=== PATIENT | female | born 1970 | race Two or more races ===

== ENCOUNTER 2020-03-08 12:35 | Emergency (ER) | payer OTHER, SELFPAY | END 2020-03-08 14:47 | disposition left against medical advice (07) | LOC: HO.ED 14:24 | PROVIDERS: Emergency Provider Internal Medicine; PCP Internal Medicine | DX: M54.5 Low back pain (principal); R10.9 Unspecified abdominal pain | CPT/HCPCS: 99281 ==

== ENCOUNTER 2020-03-14 12:24 | Emergency (ER) | payer OTHER, SELFPAY ==
[2020-03-14 13:22] VITALS: BP 138/80; PULSE 76; RESP 20; TEMP 37.6; O2SAT 94; BMI 48.6
--- NOTE | 2020-03-14 14:58 | PC.NURSE ---
PATIENT STATED TO THIS NURSE THAT SHE WAS GOING OUTSIDE FOR SOME AIR, PATIENT WAS THEN SEEN GETTING INTO A VEHICLE AND LEFT.
== END 2020-03-14 16:00 | disposition left against medical advice (07) ==
PROVIDERS: Emergency Provider Emergency Medicine; PCP Internal Medicine
DX: R10.9 Unspecified abdominal pain (principal)
CPT/HCPCS: 99281; 99282

== ENCOUNTER 2020-03-21 14:30 | Emergency (ER) | payer OTHER, SELFPAY ==
[2020-03-21 14:43] VITALS: BP 172/90; PULSE 101; RESP 18; TEMP 36.7; O2SAT 97; BMI 49.4
--- NOTE | 2020-03-21 15:05 | CT_ITS ---
EXAMINATION: CT ABDOMEN AND PELVIS WITHOUT CONTRAST CLINICAL INFORMATION: 49-year-old female with right-sided flank pain. Rule out kidney stone. COMPARISON: CT abdomen pelvis 11/04/2018 TECHNIQUE: Multidetector volumetric imaging was performed from the superior aspect of the liver through the pubic symphysis. Sagittal and coronal reformatted images were obtained on the technologist's workstation. Examination limited secondary to quantum mottle artifact from patient body habitus. This CT examination was performed using dose optimization techniques as appropriate, variously including the following: *Automated exposure control *Adjustment of mA and/or kV according to patient size (this includes techniques or standardized protocols for targeted exams where dose is matched to indication/reason for exam; i.e. extremities or head) *Use of iterative reconstruction technique DLP: 1626 mGy-cm FINDINGS: Visualized lung bases are well aerated. The liver is normal in size but demonstrates severely decreased attenuation. The gallbladder is decompressed but grossly unremarkable. The pancreas, spleen and adrenal glands are unremarkable. Symmetrically sized kidneys. No renal calculi or hydronephrosis bilaterally. Mild bilateral perinephric stranding is chronic. Normal caliber loops of small and large bowel. Normal appendix. Nonaneurysmal abdominal aorta. The bladder is normal in appearance. Unremarkable CT appearance of the uterus. No inguinal lymphadenopathy. No gross free pelvic fluid. Moderate diffuse degenerative changes of the spine. IMPRESSION: 1. No renal calculi or hydronephrosis of either kidney. 2. Diffusely decreased liver attenuation suggesting hepatic steatosis. Correlation with liver enzymes recommended.
[2020-03-21 15:25] LABS: Hematocrit 45.6 % (37-47); Hemoglobin 15.3 g/dl (12.0-16.0); Mean Corpuscular HGB Conc 33.6 g/dl (31.0-35.0); Mean Corpuscular Hemoglobin 28.6 pg (27.0-33.0); Mean Corpuscular Volume 85.2 fL (80-98); Mean Platelet Volume 10.4 fL (9.4-12.3); Platelet Count 225 X10*3/uL (160-400); Red Blood Count 5.35 X10*6/uL (4.20-5.50); Red Cell Distribution Width 12.9 % (11.0-16.0); White Blood Count 7.8 X10*3/uL (4.8-10.8)
[2020-03-21 15:26] LABS: Color Urine YELLOW; Glucose Urine UA >=1000 MG/DL (NEG); Leukocyte Esterase Urine NEG (NEG); Nitrite Urine NEG (NEG); PH 6.5 (5.0-8.0); Urine Blood TRACE (NEG); Urine Ketones NEG (NEG); Urine Protein NEG (NEG-TRACE)
[2020-03-21 15:27] LABS: Appearance Urine CLEAR
[2020-03-21 15:31] VITALS: BP 122/67; PULSE 81; RESP 20; TEMP 36.6; O2SAT 97
--- NOTE | 2020-03-21 15:39 | PC.NURSE ---
pt had iv established, labs obtained. pt then asking rn to remove iv because its too painful . iv removed, provider made aware. pt to be medicated w po meds. taken to ct scan via stretcher.
[2020-03-21 15:42] LABS: Bacteria Urine 1+ /LPF; RBC Urine 0-2 /HPF (0); Squamous Epithelial Cell Urine 2+ /LPF; WBC Urine 0 /HPF (0-4)
[2020-03-21 15:54] LABS: Alanine Aminotransferase 12 U/L (0-31); Albumin Level 3.5 g/dL (3.5-5.0); Alkaline Phosphatase 96 U/L (39-117); Anion Gap 11 (12-20); Aspartate Amino Transferase 16 U/L (5-31); Bilirubin Direct 0.2 mg/dL (0.0-0.5); Bilirubin Total 0.4 mg/dL (0.0-1.0); Blood Urea Nitrogen 9 mg/dL (9-16); Carbon Dioxide 32 mmol/L (22-29); Chloride 98 mmol/L (96-108); Creatinine Clr Calc Pharmacy 125.8; Estimated Glomerular Filt Rate > 60; Glucose Random 417 mg/dL (60-115); Lipase 29 U/L (8-78); Potassium 4.6 mmol/l (3.3-5.1); Sodium 136 mmol/L (135-145); Total Protein 6.9 g/dL (6.5-8.0)
[2020-03-21] MEDS: iohexoL 350 MG/ML 100 ML INFUS..BTL 85 ML IV (16:04)
[2020-03-21] MEDS: oxyCODONE HCl Immed Release 5 MG TABLET PO (16:24)
--- NOTE | 2020-03-21 16:29 | PC.NURSE ---
pt medicated per emar, tolerating po w/o issue.
--- NOTE | 2020-03-21 16:30 | ED_ITS ---
HPI - Abdominal Pain General Chief Complaint: Abdominal Pain Stated Complaint: FLANK PAIN Time Seen by Provider: 03/21/20 15:05 Source: patient Mode of arrival: ambulatory Limitations: no limitations History of Present Illness HPI narrative: patient presented with right flank pain for couple weeks, pain more with movement, also noticed blood in the urine on and off. Related Data Home Medications Medication Instructions Recorded Confirmed aripiprazole 2 mg tablet 2 mg PO DAILY 03/09/20 atorvastatin 40 mg tablet 40 mg PO DAILY 03/09/20 blood sugar diagnostic #10 ea 03/09/20 bupropion HCl 150 mg 24 hr tablet, 150 mg PO DAILY 03/09/20 extended release bupropion HCl 300 mg 24 hr tablet, 300 mg PO DAILY 03/09/20 extended release clindamycin HCl 300 mg capsule 300 mg PO TID 03/09/20 cyanocobalamin (vitamin B-12) 1,000 mcg PO DAILY 03/09/20 1,000 mcg tablet docusate sodium 100 mg capsule 100 mg PO BID 03/09/20 ergocalciferol (vitamin D2) 1,250 PO 03/09/20 mcg (50,000 unit) capsule escitalopram oxalate 10 mg tablet 10 mg PO DAILY 03/09/20 flash glucose sensor #1 ea 03/09/20 fluocinonide 0.05 % topical cream applic TOPICAL 03/09/20 hydroxyzine HCl 25 mg tablet 25 mg PO BID 03/09/20 insulin degludec 200 unit/mL (3 unit SUBCUT 03/09/20 mL) subcutaneous pen insulin glargine 100 unit/mL (3 50 unit SUBCUT BEDTIME 03/09/20 mL) subcutaneous pen insulin lispro 100 unit/mL unit SUBCUT 03/09/20 subcutaneous pen levothyroxine 200 mcg tablet 200 mcg PO DAILY 03/09/20 levothyroxine 50 mcg tablet 50 mcg PO DAILY 03/09/20 lorazepam 1 mg tablet 0.5 mg PO DAILY PRN 03/09/20 losartan 25 mg tablet 25 mg PO DAILY 03/09/20 omeprazole 20 mg capsule,delayed 20 mg PO DAILY 03/09/20 release sitagliptin 100 mg tablet 100 mg PO DAILY 03/09/20 venlafaxine 75 mg capsule,extended 75 mg PO DAILY 03/09/20 release 24 hr Previous Rx's Medication Instructions Recorded naproxen 500 mg tablet 500 mg PO BID PRN #30 tab 03/09/20 blood sugar diagnostic #100 ea 03/11/20 flash glucose sensor See Rx Instructions MISCELLANEOUS 03/11/20 Q2W #1 ea gabapentin 800 mg tablet 800 mg PO TID #84 tab 03/11/20 oxycodone-acetaminophen [Percocet] 1 tab PO Q8H PRN #10 tab 03/21/20 Allergies Allergy/AdvReac Type Severity Reaction Status Date / Time doxycycline [DOXYCYCLINE] Allergy Severe THROAT Verified 03/14/20 13:22 SWELLING clindamycin [CLINDAMYCIN] Allergy Intermediate CHEST PAIN Verified 03/14/20 13:22 Sulfa (Sulfonamide Allergy Unknown makes her Verified 03/14/20 13:22 Antibiotics) sick, vomit trimethoprim [From BACTRIM] Allergy Unknown NAUSEA & Verified 03/14/20 13:22 VOMITING sulfamethoxazole AdvReac Mild NAUSEA & Verified 03/14/20 13:22 [From BACTRIM] VOMITING lisinopril Allergy Unknown headaches Uncoded 03/14/20 13:22 Review of Systems Review of Systems Yes all other systems are reviewed and are negative Physical Exam Vital Signs: Vital Signs: Vital Signs Temp Pulse Resp BP Pulse Ox 03/21/20 15:31 98 F 81 20 122/67 97 03/21/20 14:43 98.0 F 101 H 18 172/90 H 97 Body Mass Index 49.4 Const: General: cooperative and healthy appearing Orientation/consciousness: oriented to person and oriented to place HENMT: Head: Yes normal to inspection Ears: hearing grossly normal bilaterally General nose exam: Normal external nose present Eyes: General: appearance normal, both eyes and all related structures Neck: Neck: Yes normal visual inspection and Yes full ROM Chest: Chest palpation & inspection: normal inspection of the chest Resp: Effort & Inspection: normal respiratory effort and able to speak in co mplete sentences Cardio: Jugular venous distension: no JVD Palpation: normal PMI GI: Inspection: Yes normal to inspection and Yes abdominal wall ecchymosis Palpation (GI): nontender : General: Yes CVA tenderness ( Right.) Back/Spine/Pelvis: Back: CVA tenderness ( Right.) Skin: General skin exam: no rashes or lesions noted Neuro: General: oriented to person and oriented to place Extrem: General: Yes normal to inspection Course Course Course Narrative: 49-year-old female presented with right flank pain, patient had a history of kidney stone and noticed some blood in the urine on and off, but also physical exam is more consistent with muscular pain. Will obtain UA, labs, CT of the abdomen pelvis, pain medication. MDM - Abdominal Pain MDM Narrative Medical decision making narrative: 49-year-old female with couple weeks of right flank pain, found to be hyperglycemic, no anion gap elevated bicarb. 1. CT /UA of the abdomen pelvis ruled out kidney stone. 2. Hyperglycemia with no DKA. Will give IV fluid and 10 units of insulin IV will recheck sugar. Medical Records Attestation: I reviewed the patient's medical records. Lab Data Attestation: I reviewed the patient's lab results. Result diagrams: 03/21/20 15:19 03/21/20 15:19 Labs: Lab Results 03/21/20 03/21/20 03/21/20 Range/Units 15:18 15:19 15:19 WBC 7.8 (4.8-10.8) X10*3/uL RBC 5.35 (4.20-5.50) X10*6/uL Hgb 15.3 (12.0-16.0) g/dl Hct 45.6 (37-47) % MCV 85.2 (80-98) fL MCH 28.6 (27.0-33.0) pg MCHC 33.6 (31.0-35.0) g/dl RDW 12.9 (11.0-16.0) % Plt Count 225 (160-400) X10*3/uL MPV 10.4 (9.4-12.3) fL Absolute Nucleated RBC 0.000 (0.0-0.012) X10*3/uL Nucleated RBC % (auto) 0.0 (0.0-0.2) /100WBC Sodium 136 (135-145) mmol/L Potassium 4.6 (3.3-5.1) mmol/l Chloride 98 (96-108) mmol/L Carbon Dioxide 32 H (22-29) mmol/L Anion Gap 11 L (12-20) BUN 9 (9-16) mg/dL Creatinine 0.77 (0.5-1.4) mg/dL Estim Creat Clear Calc 125.8 Estimated GFR > 60 Random Glucose 417 H* (60-115) mg/dL Calcium 9.0 (8.4-10.2) mg/dL Total Bilirubin 0.4 (0.0-1.0) mg/dL Direct Bilirubin 0.2 (0.0-0.5) mg/dL AST 16 (5-31) U/L ALT 12 (0-31) U/L Alkaline Phosphatase 96 (39-117) U/L Total Protein 6.9 (6.5-8.0) g/dL Albumin 3.5 (3.5-5.0) g/dL Lipase 29 (8-78) U/L Urine Color YELLOW Urine Appearance CLEAR Urine pH 6.5 (5.0-8.0) Ur Specific [place] 1.020 (1.005-1.025) Urine Protein NEG (NEG-TRACE) MG/DL Urine Glucose (UA) >=1000 H (NEG) MG/DL Urine Ketones NEG (NEG) MG/DL Urine Blood TRACE (NEG) Urine Nitrite NEG (NEG) Ur Leukocyte Esterase NEG (NEG) Urine RBC 0-2 (0) /HPF Urine WBC 0 (0-4) /HPF Ur Squamous Epith Cells 2+ /LPF Urine Bacteria 1+ /LPF Imaging Data CT scan - abdomen: Radiologist's impression: No acute pathology no Ureteral stones. Discharge Plan Discharge Clinical Impression: Flank pain, Acute hyperglycemia Patient Disposition: Home, Self-Care Instructions: Flank Pain (ED), Diabetic Hyperglycemia (ED) Prescriptions: New oxycodone-acetaminophen [Percocet] 5-325 mg tablet 1 tab PO Q8H PRN (Reason: pain) Qty: 10 RF: 0 No Action gabapentin 800 mg tablet 800 mg PO TID Qty: 84 RF: 6 flash glucose sensor [FreeStyle Abdon 14 Day Sensor] Kit See Rx Instructions miscellaneous Q2W Qty: 1 RF: 6 hydroxyzine HCl 25 mg tablet 25 mg PO BID RF: 0 naproxen 500 mg tablet 500 mg PO BID PRN (Reason: pain) Qty: 30 RF: 0 Referrals: Marissa Ward MD [Primary Care Provider] - 2 days PMF Past Medical History Medical History Anxiety Depression Diabetes Surgical History H/O thyroidectomy Hx of tubal ligation Social History Social History Alcohol intake: never Smoking Status: Current every day smoker Use of substances other than those prescribed or required for medical reasons: No Advance Directives: No Advance Directives Information Provided: No
[2020-03-21] MEDS: Insulin Regular, Human 100 UNIT/ML 3 ML VIAL 10 UNIT IVPUSH (17:23)
--- NOTE | 2020-03-21 17:26 | PC.NURSE ---
PT IV REESTABLISHED, PT CONTINUES TO COMPLAIN OF PAIN, APPEARS VERY RESTLESS, OFFERED DIFFERENT SEATING OPTION FOR COMFORT. MEDICATED PER EMAR. GOAL TO GET GLUCOSE <310. PT AWARE OF PLAN OF CARE.
[2020-03-21] MEDS: traMADoL HCL 50 MG TABLET PO (18:08)
[2020-03-21 18:59] LABS: Glucose, Whole Blood 175 mg/dL (60-115)
--- NOTE | 2020-03-21 20:37 | ED.ABDPAIN ---
HPI - Abdominal Pain General Chief Complaint: Abdominal Pain Stated Complaint: FLANK PAIN Time Seen by Provider: 03/21/20 15:05 Source: patient Mode of arrival: ambulatory Limitations: no limitations Related Data Home Medications Medication Instructions Recorded Confirmed aripiprazole 2 mg tablet 2 mg PO DAILY 03/09/20 atorvastatin 40 mg tablet 40 mg PO DAILY 03/09/20 blood sugar diagnostic #10 ea 03/09/20 bupropion HCl 150 mg 24 hr tablet, 150 mg PO DAILY 03/09/20 extended release bupropion HCl 300 mg 24 hr tablet, 300 mg PO DAILY 03/09/20 extended release clindamycin HCl 300 mg capsule 300 mg PO TID 03/09/20 cyanocobalamin (vitamin B-12) 1,000 mcg PO DAILY 03/09/20 1,000 mcg tablet docusate sodium 100 mg capsule 100 mg PO BID 03/09/20 ergocalciferol (vitamin D2) 1,250 PO 03/09/20 mcg (50,000 unit) capsule escitalopram oxalate 10 mg tablet 10 mg PO DAILY 03/09/20 flash glucose sensor #1 ea 03/09/20 fluocinonide 0.05 % topical cream applic TOPICAL 03/09/20 hydroxyzine HCl 25 mg tablet 25 mg PO BID 03/09/20 insulin degludec 200 unit/mL (3 unit SUBCUT 03/09/20 mL) subcutaneous pen insulin glargine 100 unit/mL (3 50 unit SUBCUT BEDTIME 03/09/20 mL) subcutaneous pen insulin lispro 100 unit/mL unit SUBCUT 03/09/20 subcutaneous pen levothyroxine 200 mcg tablet 200 mcg PO DAILY 03/09/20 levothyroxine 50 mcg tablet 50 mcg PO DAILY 03/09/20 lorazepam 1 mg tablet 0.5 mg PO DAILY PRN 03/09/20 losartan 25 mg tablet 25 mg PO DAILY 03/09/20 omeprazole 20 mg capsule,delayed 20 mg PO DAILY 03/09/20 release sitagliptin 100 mg tablet 100 mg PO DAILY 03/09/20 venlafaxine 75 mg capsule,extended 75 mg PO DAILY 03/09/20 release 24 hr Previous Rx's Medication Instructions Recorded naproxen 500 mg tablet 500 mg PO BID PRN #30 tab 03/09/20 blood sugar diagnostic #100 ea 03/11/20 flash glucose sensor See Rx Instructions MISCELLANEOUS 03/11/20 Q2W #1 ea gabapentin 800 mg tablet 800 mg PO TID #84 tab 03/11/20 oxycodone-acetaminophen [Endocet] 1 tab PO Q8H PRN #10 tab 03/21/20 oxycodone-acetaminophen [Percocet] 1 tab PO Q8H PRN #10 tab 03/21/20 Allergies Allergy/AdvReac Type Severity Reaction Status Date / Time doxycycline [DOXYCYCLINE] Allergy Severe THROAT Verified 03/14/20 13:22 SWELLING clindamycin [CLINDAMYCIN] Allergy Intermediate CHEST PAIN Verified 03/14/20 13:22 Sulfa (Sulfonamide Allergy Unknown makes her Verified 03/14/20 13:22 Antibiotics) sick, vomit trimethoprim [From BACTRIM] Allergy Unknown NAUSEA & Verified 03/14/20 13:22 VOMITING sulfamethoxazole AdvReac Mild NAUSEA & Verified 03/14/20 13:22 [From BACTRIM] VOMITING lisinopril Allergy Unknown headaches Uncoded 03/14/20 13:22 Physical Exam Vital Signs: Vital Signs: Vital Signs Temp Pulse Resp BP Pulse Ox 03/21/20 15:31 98 F 81 20 122/67 97 03/21/20 14:43 98.0 F 101 H 18 172/90 H 97 Body Mass Index 49.4 MDM - Abdominal Pain Lab Data Result diagrams: 03/21/20 15:19 03/21/20 15:19 Labs: Lab Results 03/21/20 03/21/20 03/21/20 Range/Units 15:18 15:19 15:19 WBC 7.8 (4.8-10.8) X10*3/uL RBC 5.35 (4.20-5.50) X10*6/uL Hgb 15.3 (12.0-16.0) g/dl Hct 45.6 (37-47) % MCV 85.2 (80-98) fL MCH 28.6 (27.0-33.0) pg MCHC 33.6 (31.0-35.0) g/dl RDW 12.9 (11.0-16.0) % Plt Count 225 (160-400) X10*3/uL MPV 10.4 (9.4-12.3) fL Absolute Nucleated RBC 0.000 (0.0-0.012) X10*3/uL Nucleated RBC % (auto) 0.0 (0.0-0.2) /100WBC Sodium 136 (135-145) mmol/L Potassium 4.6 (3.3-5.1) mmol/l Chloride 98 (96-108) mmol/L Carbon Dioxide 32 H (22-29) mmol/L Anion Gap 11 L (12-20) BUN 9 (9-16) mg/dL Creatinine 0.77 (0.5-1.4) mg/dL Estim Creat Clear Calc 125.8 Estimated GFR > 60 POC Glucose (60-115) mg/dL Random Glucose 417 H* (60-115) mg/dL Calcium 9.0 (8.4-10.2) mg/dL Total Bilirubin 0.4 (0.0-1.0) mg/dL Direct Bilirubin 0.2 (0.0-0.5) mg/dL AST 16 (5-31) U/L ALT 12 (0-31) U/L Alkaline Phosphatase 96 (39-117) U/L Total Protein 6.9 (6.5-8.0) g/dL Albumin 3.5 (3.5-5.0) g/dL Lipase 29 (8-78) U/L Urine Color YELLOW Urine Appearance CLEAR Urine pH 6.5 (5.0-8.0) Ur Specific [place] 1.020 (1.005-1.025) Urine Protein NEG (NEG-TRACE) MG/DL Urine Glucose (UA) >=1000 H (NEG) MG/DL Urine Ketones NEG (NEG) MG/DL Urine Blood TRACE (NEG) Urine Nitrite NEG (NEG) Ur Leukocyte Esterase NEG (NEG) Urine RBC 0-2 (0) /HPF Urine WBC 0 (0-4) /HPF Ur Squamous Epith Cells 2+ /LPF Urine Bacteria 1+ /LPF 03/21/ Range/Units 18:51 WBC (4.8-10.8) X10*3/uL RBC (4.20-5.50) X10*6/uL Hgb (12.0-16.0) g/dl Hct (37-47) % MCV (80-98) fL MCH (27.0-33.0) pg MCHC (31.0-35.0) g/dl RDW (11.0-16.0) % Plt Count (160-400) X10*3/uL MPV (9.4-12.3) fL Absolute Nucleated RBC (0.0-0.012) X10*3/uL Nucleated RBC % (auto) (0.0-0.2) /100WBC Sodium (135-145) mmol/L Potassium (3.3-5.1) mmol/l Chloride (96-108) mmol/L Carbon Dioxide (22-29) mmol/L Anion Gap (12-20) BUN (9-16) mg/dL Creatinine (0.5-1.4) mg/dL Estim Creat Clear Calc Estimated GFR POC Glucose 175 H (60-115) mg/dL Random Glucose (60-115) mg/dL Calcium (8.4-10.2) mg/dL Total Bilirubin (0.0-1.0) mg/dL Direct Bilirubin (0.0-0.5) mg/dL AST (5-31) U/L ALT (0-31) U/L Alkaline Phosphatase (39-117) U/L Total Protein (6.5-8.0) g/dL Albumin (3.5-5.0) g/dL Lipase (8-78) U/L Urine Color Urine Appearance Urine pH (5.0-8.0) Ur Specific [place] (1.005-1.025) Urine Protein (NEG-TRACE) MG/DL Urine Glucose (UA) (NEG) MG/DL Urine Ketones (NEG) MG/DL Urine Blood (NEG) Urine Nitrite (NEG) Ur Leukocyte Esterase (NEG) Urine RBC (0) /HPF Urine WBC (0-4) /HPF Ur Squamous Epith Cells /LPF Urine Bacteria /LPF Discharge Plan Discharge Clinical Impression: Flank pain, Acute hyperglycemia Patient Disposition: Home, Self-Care Instructions: Flank Pain (ED), Diabetic Hyperglycemia (ED) Prescriptions: New oxycodone-acetaminophen [Percocet] 5-325 mg tablet 1 tab PO Q8H PRN (Reason: pain) Qty: 10 RF: 0 oxycodone-acetaminophen [Endocet] 5-325 mg tablet 1 tab PO Q8H PRN (Reason: pain) Qty: 10 RF: 0 No Action gabapentin 800 mg tablet 800 mg PO TID Qty: 84 RF: 6 flash glucose sensor [FreeStyle Abdon 14 Day Sensor] Kit See Rx Instructions miscellaneous Q2W Qty: 1 RF: 6 hydroxyzine HCl 25 mg tablet 25 mg PO BID RF: 0 naproxen 500 mg tablet 500 mg PO BID PRN (Reason: pain) Qty: 30 RF: 0 Referrals: Marissa Ward MD [Primary Care Provider] - 2 days Interventions: ED Discharge Assessment Last Done: 03/21/20 19:41 Discharge Date/Time: 03/21/20 19:42 PMFSH Past Medical History Medical History Anxiety Depression Diabetes Surgical History H/O thyroidectomy Hx of tubal ligation Social History Social History Alcohol intake: never Smoking Status: Current every day smoker Use of substances other than those prescribed or required for medical reasons: No Advance Directives: No Advance Directives Information Provided: No
== END 2020-03-21 19:42 | disposition home or self-care (01) ==
PROVIDERS: Emergency Provider Emergency Medicine; PCP Internal Medicine
DX: R10.9 Unspecified abdominal pain (principal); E11.65 Type 2 diabetes mellitus with hyperglycemia; F17.200 Nicotine dependence, unspecified, uncomplicated
CPT/HCPCS: 36415; 74176; 80048; 80076; 81001; 82947; 83690; 85027; 96361; 96365; 96375; 99284

== ENCOUNTER 2020-07-01 13:29 | Emergency (ER) | payer OTHER, SELFPAY ==
[2020-07-01 13:48] VITALS: PULSE 92; RESP 16; TEMP 36.8; O2SAT 100; BMI 47.2
--- NOTE | 2020-07-01 14:18 | ED.EXTPRO ---
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 She states the pain is shooting from her back to her lower left leg. She has a history of sciatica. She also reports 1 month of left finger numbness with intermittent neck pain. She has known neuropathy and is on high dose gabapentin. She has not taken her glucose at home in a long time but reports compliance with insulin and meds. No LE weakness, incontinence, or LE tingling. No trauma. MD Complaint: extremity pain Onset (ago): day(s) (1) Pain Consistency: constant Location: left and lower extremity Severity scale (1-10): 8 Quality: burning, stabbing and aching Radiation: distal Relieving factors: immobilization and medication Exacerbating factors: range of motion, weight bearing, walking and palpation Associated symptoms: denies other symptoms Related Data Home Medications Medication Instructions Recorded Confirmed aripiprazole 2 mg tablet 2 mg PO DAILY 03/09/20 atorvastatin 40 mg tablet 40 mg PO DAILY 03/09/20 blood sugar diagnostic #10 ea 03/09/20 bupropion HCl 150 mg 24 hr tablet, 150 mg PO DAILY 03/09/20 extended release bupropion HCl 300 mg 24 hr tablet, 300 mg PO DAILY 03/09/20 extended release clindamycin HCl 300 mg capsule 300 mg PO TID 03/09/20 cyanocobalamin (vitamin B-12) 1,000 mcg PO DAILY 03/09/20 1,000 mcg tablet docusate sodium 100 mg capsule 100 mg PO BID 03/09/20 ergocalciferol (vitamin D2) 1,250 PO 03/09/20 mcg (50,000 unit) capsule escitalopram oxalate 10 mg tablet 10 mg PO DAILY 03/09/20 flash glucose sensor #1 ea 03/09/20 fluocinonide 0.05 % topical cream applic TOPICAL 03/09/20 hydroxyzine HCl 25 mg tablet 25 mg PO BID 03/09/20 insulin degludec 200 unit/mL (3 unit SUBCUT 03/09/20 mL) subcutaneous pen insulin glargine 100 unit/mL (3 50 unit SUBCUT BEDTIME 03/09/20 mL) subcutaneous pen insulin lispro 100 unit/mL unit SUBCUT 03/09/20 subcutaneous pen levothyroxine 200 mcg tablet 200 mcg PO DAILY 03/09/20 levothyroxine 50 mcg tablet 50 mcg PO DAILY 03/09/20 lorazepam 1 mg tablet 0.5 mg PO DAILY PRN 03/09/20 losartan 25 mg tablet 25 mg PO DAILY 03/09/20 omeprazole 20 mg capsule,delayed 20 mg PO DAILY 03/09/20 release sitagliptin 100 mg tablet 100 mg PO DAILY 03/09/20 venlafaxine 75 mg capsule,extended 75 mg PO DAILY 03/09/20 release 24 hr Previous Rx's Medication Instructions Recorded naproxen 500 mg tablet 500 mg PO BID PRN #30 tab 03/09/20 blood sugar diagnostic #100 ea 03/11/20 flash glucose sensor See Rx Instructions MISCELLANEOUS 03/11/20 Q2W #1 ea gabapentin 800 mg tablet 800 mg PO TID #84 tab 03/11/20 oxycodone-acetaminophen [Endocet] 1 tab PO Q8H PRN #10 tab 03/21/20 oxycodone-acetaminophen [Percocet] 1 tab PO Q8H PRN #10 tab 03/21/20 blood sugar diagnostic #100 ea 04/06/20 sitagliptin 100 mg tablet 100 mg PO DAILY 30 Days #30 tab 04/12/20 insulin lispro 100 unit/mL 20 unit SUBCUT TID #15 ml 05/18/20 subcutaneous pen fluticasone propionate 100 1 inh INHALATION BID #60 ea 06/14/20 mcg/actuation blister powder for inhalation cyclobenzaprine 10 mg PO TID PRN #15 tab 07/01/20 ibuprofen 600 mg PO Q8H PRN #15 tab 07/01/20 lidocaine [Lidoderm] 1 patch TOPICAL DAILY #15 ea 07/01/20 Allergies Allergy/AdvReac Type Severity Reaction Status Date / Time doxycycline [DOXYCYCLINE] Allergy Severe THROAT Verified 03/14/20 13:22 SWELLING clindamycin [CLINDAMYCIN] Allergy Intermediate CHEST PAIN Verified 03/14/20 13:22 Sulfa (Sulfonamide Allergy Unknown makes her Verified 03/14/20 13:22 Antibiotics) sick, vomit trimethoprim [From BACTRIM] Allergy Unknown NAUSEA & Verified 03/14/20 13:22 VOMITING sulfamethoxazole AdvReac Mild NAUSEA & Verified 03/14/20 13:22 [From BACTRIM] VOMITING lisinopril Allergy Unknown headaches Uncoded 03/14/20 13:22 Review of Systems Review of Systems: Constitutional: No Fever, No Chills ENT/Mouth: No sore throat, No Rhinorrhea, No Swallowing Difficulty Eyes: No Eye Pain, No Swelling, No Redness Cardiovascular: No Chest Pain, No SOB, No Orthopnea, No Edema Respiratory: No Cough, No Sputum, No Wheezing, No dyspnea Gastrointestinal: No Nausea, No Vomiting, No Diarrhea, No abdominal Pain, No Hematochezia, No Melena Genitourinary: No Dysuria, No Urinary Frequency, No Hematuria Musculoskeletal: + joint pain, + Myalgias Skin: No Skin Lesions, No rash Neuro: No Weakness, + Numbness, No Dizziness, No Headache Psych: + Anxiety/Panic, No Depression Heme/Lymph: No Bruising, No Lymphadenopathy Endocrine: No Polyuria, No Polydipsia [facility] Past Medical History Medical History (Updated 07/01/20 @ 15:49 by KERRY Kim) Anxiety B12 deficiency Depression Diabetes Hyperlipidemia Migraines Morbid obesity Sciatic leg pain Surgical History H/O thyroidectomy Hx of tubal ligation Family History Family History (Updated 03/22/20 @ 12:46 by Mallory Sexton, RMA, [facility]) Father HTN (hypertension) CVD (cardiovascular disease) Diabetes mellitus Mother Diabetes mellitus Uterine cancer COPD (chronic obstructive pulmonary disease) Maternal Grandmother Breast cancer Paternal Aunt Breast cancer Brother No problems noted. Sister No problems noted. Sister No problems noted. Sister No problems noted. Daughter No problems noted. Son No problems noted. Son No problems noted. Son No problems noted. Son No problems noted. Son No problems noted. Son No problems noted. Social History Social History Alcohol intake: never Smoking Status: Current every day smoker Advance Directives: No Advance Directives Information Provided: No Physical Exam Vital Signs: Vital Signs: Last Vital Signs Temp 98.3 F 07/01/20 13:48 Pulse 92 07/01/20 13:48 Resp 16 07/01/20 13:48 Pulse Ox 100 07/01/20 13:48 Body Mass Index 47.2 Appearance: Alert. Oriented X3. No acute distress. HEENT: normal inspection CVS: Normal heart rate and rhythm. Pulses normal. Respiratory: No respiratory distress. Skin: Skin warm and dry. Normal skin color. Normal skin turgor. No rashes. Extremities: LE thin, atraumatic, normal DTRs. Left sided SI joint tenderness. Neuro: Oriented X 3. No motor deficit. Ambulates with limp. Mild sensory deficit to tips of all 4 fingers on left hand. Course Course Course Narrative: 49 y/o female with obesity and DM presenting with left sided scaitic pain x1 day numbness in left fingers x1 month. Likely related to obesity and worsening neuropathy. Exam is non-focal. She has SI tenderness. She has not been checking her sugars. Will check POC now and give dose of Toradol and Flexeril and reassess. Reevaluation(s) Reevaluation #1: Pain improved to a 3 after medications. Will treat for sciatica and have her f/u with her PCP for further management. She has been counseled on glucose control and weight loss. Stable for discharge. MDM - Extremity (Nontraumatic) Lab Data Labs: Lab Results 07/01/20 07/01/20 Range/Units 14:40 16:07 POC Glucose 380 H* 362 H* (60-115) mg/dL Critical Care Time Critical Care Time Critical Care Time: No Discharge Plan Discharge Clinical Impression: Chronic hyperglycemia Sciatica Qualifiers: Laterality: left Qualified Code(s): M54.32 - Sciatica, left side Patient Disposition: Home, Self-Care Instructions: Sciatica (ED), Lower Back Exercises (ED), Diabetes and Exercise (ED) Additional Instructions: Your glucose was very elevated today. It is important to monitor your sugars daily and stick to a low carb and low sugar diet. Weight loss will help your leg and back pain. Take the prescribed medications as needed for pain. Follow up with your doctor early next week. Prescriptions: New cyclobenzaprine 10 mg tablet 10 mg PO TID PRN (Reason: muscle spasm) Qty: 15 RF: 0 ibuprofen 600 mg tablet 600 mg PO Q8H PRN (Reason: pain) Qty: 15 RF: 0 lidocaine [Lidoderm] 5 % adhesive patch,medicated 1 patch topical DAILY Qty: 15 RF: 0 No Action (DME) FreeStyle Test Strip See Rx Instructions .ROUTE .MEDSUPPLY Qty: 100 RF: 3 gabapentin 800 mg tablet 800 mg PO TID Qty: 84 RF: 6 flash glucose sensor [FreeStyle Abdon 14 Day Sensor] Kit See Rx Instructions miscellaneous Q2W Qty: 1 RF: 6 (DME) FreeStyle Lite Strips Strip See Rx Instructions .ROUTE .MEDSUPPLY Qty: 100 RF: 0 Januvia 100 mg tablet 100 mg PO DAILY 30 Days Qty: 30 RF: 11 insulin lispro [Admelog SoloStar U-100 Insulin] 100 unit/mL insulin pen 20 unit subcut TID Qty: 15 RF: 6 Flovent Diskus 100 mcg/actuation blister with device 1 inh inhalation BID Qty: 60 RF: 6 oxycodone-acetaminophen [Percocet] 5-325 mg tablet 1 tab PO Q8H PRN (Reason: pain) Qty: 10 RF: 0 oxycodone-acetaminophen [Endocet] 5-325 mg tablet 1 tab PO Q8H PRN (Reason: pain) Qty: 10 RF: 0 hydroxyzine HCl 25 mg tablet 25 mg PO BID RF: 0 naproxen 500 mg tablet 500 mg PO BID PRN (Reason: pain) Qty: 30 RF: 0
[2020-07-01] MEDS: Cyclobenzaprine HCl 10 MG TABLET PO (14:34)
[2020-07-01] MEDS: Ketorolac Tromethamine 60 MG/2 ML VIAL IM (14:34)
[2020-07-01 14:45] LABS: Glucose, Whole Blood 380 mg/dL (60-115)
[2020-07-01] MEDS: Insulin Lispro 100 UNIT/ML 3 ML VIAL 12 UNIT SUBCUT (14:54)
[2020-07-01 16:11] LABS: Glucose, Whole Blood 362 mg/dL (60-115)
== END 2020-07-01 16:43 | disposition home or self-care (01) ==
PROVIDERS: Emergency Provider Emergency Medicine; PCP Nurse Practitioner Family
DX: E11.65 Type 2 diabetes mellitus with hyperglycemia (principal); M54.42 Lumbago with sciatica, left side; F17.200 Nicotine dependence, unspecified, uncomplicated
CPT/HCPCS: 82947; 96372; 99283; 99284; J1885

== ENCOUNTER 2020-07-07 14:17 | Outpatient (REF) | payer OTHER, SELFPAY | END 2020-07-07 14:18 | disposition home or self-care (01) | LOC: HO.LAB 14:17 | PROVIDERS: Visit Provider Nurse Practitioner Family | DX: H10.32 Unspecified acute conjunctivitis, left eye (principal); Z20.822 Contact with and (suspected) exposure to COVID-19 | CPT/HCPCS: U0003; U0005 ==

== ENCOUNTER 2020-09-09 13:56 | Emergency (ER) | payer OTHER, SELFPAY ==
[2020-09-09 14:48] VITALS: BP 167/87; PULSE 90; RESP 16; TEMP 36.9; O2SAT 96; BMI 46.5
[2020-09-09 15:06] LABS: Glucose, Whole Blood 471 mg/dL (60-115)
[2020-09-09] MEDS: 0.9 % Sodium Chloride 1,000 ML 999 ML IVCONT (17:10)
[2020-09-09 17:18] LABS: MANUAL DIFF FLAG NO
[2020-09-09 17:20] LABS: Basophils Absolute Auto 0.1 X10*3/uL (0.0-0.2); Basophils Percent Auto 0.7 % (0-2); Eosinophils Absolute Auto 0.2 X10*3/uL (0.0-0.4); Hematocrit 49.1 % (37-47); Hemoglobin 16.6 g/dl (12.0-16.0); Imm Gran Abs Auto 0.02 X10*3/uL (0.00-0.03); Imm Gran Pct Auto 0.2 % (0.0-0.4); Lymphocytes Absolute Auto 3.2 X10*3/uL (1.2-4.9); Lymphocytes Percent Auto 37.6 % (20-40); Mean Corpuscular HGB Conc 33.8 g/dl (31.0-35.0); Mean Corpuscular Hemoglobin 29.3 pg (27.0-33.0); Mean Corpuscular Volume 86.6 fL (80-98); Mean Platelet Volume 10.4 fL (9.4-12.3); Monocytes Absolute Auto 0.5 X10*3/uL (0.1-1.2); Monocytes Percent Auto 5.8 % (2-11); Neutrophils Absolute Auto 4.6 X10*3/uL (2.0-8.3); Neutrophils Percent Auto 53.7 % (45-73); Platelet Count 269 X10*3/uL (160-400); Red Blood Count 5.67 X10*6/uL (4.20-5.50); White Blood Count 8.6 X10*3/uL (4.8-10.8)
[2020-09-09 17:26] LABS: Glucose Urine UA >=1000 MG/DL (NEG); Leukocyte Esterase Urine NEG (NEG); Nitrite Urine NEG (NEG); PH 6.5 (5.0-8.0); Urine Blood NEG (NEG); Urine Ketones NEG (NEG); Urine Protein NEG (NEG-TRACE)
[2020-09-09 17:43] LABS: Acetone, serum QL Negative (Negative)
[2020-09-09 17:48] LABS: UPreg QC Valid YES; Urine Pregnancy NEGATIVE (NEGATIVE)
[2020-09-09 17:49] LABS: Appearance Urine CLEAR; Color Urine YELLOW
[2020-09-09 17:49] LABS: Anion Gap 11 (12-20); Blood Urea Nitrogen 8 mg/dL (9-16); Calcium 8.8 mg/dL (8.4-10.2); Carbon Dioxide 32 mmol/L (22-29); Chloride 99 mmol/L (96-108); Creatinine Clr Calc Pharmacy 112.9; Estimated Glomerular Filt Rate > 60; Glucose Random 415 mg/dL (60-115); Potassium 4.5 mmol/L (3.3-5.1); Sodium 137 mmol/L (135-145)
[2020-09-09 17:57] LABS: RBC Urine 0 /HPF (0); Squamous Epithelial Cell Urine 2+ /LPF
[2020-09-09] MEDS: LORazepam 1 MG TABLET PO (17:58)
--- NOTE | 2020-09-09 18:08 | ED_ITS ---
HPI - General Adult General Chief complaint: Skin/Abscess/Foreign Body Stated complaint: abscess Time Seen by Provider: 09/09/20 16:43 History of Present Illness HPI narrative: Patient complains of a infected wound on the left side of her lower abdomen that is currently being treated with Keflex antibiotic, the redness is improving but the wound itself remains She also complains that her glucometer showed her sugar was high and she has been forgetting sometimes to take her insulin so she wanted her sugar checked here which was over 400 She denies fever chills dizziness weakness chest pain no fainting no feeling faint Related Data Home Medications Medication Instructions Recorded Confirmed atorvastatin 40 mg tablet 40 mg PO DAILY 03/09/20 09/06/20 blood sugar diagnostic #10 ea 03/09/20 09/06/20 cyanocobalamin (vitamin B-12) 1,000 mcg PO DAILY 03/09/20 09/06/20 1,000 mcg tablet ergocalciferol (vitamin D2) 1,250 PO 03/09/20 09/06/20 mcg (50,000 unit) capsule escitalopram oxalate 10 mg tablet 10 mg PO DAILY 03/09/20 09/06/20 flash glucose sensor #1 ea 03/09/20 09/06/20 fluocinonide 0.05 % topical cream applic TOPICAL 03/09/20 09/06/20 hydroxyzine HCl 25 mg tablet 25 mg PO BID 03/09/20 09/06/20 insulin degludec 200 unit/mL (3 unit SUBCUT 03/09/20 09/06/20 mL) subcutaneous pen insulin glargine 100 unit/mL (3 50 unit SUBCUT BEDTIME 03/09/20 09/06/20 mL) subcutaneous pen insulin lispro 100 unit/mL unit SUBCUT 03/09/20 09/06/20 subcutaneous pen losartan 25 mg tablet 25 mg PO DAILY 03/09/20 09/06/20 omeprazole 20 mg capsule,delayed 20 mg PO DAILY 03/09/20 09/06/20 release albuterol sulfate 90 mcg/actuation INHALATION 07/14/20 09/06/20 aerosol inhaler Previous Rx's Medication Instructions Recorded blood sugar diagnostic #100 ea 03/11/20 flash glucose sensor See Rx Instructions MISCELLANEOUS 03/11/20 Q2W #1 ea gabapentin 800 mg tablet 800 mg PO TID #84 tab 03/11/20 ibuprofen 600 mg PO Q8H PRN #15 tab 07/01/20 lidocaine [Lidoderm] 1 patch TOPICAL DAILY #15 ea 07/01/20 blood sugar diagnostic 1 strip MISCELLANEOUS QID 30 Days 07/07/20 #100 strip erythromycin 5 mg/gram (0.5 %) eye 1 appl OPHTHALMIC (EYE) QID 7 Days 07/07/20 ointment #3.5 g ofloxacin 0.3 % eye drops See Rx Instructions OPHTHALMIC 07/14/20 (EYE) .COMPLEX 14 Days #10 ml fluticasone propionate 100 1 inh PO BID #60 ea 08/09/20 mcg/actuation blister powder for inhalation insulin lispro 100 unit/mL 20 unit SUBCUT TID #15 ml 08/09/20 subcutaneous pen amoxicillin 875 mg-potassium 1 tab PO BID #20 tab 08/16/20 clavulanate 125 mg tablet prednisone 20 mg tablet 20 mg PO .COMPLEX #18 tab 08/16/20 levothyroxine 200 mcg tablet 200 mcg PO DAILY #90 tab 09/03/20 levothyroxine 50 mcg tablet 50 mcg PO DAILY #90 tab 09/03/20 cephalexin 500 mg capsule 500 mg PO QID 7 Days #28 cap 09/06/20 ondansetron HCl [Zofran] 4 mg PO Q6H PRN #10 tab 09/09/20 sulfamethoxazole-trimethoprim 1 tab PO Q12H 7 Days #14 tab 09/09/20 [Bactrim DS] Allergies Allergy/AdvReac Type Severity Reaction Status Date / Time doxycycline [DOXYCYCLINE] Allergy Severe THROAT Verified 09/09/20 14:58 SWELLING clindamycin [CLINDAMYCIN] Allergy Intermediate CHEST PAIN Verified 09/09/20 14:58 Sulfa (Sulfonamide Allergy Unknown makes her Verified 09/09/20 14:58 Antibiotics) sick, vomit trimethoprim [From BACTRIM] Allergy Unknown NAUSEA & Verified 09/09/20 14:58 VOMITING sulfamethoxazole AdvReac Mild NAUSEA & Verified 09/09/20 14:58 [From BACTRIM] VOMITING lisinopril Allergy Unknown headaches Uncoded 09/09/20 14:58 Review of Systems Review of Systems: Positive for left lower abdominal ulceration and area of redness Denies fever chills dizziness weakness no headache no chest pain no shortness of breath no nausea no vomiting no dysphagia no diarrhea and no changes to bowel or bladder Yes all other systems are reviewed and are negative [facility] Past Medical History Source: nursing notes reviewed Medical History Anxiety B12 deficiency Depression Diabetes Hyperlipidemia Migraines Morbid obesity Sciatic leg pain Surgical History H/O thyroidectomy Hx of tubal ligation Family History Family History Father HTN (hypertension) CVD (cardiovascular disease) Diabetes mellitus Mother Diabetes mellitus Uterine cancer COPD (chronic obstructive pulmonary disease) Maternal Grandmother Breast cancer Paternal Aunt Breast cancer Brother No problems noted. Sister No problems noted. Sister No problems noted. Sister No problems noted. Daughter No problems noted. Son No problems noted. Son No problems noted. Son No problems noted. Son No problems noted. Son No problems noted. Son No problems noted. Social History Social History Alcohol intake: never Smoking Status: Current every day smoker Use of substances other than those prescribed or required for medical reasons: No Advance Directives: No Advance Directives Information Provided: Yes Physical Exam Vital Signs: Vital Signs: Last Vital Signs Temp 98.4 F 09/09/20 14:48 Pulse 90 09/09/20 14:48 Resp 16 09/09/20 14:48 BP 167/87 H 09/09/20 14:48 Pulse Ox 96 09/09/20 14:48 Body Mass Index 46.5 General appearance is no acute distress, relaxed and cooperative A&O x3 Head is normocephalic atraumatic The neck is supple The chest is clear to auscultation bilateral The heart no murmur auscultated The abdomen has of l granulated tissue wound on left lower abdomen which is surrounded by localized erythema, there is no fluctuant abscess Extremities no edema, full range of motion x4 Neuro no focal deficit Course Course Course Narrative: Patient was hydrated and her glucose came down to 330 on her own glucometer, there are no ketones in the urine acetone was negative, anion gap was 11 no elevated anion gap, with bicarb was mildly elevated at 32, patient was breathing normally and can take her insulin at home we did not give any insulin here The wound infection is treated with the addition of Bactrim which she says in the past has made her nauseous so I added some Zofran and we advised her to follow up with the Wound Clinic Medical Decision Making Lab Data Lab results reviewed: Yes I reviewed the patient's lab results. Result diagrams: 09/09/20 17:08 09/09/20 17:08 Labs: Lab Results 09/09/20 09/09/20 09/09/20 Range/Units 15:02 17:08 17:08 WBC 8.6 (4.8-10.8) X10*3/uL RBC 5.67 H (4.20-5.50) X10*6/uL Hgb 16.6 H (12.0-16.0) g/dl Hct 49.1 H (37-47) % MCV 86.6 (80-98) fL MCH 29.3 (27.0-33.0) pg MCHC 33.8 (31.0-35.0) g/dl RDW 13.0 (11.0-16.0) % Plt Count 269 (160-400) X10*3/uL MPV 10.4 (9.4-12.3) fL Immature Gran % (Auto) 0.2 (0.0-0.4) % Neut % (Auto) 53.7 (45-73) % Lymph % (Auto) 37.6 (20-40) % Schleicher % (Auto) 5.8 (2-11) % Eos % (Auto) 2.0 (0-4) % Baso % (Auto) 0.7 (0-2) % Lymph # (Auto) 3.2 (1.2-4.9) X10*3/uL Schleicher # (Auto) 0.5 (0.1-1.2) X10*3/uL Eos # (Auto) 0.2 (0.0-0.4) X10*3/uL Baso # (Auto) 0.1 (0.0-0.2) X10*3/uL Abs Immat Gran (auto) 0.02 (0.00-0.03) X10*3/uL Absolute Neuts (auto) 4.6 (2.0-8.3) X10*3/uL Absolute Nucleated RBC 0.000 (0.0-0.012) X10*3/uL Nucleated RBC % (auto) 0.0 (0.0-0.2) /100WBC Sodium 137 (135-145) mmol/L Potassium 4.5 (3.3-5.1) mmol/L Chloride 99 (96-108) mmol/L Carbon Dioxide 32 H (22-29) mmol/L Anion Gap 11 L (12-20) BUN 8 L (9-16) mg/dL Creatinine 0.80 (0.5-1.4) mg/dL Estim Creat Clear Calc 112.9 Estimated GFR > 60 POC Glucose 471 H* (60-115) mg/dL Random Glucose 415 H* (60-115) mg/dL Calcium 8.8 (8.4-10.2) mg/dL Urine Color Urine Appearance Urine pH (5.0-8.0) Ur Specific Briscoe (1.005-1.025) Urine Protein (NEG-TRACE) MG/DL Urine Glucose (UA) (NEG) MG/DL Urine Ketones (NEG) MG/DL Urine Blood (NEG) Urine Nitrite (NEG) Ur Leukocyte Esterase (NEG) Urine RBC (0) /HPF Urine WBC (0-4) /HPF Ur Squamous Epith Cells /LPF Urine Bacteria /LPF Urine Test (NEGATIVE) Acetone, Qual (Negative) 09/09/20 09/09/20 09/09/20 Range/Units 17:08 17:10 17:10 WBC (4.8-10.8) X10*3/uL RBC (4.20-5.50) X10*6/uL Hgb (12.0-16.0) g/dl Hct (37-47) % MCV (80-98) fL MCH (27.0-33.0) pg MCHC (31.0-35.0) g/dl RDW (11.0-16.0) % Plt Count (160-400) X10*3/uL MPV (9.4-12.3) fL Immature Gran % (Auto) (0.0-0.4) % Neut % (Auto) (45-73) % Lymph % (Auto) (20-40) % Schleicher % (Auto) (2-11) % Eos % (Auto) (0-4) % Baso % (Auto) (0-2) % Lymph # (Auto) (1.2-4.9) X10*3/uL Schleicher # (Auto) (0.1-1.2) X10*3/uL Eos # (Auto) (0.0-0.4) X10*3/uL Baso # (Auto) (0.0-0.2) X10*3/uL Abs Immat Gran (auto) (0.00-0.03) X10*3/uL Absolute Neuts (auto) (2.0-8.3) X10*3/uL Absolute Nucleated RBC (0.0-0.012) X10*3/uL Nucleated RBC % (auto) (0.0-0.2) /100WBC Sodium (135-145) mmol/L Potassium (3.3-5.1) mmol/L Chloride (96-108) mmol/L Carbon Dioxide (22-29) mmol/L Anion Gap (12-20) BUN (9-16) mg/dL Creatinine (0.5-1.4) mg/dL Estim Creat Clear Calc Estimated GFR POC Glucose (60-115) mg/dL Random Glucose (60-115) mg/dL Calcium (8.4-10.2) mg/dL Urine Color YELLOW Urine Appearance CLEAR Urine pH 6.5 (5.0-8.0) Ur Specific Briscoe 1.010 (1.005-1.025) Urine Protein NEG (NEG-TRACE) MG/DL Urine Glucose (UA) >=1000 H (NEG) MG/DL Urine Ketones NEG (NEG) MG/DL Urine Blood NEG (NEG) Urine Nitrite NEG (NEG) Ur Leukocyte Esterase NEG (NEG) Urine RBC 0 (0) /HPF Urine WBC 1-4 (0-4) /HPF Ur Squamous Epith Cells 2+ /LPF Urine Bacteria NONE /LPF Urine Test NEGATIVE (NEGATIVE) Acetone, Qual Negative (Negative) Discharge Plan Discharge Clinical Impression: Hyperglycemia Cellulitis Qualifiers: Site of cellulitis: trunk Site of cellulitis of trunk: abdominal wall Qualified Code(s): L03.311 - Cellulitis of abdominal wall Patient Disposition: Home, Self-Care Additional Instructions: We added Bactrim to the antibiotic coverage to have broader coverage You said in the past Bactrim head may do nauseous but not caused any problem with breathing or skin rash so I have added a prescription for Zofran which is a nausea medicine and hopefully it will enable you to take the Bactrim We get are giving you the number of the wound clinic and would be a very good idea to follow as soon as possible with the wound clinic for the wound on her stomach Your sugar was elevated in the emergency room so try to remember to take insuli n as scheduled This wound should be rechecked within 3 days at your doctor or the wound clinic or return to the ER for recheck if they are unavailable Return to emergency room any time any worse condition or any concern, especially for fever, spreading redness, worse pain and swelling, any worse condition or any concerns Prescriptions: New sulfamethoxazole-trimethoprim [Bactrim DS] 800-160 mg tablet 1 tab PO Q12H 7 Days Qty: 14 RF: 0 ondansetron HCl [Zofran] 4 mg tablet 4 mg PO Q6H PRN (Reason: nausea and vomiting) Qty: 10 RF: 0 No Action (DME) FreeStyle Test Strip See Rx Instructions .ROUTE .MEDSUPPLY Qty: 100 RF: 3 gabapentin 800 mg tablet 800 mg PO TID Qty: 84 RF: 6 flash glucose sensor [FreeStyle Abdon 14 Day Sensor] Kit See Rx Instructions miscellaneous Q2W Qty: 1 RF: 6 blood sugar diagnostic [FreeStyle Lite Strips] Strip 1 strip miscellaneous QID 30 Days Qty: 100 RF: 6 fluticasone propionate [Flovent Diskus] 100 mcg/actuation blister with device 1 inh PO BID Qty: 60 RF: 2 insulin lispro [Admelog SoloStar U-100 Insulin] 100 unit/mL insulin pen 20 unit subcut TID Qty: 15 RF: 3 levothyroxine 200 mcg tablet 200 mcg PO DAILY Qty: 90 RF: 3 levothyroxine 50 mcg tablet 50 mcg PO DAILY Qty: 90 RF: 3 ibuprofen 600 mg tablet 600 mg PO Q8H PRN (Reason: pain) Qty: 15 RF: 0 lidocaine [Lidoderm] 5 % adhesive patch,medicated 1 patch topical DAILY Qty: 15 RF: 0 escitalopram oxalate 10 mg tablet 10 mg PO DAILY RF: 0 losartan 25 mg tablet 25 mg PO DAILY RF: 0 (DME) FreeStyle Abdon 14 Day Sensor Kit See Rx Instructions ea topical .MEDSUPPLY Qty: 1 RF: 0 ergocalciferol (vitamin D2) 1,250 mcg (50,000 unit) capsule PO RF: 0 omeprazole 20 mg capsule,delayed release(DR/EC) 20 mg PO DAILY RF: 0 cyanocobalamin (vitamin B-12) 1,000 mcg tablet 1,000 mcg PO DAILY RF: 0 atorvastatin 40 mg tablet 40 mg PO DAILY RF: 0 Tresiba FlexTouch U-200 200 unit/mL (3 mL) insulin pen subcut RF: 0 insulin lispro 100 unit/mL insulin pen subcut RF: 0 (DME) FreeStyle Lite Strips Strip See Rx Instructions strip .ROUTE .MEDSUPPLY Qty: 10 RF: 0 hydroxyzine HCl 25 mg tablet 25 mg PO BID RF: 0 fluocinonide 0.05 % cream topical RF: 0 Basaglar KwikPen U-100 Insulin 100 unit/mL (3 mL) insulin pen 50 unit subcut BEDTIME RF: 0 albuterol sulfate 90 mcg/actuation HFA aerosol inhaler inhalation RF: 0 ofloxacin 0.3 % drops See Rx Instructions ophthalmic (eye) .COMPLEX 14 Days Qty: 10 RF: 0 erythromycin 5 mg/gram (0.5 %) ointment 1 appl ophthalmic (eye) QID 7 Days Qty: 3.5 RF: 0 prednisone 20 mg tablet 20 mg PO .COMPLEX Qty: 18 RF: 0 amoxicillin-pot clavulanate [Augmentin] 875-125 mg tablet 1 tab PO BID Qty: 20 RF: 0 cephalexin 500 mg capsule 500 mg PO QID 7 Days Qty: 28 RF: 0 Referrals: Mabel Patel PA [Physician Biosecurity Officer] - 2 days (Left low abdominal wound, on antibiotics)
[2020-09-09 18:23] VITALS: BP 131/68; PULSE 78; RESP 17; TEMP 36.8; O2SAT 95
== END 2020-09-09 18:39 | disposition home or self-care (01) ==
PROVIDERS: Physician Assistant Medical; Emergency Provider Emergency Medicine; PCP Nurse Practitioner Family
DX: E11.65 Type 2 diabetes mellitus with hyperglycemia (principal); L03.311 Cellulitis of abdominal wall; E78.5 Hyperlipidemia, unspecified; Z79.4 Long term (current) use of insulin; Z79.02 Long term (current) use of antithrombotics/antiplatelets; F17.200 Nicotine dependence, unspecified, uncomplicated
CPT/HCPCS: 36415; 80048; 81001; 81025; 82009; 82947; 85025; 87071; 87077; 87186; 87205; 96360; 99284

== ENCOUNTER 2020-09-13 08:37 | Outpatient (REF) | payer OTHER, SELFPAY ==
[2020-09-13 11:59] LABS: Alanine Aminotransferase 13 U/L (0-31); Albumin Level 3.7 g/dL (3.5-5.0); Alkaline Phosphatase 94 U/L (39-117); Anion Gap 13 (12-20); Aspartate Amino Transferase 19 U/L (5-31); Bilirubin Total 0.5 mg/dL (0.0-1.0); Blood Urea Nitrogen 14 mg/dL (9-16); Calcium 8.9 mg/dL (8.4-10.2); Carbon Dioxide 28 mmol/L (22-29); Chloride 98 mmol/L (96-108); Cholesterol 105 mg/dL; Estimated Glomerular Filt Rate > 60; Glucose Fasting 440 mg/dL (60-99); HDL Cholesterol 43 mg/dL; LDL Cholesterol Calculated 43 mg/dl; Potassium 4.8 mmol/L (3.3-5.1); Sodium 134 mmol/L (135-145); Triglycerides 97 mg/dL
[2020-09-13 12:05] LABS: TSH reflex Free T4 0.02 uIU/mL (0.32-4.0)
[2020-09-13 12:16] LABS: Vitamin B12 689 pg/mL (200-900)
[2020-09-13 12:47] LABS: Free T4 (Free Thyroxine) 1.25 ng/dL (0.71-1.85)
== END 2020-09-13 08:38 | disposition home or self-care (01) ==
LOC: HO.HMGCLDS 08:37
PROVIDERS: PCP Nurse Practitioner Family; Visit Provider Nurse Practitioner Family
DX: E66.01 Morbid (severe) obesity due to excess calories (principal); E53.8 Deficiency of other specified B group vitamins
CPT/HCPCS: 36415; 80053; 80061; 82607; 84439; 84443

== ENCOUNTER 2020-09-28 08:58 | Outpatient (RCR) | payer OTHER, SELFPAY | END 2020-10-20 09:13 | disposition home or self-care (01) | LOC: HO.WCC 08:58 | PROVIDERS: PCP Nurse Practitioner Family; Visit Provider Physician Assistant | DX: E11.622 Type 2 diabetes mellitus with other skin ulcer (principal); L98.492 Non-pressure chronic ulcer of skin of other sites with fat layer exposed; E11.40 Type 2 diabetes mellitus with diabetic neuropathy, unspecified; E11.65 Type 2 diabetes mellitus with hyperglycemia; E65 Localized adiposity; E66.01 Morbid (severe) obesity due to excess calories; I10 Essential (primary) hypertension; Z86.31 Personal history of diabetic foot ulcer; F17.210 Nicotine dependence, cigarettes, uncomplicated; Z71.6 Tobacco abuse counseling; Z91.11 Patient's noncompliance with dietary regimen | CPT/HCPCS: 11042; 97597; 99212 ==

== ENCOUNTER 2020-10-06 16:01 | Outpatient (REF) | payer OTHER, SELFPAY ==
--- NOTE | ~2020-10-06 | XR_ITS ---
EXAMINATION: XR CHEST CLINICAL INFORMATION: Screening for respiratory cervical lordosis COMPARISON: None TECHNIQUE: 2 views of the chest were obtained. FINDINGS: No significant abnormality is noted involving the heart, lungs, mediastinum, bony thorax or soft tissues. XR/XR chest 2V IMPRESSION: Unremarkable chest examination.
== END 2020-10-06 16:02 | disposition home or self-care (01) ==
LOC: HO.HMGCX 16:01
PROVIDERS: PCP Nurse Practitioner Family; Visit Provider Nurse Practitioner Family
DX: Z11.1 Encounter for screening for respiratory tuberculosis (principal)
CPT/HCPCS: 71046

== ENCOUNTER 2020-10-26 09:52 | Outpatient (REF) | payer OTHER, SELFPAY ==
[2020-10-26 13:44] LABS: CT PCR NOT DETECTED (Not Detect.)
[2020-10-26 13:45] LABS: NG PCR NOT DETECTED (Not Detect.)
[2020-10-27 13:44] LABS: BV Int Neg Control Negative (Negative); BV Int Pos Control Positive (Positive)
[2020-10-30 23:07] LABS: HPV 16 RNA NOT DETECTED (NOT DETECTED); HPV mRNA E6/E7 rflx Detected (Not Detected)
== END 2020-10-26 09:53 | disposition home or self-care (01) ==
LOC: HO.LAB 09:52
PROVIDERS: PCP Nurse Practitioner Family; Visit Provider Advanced Practice Midwife
DX: Z01.419 Encounter for gynecological examination (general) (routine) without abnormal findings (principal); N89.8 Other specified noninflammatory disorders of vagina; R63.4 Abnormal weight loss; E11.9 Type 2 diabetes mellitus without complications; E66.01 Morbid (severe) obesity due to excess calories; E78.5 Hyperlipidemia, unspecified; E53.8 Deficiency of other specified B group vitamins; F41.8 Other specified anxiety disorders; F17.200 Nicotine dependence, unspecified, uncomplicated; Z20.2 Contact with and (suspected) exposure to infections with a predominantly sexual mode of transmission; Z68.42 Body mass index [BMI] 45.0-49.9, adult; Z88.1 Allergy status to other antibiotic agents; Z88.2 Allergy status to sulfonamides; Z88.8 Allergy status to other drugs, medicaments and biological substances
CPT/HCPCS: 87480; 87491; 87510; 87591; 87624; 87625; 87660; 88142

== ENCOUNTER → 2020-11-04 11:05 | Outpatient (BNVA) | payer OTHER, SELFPAY | PROVIDERS: PCP Nurse Practitioner Family; Visit Provider Advanced Practice Midwife ==

== ENCOUNTER → 2020-11-22 13:57 | Outpatient (BNVA) | payer OTHER, SELFPAY | PROVIDERS: PCP Nurse Practitioner Family; Referring Provider Nurse Practitioner Family; Visit Provider Surgery | DX: L02.31 Cutaneous abscess of buttock (principal) | CPT/HCPCS: 99202 ==

== ENCOUNTER 2020-12-06 01:46 | Emergency (ER) | payer OTHER, SELFPAY ==
--- NOTE | ~2020-12-06 | CT_ITS ---
EXAMINATION: CT ABDOMEN AND PELVIS WITH CONTRAST CLINICAL INFORMATION: Lower abdominal discomfort. Chills, nausea. Question kidney stones. COMPARISON: 03/21/2020 TECHNIQUE: Multidetector volumetric images were obtained from the superior aspect of the liver through the pubic symphysis following administration 100 mL of Omnipaque 350 intravenous contrast. Sagittal and coronal reformatted images were obtained on the technologist's workstation. Oral contrast: No This CT examination was performed using dose optimization techniques as appropriate, variously including the following: *Automated exposure control *Adjustment of mA and/or kV according to patient size (this includes techniques or standardized protocols for targeted exams where dose is matched to indication/reason for exam; i.e. extremities or head) *Use of iterative reconstruction technique DLP: 1492 mGy-cm FINDINGS: LUNG BASES: The visualized lung bases are unremarkable. LIVER, GALLBLADDER, AND BILIARY TREE: The liver is normal in size and shape with decreased attenuation. No focal hepatic lesion or biliary ductal dilatation is present. The gallbladder is contracted with no evidence of radiopaque gallstones, gallbladder wall thickening, or obvious pericholecystic inflammatory changes. PANCREAS: Unremarkable. SPLEEN: Unremarkable. ADRENAL GLANDS: Unremarkable. KIDNEYS AND URETERS: The kidneys are normal in size, shape, and attenuation. No hydronephrosis, hydroureter, or calculi seen. No perinephric stranding. BLADDER: Unremarkable. GASTROINTESTINAL TRACT: The small and large bowel are unremarkable. The appendix is seen. No inflammatory changes of the cecal region. ABDOMINAL WALL: No significant hernia is appreciated. LYMPH NODES: Normal. VASCULAR: Unremarkable. PELVIC VISCERA: The uterus and adnexa are unremarkable. OSSEOUS STRUCTURES: No acute or suspicious osseous abnormality. Mild degenerative changes of the spine. CT/CT abdomen pelvis w con IMPRESSION: No acute findings in the abdomen or pelvis. Normal appearance of the kidneys. Hepatic steatosis.
[2020-12-06 02:08] VITALS: BP 150/76; PULSE 86; RESP 16; TEMP 36.6; O2SAT 97; BMI 45.0
[2020-12-06 02:26] LABS: Basophils Absolute Auto 0.1 X10*3/uL (0.0-0.2); Basophils Percent Auto 0.8 % (0-2); Eosinophils Absolute Auto 0.3 X10*3/uL (0.0-0.4); Eosinophils Percent Auto 3.1 % (0-4); Hematocrit 45.7 % (37-47); Hemoglobin 15.5 g/dl (12.0-16.0); Imm Gran Abs Auto 0.02 X10*3/uL (0.00-0.03); Imm Gran Pct Auto 0.2 % (0.0-0.4); Lymphocytes Absolute Auto 3.4 X10*3/uL (1.2-4.9); Lymphocytes Percent Auto 33.1 % (20-40); MANUAL DIFF FLAG NO; Mean Corpuscular HGB Conc 33.9 g/dl (31.0-35.0); Mean Corpuscular Hemoglobin 29.9 pg (27.0-33.0); Mean Corpuscular Volume 88.1 fL (80-98); Mean Platelet Volume 10.6 fL (9.4-12.3); Monocytes Absolute Auto 0.7 X10*3/uL (0.1-1.2); Monocytes Percent Auto 6.8 % (2-11); Neutrophils Absolute Auto 5.8 X10*3/uL (2.0-8.3); Platelet Count 214 X10*3/uL (160-400); Red Blood Count 5.19 X10*6/uL (4.20-5.50); Red Cell Distribution Width 13.2 % (11.0-16.0); White Blood Count 10.4 X10*3/uL (4.8-10.8)
[2020-12-06 02:58] LABS: Alanine Aminotransferase 9 U/L (0-31); Albumin Level 3.4 g/dL (3.5-5.0); Alkaline Phosphatase 76 U/L (39-117); Anion Gap 12 (12-20); Aspartate Amino Transferase 26 U/L (5-31); Bilirubin Total 0.4 mg/dL (0.0-1.0); Blood Urea Nitrogen 12 mg/dL (9-16); Carbon Dioxide 27 mmol/L (22-29); Chloride 103 mmol/L (96-108); Creatinine Clr Calc Pharmacy 113.6; Estimated Glomerular Filt Rate > 60; Glucose Random 290 mg/dL (60-115); Lipase 28 U/L (8-78); Potassium 4.1 mmol/L (3.3-5.1); Sodium 138 mmol/L (135-145); Total Protein 6.5 g/dL (6.5-8.0)
[2020-12-06] MEDS: Ketorolac Tromethamine 15 MG/ML VIAL IVPUSH (03:01)
[2020-12-06] MEDS: ondansetron HCL 4 MG/2 ML VIAL IVPUSH (03:02)
[2020-12-06] MEDS: iohexoL 350 MG/ML 100 ML INFUS..BTL IV (03:21)
--- NOTE | 2020-12-06 03:52 | ED_ITS ---
HPI - General Adult General Chief complaint: General Medical Stated complaint: abd pain 2 days, nausea, not eating Time Seen by Provider: 12/06/20 02:12 Source: patient Mode of arrival: ambulatory History of Present Illness HPI narrative: 50-year-old female with multiple medical comorbidities presents with complaints of abdominal discomfort for 3-4 days that is not been associated with fever, chills, diarrhea, but states that she has been having body aches and some mild nausea. She states that the symptoms began after she received the COVID vaccine 3 weeks ago. Otherwise, she denies shortness of breath, chest pain /palpitations, urinary pain / burning/frequency. Related Data Home Medications Medication Instructions Recorded Confirmed atorvastatin 40 mg tablet 40 mg PO DAILY 03/09/20 11/22/20 blood sugar diagnostic #10 ea 03/09/20 11/22/20 cyanocobalamin (vitamin B-12) 1,000 mcg PO DAILY 03/09/20 11/22/20 1,000 mcg tablet ergocalciferol (vitamin D2) 1,250 PO 03/09/20 11/22/20 mcg (50,000 unit) capsule escitalopram oxalate 10 mg tablet 10 mg PO DAILY 03/09/20 11/22/20 flash glucose sensor #1 ea 03/09/20 11/22/20 fluocinonide 0.05 % topical cream applic TOPICAL 03/09/20 11/22/20 hydroxyzine HCl 25 mg tablet 25 mg PO BID 03/09/20 11/22/20 insulin lispro 100 unit/mL unit SUBCUT 03/09/20 11/22/20 subcutaneous pen losartan 25 mg tablet 25 mg PO DAILY 03/09/20 11/22/20 omeprazole 20 mg capsule,delayed 20 mg PO DAILY 03/09/20 11/22/20 release albuterol sulfate 90 mcg/actuation INHALATION 07/14/20 11/22/20 aerosol inhaler escitalopram oxalate 20 mg tablet 20 mg PO DAILY 09/13/20 11/22/20 fluticasone propionate 50 1 spray INTRANASAL DAILY 09/13/20 11/22/20 mcg/actuation nasal spray,suspension insulin glargine 100 unit/mL (3 60 unit SUBCUT BEDTIME ml 09/13/20 11/22/20 mL) subcutaneous pen Previous Rx's Medication Instructions Recorded blood sugar diagnostic #100 ea 03/11/20 ibuprofen 600 mg PO Q8H PRN #15 tab 07/01/20 lidocaine [Lidoderm] 1 patch TOPICAL DAILY #15 ea 07/01/20 blood sugar diagnostic 1 strip MISCELLANEOUS QID 30 Days 07/07/20 #100 strip erythromycin 5 mg/gram (0.5 %) eye 1 appl OPHTHALMIC (EYE) QID 7 Days 07/07/20 ointment #3.5 g ofloxacin 0.3 % eye drops See Rx Instructions OPHTHALMIC 07/14/20 (EYE) .COMPLEX 14 Days #10 ml insulin lispro 100 unit/mL 20 unit SUBCUT TID #15 ml 08/09/20 subcutaneous pen ondansetron HCl [Zofran] 4 mg PO Q6H PRN #10 tab 09/09/20 sulfamethoxazole-trimethoprim 1 tab PO Q12H 7 Days #14 tab 09/09/20 [Bactrim DS] levothyroxine 200 mcg tablet 200 mcg PO DAILY #90 tab 09/13/20 levothyroxine 25 mcg capsule 25 mcg PO DAILY 90 Days #90 cap 09/13/20 insulin degludec 200 unit/mL (3 120 unit SUBCUT DAILY #18 ml 09/28/20 mL) subcutaneous pen clotrimazole-betamethasone 1 1 appl TOPICAL BID PRN 7 Days #45 g 10/26/20 %-0.05 % topical cream fluconazole 150 mg tablet 150 mg PO ONCE PRN 1 Days #1 tab 10/26/20 flash glucose sensor 1 ea TOPICAL Q2W 14 Days #1 ea 10/27/20 gabapentin 800 mg tablet 800 mg PO TID #84 tab 10/27/20 metronidazole 500 mg tablet 500 mg PO BID 7 Days #14 tab 10/28/20 cephalexin 500 mg capsule 500 mg PO QID 7 Days #28 cap 11/11/20 oxycodone-acetaminophen 5 mg-325 1 tab PO Q6H PRN #15 tab 11/11/20 mg tablet oxycodone-acetaminophen 5 mg-325 1 tab PO Q6H PRN #15 tab 11/15/20 mg tablet fluticasone propionate 100 1 inh PO BID #60 ea 11/29/20 mcg/actuation blister powder for inhalation Allergies Allergy/AdvReac Type Severity Reaction Status Date / Time doxycycline [DOXYCYCLINE] Allergy Severe THROAT Verified 11/22/20 13:59 SWELLING clindamycin [CLINDAMYCIN] Allergy Intermediate CHEST PAIN Verified 11/22/20 13:59 Sulfa (Sulfonamide Allergy Unknown makes her Verified 11/22/20 13:59 Antibiotics) sick, vomit trimethoprim [From BACTRIM] Allergy Unknown NAUSEA & Verified 11/22/20 13:59 VOMITING sulfamethoxazole AdvReac Mild NAUSEA & Verified 11/22/20 13:59 [From BACTRIM] VOMITING lisinopril Allergy Unknown headaches Uncoded 11/22/20 13:59 Review of Systems Review of Systems: Pertinent positives and negatives as stated in HPI 10 point review of systems is otherwise negative. [facility] Past Medical History Source: nursing notes reviewed Medical History Anxiety B12 deficiency Depression Diabetes Hyperlipidemia Migraines Morbid obesity Sciatic leg pain Surgical History H/O elbow surgery H/O thyroidectomy Hx of tubal ligation Family History Family History Father HTN (hypertension) CVD (cardiovascular disease) Diabetes mellitus Mother Diabetes mellitus Uterine cancer COPD (chronic obstructive pulmonary disease) Maternal Grandmother Breast cancer Paternal Aunt Breast cancer Brother No problems noted. Sister No problems noted. Sister No problems noted. Sister No problems noted. Daughter No problems noted. Son No problems noted. Son No problems noted. Son No problems noted. Son No problems noted. Son No problems noted. Son No problems noted. Social History Social History Alcohol intake: never Advance Directives: No Advance Directives Information Provided: No Patient : No Physical Exam Vital Signs: Vital Signs: Last Vital Signs Temp 97.9 F 12/06/20 02:08 Pulse 76 12/06/20 04:18 Resp 20 12/06/20 04:18 BP 132/61 12/06/20 04:18 Pulse Ox 93 12/06/20 04:18 Body Mass Index 45.0 VITAL SIGNS: Reviewed. GENERAL: Morbidly obese,Well developed, well nourished, in no acute distress. HEAD: Normocephalic/atraumatic, EYES: PERRLA, EOMI EARS: Ext canals without abnormality, TMs non-bulging and non-erythematous NOSE: Nares patent bilateral OROPHARYNX: no oral lesions noted, posterior pharynx clear NECK: Supple, no adenopathy LUNGS: Normal breath sounds. SpO2<93> CARDIOVASCULAR: Regular rate and rhythm without noted murmurs ABDOMEN: obese, exam limited by body habitus,Soft, mild tenderness on palpation over lower abdomen, non-distended with bowel sounds. SKIN: Inspection of the skin reveals no rashes NEUROLOGIC: Alert and oriented x 4. Strength and sensation to light touch were grossly intact x 4. Course Course Course Narrative: 50-year-old female with history and clinical presentation consistent with possible urinary etiology, and on review of all investigations there are no acute findings and with administration of combination analgesics as well as a GI cocktail and on re-evaluation she had complete resolution of her discomfort and was discharged home in stable condition. Medical Decision Making Lab Data Result diagrams: 12/06/20 02:22 12/06/20 02:22 Labs: Lab Results 12/06/20 12/06/20 Range/Units 02:22 02:22 WBC 10.4 (4.8-10.8) X10*3/uL RBC 5.19 (4.20-5.50) X10*6/uL Hgb 15.5 (12.0-16.0) g/dl Hct 45.7 (37-47) % MCV 88.1 (80-98) fL MCH 29.9 (27.0-33.0) pg MCHC 33.9 (31.0-35.0) g/dl RDW 13.2 (11.0-16.0) % Plt Count 214 (160-400) X10*3/uL MPV 10.6 (9.4-12.3) fL Immature Gran % (Auto) 0.2 (0.0-0.4) % Neut % (Auto) 56.0 (45-73) % Lymph % (Auto) 33.1 (20-40) % [place] % (Auto) 6.8 (2-11) % Eos % (Auto) 3.1 (0-4) % Baso % (Auto) 0.8 (0-2) % Lymph # (Auto) 3.4 (1.2-4.9) X10*3/uL [place] # (Auto) 0.7 (0.1-1.2) X10*3/uL Eos # (Auto) 0.3 (0.0-0.4) X10*3/uL Baso # (Auto) 0.1 (0.0-0.2) X10*3/uL Abs Immat Gran (auto) 0.02 (0.00-0.03) X10*3/uL Absolute Neuts (auto) 5.8 (2.0-8.3) X10*3/uL Absolute Nucleated RBC 0.000 (0.0-0.012) X10*3/uL Nucleated RBC % (auto) 0.0 (0.0-0.2) /100WBC Sodium 138 (135-145) mmol/L Potassium 4.1 (3.3-5.1) mmol/L Chloride 103 (96-108) mmol/L Carbon Dioxide 27 (22-29) mmol/L Anion Gap 12 (12-20) BUN 12 (9-16) mg/dL Creatinine 0.77 (0.5-1.4) mg/dL Estim Creat Clear Calc 113.6 Estimated GFR > 60 Random Glucose 290 H (60-115) mg/dL Calcium 9.0 (8.4-10.2) mg/dL Total Bilirubin 0.4 (0.0-1.0) mg/dL AST 26 (5-31) U/L ALT 9 (0-31) U/L Alkaline Phosphatase 76 (39-117) U/L Total Protein 6.5 (6.5-8.0) g/dL Albumin 3.4 L (3.5-5.0) g/dL Lipase 28 (8-78) U/L Discharge Plan Discharge Clinical Impression: GERD (gastroesophageal reflux disease) Patient Disposition: Home, Self-Care Instructions: Diet for Stomach Ulcers and Gastritis (ED), Gastroesophageal Reflux Disease (ED) Additional Instructions: Follow-up with your primary care provider in 2-3 days for re-evaluation. Return to the ER for any acute worsening of your symptoms. Prescriptions: No Action (DME) FreeStyle Test Strip See Rx Instructions .ROUTE .MEDSUPPLY Qty: 100 RF: 3 blood sugar diagnostic [FreeStyle Lite Strips] Strip 1 strip miscellaneous QID 30 Days Qty: 100 RF: 6 insulin lispro [Admelog SoloStar U-100 Insulin] 100 unit/mL insulin pen 20 unit subcut TID Qty: 15 RF: 3 insulin glargine 100 unit/mL (3 mL) insulin pen 60 unit subcut BEDTIME RF: 0 insulin degludec [Tresiba FlexTouch U-200] 200 unit/mL (3 mL) insulin pen 120 unit subcut DAILY Qty: 18 RF: 3 flash glucose sensor [FreeStyle Abdon 14 Day Sensor] Kit 1 ea topical Q2W 14 Days Qty: 1 RF: 3 gabapentin 800 mg tablet 800 mg PO TID Qty: 84 RF: 3 metronidazole [Flagyl] 500 mg tablet 500 mg PO BID 7 Days Qty: 14 RF: 0 fluticasone propionate [Flovent Diskus] 100 mcg/actuation blister with device 1 inh PO BID Qty: 60 RF: 0 ibuprofen 600 mg tablet 600 mg PO Q8H PRN (Reason: pain) Qty: 15 RF: 0 lidocaine [Lidoderm] 5 % adhesive patch,medicated 1 patch topical DAILY Qty: 15 RF: 0 sulfamethoxazole-trimethoprim [Bactrim DS] 800-160 mg tablet 1 tab PO Q12H 7 Days Qty: 14 RF: 0 ondansetron HCl [Zofran] 4 mg tablet 4 mg PO Q6H PRN (Reason: nausea and vomiting) Qty: 10 RF: 0 escitalopram oxalate 10 mg tablet 10 mg PO DAILY RF: 0 losartan 25 mg tablet 25 mg PO DAILY RF: 0 (DME) FreeStyle Abdon 14 Day Sensor Kit See Rx Instructions ea topical .MEDSUPPLY Qty: 1 RF: 0 ergocalciferol (vitamin D2) 1,250 mcg (50,000 unit) capsule PO RF: 0 omeprazole 20 mg capsule,delayed release(DR/EC) 20 mg PO DAILY RF: 0 cyanocobalamin (vitamin B-12) 1,000 mcg tablet 1,000 mcg PO DAILY RF: 0 atorvastatin 40 mg tablet 40 mg PO DAILY RF: 0 insulin lispro 100 unit/mL insulin pen subcut RF: 0 (DME) FreeStyle Lite Strips Strip See Rx Instructions strip .ROUTE .MEDSUPPLY Qty: 10 RF: 0 hydroxyzine HCl 25 mg tablet 25 mg PO BID RF: 0 fluocinonide 0.05 % cream topical RF: 0 albuterol sulfate 90 mcg/actuation HFA aerosol inhaler inhalation RF: 0 ofloxacin 0.3 % drops See Rx Instructions ophthalmic (eye) .COMPLEX 14 Days Qty: 10 RF: 0 erythromycin 5 mg/gram (0.5 %) ointment 1 appl ophthalmic (eye) QID 7 Days Qty: 3.5 RF: 0 cephalexin 500 mg capsule 500 mg PO QID 7 Days Qty: 28 RF: 0 oxycodone-acetaminophen [Percocet] 5-325 mg tablet 1 tab PO Q6H PRN (Reason: pain) Qty: 15 RF: 0 escitalopram oxalate 20 mg tablet 20 mg PO DAILY RF: 0 fluticasone propionate 50 mcg/actuation spray,suspension 1 spray intranasal DAILY RF: 0 levothyroxine 200 mcg tablet 200 mcg PO DAILY Qty: 90 RF: 3 levothyroxine 25 mcg capsule 25 mcg PO DAILY 90 Days Qty: 90 RF: 3 oxycodone-acetaminophen 5-325 mg tablet 1 tab PO Q6H PRN (Reason: pain) Qty: 15 RF: 0 fluconazole [Diflucan] 150 mg tablet 150 mg PO ONCE PRN (Reason: personal) 1 Days Qty: 1 RF: 1 clotrimazole-betamethasone 1-0.05 % cream 1 appl topical BID PRN (Reason: itching) 7 Days Qty: 45 RF: 1 Referrals: Adarsh Johnson, ENVIRONMENTAL HEALTH MANAGER-[facility] [Primary Care Provider] - 2 days Interventions: ED Discharge Assessment Last Done: 12/06/20 04:25 Discharge Date/Time: 12/06/20 04:33
[2020-12-06 04:18] VITALS: BP 132/61; PULSE 76; RESP 20; O2SAT 93
== END 2020-12-06 04:33 | disposition home or self-care (01) ==
PROVIDERS: Emergency Provider Student in an Organized Health Care Education/Training Program; PCP Nurse Practitioner Family
DX: K21.9 Gastro-esophageal reflux disease without esophagitis (principal); E11.9 Type 2 diabetes mellitus without complications; Z79.4 Long term (current) use of insulin
CPT/HCPCS: 36415; 74177; 80053; 83690; 85025; 96374; 96375; 99284; J1885; J2405; Q9967

== ENCOUNTER 2020-12-08 10:54 | Outpatient (REF) | payer OTHER, SELFPAY ==
[2020-12-09 08:50] LABS: BV Int Neg Control Negative (Negative); BV Int Pos Control Positive (Positive)
== END 2020-12-08 10:55 | disposition home or self-care (01) ==
LOC: HO.LAB 10:54
PROVIDERS: Visit Provider Nurse Practitioner Family
DX: R10.2 Pelvic and perineal pain (principal)
CPT/HCPCS: 87086; 87480; 87510; 87660

== ENCOUNTER 2021-01-14 06:19 | Outpatient (REF) | payer OTHER, SELFPAY ==
[2021-01-14 12:11] LABS: HBc Num1 0.15 S/CO (0.00-0.79); HIV AB/AG Nonreactive (Nonreactive); HIV Num 1 0.06 S/CO (0.00-0.99); Hepatitis B Core Antibody Nonreactive (Nonreactive); ~HepC Num1 0.26 S/CO (0.00-0.79); ~Hepatitis C Antibody Nonreactive (Nonreactive)
[2021-01-14 12:17] LABS: Alanine Aminotransferase 17 U/L (0-31); Albumin Level 3.6 g/dL (3.5-5.0); Alkaline Phosphatase 96 U/L (39-117); Anion Gap 13 (12-20); Aspartate Amino Transferase 25 U/L (5-31); Bilirubin Total 0.4 mg/dL (0.0-1.0); Blood Urea Nitrogen 13 mg/dL (9-16); Calcium 8.8 mg/dL (8.4-10.2); Carbon Dioxide 29 mmol/L (22-29); Chloride 102 mmol/L (96-108); Cholesterol 115 mg/dL; Estimated Glomerular Filt Rate > 60; Glucose Fasting 170 mg/dL (60-99); HDL Cholesterol 47 mg/dL; LDL Cholesterol Calculated 54 mg/dl; Potassium 4.1 mmol/L (3.3-5.1); Sodium 140 mmol/L (135-145); Total Protein 6.9 g/dL (6.5-8.0); Triglycerides 74 mg/dL
[2021-01-14 12:19] LABS: TSH reflex Free T4 59.07 uIU/mL (0.32-4.0)
[2021-01-14 13:01] LABS: Free T4 (Free Thyroxine) 0.46 ng/dL (0.71-1.85)
[2021-01-15 09:34] LABS: Syphilis Screen Nonreactive (Nonreactive)
== END 2021-01-14 06:20 | disposition home or self-care (01) ==
LOC: HO.HMGCLDS 06:19
PROVIDERS: PCP Nurse Practitioner Family; Visit Provider Advanced Practice Midwife
DX: E03.9 Hypothyroidism, unspecified (principal); E11.9 Type 2 diabetes mellitus without complications; Z20.2 Contact with and (suspected) exposure to infections with a predominantly sexual mode of transmission
CPT/HCPCS: 36415; 80053; 80061; 84439; 84443; 86704; 86780; 86803; 87389

== ENCOUNTER 2021-02-08 14:18 | Outpatient (REF) | payer OTHER, SELFPAY | END 2021-02-08 14:19 | disposition home or self-care (01) | LOC: HO.LNP 14:18 | PROVIDERS: Visit Provider Internal Medicine | DX: J06.9 Acute upper respiratory infection, unspecified (principal); Z20.822 Contact with and (suspected) exposure to COVID-19 | CPT/HCPCS: U0003; U0005 ==

== ENCOUNTER 2021-03-18 11:12 | Emergency (ER) | payer OTHER, SELFPAY ==
[2021-03-18 12:00] VITALS: PULSE 85; RESP 20; TEMP 36.7; O2SAT 95; BMI 44.9
--- NOTE | 2021-03-18 13:05 | ED.GENADULT ---
HPI - General Adult General Chief complaint: Back Pain/Injury Stated complaint: leg and hip pain Time Seen by Provider: 03/18/21 13:04 Source: patient Mode of arrival: ambulatory Limitations: no limitations Related Data Home Medications Medication Instructions Recorded Confirmed blood sugar diagnostic #10 ea 03/09/20 01/18/21 flash glucose sensor #1 ea 03/09/20 01/18/21 fluocinonide 0.05 % topical cream applic TOPICAL 03/09/20 01/18/21 losartan 25 mg tablet 25 mg PO DAILY 03/09/20 01/18/21 albuterol sulfate 90 mcg/actuation INHALATION 07/14/20 01/18/21 aerosol inhaler escitalopram oxalate 20 mg tablet 20 mg PO DAILY 09/13/20 01/18/21 doxepin 10 mg capsule 10 - 20 mg PO BEDTIME 01/04/21 01/18/21 insulin degludec 100 unit/mL (3 unit SUBCUT 02/08/21 mL) subcutaneous pen (Tresiba FlexTouch U-100 insulin) levothyroxine 50 mcg tablet 50 mcg PO DAILY 02/08/21 Previous Rx's Medication Instructions Recorded blood sugar diagnostic (FreeStyle #100 ea 03/11/20 Test) ibuprofen 600 mg tablet 600 mg PO Q8H PRN #15 tab 07/01/20 lidocaine 5 % topical patch 1 patch TOPICAL DAILY #15 ea 07/01/20 (Lidoderm) ondansetron HCl 4 mg tablet 4 mg PO Q6H PRN #10 tab 09/09/20 (Zofran) levothyroxine 200 mcg tablet 200 mcg PO DAILY #90 tab 09/13/20 levothyroxine 25 mcg capsule 25 mcg PO DAILY 90 Days #90 cap 09/13/20 clotrimazole-betamethasone 1 1 appl TOPICAL BID PRN 7 Days #45 g 10/26/20 %-0.05 % topical cream flash glucose sensor (FreeStyle 1 ea TOPICAL Q2W 14 Days #1 ea 10/27/20 Abdon 14 Day Sensor) ergocalciferol (vitamin D2) 1,250 1,250 mcg PO QWEEK 90 Days #13 cap 01/13/21 mcg (50,000 unit) capsule insulin degludec 200 unit/mL (3 80 unit SUBCUT DAILY #18 ml 01/18/21 mL) subcutaneous pen (Tresiba FlexTouch U-200 insulin) azithromycin 250 mg tablet See Rx Instructions PO .COMPLEX #6 02/08/21 (Zithromax) tab nebulizer accessories #1 ea 02/09/21 nebulizers #1 ea 02/09/21 prednisone 50 mg tablet 50 mg PO DAILY 7 Days #7 tab 02/10/21 ipratropium 0.5 mg-albuterol 3 mg 3 ml INHALATION Q6-8H PRN #90 ml 02/21/21 (2.5 mg base)/3 mL nebulization soln blood sugar diagnostic (FreeStyle 1 strip MISCELLANEOUS QID 30 Days 03/02/21 Lite Strips) #100 strip cyanocobalamin (vitamin B-12) 1,000 mcg PO DAILY 90 Days #90 tab 03/02/21 1,000 mcg tablet omeprazole 20 mg capsule,delayed 20 mg PO DAILY 90 Days #90 cap 03/02/21 release atorvastatin 40 mg tablet 40 mg PO DAILY 90 Days #90 tab 03/07/21 fluticasone propionate 100 1 inh PO BID #60 ea 03/07/21 mcg/actuation blister powder for inhalation (Flovent Diskus) gabapentin 800 mg tablet 800 mg PO TID #84 tab 03/07/21 insulin lispro 100 unit/mL 20 unit SUBCUT TIDWMEAL 30 Days 03/07/21 subcutaneous pen #18 ml Allergies Allergy/AdvReac Type Severity Reaction Status Date / Time doxycycline [DOXYCYCLINE] Allergy Severe THROAT Verified 03/18/21 12:00 SWELLING clindamycin [CLINDAMYCIN] Allergy Intermediate CHEST PAIN Verified 03/18/21 12:00 Sulfa (Sulfonamide Allergy Unknown makes her Verified 03/18/21 12:00 Antibiotics) sick, vomit trimethoprim [From BACTRIM] Allergy Unknown NAUSEA & Verified 03/18/21 12:00 VOMITING sulfamethoxazole AdvReac Mild NAUSEA & Verified 03/18/21 12:00 [From BACTRIM] VOMITING lisinopril Allergy Unknown headaches Uncoded 11/22/20 13:59 PMFSH Past Medical History Medical History Anxiety B12 deficiency Depression Diabetes Hyperlipidemia Migraines Morbid obesity Sciatic leg pain Surgical History H/O elbow surgery H/O thyroidectomy Hx of tubal ligation Family History Family History (Updated 01/04/21 @ 10:33 by Tahira Bell) Father HTN (hypertension) CVD (cardiovascular disease) Diabetes mellitus Mental health disorder Mother Diabetes mellitus Uterine cancer COPD (chronic obstructive pulmonary disease) Mental health disorder Maternal Grandmother Breast cancer Paternal Aunt Breast cancer Brother No problems noted. Sister Substance use disorder Mental health disorder Sister No problems noted. Sister No problems noted. Daughter No problems noted. Son No problems noted. Son No problems noted. Son No problems noted. Son No problems noted. Son No problems noted. Son No problems noted. Social History Social History Alcohol intake: never Patient Tobacco Use Status: Current everyday Tobacco user Cigarette Packs Per Day: 1 Second Hand Smoke Exposure: Yes Advance Directives: No Advance Directives Information Provided: Yes Patient : No Physical Exam Vital Signs: Vital Signs: Last Vital Signs Temp 98.0 F 03/18/21 12:00 Pulse 85 03/18/21 12:00 Resp 20 03/18/21 12:00 Pulse Ox 95 03/18/21 12:00 Body Mass Index 44.9 Discharge Plan Discharge Prescriptions: No Action (DME) FreeStyle Test Strip See Rx Instructions .ROUTE .MEDSUPPLY Qty: 100 RF: 3 flash glucose sensor [FreeStyle Abdon 14 Day Sensor] Kit 1 ea topical Q2W 14 Days Qty: 1 RF: 3 doxepin 10 mg capsule 10 - 20 mg PO BEDTIME RF: 0 ergocalciferol (vitamin D2) 1,250 mcg (50,000 unit) capsule 1,250 mcg PO QWEEK 90 Days Qty: 13 RF: 3 (DME) nebulizer accessories Misc See Rx Instructions .Route Qty: 1 RF: 0 (DME) nebulizers Misc See Rx Instructions .Route Qty: 1 RF: 0 prednisone 50 mg tablet 50 mg PO DAILY 7 Days Qty: 7 RF: 0 ipratropium-albuterol 0.5 mg-3 mg(2.5 mg base)/3 mL solution for nebulization 3 ml inhalation Q6-8H PRN (Reason: wheezing) Qty: 90 RF: 0 FreeStyle Lite Strips Strip 1 strip miscellaneous QID 30 Days Qty: 100 RF: 6 omeprazole 20 mg capsule,delayed release(DR/EC) 20 mg PO DAILY 90 Days Qty: 90 RF: 0 cyanocobalamin (vitamin B-12) 1,000 mcg tablet 1,000 mcg PO DAILY 90 Days Qty: 90 RF: 0 insulin lispro 100 unit/mL insulin pen 20 unit subcut TIDWMEAL 30 Days Qty: 18 RF: 1 atorvastatin 40 mg tablet 40 mg PO DAILY 90 Days Qty: 90 RF: 0 gabapentin 800 mg tablet 800 mg PO TID Qty: 84 RF: 3 Flovent Diskus 100 mcg/actuation blister with device 1 inh PO BID Qty: 60 RF: 0 ibuprofen 600 mg tablet 600 mg PO Q8H PRN (Reason: pain) Qty: 15 RF: 0 lidocaine [Lidoderm] 5 % adhesive patch,medicated 1 patch topical DAILY Qty: 15 RF: 0 ondansetron HCl [Zofran] 4 mg tablet 4 mg PO Q6H PRN (Reason: nausea and vomiting) Qty: 10 RF: 0 losartan 25 mg tablet 25 mg PO DAILY RF: 0 (DME) FreeStyle Abdon 14 Day Sensor Kit See Rx Instructions ea topical .MEDSUPPLY Qty: 1 RF: 0 (DME) FreeStyle Lite Strips Strip See Rx Instructions strip .ROUTE .MEDSUPPLY Qty: 10 RF: 0 fluocinonide 0.05 % cream topical RF: 0 albuterol sulfate 90 mcg/actuation HFA aerosol inhaler inhalation RF: 0 Tresiba FlexTouch U-200 200 unit/mL (3 mL) insulin pen 80 unit subcut DAILY Qty: 18 RF: 3 Tresiba FlexTouch U-100 100 unit/mL (3 mL) insulin pen subcut RF: 0 levothyroxine 50 mcg tablet 50 mcg PO DAILY RF: 0 azithromycin [Zithromax] 250 mg tablet See Rx Instructions PO .COMPLEX Qty: 6 RF: 0 escitalopram oxalate 20 mg tablet 20 mg PO DAILY RF: 0 levothyroxine 200 mcg tablet 200 mcg PO DAILY Qty: 90 RF: 3 levothyroxine 25 mcg capsule 25 mcg PO DAILY 90 Days Qty: 90 RF: 3 clotrimazole-betamethasone 1-0.05 % cream 1 appl topical BID PRN (Reason: itching) 7 Days Qty: 45 RF: 1
[2021-03-18] MEDS: Ketorolac Tromethamine 15 MG/ML VIAL 30 MG IM (13:30)
--- NOTE | 2021-03-18 14:20 | ED.BACK ---
HPI - Back Pain/Injury General Chief Complaint: Back Pain/Injury Stated Complaint: leg and hip pain Time Seen by Provider: 03/18/21 13:04 Source: patient Mode of arrival: ambulatory History of Present Illness HPI Narrative: 50-year-old female with a PMHx of anxiety, B12 deficiency, depression, diabetes, hyperlipidemia, migraines, obesity to the ED c/o acute on chronic bilateral thigh pain, right-sided low back pain radiating to right hip, and myalgias. Reports symptoms have been going on x6 months or longer. Takes Gabapentin at home without relief. Reports was supposed to see Neurology outpatient however has been unable to get appointment, requesting pain medication. Reports diffuse paresthesias/numbness. Denies fever, chills, known injury/trauma or fall, new urinary incontinence/retention Related Data Home Medications Medication Instructions Recorded Confirmed blood sugar diagnostic #10 ea 03/09/20 01/18/21 flash glucose sensor #1 ea 03/09/20 01/18/21 fluocinonide 0.05 % topical cream applic TOPICAL 03/09/20 01/18/21 losartan 25 mg tablet 25 mg PO DAILY 03/09/20 01/18/21 albuterol sulfate 90 mcg/actuation INHALATION 07/14/20 01/18/21 aerosol inhaler escitalopram oxalate 20 mg tablet 20 mg PO DAILY 09/13/20 01/18/21 doxepin 10 mg capsule 10 - 20 mg PO BEDTIME 01/04/21 01/18/21 insulin degludec 100 unit/mL (3 unit SUBCUT 02/08/21 mL) subcutaneous pen (Tresiba FlexTouch U-100 insulin) levothyroxine 50 mcg tablet 50 mcg PO DAILY 02/08/21 Previous Rx's Medication Instructions Recorded blood sugar diagnostic (FreeStyle #100 ea 03/11/20 Test) ibuprofen 600 mg tablet 600 mg PO Q8H PRN #15 tab 07/01/20 lidocaine 5 % topical patch 1 patch TOPICAL DAILY #15 ea 07/01/20 (Lidoderm) ondansetron HCl 4 mg tablet 4 mg PO Q6H PRN #10 tab 09/09/20 (Zofran) levothyroxine 200 mcg tablet 200 mcg PO DAILY #90 tab 09/13/20 levothyroxine 25 mcg capsule 25 mcg PO DAILY 90 Days #90 cap 09/13/20 clotrimazole-betamethasone 1 1 appl TOPICAL BID PRN 7 Days #45 g 10/26/20 %-0.05 % topical cream flash glucose sensor (FreeStyle 1 ea TOPICAL Q2W 14 Days #1 ea 10/27/20 Abdon 14 Day Sensor) ergocalciferol (vitamin D2) 1,250 1,250 mcg PO QWEEK 90 Days #13 cap 01/13/21 mcg (50,000 unit) capsule insulin degludec 200 unit/mL (3 80 unit SUBCUT DAILY #18 ml 01/18/21 mL) subcutaneous pen (Tresiba FlexTouch U-200 insulin) azithromycin 250 mg tablet See Rx Instructions PO .COMPLEX #6 02/08/21 (Zithromax) tab nebulizer accessories #1 ea 02/09/21 nebulizers #1 ea 02/09/21 prednisone 50 mg tablet 50 mg PO DAILY 7 Days #7 tab 02/10/21 ipratropium 0.5 mg-albuterol 3 mg 3 ml INHALATION Q6-8H PRN #90 ml 02/21/21 (2.5 mg base)/3 mL nebulization soln blood sugar diagnostic (FreeStyle 1 strip MISCELLANEOUS QID 30 Days 03/02/21 Lite Strips) #100 strip cyanocobalamin (vitamin B-12) 1,000 mcg PO DAILY 90 Days #90 tab 03/02/21 1,000 mcg tablet omeprazole 20 mg capsule,delayed 20 mg PO DAILY 90 Days #90 cap 03/02/21 release atorvastatin 40 mg tablet 40 mg PO DAILY 90 Days #90 tab 03/07/21 fluticasone propionate 100 1 inh PO BID #60 ea 03/07/21 mcg/actuation blister powder for inhalation (Flovent Diskus) gabapentin 800 mg tablet 800 mg PO TID #84 tab 03/07/21 insulin lispro 100 unit/mL 20 unit SUBCUT TIDWMEAL 30 Days 03/07/21 subcutaneous pen #18 ml acetaminophen 500 mg tablet 500 mg PO Q6H PRN #20 tab 03/18/21 (Tylenol Extra Strength) cyclobenzaprine 5 mg tablet 5 mg PO Q8H PRN 5 Days #14 tab 03/18/21 naproxen 500 mg tablet 500 mg PO BID PRN 10 Days #20 tab 03/18/21 Allergies Allergy/AdvReac Type Severity Reaction Status Date / Time doxycycline [DOXYCYCLINE] Allergy Severe THROAT Verified 03/18/21 12:00 SWELLING clindamycin [CLINDAMYCIN] Allergy Intermediate CHEST PAIN Verified 03/18/21 12:00 Sulfa (Sulfonamide Allergy Unknown makes her Verified 03/18/21 12:00 Antibiotics) sick, vomit trimethoprim [From BACTRIM] Allergy Unknown NAUSEA & Verified 03/18/21 12:00 VOMITING sulfamethoxazole AdvReac Mild NAUSEA & Verified 03/18/21 12:00 [From BACTRIM] VOMITING lisinopril Allergy Unknown headaches Uncoded 11/22/20 13:59 Review of Systems Review of Systems: Constitutional: No Fever, No Chills ENT/Mouth: No Ear Pain, No Nasal Congestion, No Sinus Pain, No sore throat, No Rhinorrhea, No Swallowing Difficulty Cardiovascular: No Chest Pain, No SOB Respiratory: No Cough, No Wheezing Gastrointestinal: No Nausea, No Vomiting, No Diarrhea, No Constipation, No Abdominal pain Genitourinary: No Dysuria, No Urinary Frequency, No Hematuria, No Urinary Incontinence/retention, No Flank Pain Musculoskeletal: + joint pain, + Myalgias, No Joint Swelling Skin: No Skin Lesions, No rash Neuro: No Weakness, +Numbness, + Paresthesias Yes all other systems are reviewed and are negative Neurologic: Denies Sensory deficit (Neuro) [facility] Past Medical History Attestation statement: The following information was validated with the patient. Medical History Anxiety B12 deficiency Depression Diabetes Hyperlipidemia Migraines Morbid obesity Sciatic leg pain Surgical History H/O elbow surgery H/O thyroidectomy Hx of tubal ligation Family History Family History (Updated 01/04/21 @ 10:33 by Tahira Bell) Father HTN (hypertension) CVD (cardiovascular disease) Diabetes mellitus Mental health disorder Mother Diabetes mellitus Uterine cancer COPD (chronic obstructive pulmonary disease) Mental health disorder Maternal Grandmother Breast cancer Paternal Aunt Breast cancer Brother No problems noted. Sister Substance use disorder Mental health disorder Sister No problems noted. Sister No problems noted. Daughter No problems noted. Son No problems noted. Son No problems noted. Son No problems noted. Son No problems noted. Son No problems noted. Son No problems noted. Social History Social History Alcohol intake: never Patient Tobacco Use Status: Current everyday Tobacco user Cigarette Packs Per Day: 1 Second Hand Smoke Exposure: Yes Advance Directives: No Advance Directives Information Provided: Yes Patient : No Physical Exam Vital Signs: Vital Signs: Last Vital Signs Temp 98.0 F 03/18/21 12:00 Pulse 85 03/18/21 12:00 Resp 20 03/18/21 12:00 Pulse Ox 95 03/18/21 12:00 Body Mass Index 44.9 Const: General: cooperative, healthy appearing and no acute distress Orientation/consciousness: patient oriented x3 Limitations: no limitations HENMT: Head: Yes normal to inspection Ears: hearing grossly normal bilaterally General nose exam: Normal external nose present Face and sinus: Yes normal facial exam Eyes: General: appearance normal, both eyes and all related structures EOM: EOMs intact bilaterally Neck: Neck: Yes normal visual inspection and Yes no meningeal signs Resp: Effort & Inspection: normal respiratory effort and no respiratory distress Cardio: Rate: regular rate Peripheral pulses: dorsalis pedis present GI: Inspection: Yes normal to inspection Palpation (GI): Soft to palpation, nontender, no guarding and not rigid Back/Spine/Pelvis: Other: No midline cervical, thoracic, or lumbar spinous tenderness to palpation. + right-sided paraspinal MSK tenderness to palpation Skin: Rashes: no rashes Wounds: no wounds Neuro: Other: No saddle anesthesia General: patient oriented x3, gait normal, tone normal, moves all extremities, no meningeal signs and no focal motor deficits Cognition (Neuro): normal cognition Gait exam (Neuro): Normal gait present Sensory Exam: No Sensory deficit (Neuro) Extrem: Other: Diffuse myalgias/MSK tenderness to palpation General: Yes normal to inspection MDM - Back Pain/Injury MDM Narrative Medical decision making narrative: 50-year-old female with a PMHx of anxiety, B12 deficiency, depression, diabetes, hyperlipidemia, migraines, obesity to the ED c/o acute on chronic bilateral thigh pain, right-sided low back pain radiating to right hip, and myalgias. On exam VSS, NAD/well-appearing, physical exam as above, no midline spinous tenderness throughout, no red flag symptoms, no saddle anesthesia. Ambulating with steady gait. Concern for MSK pain/sciatica. Low concern for cauda equina, cord compression, demyelinating process. Patient also reports tested negative recently for COVID-19. Discussed with patient she needs to follow-up with PCP/neurology as previously recommended, will refer her. Plan: IM Toradol injection, Flexeril, PCP/neurology follow-up Medical Records Attestation: I reviewed the patient's medical records. Lab Data Attestation: I reviewed the patient's lab results. Discharge Plan Discharge Clinical Impression: Myalgia Patient Disposition: Home, Self-Care Instructions: Musculoskeletal Pain (ED) Additional Instructions: Cyclobenzaprine is a muscle relaxer, take at night as it makes you drowsy, do not drive, drink alcohol, or operate machinery while taking Naproxen as an anti-inflammatory/pain medication, take with food Tylenol in addition will help Please follow-up with her primary care doctor as well as Neurology If your symptoms persist or worsen please return to the ED Prescriptions: New acetaminophen [Tylenol Extra Strength] 500 mg tablet 500 mg PO Q6H PRN (Reason: pain or fever) Qty: 20 RF: 0 naproxen 500 mg tablet 500 mg PO BID PRN (Reason: pain) 10 Days Qty: 20 RF: 0 cyclobenzaprine 5 mg tablet 5 mg PO Q8H PRN (Reason: pain (scale score 7-10)) 5 Days Qty: 14 RF: 0 No Action (DME) FreeStyle Test Strip See Rx Instructions .ROUTE .MEDSUPPLY Qty: 100 RF: 3 flash glucose sensor [FreeStyle Abdon 14 Day Sensor] Kit 1 ea topical Q2W 14 Days Qty: 1 RF: 3 doxepin 10 mg capsule 10 - 20 mg PO BEDTIME RF: 0 ergocalciferol (vitamin D2) 1,250 mcg (50,000 unit) capsule 1,250 mcg PO QWEEK 90 Days Qty: 13 RF: 3 (DME) nebulizer accessories Misc See Rx Instructions .Route Qty: 1 RF: 0 (DME) nebulizers Misc See Rx Instructions .Route Qty: 1 RF: 0 prednisone 50 mg tablet 50 mg PO DAILY 7 Days Qty: 7 RF: 0 ipratropium-albuterol 0.5 mg-3 mg(2.5 mg base)/3 mL solution for nebulization 3 ml inhalation Q6-8H PRN (Reason: wheezing) Qty: 90 RF: 0 FreeStyle Lite Strips Strip 1 strip miscellaneous QID 30 Days Qty: 100 RF: 6 omeprazole 20 mg capsule,delayed release(DR/EC) 20 mg PO DAILY 90 Days Qty: 90 RF: 0 cyanocobalamin (vitamin B-12) 1,000 mcg tablet 1,000 mcg PO DAILY 90 Days Qty: 90 RF: 0 insulin lispro 100 unit/mL insulin pen 20 unit subcut TIDWMEAL 30 Days Qty: 18 RF: 1 atorvastatin 40 mg tablet 40 mg PO DAILY 90 Days Qty: 90 RF: 0 gabapentin 800 mg tablet 800 mg PO TID Qty: 84 RF: 3 Flovent Diskus 100 mcg/actuation blister with device 1 inh PO BID Qty: 60 RF: 0 ibuprofen 600 mg tablet 600 mg PO Q8H PRN (Reason: pain) Qty: 15 RF: 0 lidocaine [Lidoderm] 5 % adhesive patch,medicated 1 patch topical DAILY Qty: 15 RF: 0 ondansetron HCl [Zofran] 4 mg tablet 4 mg PO Q6H PRN (Reason: nausea and vomiting) Qty: 10 RF: 0 losartan 25 mg tablet 25 mg PO DAILY RF: 0 (DME) FreeStyle Abdon 14 Day Sensor Kit See Rx Instructions ea topical .MEDSUPPLY Qty: 1 RF: 0 (DME) FreeStyle Lite Strips Strip See Rx Instructions strip .ROUTE .MEDSUPPLY Qty: 10 RF: 0 fluocinonide 0.05 % cream topical RF: 0 albuterol sulfate 90 mcg/actuation HFA aerosol inhaler inhalation RF: 0 Tresiba FlexTouch U-200 200 unit/mL (3 mL) insulin pen 80 unit subcut DAILY Qty: 18 RF: 3 Tresiba FlexTouch U-100 100 unit/mL (3 mL) insulin pen subcut RF: 0 levothyroxine 50 mcg tablet 50 mcg PO DAILY RF: 0 azithromycin [Zithromax] 250 mg tablet See Rx Instructions PO .COMPLEX Qty: 6 RF: 0 escitalopram oxalate 20 mg tablet 20 mg PO DAILY RF: 0 levothyroxine 200 mcg tablet 200 mcg PO DAILY Qty: 90 RF: 3 levothyroxine 25 mcg capsule 25 mcg PO DAILY 90 Days Qty: 90 RF: 3 clotrimazole-betamethasone 1-0.05 % cream 1 appl topical BID PRN (Reason: itching) 7 Days Qty: 45 RF: 1 Referrals: Adarsh Johnson FNP- [Primary Care Provider] - 2 days Earline Butcher MD [Physician] - 5 days Interventions: ED Discharge Assessment Last Done: 03/18/21 14:45 Discharge Date/Time: 03/18/21 14:47
[2021-03-18] MEDS: Cyclobenzaprine HCl 10 MG TABLET PO (14:37)
== END 2021-03-18 14:47 | disposition home or self-care (01) ==
PROVIDERS: Emergency Provider Emergency Medicine; PCP Nurse Practitioner Family
DX: M79.10 Myalgia, unspecified site (principal); E53.8 Deficiency of other specified B group vitamins; F17.210 Nicotine dependence, cigarettes, uncomplicated; Z71.6 Tobacco abuse counseling; Z79.899 Other long term (current) drug therapy; Z79.4 Long term (current) use of insulin
CPT/HCPCS: 96372; 99283; 99284; J1885

== ENCOUNTER 2021-04-18 09:22 | Outpatient (REF) | payer OTHER, SELFPAY ==
[2021-04-18 12:12] LABS: Estimated Average Glucose 352 mg/dL; Hemoglobin A1c % 13.9 %
[2021-04-18 12:34] LABS: TSH reflex Free T4 0.11 uIU/mL (0.32-4.0)
[2021-04-18 12:45] LABS: Creatinine Urine 40.85 mg/dL; Microalbum/Creatinine Ratio Ur 90.5 ug/mg cr
[2021-04-18 13:19] LABS: Free T4 (Free Thyroxine) 1.02 ng/dL (0.71-1.85)
== END 2021-04-18 09:23 | disposition home or self-care (01) ==
LOC: HO.HMGCLDS 09:22
PROVIDERS: PCP Nurse Practitioner Family; Visit Provider Nurse Practitioner Family
DX: E11.65 Type 2 diabetes mellitus with hyperglycemia (principal); E03.9 Hypothyroidism, unspecified; R79.89 Other specified abnormal findings of blood chemistry
CPT/HCPCS: 36415; 82043; 83036; 84439; 84443

== ENCOUNTER 2021-06-01 22:52 | Emergency (ER) | payer OTHER, SELFPAY ==
--- NOTE | ~2021-06-01 | CT_ITS ---
EXAMINATION: CT ABDOMEN AND PELVIS WITH CONTRAST CLINICAL INFORMATION: Right lower quadrant abdomen pain COMPARISON: 12/06/2020 TECHNIQUE: Multidetector volumetric images were obtained from the superior aspect of the liver through the pubic symphysis following administration 100 mL of Omnipaque 350 intravenous contrast. Sagittal and coronal reformatted images were obtained on the technologist's workstation. Oral contrast: No This CT examination was performed using dose optimization techniques as appropriate, variously including the following: *Automated exposure control *Adjustment of mA and/or kV according to patient size (this includes techniques or standardized protocols for targeted exams where dose is matched to indication/reason for exam; i.e. extremities or head) *Use of iterative reconstruction technique DLP: 1494 mGy-cm FINDINGS: LUNG BASES: The visualized lung bases are unremarkable. LIVER, GALLBLADDER, AND BILIARY TREE: There is hypoattenuation of the liver suspicious for steatosis. No biliary ductal dilatation. Gallbladder appears somewhat contracted. PANCREAS: Unremarkable. SPLEEN: Unremarkable. ADRENAL GLANDS: Unremarkable. KIDNEYS AND URETERS: The kidneys have a lobulated contour. No hydronephrosis or obstructing calculus identified. BLADDER: Unremarkable. GASTROINTESTINAL TRACT: No evidence of bowel obstruction or significant wall thickening. The appendix appears mostly collapsed. No free fluid or free air is seen. ABDOMINAL WALL: No significant hernia is appreciated. LYMPH NODES: Normal. VASCULAR: Unremarkable. PELVIC VISCERA: Unremarkable. OSSEOUS STRUCTURES: Scattered degenerative changes are present in the spine. CT/CT abdomen pelvis w con IMPRESSION: No acute findings identified in the abdomen/pelvis. Fleischner guidelines were followed.
[2021-06-01 23:07] VITALS: BP 146/63; BP 190/100; PULSE 88; RESP 22; TEMP 36.6; O2SAT 98; BMI 46.9
--- NOTE | 2021-06-01 23:09 | ED_ITS ---
HPI - Abdominal Pain General Chief Complaint: Abdominal Pain <Harriet Boswell NP - Last Filed: 06/02/21 03:11> Stated Complaint: Abdominal pain <Harriet Boswell NP - Last Filed: 06/02/21 03:11> Time Seen by Provider: 06/02/21 03:29 <Harriet Boswell NP - Last Filed: 06/02/21 03:11> Source: patient and EMS <Harriet Boswell NP - Last Filed: 06/02/21 03:11> Mode of arrival: EMS <Harriet Boswell NP - Last Filed: 06/02/21 03:11> Limitations: no limitations <Harriet Boswell NP - Last Filed: 06/02/21 03:11> History of Present Illness HPI narrative: 50-year-old female presents via EMS for sudden onset of right lower quadrant abdominal pain. Has been experiencing pain for less than an hour. <Harriet Boswell NP - Last Filed: 06/02/21 03:11> MD elicited complaint: abdominal pain <Harriet Boswell NP - Last Filed: 06/02/21 03:11> Pertinent past history: diverticulitis and kidney stones <Harriet Boswell NP - Last Filed: 06/02/21 03:11> Onset (ago): hour(s) (Within the hour of arrival) <Harriet Boswell NP - Last Filed: 06/02/21 03:11> Pain Consistency: constant <Harriet Boswell NP - Last Filed: 06/02/21 03:11> Location: RLQ <Harriet Boswell NP - Last Filed: 06/02/21 03:11> Severity: severe <Harriet Boswell NP - Last Filed: 06/02/21 03:11> Pain scale (0-10): 10 <Harriet Boswell NP - Last Filed: 06/02/21 03:11> Quality: cramping and stabbing <Harriet Boswell NP - Last Filed: 06/02/21 03:11> Radiation: suprapubic <Harriet Boswell NP - Last Filed: 06/02/21 03:11> Migration to: no migration <Harriet Boswell NP - Last Filed: 06/02/21 03:11> Exacerbating factors: movement <Harriet Boswell NP - Last Filed: 06/02/21 03:11> Relieving factors: nothing <Harriet Boswell NP - Last Filed: 06/02/21 03:11> Associated symptoms: denies other symptoms <Harriet Boswell NP - Last Filed: 06/02/21 03:11> Related Data Home Medications: Home Medications Medication Instructions Recorded Confirmed blood sugar diagnostic #10 ea 03/09/20 04/19/21 flash glucose sensor #1 ea 03/09/20 04/19/21 escitalopram oxalate 20 mg tablet 20 mg PO DAILY 09/13/20 04/19/21 doxepin 10 mg capsule 10 - 20 mg PO BEDTIME 01/04/21 04/19/21 insulin degludec 100 unit/mL (3 unit SUBCUT 02/08/21 04/19/21 mL) subcutaneous pen (Tresiba FlexTouch U-100 insulin) Previous Rx's Medication Instructions Recorded blood sugar diagnostic (FreeStyle #100 ea 03/11/20 Test) levothyroxine 200 mcg tablet 200 mcg PO DAILY #90 tab 09/13/20 flash glucose sensor (FreeStyle 1 ea TOPICAL Q2W 14 Days #1 ea 10/27/20 Abdon 14 Day Sensor) ergocalciferol (vitamin D2) 1,250 1,250 mcg PO QWEEK 90 Days #13 cap 01/13/21 mcg (50,000 unit) capsule insulin degludec 200 unit/mL (3 80 unit (0.4 mL) SUBCUT DAILY #18 01/18/21 mL) subcutaneous pen (Tresiba ml FlexTouch U-200 insulin) nebulizer accessories #1 ea 02/09/21 nebulizers #1 ea 02/09/21 blood sugar diagnostic (FreeStyle 1 strip MISCELLANEOUS QID 30 Days 03/02/21 Lite Strips) #100 strip gabapentin 800 mg tablet 800 mg PO TID #84 tab 03/07/21 insulin lispro 100 unit/mL 20 unit (0.2 mL) SUBCUT TIDWMEAL 03/07/21 subcutaneous pen 30 Days #18 ml acetaminophen 500 mg tablet 500 mg PO Q6H PRN #20 tab 03/18/21 (Tylenol Extra Strength) naproxen 500 mg tablet 500 mg PO BID PRN 10 Days #20 tab 03/18/21 losartan 50 mg tablet 50 mg PO DAILY 90 Days #90 tab 04/19/21 albuterol sulfate 90 mcg/actuation 2 inh INHALATION Q8H PRN 30 Days 05/12/21 aerosol inhaler #8.5 g fluticasone propionate 110 1 puff INHALATION Q12H #12 g 05/12/21 mcg/actuation HFA aerosol inhaler (Flovent HFA) ipratropium 0.5 mg-albuterol 3 mg 3 ml INHALATION Q6-8H PRN #90 ml 05/12/21 (2.5 mg base)/3 mL nebulization soln atorvastatin 40 mg tablet 40 mg PO DAILY 90 Days #90 tab 05/31/21 cyanocobalamin (vitamin B-12) 1,000 mcg PO DAILY 90 Days #90 tab 05/31/21 1,000 mcg tablet fluticasone propionate 100 1 inh PO BID #60 ea 05/31/21 mcg/actuation blister powder for inhalation (Flovent Diskus) omeprazole 20 mg capsule,delayed 20 mg PO DAILY 90 Days #90 cap 05/31/21 release <Harriet Boswell NP - Last Filed: 06/02/21 03:11> Allergies/Adverse Reactions: Allergies Allergy/AdvReac Type Severity Reaction Status Date / Time doxycycline [DOXYCYCLINE] Allergy Severe THROAT Verified 05/24/21 14:46 SWELLING clindamycin [CLINDAMYCIN] Allergy Intermediate CHEST PAIN Verified 05/24/21 14:46 Sulfa (Sulfonamide Allergy Unknown makes her Verified 05/24/21 14:46 Antibiotics) sick, vomit trimethoprim [From BACTRIM] Allergy Unknown NAUSEA & Verified 05/24/21 14:46 VOMITING sulfamethoxazole AdvReac Mild NAUSEA & Verified 05/24/21 14:46 [From BACTRIM] VOMITING lisinopril Allergy Unknown headaches Uncoded 04/19/21 12:38 <Harriet Boswell NP - Last Filed: 06/02/21 03:11> Review of Systems Review of Systems Constitutional: No Weight loss, No Fever, No Chills, No Night Sweats, No Fatigue, No Malaise ENT/Mouth: No Hearing loss, No Ear Pain, No Nasal Congestion, No Sinus Pain, No Hoarseness, No sore throat, No Rhinorrhea, No Swallowing Difficulty Eyes: No Eye Pain, No Swelling, No Redness, No Foreign Body, No Discharge, No Vision Changes Cardiovascular: No Chest Pain, No SOB, No Dyspnea on Exertion, No Orthopnea, No Edema, No Palpitations Respiratory: No Cough, No Sputum, No Wheezing, No Smoke Exposure, No Dyspnea Gastrointestinal: No Nausea, no Vomiting, no Diarrhea, positive abdominal Pain, No Hematochezia, No Melena Genitourinary: no irregular bleeding, No Dysuria, No Urinary Frequency, No Hematuria, No Urinary Incontinence, No Urgency, No Flank Pain, No Urinary Flow Changes, No Hesitancy Musculoskeletal: No joint pain, No Myalgias, No Joint Swelling Skin: No Skin Lesions, No rash Neuro: No Weakness, No Numbness, No Paresthesias, No Loss of Consciousness, No Dizziness, No Headache Psych: No Anxiety/Panic, No Depression, No SI/HI/AH/VH, No Social Issues Heme/Lymph: No Bruising, No Bleeding,No Lymphadenopathy Endocrine: No Polyuria, No Polydipsia, No Temperature Intolerance <Harriet Boswell NP - Last Filed: 06/02/21 03:11> Yes all other systems are reviewed and are negative <Harriet Boswell NP - Last Filed: 06/02/21 03:11> Physical Exam Vital Signs: Vital Signs: Last Vital Signs Temp 97.9 F 06/02/21 03:00 Pulse 71 06/02/21 03:00 Resp 16 06/02/21 03:00 BP 122/64 06/02/21 03:00 Pulse Ox 95 06/02/21 03:00 BMI result Body Mass Index 46.9 <Harriet Boswell NP - Last Filed: 06/02/21 03:11> Vital Signs: Last Vital Signs Temp 97.9 F 06/02/21 03:00 Pulse 71 06/02/21 03:00 Resp 16 06/02/21 03:00 BP 122/64 06/02/21 03:00 Pulse Ox 95 06/02/21 03:00 BMI result Body Mass Index 46.9 <Jn Herrera MD - Last Filed: 06/02/21 04:33> Appearance: Alert. Oriented X3. Moderate distress. Eyes: Pupils equal, round and reactive to light. Sclera nonicteric. ENT: Pharynx normal. Moist mucous membranes. Neck: Normal inspection. Neck supple. CVS: Normal heart rate and rhythm. Pulses normal. Respiratory: No respiratory distress. Breath sounds normal. Abdomen: Soft and tender to right lower quadrant. Morbidly obese. No rigidity or distention noted. Skin: Skin warm and dry. Normal skin color. Normal skin turgor. Yeast like rash under abdominal folds. Extremities: No lower extremity edema. Moves all extremities against resistance. Neuro: No motor deficit. No sensory deficit. Cranial nerves 2-12 intact. <Harriet Boswell NP - Last Filed: 06/02/21 03:11> Course Course Course Narrative: 50-year-old female presents via EMS for sudden onset of right lower abdominal pain. Prior history of diverticulitis, kidney stones, tubal ligation. No prior history of ectopic . Physical exam positive for right lower quadrant tenderness without rigidity or distention. No rebound tenderness. Patient states that she takes excessive amounts of Aleve on a daily basis. Has not taken any Aleve for approximately 2 days because she had run out. Does not report any hematochezia or melena. Patient does have an elevated blood pressure. Will order labs, CT of abdomen pelvis. Patient is afebrile, appears nontoxic, even unlabored respirations, speaking in complete sentences. Lab values unremarkable with the exception of her glucose at 244. 3:10 a.[address]. sign out to Dr. Herrera. CT scan abdomen pelvis pending. <Harriet Boswell NP - Last Filed: 06/02/21 03:11> MDM - Abdominal Pain [facility] Narrative Medical decision making narrative: Patient with complaint of abdominal pain, has a somewhat exaggerated response to light touch on exam, has no objective findings on workup including labs and CT <Jn Herrera MD - Last Filed: 06/02/21 04:33> Differential Diagnosis Differential diagnosis: Likely abdominal pain, acute appendicitis, calculus of kidney and diverticulitis <Harriet Boswell NP - Last Filed: 06/02/21 03:11> Medical Records Attestation: I reviewed the patient's medical records. <Harriet Boswell NP - Last Filed: 06/02/21 03:11> Lab Data Attestation: I reviewed the patient's lab results. <Harriet Boswell NP - Last Filed: 06/02/21 03:11> Result diagrams: : 06/01/21 23:41 06/01/21 23:41 <Harriet Boswell NP - Last Filed: 06/02/21 03:11> Labs: Lab Results 06/01/21 06/01/21 Range/Units 23:41 23:41 WBC 9.9 (4.8-10.8) X10*3/uL RBC 4.91 (4.20-5.50) X10*6/uL Hgb 14.6 (12.0-16.0) g/dl Hct 43.3 (37.0-47.0) % MCV 88.2 (80.0-98.0) fL MCH 29.7 (27.0-33.0) pg MCHC 33.7 (31.0-35.0) g/dl RDW 12.7 (11.0-16.0) % Plt Count 213 (160-400) X10*3/uL MPV 10.3 (9.4-12.3) fL Immature Gran % (Auto) 0.2 (0.0-0.4) % Neut % (Auto) 58.2 (45-73) % Lymph % (Auto) 31.5 (20-40) % [place] % (Auto) 6.9 (2-11) % Eos % (Auto) 2.5 (0-4) % Baso % (Auto) 0.7 (0-2) % Lymph # (Auto) 3.1 (1.2-4.9) X10*3/uL [place] # (Auto) 0.7 (0.1-1.2) X10*3/uL Eos # (Auto) 0.3 (0.0-0.4) X10*3/uL Baso # (Auto) 0.1 (0.0-0.2) X10*3/uL Abs Immat Gran (auto) 0.02 (0.00-0.03) X10*3/uL Absolute Neuts (auto) 5.7 (2.0-8.3) x10*3/uL Absolute Nucleated RBC 0.000 (0.0-0.012) X10*3/uL Nucleated RBC % (auto) 0.0 (0.0-0.2) /100WBC Sodium 136 (135-145) mmol/L Potassium 4.5 (3.3-5.1) mmol/L Chloride 102 (96-108) mmol/L Carbon Dioxide 27 (22-29) mmol/L Anion Gap 12 (12-20) BUN 13 (9-16) mg/dL Creatinine 0.71 (0.5-1.4) mg/dL Estim Creat Clear Calc 126.3 Estimated GFR > 60 Random Glucose 244 H (60-115) mg/dL Calcium 9.6 D (8.4-10.2) mg/dL <Harriet Boswell NP - Last Filed: 06/02/21 03:11> Lab Results 06/01/21 06/01/21 Range/Units 23:41 23:41 WBC 9.9 (4.8-10.8) X10*3/uL RBC 4.91 (4.20-5.50) X10*6/uL Hgb 14.6 (12.0-16.0) g/dl Hct 43.3 (37.0-47.0) % MCV 88.2 (80.0-98.0) fL MCH 29.7 (27.0-33.0) pg MCHC 33.7 (31.0-35.0) g/dl RDW 12.7 (11.0-16.0) % Plt Count 213 (160-400) X10*3/uL MPV 10.3 (9.4-12.3) fL Immature Gran % (Auto) 0.2 (0.0-0.4) % Neut % (Auto) 58.2 (45-73) % Lymph % (Auto) 31.5 (20-40) % [place] % (Auto) 6.9 (2-11) % Eos % (Auto) 2.5 (0-4) % Baso % (Auto) 0.7 (0-2) % Lymph # (Auto) 3.1 (1.2-4.9) X10*3/uL [place] # (Auto) 0.7 (0.1-1.2) X10*3/uL Eos # (Auto) 0.3 (0.0-0.4) X10*3/uL Baso # (Auto) 0.1 (0.0-0.2) X10*3/uL Abs Immat Gran (auto) 0.02 (0.00-0.03) X10*3/uL Absolute Neuts (auto) 5.7 (2.0-8.3) x10*3/uL Absolute Nucleated RBC 0.000 (0.0-0.012) X10*3/uL Nucleated RBC % (auto) 0.0 (0.0-0.2) /100WBC Sodium 136 (135-145) mmol/L Potassium 4.5 (3.3-5.1) mmol/L Chloride 102 (96-108) mmol/L Carbon Dioxide 27 (22-29) mmol/L Anion Gap 12 (12-20) BUN 13 (9-16) mg/dL Creatinine 0.71 (0.5-1.4) mg/dL Estim Creat Clear Calc 126.3 Estimated GFR > 60 Random Glucose 244 H (60-115) mg/dL Calcium 9.6 D (8.4-10.2) mg/dL <Jn Herrera MD - Last Filed: 06/02/21 04:33> Imaging Data CT abdomen pelvis: Radiologist's impression: no acute findings identified in the abdomen/pelvis.? <Jn Herrera MD - Last Filed: 06/02/21 04:33> Discharge Plan Discharge Clinical Impression: Abdominal pain <Harriet Boswell NP - Last Filed: 06/02/21 03:11> Patient Disposition: Home, Self-Care <Harriet Boswell NP - Last Filed: 06/02/21 03:11> Instructions: Abdominal Pain (ED) <Harriet Boswell NP - Last Filed: 06/02/21 03:11> Additional Instructions: Follow-up with your primary care physician use acetaminophen for pain. Return for any new or worsened symptoms. <Harriet Boswell NP - Last Filed: 06/02/21 03:11> Prescriptions: No Action (DME) FreeStyle Test Strip See Rx Instructions .ROUTE .MEDSUPPLY Qty: 100 RF: 3 flash glucose sensor [FreeStyle Abdon 14 Day Sensor] Kit 1 ea topical Q2W 14 Days Qty: 1 RF: 3 doxepin 10 mg capsule 10 - 20 mg PO BEDTIME RF: 0 ergocalciferol (vitamin D2) 1,250 mcg (50,000 unit) capsule 1,250 mcg PO QWEEK 90 Days Qty: 13 RF: 3 (DME) nebulizer accessories Misc See Rx Instructions .Route Qty: 1 RF: 0 (DME) nebulizers Misc See Rx Instructions .Route Qty: 1 RF: 0 FreeStyle Lite Strips Strip 1 strip miscellaneous QID 30 Days Qty: 100 RF: 6 insulin lispro 100 unit/mL insulin pen 20 unit subcut TIDWMEAL 30 Days Qty: 18 RF: 1 gabapentin 800 mg tablet 800 mg PO TID Qty: 84 RF: 3 albuterol sulfate 90 mcg/actuation HFA aerosol inhaler 2 inh inhalation Q8H PRN (Reason: shortness of breath or wheezing) 30 Days Qty: 8.5 RF: 2 ipratropium-albuterol 0.5 mg-3 mg(2.5 mg base)/3 mL solution for nebulization 3 ml inhalation Q6-8H PRN (Reason: wheezing) Qty: 90 RF: 0 Flovent HFA 110 mcg/actuation HFA aerosol inhaler 1 puff inhalation Q12H Qty: 12 RF: 4 atorvastatin 40 mg tablet 40 mg PO DAILY 90 Days Qty: 90 RF: 0 omeprazole 20 mg capsule,delayed release(DR/EC) 20 mg PO DAILY 90 Days Qty: 90 RF: 0 cyanocobalamin (vitamin B-12) 1,000 mcg tablet 1,000 mcg PO DAILY 90 Days Qty: 90 RF: 0 Flovent Diskus 100 mcg/actuation blister with device 1 inh PO BID Qty: 60 RF: 0 acetaminophen [Tylenol Extra Strength] 500 mg tablet 500 mg PO Q6H PRN (Reason: pain or fever) Qty: 20 RF: 0 naproxen 500 mg tablet 500 mg PO BID PRN (Reason: pain) 10 Days Qty: 20 RF: 0 (DME) FreeStyle Abdon 14 Day Sensor Kit See Rx Instructions ea topical .MEDSUPPLY Qty: 1 RF: 0 (DME) FreeStyle Lite Strips Strip See Rx Instructions strip .ROUTE .MEDSUPPLY Qty: 10 RF: 0 Tresiba FlexTouch U-200 200 unit/mL (3 mL) insulin pen 80 unit subcut DAILY Qty: 18 RF: 3 losartan 50 mg tablet 50 mg PO DAILY 90 Days Qty: 90 RF: 0 Tresiba FlexTouch U-100 100 unit/mL (3 mL) insulin pen subcut RF: 0 escitalopram oxalate 20 mg tablet 20 mg PO DAILY RF: 0 levothyroxine 200 mcg tablet 200 mcg PO DAILY Qty: 90 RF: 3 <Harriet Boswell NP - Last Filed: 06/02/21 03:11> [facility] Past Medical History Attestation statement: The following information was validated with the patient. <Harriet Boswell NP - Last Filed: 06/02/21 03:11> Source: old records reviewed <Harriet Boswell NP - Last Filed: 06/02/21 03:11> Medical History: Medical History Anxiety B12 deficiency Depression Diabetes Hyperlipidemia Migraines Morbid obesity Sciatic leg pain <Harriet Boswell NP - Last Filed: 06/02/21 03:11> Surgical History: Surgical History H/O elbow surgery H/O thyroidectomy Hx of tubal ligation <Harriet Boswell NP - Last Filed: 06/02/21 03:11> Family History Family History: Family History Father HTN (hypertension) CVD (cardiovascular disease) Diabetes mellitus Mental health disorder Mother Diabetes mellitus Uterine cancer COPD (chronic obstructive pulmonary disease) Mental health disorder Maternal Grandmother Breast cancer Paternal Aunt Breast cancer Brother No problems noted. Sister Substance use disorder Mental health disorder Sister No problems noted. Sister No problems noted. Daughter No problems noted. Son No problems noted. Son No problems noted. Son No problems noted. Son No problems noted. Son No problems noted. Son No problems noted. <Harriet Boswell NP - Last Filed: 06/02/21 03:11> Social History Social History: Social History Housing: Apartment Alcohol intake: never Patient Tobacco Use Status: Current everyday Tobacco user Cigarette Packs Per Day: 1 e-Cigarette/Vaping Use: Never Used Second Hand Smoke Exposure: Yes Advance Directives: No Advance Directives Information Provided: Yes Current occupational status: employed Current occupation: [employer] <Harriet Boswell NP - Last Filed: 06/02/21 03:11>
[2021-06-01] MEDS: Ketorolac Tromethamine 30 MG/ML VIAL IVPUSH (23:41)
[2021-06-01 23:46] LABS: MANUAL DIFF FLAG NO
[2021-06-01 23:47] LABS: Basophils Absolute Auto 0.1 X10*3/uL (0.0-0.2); Basophils Percent Auto 0.7 % (0-2); Eosinophils Absolute Auto 0.3 X10*3/uL (0.0-0.4); Eosinophils Percent Auto 2.5 % (0-4); Hematocrit 43.3 % (37.0-47.0); Hemoglobin 14.6 g/dl (12.0-16.0); Imm Gran Abs Auto 0.02 X10*3/uL (0.00-0.03); Imm Gran Pct Auto 0.2 % (0.0-0.4); Lymphocytes Absolute Auto 3.1 X10*3/uL (1.2-4.9); Lymphocytes Percent Auto 31.5 % (20-40); Mean Corpuscular HGB Conc 33.7 g/dl (31.0-35.0); Mean Corpuscular Hemoglobin 29.7 pg (27.0-33.0); Mean Corpuscular Volume 88.2 fL (80.0-98.0); Mean Platelet Volume 10.3 fL (9.4-12.3); Monocytes Absolute Auto 0.7 X10*3/uL (0.1-1.2); Monocytes Percent Auto 6.9 % (2-11); Neutrophils Absolute Auto 5.7 x10*3/uL (2.0-8.3); Neutrophils Percent Auto 58.2 % (45-73); Platelet Count 213 X10*3/uL (160-400); Red Blood Count 4.91 X10*6/uL (4.20-5.50); Red Cell Distribution Width 12.7 % (11.0-16.0); White Blood Count 9.9 X10*3/uL (4.8-10.8)
[2021-06-02 00:25] VITALS: BP 116/45; PULSE 97; RESP 20; O2SAT 98
[2021-06-02 00:55] LABS: Anion Gap 12 (12-20); Blood Urea Nitrogen 13 mg/dL (9-16); Calcium 9.6 mg/dL (8.4-10.2); Carbon Dioxide 27 mmol/L (22-29); Chloride 102 mmol/L (96-108); Creatinine Clr Calc Pharmacy 126.3; Estimated Glomerular Filt Rate > 60; Glucose Random 244 mg/dL (60-115); Potassium 4.5 mmol/L (3.3-5.1); Sodium 136 mmol/L (135-145)
[2021-06-02] MEDS: iohexoL 350 MG/ML 100 ML INFUS..BTL IV (02:02)
[2021-06-02 03:00] VITALS: BP 122/64; PULSE 71; RESP 16; TEMP 36.6; O2SAT 95
== END 2021-06-02 04:35 | disposition home or self-care (01) ==
PROVIDERS: Nurse Practitioner Family; Emergency Provider Emergency Medicine
DX: R10.9 Unspecified abdominal pain (principal); I10 Essential (primary) hypertension; E11.9 Type 2 diabetes mellitus without complications; E78.5 Hyperlipidemia, unspecified; E66.01 Morbid (severe) obesity due to excess calories; F17.200 Nicotine dependence, unspecified, uncomplicated; Z79.4 Long term (current) use of insulin; Z79.02 Long term (current) use of antithrombotics/antiplatelets; Z79.899 Other long term (current) drug therapy
CPT/HCPCS: 36415; 74177; 80048; 85025; 96374; 99284; J1885; Q9967

== ENCOUNTER 2021-07-13 10:34 | Outpatient (REF) | payer OTHER, SELFPAY ==
--- NOTE | 2021-07-13 10:37 | EMG_ITS ---
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 Normal EMG of the right L4-S1 innervated muscles. MD ANATOLIY Posadas/VERONIQUE / [id number]
== END 2021-07-13 10:35 | disposition home or self-care (01) ==
LOC: HO.NEURO 10:34
PROVIDERS: PCP Nurse Practitioner Family; Visit Provider Nurse Practitioner Family
DX: R29.898 Other symptoms and signs involving the musculoskeletal system (principal); M79.605 Pain in left leg; M79.604 Pain in right leg
CPT/HCPCS: 95886; 95911

== ENCOUNTER 2021-07-18 15:07 | Outpatient (REF) | payer OTHER, SELFPAY ==
--- NOTE | ~2021-07-18 | XR_ITS ---
EXAMINATION: XR CHEST CLINICAL INFORMATION: Acute bronchitis COMPARISON: Previous chest x-ray most recent October 2020 TECHNIQUE: 2 views of the chest were obtained. FINDINGS: The cardiac and mediastinal contours are stable. The lungs are clear. There is no pleural effusion or pneumothorax. There are degenerative changes of the spine. XR/XR chest 2V IMPRESSION: No evidence for acute disease in the chest.
== END 2021-07-18 15:08 | disposition home or self-care (01) ==
LOC: HO.HMGCX 15:07
PROVIDERS: Visit Provider Internal Medicine
DX: J02.9 Acute pharyngitis, unspecified (principal)
CPT/HCPCS: 71046

== ENCOUNTER 2021-07-20 18:11 | Emergency (ER) | payer OTHER, SELFPAY ==
--- NOTE | ~2021-07-20 | XR_ITS ---
EXAMINATION: PORTABLE CHEST 1 VIEW CLINICAL INFORMATION: chest pain . COMPARISON: 07/18/2021. TECHNIQUE: Portable frontal view of the chest was obtained. FINDINGS: The lungs are well expanded. No focal infiltrate, effusion, edema, or pneumothorax. Cardiac and mediastinal silhouettes are within normal limits for technique. No acute bony abnormality seen. XR/XR chest 1V IMPRESSION: No evidence of acute disease.
[2021-07-20 18:51] VITALS: BP 155/83; PULSE 98; RESP 18; TEMP 36.9; O2SAT 96; BMI 43.5
--- NOTE | 2021-07-20 18:55 | ECG_ITS ---
Test Reason : cp Blood Pressure : / mmHG Vent. Rate : 095 BPM Atrial Rate : 095 BPM P-R Int : 166 ms QRS Dur : 078 ms QT Int : 360 ms P-R-T Axes : 054 -06 050 degrees QTc Int : 452 ms Normal sinus rhythm Inferior infarct , age undetermined Anterior infarct , age undetermined Abnormal ECG When compared with ECG of 30-JAN-2020 14:53, Anterior infarct is now Present Inferior infarct is now Present Referred By: Generic ED Physician Electronically Signed By:ERICH HESS MD
[2021-07-20 19:47] LABS: Basophils Absolute Auto 0.1 X10*3/uL (0.0-0.2); Basophils Percent Auto 0.7 % (0-2); Eosinophils Absolute Auto 0.2 X10*3/uL (0.0-0.4); Eosinophils Percent Auto 2.3 % (0-4); Hematocrit 44.5 % (37.0-47.0); Hemoglobin 15.4 g/dl (12.0-16.0); Imm Gran Abs Auto 0.02 X10*3/uL (0.00-0.03); Imm Gran Pct Auto 0.2 % (0.0-0.4); Lymphocytes Absolute Auto 3.1 X10*3/uL (1.2-4.9); Lymphocytes Percent Auto 31.9 % (20-40); Mean Corpuscular HGB Conc 34.6 g/dl (31.0-35.0); Mean Corpuscular Volume 86.7 fL (80.0-98.0); Mean Platelet Volume 10.5 fL (9.4-12.3); Monocytes Absolute Auto 0.7 X10*3/uL (0.1-1.2); Neutrophils Absolute Auto 5.6 x10*3/uL (2.0-8.3); Neutrophils Percent Auto 57.9 % (45-73); Platelet Count 241 X10*3/uL (160-400); Red Blood Count 5.13 X10*6/uL (4.20-5.50); Red Cell Distribution Width 12.5 % (11.0-16.0); White Blood Count 9.7 X10*3/uL (4.8-10.8)
[2021-07-20 19:48] LABS: Troponin-I High Sensitivity < 3.5 ng/L (<3.5-17.0)
[2021-07-20 20:03] LABS: Anion Gap 11 (12-20); Blood Urea Nitrogen 9 mg/dL (9-16); Calcium 9.5 mg/dL (8.4-10.2); Carbon Dioxide 31 mmol/L (22-29); Chloride 97 mmol/L (96-108); Creatinine Clr Calc Pharmacy 86.2; Estimated Glomerular Filt Rate 56; Glucose Random 645 mg/dL (60-115); Potassium 4.7 mmol/L (3.3-5.1); Sodium 134 mmol/L (135-145)
[2021-07-20 20:05] LABS: MANUAL DIFF FLAG NO
--- NOTE | 2021-07-20 20:25 | ED_ITS ---
HPI - Chest Pain General Chief Complaint: Chest Pain Stated Complaint: chest and rib pain,ear ache Time Seen by Provider: 07/20/21 20:25 Source: patient Mode of arrival: ambulatory Limitations: no limitations History of Present Illness HPI narrative: Patient is smoker with history of recurrent bronchitis history of diabetes and hypertension noncompliant to insulin and has not taken her insulin for last 2 days been coughing for last 3 4 days seen at urgent care 2 days ago chest x-ray was negative started on Z-Atul complaining of pain on the left side of the chest specially when she takes a deep breath and coughs no fever no chills patient did COVID testing at home x 2 , both negative cough is mostly dry occasionally she has mucopurulent phlegm leg swelling or pain Related Data Home Medications Medication Instructions Recorded Confirmed blood sugar diagnostic #10 ea 03/09/20 04/19/21 flash glucose sensor #1 ea 03/09/20 04/19/21 escitalopram oxalate 20 mg tablet 20 mg PO DAILY 09/13/20 04/19/21 doxepin 10 mg capsule 10 - 20 mg PO BEDTIME 01/04/21 04/19/21 insulin degludec 100 unit/mL (3 unit SUBCUT 02/08/21 04/19/21 mL) subcutaneous pen (Tresiba FlexTouch U-100 insulin) Previous Rx's Medication Instructions Recorded blood sugar diagnostic (FreeStyle #100 ea 03/11/20 Test) levothyroxine 200 mcg tablet 200 mcg PO DAILY #90 tab 09/13/20 flash glucose sensor (FreeStyle 1 ea TOPICAL Q2W 14 Days #1 ea 10/27/20 Abdon 14 Day Sensor) ergocalciferol (vitamin D2) 1,250 1,250 mcg PO QWEEK 90 Days #13 cap 01/13/21 mcg (50,000 unit) capsule insulin degludec 200 unit/mL (3 80 unit (0.4 mL) SUBCUT DAILY #18 01/18/21 mL) subcutaneous pen (Tresiba ml FlexTouch U-200 insulin) nebulizer accessories #1 ea 02/09/21 nebulizers #1 ea 02/09/21 blood sugar diagnostic (FreeStyle 1 strip MISCELLANEOUS QID 30 Days 03/02/21 Lite Strips) #100 strip acetaminophen 500 mg tablet 500 mg PO Q6H PRN #20 tab 03/18/21 (Tylenol Extra Strength) naproxen 500 mg tablet 500 mg PO BID PRN 10 Days #20 tab 03/18/21 fluticasone propionate 110 1 puff INHALATION Q12H #12 g 05/12/21 mcg/actuation HFA aerosol inhaler (Flovent HFA) ipratropium 0.5 mg-albuterol 3 mg 3 ml INHALATION Q6-8H PRN #90 ml 05/12/21 (2.5 mg base)/3 mL nebulization soln atorvastatin 40 mg tablet 40 mg PO DAILY 90 Days #90 tab 05/31/21 cyanocobalamin (vitamin B-12) 1,000 mcg PO DAILY 90 Days #90 tab 05/31/21 1,000 mcg tablet omeprazole 20 mg capsule,delayed 20 mg PO DAILY 90 Days #90 cap 05/31/21 release fluticasone propionate 100 1 inh PO BID #60 ea 07/05/21 mcg/actuation blister powder for inhalation (Flovent Diskus) insulin lispro 100 unit/mL 20 unit (0.2 mL) SUBCUT TIDWMEAL 07/05/21 subcutaneous pen 30 Days #18 ml gabapentin 800 mg tablet 800 mg PO TID #84 tab 07/06/21 azithromycin 250 mg tablet See Rx Instructions PO .COMPLEX #6 07/18/21 tab losartan 50 mg tablet 50 mg PO DAILY #90 tab 07/18/21 albuterol sulfate 90 mcg/actuation 2 inh INHALATION Q8H PRN 30 Days 07/20/21 aerosol inhaler #8.5 g cefpodoxime 200 mg tablet 200 mg PO BID #20 tab 07/20/21 codeine 10 mg-guaifenesin 100 mg/5 10 ml PO Q6H PRN #237 ml 07/20/21 mL oral liquid prednisone 20 mg tablet 40 mg PO DAILY #10 tab 07/20/21 Allergies Allergy/AdvReac Type Severity Reaction Status Date / Time doxycycline [DOXYCYCLINE] Allergy Severe THROAT Verified 07/18/21 14:49 SWELLING clindamycin [CLINDAMYCIN] Allergy Intermediate CHEST PAIN Verified 07/18/21 14:49 Sulfa (Sulfonamide Allergy Unknown makes her Verified 07/18/21 14:49 Antibiotics) sick, vomit trimethoprim [From BACTRIM] Allergy Unknown NAUSEA & Verified 07/18/21 14:49 VOMITING sulfamethoxazole AdvReac Mild NAUSEA & Verified 07/18/21 14:49 [From BACTRIM] VOMITING lisinopril Allergy Unknown headaches Uncoded 07/18/21 14:49 [facility], [facility] Past Medical History Medical History Anxiety B12 deficiency Depression Diabetes Hyperlipidemia Migraines Morbid obesity Sciatic leg pain Surgical History H/O elbow surgery H/O thyroidectomy Hx of tubal ligation Family History Family History Father HTN (hypertension) CVD (cardiovascular disease) Diabetes mellitus Mental health disorder Mother Diabetes mellitus Uterine cancer COPD (chronic obstructive pulmonary disease) Mental health disorder Maternal Grandmother Breast cancer Paternal Aunt Breast cancer Brother No problems noted. Sister Substance use disorder Mental health disorder Sister No problems noted. Sister No problems noted. Daughter No problems noted. Son No problems noted. Son No problems noted. Son No problems noted. Son No problems noted. Son No problems noted. Son No problems noted. Social History Social History Housing: Apartment Alcohol intake: never Patient Tobacco Use Status: Current everyday Tobacco user Cigarette Packs Per Day: 1 e-Cigarette/Vaping Use: Never Used Second Hand Smoke Exposure: Yes Advance Directives: No Advance Directives Information Provided: Yes Current occupational status: employed Current occupation: [employer] Physical Exam Vital Signs: Vital Signs: Last Vital Signs Temp 98.4 F 07/20/21 18:51 Pulse 94 07/20/21 23:07 Resp 19 07/20/21 23:07 BP 145/79 H 07/20/21 23:07 Pulse Ox 97 07/20/21 23:07 BMI result Body Mass Index 43.5 Appearance: Alert. Oriented X3. No acute distress. Eyes: No pallor icterus ENT: Pharynx normal. Oral Mucosa moist Neck: Normal inspection. Neck supple. CVS: Normal heart rate and rhythm. Pulses normal. Respiratory: Frequent cough with deep inspiration Equal air entry bilateral, bilateral wheezing and rhonchi no crackles Abdomen: Soft and nontender. Bowel sounds are present, no mass palpable, no CVA tenderness Skin: Skin warm and dry. Normal skin color. Normal skin turgor. Extremities: No lower extremity edema. No calf tenderness Neuro: Oriented X 3. MDM - Chest Pain MDM Narrative Medical decision making narrative: Patient with left-sided chest pain which increases on deep inspiration with cough with history of bronchitis already on Zithromax EKG without any ischemic changes high sensitive troponin negative D-dimer negative chest x-ray also without infiltrate. Patient felt better after nebulizing treatment. Symptoms likely from pleurisy and bronchitis will discharge patient home on cefpodoxime prednisone and cough syrup patient had elevated blood sugar secondary to not taking her insulin for last 2 days patient will be taking her insulin tonight when she reaches home POC improved after IV hydration and insulin Lab Data Attestation: I reviewed the patient's lab results. Result diagrams: 07/20/21 19:38 07/20/21 19:13 Labs: Lab Results 07/20/21 07/20/21 07/20/21 Range/Units 19:13 19:13 19:38 WBC 9.7 (4.8-10.8) X10*3/uL RBC 5.13 (4.20-5.50) X10*6/uL Hgb 15.4 (12.0-16.0) g/dl Hct 44.5 (37.0-47.0) % MCV 86.7 (80.0-98.0) fL MCH 30.0 (27.0-33.0) pg MCHC 34.6 (31.0-35.0) g/dl RDW 12.5 (11.0-16.0) % Plt Count 241 (160-400) X10*3/uL MPV 10.5 (9.4-12.3) fL Immature Gran % (Auto) 0.2 (0.0-0.4) % Neut % (Auto) 57.9 (45-73) % Lymph % (Auto) 31.9 (20-40) % Brooks % (Auto) 7.0 (2-11) % Eos % (Auto) 2.3 (0-4) % Baso % (Auto) 0.7 (0-2) % Lymph # (Auto) 3.1 (1.2-4.9) X10*3/uL Brooks # (Auto) 0.7 (0.1-1.2) X10*3/uL Eos # (Auto) 0.2 (0.0-0.4) X10*3/uL Baso # (Auto) 0.1 (0.0-0.2) X10*3/uL Abs Immat Gran (auto) 0.02 (0.00-0.03) X10*3/uL Absolute Neuts (auto) 5.6 (2.0-8.3) x10*3/uL Absolute Nucleated RBC 0.000 (0.0-0.012) X10*3/uL Nucleated RBC % (auto) 0.0 (0.0-0.2) /100WBC D-Dimer High Sensitivty NG/ML Sodium 134 L (135-145) mmol/L Potassium 4.7 (3.3-5.1) mmol/L Chloride 97 (96-108) mmol/L Carbon Dioxide 31 H (22-29) mmol/L Anion Gap 11 L (12-20) BUN 9 (9-16) mg/dL Creatinine 1.03 (0.5-1.4) mg/dL Estim Creat Clear Calc 86.2 Estimated GFR 56 POC Glucose (60-115) mg/dL Random Glucose 645 H* D (60-115) mg/dL Calcium 9.5 (8.4-10.2) mg/dL Troponin I High Sens < 3.5 (<3.5-17.0) ng/L COVID-19 ([facility]) (Negative) COVID-19 Clin Com 07/20/21 07/20/21 07/20/21 Range/Units 20:13 20:37 21:29 WBC (4.8-10.8) X10*3/uL RBC (4.20-5.50) X10*6/uL Hgb (12.0-16.0) g/dl Hct (37.0-47.0) % MCV (80.0-98.0) fL MCH (27.0-33.0) pg MCHC (31.0-35.0) g/dl RDW (11.0-16.0) % Plt Count (160-400) X10*3/uL MPV (9.4-12.3) fL Immature Gran % (Auto) (0.0-0.4) % Neut % (Auto) (45-73) % Lymph % (Auto) (20-40) % Brooks % (Auto) (2-11) % Eos % (Auto) (0-4) % Baso % (Auto) (0-2) % Lymph # (Auto) (1.2-4.9) X10*3/uL Brooks # (Auto) (0.1-1.2) X10*3/uL Eos # (Auto) (0.0-0.4) X10*3/uL Baso # (Auto) (0.0-0.2) X10*3/uL Abs Immat Gran (auto) (0.00-0.03) X10*3/uL Absolute Neuts (auto) (2.0-8.3) x10*3/uL Absolute Nucleated RBC (0.0-0.012) X10*3/uL Nucleated RBC % (auto) (0.0-0.2) /100WBC D-Dimer High Sensitivty 186 NG/ML Sodium (135-145) mmol/L Potassium (3.3-5.1) mmol/L Chloride (96-108) mmol/L Carbon Dioxide (22-29) mmol/L Anion Gap (12-20) BUN (9-16) mg/dL Creatinine (0.5-1.4) mg/dL Estim Creat Clear Calc Estimated GFR POC Glucose 498 H* (60-115) mg/dL Random Glucose (60-115) mg/dL Calcium (8.4-10.2) mg/dL Troponin I High Sens (<3.5-17.0) ng/L COVID-19 ([facility]ILDA) Negative (Negative) COVID-19 Clin Com See Note 07/20/21 Range/Units 22:22 WBC (4.8-10.8) X10*3/uL RBC (4.20-5.50) X10*6/uL Hgb (12.0-16.0) g/dl Hct (37.0-47.0) % MCV (80.0-98.0) fL MCH (27.0-33.0) pg MCHC (31.0-35.0) g/dl RDW (11.0-16.0) % Plt Count (160-400) X10*3/uL MPV (9.4-12.3) fL Immature Gran % (Auto) (0.0-0.4) % Neut % (Auto) (45-73) % Lymph % (Auto) (20-40) % Brooks % (Auto) (2-11) % Eos % (Auto) (0-4) % Baso % (Auto) (0-2) % Lymph # (Auto) (1.2-4.9) X10*3/uL Brooks # (Auto) (0.1-1.2) X10*3/uL Eos # (Auto) (0.0-0.4) X10*3/uL Baso # (Auto) (0.0-0.2) X10*3/uL Abs Immat Gran (auto) (0.00-0.03) X10*3/uL Absolute Neuts (auto) (2.0-8.3) x10*3/uL Absolute Nucleated RBC (0.0-0.012) X10*3/uL Nucleated RBC % (auto) (0.0-0.2) /100WBC D-Dimer High Sensitivty NG/ML Sodium (135-145) mmol/L Potassium (3.3-5.1) mmol/L Chloride (96-108) mmol/L Carbon Dioxide (22-29) mmol/L Anion Gap (12-20) BUN (9-16) mg/dL Creatinine (0.5-1.4) mg/dL Estim Creat Clear Calc Estimated GFR POC Glucose 469 H* (60-115) mg/dL Random Glucose (60-115) mg/dL Calcium (8.4-10.2) mg/dL Troponin I High Sens (<3.5-17.0) ng/L COVID-19 ([facility]) (Negative) COVID-19 Clin Com Discharge Plan Discharge Clinical Impression: Acute bronchitis, Pleurisy, Uncontrolled diabetes mellitus Patient Disposition: Home, Self-Care Instructions: Pleurisy (ED), Acute Bronchitis (ED), Diabetic Hyperglycemia (ED) Additional Instructions: Stop smoking Take the nebulizing treatment every 4-6 hours Cough syrup as advised Prednisone and antibiotic as advised Follow-up with your PCP if not better Continue Zithromax Your blood sugar may go high after taking prednisone increase the dose of Humalog 30 units 3 times a day while taking prednisone Take your insulin tonight Prescriptions: New cefpodoxime 200 mg tablet 200 mg PO BID Qty: 20 0RF Rx Instructions: must administer with a meal/food codeine-guaifenesin 10-100 mg/5 mL liquid 10 ml PO Q6H PRN (Reason: cough) Qty: 237 0RF prednisone 20 mg tablet 40 mg PO DAILY Qty: 10 0RF No Action (DME) FreeStyle Test Strip See Rx Instructions .ROUTE .MEDSUPPLY Qty: 100 3RF Rx Instructions: As directed flash glucose sensor [FreeStyle Abdon 14 Day Sensor] Kit 1 ea topical Q2W 14 Days Qty: 1 3RF doxepin 10 mg capsule 10 - 20 mg PO BEDTIME 0RF ergocalciferol (vitamin D2) 1,250 mcg (50,000 unit) capsule 1,250 mcg PO QWEEK 90 Days Qty: 13 3RF (DME) nebulizer accessories Misc See Rx Instructions .Route Qty: 1 0RF Rx Instructions: As directed (DME) nebulizers Misc See Rx Instructions .Route Qty: 1 0RF Rx Instructions: As directed FreeStyle Lite Strips Strip 1 strip miscellaneous QID 30 Days Qty: 100 6RF ipratropium-albuterol 0.5 mg-3 mg(2.5 mg base)/3 mL solution for nebulization 3 ml inhalation Q6-8H PRN (Reason: wheezing) Qty: 90 0RF Flovent HFA 110 mcg/actuation HFA aerosol inhaler 1 puff inhalation Q12H Qty: 12 4RF Rx Instructions: administer with spacer atorvastatin 40 mg tablet 40 mg PO DAILY 90 Days Qty: 90 0RF omeprazole 20 mg capsule,delayed release(DR/EC) 20 mg PO DAILY 90 Days Qty: 90 0RF cyanocobalamin (vitamin B-12) 1,000 mcg tablet 1,000 mcg PO DAILY 90 Days Qty: 90 0RF Flovent Diskus 100 mcg/actuation blister with device 1 inh PO BID Qty: 60 2RF insulin lispro 100 unit/mL insulin pen 20 unit subcut TIDWMEAL 30 Days Qty: 18 1RF gabapentin 800 mg tablet 800 mg PO TID Qty: 84 3RF losartan 50 mg tablet 50 mg PO DAILY Qty: 90 0RF acetaminophen [Tylenol Extra Strength] 500 mg tablet 500 mg PO Q6H PRN (Reason: pain or fever) Qty: 20 0RF naproxen 500 mg tablet 500 mg PO BID PRN (Reason: pain) 10 Days Qty: 20 0RF (DME) FreeStyle Abdon 14 Day Sensor Kit See Rx Instructions ea topical .MEDSUPPLY Qty: 1 0RF Rx Instructions: As directed (DME) FreeStyle Lite Strips Strip See Rx Instructions strip .ROUTE .MEDSUPPLY Qty: 10 0RF Rx Instructions: As directed Tresiba FlexTouch U-200 200 unit/mL (3 mL) insulin pen 80 unit subcut DAILY Qty: 18 3RF Tresiba FlexTouch U-100 100 unit/mL (3 mL) insulin pen subcut 0RF escitalopram oxalate 20 mg tablet 20 mg PO DAILY 0RF levothyroxine 200 mcg tablet 200 mcg PO DAILY Qty: 90 3RF Rx Instructions: take with Levothyroxine 50 mcg azithromycin 250 mg tablet See Rx Instructions PO .COMPLEX Qty: 6 0RF Rx Instructions: take 500 mg today (day 1), then 250 mg for 4 days (days 2-5) PO albuterol sulfate 90 mcg/actuation HFA aerosol inhaler 2 inh inhalation Q8H PRN (Reason: shortness of breath or wheezing) 30 Days Qty: 8.5 2RF Stand Alone Forms: Work/School Release Interventions: ED Discharge Assessment Last Done: 07/20/21 23:16 Discharge Date/Time: 07/20/21 23:18
[2021-07-20 20:37] LABS: IDNOW Serial# 9DD0AD1C
[2021-07-20 20:38] LABS: COVID-19 Test Negative (Negative)
[2021-07-20] MEDS: 0.9 % Sodium Chloride 1,000 ML 999 ML IV ×2 (20:38→21:40)
[2021-07-20 20:40] VITALS: BP 143/71; PULSE 87; RESP 15; O2SAT 95
[2021-07-20] MEDS: Ketorolac Tromethamine 30 MG/ML VIAL IVPUSH (20:44)
[2021-07-20] MEDS: Insulin Lispro 100 UNIT/ML 3 ML VIAL 16 UNIT SUBCUT (20:44)
[2021-07-20 20:47] VITALS: PULSE 82
[2021-07-20] MEDS: methylPREDNISolone Sod Succ 125 MG/2 ML VIAL IVPUSH (21:01)
[2021-07-20] MEDS: Albuterol/Iprat 2.5/0.5MG 3 ML AMPUL.NEB INHALE (21:06)
[2021-07-20] MEDS: Albuterol Sulfate (0.083%) 2.5 MG/3 ML VIAL.NEB 5 MG INHALE (21:06)
[2021-07-20 21:08] VITALS: PULSE 81; RESP 14; O2SAT 99
[2021-07-20 21:13] LABS: D Dimer High Sensitivity 186 NG/ML
[2021-07-20 21:32] VITALS: BP 147/79; PULSE 78; RESP 16; O2SAT 96
[2021-07-20 21:33] LABS: Glucose, Whole Blood 498 mg/dL (60-115)
[2021-07-20] MEDS: Insulin Lispro 100 UNIT/ML 3 ML VIAL 12 UNIT SUBCUT (21:48)
[2021-07-20 22:26] LABS: Glucose, Whole Blood 469 mg/dL (60-115)
[2021-07-20 23:07] VITALS: BP 145/79; PULSE 94; RESP 19; O2SAT 97
== END 2021-07-20 23:18 | disposition home or self-care (01) ==
PROVIDERS: Emergency Provider Internal Medicine; PCP Nurse Practitioner Family
DX: J20.9 Acute bronchitis, unspecified (principal); R09.1 Pleurisy; E11.65 Type 2 diabetes mellitus with hyperglycemia; I10 Essential (primary) hypertension; Z79.4 Long term (current) use of insulin; Z20.822 Contact with and (suspected) exposure to COVID-19
CPT/HCPCS: 36415; 71045; 80048; 82947; 84484; 85025; 85379; 87635; 93005; 94640; 94644; 96361; 96374; 96375; 99284; 99285; J1885; J2930

== ENCOUNTER 2021-07-22 22:50 | Emergency (ER) | payer OTHER, SELFPAY ==
--- NOTE | ~2021-07-22 | XR_ITS ---
EXAMINATION: XR CHEST CLINICAL INFORMATION: Dyspnea. COMPARISON: Chest radiograph dated from 07/20/2021. TECHNIQUE: PA view of the chest was obtained. FINDINGS: Normal appearance of the cardiomediastinal silhouette. No focal airspace opacities, pleural effusions or pneumothorax. No acute osseous abnormalities. XR/XR chest 1V IMPRESSION: No acute cardiopulmonary findings.
--- NOTE | ~2021-07-22 | CT_ITS ---
EXAMINATION: CT CHEST WITHOUT CONTRAST CLINICAL INFORMATION: Left-sided chest wall pain COMPARISON: None TECHNIQUE: Multidetector volumetric CT imaging of the chest was done. Axial MIP volume rendering provided. Sagittal and coronal reformatted images were obtained. This CT examination was performed using dose optimization techniques as appropriate, variously including the following: *Automated exposure control *Adjustment of mA and/or kV according to patient size (this includes techniques or standardized protocols for targeted exams where dose is matched to indication/reason for exam; i.e. extremities or head) *Use of iterative reconstruction technique DLP: 671 mGy-cm FINDINGS: LUNGS: The lungs are clear with no evidence of inflammation or nodules. Small amount of air/secretions present within the dependent distal trachea and right mainstem bronchus. MEDIASTINUM: Normal heart size. No pericardial effusion. Normal caliber aorta. No mediastinal or hilar adenopathy. PLEURA: There is no pleural effusion. No pleural mass or thickening. AXILLA: No lymphadenopathy. UPPER ABDOMEN: Hepatic steatosis. OSSEOUS STRUCTURES: Minimally displaced acute left lateral fifth rib fracture. Prominent but osteophytes present within the lower thoracic spine. CT/CT chest wo con IMPRESSION: Minimally displaced acute left lateral fifth rib fracture. No pneumothorax or acute pulmonary parenchymal abnormalities. Hepatic steatosis. Fleischner guidelines were followed.
[2021-07-22 22:58] VITALS: BP 152/94; BP 162/96; PULSE 115; PULSE 120; RESP 24; TEMP 36.4; O2SAT 97; BMI 45.4
[2021-07-23 00:26] VITALS: BP 148/80; PULSE 100; RESP 14; TEMP 37; O2SAT 95
--- NOTE | 2021-07-23 01:12 | ED.GENADULT ---
HPI - General Adult General Chief complaint: Upper Respiratory Symptoms Stated complaint: sob Time Seen by Provider: 07/23/21 00:16 Source: patient Mode of arrival: ambulatory History of Present Illness HPI narrative: 50-year-old female who was seen here a couple of days ago and diagnosed with pleurisy and bronchitis and was discharged on antibiotics as well as short course of steroids but states that she has had increase pain on breathing at home. She denies any associated fever, chills, palpitations, GI or symptoms. Related Data Home Medications Medication Instructions Recorded Confirmed blood sugar diagnostic #10 ea 03/09/20 04/19/21 flash glucose sensor #1 ea 03/09/20 04/19/21 escitalopram oxalate 20 mg tablet 20 mg PO DAILY 09/13/20 04/19/21 doxepin 10 mg capsule 10 - 20 mg PO BEDTIME 01/04/21 04/19/21 insulin degludec 100 unit/mL (3 unit SUBCUT 02/08/21 04/19/21 mL) subcutaneous pen (Tresiba FlexTouch U-100 insulin) Previous Rx's Medication Instructions Recorded blood sugar diagnostic (FreeStyle #100 ea 03/11/20 Test) levothyroxine 200 mcg tablet 200 mcg PO DAILY #90 tab 09/13/20 flash glucose sensor (FreeStyle 1 ea TOPICAL Q2W 14 Days #1 ea 10/27/20 Abdon 14 Day Sensor) ergocalciferol (vitamin D2) 1,250 1,250 mcg PO QWEEK 90 Days #13 cap 01/13/21 mcg (50,000 unit) capsule insulin degludec 200 unit/mL (3 80 unit (0.4 mL) SUBCUT DAILY #18 01/18/21 mL) subcutaneous pen (Tresiba ml FlexTouch U-200 insulin) nebulizer accessories #1 ea 02/09/21 nebulizers #1 ea 02/09/21 blood sugar diagnostic (FreeStyle 1 strip MISCELLANEOUS QID 30 Days 03/02/21 Lite Strips) #100 strip acetaminophen 500 mg tablet 500 mg PO Q6H PRN #20 tab 03/18/21 (Tylenol Extra Strength) naproxen 500 mg tablet 500 mg PO BID PRN 10 Days #20 tab 03/18/21 fluticasone propionate 110 1 puff INHALATION Q12H #12 g 05/12/21 mcg/actuation HFA aerosol inhaler (Flovent HFA) ipratropium 0.5 mg-albuterol 3 mg 3 ml INHALATION Q6-8H PRN #90 ml 05/12/21 (2.5 mg base)/3 mL nebulization soln atorvastatin 40 mg tablet 40 mg PO DAILY 90 Days #90 tab 05/31/21 cyanocobalamin (vitamin B-12) 1,000 mcg PO DAILY 90 Days #90 tab 05/31/21 1,000 mcg tablet omeprazole 20 mg capsule,delayed 20 mg PO DAILY 90 Days #90 cap 05/31/21 release fluticasone propionate 100 1 inh PO BID #60 ea 07/05/21 mcg/actuation blister powder for inhalation (Flovent Diskus) insulin lispro 100 unit/mL 20 unit (0.2 mL) SUBCUT TIDWMEAL 07/05/21 subcutaneous pen 30 Days #18 ml gabapentin 800 mg tablet 800 mg PO TID #84 tab 07/06/21 azithromycin 250 mg tablet See Rx Instructions PO .COMPLEX #6 07/18/21 tab losartan 50 mg tablet 50 mg PO DAILY #90 tab 07/18/21 albuterol sulfate 90 mcg/actuation 2 inh INHALATION Q8H PRN 30 Days 07/20/21 aerosol inhaler #8.5 g cefpodoxime 200 mg tablet 200 mg PO BID #20 tab 07/20/21 codeine 10 mg-guaifenesin 100 mg/5 10 ml PO Q6H PRN #237 ml 07/20/21 mL oral liquid prednisone 20 mg tablet 40 mg PO DAILY #10 tab 07/20/21 Allergies Allergy/AdvReac Type Severity Reaction Status Date / Time doxycycline [DOXYCYCLINE] Allergy Severe THROAT Verified 07/18/21 14:49 SWELLING clindamycin [CLINDAMYCIN] Allergy Intermediate CHEST PAIN Verified 07/18/21 14:49 Sulfa (Sulfonamide Allergy Unknown makes her Verified 07/18/21 14:49 Antibiotics) sick, vomit trimethoprim [From BACTRIM] Allergy Unknown NAUSEA & Verified 07/18/21 14:49 VOMITING sulfamethoxazole AdvReac Mild NAUSEA & Verified 07/18/21 14:49 [From BACTRIM] VOMITING lisinopril Allergy Unknown headaches Uncoded 07/18/21 14:49 Review of Systems Review of Systems: Pertinent positives and negatives as stated in HPI 10 point review of systems is otherwise negative. [facility] Past Medical History Source: nursing notes reviewed Medical History Anxiety B12 deficiency Depression Diabetes Hyperlipidemia Migraines Morbid obesity Sciatic leg pain Surgical History H/O elbow surgery H/O thyroidectomy Hx of tubal ligation Family History Family History Father HTN (hypertension) CVD (cardiovascular disease) Diabetes mellitus Mental health disorder Mother Diabetes mellitus Uterine cancer COPD (chronic obstructive pulmonary disease) Mental health disorder Maternal Grandmother Breast cancer Paternal Aunt Breast cancer Brother No problems noted. Sister Substance use disorder Mental health disorder Sister No problems noted. Sister No problems noted. Daughter No problems noted. Son No problems noted. Son No problems noted. Son No problems noted. Son No problems noted. Son No problems noted. Son No problems noted. Social History Social History Housing: Apartment Alcohol intake: never Patient Tobacco Use Status: Never used Tobacco Cigarette Packs Per Day: 1 e-Cigarette/Vaping Use: Never Used Second Hand Smoke Exposure: Yes Use of substances other than those prescribed or required for medical reasons: No Advance Directives: No Advance Directives Information Provided: Yes Patient : No Current occupational status: employed Current occupation: [employer] Physical Exam ED Vital Signs: Vital Signs - 24 hr 07/22/21 22:58 07/23/21 00:26 Temperature 97.5 F 98.6 F Pulse Rate 115 H 100 Respiratory Rate 24 H 14 Blood Pressure 162/96 H 148/80 H Pulse Oximetry 97 95 BMI result Body Mass Index 45.4 VITAL SIGNS: Reviewed. GENERAL: Well developed, well nourished, in no acute distress. HEAD: Normocephalic/atraumatic, EYES: PERRLA, EOMI OROPHARYNX: no oral lesions noted, posterior pharynx clear LUNGS: Normal breath sounds. No adventitious sounds or accessory muscle use. SpO2<97> CARDIOVASCULAR: Regular rate and rhythm without noted murmurs, no JVD or lower extremity edema. ABDOMEN: Soft, non-tender, non-distended with bowel sounds. SKIN: Inspection of the skin reveals no rashes NEUROLOGIC: Alert and oriented x 4. Strength and sensation to light touch were grossly intact x 4. Course Course Course Narrative: 50-year-old female with history and clinical presentation suggestive chest wall pain given significant discomfort on movement but no evidence to suggest pericarditis or pneumonia. Obtained CT scan and on review there is a mildly displaced left 5th rib fracture. Patient received combination analgesics as well as a lidocaine patch will be discharged home in stable condition with instructions to follow-up with a primary care provider. In addition patient was instructed to discontinue the use of the prednisone as well as antibiotics as there are limited findings to suggest bronchitis. Discharge Plan Discharge Clinical Impression: Chest wall pain, Closed rib fracture Patient Disposition: Home, Self-Care Instructions: Chest Wall Pain (ED), Rib Fracture (ED) Additional Instructions: 1. Resume all home medications as prescribed. 2. Tylenol 1000 mg, orally, every 6 hours as needed for pain control. Do not exceed 4000 mg within 24 hours. 3. Lidocaine patch, these are available [id number] and should be apply to area of maximal tenderness as directed on the outside packaging. 4. You need to call your primary care provider on Sunday morning to set up an appointment for re-evaluation. Return to the ER for acute worsening of symptoms. Prescriptions: No Action (DME) FreeStyle Test Strip See Rx Instructions .ROUTE .MEDSUPPLY Qty: 100 3RF Rx Instructions: As directed flash glucose sensor [FreeStyle Abdon 14 Day Sensor] Kit 1 ea topical Q2W 14 Days Qty: 1 3RF doxepin 10 mg capsule 10 - 20 mg PO BEDTIME 0RF ergocalciferol (vitamin D2) 1,250 mcg (50,000 unit) capsule 1,250 mcg PO QWEEK 90 Days Qty: 13 3RF (DME) nebulizer accessories Misc See Rx Instructions .Route Qty: 1 0RF Rx Instructions: As directed (DME) nebulizers Misc See Rx Instructions .Route Qty: 1 0RF Rx Instructions: As directed FreeStyle Lite Strips Strip 1 strip miscellaneous QID 30 Days Qty: 100 6RF ipratropium-albuterol 0.5 mg-3 mg(2.5 mg base)/3 mL solution for nebulization 3 ml inhalation Q6-8H PRN (Reason: wheezing) Qty: 90 0RF Flovent HFA 110 mcg/actuation HFA aerosol inhaler 1 puff inhalation Q12H Qty: 12 4RF Rx Instructions: administer with spacer atorvastatin 40 mg tablet 40 mg PO DAILY 90 Days Qty: 90 0RF omeprazole 20 mg capsule,delayed release(DR/EC) 20 mg PO DAILY 90 Days Qty: 90 0RF cyanocobalamin (vitamin B-12) 1,000 mcg tablet 1,000 mcg PO DAILY 90 Days Qty: 90 0RF Flovent Diskus 100 mcg/actuation blister with device 1 inh PO BID Qty: 60 2RF insulin lispro 100 unit/mL insulin pen 20 unit subcut TIDWMEAL 30 Days Qty: 18 1RF gabapentin 800 mg tablet 800 mg PO TID Qty: 84 3RF losartan 50 mg tablet 50 mg PO DAILY Qty: 90 0RF acetaminophen [Tylenol Extra Strength] 500 mg tablet 500 mg PO Q6H PRN (Reason: pain or fever) Qty: 20 0RF naproxen 500 mg tablet 500 mg PO BID PRN (Reason: pain) 10 Days Qty: 20 0RF cefpodoxime 200 mg tablet 200 mg PO BID Qty: 20 0RF Rx Instructions: must administer with a meal/food codeine-guaifenesin 10-100 mg/5 mL liquid 10 ml PO Q6H PRN (Reason: cough) Qty: 237 0RF prednisone 20 mg tablet 40 mg PO DAILY Qty: 10 0RF (DME) FreeStyle Abdon 14 Day Sensor Kit See Rx Instructions ea topical .MEDSUPPLY Qty: 1 0RF Rx Instructions: As directed (DME) FreeStyle Lite Strips Strip See Rx Instructions strip .ROUTE .MEDSUPPLY Qty: 10 0RF Rx Instructions: As directed Tresiba FlexTouch U-200 200 unit/mL (3 mL) insulin pen 80 unit subcut DAILY Qty: 18 3RF Tresiba FlexTouch U-100 100 unit/mL (3 mL) insulin pen subcut 0RF escitalopram oxalate 20 mg tablet 20 mg PO DAILY 0RF levothyroxine 200 mcg tablet 200 mcg PO DAILY Qty: 90 3RF Rx Instructions: take with Levothyroxine 50 mcg azithromycin 250 mg tablet See Rx Instructions PO .COMPLEX Qty: 6 0RF Rx Instructions: take 500 mg today (day 1), then 250 mg for 4 days (days 2-5) PO albuterol sulfate 90 mcg/actuation HFA aerosol inhaler 2 inh inhalation Q8H PRN (Reason: shortness of breath or wheezing) 30 Days Qty: 8.5 2RF Referrals: Marissa Ward MD [Primary Care Provider] - 2 days
[2021-07-23] MEDS: Lidocaine 4 % Patch ADH..PATCH 1 PATCH TRANSDERMA (02:44)
[2021-07-23] MEDS: Ketorolac Tromethamine 15 MG/ML VIAL IM (02:45)
[2021-07-23] MEDS: Acetaminophen 325 MG TABLET 975 MG PO (02:46)
[2021-07-23 02:54] VITALS: BP 148/92; PULSE 100; RESP 18; TEMP 37; O2SAT 97
== END 2021-07-23 02:57 | disposition home or self-care (01) ==
PROVIDERS: Emergency Provider Student in an Organized Health Care Education/Training Program; PCP Internal Medicine
DX: R07.89 Other chest pain (principal); S22.32XA Fracture of one rib, left side, initial encounter for closed fracture; X58.XXXA Exposure to other specified factors, initial encounter; Y93.9 Activity, unspecified; Y92.9 Unspecified place or not applicable; Y99.9 Unspecified external cause status; F17.200 Nicotine dependence, unspecified, uncomplicated; E11.9 Type 2 diabetes mellitus without complications; I10 Essential (primary) hypertension; E78.5 Hyperlipidemia, unspecified; Z79.02 Long term (current) use of antithrombotics/antiplatelets; Z79.4 Long term (current) use of insulin
CPT/HCPCS: 71045; 71250; 96372; 99284; 99285; J1885

== ENCOUNTER 2021-09-02 01:27 | Emergency (ER) | payer OTHER, SELFPAY ==
[2021-09-02 01:40] VITALS: BP 140/59; PULSE 93; RESP 16; TEMP 36.6; O2SAT 97; BMI 44.7
--- NOTE | 2021-09-02 02:47 | PC.NURSE ---
Pt's visitor called me to bedside. Pt and visitor frustrated regarding time to see the provider. Pt educated that a definitive timeframe could not be given for provider evaluation. The frustations were vented to this process description writer. Pt stated This is not my first time here for this type of stuff and can't you do something for me like pain medication or anything . Education provided to the patient that due to the location of her question abscess being located near her buttocks. That the initial evaluation should be preformed by the provider. Both the patient and visitor then stated i'm not putting up with this bullshit, you have a fucking attitude. everyone has a fucking attitude. pt then ambulated to exit with steady gait. Skin p/w/d and appeared in no apparent distress. Provider aware.
== END 2021-09-02 02:55 | disposition left against medical advice (07) ==
PROVIDERS: Emergency Provider Emergency Medicine; PCP Nurse Practitioner Family
DX: L02.31 Cutaneous abscess of buttock (principal); I10 Essential (primary) hypertension; E11.9 Type 2 diabetes mellitus without complications; F17.200 Nicotine dependence, unspecified, uncomplicated
CPT/HCPCS: 99281; 99282

== ENCOUNTER 2021-09-03 16:18 | Inpatient (IN) | payer OTHER, SELFPAY ==
[2021-09-03] VITALS (7 sets, daily range): BP systolic 127–150; BP diastolic 48–80; PULSE 87–96; RESP 16–19; TEMP 36.9–37.1; O2SAT 96–98; BMI 44.7
--- NOTE | ~2021-09-03 | CT_ITS ---
EXAMINATION: CT PELVIS WITH CONTRAST CLINICAL INFORMATION: Buttock abscess. COMPARISON: CT abdomen and pelvis 06/02/2021 TECHNIQUE: Helical scanning was performed with submillimeter collimation through the pelvis with the use of oral contrast and during bolus intravenous injection of 85 mL of Omnipaque 350 intravenous contrast. Sagittal and coronal multiplanar 2-D reconstructions were obtained. This CT examination was performed using dose optimization techniques as appropriate, variously including the following: *Automated exposure control *Adjustment of mA and/or kV according to patient size (this includes techniques or standardized protocols for targeted exams where dose is matched to indication/reason for exam; i.e. extremities or head) *Use of iterative reconstruction technique DLP: 558 mGy-cm FINDINGS: PELVIS: There is a large induration and thickening of left buttock skin and underlying subcutaneous soft tissues. The abnormality extends along the midline intergluteal soft tissues to the anal region and inferiorly to involve the posterior and medial thigh soft tissues. There is no drainable abscess or gas collection seen. Most suggestive of chronic inflammatory process. Visualized uterus, bladder and sigmoid colon appears unremarkable. There is no free fluid in the pelvis. There are small shotty inguinal lymph nodes likely reactive to inflammation. No evidence of hernia. Mild degenerative facet joint disease is seen at L5-S1 and L4-L5 disc levels. OSSEOUS STRUCTURES: No evidence of osteomyelitis involving the sacrum or coccyx. No lytic process. There is subtle angulation of the C1-C2 coccyx likely old injury. CT/CT pelvis w con IMPRESSION: Large induration and thickening of left buttock skin and the underlying subcutaneous soft tissues extending medially to anal region and the intergluteal fold. Inferiorly extends along the posterior medial inner and upper thigh. There is no drainable abscess, gas or fluid collection.
--- NOTE | 2021-09-03 16:26 | ED.SKABFB ---
HPI - Skin/Abscess/Foreign Bdy General Chief complaint: Skin/Abscess/Foreign Body Stated complaint: abscess Time Seen by Provider: 09/03/21 16:23 Source: patient and EMS Mode of arrival: EMS Limitations: no limitations History of Present Illness HPI narrative: 50-year-old female with a history of anxiety, depression, high cholesterol, migraines, obesity, insulin-dependent diabetes here with reports of abscess to the buttocks which is been a recurrent problem for her. Patient tells me she seen a surgeon here at [facility] but at that time the abscess was better and so no surgical options were offered. She tells me over the last week she noticed that the swelling and redness was worse. She has had some chills and some nausea. No fever or vomiting. Patient tells me that she has not been taking her diabetes medication Related Data Home Medications Medication Instructions Recorded Confirmed escitalopram oxalate 20 mg tablet 20 mg PO DAILY 09/13/20 09/03/21 doxepin 10 mg capsule 10 - 20 mg PO BEDTIME 01/04/21 09/03/21 Previous Rx's Medication Instructions Recorded levothyroxine 200 mcg tablet 200 mcg PO DAILY #90 tab 09/13/20 ergocalciferol (vitamin D2) 1,250 1,250 mcg PO QWEEK 90 Days #13 cap 01/13/21 mcg (50,000 unit) capsule insulin degludec 200 unit/mL (3 80 unit (0.4 mL) SUBCUT DAILY #18 01/18/21 mL) subcutaneous pen (Tresiba ml FlexTouch U-200 insulin) acetaminophen 500 mg tablet 500 mg PO Q6H PRN #20 tab 03/18/21 (Tylenol Extra Strength) naproxen 500 mg tablet 500 mg PO BID PRN 10 Days #20 tab 03/18/21 fluticasone propionate 110 1 puff INHALATION Q12H #12 g 05/12/21 mcg/actuation HFA aerosol inhaler (Flovent HFA) fluticasone propionate 100 1 inh PO BID #60 ea 07/05/21 mcg/actuation blister powder for inhalation (Flovent Diskus) gabapentin 800 mg tablet 800 mg PO TID #84 tab 07/06/21 losartan 50 mg tablet 50 mg PO DAILY #90 tab 07/18/21 albuterol sulfate 90 mcg/actuation 2 inh INHALATION Q8H PRN 30 Days 07/20/21 aerosol inhaler #8.5 g tramadol 50 mg tablet 50 mg PO BID PRN 7 Days #14 tab 07/26/21 ipratropium 0.5 mg-albuterol 3 mg 3 ml INHALATION Q6-8H PRN #90 ml 08/27/21 (2.5 mg base)/3 mL nebulization soln atorvastatin 40 mg tablet 40 mg PO DAILY 90 Days #90 tab 08/29/21 cyanocobalamin (vitamin B-12) 1,000 mcg PO DAILY 90 Days #90 tab 08/29/21 1,000 mcg tablet insulin lispro 100 unit/mL 20 unit (0.2 mL) SUBCUT TIDWMEAL 08/29/21 subcutaneous pen 30 Days #18 ml omeprazole 20 mg capsule,delayed 20 mg PO DAILY 90 Days #90 cap 08/29/21 release Allergies Allergy/AdvReac Type Severity Reaction Status Date / Time doxycycline [DOXYCYCLINE] Allergy Severe THROAT Verified 09/03/21 16:32 SWELLING clindamycin [CLINDAMYCIN] Allergy Intermediate CHEST PAIN Verified 09/03/21 16:32 Sulfa (Sulfonamide Allergy Unknown makes her Verified 09/03/21 16:32 Antibiotics) sick, vomit trimethoprim [From BACTRIM] Allergy Unknown NAUSEA & Verified 09/03/21 16:32 VOMITING sulfamethoxazole AdvReac Mild NAUSEA & Verified 09/03/21 16:32 [From BACTRIM] VOMITING lisinopril Allergy Unknown headaches Uncoded 07/18/21 14:49 Review of Systems Review of Systems: Yes all other systems are reviewed and are negative Constitutional: Constitutional: Reports no additional constitutional complaints, Denies body ache(s), Denies chills, Denies fever(s), Denies headache(s) and Denies weakness Eyes: Eyes: Reports no additional eye complaints and Denies change in vision ENT: Reports system reviewed and no additional complaints, except as documented, Denies dizziness, Denies headache(s), Denies nasal congestion, Denies nasal discharge and Denies neck pain Cardiovascular: Cardiovascular: Reports no additional cardiovascular complaints, Denies chest pain, Denies leg edema and Denies dyspnea Respiratory: Respiratory: Reports no additional respiratory complaints, Denies cough and Denies dyspnea Gastrointestinal: Gastrointestinal: Reports no additional gastrointestinal complaints, Denies abdominal pain, Denies diarrhea, Denies nausea and Denies vomiting Genitourinary: Genitourinary: Reports no additional female genitourinary complaints and Denies urinary incontinence Musculoskeletal: Musculoskeletal: Reports no additional musculoskeletal complaints, Denies back pain, Denies arthralgias, Denies joint swelling, Denies neck pain, Denies numbness and Denies tingling Integumentary/Breasts: Skin/Breast: Reports system reviewed and no additional complaints, except as docu and Denies rash Neurologic: Reports system reviewed and no additional complaints, except as documented, Denies Abnormal speech present, Denies dizziness, Denies headache(s), Denies numbness, Denies tingling and Denies weakness PMFSH Past Medical History Attestation statement: The following information was validated with the patient. Source: old records reviewed and nursing notes reviewed Medical History Anxiety B12 deficiency Depression Diabetes Hyperlipidemia Migraines Morbid obesity Sciatic leg pain Surgical History H/O elbow surgery H/O thyroidectomy Hx of tubal ligation Family History Family History Father HTN (hypertension) CVD (cardiovascular disease) Diabetes mellitus Mental health disorder Mother Diabetes mellitus Uterine cancer COPD (chronic obstructive pulmonary disease) Mental health disorder Maternal Grandmother Breast cancer Paternal Aunt Breast cancer Brother No problems noted. Sister Substance use disorder Mental health disorder Sister No problems noted. Sister No problems noted. Daughter No problems noted. Son No problems noted. Son No problems noted. Son No problems noted. Son No problems noted. Son No problems noted. Son No problems noted. Social History Social History Housing: Apartment Alcohol intake: never Patient Tobacco Use Status: Never used Tobacco Cigarette Packs Per Day: 1 e-Cigarette/Vaping Use: Never Used Second Hand Smoke Exposure: Yes Advance Directives: No Advance Directives Information Provided: No Patient : No Current occupational status: employed Current occupation: [employer] Physical Exam Vital Signs: Vital Signs: Last Vital Signs Temp 98.5 F 09/03/21 18:21 Pulse 87 09/03/21 18:21 Resp 17 09/03/21 18:26 BP 127/48 L 09/03/21 18:21 Pulse Ox 98 09/03/21 18:21 BMI result Body Mass Index 44.7 Const: General: cooperative, healthy appearing, comfortable and no acute distress Orientation/consciousness: patient oriented x3 Limitations: no limitations HEENT: Head: Yes normal to inspection Ears: hearing grossly normal bilaterally General nose exam: Normal external nose present Face and sinus: Yes normal facial exam Mouth: Normal oral and palatal mucosa present Throat: Yes posterior oropharynx normal Eyes: General: appearance normal, both eyes and all related structures Pupils: Equal, round and reactive pupils present Neck: Neck: Yes normal visual inspection Chest: Chest palpation & inspection: normal inspection of the chest Resp: Effort & Inspection: normal respiratory effort Auscultation: clear to auscultation bilaterally Cardio: Rate: regular rate Rhythm: regular rhythm Peripheral pulses: Peripheral pulses 2+ throughout GI: Inspection: Yes normal to inspection Palpation (GI): Soft to palpation and nontender Auscultation: normal bowel sounds Back/Spine/Pelvis: Other: There is induration w/ central fluctuance and tenderness Thoracic/Lumbar Spine: thoracic and lumbar spine normal to inspection Back/spine/pelvis image: 1. abscess Skin: General skin exam: no rashes or lesions noted Neuro: General: patient oriented x3, no focal motor deficits and normal sensation to monofilament Cranial nerves: Yes Equal, round and reactive pupils present Cognition (Neuro): normal cognition Speech: No Abnormal speech present Gait exam (Neuro): Normal gait present Motor exam (neuro): 5/5 motor strength present throughout Extrem: General: Yes normal to inspection Course Course Course Narrative: 50 yo female diabetic here with recurrent gluteal abscess worsening over the last week with chills, nausea. On exam recurrent quite large abscess noted on exam. Will check labs including bcx, lactic acid, obtain CT pelvis. At this time infection is suspected. Antibiotics ordered 1739-labs show leukocytosis. Blood glucose 515 with no evidence of DKA. Will give insulin IV, NSB. Anticipate admission. 1849- CT Shows -Large induration and thickening of left buttock skin and the underlying subcutaneous soft tissues extending medially to anal region and the intergluteal fold. Inferiorly extends along the posterior medial inner and upper thigh. There is no drainable abscess, gas or fluid collection. Call out to medicine to discuss for admission. 0-Spoke to Dr Farmer who accepted admission. 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 Lab Data Attestation: I reviewed the patient's lab results. Result diagrams: 09/03/21 16:46 09/03/21 16:46 Labs: Lab Results 09/03/21 09/03/21 09/03/21 Range/Units 16:45 16:46 16:46 WBC 13.8 H (4.8-10.8) X10*3/uL RBC 4.98 (4.20-5.50) X10*6/uL Hgb 14.6 (12.0-16.0) g/dl Hct 43.2 (37.0-47.0) % MCV 86.7 (80.0-98.0) fL MCH 29.3 (27.0-33.0) pg MCHC 33.8 (31.0-35.0) g/dl RDW 12.6 (11.0-16.0) % Plt Count 283 (160-400) X10*3/uL MPV 10.2 (9.4-12.3) fL Immature Gran % (Auto) 0.4 (0.0-0.4) % Neut % (Auto) 74.0 H (45-73) % Lymph % (Auto) 15.5 L (20-40) % [place] % (Auto) 7.5 (2-11) % Eos % (Auto) 2.1 (0-4) % Baso % (Auto) 0.5 (0-2) % Lymph # (Auto) 2.1 (1.2-4.9) X10*3/uL [place] # (Auto) 1.0 (0.1-1.2) X10*3/uL Eos # (Auto) 0.3 (0.0-0.4) X10*3/uL Baso # (Auto) 0.1 (0.0-0.2) X10*3/uL Abs Immat Gran (auto) 0.06 H (0.00-0.03) X10*3/uL Absolute Neuts (auto) 10.2 H (2.0-8.3) x10*3/uL Absolute Nucleated RBC 0.000 (0.0-0.012) X10*3/uL Nucleated RBC % (auto) 0.0 (0.0-0.2) /100WBC Sodium 134 L (135-145) mmol/L Potassium 4.8 (3.3-5.1) mmol/L Chloride 98 (96-108) mmol/L Carbon Dioxide 28 (22-29) mmol/L Anion Gap 13 (12-20) BUN 9 (9-16) mg/dL Creatinine 0.85 (0.5-1.4) mg/dL Estim Creat Clear Calc 102.6 Estimated GFR > 60 Random Glucose 515 H* (60-115) mg/dL Lactic Acid 1.1 (0.5-2.0) mmol/L Calcium 9.2 (8.4-10.2) mg/dL Total Bilirubin 0.4 (0.0-1.0) mg/dL Direct Bilirubin 0.2 (0.0-0.5) mg/dL AST 12 D (5-31) U/L ALT 11 (0-31) U/L Alkaline Phosphatase 134 H D (39-117) U/L Total Protein 6.6 (6.5-8.0) g/dL Albumin 3.3 L (3.5-5.0) g/dL COVID-19 ([facility]IL[facility]) (Negative) COVID-19 Clin Com 09/03/21 Range/Units 18:32 WBC (4.8-10.8) X10*3/uL RBC (4.20-5.50) X10*6/uL Hgb (12.0-16.0) g/dl Hct (37.0-47.0) % MCV (80.0-98.0) fL MCH (27.0-33.0) pg MCHC (31.0-35.0) g/dl RDW (11.0-16.0) % Plt Count (160-400) X10*3/uL MPV (9.4-12.3) fL Immature Gran % (Auto) (0.0-0.4) % Neut % (Auto) (45-73) % Lymph % (Auto) (20-40) % [place] % (Auto) (2-11) % Eos % (Auto) (0-4) % Baso % (Auto) (0-2) % Lymph # (Auto) (1.2-4.9) X10*3/uL [place] # (Auto) (0.1-1.2) X10*3/uL Eos # (Auto) (0.0-0.4) X10*3/uL Baso # (Auto) (0.0-0.2) X10*3/uL Abs Immat Gran (auto) (0.00-0.03) X10*3/uL Absolute Neuts (auto) (2.0-8.3) x10*3/uL Absolute Nucleated RBC (0.0-0.012) X10*3/uL Nucleated RBC % (auto) (0.0-0.2) /100WBC Sodium (135-145) mmol/L Potassium (3.3-5.1) mmol/L Chloride (96-108) mmol/L Carbon Dioxide (22-29) mmol/L Anion Gap (12-20) BUN (9-16) mg/dL Creatinine (0.5-1.4) mg/dL Estim Creat Clear Calc Estimated GFR Random Glucose (60-115) mg/dL Lactic Acid (0.5-2.0) mmol/L Calcium (8.4-10.2) mg/dL Total Bilirubin (0.0-1.0) mg/dL Direct Bilirubin (0.0-0.5) mg/dL AST (5-31) U/L ALT (0-31) U/L Alkaline Phosphatase (39-117) U/L Total Protein (6.5-8.0) g/dL Albumin (3.5-5.0) g/dL COVID-19 ([facility]ILDA) Negative (Negative) COVID-19 Clin Com See Note Imaging Data CT pelvis: Attestation: I personally reviewed and interpreted this imaging study as follows: Radiologist's impression: Large induration and thickening of left buttock skin and the underlying subcutaneous soft tissues extending medially to anal region and the intergluteal fold. Inferiorly extends along the posterior medial inner and upper thigh. There is no drainable abscess, gas or fluid collection. Discharge Plan Discharge Clinical Impression: Cellulitis Patient Disposition: Admitted As Inpatient
[2021-09-03 16:53] LABS: MANUAL DIFF FLAG NO
[2021-09-03 16:55] LABS: Basophils Absolute Auto 0.1 X10*3/uL (0.0-0.2); Basophils Percent Auto 0.5 % (0-2); Eosinophils Absolute Auto 0.3 X10*3/uL (0.0-0.4); Eosinophils Percent Auto 2.1 % (0-4); Hematocrit 43.2 % (37.0-47.0); Hemoglobin 14.6 g/dl (12.0-16.0); Imm Gran Abs Auto 0.06 X10*3/uL (0.00-0.03); Imm Gran Pct Auto 0.4 % (0.0-0.4); Lymphocytes Absolute Auto 2.1 X10*3/uL (1.2-4.9); Lymphocytes Percent Auto 15.5 % (20-40); Mean Corpuscular HGB Conc 33.8 g/dl (31.0-35.0); Mean Corpuscular Hemoglobin 29.3 pg (27.0-33.0); Mean Corpuscular Volume 86.7 fL (80.0-98.0); Mean Platelet Volume 10.2 fL (9.4-12.3); Monocytes Percent Auto 7.5 % (2-11); Neutrophils Absolute Auto 10.2 x10*3/uL (2.0-8.3); Platelet Count 283 X10*3/uL (160-400); Red Blood Count 4.98 X10*6/uL (4.20-5.50); Red Cell Distribution Width 12.6 % (11.0-16.0); White Blood Count 13.8 X10*3/uL (4.8-10.8)
[2021-09-03] MEDS: 0.9 % Sodium Chloride 1,000 ML 999 ML IV (17:02)
[2021-09-03] MEDS: ondansetron HCL 4 MG/2 ML VIAL IVPUSH (17:02)
[2021-09-03] MEDS: Morphine Sulfate 4 MG/ML CARTRIDGE IVPUSH ×2 (17:02→18:26)
[2021-09-03 17:15] LABS: Lactic Acid 1.1 mmol/L (0.5-2.0)
[2021-09-03 17:30] LABS: Alanine Aminotransferase 11 U/L (0-31); Albumin Level 3.3 g/dL (3.5-5.0); Alkaline Phosphatase 134 U/L (39-117); Anion Gap 13 (12-20); Aspartate Amino Transferase 12 U/L (5-31); Bilirubin Direct 0.2 mg/dL (0.0-0.5); Bilirubin Total 0.4 mg/dL (0.0-1.0); Blood Urea Nitrogen 9 mg/dL (9-16); Calcium 9.2 mg/dL (8.4-10.2); Carbon Dioxide 28 mmol/L (22-29); Chloride 98 mmol/L (96-108); Creatinine Clr Calc Pharmacy 102.6; Estimated Glomerular Filt Rate > 60; Glucose Random 515 mg/dL (60-115); Potassium 4.8 mmol/L (3.3-5.1); Sodium 134 mmol/L (135-145); Total Protein 6.6 g/dL (6.5-8.0)
[2021-09-03] MEDS: Piperacillin Sodium/Tazobactam 3.375 GM in 0.9 % Sodium Chloride 50 ML IV (17:36)
[2021-09-03] MEDS: iohexoL 350 MG/ML 100 ML INFUS..BTL IV (18:00)
[2021-09-03] MEDS: Insulin Regular, Human 100 UNIT/ML 3 ML VIAL 10 UNIT IVPUSH (18:23)
--- NOTE | 2021-09-03 18:24 | PHA.MEDREC ---
Pharmacy Consult ? Medication Reconciliation Pharmacy has completed the medication reconciliation.
[2021-09-03 18:52] LABS: COVID-19 Test Negative (Negative); IDNOW Serial# 16C4AD1C
--- NOTE | 2021-09-03 19:13 | PM.IMHP ---
History of Present Illness Date of Service: 09/03/21 Chief Complaint: Buttock redness/tenderness 50-year-old female with a past medical history of hypertension, hyperlipidemia, diabetes, anxiety, depression, migraines, morbid obesity, sciatica, history of buttock cellulitis; presented to the hospital today with a chief complaint of buttock pain redness and swelling; mentioned that about a week ago she had a pimple that she picked and followed by she had increased redness and tenderness in the buttock area; mentions she has subjective chills. Also complains of generalized weakness. Mentions for the past 1 week she has not been complaint with her home insulins. Denies any fevers cough or sputum production. Denies any chest pain palpitations lightheadedness or dizziness. Denies any numbness tingling or focal weakness. Review of all other systems is negative except mentioned above ER course: Per ER team patient noted to have perianal redness, tender, warm, CT scan showed no evidence of abscess; patient was given IV vancomycin and Zosyn. Also noted to have elevated blood sugars in 400s; given regular insulin IV push. Admitted for further management. [facility] Medical History (Updated 01/03/22 @ 16:10 by Dino Stone MD) Anxiety B12 deficiency Cellulitis of buttock Depression Diabetes Hyperlipidemia Migraines Morbid obesity Sciatic leg pain Uncontrolled diabetes mellitus Family History Father HTN (hypertension) CVD (cardiovascular disease) Diabetes mellitus Mental health disorder Mother Diabetes mellitus Uterine cancer COPD (chronic obstructive pulmonary disease) Mental health disorder Maternal Grandmother Breast cancer Paternal Aunt Breast cancer Brother No problems noted. Sister Substance use disorder Mental health disorder Sister No problems noted. Sister No problems noted. Daughter No problems noted. Son No problems noted. Son No problems noted. Son No problems noted. Son No problems noted. Son No problems noted. Son No problems noted. Pertinent family history: As mentioned above Surgical History (Updated 09/10/21 @ 00:03 by Luly Boswell) H/O elbow surgery H/O thyroidectomy Hx of tubal ligation Social History Household Members: Family Housing: Apartment Do you presently have visiting nurse or other home services: No Alcohol intake: never Patient Tobacco Use Status: Current everyday Tobacco user Tobacco use type: Cigarette Cigarette Packs Per Day: 1 Cigarettes Per Day: 3 Years Smoked: 20 e-Cigarette/Vaping Use: Currently Using Second Hand Smoke Exposure: No service: No Current occupational status: employed Current occupation: [employer] Meds Allergies Allergy/AdvReac Type Severity Reaction Status Date / Time doxycycline [DOXYCYCLINE] Allergy Severe THROAT Verified 01/03/22 15:45 SWELLING clindamycin [CLINDAMYCIN] Allergy Intermediate CHEST PAIN Verified 01/03/22 15:45 Sulfa (Sulfonamide Allergy Unknown makes her Verified 01/03/22 15:45 Antibiotics) sick, vomit trimethoprim [From BACTRIM] Allergy Unknown NAUSEA & Verified 01/03/22 15:45 VOMITING sulfamethoxazole AdvReac Mild NAUSEA & Verified 01/03/22 15:45 [From BACTRIM] VOMITING lisinopril Allergy Unknown headaches Uncoded 01/03/22 15:45 Active Medications: Current Medications Acetaminophen (Acetaminophen 325 Mg Tablet) 650 mg PO Q6H PRN PRN Reason: Pain, Mild (Pain Scale 1-3) Benzonatate (Benzonatate 100 Mg Capsule) 100 mg PO TID PRN PRN Reason: Cough Dextrose (Dextrose 50 % 25 Gm/50 Ml Vial) 25 gm IVPUSH Q15M PRN; Protocol PRN Reason: per Hypoglycemia Standing Ord. Enoxaparin Sodium (Enoxaparin Sodium 40 Mg/0.4 Ml Syringe) 40 mg SUBCUT Q24H BE Glucose (Glucose Gel 15 Gm Gel..Gram.) 15 gm PO Q15M PRN; Protocol PRN Reason: per Hypoglycemia Standing Ord. Hydromorphone HCl (Hydromorphone Hcl 1 Mg/Ml Syringe) 0.5 mg IVPUSH Q4H PRN; Protocol PRN Reason: Pain, Severe (Pain Scale 7-10) Vancomycin HCl 2,000 mg/ (Sodium Chloride) 540 mls @ 270 mls/hr IV ONCE ONE Stop: 09/03/21 20:59 Vancomycin HCl 1,000 mg/ (Sodium Chloride) 270 mls @ 270 mls/hr IV Q12H BE Piperacillin Sod/Tazobactam (Sod 3.375 gm/ Sodium Chloride) 50 mls @ 100 mls/hr IV Q6H BE Insulin Glargine (Insulin Glargine,Hum.Rec.Anlog 100 Unit/Ml 10 Ml Vial) 40 unit SUBCUT BEDTIME [facility] Insulin Human Lispro (Insulin Lispro 100 Unit/Ml 3 Ml Vial) 0 unit SUBCUT QIDACHS [facility]; Protocol Melatonin (Melatonin 3 Mg Tablet) 6 mg PO BEDTIME PRN PRN Reason: Insomnia Pharmacy Consult (Consult Rx Perform Med Rec) 1 each MISCELLANE ONCE PRN PRN Reason: Consult order Pharmacy Consult (Consult Rx Vancomycin Dosing) 1 each MISCELLANE DAILY PRN PRN Reason: Consult order Pharmacy Consult (Consult Rx Vancomycin Dosing) 1 each MISCELLANE DAILY PRN PRN Reason: Consult order Senna (Sennosides 8.6 Mg Tablet) 17.2 mg PO BEDTIME PRN PRN Reason: Constipation Sodium Chloride (0.9 % Sodium Chloride Flush 3 Ml Syringe) 3 ml IVFLUSH QSHIFT [facility] Home Medications Medication Instructions Recorded Confirmed Last Taken Type escitalopram oxalate 20 mg tablet 20 mg PO DAILY 09/13/20 09/03/21 Unknown History doxepin 10 mg capsule 10 - 20 mg PO BEDTIME 01/04/21 09/03/21 Unknown History bupropion HCl 100 mg tablet,12 hr 1 tab PO DAILY 09/07/21 09/07/21 Unknown History sustained-release Physical Exam Vital Signs and Narrative: Vital Signs: Last Vital Signs Temp 98.5 F 09/03/21 18:21 Pulse 87 09/03/21 18:21 Resp 17 09/03/21 18:26 BP 127/48 L 09/03/21 18:21 Pulse Ox 98 09/03/21 18:21 BMI result Body Mass Index 44.7 Gen: Appears be in no acute distress HEENT: NCAT, Moist mucosa. Pulmonary: Vesicular breath sounds, fair air entry CVS: Normal S1-S2 Abdomen: BS+, Soft, Nontender Extremities: Warm well perfused Neuro: Alert and awake. Integumentary: Perianal erythema noted as showing the picture below. Results Labs CBC and Chem 7: 09/08/21 05:35 09/08/21 05:35 Labs: Laboratory Results - last 24 hr 09/03/21 09/03/21 09/03/21 16:45 16:46 16:46 MCV 86.7 MCH 29.3 MCHC 33.8 RDW 12.6 Plt Count 283 MPV 10.2 Immature Gran % (Auto) 0.4 Neut % (Auto) 74.0 H Lymph % (Auto) 15.[address] [place] % (Auto) 7.5 Eos % (Auto) 2.1 Baso % (Auto) 0.5 Lymph # (Auto) 2.1 [place] # (Auto) 1.0 Eos # (Auto) 0.3 Baso # (Auto) 0.1 Abs Immat Gran (auto) 0.06 H Absolute Neuts (auto) 10.2 H Absolute Nucleated RBC 0.000 Nucleated RBC % (auto) 0.0 Anion Gap 13 Estim Creat Clear Calc 102.6 Estimated GFR > 60 Random Glucose 515 H* Lactic Acid 1.1 Calcium 9.2 Total Bilirubin 0.4 Direct Bilirubin 0.2 AST 12 D ALT 11 Alkaline Phosphatase 134 H D Total Protein 6.6 Albumin 3.3 L COVID-19 (HILDA) COVID-19 Clin Com 09/03/21 18:32 MCV MCH MCHC RDW Plt Count MPV Immature Gran % (Auto) Neut % (Auto) Lymph % (Auto) [place] % (Auto) Eos % (Auto) Baso % (Auto) Lymph # (Auto) [place] # (Auto) Eos # (Auto) Baso # (Auto) Abs Immat Gran (auto) Absolute Neuts (auto) Absolute Nucleated RBC Nucleated RBC % (auto) Anion Gap Estim Creat Clear Calc Estimated GFR Random Glucose Lactic Acid Calcium Total Bilirubin Direct Bilirubin AST ALT Alkaline Phosphatase Total Protein Albumin COVID-19 (HILDA) Negative COVID-19 Clin Com See Note Imaging Radiologist's Impressions: Impressions Pelvis CT 09/03/21 18:01 IMPRESSION: Large induration and thickening of left buttock skin and the underlying subcutaneous soft tissues extending medially to anal region and the intergluteal fold. Inferiorly extends along the posterior medial inner and upper thigh. There is no drainable abscess, gas or fluid collection. Assessment and Plan (1) Cellulitis: Status: Resolved (2) Diabetes: Plan 50-year-old female with a past medical history of hypertension, hyperlipidemia, diabetes, anxiety, depression, migraines, morbid obesity, sciatica, history of buttock cellulitis; presented to the hospital today with a chief complaint of buttock pain redness and swelling. Noted to have cellulitis. Admitted for further management. Perianal cellulitis: Patient had similar episodes in the past. Continue IV vancomycin and Zosyn Will consult ID given recurrent episodes CT scan showed no evidence of fluid collection. History of insulin-dependent diabetes/hyperglycemia: Patient has been noncompliant with her home insulins. Patient is on degludec 80 on its daily and lispro 20 units t.i.d. at home. Will keep the patient on Lantus 40 units and insulin sliding scale. Monitor fingerstick glucose and adjust as needed. History of hypothyroidism: Continue home levothyroxine History of hypertension/hyperlipidemia: Continue home medications DVT prophylaxis: Lovenox Code status: Full code Quality Stroke Does the patient have a stroke diagnosis?: No VTE Prior VTE?: No VTE Risk Level:: Medical - moderate - high VTE Device Contraindication: Treatment Not Indicated VTE Drug Contraindication: N/A - Med Ordered
[2021-09-03 19:18] LABS: Glucose, Whole Blood 237 mg/dL (60-115)
--- NOTE | 2021-09-03 19:19 | PHA.PROG ---
Admission Date/Time: September 03, 2021 19:08 Indication:SKIN AND SOFT TISSUE INFECTION Weight in k.016 kg Adjusted body weight in K.007 KG [place] body weight in Kg: Obesity Dosing Indication % IBW: Serum Creatinine - Last 168 Hours 09/03/21 16:46 Creatinine 0.85 Estimated CrCl and GFR - Last 168 Hours 09/03/21 16:46 Estim Creat Clear Calc 102.6 Estimated GFR > 60 Vancomycin Loading Dose: 2000 MG X1 Current Vancomycin Dosing Regimen: 1000 MG Q12H Vancomycin Monitoring using AUC goal of 400 - 600 range with trough as surrogate marker: MODEL IS PREDICTING A AUC OF 521 AND A TROUGH OF 15.2. Date and Time for next Vancomycin Level to be drawn: 09/05 @ 0600 Pharmacist Comments on Vancomycin Plan: CONTINUE TO MONITOR RENAL FUNCTION, IT IS IN THE [place]ESE DOSING MODEL Vancomycin dosing will take advantage of [employer] as a clinical decision support tool that uses Bayesian modeling to calculate individual patient's pharmacokinetic parameters and forecast the patient's drug concentration time course with the target goal AUC 24 range of 400 - 600 mg/L/hr.
[2021-09-03] MEDS: Enoxaparin Sodium 40 MG/0.4 ML SYRINGE SUBCUT (20:36)
--- NOTE | 2021-09-03 21:06 | PC.NURSE ---
obtained blood glucose 188 . RN notified .
[2021-09-03 21:07] LABS: Glucose, Whole Blood 188 mg/dL (60-115)
[2021-09-03] MEDS: Gabapentin 400 MG CAPSULE 800 MG PO (21:21)
[2021-09-03] MEDS: Insulin Lispro 100 UNIT/ML 3 ML VIAL SUBCUT (21:21)
[2021-09-03] MEDS: Insulin Glargine,Hum.rec.anlog 100 UNIT/ML 10 ML VIAL 40 UNIT SUBCUT (21:22)
[2021-09-03] MEDS: Doxepin HCl 10 MG CAPSULE PO (21:57)
[2021-09-03] MEDS: HYDROmorphone HCl 1 MG/ML SYRINGE 0.5 MG IVPUSH (22:53)
--- NOTE | 2021-09-03 23:21 | PC.NURSE ---
WOUND TO LEFT BUTTOCKS EXTENDS FROM COCCYX TO PERINEUM. SKIN IS RED, FIRM WITH MULTIPLE OPEN/SCABBED AREAS. 1PPR0X 12CM LONG BY 5CM WIDE.
[2021-09-04 00:31] VITALS: BP 122/63; PULSE 98; RESP 18; TEMP 36.6; O2SAT 94
[2021-09-04] MEDS: Piperacillin Sodium/Tazobactam 3.375 GM in 0.9 % Sodium Chloride 50 ML IV ×4 (00:45→18:50)
[2021-09-04] MEDS: 0.9 % Sodium Chloride Flush 3 ML SYRINGE IVFLUSH ×2 (00:49→23:51)
[2021-09-04 02:57] VITALS: RESP 14
[2021-09-04] MEDS: HYDROmorphone HCl 1 MG/ML SYRINGE 0.5 MG IVPUSH ×5 (02:57→22:22)
[2021-09-04] MEDS: Levothyroxine Sodium 200 MCG TABLET PO (05:30)
[2021-09-04] MEDS: Benzonatate 100 MG CAPSULE PO (05:31)
[2021-09-04] MEDS: Omeprazole 20 MG CAPSULE.DR PO (05:31)
[2021-09-04 07:19] LABS: MANUAL DIFF FLAG NO
[2021-09-04 07:26] LABS: Basophils Absolute Auto 0.1 X10*3/uL (0.0-0.2); Basophils Percent Auto 0.5 % (0-2); Eosinophils Absolute Auto 0.3 X10*3/uL (0.0-0.4); Eosinophils Percent Auto 1.8 % (0-4); Hematocrit 41.5 % (37.0-47.0); Hemoglobin 14.1 g/dl (12.0-16.0); Imm Gran Abs Auto 0.06 X10*3/uL (0.00-0.03); Imm Gran Pct Auto 0.4 % (0.0-0.4); Lymphocytes Absolute Auto 2.7 X10*3/uL (1.2-4.9); Lymphocytes Percent Auto 20.1 % (20-40); Mean Corpuscular Hemoglobin 29.8 pg (27.0-33.0); Mean Corpuscular Volume 87.7 fL (80.0-98.0); Mean Platelet Volume 10.2 fL (9.4-12.3); Monocytes Absolute Auto 1.2 X10*3/uL (0.1-1.2); Monocytes Percent Auto 8.7 % (2-11); Neutrophils Absolute Auto 9.3 x10*3/uL (2.0-8.3); Neutrophils Percent Auto 68.5 % (45-73); Platelet Count 308 X10*3/uL (160-400); Red Blood Count 4.73 X10*6/uL (4.20-5.50); Red Cell Distribution Width 12.7 % (11.0-16.0); White Blood Count 13.6 X10*3/uL (4.8-10.8)
[2021-09-04 07:47] LABS: Anion Gap 10 (12-20); Blood Urea Nitrogen 7 mg/dL (9-16); Calcium 8.3 mg/dL (8.4-10.2); Carbon Dioxide 26 mmol/L (22-29); Chloride 101 mmol/L (96-108); Creatinine Clr Calc Pharmacy 128.2; Estimated Glomerular Filt Rate > 60; Glucose Random 265 mg/dL (60-115); Potassium 4.4 mmol/L (3.3-5.1); Sodium 133 mmol/L (135-145)
[2021-09-04] MEDS: Cyanocobalamin (Vitamin B-12) 1,000 MCG TABLET 1000 MCG PO (07:50)
[2021-09-04] MEDS: Atorvastatin Calcium 40 MG TABLET PO (07:50)
[2021-09-04] MEDS: Escitalopram Oxalate 20 MG TABLET PO (07:50)
[2021-09-04] MEDS: Losartan Potassium 50 MG TABLET PO (07:50)
[2021-09-04] MEDS: Gabapentin 400 MG CAPSULE 800 MG PO ×3 (07:50→21:14)
[2021-09-04 07:58] LABS: Glucose, Whole Blood 246 mg/dL (60-115)
[2021-09-04] MEDS: Insulin Lispro 100 UNIT/ML 3 ML VIAL SUBCUT ×4 (08:00→21:15)
[2021-09-04] MEDS: vancomycin HCL 1,000 MG in 0.9 % Sodium Chloride 250 ML 270 MG IV ×2 (08:27→21:11)
--- NOTE | 2021-09-04 09:20 | HO.PM.IMPN ---
Subjective Subjective Date of Service: 09/04/21 Interval History: cc: buttock pain, erythema interval history: severe pain Cardiovascular Cardiovascular: Reports no additional cardiovascular complaints Respiratory Respiratory: Reports no additional respiratory complaints Physical Exam Vital Signs: Vital Signs: Last Vital Signs Temp 97.9 F 09/04/21 00:31 Pulse 98 09/04/21 00:31 Resp 14 09/04/21 02:57 BP 122/63 09/04/21 00:31 Pulse Ox 94 09/04/21 00:31 BMI result Body Mass Index 44.7 General: AO X 3, shouting in pain Resp: CTA bilateral, no accessory muscles used CVS: S1,S2,RRR GI: soft, non tender, non distended Neuro: motor grossly intact, alert Psych: appropriate affect, appropriate insight skin: erythema of buttocks Objective Data Active Medications Acetaminophen (Acetaminophen 325 Mg Tablet) 650 mg PO Q6H PRN PRN Reason: Pain, Mild (Pain Scale 1-3) Albuterol Sulfate (Albuterol Sulfate 90 Mcg 8 Gm Inhaler) 2 puff INHALE Q8H PRN PRN Reason: shortness of breath or wheezing Albuterol/Ipratropium (Albuterol/Iprat 2.5/0.5mg 3 Ml Ampul.Neb) 3 ml INHALE Q6H PRN PRN Reason: wheezing Atorvastatin Calcium (Atorvastatin Calcium 40 Mg Tablet) 40 mg PO DAILY [facility] Last Admin: 09/04/21 07:50 Dose: 40 mg Documented by: BRIGETTE Benzonatate (Benzonatate 100 Mg Capsule) 100 mg PO TID PRN PRN Reason: Cough Last Admin: 09/04/21 05:31 Dose: 100 mg Documented by: A[place]IN Cyanocobalamin (Cyanocobalamin (Vitamin B-12) 1,000 Mcg Tablet) 1,000 mcg PO DAILY [facility] Last Admin: 09/04/21 07:50 Dose: 1,000 mcg Documented by: BRIGETTE Dextrose (Dextrose 50 % 25 Gm/50 Ml Vial) 25 gm IVPUSH Q15M PRN; Protocol PRN Reason: per Hypoglycemia Standing Ord. Doxepin HCl (Doxepin Hcl 10 Mg Capsule) 10 mg PO BEDTIME [facility] Last Admin: 09/03/21 21:57 Dose: 10 mg Documented by: MERARY Enoxaparin Sodium (Enoxaparin Sodium 40 Mg/0.4 Ml Syringe) 40 mg SUBCUT Q24H [facility] Last Admin: 09/03/21 20:36 Dose: 40 mg Documented by: MERARY Ergocalciferol (Ergocalciferol (Vitamin D2) 1,250 Mcg Capsule) 1,250 mcg PO Sa [facility] Last Admin: 09/04/21 07:44 Dose: Not Given Documented by: BRIGETTE Non-Admin Reason: See Note Comments: this rn did not have this patient on 09/03/21 when med was due. medication was never administered. Escitalopram Oxalate (Escitalopram Oxalate 20 Mg Tablet) 20 mg PO DAILY [facility] Last Admin: 09/04/21 07:50 Dose: 20 mg Documented by: BRIGETTE Fluticasone Propionate (Fluticasone Propionate 100 Mcg Blst.W.Dev) 1 puff INHALE BID [facility] Last Admin: 09/04/21 08:07 Dose: Not Given Documented by: BRIGETTE Non-Admin Reason: Med Not Available Gabapentin (Gabapentin 400 Mg Capsule) 800 mg PO TID [facility] Last Admin: 09/04/21 07:50 Dose: 800 mg Documented by: BRIGETTE Glucose (Glucose Gel 15 Gm Gel..Gram.) 15 gm PO Q15M PRN; Protocol PRN Reason: per Hypoglycemia Standing Ord. Hydromorphone HCl (Hydromorphone Hcl 1 Mg/Ml Syringe) 0.5 mg IVPUSH Q4H PRN; Protocol PRN Reason: Pain, Severe (Pain Scale 7-10) Last Admin: 09/04/21 08:00 Dose: 0.5 mg Documented by: BRIGETTE Vancomycin HCl 1,000 mg/ (Sodium Chloride) 270 mls @ 270 mls/hr IV Q12H [facility] Last Admin: 09/04/21 08:27 Dose: 270 mls/hr Documented by: BRIGETTE Piperacillin Sod/Tazobactam (Sod 3.375 gm/ Sodium Chloride) 50 mls @ 100 mls/hr IV Q6H [facility] Last Infusion: 09/04/21 08:28 Dose: 0 mls/hr Documented by: BRIGETTE Insulin Glargine (Insulin Glargine,Hum.Rec.Anlog 100 Unit/Ml 10 Ml Vial) 40 unit SUBCUT BEDTIME [facility] Last Admin: 09/03/21 21:22 Dose: 40 unit Documented by: MERARY Insulin Human Lispro (Insulin Lispro 100 Unit/Ml 3 Ml Vial) 0 unit SUBCUT QIDACHS [facility]; Protocol Last Admin: 09/04/21 08:00 Dose: 4 unit Documented by: BRIGETTE Levothyroxine Sodium (Levothyroxine Sodium 200 Mcg Tablet) 200 mcg PO DAILY@0600 [facility] Last Admin: 09/04/21 05:30 Dose: 200 mcg Documented by: [place] Losartan Potassium (Losartan Potassium 50 Mg Tablet) 50 mg PO DAILY [facility]; Protocol Last Admin: 09/04/21 07:50 Dose: 50 mg Documented by: BRIGETTE Melatonin (Melatonin 3 Mg Tablet) 6 mg PO BEDTIME PRN PRN Reason: Insomnia Omeprazole (Omeprazole 20 Mg Capsule.Dr) 20 mg PO DAILY@0630 [facility] Last Admin: 09/04/21 05:31 Dose: 20 mg Documented by: A[place]IN Pharmacy Consult (Consult Rx Perform Med Rec) 1 each MISCELLANE ONCE PRN PRN Reason: Consult order Pharmacy Consult (Consult Rx Vancomycin Dosing) 1 each MISCELLANE DAILY PRN PRN Reason: Consult order Pharmacy Consult (Consult Rx Vancomycin Dosing) 1 each MISCELLANE DAILY PRN PRN Reason: Consult order Senna (Sennosides 8.6 Mg Tablet) 17.2 mg PO BEDTIME PRN PRN Reason: Constipation Sodium Chloride (0.9 % Sodium Chloride Flush 3 Ml Syringe) 3 ml IVFLUSH QSHIFT [facility] Last Admin: 09/04/21 07:51 Dose: Not Given Documented by: BRIGETTE Non-Admin Reason: IV Running Labs CBC & Chem 7: 09/04/21 06:55 09/04/21 06:55 Labs: Laboratory Results - last 24 hr 09/03/21 09/03/21 09/03/21 16:45 16:46 16:46 MCV 86.7 MCH 29.3 MCHC 33.8 RDW 12.6 Plt Count 283 MPV 10.2 Immature Gran % (Auto) 0.4 Neut % (Auto) 74.0 H Lymph % (Auto) 15.5 L [place] % (Auto) 7.5 Eos % (Auto) 2.1 Baso % (Auto) 0.5 Lymph # (Auto) 2.1 [place] # (Auto) 1.0 Eos # (Auto) 0.3 Baso # (Auto) 0.1 Abs Immat Gran (auto) 0.06 H Absolute Neuts (auto) 10.2 H Absolute Nucleated RBC 0.000 Nucleated RBC % (auto) 0.0 Anion Gap 13 Estim Creat Clear Calc 102.6 Estimated GFR > 60 POC Glucose Random Glucose 515 H* Lactic Acid 1.1 Calcium 9.2 Total Bilirubin 0.4 Direct Bilirubin 0.2 AST 12 D ALT 11 Alkaline Phosphatase 134 H D Total Protein 6.6 Albumin 3.3 L COVID-19 (HILDA) COVID-19 Clin Com 09/03/21 09/03/21 09/03/21 18:32 19:14 21:03 MCV MCH MCHC RDW Plt Count MPV Immature Gran % (Auto) Neut % (Auto) Lymph % (Auto) [place] % (Auto) Eos % (Auto) Baso % (Auto) Lymph # (Auto) [place] # (Auto) Eos # (Auto) Baso # (Auto) Abs Immat Gran (auto) Absolute Neuts (auto) Absolute Nucleated RBC Nucleated RBC % (auto) Anion Gap Estim Creat Clear Calc Estimated GFR POC Glucose 237 H 188 H Random Glucose Lactic Acid Calcium Total Bilirubin Direct Bilirubin AST ALT Alkaline Phosphatase Total Protein Albumin COVID-19 (HILDA) Negative COVID-19 Clin Com See Note 09/04/21 09/04/21 09/04/21 06:55 06:55 07:55 MCV 87.7 MCH 29.8 MCHC 34.0 RDW 12.7 Plt Count 308 MPV 10.2 Immature Gran % (Auto) 0.4 Neut % (Auto) 68.5 Lymph % (Auto) 20.1 [place] % (Auto) 8.7 Eos % (Auto) 1.8 Baso % (Auto) 0.5 Lymph # (Auto) 2.7 [place] # (Auto) 1.2 Eos # (Auto) 0.3 Baso # (Auto) 0.1 Abs Immat Gran (auto) 0.06 H Absolute Neuts (auto) 9.3 H Absolute Nucleated RBC 0.000 Nucleated RBC % (auto) 0.0 Anion Gap 10 L Estim Creat Clear Calc 128.2 Estimated GFR > 60 POC Glucose 246 H Random Glucose 265 H Lactic Acid Calcium 8.3 L D Total Bilirubin Direct Bilirubin AST ALT Alkaline Phosphatase Total Protein Albumin COVID-19 (HILDA) COVID-19 Clin Com Assessment and Plan (1) Cellulitis: Status: Acute Plan 50F presented with perianal erythema and pain perianal cellulitis will cover gram positives including MRSA and gram negatives and anaerobes due to proximity to anus follow up ID, cultures DM with hyperglycemia basal bolus insulin hyopthyroid synthroid htn losartan, hld statin reason for continued hospitalization: severe pain, iv abx, risk for decompensation to sepsis due to DM Quality Stroke Does the patient have a stroke diagnosis?: No VTE Prior VTE?: No VTE Risk Level:: Medical - moderate - high VTE Device Contraindication: Treatment Not Indicated VTE Drug Contraindication: N/A - Med Ordered
[2021-09-04 13:54] LABS: Glucose, Whole Blood 330 mg/dL (60-115)
[2021-09-04 14:28] VITALS: BP 149/69; PULSE 89; RESP 15; TEMP 36.3; O2SAT 95
[2021-09-04 17:28] VITALS: BP 158/69; PULSE 84; RESP 18; TEMP 36.7; O2SAT 96
[2021-09-04 17:30] LABS: Glucose, Whole Blood 359 mg/dL (60-115)
[2021-09-04 20:20] LABS: Glucose, Whole Blood 342 mg/dL (60-115)
[2021-09-04] MEDS: Enoxaparin Sodium 40 MG/0.4 ML SYRINGE SUBCUT (21:14)
[2021-09-04] MEDS: Insulin Glargine,Hum.rec.anlog 100 UNIT/ML 10 ML VIAL 40 UNIT SUBCUT (21:15)
[2021-09-04] MEDS: Melatonin 3 MG TABLET 6 MG PO (21:21)
[2021-09-04] MEDS: Doxepin HCl 10 MG CAPSULE PO (21:28)
[2021-09-04] MEDS: Sennosides 8.6 MG TABLET 17.2 MG PO (22:29)
[2021-09-04 23:56] VITALS: BP 157/83; PULSE 87; RESP 19; TEMP 36.9; O2SAT 97
[2021-09-05] VITALS (8 sets, daily range): BP systolic 142–165; BP diastolic 65–84; PULSE 68–84; RESP 14–20; TEMP 36.2–36.8; O2SAT 93–96
[2021-09-05] MEDS: HYDROmorphone HCl 1 MG/ML SYRINGE 0.5 MG IVPUSH ×3 (00:48→10:17)
[2021-09-05] MEDS: Piperacillin Sodium/Tazobactam 3.375 GM in 0.9 % Sodium Chloride 50 ML IV ×4 (00:51→18:44)
--- NOTE | 2021-09-05 04:49 | PC.NURSE ---
Assumed care at 2300. Patient assessed. Pt is teary and c/o pain. Pt received PRN dose of dilaudid given shortly before assuming care. Pt notes that the pain med usually helps but it didn't this time. This RN flushed IV, pt pulled back with pain. IV removed and new one placed. Dr. Farmer notified about patient's c/o of pain and told this RN to give next dose of PRN dilaudid early. Dose administered early. At reassessment, patient states pain is much better after that dose . Will continue to monitor.
[2021-09-05 06:18] LABS: Hematocrit 41.9 % (37.0-47.0); Hemoglobin 14.1 g/dl (12.0-16.0); Mean Corpuscular HGB Conc 33.7 g/dl (31.0-35.0); Mean Corpuscular Hemoglobin 29.6 pg (27.0-33.0); Mean Platelet Volume 9.8 fL (9.4-12.3); Platelet Count 315 X10*3/uL (160-400); Red Blood Count 4.76 X10*6/uL (4.20-5.50); Red Cell Distribution Width 12.6 % (11.0-16.0); White Blood Count 11.2 X10*3/uL (4.8-10.8)
[2021-09-05] MEDS: Omeprazole 20 MG CAPSULE.DR PO (06:22)
[2021-09-05 06:41] LABS: Vancomycin Trough 5.4 mcg/mL (10.0-20.0)
[2021-09-05 06:42] LABS: Anion Gap 9 (12-20); Blood Urea Nitrogen 9 mg/dL (9-16); Calcium 8.5 mg/dL (8.4-10.2); Carbon Dioxide 29 mmol/L (22-29); Chloride 100 mmol/L (96-108); Creatinine Clr Calc Pharmacy 117.8; Estimated Glomerular Filt Rate > 60; Glucose Fasting 352 mg/dL (60-99); Potassium 4.3 mmol/L (3.3-5.1); Sodium 134 mmol/L (135-145)
[2021-09-05 07:32] LABS: Glucose, Whole Blood 333 mg/dL (60-115)
[2021-09-05] MEDS: Insulin Lispro 100 UNIT/ML 3 ML VIAL SUBCUT ×4 (07:48→21:24)
[2021-09-05] MEDS: Cyanocobalamin (Vitamin B-12) 1,000 MCG TABLET 1000 MCG PO (07:48)
[2021-09-05] MEDS: Atorvastatin Calcium 40 MG TABLET PO (07:48)
[2021-09-05] MEDS: Gabapentin 400 MG CAPSULE 800 MG PO ×3 (07:48→20:02)
[2021-09-05] MEDS: Escitalopram Oxalate 20 MG TABLET PO (07:48)
[2021-09-05] MEDS: vancomycin HCL 1,000 MG in 0.9 % Sodium Chloride 250 ML 270 MG IV (07:49)
[2021-09-05] MEDS: Losartan Potassium 50 MG TABLET PO (07:49)
--- NOTE | 2021-09-05 08:10 | HE.PHANOTE ---
VANCOMYCIN ADDENDUM: LEVEL CAME BACK AT 5.4 AFTER A 2 GRAM LOAD AND 2 DOSES OF 1 GRAM, INCREASED DOSE TO 1500 MG Q 12 HOURS WILL RECHECK LEVEL AFTER 2 DOSES
--- NOTE | 2021-09-05 10:03 | HO.PM.IMPN ---
Subjective Subjective Date of Service: 09/05/21 Interval History: cc: perianal erythema interval history: painful when lying on it Respiratory Respiratory: Reports no additional respiratory complaints Gastrointestinal Gastrointestinal: Reports no additional gastrointestinal complaints Physical Exam Vital Signs: Vital Signs: Last Vital Signs Temp 97.9 F 09/05/21 07:54 Pulse 76 09/05/21 07:54 Resp 18 09/05/21 07:54 BP 148/72 H 09/05/21 07:54 Pulse Ox 94 09/05/21 07:54 BMI result Body Mass Index 44.7 General: AO X 3, shouting in pain Resp:? CTA bilateral, no accessory muscles used CVS: S1,S2,RRR GI: soft, non tender, non distended Neuro:? motor grossly intact, alert Psych: appropriate affect, appropriate insight? skin: erythema of buttocks Objective Data Active Medications Acetaminophen (Acetaminophen 325 Mg Tablet) 650 mg PO Q6H PRN PRN Reason: Pain, Mild (Pain Scale 1-3) Albuterol Sulfate (Albuterol Sulfate 90 Mcg 8 Gm Inhaler) 2 puff INHALE Q8H PRN PRN Reason: shortness of breath or wheezing Albuterol/Ipratropium (Albuterol/Iprat 2.5/0.5mg 3 Ml Ampul.Neb) 3 ml INHALE Q6H PRN PRN Reason: wheezing Atorvastatin Calcium (Atorvastatin Calcium 40 Mg Tablet) 40 mg PO DAILY COUNTS INCLUDE 234 BEDS AT THE [facility] Last Admin: 09/05/21 07:48 Dose: 40 mg Documented by: MIRANDA Benzonatate (Benzonatate 100 Mg Capsule) 100 mg PO TID PRN PRN Reason: Cough Last Admin: 09/04/21 05:31 Dose: 100 mg Documented by: AUSTIN Cyanocobalamin (Cyanocobalamin (Vitamin B-12) 1,000 Mcg Tablet) 1,000 mcg PO DAILY COUNTS INCLUDE 234 BEDS AT THE [facility] Last Admin: 09/05/21 07:48 Dose: 1,000 mcg Documented by: MIRANDA Dextrose (Dextrose 50 % 25 Gm/50 Ml Vial) 25 gm IVPUSH Q15M PRN; Protocol PRN Reason: per Hypoglycemia Standing Ord. Doxepin HCl (Doxepin Hcl 10 Mg Capsule) 10 mg PO BEDTIME COUNTS INCLUDE 234 BEDS AT THE [facility] Last Admin: 09/04/21 21:28 Dose: 10 mg Documented by: LANI Enoxaparin Sodium (Enoxaparin Sodium 40 Mg/0.4 Ml Syringe) 40 mg SUBCUT Q24H COUNTS INCLUDE 234 BEDS AT THE [facility] Last Admin: 09/04/21 21:14 Dose: 40 mg Documented by: LANI Ergocalciferol (Ergocalciferol (Vitamin D2) 1,250 Mcg Capsule) 1,250 mcg PO Sa COUNTS INCLUDE 234 BEDS AT THE [facility] Last Admin: 09/04/21 07:44 Dose: Not Given Documented by: BRIGETTE Non-Admin Reason: See Note Comments: this rn did not have this patient on 09/03/21 when med was due. medication was never administered. Escitalopram Oxalate (Escitalopram Oxalate 20 Mg Tablet) 20 mg PO DAILY COUNTS INCLUDE 234 BEDS AT THE [facility] Last Admin: 09/05/21 07:48 Dose: 20 mg Documented by: MIRANDA Fluticasone Propionate (Fluticasone Propionate 100 Mcg Blst.W.Dev) 1 puff INHALE BID COUNTS INCLUDE 234 BEDS AT THE [facility] Last Admin: 09/05/21 07:49 Dose: Not Given Documented by: ASHLEY Non-Admin Reason: Med Not Available Gabapentin (Gabapentin 400 Mg Capsule) 800 mg PO TID COUNTS INCLUDE 234 BEDS AT THE [facility] Last Admin: 09/05/21 07:48 Dose: 800 mg Documented by: MIRANDA Glucose (Glucose Gel 15 Gm Gel..Gram.) 15 gm PO Q15M PRN; Protocol PRN Reason: per Hypoglycemia Standing Ord. Hydromorphone HCl (Hydromorphone Hcl 1 Mg/Ml Syringe) 0.5 mg IVPUSH Q4H PRN; Protocol PRN Reason: Pain, Severe (Pain Scale 7-10) Last Admin: 09/05/21 04:41 Dose: 0.5 mg Documented by: LATRELL Piperacillin Sod/Tazobactam (Sod 3.375 gm/ Sodium Chloride) 50 mls @ 100 mls/hr IV Q6H COUNTS INCLUDE 234 BEDS AT THE [facility] Last Infusion: 09/05/21 07:04 Dose: 0 mls/hr Documented by: LATRELL Vancomycin HCl 1,500 mg/ (Sodium Chloride) 500 mls @ 333.333 mls/hr IV Q12H COUNTS INCLUDE 234 BEDS AT THE [facility] Insulin Glargine (Insulin Glargine,Hum.Rec.Anlog 100 Unit/Ml 10 Ml Vial) 40 unit SUBCUT BEDTIME COUNTS INCLUDE 234 BEDS AT THE [facility] Last Admin: 09/04/21 21:15 Dose: 40 unit Documented by: LANI Insulin Human Lispro (Insulin Lispro 100 Unit/Ml 3 Ml Vial) 0 unit SUBCUT QIDACHS COUNTS INCLUDE 234 BEDS AT THE [facility]; Protocol Last Admin: 09/05/21 07:48 Dose: 8 unit Documented by: MIRANDA Levothyroxine Sodium (Levothyroxine Sodium 200 Mcg Tablet) 200 mcg PO DAILY@0600 COUNTS INCLUDE 234 BEDS AT THE [facility] Last Admin: 09/05/21 06:30 Dose: Not Given Documented by: LATRELL Non-Admin Reason: not available in ED overflow pyxis Losartan Potassium (Losartan Potassium 50 Mg Tablet) 50 mg PO DAILY COUNTS INCLUDE 234 BEDS AT THE [facility]; Protocol Last Admin: 09/05/21 07:49 Dose: 50 mg Documented by: MIRANDA Melatonin (Melatonin 3 Mg Tablet) 6 mg PO BEDTIME PRN PRN Reason: Insomnia Last Admin: 09/04/21 21:21 Dose: 6 mg Documented by: LANI Omeprazole (Omeprazole 20 Mg Capsule.) 20 mg PO DAILY@0630 COUNTS INCLUDE 234 BEDS AT THE [facility] Last Admin: 09/05/21 06:22 Dose: 20 mg Documented by: LATRELL Pharmacy Consult (Consult Rx Perform Med Rec) 1 each MISCELLANE ONCE PRN PRN Reason: Consult order Pharmacy Consult (Consult Rx Vancomycin Dosing) 1 each MISCELLANE DAILY PRN PRN Reason: Consult order Pharmacy Consult (Consult Rx Vancomycin Dosing) 1 each MISCELLANE DAILY PRN PRN Reason: Consult order Senna (Sennosides 8.6 Mg Tablet) 17.2 mg PO BEDTIME PRN PRN Reason: Constipation Last Admin: 09/04/21 22:29 Dose: 17.2 mg Documented by: LANI Sodium Chloride (0.9 % Sodium Chloride Flush 3 Ml Syringe) 3 ml IVFLUSH QSHIFT COUNTS INCLUDE 234 BEDS AT THE [facility] Last Admin: 09/05/21 07:56 Dose: Not Given Documented by: MIRANDA Non-Admin Reason: IV Running Labs CBC & Chem 7: 09/05/21 06:09 09/05/21 06:09 Labs: Laboratory Results - last 24 hr 09/04/21 09/04/21 09/04/21 13:49 17:27 20:14 MCV MCH MCHC RDW Plt Count MPV Absolute Nucleated RBC Nucleated RBC % (auto) Anion Gap Estim Creat Clear Calc Estimated GFR POC Glucose 330 H 359 H* 342 H Fasting Glucose Calcium Vancomycin Trough 09/05/21 09/05/21 09/05/21 06:09 06:09 06:09 MCV 88.0 MCH 29.6 MCHC 33.7 RDW 12.6 Plt Count 315 MPV 9.8 Absolute Nucleated RBC 0.000 Nucleated RBC % (auto) 0.0 Anion Gap 9 L Estim Creat Clear Calc 117.8 Estimated GFR > 60 POC Glucose Fasting Glucose 352 H* Calcium 8.5 Vancomycin Trough 5.4 L 09/05/21 07:29 MCV MCH MCHC RDW Plt Count MPV Absolute Nucleated RBC Nucleated RBC % (auto) Anion Gap Estim Creat Clear Calc Estimated GFR POC Glucose 333 H Fasting Glucose Calcium Vancomycin Trough Microbiology Microbiology Results: Microbiology 09/03/21 17:01 Blood Culture - Preliminary Blood - Venous No growth after 24 hours. 09/03/21 16:47 Blood Culture - Preliminary Blood - Venous No growth after 24 hours. Assessment and Plan (1) Cellulitis: Status: Acute Plan 50F presented with perianal erythema and pain perianal cellulitis will cover gram positives including MRSA and gram negatives and anaerobes due to proximity to anus follow up ID blood cultures negative so far DM with hyperglycemia basal bolus insulin low carb diet hyopthyroid synthroid htn losartan, hld statin reason for continued hospitalization: severe pain, iv abx, risk for decompensation to sepsis due to DM Quality Stroke Does the patient have a stroke diagnosis?: No VTE Prior VTE?: No VTE Risk Level:: Medical - moderate - high VTE Device Contraindication: Treatment Not Indicated VTE Drug Contraindication: N/A - Med Ordered
--- NOTE | 2021-09-05 12:24 | MHC.CM.PN ---
met with pt in ed pt ruby es with son is vax x2 has own transportaion home she antixcapatees neediung a vna when dcd and would beneift from [facility]oping to [facility] where she has gone in the past dc plan vna and wound [facility] follow uyp
[2021-09-05 12:41] LABS: Glucose, Whole Blood 250 mg/dL (60-115)
--- NOTE | 2021-09-05 12:46 | PC.NURSE ---
POC OBTAINED WITH RESULTS OF 250 REPORTED TO RN.
--- NOTE | 2021-09-05 14:15 | P.CNID_ITS ---
History of Present Illness Data of Consult Service Date: 09/05/21 Requesting physician: Jordan Mccoy Primary Care Provider: Marissa Ward MD HPI Reason for consult: buttock cellulitis She presents with redness and swelling left buttock extending frontally toward perineal area. She has had chills. CT scan shows cellulitis. She was started on IV antibiotics. [facility] Past Medical History Medical History Anxiety B12 deficiency Depression Diabetes Hyperlipidemia Migraines Morbid obesity Sciatic leg pain Family History Family History Father HTN (hypertension) CVD (cardiovascular disease) Diabetes mellitus Mental health disorder Mother Diabetes mellitus Uterine cancer COPD (chronic obstructive pulmonary disease) Mental health disorder Maternal Grandmother Breast cancer Paternal Aunt Breast cancer Brother No problems noted. Sister Substance use disorder Mental health disorder Sister No problems noted. Sister No problems noted. Daughter No problems noted. Son No problems noted. Son No problems noted. Son No problems noted. Son No problems noted. Son No problems noted. Son No problems noted. Surgical History Surgical History H/O elbow surgery H/O thyroidectomy Hx of tubal ligation Social History Social History Housing: Apartment Alcohol intake: never Patient Tobacco Use Status: Never used Tobacco Cigarette Packs Per Day: 1 e-Cigarette/Vaping Use: Never Used Second Hand Smoke Exposure: Yes service: No Current occupational status: employed Current occupation: [employer] Allergies Allergy/AdvReac Type Severity Reaction Status Date / Time doxycycline [DOXYCYCLINE] Allergy Severe THROAT Verified 09/03/21 16:32 SWELLING clindamycin [CLINDAMYCIN] Allergy Intermediate CHEST PAIN Verified 09/03/21 16:32 Sulfa (Sulfonamide Allergy Unknown makes her Verified 09/03/21 16:32 Antibiotics) sick, vomit trimethoprim [From BACTRIM] Allergy Unknown NAUSEA & Verified 09/03/21 16:32 VOMITING sulfamethoxazole AdvReac Mild NAUSEA & Verified 09/03/21 16:32 [From BACTRIM] VOMITING lisinopril Allergy Unknown headaches Uncoded 07/18/21 14:49 Active Medications: Current Medications Acetaminophen (Acetaminophen 325 Mg Tablet) 650 mg PO Q6H PRN PRN Reason: Pain, Mild (Pain Scale 1-3) Albuterol Sulfate (Albuterol Sulfate 90 Mcg 8 Gm Inhaler) 2 puff INHALE Q8H PRN PRN Reason: shortness of breath or wheezing Albuterol/Ipratropium (Albuterol/Iprat 2.5/0.5mg 3 Ml Ampul.Neb) 3 ml INHALE Q6H PRN PRN Reason: wheezing Atorvastatin Calcium (Atorvastatin Calcium 40 Mg Tablet) 40 mg PO DAILY [facility] Last Admin: 09/05/21 07:48 Dose: 40 mg Documented by: Benzonatate (Benzonatate 100 Mg Capsule) 100 mg PO TID PRN PRN Reason: Cough Last Admin: 09/04/21 05:31 Dose: 100 mg Documented by: Cyanocobalamin (Cyanocobalamin (Vitamin B-12) 1,000 Mcg Tablet) 1,000 mcg PO DAILY [facility] Last Admin: 09/05/21 07:48 Dose: 1,000 mcg Documented by: Dextrose (Dextrose 50 % 25 Gm/50 Ml Vial) 25 gm IVPUSH Q15M PRN; Protocol PRN Reason: per Hypoglycemia Standing Ord. Doxepin HCl (Doxepin Hcl 10 Mg Capsule) 10 mg PO BEDTIME [facility] Last Admin: 09/04/21 21:28 Dose: 10 mg Documented by: Enoxaparin Sodium (Enoxaparin Sodium 40 Mg/0.4 Ml Syringe) 40 mg SUBCUT Q24H [facility] Last Admin: 09/04/21 21:14 Dose: 40 mg Documented by: Ergocalciferol (Ergocalciferol (Vitamin D2) 1,250 Mcg Capsule) 1,250 mcg PO Sa [facility] Last Admin: 09/04/21 07:44 Dose: Not Given Documented by: Escitalopram Oxalate (Escitalopram Oxalate 20 Mg Tablet) 20 mg PO DAILY [facility] Last Admin: 09/05/21 07:48 Dose: 20 mg Documented by: Fluticasone Propionate (Fluticasone Propionate 100 Mcg Blst.W.Dev) 1 puff INHALE BID [facility] Last Admin: 09/05/21 07:49 Dose: Not Given Documented by: Gabapentin (Gabapentin 400 Mg Capsule) 800 mg PO TID [facility] Last Admin: 09/05/21 07:48 Dose: 800 mg Documented by: Glucose (Glucose Gel 15 Gm Gel..Gram.) 15 gm PO Q15M PRN; Protocol PRN Reason: per Hypoglycemia Standing Ord. Hydromorphone HCl (Hydromorphone Hcl 0.5 Mg/0.5 Ml Syringe) 0.5 mg IVPUSH Q3H PRN; Protocol PRN Reason: Pain, Severe (Pain Scale 7-10) Piperacillin Sod/Tazobactam (Sod 3.375 gm/ Sodium Chloride) 50 mls @ 100 mls/hr IV Q6H [facility] Last Infusion: 09/05/21 14:10 Dose: Infused Documented by: Vancomycin HCl 1,500 mg/ (Sodium Chloride) 500 mls @ 333.333 mls/hr IV Q12H [facility] Insulin Glargine (Insulin Glargine,Hum.Rec.Anlog 100 Unit/Ml 10 Ml Vial) 40 unit SUBCUT BEDTIME [facility] Last Admin: 09/04/21 21:15 Dose: 40 unit Documented by: Insulin Human Lispro (Insulin Lispro 100 Unit/Ml 3 Ml Vial) 0 unit SUBCUT QIDACHS [facility]; Protocol Last Admin: 09/05/21 13:31 Dose: 4 unit Documented by: Levothyroxine Sodium (Levothyroxine Sodium 200 Mcg Tablet) 200 mcg PO DAILY@0600 [facility] Last Admin: 09/05/21 06:30 Dose: Not Given Documented by: Losartan Potassium (Losartan Potassium 50 Mg Tablet) 50 mg PO DAILY [facility]; Protocol Last Admin: 09/05/21 07:49 Dose: 50 mg Documented by: Melatonin (Melatonin 3 Mg Tablet) 6 mg PO BEDTIME PRN PRN Reason: Insomnia Last Admin: 09/04/21 21:21 Dose: 6 mg Documented by: Omeprazole (Omeprazole 20 Mg Capsule.) 20 mg PO DAILY@0630 [facility] Last Admin: 09/05/21 06:22 Dose: 20 mg Documented by: Pharmacy Consult (Consult Rx Perform Med Rec) 1 each MISCELLANE ONCE PRN PRN Reason: Consult order Pharmacy Consult (Consult Rx Vancomycin Dosing) 1 each MISCELLANE DAILY PRN PRN Reason: Consult order Pharmacy Consult (Consult Rx Vancomycin Dosing) 1 each MISCELLANE DAILY PRN PRN Reason: Consult order Senna (Sennosides 8.6 Mg Tablet) 17.2 mg PO BEDTIME PRN PRN Reason: Constipation Last Admin: 09/04/21 22:29 Dose: 17.2 mg Documented by: Sodium Chloride (0.9 % Sodium Chloride Flush 3 Ml Syringe) 3 ml IVFLUSH QSHIFT [facility] Last Admin: 09/05/21 07:56 Dose: Not Given Documented by: Home Medications Medication Instructions Recorded Confirmed Last Taken Type escitalopram oxalate 20 mg tablet 20 mg PO DAILY 09/13/20 09/03/21 Unknown History doxepin 10 mg capsule 10 - 20 mg PO BEDTIME 01/04/21 09/03/21 Unknown History insulin degludec 200 unit/mL (3 95 unit SUBCUT BEDTIME 09/04/21 09/04/21 Unknown History mL) subcutaneous pen (Tresiba FlexTouch U-200 insulin) insulin lispro 100 unit/mL See Rx Instructions .ROUTE .COMPLEX 09/04/21 09/04/21 Unknown History subcutaneous pen Physical Exam Vital Signs: Vital Signs: Last Vital Signs Temp 97.9 F 09/05/21 07:54 Pulse 76 09/05/21 07:54 Resp 18 09/05/21 07:54 BP 148/72 H 09/05/21 07:54 Pulse Ox 94 09/05/21 07:54 BMI result Body Mass Index 44.7 Const: General: cooperative Eyes: General: appearance normal, both eyes and all related structures Pupils: Equal, round and reactive pupils present Cardio: Rate: regular rate Rhythm: regular rhythm GI: Palpation (GI): Soft to palpation and nontender : Other: left buttock swelling and extending frontally to swollen labia Neuro: Cranial nerves: Yes Equal, round and reactive pupils present Results Labs CBC & Chem 7: 09/05/21 06:09 09/05/21 06:09 Labs: Short CBC 09/05/21 Range/Units 06:09 WBC 11.2 H (4.8-10.8) X10*3/uL Hgb 14.1 (12.0-16.0) g/dl Hct 41.9 (37.0-47.0) % Plt Count 315 (160-400) X10*3/uL BMP 09/05/21 06:09 Sodium 134 L Potassium 4.3 Chloride 100 Carbon Dioxide 29 BUN 9 Creatinine 0.74 Calcium 8.5 Microbiology Microbiology Results: Microbiology 09/03/21 17:01 Blood - Venous Blood Culture - Preliminary No growth after 24 hours. 09/03/21 16:47 Blood - Venous Blood Culture - Preliminary No growth after 24 hours. Assessment and Plan (1) Abscess, gluteal cleft: Status: Acute There is very indurated area and elevated glucose. There is concern over developing necrotizing fasciitis. She may have multiple organisms but lactate is unremarkable so may just be superficial cellulitis Plan Continue Vancomycin and Zosyn for now. .Would have patient see Surgery ensure no deeper tissue concerns with hyperglycemia,
[2021-09-05] MEDS: HYDROmorphone HCl 0.5 MG/0.5 ML SYRINGE IVPUSH ×3 (14:18→21:22)
[2021-09-05] MEDS: 0.9 % Sodium Chloride Flush 3 ML SYRINGE IVFLUSH ×2 (14:19→20:02)
--- NOTE | 2021-09-05 15:32 | P.CONGS_ITS ---
History of Present Illness Consult details Consult date: 09/05/21 Narrative: [age] year old female referred for gluteal cellulitis. She was admitted to the hospital 2 days ago because of redness and induration on the left gluteal area near the cleft. She says that this started over a week prior to her admission. She thinks that this started as a pimple like lesion that seemed wor se. She has had a wide area of induration involving the area just lateral to the gluteal cleft and the perianal region on the left. She denies any drainage. She describes pain and tenderness. She does have history of a similar problem to a lesser extent on the right gluteal area last year. She had been on IV antibiotics since admission without any significant improvement his hands I was consulted today. Review of Systems Constitutional: Constitutional: Denies chills and Denies fever(s) Cardiovascular: Cardiovascular: Denies chest pain, Denies dyspnea and Denies dyspnea on exertion Respiratory: Respiratory: Denies cough, Denies dyspnea and Denies dyspnea on exertion Gastrointestinal: Gastrointestinal: Denies hematochezia and Denies change in bowel habits Genitourinary: Genitourinary: Denies hematuria Musculoskeletal: Musculoskeletal: Denies back pain and Denies limited range of motion Neurologic: Denies focal weakness and Denies convulsions Psychiatric: Psychiatric: Denies depression and Denies mood swings PMFSH Past Medical History Medical History (Updated 09/05/21 @ 15:35 by Steven Trent MD) Anxiety B12 deficiency Cellulitis of buttock Depression Diabetes Hyperlipidemia Migraines Morbid obesity Sciatic leg pain Family History Family History Father HTN (hypertension) CVD (cardiovascular disease) Diabetes mellitus Mental health disorder Mother Diabetes mellitus Uterine cancer COPD (chronic obstructive pulmonary disease) Mental health disorder Maternal Grandmother Breast cancer Paternal Aunt Breast cancer Brother No problems noted. Sister Substance use disorder Mental health disorder Sister No problems noted. Sister No problems noted. Daughter No problems noted. Son No problems noted. Son No problems noted. Son No problems noted. Son No problems noted. Son No problems noted. Son No problems noted. Surgical History Surgical History H/O elbow surgery H/O thyroidectomy Hx of tubal ligation Social History Social History Household Members: Family Housing: Apartment Do you presently have visiting nurse or other home services: No Alcohol intake: never Patient Tobacco Use Status: Current everyday Tobacco user Tobacco use type: Cigarette Cigarette Packs Per Day: 1 Cigarettes Per Day: 3 Years Smoked: 20 e-Cigarette/Vaping Use: Currently Using Second Hand Smoke Exposure: No service: No Current occupational status: employed Current occupation: [employer] Meds Allergies Allergy/AdvReac Type Severity Reaction Status Date / Time doxycycline [DOXYCYCLINE] Allergy Severe THROAT Verified 09/06/21 12:09 SWELLING clindamycin [CLINDAMYCIN] Allergy Intermediate CHEST PAIN Verified 09/06/21 12:09 Sulfa (Sulfonamide Allergy Unknown makes her Verified 09/06/21 12:09 Antibiotics) sick, vomit trimethoprim [From BACTRIM] Allergy Unknown NAUSEA & Verified 09/06/21 12:09 VOMITING sulfamethoxazole AdvReac Mild NAUSEA & Verified 09/06/21 12:09 [From BACTRIM] VOMITING lisinopril Allergy Unknown headaches Uncoded 07/18/21 14:49 Active Medications: Current Medications Acetaminophen (Acetaminophen 325 Mg Tablet) 650 mg PO Q6H PRN PRN Reason: Pain, Mild (Pain Scale 1-3) Albuterol Sulfate (Albuterol Sulfate 90 Mcg 8 Gm Inhaler) 2 puff INHALE Q8H PRN PRN Reason: shortness of breath or wheezing Albuterol/Ipratropium (Albuterol/Iprat 2.5/0.5mg 3 Ml Ampul.Neb) 3 ml INHALE Q6H PRN PRN Reason: wheezing Atorvastatin Calcium (Atorvastatin Calcium 40 Mg Tablet) 40 mg PO DAILY [facility] Last Admin: 09/05/21 07:48 Dose: 40 mg Documented by: Benzonatate (Benzonatate 100 Mg Capsule) 100 mg PO TID PRN PRN Reason: Cough Last Admin: 09/04/21 05:31 Dose: 100 mg Documented by: Cyanocobalamin (Cyanocobalamin (Vitamin B-12) 1,000 Mcg Tablet) 1,000 mcg PO DAILY [facility] Last Admin: 09/05/21 07:48 Dose: 1,000 mcg Documented by: Dextrose (Dextrose 50 % 25 Gm/50 Ml Vial) 25 gm IVPUSH Q15M PRN; Protocol PRN Reason: per Hypoglycemia Standing Ord. Doxepin HCl (Doxepin Hcl 10 Mg Capsule) 10 mg PO BEDTIME [facility] Last Admin: 09/04/21 21:28 Dose: 10 mg Documented by: Enoxaparin Sodium (Enoxaparin Sodium 40 Mg/0.4 Ml Syringe) 40 mg SUBCUT Q24H [facility] Last Admin: 09/04/21 21:14 Dose: 40 mg Documented by: Ergocalciferol (Ergocalciferol (Vitamin D2) 1,250 Mcg Capsule) 1,250 mcg PO Sa [facility] Last Admin: 09/04/21 07:44 Dose: Not Given Documented by: Escitalopram Oxalate (Escitalopram Oxalate 20 Mg Tablet) 20 mg PO DAILY [facility] Last Admin: 09/05/21 07:48 Dose: 20 mg Documented by: Fluticasone Propionate (Fluticasone Propionate 100 Mcg Blst.W.Dev) 1 puff INHA LE BID [facility] Last Admin: 09/05/21 07:49 Dose: Not Given Documented by: Gabapentin (Gabapentin 400 Mg Capsule) 800 mg PO TID [facility] Last Admin: 09/05/21 14:20 Dose: 800 mg Documented by: Glucose (Glucose Gel 15 Gm Gel..Gram.) 15 gm PO Q15M PRN; Protocol PRN Reason: per Hypoglycemia Standing Ord. Hydromorphone HCl (Hydromorphone Hcl 0.5 Mg/0.5 Ml Syringe) 0.5 mg IVPUSH Q3H PRN; Protocol PRN Reason: Pain, Severe (Pain Scale 7-10) Last Admin: 09/05/21 14:18 Dose: 0.5 mg Documented by: Piperacillin Sod/Tazobactam (Sod 3.375 gm/ Sodium Chloride) 50 mls @ 100 mls/hr IV Q6H [facility] Last Infusion: 09/05/21 14:10 Dose: Infused Documented by: Vancomycin HCl 1,500 mg/ (Sodium Chloride) 500 mls @ 333.333 mls/hr IV Q12H [facility] Insulin Glargine (Insulin Glargine,Hum.Rec.Anlog 100 Unit/Ml 10 Ml Vial) 40 unit SUBCUT BEDTIME [facility] Last Admin: 09/04/21 21:15 Dose: 40 unit Documented by: Insulin Human Lispro (Insulin Lispro 100 Unit/Ml 3 Ml Vial) 0 unit SUBCUT QIDACHS [facility]; Protocol Last Admin: 09/05/21 13:31 Dose: 4 unit Documented by: Levothyroxine Sodium (Levothyroxine Sodium 200 Mcg Tablet) 200 mcg PO DAILY@0600 [facility] Last Admin: 09/05/21 06:30 Dose: Not Given Documented by: Losartan Potassium (Losartan Potassium 50 Mg Tablet) 50 mg PO DAILY [facility]; Protocol Last Admin: 09/05/21 07:49 Dose: 50 mg Documented by: Melatonin (Melatonin 3 Mg Tablet) 6 mg PO BEDTIME PRN PRN Reason: Insomnia Last Admin: 09/04/21 21:21 Dose: 6 mg Documented by: Omeprazole (Omeprazole 20 Mg Capsule.Dr) 20 mg PO DAILY@0630 [facility] Last Admin: 09/05/21 06:22 Dose: 20 mg Documented by: Pharmacy Consult (Consult Rx Perform Med Rec) 1 each MISCELLANE ONCE PRN PRN Reason: Consult order Pharmacy Consult (Consult Rx Vancomycin Dosing) 1 each MISCELLANE DAILY PRN PRN Reason: Consult order Pharmacy Consult (Consult Rx Vancomycin Dosing) 1 each MISCELLANE DAILY PRN PRN Reason: Consult order Senna (Sennosides 8.6 Mg Tablet) 17.2 mg PO BEDTIME PRN PRN Reason: Constipation Last Admin: 09/04/21 22:29 Dose: 17.2 mg Documented by: Sodium Chloride (0.9 % Sodium Chloride Flush 3 Ml Syringe) 3 ml IVFSH [facility] Last Admin: 09/05/21 14:19 Dose: 3 ml Documented by: Home Medications Medication Instructions Recorded Confirmed Last Taken Type escitalopram oxalate 20 mg tablet 20 mg PO DAILY 09/13/20 09/03/21 Unknown History doxepin 10 mg capsule 10 - 20 mg PO BEDTIME 01/04/21 09/03/21 Unknown History insulin degludec 200 unit/mL (3 95 unit SUBCUT BEDTIME 09/04/21 09/04/21 Unknown History mL) subcutaneous pen (Tresiba FlexTouch U-200 insulin) insulin lispro 100 unit/mL See Rx Instructions .ROUTE .COMPLEX 09/04/21 09/04/21 Unknown History subcutaneous pen Physical Exam Vital Signs: Vital Signs: Last Vital Signs Temp 98.2 F 09/05/21 15:17 Pulse 84 09/05/21 15:17 Resp 18 09/05/21 15:17 BP 147/65 H 09/05/21 15:17 Pulse Ox 93 09/05/21 15:17 BMI result Body Mass Index 44.7 Const: General: comfortable and no acute distress Orientation/consciousness: patient oriented x3 Neck: Neck: Yes no lymphadenopathy Resp: Auscultation: clear to auscultation bilaterally Cardio: Rhythm: regular rhythm GI: Palpation (GI): Soft to palpation, nontender and no guarding Back/Spine/Pelvis: Other: On the gluteal area next to the anus is note of a wide area of induration, with redness, tenderness, cellulitic changes, no obvious fluctuance at this time Neuro: General: patient oriented x3 Results Labs Result diagrams: 09/06/21 05:49 09/06/21 05:49 Labs: Abnormal lab results 09/04/21 09/04/21 09/05/21 Range/Units 17:27 20:14 06:09 WBC (4.8-10.8) X10*3/uL Sodium (135-145) mmol/L Anion Gap (12-20) POC Glucose 359 H* 342 H (60-115) mg/dL Fasting Glucose (60-99) mg/dL Vancomycin Trough 5.4 L (10.0-20.0) mcg/mL 09/05/21 09/05/21 09/05/21 Range/Units 06:09 06:09 07:29 WBC 11.2 H (4.8-10.8) X10*3/uL Sodium 134 L (135-145) mmol/L Anion Gap 9 L (12-20) POC Glucose 333 H (60-115) mg/dL Fasting Glucose 352 H* (60-99) mg/dL Vancomycin Trough (10.0-20.0) mcg/mL 09/05/21 Range/Units 12:38 WBC (4.8-10.8) X10*3/uL Sodium (135-145) mmol/L Anion Gap (12-20) POC Glucose 250 H (60-115) mg/dL Fasting Glucose (60-99) mg/dL Vancomycin Trough (10.0-20.0) mcg/mL Short CBC 09/05/21 Range/Units 06:09 WBC 11.2 H (4.8-10.8) X10*3/uL Hgb 14.1 (12.0-16.0) g/dl Hct 41.9 (37.0-47.0) % Plt Count 315 (160-400) X10*3/uL BMP 09/05/21 06:09 Sodium 134 L Potassium 4.3 Chloride 100 Carbon Dioxide 29 BUN 9 Creatinine 0.74 Calcium 8.5 All other labs normal. Imaging Additional studies: Laboratory Results WBC 11.2 X10*3/uL (4.8-10.8) H 09/05/21 06:09 RBC 4.76 X10*6/uL (4.20-5.50) 09/05/21 06:09 Hgb 14.1 g/dl (12.0-16.0) 09/05/21 06:09 Hct 41.9 % (37.0-47.0) 09/05/21 06:09 MCV 88.0 fL (80.0-98.0) 09/05/21 06:09 MCH 29.6 pg (27.0-33.0) 09/05/21 06:09 MCHC 33.7 g/dl (31.0-35.0) 09/05/21 06:09 RDW 12.6 % (11.0-16.0) 09/05/21 06:09 Plt Count 315 X10*3/uL (160-400) 09/05/21 06:09 MPV 9.8 fL (9.4-12.3) 09/05/21 06:09 Immature Gran % (Auto) 0.4 % (0.0-0.4) 09/04/21 06:55 Neut % (Auto) 68.5 % (45-73) 09/04/21 06:55 Lymph % (Auto) 20.1 % (20-40) 09/04/21 06:55 [place] % (Auto) 8.7 % (2-11) 09/04/21 06:55 Eos % (Auto) 1.8 % (0-4) 09/04/21 06:55 Baso % (Auto) 0.5 % (0-2) 09/04/21 06:55 Lymph # (Auto) 2.7 X10*3/uL (1.2-4.9) 09/04/21 06:55 [place] # (Auto) 1.2 X10*3/uL (0.1-1.2) 09/04/21 06:55 Eos # (Auto) 0.3 X10*3/uL (0.0-0.4) 09/04/21 06:55 Baso # (Auto) 0.1 X10*3/uL (0.0-0.2) 09/04/21 06:55 Abs Immat Gran (auto) 0.06 X10*3/uL (0.00-0.03) H 09/04/21 06:55 Absolute Neuts (auto) 9.3 x10*3/uL (2.0-8.3) H 09/04/21 06:55 Absolute Nucleated RBC 0.000 X10*3/uL (0.0-0.012) 09/05/21 06:09 Nucleated RBC % (auto) 0.0 /100WBC (0.0-0.2) 09/05/21 06:09 Sodium 134 mmol/L (135-145) L 09/05/21 06:09 Potassium 4.3 mmol/L (3.3-5.1) 09/05/21 06:09 Chloride 100 mmol/L (96-108) 09/05/21 06:09 Carbon Dioxide 29 mmol/L (22-29) 09/05/21 06:09 Anion Gap 9 (12-20) L 09/05/21 06:09 BUN 9 mg/dL (9-16) 09/05/21 06:09 Creatinine 0.74 mg/dL (0.5-1.4) 09/05/21 06:09 Estim Creat Clear Calc 117.8 09/05/21 06:09 Estimated GFR > 60 09/05/21 06:09 POC Glucose 250 mg/dL (60-115) H 09/05/21 12:38 Random Glucose 265 mg/dL (60-115) H 09/04/21 06:55 Fasting Glucose 352 mg/dL (60-99) H* 09/05/21 06:09 Lactic Acid 1.1 mmol/L (0.5-2.0) 09/03/21 16:45 Calcium 8.5 mg/dL (8.4-10.2) 09/05/21 06:09 Total Bilirubin 0.4 mg/dL (0.0-1.0) 09/03/21 16:46 Direct Bilirubin 0.2 mg/dL (0.0-0.5) 09/03/21 16:46 AST 12 U/L (5-31) D 09/03/21 16:46 ALT 11 U/L (0-31) 09/03/21 16:46 Alkaline Phosphatase 134 U/L (39-117) H D 09/03/21 16:46 Total Protein 6.6 g/dL (6.5-8.0) 09/03/21 16:46 Albumin 3.3 g/dL (3.5-5.0) L 09/03/21 16:46 Vancomycin Trough 5.4 mcg/mL (10.0-20.0) L 09/05/21 06:09 COVID-19 (HILDA) Negative (Negative) 09/03/21 18:32 COVID-19 Clin Com See Note 09/03/21 18:[address] 09/03/21 18:01 IMPRESSION: Large induration and thickening of left buttock skin and the underlying subcutaneous soft tissues extending medially to anal region and the intergluteal fold. Inferiorly extends along the posterior medial inner and upper thigh. There is no drainable abscess, gas or fluid collection. Assessment and Plan (1) Cellulitis of buttock: Status: Acute She has a wide area of induration on the left buttock near the gluteal cleft as described above. This has not improved with IV antibiotics. Her CAT scan on admission does not reveal any obvious abscess. However, in view of non improvement with IV antibiotic treatment for the past 2 days, I told her that it may be best to bring her to the operating room and do an I and D and explore the area for any abscesses. I explained to her the technique of this procedure. I reviewed the risks including but not limited to bleeding, infection, postop pain, open wound, poor healing, as well as the benefits and alternatives. She understands and wants to proceed. We will schedule this for tomorrow. She currently does not appear septic. She has been on IV antibiotics since admission. Procedures Date of Service Date of Service: 09/05/21
[2021-09-05 16:06] LABS: Glucose, Whole Blood 281 mg/dL (60-115)
[2021-09-05 19:48] LABS: Glucose, Whole Blood 405 mg/dL (60-115)
[2021-09-05] MEDS: vancomycin HCL 1,500 MG in 0.9 % Sodium Chloride 500 ML 333.33 MG IV (19:56)
[2021-09-05] MEDS: Enoxaparin Sodium 40 MG/0.4 ML SYRINGE SUBCUT (20:02)
[2021-09-05] MEDS: Doxepin HCl 10 MG CAPSULE PO (20:02)
[2021-09-05] MEDS: Benzonatate 100 MG CAPSULE PO (20:02)
[2021-09-05] MEDS: Melatonin 3 MG TABLET 6 MG PO (20:02)
[2021-09-05] MEDS: Insulin Glargine,Hum.rec.anlog 100 UNIT/ML 10 ML VIAL 40 UNIT SUBCUT (21:24)
--- NOTE | 2021-09-05 22:28 | PC.NURSE ---
POC= 405, pt is asymptomatic, Dr. Gross was made aware, ordered Lispro SS 10 units and scheduled Lantus given.
[2021-09-06] VITALS (16 sets, daily range): BP systolic 112–154; BP diastolic 62–84; PULSE 70–89; RESP 16–20; TEMP 35.8–37; O2SAT 95–100
[2021-09-06] MEDS: HYDROmorphone HCl 0.5 MG/0.5 ML SYRINGE IVPUSH ×5 (00:18→22:01)
[2021-09-06] MEDS: Piperacillin Sodium/Tazobactam 3.375 GM in 0.9 % Sodium Chloride 50 ML IV ×4 (01:11→21:37)
[2021-09-06 06:14] LABS: Hematocrit 42.7 % (37.0-47.0); Hemoglobin 14.3 g/dl (12.0-16.0); Mean Corpuscular HGB Conc 33.5 g/dl (31.0-35.0); Mean Corpuscular Hemoglobin 29.2 pg (27.0-33.0); Mean Corpuscular Volume 87.3 fL (80.0-98.0); Mean Platelet Volume 9.7 fL (9.4-12.3); Platelet Count 319 X10*3/uL (160-400); Red Blood Count 4.89 X10*6/uL (4.20-5.50); Red Cell Distribution Width 12.5 % (11.0-16.0); White Blood Count 9.3 X10*3/uL (4.8-10.8)
[2021-09-06] MEDS: Omeprazole 20 MG CAPSULE.DR PO (06:22)
[2021-09-06] MEDS: Levothyroxine Sodium 200 MCG TABLET PO (06:22)
[2021-09-06 06:40] LABS: Anion Gap 10 (12-20); Blood Urea Nitrogen 7 mg/dL (9-16); Calcium 8.6 mg/dL (8.4-10.2); Carbon Dioxide 31 mmol/L (22-29); Chloride 99 mmol/L (96-108); Creatinine Clr Calc Pharmacy 121.1; Estimated Glomerular Filt Rate > 60; Glucose Fasting 328 mg/dL (60-99); Potassium 4.7 mmol/L (3.3-5.1); Sodium 135 mmol/L (135-145)
[2021-09-06 07:28] LABS: Glucose, Whole Blood 278 mg/dL (60-115)
[2021-09-06] MEDS: Gabapentin 400 MG CAPSULE 800 MG PO ×3 (07:33→21:38)
[2021-09-06] MEDS: Cyanocobalamin (Vitamin B-12) 1,000 MCG TABLET 1000 MCG PO (07:33)
[2021-09-06] MEDS: Insulin Lispro 100 UNIT/ML 3 ML VIAL SUBCUT ×3 (07:33→21:39)
[2021-09-06] MEDS: Escitalopram Oxalate 20 MG TABLET PO (07:33)
[2021-09-06] MEDS: Atorvastatin Calcium 40 MG TABLET PO (07:33)
[2021-09-06] MEDS: 0.9 % Sodium Chloride Flush 3 ML SYRINGE IVFLUSH ×2 (07:34→15:00)
[2021-09-06] MEDS: vancomycin HCL 1,500 MG in 0.9 % Sodium Chloride 500 ML 333.33 MG IV ×2 (07:35→22:41)
--- NOTE | 2021-09-06 08:59 | HO.PM.IMPN ---
Subjective Subjective Date of Service: 09/06/21 Interval History: cc: perianal pain, erythema interval history:having drainage at site Cardiovascular Cardiovascular: Reports no additional cardiovascular complaints Respiratory Respiratory: Reports no additional respiratory complaints Physical Exam Vital Signs: Vital Signs: Last Vital Signs Temp 96.5 F L 09/06/21 07:01 Pulse 78 09/06/21 07:01 Resp 18 09/06/21 07:01 BP 112/63 09/06/21 07:01 Pulse Ox 96 09/06/21 07:01 BMI result Body Mass Index 44.7 General: AO X 3, in discomfort Resp:? CTA bilateral, no accessory muscles used CVS: S1,S2,RRR GI: soft, non tender, non distended Neuro:? motor grossly intact, alert Psych: appropriate affect, appropriate insight? skin: erythema of buttocks, perianal area Objective Data Active Medications Acetaminophen (Acetaminophen 325 Mg Tablet) 650 mg PO Q6H PRN PRN Reason: Pain, Mild (Pain Scale 1-3) Albuterol Sulfate (Albuterol Sulfate 90 Mcg 8 Gm Inhaler) 2 puff INHALE Q8H PRN PRN Reason: shortness of breath or wheezing Albuterol/Ipratropium (Albuterol/Iprat 2.5/0.5mg 3 Ml Ampul.Neb) 3 ml INHALE Q6H PRN PRN Reason: wheezing Atorvastatin Calcium (Atorvastatin Calcium 40 Mg Tablet) 40 mg PO DAILY [facility] Last Admin: 09/06/21 07:33 Dose: 40 mg Documented by: AISHA Benzonatate (Benzonatate 100 Mg Capsule) 100 mg PO TID PRN PRN Reason: Cough Last Admin: 09/05/21 20:02 Dose: 100 mg Documented by: DARIEN Cyanocobalamin (Cyanocobalamin (Vitamin B-12) 1,000 Mcg Tablet) 1,000 mcg PO DAILY [facility] Last Admin: 09/06/21 07:33 Dose: 1,000 mcg Documented by: AISHA Dextrose (Dextrose 50 % 25 Gm/50 Ml Vial) 25 gm IVPUSH Q15M PRN; Protocol PRN Reason: per Hypoglycemia Standing Ord. Doxepin HCl (Doxepin Hcl 10 Mg Capsule) 10 mg PO BEDTIME [facility] Last Admin: 09/05/21 20:02 Dose: 10 mg Documented by: DARIEN Enoxaparin Sodium (Enoxaparin Sodium 40 Mg/0.4 Ml Syringe) 40 mg SUBCUT Q24H [facility] Last Admin: 09/05/21 20:02 Dose: 40 mg Documented by: DARIEN Ergocalciferol (Ergocalciferol (Vitamin D2) 1,250 Mcg Capsule) 1,250 mcg PO Sa [facility] Last Admin: 09/04/21 07:44 Dose: Not Given Documented by: BRIGETTE Non-Admin Reason: See Note Comments: this rn did not have this patient on 09/03/21 when med was due. medication was never administered. Escitalopram Oxalate (Escitalopram Oxalate 20 Mg Tablet) 20 mg PO DAILY [facility] Last Admin: 09/06/21 07:33 Dose: 20 mg Documented by: AISHA Fluticasone Propionate (Fluticasone Propionate 100 Mcg Blst.W.Dev) 1 puff INHALE BID [facility] Last Admin: 09/06/21 08:27 Dose: Not Given Documented by: LATONIA Non-Admin Reason: Patient Refused Gabapentin (Gabapentin 400 Mg Capsule) 800 mg PO TID [facility] Last Admin: 09/06/21 07:33 Dose: 800 mg Documented by: AISHA Glucose (Glucose Gel 15 Gm Gel..Gram.) 15 gm PO Q15M PRN; Protocol PRN Reason: per Hypoglycemia Standing Ord. Hydromorphone HCl (Hydromorphone Hcl 0.5 Mg/0.5 Ml Syringe) 0.5 mg IVPUSH Q3H PRN; Protocol PRN Reason: Pain, Severe (Pain Scale 7-10) Last Admin: 09/06/21 06:22 Dose: 0.5 mg Documented by: DARIEN Piperacillin Sod/Tazobactam (Sod 3.375 gm/ Sodium Chloride) 50 mls @ 100 mls/hr IV Q6H [facility] Last Infusion: 09/06/21 07:40 Dose: 0 mls/hr Documented by: AISHA Vancomycin HCl 1,500 mg/ (Sodium Chloride) 500 mls @ 333.333 mls/hr IV Q12H [facility] Last Admin: 09/06/21 07:35 Dose: 333.33 mls/hr Documented by: AISHA Insulin Glargine (Insulin Glargine,Hum.Rec.Anlog 100 Unit/Ml 10 Ml Vial) 40 unit SUBCUT BEDTIME [facility] Last Admin: 09/05/21 21:24 Dose: 40 unit Documented by: DARIEN Insulin Human Lispro (Insulin Lispro 100 Unit/Ml 3 Ml Vial) 0 unit SUBCUT QIDACHS [facility]; Protocol Last Admin: 09/06/21 07:33 Dose: 6 unit Documented by: AISHA Levothyroxine Sodium (Levothyroxine Sodium 200 Mcg Tablet) 200 mcg PO DAILY@0600 [facility] Last Admin: 09/06/21 06:22 Dose: 200 mcg Documented by: DARIEN Losartan Potassium (Losartan Potassium 50 Mg Tablet) 50 mg PO DAILY [facility]; Protocol Last Admin: 09/06/21 07:40 Dose: Not Given Documented by: AISHA Non-Admin Reason: Decreased Blood Pressure Melatonin (Melatonin 3 Mg Tablet) 6 mg PO BEDTIME PRN PRN Reason: Insomnia Last Admin: 09/05/21 20:02 Dose: 6 mg Documented by: DARIEN Omeprazole (Omeprazole 20 Mg Capsule.) 20 mg PO DAILY@0630 [facility] Last Admin: 09/06/21 06:22 Dose: 20 mg Documented by: DARIEN Pharmacy Consult (Consult Rx Perform Med Rec) 1 each MISCELLANE ONCE PRN PRN Reason: Consult order Pharmacy Consult (Consult Rx Vancomycin Dosing) 1 each MISCELLANE DAILY PRN PRN Reason: Consult order Pharmacy Consult (Consult Rx Vancomycin Dosing) 1 each MISCELLANE DAILY PRN PRN Reason: Consult order Senna (Sennosides 8.6 Mg Tablet) 17.2 mg PO BEDTIME PRN PRN Reason: Constipation Last Admin: 09/04/21 22:29 Dose: 17.2 mg Documented by: LANI Sodium Chloride (0.9 % Sodium Chloride Flush 3 Ml Syringe) 3 ml IVFLUSH QSHIFT [facility] Last Admin: 09/06/21 07:34 Dose: 3 ml Documented by: AISHA Labs CBC & Chem 7: 09/06/21 05:49 09/06/21 05:49 Labs: Laboratory Results - last 24 hr 09/05/21 09/05/21 09/05/21 12:38 15:20 19:22 MCV MCH MCHC RDW Plt Count MPV Absolute Nucleated RBC Nucleated RBC % (auto) Anion Gap Estim Creat Clear Calc Estimated GFR POC Glucose 250 H 281 H 405 H* Fasting Glucose Calcium 09/06/21 09/06/21 09/06/21 05:49 05:49 07:24 MCV 87.3 MCH 29.2 MCHC 33.5 RDW 12.5 Plt Count 319 MPV 9.7 Absolute Nucleated RBC 0.000 Nucleated RBC % (auto) 0.0 Anion Gap 10 L Estim Creat Clear Calc 121.1 Estimated GFR > 60 POC Glucose 278 H Fasting Glucose 328 H Calcium 8.6 Microbiology Microbiology Results: Microbiology 09/03/21 17:01 Blood Culture - Preliminary Blood - Venous No growth after 48 hours. 09/03/21 16:47 Blood Culture - Preliminary Blood - Venous No growth after 48 hours. Assessment and Plan (1) Cellulitis: Status: Acute Plan 50F presented with perianal erythema and pain perianal cellulitis ID appreciated, continue vanc, zosyn plan for OR today for exploration/ I and D blood cultures negative DM with hyperglycemia basal bolus insulin low carb diet (patient poorly compliant) morbid obesity weight loss hyopthyroid synthroid htn losartan, hld statin reason for continued hospitalization: severe pain, iv abx, risk for decompensation to sepsis due to DM, plan for surgical intervention Quality Stroke Does the patient have a stroke diagnosis?: No VTE Prior VTE?: No VTE Risk Level:: Medical - moderate - high VTE Device Contraindication: Treatment Not Indicated VTE Drug Contraindication: N/A - Med Ordered
[2021-09-06 11:22] LABS: Glucose, Whole Blood 195 mg/dL (60-115)
--- NOTE | 2021-09-06 12:13 | PC.NURSE ---
Patient arrived to preop with one silver necklace on. This removed and placed in patient labeled bag.
--- NOTE | 2021-09-06 12:14 | PC.NURSE ---
Patient arrived to [facility] with #20 PRN angio in right AC. Site asymptomatic, flushed well.
--- NOTE | 2021-09-06 12:26 | HO.ANESPROP2 ---
HPI - Anesthesia Eval Consult details Narrative: 50 F for I and D left buttock asthma / COPD patient wheezing in the pre op . Duo neb nebulization given in the pre-op Morbid Obesity PMFSH Active Problems Active Problems: All Active Problems (Updated 09/05/21 @ 15:35 by Steven Trent MD) Cellulitis of buttock (Acute) Cellulitis (Acute) Rib fractures (Acute) Acute bronchitis (Acute) Superficial bruising of abdominal wall (Acute) Lower extremity weakness (Acute) HTN (hypertension) (Acute) Low TSH level (Acute) Otitis externa (Acute) Weakness (Acute) Acute bronchitis (Acute) Smoker (Acute) Hypothyroid (Acute) SI (sacroiliac) joint dysfunction (Acute) Pelvic pressure in female (Acute) Abscess, gluteal cleft (Acute) Morbid obesity (Acute) Potential exposure to STD (Acute) Encounter for annual routine gynecological examination (Acute) Screening-pulmonary TB (Acute) Hypothyroid (Acute) Uncontrolled diabetes mellitus (Acute) Tracheobronchitis (Acute) Abdominal wall abscess (Acute) B12 deficiency (Acute) Morbid obesity (Acute) Cough (Acute) Conjunctivitis (Acute) Flank pain (Acute) Diabetes (Acute) Past Medical History Medical History (Updated 09/05/21 @ 15:35 by Steven Trent MD) Anxiety B12 deficiency Cellulitis of buttock Depression Diabetes Hyperlipidemia Migraines Morbid obesity Sciatic leg pain Family History Family History Father HTN (hypertension) CVD (cardiovascular disease) Diabetes mellitus Mental health disorder Mother Diabetes mellitus Uterine cancer COPD (chronic obstructive pulmonary disease) Mental health disorder Maternal Grandmother Breast cancer Paternal Aunt Breast cancer Brother No problems noted. Sister Substance use disorder Mental health disorder Sister No problems noted. Sister No problems noted. Daughter No problems noted. Son No problems noted. Son No problems noted. Son No problems noted. Son No problems noted. Son No problems noted. Son No problems noted. Family history of problems with anesthesia: No Surgical History Surgical History H/O elbow surgery H/O thyroidectomy Hx of tubal ligation History of Problems with Anesthesia: No Social History Social History Household Members: Family Housing: Apartment Do you presently have visiting nurse or other home services: No Alcohol intake: never Patient Tobacco Use Status: Current everyday Tobacco user Tobacco use type: Cigarette Cigarette Packs Per Day: 1 Cigarettes Per Day: 3 Years Smoked: 20 e-Cigarette/Vaping Use: Currently Using Second Hand Smoke Exposure: No service: No Current occupational status: employed Current occupation: [employer] Meds Allergies Allergy/AdvReac Type Severity Reaction Status Date / Time doxycycline [DOXYCYCLINE] Allergy Severe THROAT Verified 09/06/21 12:09 SWELLING clindamycin [CLINDAMYCIN] Allergy Intermediate CHEST PAIN Verified 09/06/21 12:09 Sulfa (Sulfonamide Allergy Unknown makes her Verified 09/06/21 12:09 Antibiotics) sick, vomit trimethoprim [From BACTRIM] Allergy Unknown NAUSEA & Verified 09/06/21 12:09 VOMITING sulfamethoxazole AdvReac Mild NAUSEA & Verified 09/06/21 12:09 [From BACTRIM] VOMITING lisinopril Allergy Unknown headaches Uncoded 07/18/21 14:49 Active Medications: Current Medications Acetaminophen (Acetaminophen 325 Mg Tablet) 650 mg PO Q6H PRN PRN Reason: Pain, Mild (Pain Scale 1-3) Albuterol Sulfate (Albuterol Sulfate 90 Mcg 8 Gm Inhaler) 2 puff INHALE Q8H PRN PRN Reason: shortness of breath or wheezing Albuterol/Ipratropium (Albuterol/Iprat 2.5/0.5mg 3 Ml Ampul.Neb) 3 ml INHALE Q6H PRN PRN Reason: wheezing Atorvastatin Calcium (Atorvastatin Calcium 40 Mg Tablet) 40 mg PO DAILY [facility] Last Admin: 09/06/21 07:33 Dose: 40 mg Documented by: Benzonatate (Benzonatate 100 Mg Capsule) 100 mg PO TID PRN PRN Reason: Cough Last Admin: 09/05/21 20:02 Dose: 100 mg Documented by: Cyanocobalamin (Cyanocobalamin (Vitamin B-12) 1,000 Mcg Tablet) 1,000 mcg PO DAILY [facility] Last Admin: 09/06/21 07:33 Dose: 1,000 mcg Documented by: Dextrose (Dextrose 50 % 25 Gm/50 Ml Vial) 25 gm IVPUSH Q15M PRN; Protocol PRN Reason: per Hypoglycemia Standing Ord. Doxepin HCl (Doxepin Hcl 10 Mg Capsule) 10 mg PO BEDTIME [facility] Last Admin: 09/05/21 20:02 Dose: 10 mg Documented by: Enoxaparin Sodium (Enoxaparin Sodium 40 Mg/0.4 Ml Syringe) 40 mg SUBCUT Q24H [facility] Last Admin: 09/05/21 20:02 Dose: 40 mg Documented by: Ergocalciferol (Ergocalciferol (Vitamin D2) 1,250 Mcg Capsule) 1,250 mcg PO Sa [facility] Last Admin: 09/04/21 07:44 Dose: Not Given Documented by: Escitalopram Oxalate (Escitalopram Oxalate 20 Mg Tablet) 20 mg PO DAILY [facility] Last Admin: 09/06/21 07:33 Dose: 20 mg Documented by: Fluticasone Propionate (Fluticasone Propionate 100 Mcg Blst.W.Dev) 1 puff INHALE BID [facility] Last Admin: 09/06/21 08:27 Dose: Not Given Documented by: Gabapentin (Gabapentin 400 Mg Capsule) 800 mg PO TID [facility] Last Admin: 09/06/21 07:33 Dose: 800 mg Documented by: Glucose (Glucose Gel 15 Gm Gel..Gram.) 15 gm PO Q15M PRN; Protocol PRN Reason: per Hypoglycemia Standing Ord. Hydromorphone HCl (Hydromorphone Hcl 0.5 Mg/0.5 Ml Syringe) 0.5 mg IVPUSH Q3H PRN; Protocol PRN Reason: Pain, Severe (Pain Scale 7-10) Last Admin: 09/06/21 09:40 Dose: 0.5 mg Documented by: Piperacillin Sod/Tazobactam (Sod 3.375 gm/ Sodium Chloride) 50 mls @ 100 mls/hr IV Q6H [facility] Last Infusion: 09/06/21 07:40 Dose: Infused Documented by: Vancomycin HCl 1,500 mg/ (Sodium Chloride) 500 mls @ 333.333 mls/hr IV Q12H [facility] Last Infusion: 09/06/21 09:06 Dose: Infused Documented by: Insulin Glargine (Insulin Glargine,Hum.Rec.Anlog 100 Unit/Ml 10 Ml Vial) 40 unit SUBCUT BEDTIME [facility] Last Admin: 09/05/21 21:24 Dose: 40 unit Documented by: Insulin Human Lispro (Insulin Lispro 100 Unit/Ml 3 Ml Vial) 0 unit SUBCUT QIDACHS [facility]; Protocol Last Admin: 09/06/21 11:30 Dose: Not Given Documented by: Levothyroxine Sodium (Levothyroxine Sodium 200 Mcg Tablet) 200 mcg PO DAILY@0600 [facility] Last Admin: 09/06/21 06:22 Dose: 200 mcg Documented by: Losartan Potassium (Losartan Potassium 50 Mg Tablet) 50 mg PO DAILY [facility]; Protocol Last Admin: 09/06/21 07:40 Dose: Not Given Documented by: Melatonin (Melatonin 3 Mg Tablet) 6 mg PO BEDTIME PRN PRN Reason: Insomnia Last Admin: 09/05/21 20:02 Dose: 6 mg Documented by: Omeprazole (Omeprazole 20 Mg Capsule.) 20 mg PO DAILY@0630 [facility] Last Admin: 09/06/21 06:22 Dose: 20 mg Documented by: Pharmacy Consult (Consult Rx Perform Med Rec) 1 each MISCELLANE ONCE PRN PRN Reason: Consult order Pharmacy Consult (Consult Rx Vancomycin Dosing) 1 each MISCELLANE DAILY PRN PRN Reason: Consult order Pharmacy Consult (Consult Rx Vancomycin Dosing) 1 each MISCELLANE DAILY PRN PRN Reason: Consult order Senna (Sennosides 8.6 Mg Tablet) 17.2 mg PO BEDTIME PRN PRN Reason: Constipation Last Admin: 09/04/21 22:29 Dose: 17.2 mg Documented by: Sodium Chloride (0.9 % Sodium Chloride Flush 3 Ml Syringe) 3 ml IVFSH [facility] Last Admin: 09/06/21 07:34 Dose: 3 ml Documented by: Home Medications Medication Instructions Recorded Confirmed Last Taken Type escitalopram oxalate 20 mg tablet 20 mg PO DAILY 09/13/20 09/03/21 Unknown History doxepin 10 mg capsule 10 - 20 mg PO BEDTIME 01/04/21 09/03/21 Unknown History insulin degludec 200 unit/mL (3 95 unit SUBCUT BEDTIME 09/04/21 09/04/21 Unknown History mL) subcutaneous pen (Tresiba FlexTouch U-200 insulin) insulin lispro 100 unit/mL See Rx Instructions .ROUTE .COMPLEX 09/04/21 09/04/21 Unknown History subcutaneous pen Exam Exam Date and Time: September 06, 2021 1226 Height,Weight and Vital Signs: Height 5 ft 5 in Weight 122.016 kg Last Vital Signs Temp 97.8 F 09/06/21 12:09 Pulse 75 09/06/21 12:09 Resp 16 09/06/21 12:09 BP 138/69 09/06/21 12:09 Pulse Ox 96 09/06/21 12:09 Pertinent Lab Results Pertinent Lab Results: Laboratory Tests 09/03/21 09/03/21 09/03/21 16:45 16:46 16:46 WBC 13.8 H RBC 4.98 Hgb 14.6 Hct 43.2 MCV 86.7 MCH 29.3 MCHC 33.8 RDW 12.6 Plt Count 283 MPV 10.2 Immature Gran % (Auto) 0.4 Neut % (Auto) 74.0 H Lymph % (Auto) 15.5 L [place] % (Auto) 7.5 Eos % (Auto) 2.1 Baso % (Auto) 0.5 Lymph # (Auto) 2.1 [place] # (Auto) 1.0 Eos # (Auto) 0.3 Baso # (Auto) 0.1 Abs Immat Gran (auto) 0.06 H Absolute Neuts (auto) 10.2 H Absolute Nucleated RBC 0.000 Nucleated RBC % (auto) 0.0 Sodium 134 L Potassium 4.8 Chloride 98 Carbon Dioxide 28 Anion Gap 13 BUN 9 Creatinine 0.85 Estim Creat Clear Calc 102.6 Estimated GFR > 60 POC Glucose Random Glucose 515 H* Fasting Glucose Lactic Acid 1.1 Calcium 9.2 Total Bilirubin 0.4 Direct Bilirubin 0.2 AST 12 D ALT 11 Alkaline Phosphatase 134 H D Total Protein 6.6 Albumin 3.3 L Vancomycin Trough COVID-19 ([facility]) COVID-[facility] Clin Com 09/03/21 09/03/21 09/03/21 18:32 19:14 21:03 WBC RBC Hgb Hct MCV MCH MCHC RDW Plt Count MPV Immature Gran % (Auto) Neut % (Auto) Lymph % (Auto) [place] % (Auto) Eos % (Auto) Baso % (Auto) Lymph # (Auto) [place] # (Auto) Eos # (Auto) Baso # (Auto) Abs Immat Gran (auto) Absolute Neuts (auto) Absolute Nucleated RBC Nucleated RBC % (auto) Sodium Potassium Chloride Carbon Dioxide Anion Gap BUN Creatinine Estim Creat Clear Calc Estimated GFR POC Glucose 237 H 188 H Random Glucose Fasting Glucose Lactic Acid Calcium Total Bilirubin Direct Bilirubin AST ALT Alkaline Phosphatase Total Protein Albumin Vancomycin Trough COVID-19 ([facility]) Negative COVID-19 Clin Com See Note 09/04/21 09/04/2109/04/22 06:55 06:55 07:55 WBC 13.6 H RBC 4.73 Hgb 14.1 Hct 41.5 MCV 87.7 MCH 29.8 MCHC 34.0 RDW 12.7 Plt Count 308 MPV 10.2 Immature Gran % (Auto) 0.4 Neut % (Auto) 68.5 Lymph % (Auto) 20.1 [place] % (Auto) 8.7 Eos % (Auto) 1.8 Baso % (Auto) 0.5 Lymph # (Auto) 2.7 [place] # (Auto) 1.2 Eos # (Auto) 0.3 Baso # (Auto) 0.1 Abs Immat Gran (auto) 0.06 H Absolute Neuts (auto) 9.3 H Absolute Nucleated RBC 0.000 Nucleated RBC % (auto) 0.0 Sodium 133 L Potassium 4.4 Chloride 101 Carbon Dioxide 26 Anion Gap 10 L BUN 7 L Creatinine 0.68 Estim Creat Clear Calc 128.2 Estimated GFR > 60 POC Glucose 246 H Random Glucose 265 H Fasting Glucose Lactic Acid Calcium 8.3 L D Total Bilirubin Direct Bilirubin AST ALT Alkaline Phosphatase Total Protein Albumin Vancomycin Trough COVID-19 ([facility]) COVID-19 [facility] 09/04/21 09/04/21 09/04/21 13:49 17:27 20:14 WBC RBC Hgb Hct MCV MCH MCHC RDW Plt Count MPV Immature Gran % (Auto) Neut % (Auto) Lymph % (Auto) [place] % (Auto) Eos % (Auto) Baso % (Auto) Lymph # (Auto) [place] # (Auto) Eos # (Auto) Baso # (Auto) Abs Immat Gran (auto) Absolute Neuts (auto) Absolute Nucleated RBC Nucleated RBC % (auto) Sodium Potassium Chloride Carbon Dioxide Anion Gap BUN Creatinine Estim Creat Clear Calc Estimated GFR POC Glucose 330 H 359 H* 342 H Random Glucose Fasting Glucose Lactic Acid Calcium Total Bilirubin Direct Bilirubin AST ALT Alkaline Phosphatase Total Protein Albumin Vancomycin Trough COVID-19 ([facility]) COVID-19 Clin Com 09/05/21 09/05/21 09/05/21 06:09 06:09 06:09 WBC 11.2 H RBC 4.76 Hgb 14.1 Hct 41.9 MCV 88.0 MCH 29.6 MCHC 33.7 RDW 12.6 Plt Count 315 MPV 9.8 Immature Gran % (Auto) Neut % (Auto) Lymph % (Auto) [place] % (Auto) Eos % (Auto) Baso % (Auto) Lymph # (Auto) [place] # (Auto) Eos # (Auto) Baso # (Auto) Abs Immat Gran (auto) Absolute Neuts (auto) Absolute Nucleated RBC 0.000 Nucleated RBC % (auto) 0.0 Sodium 134 L Potassium 4.3 Chloride 100 Carbon Dioxide 29 Anion Gap 9 L BUN 9 Creatinine 0.74 Estim Creat Clear Calc 117.8 Estimated GFR > 60 POC Glucose Random Glucose Fasting Glucose 352 H* Lactic Acid Calcium 8.5 Total Bilirubin Direct Bilirubin AST ALT Alkaline Phosphatase Total Protein Albumin Vancomycin Trough 5.4 L COVID-19 ([facility]) COVID-19 [facility] 09/05/21 09/05/21 09/05/21 07:29 12:38 15:20 WBC RBC Hgb Hct MCV MCH MCHC RDW Plt Count MPV Immature Gran % (Auto) Neut % (Auto) Lymph % (Auto) [place] % (Auto) Eos % (Auto) Baso % (Auto) Lymph # (Auto) [place] # (Auto) Eos # (Auto) Baso # (Auto) Abs Immat Gran (auto) Absolute Neuts (auto) Absolute Nucleated RBC Nucleated RBC % (auto) Sodium Potassium Chloride Carbon Dioxide Anion Gap BUN Creatinine Estim Creat Clear Calc Estimated GFR POC Glucose 333 H 250 H 281 H Random Glucose Fasting Glucose Lactic Acid Calcium Total Bilirubin Direct Bilirubin AST ALT Alkaline Phosphatase Total Protein Albumin Vancomycin Trough COVID-19 ([facility]) COVID-19 [facility] 09/05/21 09/06/21 09/06/21 19:22 05:49 05:49 WBC 9.3 RBC 4.89 Hgb 14.3 Hct 42.7 MCV 87.3 MCH 29.2 MCHC 33.5 RDW 12.5 Plt Count 319 MPV 9.7 Immature Gran % (Auto) Neut % (Auto) Lymph % (Auto) [place] % (Auto) Eos % (Auto) Baso % (Auto) Lymph # (Auto) [place] # (Auto) Eos # (Auto) Baso # (Auto) Abs Immat Gran (auto) Absolute Neuts (auto) Absolute Nucleated RBC 0.000 Nucleated RBC % (auto) 0.0 Sodium 135 Potassium 4.7 Chloride 99 Carbon Dioxide 31 H Anion Gap 10 L BUN 7 L Creatinine 0.72 Estim Creat Clear Calc 121.1 Estimated GFR > 60 POC Glucose 405 H* Random Glucose Fasting Glucose 328 H Lactic Acid Calcium 8.6 Total Bilirubin Direct Bilirubin AST ALT Alkaline Phosphatase Total Protein Albumin Vancomycin Trough COVID-19 ([facility]) COVID-19 Clin Com 09/06/21 09/06/21 07:24 11:15 WBC RBC Hgb Hct MCV MCH MCHC RDW Plt Count MPV Immature Gran % (Auto) Neut % (Auto) Lymph % (Auto) [place] % (Auto) Eos % (Auto) Baso % (Auto) Lymph # (Auto) [place] # (Auto) Eos # (Auto) Baso # (Auto) Abs Immat Gran (auto) Absolute Neuts (auto) Absolute Nucleated RBC Nucleated RBC % (auto) Sodium Potassium Chloride Carbon Dioxide Anion Gap BUN Creatinine Estim Creat Clear Calc Estimated GFR POC Glucose 278 H 195 H Random Glucose Fasting Glucose Lactic Acid Calcium Total Bilirubin Direct Bilirubin AST ALT Alkaline Phosphatase Total Protein Albumin Vancomycin Trough COVID-19 ([facility]) COVID-19 Clin Com Airway Mallampati Class: III (big tongue , slightly swollen ) TM Dist: >3cm Neck ROM: Full Denture: Upper and Lower Loose/Missing/Broken Teeth: Yes Heart: rrr Lungs: distant breath sounds Assessment and Plan Assessment Anesthesia Assessment: Anesthesia Plan Discussed Final Anesthetic Review Family History of Problems with Anesthesia: No History of Problems with Anesthesia: No NPO: Yes ASA Class: III and Emergency Final Preanesthetic Review: Meds/Allgs Chart Reviewed, Consent Obtained/Reviewed and Anes Risks/Benef Reviewed Patient Risk: High Procedure Risk: Intermediate Anesthetic Plan Anesthetic Plan: GA Disposition: Inp. Admit - Standard Bed
--- NOTE | 2021-09-06 13:39 | PM.OP ---
Brief Operative Note Date of Service: 09/06/21 <Xiomara Moss PA-C - Last Filed: 09/06/21 13:41> Pre-op diagnosis: cellulitis of buttock <SASHA Lakhani Last Filed: 09/06/21 13:41> Post-op diagnosis: same (abscess of left buttock) <Xiomara Moss PA-C - Last Filed: 09/06/21 13:41> Procedure: incision and drainage and wash out of left buttock abscess <Xiomara Moss PA-C - Last Filed: 09/06/21 13:41> Surgeon: BEATA TRENT MD <Xiomara Moss PA-C - Last Filed: 09/06/21 13:41> Anesthesia: GETA <Xiomara Moss PA-C - Last Filed: 09/06/21 13:41> Was an Hydrologic Engineer used for this Procedure?: Yes <Xiomara Moss PA-C - Last Filed: 09/06/21 13:41> No <Beata Trent MD - Last Filed: 09/06/21 13:48> Hydrologic Engineer: Xiomara Moss <SASHA Lakhani Last Filed: 09/06/21 13:41> Estimated blood loss (mL): 10 <SASHA Lakhani Last Filed: 09/06/21 13:41> Pathology: other (left buttock abscess cultures & tissue) <SASHA Lakhani Last Filed: 09/06/21 13:41> Condition: stable <SASHA Lakhani Last Filed: 09/06/21 13:41> Disposition: PACU <SASHA Lakhani Last Filed: 09/06/21 13:41>
--- NOTE | 2021-09-06 13:42 | W.PM.OPN ---
Operative Note Operative Note Date of Service: 09/06/21 Narrative: Pre op diagnosis: Left buttock cellulitis with abscess Postop diagnosis: Left buttock cellulitis with large abscess cavity Procedure: Incision drainage of a large left buttock abscess, with sharp excisional debridement of the cavity Surgeon: Steven Trent MD assistant professor of psychology: KERRY Moss Patient is a 50-year-old female admitted 3 days ago under the hospitalist service because of redness and pain on the left buttock area near the perianal region and the gluteal cleft. She had a CAT scan which did not reveal fluid collection although there was a lot of inflammatory changes in the subcutaneous fat. She was treated with IV antibiotics. However, she did not improve and I was consulted. She had a large indurated area near the gluteal cleft in the perianal area on the left buttock measuring about 15 cm long by about 7 7 cm wide. I therefore told her that it would be best to proceed with I and D in the OR and even possible debridement. I explained to her the risks, benefits, and alternatives and she had given consent She was brought to the operating room and placed in left lateral decubitus position under general anesthesia via endotracheal tube. The right buttock was retracted away from the midline with wide tape. The left buttock in the gluteal cleft as well the perianal area were prepped and draped in the usual sterile fashion. A surgical time-out was done. There was note of an area of fluctuance in the middle of this induration so I incised this with a blade 15. Large amounts of pus was immediately drain. Cultures of this fluid were taken. I probed the area with a finger and the abscess cavity seemed to extend cephalad and caudad so I had to extend the incision on the skin and subcutaneous fat to allow optimal exposure of the cavity. The abscess cavity was about 15 cm in widest dimension. I probed the entire cavity. There was note of a lot of subcutaneous fat necrosis which I had to excised. There was fibrinous exudates and debris as well which I sharply debrided with the Garrido scissors. I also made a counter incision on the very cephalad side of this duration to make sure that we had adequately drain the area. I then used the Pulsevac to irrigate the entire cavity. The rest of the tissue on the cavity was viable . I then applied a long 1 in iodoform packing into entire cavity. Dressings were applied. The procedure was then completed The patient tolerated procedure well. No complication noted. Initial and final counts of sponges and instruments were correct. Estimated blood loss was about 30 cc The patient was extubated without difficulty and transferred to the recovery room with stable vital signs.
[2021-09-06] MEDS: HYDROmorphone HCl 0.5 MG/0.5 ML SYRINGE 0.25 MG IVPUSH ×2 (13:58→14:18)
--- NOTE | 2021-09-06 15:14 | PM.EVENT ---
Event Note Date of Service: 09/06/21 Event Note: Seen postop - underwent I and D and debridement, left buttock abscess earlier She seems to have good pain control Dressings dry Stable vital signs Explained to her the findings - large amounts of pus evacuated, subcutaneous fat debrided Packing in place Will change dressings tomorrow
[2021-09-06 15:33] LABS: Glucose, Whole Blood 195 mg/dL (60-115)
[2021-09-06 18:47] LABS: Vancomycin Trough 10.2 mcg/mL (10.0-20.0)
--- NOTE | 2021-09-06 19:02 | HE.PHANOTE ---
Vancomycin Dosing Addendum Continue with current regimen, trough 10.2 after 2 doses of 1500 mg q12h. Next trough 09/07/21 @1800.
[2021-09-06 20:07] LABS: Glucose, Whole Blood 501 mg/dL (60-115)
[2021-09-06] MEDS: Insulin Glargine,Hum.rec.anlog 100 UNIT/ML 10 ML VIAL 40 UNIT SUBCUT (21:38)
[2021-09-06] MEDS: Doxepin HCl 10 MG CAPSULE PO (21:38)
[2021-09-06] MEDS: Enoxaparin Sodium 40 MG/0.4 ML SYRINGE SUBCUT (21:38)
[2021-09-06] MEDS: Insulin Lispro 100 UNIT/ML 3 ML VIAL 10 UNIT SUBCUT (22:01)
[2021-09-07] MEDS: 0.9 % Sodium Chloride Flush 3 ML SYRINGE IVFLUSH ×4 (02:31→21:51)
[2021-09-07] MEDS: Piperacillin Sodium/Tazobactam 3.375 GM in 0.9 % Sodium Chloride 50 ML IV ×4 (02:42→19:36)
[2021-09-07] MEDS: HYDROmorphone HCl 0.5 MG/0.5 ML SYRINGE IVPUSH ×7 (02:42→23:01)
[2021-09-07 03:24] VITALS: BP 143/76; PULSE 79; RESP 18; TEMP 36.4; O2SAT 97
[2021-09-07] MEDS: Omeprazole 20 MG CAPSULE.DR PO (05:41)
[2021-09-07] MEDS: Levothyroxine Sodium 200 MCG TABLET PO (05:41)
[2021-09-07 06:21] LABS: Anion Gap 12 (12-20); Blood Urea Nitrogen 9 mg/dL (9-16); Calcium 8.5 mg/dL (8.4-10.2); Carbon Dioxide 28 mmol/L (22-29); Chloride 101 mmol/L (96-108); Creatinine Clr Calc Pharmacy 110.3; Estimated Glomerular Filt Rate > 60; Glucose Fasting 341 mg/dL (60-99); Potassium 4.3 mmol/L (3.3-5.1); Sodium 137 mmol/L (135-145)
[2021-09-07 06:35] LABS: Hematocrit 38.9 % (37.0-47.0); Mean Corpuscular HGB Conc 33.4 g/dl (31.0-35.0); Mean Corpuscular Hemoglobin 29.3 pg (27.0-33.0); Mean Corpuscular Volume 87.6 fL (80.0-98.0); Mean Platelet Volume 9.7 fL (9.4-12.3); Platelet Count 364 X10*3/uL (160-400); Red Blood Count 4.44 X10*6/uL (4.20-5.50); Red Cell Distribution Width 12.3 % (11.0-16.0); White Blood Count 11.8 X10*3/uL (4.8-10.8)
[2021-09-07 07:00] VITALS: BP 139/73; PULSE 65; RESP 20; TEMP 36.1; O2SAT 98
[2021-09-07 07:08] LABS: Glucose, Whole Blood 345 mg/dL (60-115)
[2021-09-07] MEDS: Losartan Potassium 50 MG TABLET PO (08:08)
[2021-09-07] MEDS: Escitalopram Oxalate 20 MG TABLET PO (08:08)
[2021-09-07] MEDS: Atorvastatin Calcium 40 MG TABLET PO (08:08)
[2021-09-07] MEDS: Cyanocobalamin (Vitamin B-12) 1,000 MCG TABLET 1000 MCG PO (08:08)
[2021-09-07] MEDS: Gabapentin 400 MG CAPSULE 800 MG PO ×3 (08:08→20:31)
[2021-09-07] MEDS: Insulin Lispro 100 UNIT/ML 3 ML VIAL SUBCUT ×4 (08:10→21:51)
[2021-09-07] MEDS: vancomycin HCL 1,500 MG in 0.9 % Sodium Chloride 500 ML 333.3 MG IV ×2 (08:10→21:09)
--- NOTE | 2021-09-07 09:31 | P.PNGS_ITS ---
Subjective Subjective Date of Service: 09/07/21 <Xiomara Moss PA-C - Last Filed: 09/07/21 09:37> 09/07/21 <Steven Trent MD - Last Filed: 09/07/21 13:42> Interval history: Very sore at abscess/drainage site. Has been changing abd dressing every time she uses restroom. <Xiomara Moss PA-C - Last Filed: 09/07/21 09:37> Physical Exam Vital Signs: Vital Signs: Last Vital Signs Temp 97 F 09/07/21 07:00 Pulse 65 09/07/21 07:00 Resp 20 09/07/21 07:00 BP 139/73 09/07/21 07:00 Pulse Ox 98 09/07/21 07:00 BMI result Body Mass Index 44.7 <SASHA Lakhani Last Filed: 09/07/21 09:37> Const: General: comfortable, no acute distress and alert <Xiomara Moss PA-C - Last Filed: 09/07/21 09:37> Orientation/consciousness: patient oriented x3 <Xiomara Moss PA-C - Last Filed: 09/07/21 09:37> Resp: Effort & Inspection: normal respiratory effort <SASHA Lakhani Last Filed: 09/07/21 09:37> Skin: Other: incision and drainage site- remains open, packing in place, continues with significant induration and erythema of left buttock extending both anteriorly into perineum and posteriorly, however no further fluctuance appreciated, no necrosis, no significant drainage <Xiomara Moss PA-C - Last Filed: 09/07/21 09:37> General skin exam: no rashes or lesions noted <Xiomara Moss PA-C - Last Filed: 09/07/21 09:37> Neuro: General: patient oriented x3 <SASHA Lakhani Last Filed: 09/07/21 09:37> Objective Data Active Medications Acetaminophen (Acetaminophen 325 Mg Tablet) 650 mg PO Q6H PRN PRN Reason: Pain, Mild (Pain Scale 1-3) Albuterol Sulfate (Albuterol Sulfate 90 Mcg 8 Gm Inhaler) 2 puff INHALE Q8H PRN PRN Reason: shortness of breath or wheezing Albuterol Sulfate (Albuterol Sulfate (0.083%) 2.5 Mg/3 Ml Vial.Neb) 2.5 mg INHALE ONCE PRN PRN Reason: Wheezing Albuterol/Ipratropium (Albuterol/Iprat 2.5/0.5mg 3 Ml Ampul.Neb) 3 ml INHALE Q6H PRN PRN Reason: wheezing Atorvastatin Calcium (Atorvastatin Calcium 40 Mg Tablet) 40 mg PO DAILY [facility] Last Admin: 09/07/21 08:08 Dose: 40 mg Documented by: HAYDEE Benzonatate (Benzonatate 100 Mg Capsule) 100 mg PO TID PRN PRN Reason: Cough Last Admin: 09/05/21 20:02 Dose: 100 mg Documented by: DARIEN Cyanocobalamin (Cyanocobalamin (Vitamin B-12) 1,000 Mcg Tablet) 1,000 mcg PO DAILY [facility] Last Admin: 09/07/21 08:08 Dose: 1,000 mcg Documented by: HAYDEE Dextrose (Dextrose 50 % 25 Gm/50 Ml Vial) 25 gm IVPUSH Q15M PRN; Protocol PRN Reason: per Hypoglycemia Standing Ord. Doxepin HCl (Doxepin Hcl 10 Mg Capsule) 10 mg PO BEDTIME [facility] Last Admin: 09/06/21 21:38 Dose: 10 mg Documented by: ROSALIO Enoxaparin Sodium (Enoxaparin Sodium 40 Mg/0.4 Ml Syringe) 40 mg SUBCUT Q24H [facility] Last Admin: 09/06/21 21:38 Dose: 40 mg Documented by: ROSALIO Ergocalciferol (Ergocalciferol (Vitamin D2) 1,250 Mcg Capsule) 1,250 mcg PO Sa [facility] Last Admin: 09/04/21 07:44 Dose: Not Given Documented by: BRIGETTE Non-Admin Reason: See Note Comments: this rn did not have this patient on 09/03/21 when med was due. medication was never administered. Escitalopram Oxalate (Escitalopram Oxalate 20 Mg Tablet) 20 mg PO DAILY [facility] Last Admin: 09/07/21 08:08 Dose: 20 mg Documented by: HAYDEE Fentanyl (Fentanyl Citrate/Pf 100 Mcg/2 Ml Vial) 25 mcg IVPUSH Q5M PRN; Pr otocol PRN Reason: Pain, Moderate (Pain Scale 4-6 Fluticasone Propionate (Fluticasone Propionate 100 Mcg Blst.W.Dev) 1 puff INHALE BID [facility] Last Admin: 09/07/21 07:39 Dose: Not Given Documented by: HEATHER Non-Admin Reason: Patient Refused Gabapentin (Gabapentin 400 Mg Capsule) 800 mg PO TID [facility] Last Admin: 09/07/21 08:08 Dose: 800 mg Documented by: HAYDEE Glucose (Glucose Gel 15 Gm Gel..Gram.) 15 gm PO Q15M PRN; Protocol PRN Reason: per Hypoglycemia Standing Ord. Hydromorphone HCl (Hydromorphone Hcl 0.5 Mg/0.5 Ml Syringe) 0.5 mg IVPUSH Q3H PRN; Protocol PRN Reason: Pain, Severe (Pain Scale 7-10) Last Admin: 09/07/21 06:24 Dose: 0.5 mg Documented by: ROSALIO Hydromorphone HCl (Hydromorphone Hcl 0.5 Mg/0.5 Ml Syringe) 0.25 mg IVPUSH Q5M PRN; Protocol PRN Reason: Pain, Severe (Pain Scale 7-10) Last Admin: 09/06/21 14:18 Dose: 0.25 mg Documented by: ROMA Piperacillin Sod/Tazobactam (Sod 3.375 gm/ Sodium Chloride) 50 mls @ 100 mls/hr IV Q6H [facility] Last Infusion: 09/07/21 08:24 Dose: 0 mls/hr Documented by: HAYDEE Vancomycin HCl 1,500 mg/ (Sodium Chloride) 500 mls @ 333.333 mls/hr IV Q12H [facility] Last Admin: 09/07/21 08:10 Dose: 333.3 mls/hr Documented by: HAYDEE Promethazine HCl 12.5 mg/ (Sodium Chloride) 50.5 mls @ 202 mls/hr IV ONCE PRN PRN Reason: Nausea and Vomiting Insulin Glargine (Insulin Glargine,Hum.Rec.Anlog 100 Unit/Ml 10 Ml Vial) 40 unit SUBCUT BEDTIME [facility] Last Admin: 09/06/21 21:38 Dose: 40 unit Documented by: ROSALIO Insulin Human Lispro (Insulin Lispro 100 Unit/Ml 3 Ml Vial) 0 unit SUBCUT QIDACHS [facility]; Protocol Last Admin: 09/07/21 08:10 Dose: 2 unit Documented by: HAYDEE Levothyroxine Sodium (Levothyroxine Sodium 200 Mcg Tablet) 200 mcg PO DAILY@0600 [facility] Last Admin: 09/07/21 05:41 Dose: 200 mcg Documented by: ROSALIO Losartan Potassium (Losartan Potassium 50 Mg Tablet) 50 mg PO DAILY [facility]; Protocol Last Admin: 09/07/21 08:08 Dose: 50 mg Documented by: HAYDEE Melatonin (Melatonin 3 Mg Tablet) 6 mg PO BEDTIME PRN PRN Reason: Insomnia Last Admin: 09/05/21 20:02 Dose: 6 mg Documented by: DARIEN Omeprazole (Omeprazole 20 Mg Capsule.Dr) 20 mg PO DAILY@0630 [facility] Last Admin: 09/07/21 05:41 Dose: 20 mg Documented by: ROSALIO Oxycodone HCl (Oxycodone Hcl Immed Release 5 Mg Tablet) 10 mg PO Q4H PRN PRN Reason: Pain, Severe (Pain Scale 7-10) Oxycodone HCl (Oxycodone Hcl Immed Release 5 Mg Tablet) 5 mg PO Q4H PRN PRN Reason: Pain, Moderate (Pain Scale 4-6 Pharmacy Consult (Consult Rx Perform Med Rec) 1 each MISCELLANE ONCE PRN PRN Reason: Consult order Pharmacy Consult (Consult Rx Vancomycin Dosing) 1 each MISCELLANE DAILY PRN PRN Reason: Consult order Pharmacy Consult (Consult Rx Vancomycin Dosing) 1 each MISCELLANE DAILY PRN PRN Reason: Consult order Senna (Sennosides 8.6 Mg Tablet) 17.2 mg PO BEDTIME PRN PRN Reason: Constipation Last Admin: 09/04/21 22:29 Dose: 17.2 mg Documented by: LANI Sodium Chloride (0.9 % Sodium Chloride Flush 3 Ml Syringe) 3 ml IVFLUSH [facility] Last Admin: 09/07/21 08:10 Dose: 3 ml Documented by: HAYDEE <Xiomara Moss PA-C - Last Filed: 09/07/21 09:37> Labs CBC & Chem 7: : 09/07/21 05:53 09/07/21 05:53 <Xiomara Moss PA-C - Last Filed: 09/07/21 09:37> Labs: Laboratory Results - last 24 hr 09/06/21 09/06/21 09/06/21 11:15 15:15 18:20 MCV MCH MCHC RDW Plt Count MPV Absolute Nucleated RBC Nucleated RBC % (auto) Anion Gap Estim Creat Clear Calc Estimated GFR POC Glucose 195 H 195 H Fasting Glucose Calcium Vancomycin Trough 10.2 09/06/21 09/07/21 09/07/21 19:55 05:53 05:53 MCV 87.6 MCH 29.3 MCHC 33.4 RDW 12.3 Plt Count 364 MPV 9.7 Absolute Nucleated RBC 0.000 Nucleated RBC % (auto) 0.0 Anion Gap 12 Estim Creat Clear Calc 110.3 Estimated GFR > 60 POC Glucose 501 H* Fasting Glucose 341 H Calcium 8.5 Vancomycin Trough 09/07/21 07:02 MCV MCH MCHC RDW Plt Count MPV Absolute Nucleated RBC Nucleated RBC % (auto) Anion Gap Estim Creat Clear Calc Estimated GFR POC Glucose 345 H Fasting Glucose Calcium Vancomycin Trough <Xiomara Moss PA-C - Last Filed: 09/07/21 09:37> Microbiology Microbiology Results: Microbiology 09/06/21 Unknown Gram Stain - Final Buttock Left <Xiomara Moss PA-C - Last Filed: 09/07/21 09:37> Procedures Date of Service Date of Service: 09/07/21 <Xiomara Moss PA-C - Last Filed: 09/07/21 09:37> Progress Note: A&P Assessment and plan (1) Abscess, gluteal cleft: Status: Acute <Xiomara Moss PA-C - Last Filed: 09/07/21 09:37> Assessment and Plan: Status post I and D in the OR She feels much better Much less induration on the left buttock Packing in place - pulled out a little bit Continue IV antibiotics Plan to pull out entire packing tomorrow Seen and examined independently -agree with KERRY Moss <Steven Trent MD - Last Filed: 09/07/21 13:42> (2) Uncontrolled diabetes mellitus: Status: Acute <Xiomara Moss PA-C - Last Filed: 09/07/21 09:37> (3) Status post incision and drainage: Status: Acute <Xiomara Moss PA-C - Last Filed: 09/07/21 09:37> Plan 50 year old female admitted with cellulitis/abscess of left buttock now POD #1 s/p incision drainage of a large left buttock abscess, with sharp excisional debridement of the cavity. She is sore at the drainage site. The site continues with significant induration and erythema however no persistent fluctuance or purulent drainage noted. Packing slightly advanced. Will remove packing tomorrow- continue with fluffs, abd dressing and mesh underwear. Change daily and after use of bathroom. Will likely need to remain inpatient for IV abx for the next couple of days. Await abscess cultures. Discussed with patient better control of her blood sugars in assistance with management with healing. <Xiomara Moss PA-C - Last Filed: 09/07/21 09:37> Fall Risk Details Current Medications: Current Medications Acetaminophen (Acetaminophen 325 Mg Tablet) 650 mg PO Q6H PRN PRN Reason: Pain, Mild (Pain Scale 1-3) Albuterol Sulfate (Albuterol Sulfate 90 Mcg 8 Gm Inhaler) 2 puff INHALE Q8H PRN PRN Reason: shortness of breath or wheezing Albuterol Sulfate (Albuterol Sulfate (0.083%) 2.5 Mg/3 Ml Vial.Neb) 2.5 mg INHALE ONCE PRN PRN Reason: Wheezing Albuterol/Ipratropium (Albuterol/Iprat 2.5/0.5mg 3 Ml Ampul.Neb) 3 ml INHALE Q6H PRN PRN Reason: wheezing Atorvastatin Calcium (Atorvastatin Calcium 40 Mg Tablet) 40 mg PO DAILY [facility] Last Admin: 09/07/21 08:08 Dose: 40 mg Documented by: Benzonatate (Benzonatate 100 Mg Capsule) 100 mg PO TID PRN PRN Reason: Cough Last Admin: 09/05/21 20:02 Dose: 100 mg Documented by: Cyanocobalamin (Cyanocobalamin (Vitamin B-12) 1,000 Mcg Tablet) 1,000 mcg PO DAILY [facility] Last Admin: 09/07/21 08:08 Dose: 1,000 mcg Documented by: Dextrose (Dextrose 50 % 25 Gm/50 Ml Vial) 25 gm IVPUSH Q15M PRN; Protocol PRN Reason: per Hypoglycemia Standing Ord. Doxepin HCl (Doxepin Hcl 10 Mg Capsule) 10 mg PO BEDTIME [facility] Last Admin: 09/06/21 21:38 Dose: 10 mg Documented by: Enoxaparin Sodium (Enoxaparin Sodium 40 Mg/0.4 Ml Syringe) 40 mg SUBCUT Q24H [facility] Last Admin: 09/06/21 21:38 Dose: 40 mg Documented by: Ergocalciferol (Ergocalciferol (Vitamin D2) 1,250 Mcg Capsule) 1,250 mcg PO Sa [facility] Last Admin: 09/04/21 07:44 Dose: Not Given Documented by: Escitalopram Oxalate (Escitalopram Oxalate 20 Mg Tablet) 20 mg PO DAILY [facility] Last Admin: 09/07/21 08:08 Dose: 20 mg Documented by: Fentanyl (Fentanyl Citrate/Pf 100 Mcg/2 Ml Vial) 25 mcg IVPUSH Q5M PRN; Protocol PRN Reason: Pain, Moderate (Pain Scale 4-6 Fluticasone Propionate (Fluticasone Propionate 100 Mcg Blst.W.Dev) 1 puff INHALE BID [facility] Last Admin: 09/07/21 07:39 Dose: Not Given Documented by: Gabapentin (Gabapentin 400 Mg Capsule) 800 mg PO TID [facility] Last Admin: 09/07/21 08:08 Dose: 800 mg Documented by: Glucose (Glucose Gel 15 Gm Gel..Gram.) 15 gm PO Q15M PRN; Protocol PRN Reason: per Hypoglycemia Standing Ord. Hydromorphone HCl (Hydromorphone Hcl 0.5 Mg/0.5 Ml Syringe) 0.5 mg IVPUSH Q3H PRN; Protocol PRN Reason: Pain, Severe (Pain Scale 7-10) Last Admin: 09/07/21 06:24 Dose: 0.5 mg Documented by: Hydromorphone HCl (Hydromorphone Hcl 0.5 Mg/0.5 Ml Syringe) 0.25 mg IVPUSH Q5M PRN; Protocol PRN Reason: Pain, Severe (Pain Scale 7-10) Last Admin: 09/06/21 14:18 Dose: 0.25 mg Documented by: Piperacillin Sod/Tazobactam (Sod 3.375 gm/ Sodium Chloride) 50 mls @ 100 mls/hr IV Q6H [facility] Last Infusion: 09/07/21 08:24 Dose: Infused Documented by: Vancomycin HCl 1,500 mg/ (Sodium Chloride) 500 mls @ 333.333 mls/hr IV Q12H [facility] Last Admin: 09/07/21 08:10 Dose: 333.3 mls/hr Documented by: Promethazine HCl 12.5 mg/ (Sodium Chloride) 50.5 mls @ 202 mls/hr IV ONCE PRN PRN Reason: Nausea and Vomiting Insulin Glargine (Insulin Glargine,Hum.Rec.Anlog 100 Unit/Ml 10 Ml Vial) 40 unit SUBCUT BEDTIME [facility] Last Admin: 09/06/21 21:38 Dose: 40 unit Documented by: Insulin Human Lispro (Insulin Lispro 100 Unit/Ml 3 Ml Vial) 0 unit SUBCUT QIDACHS [facility]; Protocol Last Admin: 09/07/21 08:10 Dose: 2 unit Documented by: Levothyroxine Sodium (Levothyroxine Sodium 200 Mcg Tablet) 200 mcg PO DAILY@0600 [facility] Last Admin: 09/07/21 05:41 Dose: 200 mcg Documented by: Losartan Potassium (Losartan Potassium 50 Mg Tablet) 50 mg PO DAILY [facility]; Protocol Last Admin: 09/07/21 08:08 Dose: 50 mg Documented by: Melatonin (Melatonin 3 Mg Tablet) 6 mg PO BEDTIME PRN PRN Reason: Insomnia Last Admin: 09/05/21 20:02 Dose: 6 mg Documented by: Omeprazole (Omeprazole 20 Mg Capsule.) 20 mg PO DAILY@0630 [facility] Last Admin: 09/07/21 05:41 Dose: 20 mg Documented by: Oxycodone HCl (Oxycodone Hcl Immed Release 5 Mg Tablet) 10 mg PO Q4H PRN PRN Reason: Pain, Severe (Pain Scale 7-10) Oxycodone HCl (Oxycodone Hcl Immed Release 5 Mg Tablet) 5 mg PO Q4H PRN PRN Reason: Pain, Moderate (Pain Scale 4-6 Pharmacy Consult (Consult Rx Perform Med Rec) 1 each MISCELLANE ONCE PRN PRN Reason: Consult order Pharmacy Consult (Consult Rx Vancomycin Dosing) 1 each MISCELLANE DAILY PRN PRN Reason: Consult order Pharmacy Consult (Consult Rx Vancomycin Dosing) 1 each MISCELLANE DAILY PRN PRN Reason: Consult order Senna (Sennosides 8.6 Mg Tablet) 17.2 mg PO BEDTIME PRN PRN Reason: Constipation Last Admin: 09/04/21 22:29 Dose: 17.2 mg Documented by: Sodium Chloride (0.9 % Sodium Chloride Flush 3 Ml Syringe) 3 ml IVFLUSH [facility] Last Admin: 09/07/21 08:10 Dose: 3 ml Documented by: <Xiomara Moss PA-C - Last Filed: 09/07/21 09:37> Time Spent With Patient Time: Total time spent is greater than 50% in coordination of care (as documented) at patient's floor/unit and/or counseling patient: <Xiomara Moss PA-C - Last Filed: 09/07/21 09:37> Quality Stroke Does the patient have a stroke diagnosis?: No <Xiomara Moss PA-C - Last Filed: 09/07/21 09:37> VTE Prior VTE?: No <Xiomara Moss PA-C - Last Filed: 09/07/21 09:37> VTE Risk Level:: Medical - moderate - high <SASHA Lakhani Last Filed: 09/07/21 09:37> VTE Device Contraindication: Treatment Not Indicated <Xiomara Moss PA-C - Last Filed: 09/07/21 09:37> VTE Drug Contraindication: N/A - Med Ordered <SASHA Lakhani Last Filed: 09/07/21 09:37>
[2021-09-07 11:00] VITALS: BP 142/68; PULSE 68; RESP 20; TEMP 36.6; O2SAT 96
[2021-09-07 11:06] LABS: Glucose, Whole Blood 214 mg/dL (60-115)
--- NOTE | 2021-09-07 11:21 | HE.PHANOTE ---
Addendum entered by Asa Ventura RPh 09/07/21 18:39: trough 13.9, continue current dose. next trough 09/08@1800. Trough ordered early since patient is obese and I am concerned for dose dumping. Original Note: VANCOMYCIN ADDENDUM: PATIENT TO GET A NEW LEVEL TONIGHT AT 1800, SCR STEADY AT 0.79, CONTINUE SAME DOSE AND REASSESS AFTER LEVEL
--- NOTE | 2021-09-07 12:09 | HO.PM.IMPN ---
Subjective Subjective Date of Service: 09/07/21 Interval History: the patient was seen and evaluated this morning Laying in bed, still complaining of pain at the surgical site Denies any fever, chills or shortness of breath No reported other overnight events. Systemic review: No fever, chills or weakness No chest pain, palpitation No shortness of breath or coughing No abdominal pain, nausea or vomiting No urinary symptoms still having pain and drainage from the wound area Physical Exam Vital Signs: Vital Signs: Last Vital Signs Temp 98 F 09/07/21 11:00 Pulse 68 09/07/21 11:00 Resp 20 09/07/21 11:00 BP 142/68 H 09/07/21 11:00 Pulse Ox 96 09/07/21 11:00 BMI result Body Mass Index 44.7 Const: Other: Constitutional : Alert, oriented, not in distress Neck : Normal inspection, Supple Cardiovascular : RRR, S1 S2, no lower extremity edema Respiratory : Good bilateral air entry, no crackles, wheezes or rhonchi Gastrointestinal: soft, lax, Normal bowel sounds, Non tender Skin : Warm, Dry, surgical wound area covered with dressing with surrounding erythema and induration Neurological : Alert & oriented x3, No focal deficit Objective Data Active Medications Acetaminophen (Acetaminophen 325 Mg Tablet) 650 mg PO Q6H PRN PRN Reason: Pain, Mild (Pain Scale 1-3) Albuterol Sulfate (Albuterol Sulfate 90 Mcg 8 Gm Inhaler) 2 puff INHALE Q8H PRN PRN Reason: shortness of breath or wheezing Albuterol Sulfate (Albuterol Sulfate (0.083%) 2.5 Mg/3 Ml Vial.Neb) 2.5 mg INHALE ONCE PRN PRN Reason: Wheezing Albuterol/Ipratropium (Albuterol/Iprat 2.5/0.5mg 3 Ml Ampul.Neb) 3 ml INHALE Q6H PRN PRN Reason: wheezing Atorvastatin Calcium (Atorvastatin Calcium 40 Mg Tablet) 40 mg PO DAILY [facility] Last Admin: 09/07/21 08:08 Dose: 40 mg Documented by: HAYDEE Benzonatate (Benzonatate 100 Mg Capsule) 100 mg PO TID PRN PRN Reason: Cough Last Admin: 09/05/21 20:02 Dose: 100 mg Documented by: DARIEN Cyanocobalamin (Cyanocobalamin (Vitamin B-12) 1,000 Mcg Tablet) 1,000 mcg PO DAILY [facility] Last Admin: 09/07/21 08:08 Dose: 1,000 mcg Documented by: HAYDEE Dextrose (Dextrose 50 % 25 Gm/50 Ml Vial) 25 gm IVPUSH Q15M PRN; Protocol PRN Reason: per Hypoglycemia Standing Ord. Doxepin HCl (Doxepin Hcl 10 Mg Capsule) 10 mg PO BEDTIME [facility] Last Admin: 09/06/21 21:38 Dose: 10 mg Documented by: ROSALIO Enoxaparin Sodium (Enoxaparin Sodium 40 Mg/0.4 Ml Syringe) 40 mg SUBCUT Q24H [facility] Last Admin: 09/06/21 21:38 Dose: 40 mg Documented by: ROSALIO Ergocalciferol (Ergocalciferol (Vitamin D2) 1,250 Mcg Capsule) 1,250 mcg PO Sa [facility] Last Admin: 09/04/21 07:44 Dose: Not Given Documented by: BRIGETTE Non-Admin Reason: See Note Comments: this rn did not have this patient on 09/03/21 when med was due. medication was never administered. Escitalopram Oxalate (Escitalopram Oxalate 20 Mg Tablet) 20 mg PO DAILY [facility] Last Admin: 09/07/21 08:08 Dose: 20 mg Documented by: HAYDEE Fentanyl (Fentanyl Citrate/Pf 100 Mcg/2 Ml Vial) 25 mcg IVPUSH Q5M PRN; Protocol PRN Reason: Pain, Moderate (Pain Scale 4-6 Fluticasone Propionate (Fluticasone Propionate 100 Mcg Blst.W.Dev) 1 puff INHALE BID [facility] Last Admin: 09/07/21 07:39 Dose: Not Given Documented by: HEATHER Non-Admin Reason: Patient Refused Gabapentin (Gabapentin 400 Mg Capsule) 800 mg PO TID [facility] Last Admin: 09/07/21 08:08 Dose: 800 mg Documented by: HAYDEE Glucose (Glucose Gel 15 Gm Gel..Gram.) 15 gm PO Q15M PRN; Protocol PRN Reason: per Hypoglycemia Standing Ord. Hydromorphone HCl (Hydromorphone Hcl 0.5 Mg/0.5 Ml Syringe) 0.5 mg IVPUSH Q3H PRN; Protocol PRN Reason: Pain, Severe (Pain Scale 7-10) Last Admin: 09/07/21 10:28 Dose: 0.5 mg Documented by: HAYDEE Hydromorphone HCl (Hydromorphone Hcl 0.5 Mg/0.5 Ml Syringe) 0.25 mg IVPUSH Q5M PRN; Protocol PRN Reason: Pain, Severe (Pain Scale 7-10) Last Admin: 09/06/21 14:18 Dose: 0.25 mg Documented by: ROMA Piperacillin Sod/Tazobactam (Sod 3.375 gm/ Sodium Chloride) 50 mls @ 100 mls/hr IV Q6H [facility] Last Infusion: 09/07/21 08:24 Dose: 0 mls/hr Documented by: HAYDEE Vancomycin HCl 1,500 mg/ (Sodium Chloride) 500 mls @ 333.333 mls/hr IV Q12H [facility] Last Admin: 09/07/21 08:10 Dose: 333.3 mls/hr Documented by: HAYDEE Promethazine HCl 12.5 mg/ (Sodium Chloride) 50.5 mls @ 202 mls/hr IV ONCE PRN PRN Reason: Nausea and Vomiting Insulin Glargine (Insulin Glargine,Hum.Rec.Anlog 100 Unit/Ml 10 Ml Vial) 40 unit SUBCUT BEDTIME [facility] Last Admin: 09/06/21 21:38 Dose: 40 unit Documented by: ROSALIO Insulin Human Lispro (Insulin Lispro 100 Unit/Ml 3 Ml Vial) 0 unit SUBCUT QIDACHS [facility]; Protocol Last Admin: 09/07/21 08:10 Dose: 2 unit Documented by: HAYDEE Levothyroxine Sodium (Levothyroxine Sodium 200 Mcg Tablet) 200 mcg PO DAILY@0600 [facility] Last Admin: 09/07/21 05:41 Dose: 200 mcg Documented by: ROSALIO Losartan Potassium (Losartan Potassium 50 Mg Tablet) 50 mg PO DAILY [facility]; Protocol Last Admin: 09/07/21 08:08 Dose: 50 mg Documented by: HAYDEE Melatonin (Melatonin 3 Mg Tablet) 6 mg PO BEDTIME PRN PRN Reason: Insomnia Last Admin: 09/05/21 20:02 Dose: 6 mg Documented by: DARIEN Omeprazole (Omeprazole 20 Mg Capsule.) 20 mg PO DAILY@06 [facility] Last Admin: 09/07/21 05:41 Dose: 20 mg Documented by: ROSALIO Oxycodone HCl (Oxycodone Hcl Immed Release 5 Mg Tablet) 10 mg PO Q4H PRN PRN Reason: Pain, Severe (Pain Scale 7-10) Oxycodone HCl (Oxycodone Hcl Immed Release 5 Mg Tablet) 5 mg PO Q4H PRN PRN Reason: Pain, Moderate (Pain Scale 4-6 Pharmacy Consult (Consult Rx Perform Med Rec) 1 each MISCELLANE ONCE PRN PRN Reason: Consult order Pharmacy Consult (Consult Rx Vancomycin Dosing) 1 each MISCELLANE DAILY PRN PRN Reason: Consult order Pharmacy Consult (Consult Rx Vancomycin Dosing) 1 each MISCELLANE DAILY PRN PRN Reason: Consult order Senna (Sennosides 8.6 Mg Tablet) 17.2 mg PO BEDTIME PRN PRN Reason: Constipation Last Admin: 09/04/21 22:29 Dose: 17.2 mg Documented by: LANI Sodium Chloride (0.9 % Sodium Chloride Flush 3 Ml Syringe) [facility] Last Admin: 09/07/21 08:10 Dose: 3 ml Documented by: HAYDEE Labs CBC & Chem 7: 09/07/21 05:53 09/07/21 05:53 Labs: Laboratory Results - last 24 hr 09/06/21 09/06/21 09/06/21 15:15 18:20 19:55 MCV MCH MCHC RDW Plt Count MPV Absolute Nucleated RBC Nucleated RBC % (auto) Anion Gap Estim Creat Clear Calc Estimated GFR POC Glucose 195 H 501 H* Fasting Glucose Calcium Vancomycin Trough 10.2 09/07/21 09/07/21 09/07/21 05:53 05:53 07:02 MCV 87.6 MCH 29.3 MCHC 33.4 RDW 12.3 Plt Count 364 MPV 9.7 Absolute Nucleated RBC 0.000 Nucleated RBC % (auto) 0.0 Anion Gap 12 Estim Creat Clear Calc 110.3 Estimated GFR > 60 POC Glucose 345 H Fasting Glucose 341 H Calcium 8.5 Vancomycin Trough 09/07/21 11:03 MCV MCH MCHC RDW Plt Count MPV Absolute Nucleated RBC Nucleated RBC % (auto) Anion Gap Estim Creat Clear Calc Estimated GFR POC Glucose 214 H Fasting Glucose Calcium Vancomycin Trough Microbiology Microbiology Results: Microbiology 09/06/21 Unknown Gram Stain - Final Buttock Left Assessment and Plan (1) Status post incision and drainage: Status: Acute (2) Cellulitis of buttock: Status: Acute (3) Abscess, gluteal cleft: Status: Acute Plan 50F presented with perianal erythema and pain Perianal cellulitis ID appreciated continue vanc, zosyn s\p I and D blood\wound cultures pending DM with hyperglycemia Increase Lantus insulin to 60 units SSI low carb diet (patient poorly compliant) morbid obesity weight loss hyopthyroid synthroid htn losartan, hld statin reason for continued hospitalization: severe pain, iv abx, risk for decompensation to sepsis due to DM will need surgical follow-up for the wound Quality Stroke Does the patient have a stroke diagnosis?: No VTE Prior VTE?: No VTE Risk Level:: Medical - moderate - high VTE Device Contraindication: Treatment Not Indicated VTE Drug Contraindication: N/A - Med Ordered
--- NOTE | 2021-09-07 14:36 | HO.POSTANES ---
Post Anesthesia Evaluation Post Anesthesia Evaluation Vital Signs: Vital Signs Temp Pulse Resp BP Pulse Ox 09/07/21 11:00 98 F 68 20 142/68 H 96 09/07/21 07:00 97 F 65 20 139/73 98 09/07/21 03:24 97.5 F 79 18 143/76 H 97 Anesthesia: General Mental Status: Awake Pain Control: Satisfactory (issues with pain control) Nausea/Vomiting: None Hydration: Adequate Anesthesia-Related Issues: No Anes. Related Issues
--- NOTE | 2021-09-07 14:40 | PM.IDPN ---
Subjective Subjective Date of Service: 09/07/21 Critical Care Time (minutes): 15 Comment: patient feels better today Objective Data Labs CBC & Chem 7: 09/07/21 05:53 09/07/21 05:53 Labs: Laboratory Results - last 24 hr 09/06/21 09/06/21 09/06/21 15:15 18:20 19:55 WBC RBC Hgb Hct MCV MCH MCHC RDW Plt Count MPV Absolute Nucleated RBC Nucleated RBC % (auto) Sodium Potassium Chloride Carbon Dioxide Anion Gap BUN Creatinine Estim Creat Clear Calc Estimated GFR POC Glucose 195 H 501 H* Fasting Glucose Calcium Vancomycin Trough 10.2 09/07/21 09/07/21 09/07/21 05:53 05:53 07:02 WBC 11.8 H RBC 4.44 Hgb 13.0 Hct 38.9 MCV 87.6 MCH 29.3 MCHC 33.4 RDW 12.3 Plt Count 364 MPV 9.7 Absolute Nucleated RBC 0.000 Nucleated RBC % (auto) 0.0 Sodium 137 Potassium 4.3 Chloride 101 Carbon Dioxide 28 Anion Gap 12 BUN 9 Creatinine 0.79 Estim Creat Clear Calc 110.3 Estimated GFR > 60 POC Glucose 345 H Fasting Glucose 341 H Calcium 8.5 Vancomycin Trough 09/07/21 11:03 WBC RBC Hgb Hct MCV MCH MCHC RDW Plt Count MPV Absolute Nucleated RBC Nucleated RBC % (auto) Sodium Potassium Chloride Carbon Dioxide Anion Gap BUN Creatinine Estim Creat Clear Calc Estimated GFR POC Glucose 214 H Fasting Glucose Calcium Vancomycin Trough Microbiology Microbiology Results: Microbiology 09/06/21 Unknown Buttock Left Gram Stain - Final 09/06/21 Unknown Buttock Left Routine Culture - Final Strep agalactiae (Grp B) 09/03/21 17:01 Blood - Venous Blood Culture - Preliminary No growth after 48 hours. 09/03/21 16:47 Blood - Venous Blood Culture - Preliminary No growth after 48 hours. Physical Exam Vital Signs: Vital Signs: Last Vital Signs Temp 98 F 09/07/21 11:00 Pulse 68 09/07/21 11:00 Resp 20 09/07/21 11:00 BP 142/68 H 09/07/21 11:00 Pulse Ox 96 09/07/21 11:00 BMI result Body Mass Index 44.7 HEENT: Head: Yes normal to inspection Resp: Effort & Inspection: normal respiratory effort Cardio: Rate: regular rate Rhythm: regular rhythm GI: Palpation (GI): Soft to palpation and nontender Extrem: Other: improved pain buttock area Assessment and Plan Assessment and plan (1) Status post incision and drainage: Problem details: Buttock abscess drained per Surgery Cultures pending Status: Acute (2) Cellulitis of buttock: Status: Acute Plan Continue antibiotics Await culture results before switching to po. Time Spent With Patient Time: Total time spent is greater than 50% in coordination of care (as documented) at patient's floor/unit and/or counseling patient:
[2021-09-07 15:11] VITALS: BP 161/65; PULSE 76; RESP 18; TEMP 36.6; O2SAT 95
[2021-09-07 15:36] LABS: Glucose, Whole Blood 206 mg/dL (60-115)
[2021-09-07 18:30] LABS: Vancomycin Trough 13.9 mcg/mL (10.0-20.0)
[2021-09-07 19:08] VITALS: BP 152/82; PULSE 72; RESP 18; TEMP 36.4; O2SAT 93
[2021-09-07] MEDS: Doxepin HCl 10 MG CAPSULE PO (20:31)
[2021-09-07] MEDS: Melatonin 3 MG TABLET 6 MG PO (20:31)
[2021-09-07] MEDS: oxyCODONE HCl Immed Release 5 MG TABLET 10 MG PO (20:32)
[2021-09-07] MEDS: Acetaminophen 325 MG TABLET 650 MG PO (20:32)
[2021-09-07] MEDS: Enoxaparin Sodium 40 MG/0.4 ML SYRINGE SUBCUT (20:34)
[2021-09-07 21:00] LABS: Glucose, Whole Blood 351 mg/dL (60-115)
[2021-09-07] MEDS: Insulin Glargine,Hum.rec.anlog 100 UNIT/ML 10 ML VIAL 60 UNIT SUBCUT (21:51)
[2021-09-07 23:46] VITALS: BP 139/80; PULSE 75; RESP 17; TEMP 36.2; O2SAT 95
[2021-09-08] VITALS (7 sets, daily range): BP systolic 142–167; BP diastolic 64–75; PULSE 54–81; RESP 14–18; TEMP 36.1–37; O2SAT 95–98
[2021-09-08] MEDS: Piperacillin Sodium/Tazobactam 3.375 GM in 0.9 % Sodium Chloride 50 ML IV ×4 (01:12→20:58)
[2021-09-08] MEDS: HYDROmorphone HCl 0.5 MG/0.5 ML SYRINGE IVPUSH (03:44)
[2021-09-08] MEDS: Sennosides 8.6 MG TABLET 17.2 MG PO (04:13)
[2021-09-08] MEDS: Acetaminophen 325 MG TABLET 650 MG PO ×2 (04:45→12:03)
[2021-09-08] MEDS: oxyCODONE HCl Immed Release 5 MG TABLET 10 MG PO ×5 (04:45→21:15)
[2021-09-08] MEDS: Omeprazole 20 MG CAPSULE.DR PO (05:58)
[2021-09-08] MEDS: Levothyroxine Sodium 200 MCG TABLET PO (05:58)
[2021-09-08 06:04] LABS: Hemoglobin 13.2 g/dl (12.0-16.0); Mean Corpuscular Hemoglobin 29.3 pg (27.0-33.0); Mean Corpuscular Volume 88.7 fL (80.0-98.0); Mean Platelet Volume 9.8 fL (9.4-12.3); Platelet Count 338 X10*3/uL (160-400); Red Blood Count 4.51 X10*6/uL (4.20-5.50); Red Cell Distribution Width 12.8 % (11.0-16.0); White Blood Count 8.7 X10*3/uL (4.8-10.8)
[2021-09-08 06:34] LABS: Anion Gap 10 (12-20); Blood Urea Nitrogen 10 mg/dL (9-16); Calcium 8.4 mg/dL (8.4-10.2); Carbon Dioxide 32 mmol/L (22-29); Chloride 101 mmol/L (96-108); Creatinine Clr Calc Pharmacy 111.8; Estimated Glomerular Filt Rate > 60; Glucose Random 307 mg/dL (60-115); Potassium 4.4 mmol/L (3.3-5.1); Sodium 139 mmol/L (135-145)
[2021-09-08 07:30] LABS: Glucose, Whole Blood 273 mg/dL (60-115)
--- NOTE | 2021-09-08 08:06 | HE.PHANOTE ---
Vancomycin Dosing Addendum Vancomycin trough scheduled for 09/08/21 @1800. continue with current regimen for now. Cr stable.
[2021-09-08] MEDS: 0.9 % Sodium Chloride Flush 3 ML SYRINGE IVFLUSH ×2 (08:32→16:51)
[2021-09-08] MEDS: Insulin Lispro 100 UNIT/ML 3 ML VIAL SUBCUT ×4 (08:34→20:59)
[2021-09-08] MEDS: vancomycin HCL 1,500 MG in 0.9 % Sodium Chloride 500 ML 333 MG IV (08:36)
[2021-09-08] MEDS: Losartan Potassium 50 MG TABLET PO (08:38)
[2021-09-08] MEDS: Atorvastatin Calcium 40 MG TABLET PO (08:38)
[2021-09-08] MEDS: Escitalopram Oxalate 20 MG TABLET PO (08:38)
[2021-09-08] MEDS: Cyanocobalamin (Vitamin B-12) 1,000 MCG TABLET 1000 MCG PO (08:38)
[2021-09-08] MEDS: Gabapentin 400 MG CAPSULE 800 MG PO ×3 (08:39→20:57)
--- NOTE | 2021-09-08 09:16 | P.PNGS_ITS ---
Subjective Subjective Date of Service: 09/08/21 <Xiomara Moss PA-C - Last Filed: 09/08/21 09:21> 09/08/21 <Steven Trent MD - Last Filed: 09/08/21 10:06> Interval history: Feels much better this morning, area much less sore. Comfortable with oral analgesics. Packing fell out last night. <Xiomara Moss PA-C - Last Filed: 09/08/21 09:21> Physical Exam Vital Signs: Vital Signs: Last Vital Signs Temp 96.9 F 09/08/21 07:12 Pulse 54 09/08/21 07:12 Resp 17 09/08/21 07:12 BP 146/70 H 09/08/21 07:12 Pulse Ox 95 09/08/21 07:12 BMI result Body Mass Index 44.7 <SASHA Lakhani Last Filed: 09/08/21 09:21> Const: General: comfortable, no acute distress and alert <Xiomara Moss PA-C - Last Filed: 09/08/21 09:21> Orientation/consciousness: patient oriented x3 <Xiomara Moss PA-C - Last Filed: 09/08/21 09:21> Resp: Effort & Inspection: normal respiratory effort <SASHA Lakhani Last Filed: 09/08/21 09:21> Skin: Other: abscess/drainage site- packing out, remains open, induration and erythema now only located surrounding incision site and is significantly improved, much less tender, no further fluctuance appreciated <Xiomara Moss PA-C - Last Filed: 09/08/21 09:21> Neuro: General: patient oriented x3 <SASHA Lakhani Last Filed: 09/08/21 09:21> Objective Data Active Medications Acetaminophen (Acetaminophen 325 Mg Tablet) 650 mg PO Q6H PRN PRN Reason: Pain, Mild (Pain Scale 1-3) Last Admin: 09/08/21 04:45 Dose: 650 mg Documented by: RICARDO Albuterol Sulfate (Albuterol Sulfate 90 Mcg 8 Gm Inhaler) 2 puff INHALE Q8H PRN PRN Reason: shortness of breath or wheezing Albuterol Sulfate (Albuterol Sulfate (0.083%) 2.5 Mg/3 Ml Vial.Neb) 2.5 mg INHALE ONCE PRN PRN Reason: Wheezing Albuterol/Ipratropium (Albuterol/Iprat 2.5/0.5mg 3 Ml Ampul.Neb) 3 ml INHALE Q6H PRN PRN Reason: wheezing Atorvastatin Calcium (Atorvastatin Calcium 40 Mg Tablet) 40 mg PO DAILY [facility] [place] Last Admin: 09/08/21 08:38 Dose: 40 mg Documented by: ROSALINDA Benzonatate (Benzonatate 100 Mg Capsule) 100 mg PO TID PRN PRN Reason: Cough Last Admin: 09/05/21 20:02 Dose: 100 mg Documented by: DARIEN Cyanocobalamin (Cyanocobalamin (Vitamin B-12) 1,000 Mcg Tablet) 1,000 mcg PO D AILY [facility] [place] Last Admin: 09/08/21 08:38 Dose: 1,000 mcg Documented by: ROSALINDA Dextrose (Dextrose 50 % 25 Gm/50 Ml Vial) 25 gm IVPUSH Q15M PRN; Protocol PRN Reason: per Hypoglycemia Standing Ord. Doxepin HCl (Doxepin Hcl 10 Mg Capsule) 10 mg PO BEDTIME [facility] [place] Last Admin: 09/07/21 20:31 Dose: 10 mg Documented by: RICARDO Enoxaparin Sodium (Enoxaparin Sodium 40 Mg/0.4 Ml Syringe) 40 mg SUBCUT Q24H [facility] [place] Last Admin: 09/07/21 20:34 Dose: 40 mg Documented by: RICARDO Ergocalciferol (Ergocalciferol (Vitamin D2) 1,250 Mcg Capsule) 1,250 mcg PO Sa [facility] [place] Last Admin: 09/04/21 07:44 Dose: Not Given Documented by: BRIGETTE Non-Admin Reason: See Note Comments: this rn did not have this patient on 09/03/21 when med was due. medication was never administered. Escitalopram Oxalate (Escitalopram Oxalate 20 Mg Tablet) 20 mg PO DAILY [facility] [place] Last Admin: 09/08/21 08:38 Dose: 20 mg Documented by: ROSALINDA Fentanyl (Fentanyl Citrate/Pf 100 Mcg/2 Ml Vial) 25 mcg IVPUSH Q5M PRN; Protocol PRN Reason: Pain, Moderate (Pain Scale 4-6 Fluticasone Propionate (Fluticasone Propionate 100 Mcg Blst.W.Dev) 1 puff INHALE BID [facility] [place] Last Admin: 09/08/21 08:12 Dose: Not Given Documented by: HEATHER Non-Admin Reason: Patient Refused Gabapentin (Gabapentin 400 Mg Capsule) 800 mg PO TID [facility] [place] Last Admin: 09/08/21 08:39 Dose: 800 mg Documented by: ROSALINDA Glucose (Glucose Gel 15 Gm Gel..Gram.) 15 gm PO Q15M PRN; Protocol PRN Reason: per Hypoglycemia Standing Ord. Hydromorphone HCl (Hydromorphone Hcl 0.5 Mg/0.5 Ml Syringe) 0.5 mg IVPUSH Q3H PRN; Protocol PRN Reason: Pain, Severe (Pain Scale 7-10) Last Admin: 09/08/21 03:44 Dose: 0.5 mg Documented by: RICARDO Hydromorphone HCl (Hydromorphone Hcl 0.5 Mg/0.5 Ml Syringe) 0.25 mg IVPUSH Q5M PRN; Protocol PRN Reason: Pain, Severe (Pain Scale 7-10) Last Admin: 09/06/21 14:18 Dose: 0.25 mg Documented by: ROMA Piperacillin Sod/Tazobactam (Sod 3.375 gm/ Sodium Chloride) 50 mls @ 100 mls/hr IV Q6H [facility] [place] Last Infusion: 09/08/21 08:40 Dose: 0 mls/hr Documented by: ROSALINDA Vancomycin HCl 1,500 mg/ (Sodium Chloride) 500 mls @ 333.333 mls/hr IV Q12H [facility] [place] Last Admin: 09/08/21 08:36 Dose: 333 mls/hr Documented by: ROSALINDA Insulin Glargine (Insulin Glargine,Hum.Rec.Anlog 100 Unit/Ml 10 Ml Vial) 60 unit SUBCUT BEDTIME [facility] [place] Last Admin: 09/07/21 21:51 Dose: 60 unit Documented by: RICARDO Insulin Human Lispro (Insulin Lispro 100 Unit/Ml 3 Ml Vial) 0 unit SUBCUT QIDACHS [facility] [place]; Protocol Last Admin: 09/08/21 08:34 Dose: 6 unit Documented by: ROSALINDA Comments: fsbs 273 Levothyroxine Sodium (Levothyroxine Sodium 200 Mcg Tablet) 200 mcg PO DAILY@0600 [facility] [place] Last Admin: 09/08/21 05:58 Dose: 200 mcg Documented by: RICARDO Losartan Potassium (Losartan Potassium 50 Mg Tablet) 50 mg PO DAILY [facility] [place]; Protocol Last Admin: 09/08/21 08:38 Dose: 50 mg Documented by: ROSALINDA Melatonin (Melatonin 3 Mg Tablet) 6 mg PO BEDTIME PRN PRN Reason: Insomnia Last Admin: 09/07/21 20:31 Dose: 6 mg Documented by: RICARDO Omeprazole (Omeprazole 20 Mg Capsule.Dr) 20 mg PO DAILY@0630 [facility] [place] Last Admin: 09/08/21 05:58 Dose: 20 mg Documented by: RICARDO Oxycodone HCl (Oxycodone Hcl Immed Release 5 Mg Tablet) 10 mg PO Q4H PRN PRN Reason: Pain, Severe (Pain Scale 7-10) Last Admin: 09/08/21 04:45 Dose: 10 mg Documented by: RICARDO Oxycodone HCl (Oxycodone Hcl Immed Release 5 Mg Tablet) 5 mg PO Q4H PRN PRN Reason: Pain, Moderate (Pain Scale 4-6 Pharmacy Consult (Consult Rx Perform Med Rec) 1 each MISCELLANE ONCE PRN PRN Reason: Consult order Pharmacy Consult (Consult Rx Vancomycin Dosing) 1 each MISCELLANE DAILY PRN PRN Reason: Consult order Pharmacy Consult (Consult Rx Vancomycin Dosing) 1 each MISCELLANE DAILY PRN PRN Reason: Consult order Senna (Sennosides 8.6 Mg Tablet) 17.2 mg PO BEDTIME PRN PRN Reason: Constipation Last Admin: 09/08/21 04:13 Dose: 17.2 mg Documented by: RICARDO Sodium Chloride (0.9 % Sodium Chloride Flush 3 Ml Syringe) [facility] Last Admin: 09/08/21 08:32 Dose: 3 ml Documented by: ROSALINDA <Xiomara Moss PA-C - Last Filed: 09/08/21 09:21> Labs CBC & Chem 7: : 09/08/21 05:35 09/08/21 05:35 <Xiomara Moss PA-C - Last Filed: 09/08/21 09:21> Labs: Laboratory Results - last 24 hr 09/07/21 09/07/21 09/07/21 11:03 15:14 17:59 MCV MCH MCHC RDW Plt Count MPV Absolute Nucleated RBC Nucleated RBC % (auto) Anion Gap Estim Creat Clear Calc Estimated GFR POC Glucose 214 H 206 H Random Glucose Calcium Vancomycin Trough 13.9 09/07/21 09/08/21 09/08/21 19:12 05:35 05:35 MCV 88.7 MCH 29.3 MCHC 33.0 RDW 12.8 Plt Count 338 MPV 9.8 Absolute Nucleated RBC 0.000 Nucleated RBC % (auto) 0.0 Anion Gap 10 L Estim Creat Clear Calc 111.8 Estimated GFR > 60 POC Glucose 351 H* Random Glucose 307 H Calcium 8.4 Vancomycin Trough 09/08/21 07:16 MCV MCH MCHC RDW Plt Count MPV Absolute Nucleated RBC Nucleated RBC % (auto) Anion Gap Estim Creat Clear Calc Estimated GFR POC Glucose 273 H Random Glucose Calcium Vancomycin Trough <Xiomara Moss PA-C - Last Filed: 09/08/21 09:21> Microbiology Microbiology Results: Microbiology 09/06/21 Unknown Gram Stain - Final Buttock Left Routine Culture - Final Strep agalactiae (Grp B) <Xiomara Moss PA-C - Last Filed: 09/08/21 09:21> Procedures Date of Service Date of Service: 09/08/21 <Xiomara Moss PA-C - Last Filed: 09/08/21 09:21> Progress Note: A&P Assessment and plan (1) Status post incision and drainage: Status: Acute <Xiomara Moss PA-C - Last Filed: 09/08/21 09:21> Assessment and Plan: She feels much better Packing came off I&D site much less indurated, clean Hot Sitz baths Continue IV antibiotics Possibly DC home tomorrow - rule keep for 1 more day of IV antibiotics Seen and examined independently - agree with KERRY Moss <Steven Trent MD - Last Filed: 09/08/21 10:06> (2) Abscess, gluteal cleft: Status: Acute <Xiomara Moss PA-C - Last Filed: 09/08/21 09:21> Plan 50 year old female admitted with cellulitis/abscess of left buttock now POD #2 s/p incision drainage of a large left buttock abscess, with sharp excisional debridement of the cavity. Abscess site remains open, induration and erythema significantly improved. No purulent drainage noted. Stable for discharge to home today on PO abx. Can f/u in office with Dr. Trent in 2 weeks. Educated dry dressing to area daily and after bathroom, blood sugar control at home. Patient understands and is comfortable with plan. <Xiomara Moss PA-C - Last Filed: 09/08/21 09:21> Fall Risk Details Current Medications: Current Medications Acetaminophen (Acetaminophen 325 Mg Tablet) 650 mg PO Q6H PRN PRN Reason: Pain, Mild (Pain Scale 1-3) Last Admin: 09/08/21 04:45 Dose: 650 mg Documented by: Albuterol Sulfate (Albuterol Sulfate 90 Mcg 8 Gm Inhaler) 2 puff INHALE Q8H PRN PRN Reason: shortness of breath or wheezing Albuterol Sulfate (Albuterol Sulfate (0.083%) 2.5 Mg/3 Ml Vial.Neb) 2.5 mg INHALE ONCE PRN PRN Reason: Wheezing Albuterol/Ipratropium (Albuterol/Iprat 2.5/0.5mg 3 Ml Ampul.Neb) 3 ml INHALE Q6H PRN PRN Reason: wheezing Atorvastatin Calcium (Atorvastatin Calcium 40 Mg Tablet) 40 mg PO DAILY [facility] [place] Last Admin: 09/08/21 08:38 Dose: 40 mg Documented by: Benzonatate (Benzonatate 100 Mg Capsule) 100 mg PO TID PRN PRN Reason: Cough Last Admin: 09/05/21 20:02 Dose: 100 mg Documented by: Cyanocobalamin (Cyanocobalamin (Vitamin B-12) 1,000 Mcg Tablet) 1,000 mcg PO DAILY [facility] [place] Last Admin: 09/08/21 08:38 Dose: 1,000 mcg Documented by: Dextrose (Dextrose 50 % 25 Gm/50 Ml Vial) 25 gm IVPUSH Q15M PRN; Protocol PRN Reason: per Hypoglycemia Standing Ord. Doxepin HCl (Doxepin Hcl 10 Mg Capsule) 10 mg PO BEDTIME [facility] [place] Last Admin: 09/07/21 20:31 Dose: 10 mg Documented by: Enoxaparin Sodium (Enoxaparin Sodium 40 Mg/0.4 Ml Syringe) 40 mg SUBCUT Q24H [facility] [place] Last Admin: 09/07/21 20:34 Dose: 40 mg Documented by: Ergocalciferol (Ergocalciferol (Vitamin D2) 1,250 Mcg Capsule) 1,250 mcg PO Sa [facility] [place] Last Admin: 09/04/21 07:44 Dose: Not Given Documented by: Escitalopram Oxalate (Escitalopram Oxalate 20 Mg Tablet) 20 mg PO DAILY [facility] [place] Last Admin: 09/08/21 08:38 Dose: 20 mg Documented by: Fentanyl (Fentanyl Citrate/Pf 100 Mcg/2 Ml Vial) 25 mcg IVPUSH Q5M PRN; Protocol PRN Reason: Pain, Moderate (Pain Scale 4-6 Fluticasone Propionate (Fluticasone Propionate 100 Mcg Blst.W.Dev) 1 puff INHALE BID [facility] [place] Last Admin: 09/08/21 08:12 Dose: Not Given Documented by: Gabapentin (Gabapentin 400 Mg Capsule) 800 mg PO TID [facility] [place] Last Admin: 09/08/21 08:39 Dose: 800 mg Documented by: Glucose (Glucose Gel 15 Gm Gel..Gram.) 15 gm PO Q15M PRN; Protocol PRN Reason: per Hypoglycemia Standing Ord. Hydromorphone HCl (Hydromorphone Hcl 0.5 Mg/0.5 Ml Syringe) 0.5 mg IVPUSH Q3H PRN; Protocol PRN Reason: Pain, Severe (Pain Scale 7-10) Last Admin: 09/08/21 03:44 Dose: 0.5 mg Documented by: Hydromorphone HCl (Hydromorphone Hcl 0.5 Mg/0.5 Ml Syringe) 0.25 mg IVPUSH Q5M PRN; Protocol PRN Reason: Pain, Severe (Pain Scale 7-10) Last Admin: 09/06/21 14:18 Dose: 0.25 mg Documented by: Piperacillin Sod/Tazobactam (Sod 3.375 gm/ Sodium Chloride) 50 mls @ 100 mls/hr IV Q6H [facility] [place] Last Infusion: 09/08/21 08:40 Dose: Infused Documented by: Vancomycin HCl 1,500 mg/ (Sodium Chloride) 500 mls @ 333.333 mls/hr IV Q12H [facility] [place] Last Admin: 09/08/21 08:36 Dose: 333 mls/hr Documented by: Insulin Glargine (Insulin Glargine,Hum.Rec.Anlog 100 Unit/Ml 10 Ml Vial) 60 unit SUBCUT BEDTIME [facility] [place] Last Admin: 09/07/21 21:51 Dose: 60 unit Documented by: Insulin Human Lispro (Insulin Lispro 100 Unit/Ml 3 Ml Vial) 0 unit SUBCUT QIDACHS [facility] [place]; Protocol Last Admin: 09/08/21 08:34 Dose: 6 unit Documented by: Levothyroxine Sodium (Levothyroxine Sodium 200 Mcg Tablet) 200 mcg PO DAILY@0600 [facility] [place] Last Admin: 09/08/21 05:58 Dose: 200 mcg Documented by: Losartan Potassium (Losartan Potassium 50 Mg Tablet) 50 mg PO DAILY [facility] [place]; Protocol Last Admin: 09/08/21 08:38 Dose: 50 mg Documented by: Melatonin (Melatonin 3 Mg Tablet) 6 mg PO BEDTIME PRN PRN Reason: Insomnia Last Admin: 09/07/21 20:31 Dose: 6 mg Documented by: Omeprazole (Omeprazole 20 Mg Capsule.Dr) 20 mg PO DAILY@0630 [facility] [place] Last Admin: 09/08/21 05:58 Dose: 20 mg Documented by: Oxycodone HCl (Oxycodone Hcl Immed Release 5 Mg Tablet) 10 mg PO Q4H PRN PRN Reason: Pain, Severe (Pain Scale 7-10) Last Admin: 09/08/21 04:45 Dose: 10 mg Documented by: Oxycodone HCl (Oxycodone Hcl Immed Release 5 Mg Tablet) 5 mg PO Q4H PRN PRN Reason: Pain, Moderate (Pain Scale 4-6 Pharmacy Consult (Consult Rx Perform Med Rec) 1 each MISCELLANE ONCE PRN PRN Reason: Consult order Pharmacy Consult (Consult Rx Vancomycin Dosing) 1 each MISCELLANE DAILY PRN PRN Reason: Consult order Pharmacy Consult (Consult Rx Vancomycin Dosing) 1 each MISCELLANE DAILY PRN PRN Reason: Consult order Senna (Sennosides 8.6 Mg Tablet) 17.2 mg PO BEDTIME PRN PRN Reason: Constipation Last Admin: 09/08/21 04:13 Dose: 17.2 mg Documented by: Sodium Chloride (0.9 % Sodium Chloride Flush 3 Ml Syringe) 3 ml IVFLUSH QSHIFT [facility] [place] Last Admin: 09/08/21 08:32 Dose: 3 ml Documented by: <Xiomara Moss PA-C - Last Filed: 09/08/21 09:21> Time Spent With Patient Time: Total time spent is greater than 50% in coordination of care (as documented) at patient's floor/unit and/or counseling patient: <Xiomara Moss PA-C - Last Filed: 09/08/21 09:21> Quality Stroke Does the patient have a stroke diagnosis?: No <Xiomara Moss PA-C - Last Filed: 09/08/21 09:21> VTE Prior VTE?: No <Xiomara Moss PA-C - Last Filed: 09/08/21 09:21> VTE Risk Level:: Medical - moderate - high <SASHA Lakhani Last Filed: 09/08/21 09:21> VTE Device Contraindication: Treatment Not Indicated <SASHA Lakhani Last Filed: 09/08/21 09:21> VTE Drug Contraindication: N/A - Med Ordered <SASHA Lakhani Last Filed: 09/08/21 09:21>
--- NOTE | 2021-09-08 10:10 | MHC.CDI.CONC ---
CDI Concurrent Query Documentation Clarification: PHYSICIAN'S DOCUMENTATION REQUEST Date of Query: 09/08/21 1011 Patient Name: Tammy Coombs Admit Date: 09/03/21 Dear Doctor, A review of the medical record indicates additional documentation may be needed. Please review below and update the documentation accordingly. Clinical Indicators: Documentation includes the conditions of cellulitis and diabetes: Additional clinical indicators in the record include Risk Factors/Clinical Indicators/Treatments ID [id number] - Buttock (perianal) cellulitis/diabetes mellitus. Very indurated area and elevated glucose, pt to see surgery to ensure no deep tissue concerns with hyperglycemia, IV antibiotics. PN: Diabetes with hyperglycemia, increase Lantus insulin. POC glucose - [phone]/[phone] History of uncontrolled Diabetes. Please clarify the relationship between these conditions: Cellulitis due to Diabetes Mellitus: Yes, [ ] is related to / associated with / due to [ ] No, [ ] is not related to / associated with / due to [ ] Unable to determine Use of terms such as suspected, likely, concern for, or probable (associated with a specific diagnosis that is being evaluated, monitored, or treated as if it exists) are acceptable and can be coded in the inpatient setting, when documented at the time of discharge. Thank you, Kellee Garza [facility] [place], CDIS Extension: [phone] Please use your independent medical judgment in providing your response. THIS QUERY IS PART OF THE PERMANENT MEDICAL RECORD Provider Response: Other Other Diagnosis: noted
--- NOTE | 2021-09-08 10:15 | HO.PM.IMPN ---
Subjective Subjective Date of Service: 09/08/21 Interval History: The patient was seen and evaluated this morning Laying in bed, pain significantly improved at the surgical site Denies any fever, chills or shortness of breath No reported other overnight events. Systemic review: No fever, chills or weakness No chest pain, palpitation No shortness of breath or coughing No abdominal pain, nausea or vomiting No urinary symptoms still having pain and drainage from the wound area but improved generally Physical Exam Vital Signs: Vital Signs: Last Vital Signs Temp 96.9 F 09/08/21 07:12 Pulse 54 09/08/21 07:12 Resp 17 09/08/21 07:12 BP 146/70 H 09/08/21 07:12 Pulse Ox 95 09/08/21 07:12 BMI result Body Mass Index 44.7 Const: Other: Constitutional : Alert, oriented, not in distress Neck : Normal inspection, Supple Cardiovascular : RRR, S1 S2, no lower extremity edema Respiratory : Good bilateral air entry, no crackles, wheezes or rhonchi Gastrointestinal: soft, lax, Normal bowel sounds, Non tender Skin : Warm, Dry, surgical wound area covered with dressing with surrounding erythema and induration Neurological : Alert & oriented x3, No focal deficit Objective Data Active Medications Acetaminophen (Acetaminophen 325 Mg Tablet) 650 mg PO Q6H PRN PRN Reason: Pain, Mild (Pain Scale 1-3) Last Admin: 09/08/21 04:45 Dose: 650 mg Documented by: RICARDO Albuterol Sulfate (Albuterol Sulfate 90 Mcg 8 Gm Inhaler) 2 puff INHALE Q8H PRN PRN Reason: shortness of breath or wheezing Albuterol Sulfate (Albuterol Sulfate (0.083%) 2.5 Mg/3 Ml Vial.Neb) 2.5 mg INHALE ONCE PRN PRN Reason: Wheezing Albuterol/Ipratropium (Albuterol/Iprat 2.5/0.5mg 3 Ml Ampul.Neb) 3 ml INHALE Q6H PRN PRN Reason: wheezing Atorvastatin Calcium (Atorvastatin Calcium 40 Mg Tablet) 40 mg PO DAILY [facility] Last Admin: 09/08/21 08:38 Dose: 40 mg Documented by: ROSALINDA Benzonatate (Benzonatate 100 Mg Capsule) 100 mg PO TID PRN PRN Reason: Cough Last Admin: 09/05/21 20:02 Dose: 100 mg Documented by: CASTILAide Cyanocobalamin (Cyanocobalamin (Vitamin B-12) 1,000 Mcg Tablet) 1,000 mcg PO DAILY [facility] Last Admin: 09/08/21 08:38 Dose: 1,000 mcg Documented by: ROSALINDA Dextrose (Dextrose 50 % 25 Gm/50 Ml Vial) 25 gm IVPUSH Q15M PRN; Protocol PRN Reason: per Hypoglycemia Standing Ord. Doxepin HCl (Doxepin Hcl 10 Mg Capsule) 10 mg PO BEDTIME [facility] Last Admin: 09/07/21 20:31 Dose: 10 mg Documented by: RICARDO Enoxaparin Sodium (Enoxaparin Sodium 40 Mg/0.4 Ml Syringe) 40 mg SUBCUT Q24H [facility] Last Admin: 09/07/21 20:34 Dose: 40 mg Documented by: RICARDO Ergocalciferol (Ergocalciferol (Vitamin D2) 1,250 Mcg Capsule) 1,250 mcg PO Sa [facility] Last Admin: 09/04/21 07:44 Dose: Not Given Documented by: BRIGETTE Non-Admin Reason: See Note Comments: this rn did not have this patient on 09/03/21 when med was due. medication was never administered. Escitalopram Oxalate (Escitalopram Oxalate 20 Mg Tablet) 20 mg PO DAILY [facility] Last Admin: 09/08/21 08:38 Dose: 20 mg Documented by: ROSALINDA Fentanyl (Fentanyl Citrate/Pf 100 Mcg/2 Ml Vial) 25 mcg IVPUSH Q5M PRN; Protocol PRN Reason: Pain, Moderate (Pain Scale 4-6 Fluticasone Propionate (Fluticasone Propionate 100 Mcg Blst.W.Dev) 1 puff INHALE BID [facility] Last Admin: 09/08/21 08:12 Dose: Not Given Documented by: HEATHER Non-Admin Reason: Patient Refused Gabapentin (Gabapentin 400 Mg Capsule) 800 mg PO TID [facility] Last Admin: 09/08/21 08:39 Dose: 800 mg Documented by: ROSALINDA Glucose (Glucose Gel 15 Gm Gel..Gram.) 15 gm PO Q15M PRN; Protocol PRN Reason: per Hypoglycemia Standing Ord. Hydromorphone HCl (Hydromorphone Hcl 0.5 Mg/0.5 Ml Syringe) 0.5 mg IVPUSH Q3H PRN; Protocol PRN Reason: Pain, Severe (Pain Scale 7-10) Last Admin: 09/08/21 03:44 Dose: 0.5 mg Documented by: RICARDO Hydromorphone HCl (Hydromorphone Hcl 0.5 Mg/0.5 Ml Syringe) 0.25 mg IVPUSH Q5M PRN; Protocol PRN Reason: Pain, Severe (Pain Scale 7-10) Last Admin: 09/06/21 14:18 Dose: 0.25 mg Documented by: ROMA Piperacillin Sod/Tazobactam (Sod 3.375 gm/ Sodium Chloride) 50 mls @ 100 mls/hr IV Q6H [facility] Last Infusion: 09/08/21 08:40 Dose: 0 mls/hr Documented by: ROSALINDA Vancomycin HCl 1,500 mg/ (Sodium Chloride) 500 mls @ 333.333 mls/hr IV Q12H [facility] Last Admin: 09/08/21 08:36 Dose: 333 mls/hr Documented by: ROSALINDA Insulin Glargine (Insulin Glargine,Hum.Rec.Anlog 100 Unit/Ml 10 Ml Vial) 60 unit SUBCUT BEDTIME [facility] Last Admin: 09/07/21 21:51 Dose: 60 unit Documented by: RICARDO Insulin Human Lispro (Insulin Lispro 100 Unit/Ml 3 Ml Vial) 0 unit SUBCUT QIDACHS [facility]; Protocol Last Admin: 09/08/21 08:34 Dose: 6 unit Documented by: ROSALINDA Comments: fsbs 273 Levothyroxine Sodium (Levothyroxine Sodium 200 Mcg Tablet) 200 mcg PO DAILY@0600 [facility] Last Admin: 09/08/21 05:58 Dose: 200 mcg Documented by: RICARDO Losartan Potassium (Losartan Potassium 50 Mg Tablet) 50 mg PO DAILY [facility]; Protocol Last Admin: 09/08/21 08:38 Dose: 50 mg Documented by: ROSALINDA Melatonin (Melatonin 3 Mg Tablet) 6 mg PO BEDTIME PRN PRN Reason: Insomnia Last Admin: 09/07/21 20:31 Dose: 6 mg Documented by: RICARDO Omeprazole (Omeprazole 20 Mg Capsule.Dr) 20 mg PO DAILY@0630 [facility] Last Admin: 09/08/21 05:58 Dose: 20 mg Documented by: RICARDO Oxycodone HCl (Oxycodone Hcl Immed Release 5 Mg Tablet) 10 mg PO Q4H PRN PRN Reason: Pain, Severe (Pain Scale 7-10) Last Admin: 09/08/21 04:45 Dose: 10 mg Documented by: RICARDO Oxycodone HCl (Oxycodone Hcl Immed Release 5 Mg Tablet) 5 mg PO Q4H PRN PRN Reason: Pain, Moderate (Pain Scale 4-6 Pharmacy Consult (Consult Rx Perform Med Rec) 1 each MISCELLANE ONCE PRN PRN Reason: Consult order Pharmacy Consult (Consult Rx Vancomycin Dosing) 1 each MISCELLANE DAILY PRN PRN Reason: Consult order Pharmacy Consult (Consult Rx Vancomycin Dosing) 1 each MISCELLANE DAILY PRN PRN Reason: Consult order Senna (Sennosides 8.6 Mg Tablet) 17.2 mg PO BEDTIME PRN PRN Reason: Constipation Last Admin: 09/08/21 04:13 Dose: 17.2 mg Documented by: RICARDO Sodium Chloride (0.9 % Sodium Chloride Flush 3 Ml Syringe) 3 ml [facility] Last Admin: 09/08/21 08:32 Dose: 3 ml Documented by: ROSALINDA Labs CBC & Chem 7: 09/08/21 05:35 09/08/21 05:35 Labs: Laboratory Results - last 24 hr 09/07/21 09/07/21 09/07/21 11:03 15:14 17:59 MCV MCH MCHC RDW Plt Count MPV Absolute Nucleated RBC Nucleated RBC % (auto) Anion Gap Estim Creat Clear Calc Estimated GFR POC Glucose 214 H 206 H Random Glucose Calcium Vancomycin Trough 13.9 Random Vancomycin 09/07/21 09/08/21 09/08/21 19:12 05:35 05:35 MCV 88.7 MCH 29.3 MCHC 33.0 RDW 12.8 Plt Count 338 MPV 9.8 Absolute Nucleated RBC 0.000 Nucleated RBC % (auto) 0.0 Anion Gap 10 L Estim Creat Clear Calc 111.8 Estimated GFR > 60 POC Glucose 351 H* Random Glucose 307 H Calcium 8.4 Vancomycin Trough Random Vancomycin 09/08/21 09/08/21 07:16 Unknown MCV MCH MCHC RDW Plt Count MPV Absolute Nucleated RBC Nucleated RBC % (auto) Anion Gap Estim Creat Clear Calc Estimated GFR POC Glucose 273 H Random Glucose Calcium Vancomycin Trough Random Vancomycin Cancelled Microbiology Microbiology Results: Microbiology 09/06/21 Unknown Gram Stain - Final Buttock Left Routine Culture - Final Strep agalactiae (Grp B) Assessment and Plan (1) Status post incision and drainage: Status: Acute (2) Cellulitis of buttock: Status: Acute Plan 50F presented with perianal erythema and pain Perianal cellulitis s\p I and D surgery input appreciated, 1 more day of IV antibiotics continue vanc, zosyn blood\wound cultures pending DM with hyperglycemia Increase Lantus insulin to 70 units SSI low carb diet (patient poorly compliant) morbid obesity weight loss hyopthyroid synthroid htn losartan, hld statin reason for continued hospitalization: severe pain, iv abx, risk for decompensation to sepsis due to DM will need surgical follow-up for the wound Quality Stroke Does the patient have a stroke diagnosis?: No VTE Prior VTE?: No VTE Risk Level:: Medical - moderate - high VTE Device Contraindication: Treatment Not Indicated VTE Drug Contraindication: N/A - Med Ordered
[2021-09-08 10:42] LABS: Estimated Average Glucose 341 mg/dL; Hemoglobin A1c % 13.5 %
[2021-09-08 11:40] LABS: Glucose, Whole Blood 316 mg/dL (60-115)
--- NOTE | 2021-09-08 14:31 | MHC.CM.PN ---
PER PHYSICIAN ROUNDS, PLAN IS FOR PATIENT TO REMAIN ONE MORE NIGHT AND RETURN HOME TOMORROW. NIRALI GILMORE AND QUENTIN SCHROEDER MADE AWARE IN [facility] UNABLE TO SEE DAILY
[2021-09-08 16:09] LABS: Glucose, Whole Blood 411 mg/dL (60-115)
[2021-09-08 18:38] LABS: Vancomycin Trough 13.8 mcg/mL (10.0-20.0)
[2021-09-08 20:33] LABS: Glucose, Whole Blood 394 mg/dL (60-115)
[2021-09-08] MEDS: Enoxaparin Sodium 40 MG/0.4 ML SYRINGE SUBCUT (20:58)
[2021-09-08] MEDS: Insulin Glargine,Hum.rec.anlog 100 UNIT/ML 10 ML VIAL 60 UNIT SUBCUT (20:59)
[2021-09-08] MEDS: Doxepin HCl 10 MG CAPSULE PO (21:17)
[2021-09-09] MEDS: 0.9 % Sodium Chloride Flush 3 ML SYRINGE IVFLUSH ×2 (01:39→07:52)
[2021-09-09] MEDS: Piperacillin Sodium/Tazobactam 3.375 GM in 0.9 % Sodium Chloride 50 ML IV ×2 (01:39→07:52)
[2021-09-09] MEDS: oxyCODONE HCl Immed Release 5 MG TABLET 10 MG PO ×3 (01:44→11:49)
[2021-09-09] MEDS: Acetaminophen 325 MG TABLET 650 MG PO ×2 (01:45→07:50)
[2021-09-09 03:56] VITALS: BP 147/75; PULSE 72; RESP 16; TEMP 36.2; O2SAT 94
[2021-09-09] MEDS: Levothyroxine Sodium 200 MCG TABLET PO (05:28)
[2021-09-09] MEDS: Omeprazole 20 MG CAPSULE.DR PO (05:30)
[2021-09-09 07:22] VITALS: BP 148/84; PULSE 76; RESP 18; TEMP 36.1; O2SAT 97
[2021-09-09 07:30] LABS: Glucose, Whole Blood 234 mg/dL (60-115)
[2021-09-09] MEDS: Insulin Lispro 100 UNIT/ML 3 ML VIAL SUBCUT (07:48)
[2021-09-09] MEDS: Cyanocobalamin (Vitamin B-12) 1,000 MCG TABLET 1000 MCG PO (07:49)
[2021-09-09] MEDS: Losartan Potassium 50 MG TABLET PO (07:49)
[2021-09-09] MEDS: Escitalopram Oxalate 20 MG TABLET PO (07:49)
[2021-09-09] MEDS: Atorvastatin Calcium 40 MG TABLET PO (07:49)
[2021-09-09] MEDS: Gabapentin 400 MG CAPSULE 800 MG PO (07:50)
--- NOTE | 2021-09-09 10:35 | PM.PNGS ---
Subjective Subjective Date of Service: 09/09/21 <Xiomara Moss PA-C - Last Filed: 09/09/21 10:37> 09/09/21 <Steven Trent MD - Last Filed: 09/09/21 11:35> Interval history: Feels better. Pain is improving. Would like VNA to make sure things are getting better <Xiomara Moss PA-C - Last Filed: 09/09/21 10:37> Physical Exam Vital Signs: Vital Signs: Last Vital Signs Temp 96.9 F 09/09/21 07:22 Pulse 76 09/09/21 07:22 Resp 18 09/09/21 07:22 BP 148/84 H 09/09/21 07:22 Pulse Ox 97 09/09/21 07:22 BMI result Body Mass Index 44.7 <SASHA Lakhani Last Filed: 09/09/21 10:37> Const: General: comfortable, no acute distress and alert <Xiomara Moss PA-C - Last Filed: 09/09/21 10:37> Orientation/consciousness: patient oriented x3 <Xiomara Moss PA-C - Last Filed: 09/09/21 10:37> Skin: Other: incision site open- induration and erythema improved, no significant drainage noted, no purulence, no necrosis <Xiomara Moss PA-C - Last Filed: 09/09/21 10:37> Neuro: General: patient oriented x3 <Xiomara Moss PA-C - Last Filed: 09/09/21 10:37> Objective Data Active Medications Acetaminophen (Acetaminophen 325 Mg Tablet) 650 mg PO Q6H PRN PRN Reason: Pain, Mild (Pain Scale 1-3) Last Admin: 09/09/21 07:50 Dose: 650 mg Documented by: ROSALINDA Albuterol Sulfate (Albuterol Sulfate 90 Mcg 8 Gm Inhaler) 2 puff INHALE Q8H PRN PRN Reason: shortness of breath or wheezing Albuterol Sulfate (Albuterol Sulfate (0.083%) 2.5 Mg/3 Ml Vial.Neb) 2.5 mg INHALE ONCE PRN PRN Reason: Wheezing Albuterol/Ipratropium (Albuterol/Iprat 2.5/0.5mg 3 Ml Ampul.Neb) 3 ml INHALE Q6H PRN PRN Reason: wheezing Atorvastatin Calcium (Atorvastatin Calcium 40 Mg Tablet) 40 mg PO DAILY [facility] Last Admin: 09/09/21 07:49 Dose: 40 mg Documented by: ROSALINDA Benzonatate (Benzonatate 100 Mg Capsule) 100 mg PO TID PRN PRN Reason: Cough Last Admin: 09/05/21 20:02 Dose: 100 mg Documented by: DARIEN Cyanocobalamin (Cyanocobalamin (Vitamin B-12) 1,000 Mcg Tablet) 1,000 mcg PO DAILY [facility] Last Admin: 09/09/21 07:49 Dose: 1,000 mcg Documented by: ROSALINDA Dextrose (Dextrose 50 % 25 Gm/50 Ml Vial) 25 gm IVPUSH Q15M PRN; Protocol PRN Reason: per Hypoglycemia Standing Ord. Doxepin HCl (Doxepin Hcl 10 Mg Capsule) 10 mg PO BEDTIME [facility] Last Admin: 09/08/21 21:17 Dose: 10 mg Documented by: JESÚS Enoxaparin Sodium (Enoxaparin Sodium 40 Mg/0.4 Ml Syringe) 40 mg SUBCUT Q24H [facility] Last Admin: 09/08/21 20:58 Dose: 40 mg Documented by: JESÚS Ergocalciferol (Ergocalciferol (Vitamin D2) 1,250 Mcg Capsule) 1,250 mcg PO Sa [facility] Last Admin: 09/04/21 07:44 Dose: Not Given Documented by: BRIGETTE Non-Admin Reason: See Note Comments: this rn did not have this patient on 09/03/21 when med was due. medication was never administered. Escitalopram Oxalate (Escitalopram Oxalate 20 Mg Tablet) 20 mg PO DAILY [facility] Last Admin: 09/09/21 07:49 Dose: 20 mg Documented by: ROSALINDA Fentanyl (Fentanyl Citrate/Pf 100 Mcg/2 Ml Vial) 25 mcg IVPUSH Q5M PRN; Protocol PRN Reason: Pain, Moderate (Pain Scale 4-6 Fluticasone Propionate (Fluticasone Propionate 100 Mcg Blst.W.Dev) 1 puff INHALE BID [facility] Last Admin: 09/09/21 07:52 Dose: Not Given Documented by: VASYL Non-Admin Reason: Patient Refused Gabapentin (Gabapentin 400 Mg Capsule) 800 mg PO TID [facility] Last Admin: 09/09/21 07:50 Dose: 800 mg Documented by: ROSALINDA Glucose (Glucose Gel 15 Gm Gel..Gram.) 15 gm PO Q15M PRN; Protocol PRN Reason: per Hypoglycemia Standing Ord. Hydromorphone HCl (Hydromorphone Hcl 0.5 Mg/0.5 Ml Syringe) 0.5 mg IVPUSH Q3H PRN; Protocol PRN Reason: Pain, Severe (Pain Scale 7-10) Last Admin: 09/08/21 03:44 Dose: 0.5 mg Documented by: RICARDO Hydromorphone HCl (Hydromorphone Hcl 0.5 Mg/0.5 Ml Syringe) 0.25 mg IVPUSH Q5M PRN; Protocol PRN Reason: Pain, Severe (Pain Scale 7-10) Last Admin: 09/06/21 14:18 Dose: 0.25 mg Documented by: ROMA Piperacillin Sod/Tazobactam (Sod 3.375 gm/ Sodium Chloride) 50 mls @ 100 mls/hr IV Q6H [facility] Last Infusion: 09/09/21 10:16 Dose: 0 mls/hr Documented by: ROSALINDA Insulin Glargine (Insulin Glargine,Hum.Rec.Anlog 100 Unit/Ml 10 Ml Vial) 60 unit SUBCUT BEDTIME [facility] Last Admin: 09/08/21 20:59 Dose: 60 unit Documented by: JESÚS Insulin Human Lispro (Insulin Lispro 100 Unit/Ml 3 Ml Vial) 0 unit SUBCUT QIDACHS [facility]; Protocol Last Admin: 09/09/21 07:48 Dose: 4 unit Documented by: ROSALINDA Comments: fsbs 234 Levothyroxine Sodium (Levothyroxine Sodium 200 Mcg Tablet) 200 mcg PO DAILY@0600 [facility] Last Admin: 09/09/21 05:28 Dose: 200 mcg Documented by: MARJ Losartan Potassium (Losartan Potassium 50 Mg Tablet) 50 mg PO DAILY [facility]; Protocol Last Admin: 09/09/21 07:49 Dose: 50 mg Documented by: ROSALINDA Melatonin (Melatonin 3 Mg Tablet) 6 mg PO BEDTIME PRN PRN Reason: Insomnia Last Admin: 09/07/21 20:31 Dose: 6 mg Documented by: RICARDO Omeprazole (Omeprazole 20 Mg Capsule.Dr) 20 mg PO DAILY@0630 [facility] Last Admin: 09/09/21 05:30 Dose: 20 mg Documented by: MARJ Oxycodone HCl (Oxycodone Hcl Immed Release 5 Mg Tablet) 10 mg PO Q4H PRN PRN Reason: Pain, Severe (Pain Scale 7-10) Last Admin: 09/09/21 07:50 Dose: 10 mg Documented by: ROSALINDA Oxycodone HCl (Oxycodone Hcl Immed Release 5 Mg Tablet) 5 mg PO Q4H PRN PRN Reason: Pain, Moderate (Pain Scale 4-6 Pharmacy Consult (Consult Rx Perform Med Rec) 1 each MISCELLANE ONCE PRN PRN Reason: Consult order Pharmacy Consult (Consult Rx Vancomycin Dosing) 1 each MISCELLANE DAILY PRN PRN Reason: Consult order Pharmacy Consult (Consult Rx Vancomycin Dosing) 1 each MISCELLANE DAILY PRN PRN Reason: Consult order Senna (Sennosides 8.6 Mg Tablet) 17.2 mg PO BEDTIME PRN PRN Reason: Constipation Last Admin: 09/08/21 04:13 Dose: 17.2 mg Documented by: RICARDO Sodium Chloride (0.9 % Sodium Chloride Flush 3 Ml Syringe) 3 ml IVFLUSH QSHIFT [facility] Last Admin: 09/09/21 07:52 Dose: 3 ml Documented by: ROSALINDA <Xiomara Moss PA-C - Last Filed: 09/09/21 10:37> Labs CBC & Chem 7: : 09/08/21 05:35 09/08/21 05:35 <Xiomara Moss PA-C - Last Filed: 09/09/21 10:37> Labs: Laboratory Results - last 24 hr 09/08/21 09/08/21 09/08/21 05:35 10:59 16:06 POC Glucose 316 H 411 H* Estimat Average Glucose 341 Hemoglobin A1c % 13.5 Vancomycin Trough 09/08/21 09/08/21 09/09/21 18:09 20:29 07:21 POC Glucose 394 H* 234 H Estimat Average Glucose Hemoglobin A1c % Vancomycin Trough 13.8 <Xiomara Moss PA-C - Last Filed: 09/09/21 10:37> Microbiology Microbiology Results: Microbiology 09/03/21 17:01 Blood Culture - Final Blood - Venous No growth after 5 days. 09/03/21 16:47 Blood Culture - Final Blood - Venous No growth after 5 days. <Xiomara Moss PA-C - Last Filed: 09/09/21 10:37> Procedures Date of Service Date of Service: 09/09/21 <Xiomara Moss PA-C - Last Filed: 09/09/21 10:37> Progress Note: A&P Assessment and plan (1) Status post incision and drainage: Status: Acute <Xiomara Moss PA-C - Last Filed: 09/09/21 10:37> Assessment and Plan: open wound clean induration much improved no pus looks well ok to dc home instructed on wound care office ffup DM control seen and examined - agree w/KERRY Moss <Steven Trent MD - Last Filed: 09/09/21 11:35> (2) Abscess, gluteal cleft: Status: Acute <Xiomara Moss PA-C - Last Filed: 09/09/21 10:37> Plan 50 year old female admitted with cellulitis/abscess of left buttock now POD #3 s/p incision drainage of a large left buttock abscess, with sharp excisional debridement of the cavity. Abscess site remains open, induration and erythema significantly improved. Stable for discharge to home today on PO abx with VNA services. Can f/u in office with Dr. Trent in 2 weeks. Educated dry dressing to area daily and after bathroom, blood sugar control at home. Patient understands and is comfortable with plan. <Xiomara Moss PA-C - Last Filed: 09/09/21 10:37> Fall Risk Details Current Medications: Current Medications Acetaminophen (Acetaminophen 325 Mg Tablet) 650 mg PO Q6H PRN PRN Reason: Pain, Mild (Pain Scale 1-3) Last Admin: 09/09/21 07:50 Dose: 650 mg Documented by: Albuterol Sulfate (Albuterol Sulfate 90 Mcg 8 Gm Inhaler) 2 puff INHALE Q8H PRN PRN Reason: shortness of breath or wheezing Albuterol Sulfate (Albuterol Sulfate (0.083%) 2.5 Mg/3 Ml Vial.Neb) 2.5 mg INHALE ONCE PRN PRN Reason: Wheezing Albuterol/Ipratropium (Albuterol/Iprat 2.5/0.5mg 3 Ml Ampul.Neb) 3 ml INHALE Q6H PRN PRN Reason: wheezing Atorvastatin Calcium (Atorvastatin Calcium 40 Mg Tablet) 40 mg PO DAILY [facility] Last Admin: 09/09/21 07:49 Dose: 40 mg Documented by: Benzonatate (Benzonatate 100 Mg Capsule) 100 mg PO TID PRN PRN Reason: Cough Last Admin: 09/05/21 20:02 Dose: 100 mg Documented by: Cyanocobalamin (Cyanocobalamin (Vitamin B-12) 1,000 Mcg Tablet) 1,000 mcg PO DAILY [facility] Last Admin: 09/09/21 07:49 Dose: 1,000 mcg Documented by: Dextrose (Dextrose 50 % 25 Gm/50 Ml Vial) 25 gm IVPUSH Q15M PRN; Protocol PRN Reason: per Hypoglycemia Standing Ord. Doxepin HCl (Doxepin Hcl 10 Mg Capsule) 10 mg PO BEDTIME [facility] Last Admin: 09/08/21 21:17 Dose: 10 mg Documented by: Enoxaparin Sodium (Enoxaparin Sodium 40 Mg/0.4 Ml Syringe) 40 mg SUBCUT Q24H [facility] Last Admin: 09/08/21 20:58 Dose: 40 mg Documented by: Ergocalciferol (Ergocalciferol (Vitamin D2) 1,250 Mcg Capsule) 1,250 mcg PO Sa [facility] Last Admin: 09/04/21 07:44 Dose: Not Given Documented by: Escitalopram Oxalate (Escitalopram Oxalate 20 Mg Tablet) 20 mg PO DAILY [facility] Last Admin: 09/09/21 07:49 Dose: 20 mg Documented by: Fentanyl (Fentanyl Citrate/Pf 100 Mcg/2 Ml Vial) 25 mcg IVPUSH Q5M PRN; Protocol PRN Reason: Pain, Moderate (Pain Scale 4-6 Fluticasone Propionate (Fluticasone Propionate 100 Mcg Blst.W.Dev) 1 puff INHALE BID [facility] Last Admin: 09/09/21 07:52 Dose: Not Given Documented by: Gabapentin (Gabapentin 400 Mg Capsule) 800 mg PO TID [facility] Last Admin: 09/09/21 07:50 Dose: 800 mg Documented by: Glucose (Glucose Gel 15 Gm Gel..Gram.) 15 gm PO Q15M PRN; Protocol PRN Reason: per Hypoglycemia Standing Ord. Hydromorphone HCl (Hydromorphone Hcl 0.5 Mg/0.5 Ml Syringe) 0.5 mg IVPUSH Q3H PRN; Protocol PRN Reason: Pain, Severe (Pain Scale 7-10) Last Admin: 09/08/21 03:44 Dose: 0.5 mg Documented by: Hydromorphone HCl (Hydromorphone Hcl 0.5 Mg/0.5 Ml Syringe) 0.25 mg IVPUSH Q5M PRN; Protocol PRN Reason: Pain, Severe (Pain Scale 7-10) Last Admin: 09/06/21 14:18 Dose: 0.25 mg Documented by: Piperacillin Sod/Tazobactam (Sod 3.375 gm/ Sodium Chloride) 50 mls @ 100 mls/hr IV Q6H [facility] Last Infusion: 09/09/21 10:16 Dose: Infused Documented by: Insulin Glargine (Insulin Glargine,Hum.Rec.Anlog 100 Unit/Ml 10 Ml Vial) 60 unit SUBCUT BEDTIME [facility] Last Admin: 09/08/21 20:59 Dose: 60 unit Documented by: Insulin Human Lispro (Insulin Lispro 100 Unit/Ml 3 Ml Vial) 0 unit SUBCUT QIDACHS [facility]; Protocol Last Admin: 09/09/21 07:48 Dose: 4 unit Documented by: Levothyroxine Sodium (Levothyroxine Sodium 200 Mcg Tablet) 200 mcg PO DAILY@0600 [facility] Last Admin: 09/09/21 05:28 Dose: 200 mcg Documented by: Losartan Potassium (Losartan Potassium 50 Mg Tablet) 50 mg PO DAILY [facility]; Protocol Last Admin: 09/09/21 07:49 Dose: 50 mg Documented by: Melatonin (Melatonin 3 Mg Tablet) 6 mg PO BEDTIME PRN PRN Reason: Insomnia Last Admin: 09/07/21 20:31 Dose: 6 mg Documented by: Omeprazole (Omeprazole 20 Mg Capsule.) 20 mg PO DAILY@0630 [facility] Last Admin: 09/09/21 05:30 Dose: 20 mg Documented by: Oxycodone HCl (Oxycodone Hcl Immed Release 5 Mg Tablet) 10 mg PO Q4H PRN PRN Reason: Pain, Severe (Pain Scale 7-10) Last Admin: 09/09/21 07:50 Dose: 10 mg Documented by: Oxycodone HCl (Oxycodone Hcl Immed Release 5 Mg Tablet) 5 mg PO Q4H PRN PRN Reason: Pain, Moderate (Pain Scale 4-6 Pharmacy Consult (Consult Rx Perform Med Rec) 1 each MISCELLANE ONCE PRN PRN Reason: Consult order Pharmacy Consult (Consult Rx Vancomycin Dosing) 1 each MISCELLANE DAILY PRN PRN Reason: Consult order Pharmacy Consult (Consult Rx Vancomycin Dosing) 1 each MISCELLANE DAILY PRN PRN Reason: Consult order Senna (Sennosides 8.6 Mg Tablet) 17.2 mg PO BEDTIME PRN PRN Reason: Constipation Last Admin: 09/08/21 04:13 Dose: 17.2 mg Documented by: Sodium Chloride (0.9 % Sodium Chloride Flush 3 Ml Syringe) 3 ml IVFLUSH QSHIFT [facility] Last Admin: 09/09/21 07:52 Dose: 3 ml Documented by: <Xiomara Moss PA-C - Last Filed: 09/09/21 10:37> Time Spent With Patient Time: Total time spent is greater than 50% in coordination of care (as documented) at patient's floor/unit and/or counseling patient: <Xiomara Moss PA-C - Last Filed: 09/09/21 10:37> Quality Stroke Does the patient have a stroke diagnosis?: No <Xiomara Moss PA-C - Last Filed: 09/09/21 10:37> VTE Prior VTE?: No <SASHA Lakhani Last Filed: 09/09/21 10:37> VTE Risk Level:: Medical - moderate - high <Xiomara Moss PA-C - Last Filed: 09/09/21 10:37> VTE Device Contraindication: Treatment Not Indicated <SASHA Lakhani Last Filed: 09/09/21 10:37> VTE Drug Contraindication: N/A - Med Ordered <SASHA Lakhani Last Filed: 09/09/21 10:37>
--- NOTE | 2021-09-09 10:37 | PM.DS ---
DS: Providers Provider Date of Service: 09/09/21 Date of admission: 09/03/21 19:08 Primary care physician: Marissa Ward MD Consults: 09/03/21 19:08 Consult to Infectious Diseases Routine Consulting Provider: Cassy Marquez Reason for consultation: rec buttock cellulitis 09/05/21 12:34 Consult to General Surgery Routine Consulting Provider: Steven Trent Reason for consultation: perianal cellulitis DS: Diagnosis Discharge Diagnosis (1) Status post incision and drainage: Status: Acute (2) Abscess, gluteal cleft: Status: Acute (3) Cellulitis of buttock: Status: Acute DS: Summary Hospital Course Hospital Course: Admission note HPI 50-year-old female with a past medical history of hypertension, hyperlipidemia, diabetes, anxiety, depression, migraines, morbid obesity, sciatica, history of buttock cellulitis; presented to the hospital today with a chief complaint of buttock pain redness and swelling; mentioned that about a week ago she had a pimple that she picked and followed by she had increased redness and tenderness in the buttock area; mentions she has subjective chills.? Also complains of generalized weakness.?Mentions for the past 1 week she has not been complaint with her home insulins.?Denies any fevers cough or sputum production.?Denies any chest pain palpitations lightheadedness or dizziness.?Denies any numbness tingling or focal weakness.? Per ER team patient noted to have perianal redness, tender, warm, CT scan showed no evidence of abscess; patient was given IV vancomycin and Zosyn.? Also noted to have elevated blood sugars in 400s; given regular insulin IV push.? Admitted for further management. Hospital course The patient was admitted for evaluation of perianal cellulitis does and treated with IV vancomycin and Zosyn with evaluation by infectious disease and surgical team. Primarily treated with antibiotics but eventually had I&D done under anesthesia by surgery with significant amount of drainage growing group B Streptococcus that responded well to antibiotic treatment with significant improvement of the pain, erythema and discharge. Blood cultures remain negative during the hospital stay. Plan to be discharged on oral Augmentin for 1 more week and to follow-up with surgical team in the office with Dr. Trent. Her blood sugar was noted to be significantly elevated with HbA1c of 13.5. The patient was advised to lose weight and use her insulin as recommended and to follow-up with her primary for further recommendations. Time Spent with Patient Time attestation: Total time spent providing and/or coordinating discharge services: Discharge coordination time: Greater than 30 minutes Quality: Safe Use of Opioids Does Pt have an Active Cancer Diagnosis on the Problem List?: No Quality: Stroke Does the patient have a stroke diagnosis?: No Physical Exam Vital Signs: Vital Signs: Last Vital Signs Temp 96.9 F 09/09/21 07:22 Pulse 76 09/09/21 07:22 Resp 18 09/09/21 07:22 BP 148/84 H 09/09/21 07:22 Pulse Ox 97 09/09/21 07:22 BMI result Body Mass Index 44.7 Const: Other: Constitutional : Alert, oriented, not in distress Neck : Normal inspection, Supple Cardiovascular : RRR, S1 S2, no lower extremity edema Respiratory : Good bilateral air entry, no crackles, wheezes or rhonchi Gastrointestinal: soft, lax, Normal bowel sounds, Non tender Skin : Warm, Dry, surgical wound area covered with dressing with surrounding mild erythema and no tenderness Neurological : Alert & oriented x3, No focal deficit DS: Data Data Completed and Pending Completed studies during hospitalization [Text1]: Pending at discharge 09/06/21 13:47 Surgical [PTH] Routine Labs on day of discharge: Laboratory Results - last 24 hr 09/08/21 09/08/21 09/08/21 05:35 10:59 16:06 POC Glucose 316 H 411 H* Estimat Average Glucose 341 Hemoglobin A1c % 13.5 Vancomycin Trough 09/08/21 09/08/21 09/09/21 18:09 20:29 07:21 POC Glucose 394 H* 234 H Estimat Average Glucose Hemoglobin A1c % Vancomycin Trough 13.8 Discharge Plan Discharge Patient Disposition: Home Health Service Discharge Diagnosis: gluteal abscess and cellulitis Referrals: Daphne SCHROEDER [Outside] - 1 Week Marissa Ward MD [Primary Care Provider] - 1 Week Steven Trent MD [Physician] - 2 Weeks Discharge Medications: New oxycodone 5 mg Tablet 5 mg PO Q4H PRN (Reason: Pain, Moderate (Pain Scale 4-6) Qty: 20 0RF amoxicillin-pot clavulanate 875-125 mg tablet 1 tab PO BID Qty: 14 0RF Continued doxepin 10 mg capsule 10 - 20 mg PO BEDTIME 0RF ergocalciferol (vitamin D2) 1,250 mcg (50,000 unit) capsule 1,250 mcg PO QWEEK 90 Days Qty: 13 3RF Flovent HFA 110 mcg/actuation HFA aerosol inhaler 1 puff inhalation Q12H Qty: 12 4RF Rx Instructions: administer with spacer Flovent Diskus 100 mcg/actuation blister with device 1 inh PO BID Qty: 60 2RF gabapentin 800 mg tablet 800 mg PO TID Qty: 84 3RF losartan 50 mg tablet 50 mg PO DAILY Qty: 90 0RF ipratropium-albuterol 0.5 mg-3 mg(2.5 mg base)/3 mL solution for nebulization 3 ml inhalation Q6-8H PRN (Reason: wheezing) Qty: 90 0RF omeprazole 20 mg capsule,delayed release(DR/EC) 20 mg PO DAILY 90 Days Qty: 90 0RF atorvastatin 40 mg tablet 40 mg PO DAILY 90 Days Qty: 90 0RF cyanocobalamin (vitamin B-12) 1,000 mcg tablet 1,000 mcg PO DAILY 90 Days Qty: 90 0RF acetaminophen [Tylenol Extra Strength] 500 mg tablet 500 mg PO Q6H PRN (Reason: pain or fever) Qty: 20 0RF naproxen 500 mg tablet 500 mg PO BID PRN (Reason: pain) 10 Days Qty: 20 0RF insulin lispro 100 unit/mL insulin pen See Rx Instructions .ROUTE .COMPLEX 0RF Rx Instructions: sliding scale Tresiba FlexTouch U-200 200 unit/mL (3 mL) insulin pen 95 unit subcut BEDTIME 0RF bupropion HCl 100 mg tablet sustained-release 12 hr 1 tab PO DAILY 0RF escitalopram oxalate 20 mg tablet 20 mg PO DAILY 0RF levothyroxine 200 mcg tablet 200 mcg PO DAILY Qty: 90 3RF Rx Instructions: take with Levothyroxine 50 mcg albuterol sulfate 90 mcg/actuation HFA aerosol inhaler 2 inh inhalation Q8H PRN (Reason: shortness of breath or wheezing) 30 Days Qty: 8.5 2RF Discharge Orders: Discharge Order (Routine); Ordered 09/09/21 Ordered By: Fernando Abdi Diet: advance to usual diet Activity on Discharge: As tolerated Stand Alone Forms: Patient Portal Discharge page Activity Restrictions/Additional Instructions: Dressing: dry abdominal dressing to drainage site covered by mesh underwear daily and following restroom use Follow up in office with Dr. Trent in a week. ([phone]) Call Your Doctor Or Return to ED If: ? ? -Your temperature exceeds 101.5? F? ? ? -You experience excessive pain or swelling ? ? -You have an unexpected reaction to medication ? ? -You experience continued vomiting/nausea Care Plan Goals: Read below Health Concerns: Read below Plan of Treatment: Read below Assessment: you were admitted to the hospital for treatment of gluteal abscess that was drained by surgical team and treated with IV antibiotics with good response over the course of hospital stay. Continue Augmentin as prescribed To use dressing as recommended Discharge Date/Time: 09/09/21 11:59
[2021-09-09 11:14] VITALS: BP 178/87; PULSE 73; RESP 18; TEMP 36.2; O2SAT 97
--- NOTE | 2021-09-09 11:23 | MHC.CM.PN ---
HOME TODAY WITH QUENTIN SCHROEDER FOR RN SKILLS. SISTER TO TRANSPORT AFTER 1500 TODAY RN AWARE OF PLAN. [facility] START OF CARE SUNDAY AND PATIENT IS AWARE.
[2021-09-09 11:36] LABS: Glucose, Whole Blood 211 mg/dL (60-115)
--- NOTE | 2021-09-09 13:31 | W.MHC.F2F ---
Service Date Service Date: 09/09/21 Encounter Date of encounter: 09/09/21 Reasons for Services Signs and symptoms assessed: gluteal abscess Reason for half-way: wound care (dry abdominal dressing to drainage site covered by mesh underwear daily and following restroom use) Homebound: Leaving the home is medically contraindicated at this time without the asist of a device and/or another person due th the listed conditions above and below. Reason homebound: other Certification: Based on the above findings, I certify that this patient is confined to the home and needs intermittent half-way care, physical therapy and/or speech therapy, or continues to need occupational therapy. The patient is under my care, and I have initiated the establishment of the plan of care. The patient will be followed by a physician who will periodically review the plan of care.
== END 2021-09-09 11:59 | disposition home health service (06) | DRG 254 ==
LOC: HO.ED 18:43 → HO.EDOVER 19:15 → HO.S3 09-05 13:06
PROVIDERS: Internal Medicine; Nurse Practitioner Family; Surgery; Admitting Provider Hospitalist; Emergency Provider Emergency Medicine Emergency Medical Services; PCP Internal Medicine; Visit Provider Student in an Organized Health Care Education/Training Program
PROC: 0JB90ZZ Excision of Buttock Subcutaneous Tissue and Fascia, Open Approach (ICD-10-PCS; principal; 2021-09-06 11:40)
DX: K61.1 Rectal abscess (principal); E03.9 Hypothyroidism, unspecified; L02.31 Cutaneous abscess of buttock; E66.01 Morbid (severe) obesity due to excess calories; E11.65 Type 2 diabetes mellitus with hyperglycemia; B95.1 Streptococcus, group B, as the cause of diseases classified elsewhere; L03.317 Cellulitis of buttock; F17.210 Nicotine dependence, cigarettes, uncomplicated; Z98.51 Tubal ligation status; Z68.41 Body mass index [BMI] 40.0-44.9, adult; G43.909 Migraine, unspecified, not intractable, without status migrainosus; I10 Essential (primary) hypertension; E78.5 Hyperlipidemia, unspecified; Z20.822 Contact with and (suspected) exposure to COVID-19; Z71.6 Tobacco abuse counseling; Z91.14 Patient's other noncompliance with medication regimen; Z88.1 Allergy status to other antibiotic agents; Z88.2 Allergy status to sulfonamides; Z79.4 Long term (current) use of insulin; Z79.51 Long term (current) use of inhaled steroids; Z79.890 Hormone replacement therapy; Z79.899 Other long term (current) drug therapy
CPT/HCPCS: 36415; 72193; 80048; 80076; 80202; 82947; 83036; 83605; 85025; 85027; 87040; 87071; 87205; 87635; 88304; 96361; 96365; 96366; 96367; 96375; 96376; 99285; J0690; J1170; J1650; J2250; J2270; J2405; J2543; J2550; J3010; J3370; Q9967

== ENCOUNTER 2022-04-29 15:53 | Emergency (ER) | payer OTHER, SELFPAY ==
--- NOTE | ~2022-04-29 | XR_ITS ---
EXAMINATION: XR CHEST CLINICAL INFORMATION: Shortness of breath, cough COMPARISON: Chest CT on 07/23/2021 TECHNIQUE: 2 views of the chest were obtained. FINDINGS: No significant abnormality is noted involving the heart, lungs, mediastinum, bony thorax or soft tissues. XR/XR chest 2V IMPRESSION: Unremarkable examination.
--- NOTE | 2022-04-29 16:10 | ED.URI ---
HPI - URI/Sore Throat General Chief Complaint: General Medical Stated Complaint: congested cough Time Seen by Provider: 04/29/22 18:09 Related Data Home Medications Medication Instructions Recorded Confirmed doxepin 10 mg capsule 10 - 20 mg PO BEDTIME 01/04/21 09/03/21 bupropion HCl 100 mg tablet,12 hr 1 tab PO DAILY 09/07/21 09/07/21 sustained-release Previous Rx's Medication Instructions Recorded acetaminophen 500 mg tablet 500 mg PO Q6H PRN pain or fever 03/18/21 (Tylenol Extra Strength) #20 tabs naproxen 500 mg tablet 500 mg PO BID PRN pain 10 days #20 03/18/21 tabs fluticasone propionate 110 1 puff inhalation Q12H #12 grams 05/12/21 mcg/actuation HFA aerosol inhaler (Flovent HFA) albuterol sulfate 90 mcg/actuation 2 inh inhalation Q8H PRN shortness 07/20/21 aerosol inhaler of breath or wheezing 30 days #8.5 grams amoxicillin 875 mg-potassium 1 tab PO BID #14 tabs 09/08/21 clavulanate 125 mg tablet oxycodone 5 mg tablet 5 mg PO Q4H PRN Pain, Moderate 09/08/21 (Pain Scale 4-6 #20 tabs losartan 50 mg tablet 50 mg PO DAILY #90 tabs 10/13/21 insulin degludec 200 unit/mL (3 95 unit (0.475 mL) subcut BEDTIME 12/06/21 mL) subcutaneous pen (Tresiba 30 days #14.25 mL FlexTouch U-200 insulin) nirmatrelvir 300 mg (150 mg See Rx Instructions PO .COMPLEX 12/21/21 x2)-ritonavir 100 mg tablet,dose #30 tabs pack(EUA) (Paxlovid) benzonatate 100 mg capsule 100 mg PO TID PRN cough #30 caps 01/03/22 flash glucose scanning reader #1 ea 01/05/22 (FreeStyle Abdon 2 [place]) flash glucose sensor (FreeStyle #1 ea 01/11/22 Abdon 2 Sensor kit) ergocalciferol (vitamin D2) 1,250 1,250 mcg PO QWEEK 90 days #13 caps 01/15/22 mcg (50,000 unit) capsule fluticasone propionate 50 1 spray intranasal BID #16 grams 01/22/22 mcg/actuation nasal spray,suspension diabetic shoes #1 ea 03/07/22 cyanocobalamin (vitamin B-12) 1,000 mcg PO DAILY 90 days #90 tabs 03/08/22 1,000 mcg tablet fluticasone propionate 100 1 inh PO BID #60 ea 03/08/22 mcg/actuation blister powder for inhalation (Flovent Diskus) gabapentin 800 mg tablet 800 mg PO TID #84 tabs 03/08/22 omeprazole 20 mg capsule,delayed 20 mg PO DAILY 90 days #90 caps 03/08/22 release levothyroxine 200 mcg tablet 200 mcg PO DAILY #90 tabs 03/09/22 ipratropium 0.5 mg-albuterol 3 mg 3 ml inhalation Q6-8H PRN wheezing 03/28/22 (2.5 mg base)/3 mL nebulization #90 mL soln blood sugar diagnostic (FreeStyle 1 strip miscellaneous QID diabetes 03/31/22 Lite Strips) 30 days #100 strips atorvastatin 40 mg tablet 40 mg PO DAILY 90 days #90 tabs 04/10/22 buspirone 7.5 mg tablet 7.5 mg PO BID 30 days #60 tabs 04/10/22 escitalopram oxalate 20 mg tablet 20 mg PO DAILY 90 days #90 tabs 04/10/22 insulin lispro 100 unit/mL 20 unit (0.2 mL) subcut TID #15 mL 04/11/22 subcutaneous pen (Humalog KwikPen (U-100) Insulin) albuterol sulfate 90 mcg/actuation 2 puff inhalation Q4-6H PRN 04/29/22 aerosol inhaler (Proventil HFA) wheezing #8.5 grams inhalational spacing device #1 ea 04/29/22 (Aerochamber Plus Z Stat spacer) prednisone 20 mg tablet 40 mg PO DAILY #10 tabs 04/29/22 Allergies Allergy/AdvReac Type Severity Reaction Status Date / Time doxycycline [DOXYCYCLINE] Allergy Severe THROAT Verified 01/03/22 15:45 SWELLING clindamycin [CLINDAMYCIN] Allergy Intermediate CHEST PAIN Verified 01/03/22 15:45 Sulfa (Sulfonamide Allergy Unknown makes her Verified 01/03/22 15:45 Antibiotics) sick, vomit trimethoprim [From BACTRIM] Allergy Unknown NAUSEA & Verified 01/03/22 15:45 VOMITING sulfamethoxazole AdvReac Mild NAUSEA & Verified 01/03/22 15:45 [From BACTRIM] VOMITING lisinopril Allergy Unknown headaches Uncoded 01/03/22 15:45 PMFSH Past Medical History Medical History (Updated 04/29/22 @ 21:26 by Jonathon Summers MD) Anxiety B12 deficiency Cellulitis of buttock Depression Diabetes Hyperlipidemia Migraines Morbid obesity Sciatic leg pain Uncontrolled diabetes mellitus Surgical History (Updated 09/10/21 @ 00:03 by Luly Boswell) H/O elbow surgery H/O thyroidectomy Hx of tubal ligation Family History Family History Father HTN (hypertension) CVD (cardiovascular disease) Diabetes mellitus Mental health disorder Mother Diabetes mellitus Uterine cancer COPD (chronic obstructive pulmonary disease) Mental health disorder Maternal Grandmother Breast cancer Paternal Aunt Breast cancer Brother No problems noted. Sister Substance use disorder Mental health disorder Sister No problems noted. Sister No problems noted. Daughter No problems noted. Son No problems noted. Son No problems noted. Son No problems noted. Son No problems noted. Son No problems noted. Son No problems noted. Social History Social History Household Members: Family Housing: Apartment Do you presently have visiting nurse or other home services: No Alcohol intake: never Patient Tobacco Use Status: Current everyday Tobacco user Tobacco use type: Cigarette Cigarette Packs Per Day: 1 Cigarettes Per Day: 3 Years Smoked: 20 Smoked in Last 30 Days: Yes e-Cigarette/Vaping Use: Currently Using Second Hand Smoke Exposure: No Use of substances other than those prescribed or required for medical reasons: No Advance Directives: No Advance Directives Information Provided: No service: No Current occupational status: employed Current occupation: [employer] Physical Exam Vital Signs: Vital Signs: Last Vital Signs Temp 98.2 F 04/29/22 21:44 Pulse 84 04/29/22 21:44 Resp 16 04/29/22 21:44 BP 145/82 H 04/29/22 21:44 Pulse Ox 97 04/29/22 21:44 O2 Del Method 04/29/22 21:44 BMI result Body Mass Index 40.1 Course Course Course Narrative: RME: Patient is a 51 y.o. female with a pmhx of diabetes, HLD, migrainesm anxiety, depression, who presents to the ED for evaluation of cough and shortness of breath. Reports cough x 6 months, but has worsened over the past 2-3 days ago. Reports recent sick contacts. Has not tested for COVID or influenza. Trialed nebulized which she has a home given hx of bronchitis, and has had no relief from this. PE: LS diminished bilaterally, no increased WOB, tachycardic without fever, hypoxia, or tachypnea (not meeting sepsis criteria at this time. heart sounds normal S1/S2. ABD exam is benign. No apparent distress Plan: COVID-19 testing, influenza testing, CXR Medications Administered Discontinued Medications Generic Name Dose Route Start Last Admin Trade Name Delfinoq PRN Reason Stop Dose Admin Albuterol/Ipratropium 3 ml 04/29/22 19:28 04/29/22 20:26 Albuterol/Iprat 2.5/0.5mg 3 Ml Ampul.Neb INHALE 04/29/22 19:29 3 ml ONCE ONE Administration Prednisone 40 mg 04/29/22 19:28 04/29/22 19:40 Prednisone 20 Mg Tablet PO 04/29/22 19:29 40 mg ONCE ONE Administration MDM - URI/Sore Throat Lab Data Result diagrams: 04/29/22 17:29 04/29/22 17:29 Labs: Lab Results 04/29/22 04/29/22 04/29/22 Range/Units 17:29 17:29 17:29 WBC 10.0 (4.8-10.8) X10*3/uL RBC 5.45 D (4.20-5.50) X10*6/uL Hgb 16.1 H D (12.0-16.0) g/dl Hct 45.9 (37.0-47.0) % MCV 84.2 (80.0-98.0) fL MCH 29.5 (27.0-33.0) pg MCHC 35.1 H (31.0-35.0) g/dl RDW 12.8 (11.0-16.0) % Plt Count 251 D (160-400) X10*3/uL MPV 10.7 (9.4-12.3) fL Immature Gran % (Auto) 0.1 (0.0-0.4) % Neut % (Auto) 57.4 (45-73) % Lymph % (Auto) 31.8 (20-40) % [place] % (Auto) 6.8 (2-11) % Eos % (Auto) 2.9 (0-4) % Baso % (Auto) 1.0 (0-2) % Lymph # (Auto) 3.2 (1.2-4.9) X10*3/uL [place] # (Auto) 0.7 (0.1-1.2) X10*3/uL Eos # (Auto) 0.3 (0.0-0.4) X10*3/uL Baso # (Auto) 0.1 (0.0-0.2) X10*3/uL Abs Immat Gran (auto) 0.01 (0.00-0.03) X10*3/uL Absolute Neuts (auto) 5.8 (2.0-8.3) x10*3/uL Absolute Nucleated RBC 0.000 (0.0-0.012) X10*3/uL Nucleated RBC % (auto) 0.0 (0.0-0.2) /100WBC Sodium (135-145) mmol/L Potassium (3.3-5.1) mmol/L Chloride (96-108) mmol/L Carbon Dioxide (22-29) mmol/L Anion Gap (12-20) BUN (9-16) mg/dL Creatinine (0.5-1.4) mg/dL Estim Creat Clear Calc Estimated GFR Random Glucose (60-115) mg/dL Calcium (8.4-10.2) mg/dL Total Bilirubin (0.0-1.0) mg/dL AST (5-31) U/L ALT (0-31) U/L Alkaline Phosphatase (39-117) U/L Total Protein (6.5-8.0) g/dL Albumin (3.5-5.0) g/dL COVID-19 (HILDA) Negative (Negative) COVID-19 Clin Com See Note Influenza Type A (ZEUS) Negative (Negative) Influenza Type B (ZEUS) Negative (Negative) Influenza A & B Note See Note 04/29/22 Range/Units 17:29 WBC (4.8-10.8) X10*3/uL RBC (4.20-5.50) X10*6/uL Hgb (12.0-16.0) g/dl Hct (37.0-47.0) % MCV (80.0-98.0) fL MCH (27.0-33.0) pg MCHC (31.0-35.0) g/dl RDW (11.0-16.0) % Plt Count (160-400) X10*3/uL MPV (9.4-12.3) fL Immature Gran % (Auto) (0.0-0.4) % Neut % (Auto) (45-73) % Lymph % (Auto) (20-40) % [place] % (Auto) (2-11) % Eos % (Auto) (0-4) % Baso % (Auto) (0-2) % Lymph # (Auto) (1.2-4.9) X10*3/uL [place] # (Auto) (0.1-1.2) X10*3/uL Eos # (Auto) (0.0-0.4) X10*3/uL Baso # (Auto) (0.0-0.2) X10*3/uL Abs Immat Gran (auto) (0.00-0.03) X10*3/uL Absolute Neuts (auto) (2.0-8.3) x10*3/uL Absolute Nucleated RBC (0.0-0.012) X10*3/uL Nucleated RBC % (auto) (0.0-0.2) /100WBC Sodium 134 L (135-145) mmol/L Potassium 4.7 (3.3-5.1) mmol/L Chloride 98 (96-108) mmol/L Carbon Dioxide 28 (22-29) mmol/L Anion Gap 13 (12-20) BUN 12 (9-16) mg/dL Creatinine 0.92 (0.5-1.4) mg/dL Estim Creat Clear Calc 88.0 Estimated GFR > 60 Random Glucose 594 H* (60-115) mg/dL Calcium 9.2 D (8.4-10.2) mg/dL Total Bilirubin 0.4 (0.0-1.0) mg/dL AST 27 (5-31) U/L ALT 13 (0-31) U/L Alkaline Phosphatase 100 (39-117) U/L Total Protein 7.2 (6.5-8.0) g/dL Albumin 3.6 (3.5-5.0) g/dL COVID-19 (HILDA) (Negative) COVID-19 Clin Com Influenza Type A (ZEUS) (Negative) Influenza Type B (ZEUS) (Negative) Influenza A & B Note Discharge Plan Discharge Clinical Impression: Tracheobronchitis, Acute bronchitis, Smoker Patient Disposition: Home, Self-Care Instructions: How to Use a Metered-Dose Inhaler (ED), Acute Bronchitis (ED) Prescriptions: New prednisone 20 mg tablet 40 mg PO DAILY Qty: 10 0RF albuterol sulfate [Proventil HFA] 90 mcg/actuation HFA aerosol inhaler 2 puff inhalation Q4-6H PRN (Reason: wheezing) Qty: 8.5 0RF (DME) Aerochamber Plus Z Stat Spacer See Rx Instructions .Route Qty: 1 0RF Rx Instructions: As directed No Action doxepin 10 mg capsule 10 - 20 mg PO BEDTIME Flovent HFA 110 mcg/actuation HFA aerosol inhaler 1 puff inhalation Q12H Qty: 12 4RF Rx Instructions: administer with spacer losartan 50 mg tablet 50 mg PO DAILY Qty: 90 0RF Tresiba FlexTouch U-200 200 unit/mL (3 mL) insulin pen 95 unit subcut BEDTIME 30 Days Qty: 14.25 1RF Paxlovid (EUA) 300 mg (150 mg x 2)-100 mg tablet See Rx Instructions PO .COMPLEX Qty: 30 0RF Rx Instructions: take TWO 150 mg tablets of nirmatrelvir with ONE 100 mg tablet of ritonavir twice daily for 5 days PO (DME) FreeStyle Abdon 2 [place] Misc See Rx Instructions .Route Qty: 1 4RF Rx Instructions: tid testing (DME) FreeStyle Abdon 2 Sensor Kit See Rx Instructions .Route Qty: 1 4RF Rx Instructions: tid testing ergocalciferol (vitamin D2) 1,250 mcg (50,000 unit) capsule 1,250 mcg PO QWEEK 90 Days Qty: 13 3RF fluticasone propionate 50 mcg/actuation spray,suspension 1 spray intranasal BID Qty: 16 3RF Rx Instructions: administer into each nostril (DME) diabetic shoes See Rx Instructions .Route .MEDSUPPLY Qty: 1 0RF Rx Instructions: USE daily omeprazole 20 mg capsule,delayed release(DR/EC) 20 mg PO DAILY 90 Days Qty: 90 0RF Flovent Diskus 100 mcg/actuation blister with device 1 inh PO BID Qty: 60 2RF cyanocobalamin (vitamin B-12) 1,000 mcg tablet 1,000 mcg PO DAILY 90 Days Qty: 90 0RF gabapentin 800 mg tablet 800 mg PO TID Qty: 84 3RF levothyroxine 200 mcg tablet 200 mcg PO DAILY Qty: 90 3RF ipratropium-albuterol 0.5 mg-3 mg(2.5 mg base)/3 mL solution for nebulization 3 ml inhalation Q6-8H PRN (Reason: wheezing) Qty: 90 0RF FreeStyle Lite Strips Strip 1 strip miscellaneous QID 30 Days Qty: 100 0RF buspirone 7.5 mg tablet 7.5 mg PO BID 30 Days Qty: 60 3RF escitalopram oxalate 20 mg tablet 20 mg PO DAILY 90 Days Qty: 90 0RF atorvastatin 40 mg tablet 40 mg PO DAILY 90 Days Qty: 90 0RF insulin lispro [Humalog KwikPen Insulin] 100 unit/mL insulin pen 20 unit subcut TID Qty: 15 0RF acetaminophen [Tylenol Extra Strength] 500 mg tablet 500 mg PO Q6H PRN (Reason: pain or fever) Qty: 20 0RF naproxen 500 mg tablet 500 mg PO BID PRN (Reason: pain) 10 Days Qty: 20 0RF bupropion HCl 100 mg tablet sustained-release 12 hr 1 tab PO DAILY oxycodone 5 mg Tablet 5 mg PO Q4H PRN (Reason: Pain, Moderate (Pain Scale 4-6) Qty: 20 0RF amoxicillin-pot clavulanate 875-125 mg tablet 1 tab PO BID Qty: 14 0RF albuterol sulfate 90 mcg/actuation HFA aerosol inhaler 2 inh inhalation Q8H PRN (Reason: shortness of breath or wheezing) 30 Days Qty: 8.5 2RF benzonatate 100 mg capsule 100 mg PO TID PRN (Reason: cough) Qty: 30 0RF Referrals: Adarsh Johnson, [employer]CH[employer]ICIAN[employer] [Primary Care Provider] - 2 days Interventions: ED Discharge Assessment Last Done: 04/29/22 21:36 Discharge Date/Time: 04/29/22 21:41
[2022-04-29 16:15] VITALS: BP 150/85; PULSE 110; RESP 20; TEMP 37.1; O2SAT 95; BMI 40.1
[2022-04-29 17:34] LABS: MANUAL DIFF FLAG NO
[2022-04-29 17:38] LABS: Basophils Absolute Auto 0.1 X10*3/uL (0.0-0.2); Eosinophils Absolute Auto 0.3 X10*3/uL (0.0-0.4); Eosinophils Percent Auto 2.9 % (0-4); Hematocrit 45.9 % (37.0-47.0); Hemoglobin 16.1 g/dl (12.0-16.0); Imm Gran Abs Auto 0.01 X10*3/uL (0.00-0.03); Imm Gran Pct Auto 0.1 % (0.0-0.4); Lymphocytes Absolute Auto 3.2 X10*3/uL (1.2-4.9); Lymphocytes Percent Auto 31.8 % (20-40); Mean Corpuscular HGB Conc 35.1 g/dl (31.0-35.0); Mean Corpuscular Hemoglobin 29.5 pg (27.0-33.0); Mean Corpuscular Volume 84.2 fL (80.0-98.0); Mean Platelet Volume 10.7 fL (9.4-12.3); Monocytes Absolute Auto 0.7 X10*3/uL (0.1-1.2); Monocytes Percent Auto 6.8 % (2-11); Neutrophils Absolute Auto 5.8 x10*3/uL (2.0-8.3); Neutrophils Percent Auto 57.4 % (45-73); Platelet Count 251 X10*3/uL (160-400); Red Blood Count 5.45 X10*6/uL (4.20-5.50); Red Cell Distribution Width 12.8 % (11.0-16.0)
[2022-04-29 17:51] LABS: COVID-19 Test Negative (Negative)
[2022-04-29 17:52] LABS: IDNOW Serial# 55D5AD1C; Influenza A Negative (Negative); Influenza B2 Negative (Negative)
[2022-04-29 17:57] LABS: Alanine Aminotransferase 13 U/L (0-31); Albumin Level 3.6 g/dL (3.5-5.0); Alkaline Phosphatase 100 U/L (39-117); Anion Gap 13 (12-20); Aspartate Amino Transferase 27 U/L (5-31); Bilirubin Total 0.4 mg/dL (0.0-1.0); Blood Urea Nitrogen 12 mg/dL (9-16); Calcium 9.2 mg/dL (8.4-10.2); Carbon Dioxide 28 mmol/L (22-29); Chloride 98 mmol/L (96-108); Estimated Glomerular Filt Rate > 60; Glucose Random 594 mg/dL (60-115); Potassium 4.7 mmol/L (3.3-5.1); Sodium 134 mmol/L (135-145); Total Protein 7.2 g/dL (6.5-8.0)
[2022-04-29 18:32] VITALS: BP 146/79; PULSE 85; RESP 18; TEMP 37.1; O2SAT 97
--- NOTE | 2022-04-29 18:32 | ED.URI ---
HPI - URI/Sore Throat General Chief Complaint: General Medical Stated Complaint: congested cough Time Seen by Provider: 04/29/22 18:09 Source: patient Mode of arrival: ambulatory Limitations: no limitations History of Present Illness HPI Narrative: 51-year-old female with past medical history diabetes and hypertension who presents the emergency department today with a cough. Has been going on for several days, progressively worsening. The patient states that she has been using Robitussin AC at home with some relief. The patient is a smoker, although states she has not been able to smoke recently because of her cough. There has been no fevers, shaking chills. The patient has been in contact with her ex- who was diagnosed with pneumonia approximately a week ago, but no COVID exposures. MD elicited complaint: cough Onset (ago): day(s) Consistency: constant and progressively worsening Severity: moderate Related Data Home Medications Medication Instructions Recorded Confirmed doxepin 10 mg capsule 10 - 20 mg PO BEDTIME 01/04/21 09/03/21 bupropion HCl 100 mg tablet,12 hr 1 tab PO DAILY 09/07/21 09/07/21 sustained-release Previous Rx's Medication Instructions Recorded acetaminophen 500 mg tablet 500 mg PO Q6H PRN pain or fever 03/18/21 (Tylenol Extra Strength) #20 tabs naproxen 500 mg tablet 500 mg PO BID PRN pain 10 days #20 03/18/21 tabs fluticasone propionate 110 1 puff inhalation Q12H #12 grams 05/12/21 mcg/actuation HFA aerosol inhaler (Flovent HFA) albuterol sulfate 90 mcg/actuation 2 inh inhalation Q8H PRN shortness 07/20/21 aerosol inhaler of breath or wheezing 30 days #8.5 grams amoxicillin 875 mg-potassium 1 tab PO BID #14 tabs 09/08/21 clavulanate 125 mg tablet oxycodone 5 mg tablet 5 mg PO Q4H PRN Pain, Moderate 09/08/21 (Pain Scale 4-6 #20 tabs losartan 50 mg tablet 50 mg PO DAILY #90 tabs 10/13/21 insulin degludec 200 unit/mL (3 95 unit (0.475 mL) subcut BEDTIME 12/06/21 mL) subcutaneous pen (Tresiba 30 days #14.25 mL FlexTouch U-200 insulin) nirmatrelvir 300 mg (150 mg See Rx Instructions PO .COMPLEX 12/21/21 x2)-ritonavir 100 mg tablet,dose #30 tabs pack(EUA) (Paxlovid) benzonatate 100 mg capsule 100 mg PO TID PRN cough #30 caps 01/03/22 flash glucose scanning reader #1 ea 01/05/22 (FreeStyle Abdon 2 [place]nona) flash glucose sensor (FreeStyle #1 ea 01/11/22 Abdon 2 Sensor kit) ergocalciferol (vitamin D2) 1,250 1,250 mcg PO QWEEK 90 days #13 caps 01/15/22 mcg (50,000 unit) capsule fluticasone propionate 50 1 spray intranasal BID #16 grams 01/22/22 mcg/actuation nasal spray,suspension diabetic shoes #1 ea 03/07/22 cyanocobalamin (vitamin B-12) 1,000 mcg PO DAILY 90 days #90 tabs 03/08/22 1,000 mcg tablet fluticasone propionate 100 1 inh PO BID #60 ea 03/08/22 mcg/actuation blister powder for inhalation (Flovent Diskus) gabapentin 800 mg tablet 800 mg PO TID #84 tabs 03/08/22 omeprazole 20 mg capsule,delayed 20 mg PO DAILY 90 days #90 caps 03/08/22 release levothyroxine 200 mcg tablet 200 mcg PO DAILY #90 tabs 03/09/22 ipratropium 0.5 mg-albuterol 3 mg 3 ml inhalation Q6-8H PRN wheezing 03/28/22 (2.5 mg base)/3 mL nebulization #90 mL soln blood sugar diagnostic (FreeStyle 1 strip miscellaneous QID diabetes 03/31/22 Lite Strips) 30 days #100 strips atorvastatin 40 mg tablet 40 mg PO DAILY 90 days #90 tabs 04/10/22 buspirone 7.5 mg tablet 7.5 mg PO BID 30 days #60 tabs 04/10/22 escitalopram oxalate 20 mg tablet 20 mg PO DAILY 90 days #90 tabs 04/10/22 insulin lispro 100 unit/mL 20 unit (0.2 mL) subcut TID #15 mL 04/11/22 subcutaneous pen (Humalog KwikPen (U-100) Insulin) albuterol sulfate 90 mcg/actuation 2 puff inhalation Q4-6H PRN 04/29/22 aerosol inhaler (Proventil HFA) wheezing #8.5 grams inhalational spacing device #1 ea 04/29/22 (Aerochamber Plus Z Stat spacer) prednisone 20 mg tablet 40 mg PO DAILY #10 tabs 04/29/22 Allergies Allergy/AdvReac Type Severity Reaction Status Date / Time doxycycline [DOXYCYCLINE] Allergy Severe THROAT Verified 01/03/22 15:45 SWELLING clindamycin [CLINDAMYCIN] Allergy Intermediate CHEST PAIN Verified 01/03/22 15:45 Sulfa (Sulfonamide Allergy Unknown makes her Verified 01/03/22 15:45 Antibiotics) sick, vomit trimethoprim [From BACTRIM] Allergy Unknown NAUSEA & Verified 01/03/22 15:45 VOMITING sulfamethoxazole AdvReac Mild NAUSEA & Verified 01/03/22 15:45 [From BACTRIM] VOMITING lisinopril Allergy Unknown headaches Uncoded 01/03/22 15:45 Review of Systems Constitutional: Constitutional: Denies chills, Denies fever(s) and Denies weakness Eyes: Eyes: Denies diplopia and Denies eye discharge ENT: Denies vertigo, Reports nasal congestion and Denies sore throat Cardiovascular: Cardiovascular: Denies palpitations and Denies dyspnea Respiratory: Respiratory: Reports no additional respiratory complaints, Reports cough and Denies dyspnea Gastrointestinal: Gastrointestinal: Reports no additional gastrointestinal complaints, Denies nausea and Denies vomiting Musculoskeletal: Musculoskeletal: Reports no additional musculoskeletal complaints, Denies numbness and Denies tingling Integumentary/Breasts: Skin/Breast: Denies jaundice Neurologic: Denies Abnormal speech present, Denies vertigo, Denies numbness, Denies Sensory deficit (Neuro), Denies tingling and Denies weakness Endocrine: Endocrine: Denies palpitations PMFSH Past Medical History Attestation statement: The following information was validated with the patient. Source: nursing notes reviewed Medical History (Updated 04/29/22 @ 21:26 by Jonathon Summers MD) Anxiety B12 deficiency Cellulitis of buttock Depression Diabetes Hyperlipidemia Migraines Morbid obesity Sciatic leg pain Uncontrolled diabetes mellitus Surgical History (Updated 09/10/21 @ 00:03 by Luly Boswell) H/O elbow surgery H/O thyroidectomy Hx of tubal ligation Family History Family History Father HTN (hypertension) CVD (cardiovascular disease) Diabetes mellitus Mental health disorder Mother Diabetes mellitus Uterine cancer COPD (chronic obstructive pulmonary disease) Mental health disorder Maternal Grandmother Breast cancer Paternal Aunt Breast cancer Brother No problems noted. Sister Substance use disorder Mental health disorder Sister No problems noted. Sister No problems noted. Daughter No problems noted. Son No problems noted. Son No problems noted. Son No problems noted. Son No problems noted. Son No problems noted. Son No problems noted. Social History Social History Household Members: Family Housing: Apartment Do you presently have visiting nurse or other home services: No Alcohol intake: never Patient Tobacco Use Status: Current everyday Tobacco user Tobacco use type: Cigarette Cigarette Packs Per Day: 1 Cigarettes Per Day: 3 Years Smoked: 20 e-Cigarette/Vaping Use: Currently Using Second Hand Smoke Exposure: No Advance Directives: No Advance Directives Information Provided: No service: No Current occupational status: employed Current occupation: [employer] Physical Exam Vital Signs: Vital Signs: Last Vital Signs Temp 98.3 F 04/29/22 19:16 Pulse 84 04/29/22 20:30 Resp 16 04/29/22 20:30 BP 135/75 04/29/22 19:16 Pulse Ox 95 04/29/22 19:16 O2 Del Method 04/29/22 19:16 BMI result Body Mass Index 40.1 Hypertension is noted, vital signs otherwise unremarkable Const: General: cooperative, no acute distress, alert and awake; No diaphoretic Orientation/consciousness: patient oriented x3 Limitations: no limitations HEENT: Head: Yes normal to inspection, Yes normocephalic and Yes atraumatic Ears: hearing grossly normal bilaterally General nose exam: Normal external nose present Face and sinus: Yes normal facial exam Mouth: Normal oral and palatal mucosa present Eyes: General: appearance normal, both eyes and all related structures Conjunctivae: conjunctivae normal Sclerae: sclerae normal Pupils: Equal, round and reactive pupils present EOM: EOMs intact bilaterally Neck: Neck: Yes normal visual inspection and Yes full ROM Resp: Effort & Inspection: normal respiratory effort, normal respiratory pattern and no cough Cardio: Rate: regular rate Rhythm: regular rhythm GI: Inspection: Yes normal to inspection, No Abdominal wall edema and No distended Palpation (GI): not soft and nontender Back/Spine/Pelvis: Cervical Spine: normal cervical lordosis and cervical ROM normal Skin: General skin exam: no rashes or lesions noted, no jaundice and no pallor Neuro: General: patient oriented x3 and CN's II-XI intact bilaterally Cranial nerves: Yes Equal, round and reactive pupils present Cognition (Neuro): normal cognition Speech: No Abnormal speech present Motor exam (neuro): 5/5 motor strength present throughout Sensory Exam: No Sensory deficit (Neuro) Deep tendon reflexes (DTR's): Rt Biceps (C5, C6): 2+, Left biceps reflex intensity grade: 2+, Right patellar reflex intensity grade: 2+ and Left patellar reflex intensity grade: 2+ Medications Administered Discontinued Medications Generic Name Dose Route Start Last Admin Trade Name Freq PRN Reason Stop Dose Admin Albuterol/Ipratropium 3 ml 04/29/22 19:28 04/29/22 20:26 Albuterol/Iprat 2.5/0.5mg 3 Ml Ampul.Neb INHALE 04/29/22 19:29 3 ml ONCE ONE Administration Prednisone 40 mg 04/29/22 19:28 04/29/22 19:40 Prednisone 20 Mg Tablet PO 04/29/22 19:29 40 mg ONCE ONE Administration MDM - URI/Sore Throat MDM Narrative Medical decision making narrative: 51-year-old female with a past medical history of diabetes and hypertension presents to the emergency department tonight with a cough and upper respiratory symptoms. Laboratory studies were performed and are noted below. Patient had a COVID test which is negative as well as a chest x-ray which was also unremarkable. The patient will be discharged home to follow-up with her primary care doctor, she is encouraged to take Tylenol and/or Motrin for fever and aches. Differential Diagnosis Differential diagnosis: Likely upper respiratory infection, viral infection and bronchitis Medical Records Attestation: I reviewed the patient's medical records. Lab Data Attestation: I reviewed the patient's lab results. Lab results narrative: H&H elevated, most likely secondary to smoking COVID negative Result diagrams: 04/29/22 17:04/29/22 17:29 Labs: Lab Results 04/29/22 04/29/22 04/29/22 Range/Units 17:29 17: 17: WBC 10.0 (4.8-10.8) X10*3/uL RBC 5.45 D (4.20-5.50) X10*6/uL Hgb 16.1 H D (12.0-16.0) g/dl Hct 45.9 (37.0-47.0) % MCV 84.2 (80.0-98.0) fL MCH 29.5 (27.0-33.0) pg MCHC 35.1 H (31.0-35.0) g/dl RDW 12.8 (11.0-16.0) % Plt Count 251 D (160-400) X10*3/uL MPV 10.7 (9.4-12.3) fL Immature Gran % (Auto) 0.1 (0.0-0.4) % Neut % (Auto) 57.4 (45-73) % Lymph % (Auto) 31.8 (20-40) % [place] % (Auto) 6.8 (2-11) % Eos % (Auto) 2.9 (0-4) % Baso % (Auto) 1.0 (0-2) % Lymph # (Auto) 3.2 (1.2-4.9) X10*3/uL [place] # (Auto) 0.7 (0.1-1.2) X10*3/uL Eos # (Auto) 0.3 (0.0-0.4) X10*3/uL Baso # (Auto) 0.1 (0.0-0.2) X10*3/uL Abs Immat Gran (auto) 0.01 (0.00-0.03) X10*3/uL Absolute Neuts (auto) 5.8 (2.0-8.3) x10*3/uL Absolute Nucleated RBC 0.000 (0.0-0.012) X10*3/uL Nucleated RBC % (auto) 0.0 (0.0-0.2) /100WBC Sodium (135-145) mmol/L Potassium (3.3-5.1) mmol/L Chloride (96-108) mmol/L Carbon Dioxide (22-29) mmol/L Anion Gap (12-20) BUN (9-16) mg/dL Creatinine (0.5-1.4) mg/dL Estim Creat Clear Calc Estimated GFR Random Glucose (60-115) mg/dL Calcium (8.4-10.2) mg/dL Total Bilirubin (0.0-1.0) mg/dL AST (5-31) U/L ALT (0-31) U/L Alkaline Phosphatase (39-117) U/L Total Protein (6.5-8.0) g/dL Albumin (3.5-5.0) g/dL COVID-19 (HILDA) Negative (Negative) COVID-19 Clin Com See Note Influenza Type A (ZEUS) Negative (Negative) Influenza Type B (ZEUS) Negative (Negative) Influenza A & B Note See Note 04/29/22 Range/Units 17:29 WBC (4.8-10.8) X10*3/uL RBC (4.20-5.50) X10*6/uL Hgb (12.0-16.0) g/dl Hct (37.0-47.0) % MCV (80.0-98.0) fL MCH (27.0-33.0) pg MCHC (31.0-35.0) g/dl RDW (11.0-16.0) % Plt Count (160-400) X10*3/uL MPV (9.4-12.3) fL Immature Gran % (Auto) (0.0-0.4) % Neut % (Auto) (45-73) % Lymph % (Auto) (20-40) % [place] % (Auto) (2-11) % Eos % (Auto) (0-4) % Baso % (Auto) (0-2) % Lymph # (Auto) (1.2-4.9) X10*3/uL [place] # (Auto) (0.1-1.2) X10*3/uL Eos # (Auto) (0.0-0.4) X10*3/uL Baso # (Auto) (0.0-0.2) X10*3/uL Abs Immat Gran (auto) (0.00-0.03) X10*3/uL Absolute Neuts (auto) (2.0-8.3) x10*3/uL Absolute Nucleated RBC (0.0-0.012) X10*3/uL Nucleated RBC % (auto) (0.0-0.2) /100WBC Sodium 134 L (135-145) mmol/L Potassium 4.7 (3.3-5.1) mmol/L Chloride 98 (96-108) mmol/L Carbon Dioxide 28 (22-29) mmol/L Anion Gap 13 (12-20) BUN 12 (9-16) mg/dL Creatinine 0.92 (0.5-1.4) mg/dL Estim Creat Clear Calc 88.0 Estimated GFR > 60 Random Glucose 594 H* (60-115) mg/dL Calcium 9.2 D (8.4-10.2) mg/dL Total Bilirubin 0.4 (0.0-1.0) mg/dL AST 27 (5-31) U/L ALT 13 (0-31) U/L Alkaline Phosphatase 100 (39-117) U/L Total Protein 7.2 (6.5-8.0) g/dL Albumin 3.6 (3.5-5.0) g/dL COVID-19 (HILDA) (Negative) COVID-19 Clin Com Influenza Type A (ZEUS) (Negative) Influenza Type B (ZEUS) (Negative) Influenza A & B Note Imaging Data Chest x-ray: Radiologist's impression: FINDINGS: No significant abnormality is noted involving the heart, lungs, mediastinum, bony thorax or soft tissues Discharge Plan Discharge Clinical Impression: Tracheobronchitis, Acute bronchitis, Smoker Patient Disposition: Home, Self-Care Prescriptions: New prednisone 20 mg tablet 40 mg PO DAILY Qty: 10 0RF albuterol sulfate [Proventil HFA] 90 mcg/actuation HFA aerosol inhaler 2 puff inhalation Q4-6H PRN (Reason: wheezing) Qty: 8.5 0RF (DME) Aerochamber Plus Z Stat Spacer See Rx Instructions .Route Qty: 1 0RF Rx Instructions: As directed No Action doxepin 10 mg capsule 10 - 20 mg PO BEDTIME Flovent HFA 110 mcg/actuation HFA aerosol inhaler 1 puff inhalation Q12H Qty: 12 4RF Rx Instructions: administer with spacer losartan 50 mg tablet 50 mg PO DAILY Qty: 90 0RF Tresiba FlexTouch U-200 200 unit/mL (3 mL) insulin pen 95 unit subcut BEDTIME 30 Days Qty: 14.25 1RF Paxlovid (EUA) 300 mg (150 mg x 2)-100 mg tablet See Rx Instructions PO .COMPLEX Qty: 30 0RF Rx Instructions: take TWO 150 mg tablets of nirmatrelvir with ONE 100 mg tablet of ritonavir twice daily for 5 days PO (DME) FreeStyle Abdon 2 [place] Misc See Rx Instructions .Route Qty: 1 4RF Rx Instructions: tid testing (DME) FreeStyle Abdon 2 Sensor Kit See Rx Instructions .Route Qty: 1 4RF Rx Instructions: tid testing ergocalciferol (vitamin D2) 1,250 mcg (50,000 unit) capsule 1,250 mcg PO QWEEK 90 Days Qty: 13 3RF fluticasone propionate 50 mcg/actuation spray,suspension 1 spray intranasal BID Qty: 16 3RF Rx Instructions: administer into each nostril (DME) diabetic shoes See Rx Instructions .Route .MEDSUPPLY Qty: 1 0RF Rx Instructions: USE daily omeprazole 20 mg capsule,delayed release(DR/EC) 20 mg PO DAILY 90 Days Qty: 90 0RF Flovent Diskus 100 mcg/actuation blister with device 1 inh PO BID Qty: 60 2RF cyanocobalamin (vitamin B-12) 1,000 mcg tablet 1,000 mcg PO DAILY 90 Days Qty: 90 0RF gabapentin 800 mg tablet 800 mg PO TID Qty: 84 3RF levothyroxine 200 mcg tablet 200 mcg PO DAILY Qty: 90 3RF ipratropium-albuterol 0.5 mg-3 mg(2.5 mg base)/3 mL solution for nebulization 3 ml inhalation Q6-8H PRN (Reason: wheezing) Qty: 90 0RF FreeStyle Lite Strips Strip 1 strip miscellaneous QID 30 Days Qty: 100 0RF buspirone 7.5 mg tablet 7.5 mg PO BID 30 Days Qty: 60 3RF escitalopram oxalate 20 mg tablet 20 mg PO DAILY 90 Days Qty: 90 0RF atorvastatin 40 mg tablet 40 mg PO DAILY 90 Days Qty: 90 0RF insulin lispro [Humalog KwikPen Insulin] 100 unit/mL insulin pen 20 unit subcut TID Qty: 15 0RF acetaminophen [Tylenol Extra Strength] 500 mg tablet 500 mg PO Q6H PRN (Reason: pain or fever) Qty: 20 0RF naproxen 500 mg tablet 500 mg PO BID PRN (Reason: pain) 10 Days Qty: 20 0RF bupropion HCl 100 mg tablet sustained-release 12 hr 1 tab PO DAILY oxycodone 5 mg Tablet 5 mg PO Q4H PRN (Reason: Pain, Moderate (Pain Scale 4-6) Qty: 20 0RF amoxicillin-pot clavulanate 875-125 mg tablet 1 tab PO BID Qty: 14 0RF albuterol sulfate 90 mcg/actuation HFA aerosol inhaler 2 inh inhalation Q8H PRN (Reason: shortness of breath or wheezing) 30 Days Qty: 8.5 2RF benzonatate 100 mg capsule 100 mg PO TID PRN (Reason: cough) Qty: 30 0RF Referrals: Adarsh Johnson, [facility] [Primary Care Provider] - 2 days
[2022-04-29 19:16] VITALS: BP 135/75; PULSE 89; RESP 17; TEMP 36.8; O2SAT 95
[2022-04-29] MEDS: predniSONE 20 MG TABLET 40 MG PO (19:40)
[2022-04-29] MEDS: Albuterol/Iprat 2.5/0.5MG 3 ML AMPUL.NEB INHALE (20:26)
[2022-04-29 20:30] VITALS: PULSE 84; RESP 16; O2SAT 96
--- NOTE | 2022-04-29 21:30 | PC.NURSE ---
Assumed care for discharge.
[2022-04-29 21:37] VITALS: BP 145/82; PULSE 86; TEMP 36.6; O2SAT 94
[2022-04-29 21:44] VITALS: BP 145/82; PULSE 84; RESP 16; TEMP 36.8; O2SAT 97
== END 2022-04-29 21:41 | disposition home or self-care (01) ==
PROVIDERS: Nurse Practitioner Family; Emergency Provider Emergency Medicine; PCP Nurse Practitioner Family
DX: J20.9 Acute bronchitis, unspecified (principal); F17.210 Nicotine dependence, cigarettes, uncomplicated; Z20.822 Contact with and (suspected) exposure to COVID-19; E11.9 Type 2 diabetes mellitus without complications; I10 Essential (primary) hypertension; E78.5 Hyperlipidemia, unspecified; E66.01 Morbid (severe) obesity due to excess calories; Z68.41 Body mass index [BMI] 40.0-44.9, adult; Z79.899 Other long term (current) drug therapy; Z79.4 Long term (current) use of insulin; Z79.02 Long term (current) use of antithrombotics/antiplatelets
CPT/HCPCS: 36415; 71046; 80053; 85025; 87502; 87635; 94640; 99284

== ENCOUNTER 2022-07-14 15:36 | Emergency (ER) | payer OTHER, SELFPAY ==
--- NOTE | 2022-07-14 15:52 | ECG_ITS ---
Test Reason : numbness Blood Pressure : / mmHG Vent. Rate : 096 BPM Atrial Rate : 096 BPM P-R Int : 158 ms QRS Dur : 074 ms QT Int : 350 ms P-R-T Axes : 048 -07 045 degrees QTc Int : 442 ms Normal sinus rhythm Inferior infarct (cited on or before 20-JUL-2021) Anterior infarct (cited on or before 20-JUL-2021) Abnormal ECG When compared with ECG of 20-JUL-2021 18:56, No significant change was found Referred By: Mckenna Parry Electronically Signed By:ERICH HESS MD
--- NOTE | 2022-07-14 15:52 | ED_ITS ---
HPI - General Adult General Chief complaint: General Medical <KERRY Feldman - Last Filed: 07/14/22 15:54> Stated complaint: Leg Pain/numbness <KERRY Feldman - Last Filed: 07/14/22 15:54> Time Seen by Provider: 07/14/22 17:54 <KERRY Feldman - Last Filed: 07/14/22 15:54> Related Data Home medications: Home Medications Medication Instructions Recorded Confirmed doxepin 10 mg capsule 10 - 20 mg PO BEDTIME 01/04/21 09/03/21 bupropion HCl 100 mg tablet,12 hr 1 tab PO DAILY 09/07/21 09/07/21 sustained-release Previous Rx's Medication Instructions Recorded acetaminophen 500 mg tablet 500 mg PO Q6H PRN pain or fever 03/18/21 (Tylenol Extra Strength) #20 tabs naproxen 500 mg tablet 500 mg PO BID PRN pain 10 days #20 03/18/21 tabs fluticasone propionate 110 1 puff inhalation Q12H #12 grams 05/12/21 mcg/actuation HFA aerosol inhaler (Flovent HFA) albuterol sulfate 90 mcg/actuation 2 inh inhalation Q8H PRN shortness 07/20/21 aerosol inhaler of breath or wheezing 30 days #8.5 grams amoxicillin 875 mg-potassium 1 tab PO BID #14 tabs 09/08/21 clavulanate 125 mg tablet oxycodone 5 mg tablet 5 mg PO Q4H PRN Pain, Moderate 09/08/21 (Pain Scale 4-6 #20 tabs losartan 50 mg tablet 50 mg PO DAILY #90 tabs 10/13/21 nirmatrelvir 300 mg (150 mg See Rx Instructions PO .COMPLEX 12/21/21 x2)-ritonavir 100 mg tablet,dose #30 tabs pack(EUA) (Paxlovid) benzonatate 100 mg capsule 100 mg PO TID PRN cough #30 caps 01/03/22 flash glucose scanning reader #1 ea 01/05/22 (FreeStyle Abdon 2 [place]) flash glucose sensor (FreeStyle #1 ea 01/11/22 Abdon 2 Sensor kit) ergocalciferol (vitamin D2) 1,250 1,250 mcg PO QWEEK 90 days #13 caps 01/15/22 mcg (50,000 unit) capsule fluticasone propionate 50 1 spray intranasal BID #16 grams 01/22/22 mcg/actuation nasal spray,suspension diabetic shoes #1 ea 03/07/22 fluticasone propionate 100 1 inh PO BID #60 ea 03/08/22 mcg/actuation blister powder for inhalation (Flovent Diskus) gabapentin 800 mg tablet 800 mg PO TID #84 tabs 03/08/22 levothyroxine 200 mcg tablet 200 mcg PO DAILY #90 tabs 03/09/22 ipratropium 0.5 mg-albuterol 3 mg 3 ml inhalation Q6-8H PRN wheezing 03/28/22 (2.5 mg base)/3 mL nebulization #90 mL soln atorvastatin 40 mg tablet 40 mg PO DAILY 90 days #90 tabs 04/10/22 buspirone 7.5 mg tablet 7.5 mg PO BID 30 days #60 tabs 04/10/22 albuterol sulfate 90 mcg/actuation 2 puff inhalation Q4-6H PRN 04/29/22 aerosol inhaler (Proventil HFA) wheezing #8.5 grams inhalational spacing device #1 ea 04/29/22 (Aerochamber Plus Z Stat spacer) prednisone 20 mg tablet 40 mg PO DAILY #10 tabs 04/29/22 codeine 6.3 mg-guaifenesin 100 10 ml PO Q4-6H PRN allergy 05/02/22 mg/5 mL oral liquid symptoms 10 days #473 mL insulin degludec 200 unit/mL (3 95 unit (0.475 mL) subcut BEDTIME 05/04/22 mL) subcutaneous pen (Tresiba 30 days #14.25 mL FlexTouch U-200 insulin) insulin lispro 100 unit/mL 20 unit (0.2 mL) subcut TID #15 mL 05/04/22 subcutaneous pen (Humalog KwikPen (U-100) Insulin) blood sugar diagnostic (FreeStyle 1 strip miscellaneous QID diabetes 06/11/22 Lite Strips) 30 days #100 strips cyanocobalamin (vitamin B-12) 1,000 mcg PO DAILY 90 days #90 tabs 06/17/22 1,000 mcg tablet omeprazole 20 mg capsule,delayed 20 mg PO DAILY 90 days #90 caps 06/17/22 release escitalopram oxalate 20 mg tablet 20 mg PO DAILY 90 days #90 tabs 06/27/22 <KERRY Feldman - Last Filed: 07/14/22 15:54> Allergies/adverse reactions: Allergies Allergy/AdvReac Type Severity Reaction Status Date / Time doxycycline [DOXYCYCLINE] Allergy Severe THROAT Verified 01/03/22 15:45 SWELLING clindamycin [CLINDAMYCIN] Allergy Intermediate CHEST PAIN Verified 01/03/22 15:45 Sulfa (Sulfonamide Allergy Unknown makes her Verified 01/03/22 15:45 Antibiotics) sick, vomit trimethoprim [From BACTRIM] Allergy Unknown NAUSEA & Verified 01/03/22 15:45 VOMITING sulfamethoxazole AdvReac Mild NAUSEA & Verified 01/03/22 15:45 [From BACTRIM] VOMITING lisinopril Allergy Unknown headaches Uncoded 01/03/22 15:45 <KERRY Feldman - Last Filed: 07/14/22 15:54> [facility] [place] Past Medical History Medical History: Medical History (Updated 07/14/22 @ 20:32 by Mayi Morales MD) Anxiety B12 deficiency Cellulitis of buttock Depression Diabetes Hyperlipidemia Migraines Morbid obesity Sciatic leg pain Uncontrolled diabetes mellitus <KERRY Feldman - Last Filed: 07/14/22 15:54> Surgical History: Surgical History (Updated 09/10/21 @ 00:03 by Luly Boswell) H/O elbow surgery H/O thyroidectomy Hx of tubal ligation <KERRY Feldman - Last Filed: 07/14/22 15:54> Family History Family History: Family History Father HTN (hypertension) CVD (cardiovascular disease) Diabetes mellitus Mental health disorder Mother Diabetes mellitus Uterine cancer COPD (chronic obstructive pulmonary disease) Mental health disorder Maternal Grandmother Breast cancer Paternal Aunt Breast cancer Brother No problems noted. Sister Substance use disorder Mental health disorder Sister No problems noted. Sister No problems noted. Daughter No problems noted. Son No problems noted. Son No problems noted. Son No problems noted. Son No problems noted. Son No problems noted. Son No problems noted. <KERRY Feldman - Last Filed: 07/14/22 15:54> Social History Social History: Social History Household Members: Family Housing: Apartment Do you presently have visiting nurse or other home services: No Alcohol intake: never Patient Tobacco Use Status: Current everyday Tobacco user Tobacco use type: Cigarette Cigarette Packs Per Day: 1 Cigarettes Per Day: 3 Years Smoked: 20 e-Cigarette/Vaping Use: Currently Using Second Hand Smoke Exposure: No Advance Directives: No Advance Directives Information Provided: No service: No Current occupational status: employed Current occupation: [employer] <KERRY Feldman - Last Filed: 07/14/22 15:54> Physical Exam ED Vital Signs: Vital Signs - 24 hr 07/14/22 15:57 Temperature 97.5 F Pulse Rate 107 H Respiratory Rate 20 Blood Pressure 161/81 H Pulse Oximetry 96 Oxygen Delivery Method Room Air BMI result Body Mass Index 38.6 <KERRY Feldman - Last Filed: 07/14/22 15:54> Vital Signs - 24 hr 07/14/22 15:57 Temperature 97.5 F Pulse Rate 107 H Respiratory Rate 20 Blood Pressure 161/81 H Pulse Oximetry 96 Oxygen Delivery Method Room Air BMI result Body Mass Index 38.6 <Mayi Morales MD - Last Filed: 07/14/22 20:33> Course Course Course Narrative: RME- 15:55PM - 51yoF presenting to the ER with complaints of generalized fatigue/malaise, general weakness, body aches/pains all over her body for the past week with associated nausea/vomiting and generalized abdominal pain. Denies any other symptoms related to this. Plan: Labs, EKG, COVID/RSV/flu swab, UA and patient will be sent back to the waiting room to be evaluated in the ED. <KERRY Feldman - Last Filed: 07/14/22 15:54> Medications Administered Discontinued Medications Generic Name Dose Route Start Last Admin Trade Name Freq PRN Reason Stop Dose Admin Sodium Chloride 2,000 mls @ 999 mls/hr 07/14/22 18:08 07/14/22 18:49 Ns IVCONT 07/14/22 20:08 999 mls/hr .Q2H1M ONE Administration Insulin Human Regular 10 unit 07/14/22 18:08 07/14/22 18:49 Insulin Regular, Human 100 Unit/Ml 3 Ml Vial IVPUSH 07/14/22 18:09 10 unit ONCE ONE Administration Levofloxacin 500 mg 07/14/22 18:08 07/14/22 18:49 Levofloxacin 500 Mg Tablet PO 07/14/22 18:09 500 mg ONCE ONE Administration <KERRY Feldman - Last Filed: 07/14/22 15:54> Medications Administered Discontinued Medications Generic Name Dose Route Start Last Admin Trade Name Akila PRN Reason Stop Dose Admin Sodium Chloride 2,000 mls @ 999 mls/hr 07/14/22 18:08 07/14/22 18:49 Ns IVCONT 07/14/22 20:08 999 mls/hr .Q2H1M ONE Administration Insulin Human Regular 10 unit 07/14/22 18:08 07/14/22 18:49 Insulin Regular, Human 100 Unit/Ml 3 Ml Vial IVPUSH 07/14/22 18:09 10 unit ONCE ONE Administration Levofloxacin 500 mg 07/14/22 18:08 07/14/22 18:49 Levofloxacin 500 Mg Tablet PO 07/14/22 18:09 500 mg ONCE ONE Administration <Mayi Morales MD - Last Filed: 07/14/22 20:33> Medical Decision Making Medical Decision Making MDM Narrative: -discussed with the patient she has a UTI and patient's glucose is elevated. -patient was giving IV fluids, 10 units of insulin, 1st dose of p.o. Levaquin for UTI. -informed by the patient's nurse that the patient eloped <Mayi Morales MD - Last Filed: 07/14/22 20:33> Lab Data MDM Lab Attestation statement: I reviewed the patient's lab results. <Mayi Morales MD - Last Filed: 07/14/22 20:33> Result Diagrams: 07/14/22 16:19 07/14/22 16:19 <KERRY Feldman - Last Filed: 07/14/22 15:54> Labs: Lab Results 07/14/22 07/14/22 07/14/22 Range/Units 16:19 16:19 16:19 WBC 8.7 (4.8-10.8) X10*3/uL RBC 5.30 (4.20-5.50) X10*6/uL Hgb 15.8 (12.0-16.0) g/dl Hct 45.1 (37.0-47.0) % MCV 85.1 (80.0-98.0) fL MCH 29.8 (27.0-33.0) pg MCHC 35.0 (31.0-35.0) g/dl RDW 12.5 (11.0-16.0) % Plt Count 230 (160-400) X10*3/uL MPV 11.3 (9.4-12.3) fL Immature Gran % (Auto) 0.2 (0.0-0.4) % Neut % (Auto) 57.7 (45-73) % Lymph % (Auto) 32.3 (20-40) % [place] % (Auto) 6.0 (2-11) % Eos % (Auto) 2.9 (0-4) % Baso % (Auto) 0.9 (0-2) % Lymph # (Auto) 2.8 (1.2-4.9) X10*3/uL [place] # (Auto) 0.5 (0.1-1.2) X10*3/uL Eos # (Auto) 0.3 (0.0-0.4) X10*3/uL Baso # (Auto) 0.1 (0.0-0.2) X10*3/uL Abs Immat Gran (auto) 0.02 (0.00-0.03) X10*3/uL Absolute Neuts (auto) 5.0 (2.0-8.3) x10*3/uL Absolute Nucleated RBC 0.000 (0.0-0.012) X10*3/uL Nucleated RBC % (auto) 0.0 (0.0-0.2) /100WBC ESR 16 (0-20) MM/HR PT 13.2 H (10.0-13.1) SEC INR 1.1 (0.9-1.1) Sodium (135-145) mmol/L Potassium (3.3-5.1) mmol/L Chloride (96-108) mmol/L Carbon Dioxide (22-29) mmol/L Anion Gap (12-20) BUN (9-16) mg/dL Creatinine (0.5-1.4) mg/dL Estim Creat Clear Calc Estimated GFR Random Glucose (60-115) mg/dL Calcium (8.4-10.2) mg/dL Magnesium (1.6-2.6) mg/dL Total Bilirubin (0.0-1.0) mg/dL AST (5-31) U/L ALT (0-31) U/L Alkaline Phosphatase (39-117) U/L Total Creatine Kinase (26-140) U/L C-Reactive Protein (< or = 0.50) mg/dL Total Protein (6.5-8.0) g/dL Albumin (3.5-5.0) g/dL TSH (0.32-4.0) uIU/mL Free T4 (0.71-1.85) ng/dL Urine Color Urine Appearance Urine pH (5.0-9.0) Ur Specific [place] (1.005-1.025) Urine Protein (Neg-Trace) mg/dL Urine Glucose (UA) (Negative) mg/dL Urine Ketones (Negative) mg/dL Urine Blood (Negative) Urine Nitrite (Negative) Ur Leukocyte Esterase (Negative) Urine RBC (0-2) /HPF Urine WBC (0-5) /HPF Ur Squamous Epith Cells (0-2) /HPF Urine Bacteria (None Seen) Hyaline Casts (0-2) /LPF Acetone, Qual (Negative) Influenza Type A (PCR) (Negative) Influenza Type B (PCR) (Negative) RSV RNA Qual (PCR) (Negative) SARS-CoV-2 RNA (RT-PCR) (Negative) 07/14/22 07/14/22 07/14/22 Range/Units 16:19 16:19 16:19 WBC (4.8-10.8) X10*3/uL RBC (4.20-5.50) X10*6/uL Hgb (12.0-16.0) g/dl Hct (37.0-47.0) % MCV (80.0-98.0) fL MCH (27.0-33.0) pg MCHC (31.0-35.0) g/dl RDW (11.0-16.0) % Plt Count (160-400) X10*3/uL MPV (9.4-12.3) fL Immature Gran % (Auto) (0.0-0.4) % Neut % (Auto) (45-73) % Lymph % (Auto) (20-40) % [place] % (Auto) (2-11) % Eos % (Auto) (0-4) % Baso % (Auto) (0-2) % Lymph # (Auto) (1.2-4.9) X10*3/uL [place] # (Auto) (0.1-1.2) X10*3/uL Eos # (Auto) (0.0-0.4) X10*3/uL Baso # (Auto) (0.0-0.2) X10*3/uL Abs Immat Gran (auto) (0.00-0.03) X10*3/uL Absolute Neuts (auto) (2.0-8.3) x10*3/uL Absolute Nucleated RBC (0.0-0.012) X10*3/uL Nucleated RBC % (auto) (0.0-0.2) /100WBC ESR (0-20) MM/HR PT (10.0-13.1) SEC INR (0.9-1.1) Sodium 134 L (135-145) mmol/L Potassium 5.1 (3.3-5.1) mmol/L Chloride 99 (96-108) mmol/L Carbon Dioxide 28 (22-29) mmol/L Anion Gap 12 (12-20) BUN 11 (9-16) mg/dL Creatinine 0.92 (0.5-1.4) mg/dL Estim Creat Clear Calc 95.3 Estimated GFR > 60 Random Glucose 629 H* (60-115) mg/dL Calcium 9.0 (8.4-10.2) mg/dL Magnesium 1.7 (1.6-2.6) mg/dL Total Bilirubin 0.5 (0.0-1.0) mg/dL AST 22 (5-31) U/L ALT 11 (0-31) U/L Alkaline Phosphatase 111 (39-117) U/L Total Creatine Kinase 49 (26-140) U/L C-Reactive Protein 1.28 H (< or = 0.50) mg/dL Total Protein 6.7 (6.5-8.0) g/dL Albumin 3.4 L (3.5-5.0) g/dL TSH 0.04 L (0.32-4.0) uIU/mL Free T4 1.42 (0.71-1.85) ng/dL Urine Color Urine Appearance Urine pH (5.0-9.0) Ur Specific [place] (1.005-1.025) Urine Protein (Neg-Trace) mg/dL Urine Glucose (UA) (Negative) mg/dL Urine Ketones (Negative) mg/dL Urine Blood (Negative) Urine Nitrite (Negative) Ur Leukocyte Esterase (Negative) Urine RBC (0-2) /HPF Urine WBC (0-5) /HPF Ur Squamous Epith Cells (0-2) /HPF Urine Bacteria (None Seen) Hyaline Casts (0-2) /LPF Acetone, Qual Negative (Negative) Influenza Type A (PCR) NEGATIVE (Negative) Influenza Type B (PCR) NEGATIVE (Negative) RSV RNA Qual (PCR) NEGATIVE (Negative) SARS-CoV-2 RNA (RT-PCR) NEGATIVE (Negative) 07/14/22 Range/Units 16:19 WBC (4.8-10.8) X10*3/uL RBC (4.20-5.50) X10*6/uL Hgb (12.0-16.0) g/dl Hct (37.0-47.0) % MCV (80.0-98.0) fL MCH (27.0-33.0) pg MCHC (31.0-35.0) g/dl RDW (11.0-16.0) % Plt Count (160-400) X10*3/uL MPV (9.4-12.3) fL Immature Gran % (Auto) (0.0-0.4) % Neut % (Auto) (45-73) % Lymph % (Auto) (20-40) % [place] % (Auto) (2-11) % Eos % (Auto) (0-4) % Baso % (Auto) (0-2) % Lymph # (Auto) (1.2-4.9) X10*3/uL [place] # (Auto) (0.1-1.2) X10*3/uL Eos # (Auto) (0.0-0.4) X10*3/uL Baso # (Auto) (0.0-0.2) X10*3/uL Abs Immat Gran (auto) (0.00-0.03) X10*3/uL Absolute Neuts (auto) (2.0-8.3) x10*3/uL Absolute Nucleated RBC (0.0-0.012) X10*3/uL Nucleated RBC % (auto) (0.0-0.2) /100WBC ESR (0-20) MM/HR PT (10.0-13.1) SEC INR (0.9-1.1) Sodium (135-145) mmol/L Potassium (3.3-5.1) mmol/L Chloride (96-108) mmol/L Carbon Dioxide (22-29) mmol/L Anion Gap (12-20) BUN (9-16) mg/dL Creatinine (0.5-1.4) mg/dL Estim Creat Clear Calc Estimated GFR Random Glucose (60-115) mg/dL Calcium (8.4-10.2) mg/dL Magnesium (1.6-2.6) mg/dL Total Bilirubin (0.0-1.0) mg/dL AST (5-31) U/L ALT (0-31) U/L Alkaline Phosphatase (39-117) U/L Total Creatine Kinase (26-140) U/L C-Reactive Protein (< or = 0.50) mg/dL Total Protein (6.5-8.0) g/dL Albumin (3.5-5.0) g/dL TSH (0.32-4.0) uIU/mL Free T4 (0.71-1.85) ng/dL Urine Color Yellow Urine Appearance Clear Urine pH 7.0 (5.0-9.0) Ur Specific [place] >= 1.030 H (1.005-1.025) Urine Protein Negative (Neg-Trace) mg/dL Urine Glucose (UA) >=1000 H (Negative) mg/dL Urine Ketones Negative (Negative) mg/dL Urine Blood Trace H (Negative) Urine Nitrite Negative (Negative) Ur Leukocyte Esterase Small (1+) H (Negative) Urine RBC 6-10 H (0-2) /HPF Urine WBC 11-20 H (0-5) /HPF Ur Squamous Epith Cells 6-10 (0-2) /HPF Urine Bacteria 1+ (None Seen) Hyaline Casts 0-2 (0-2) /LPF Acetone, Qual (Negative) Influenza Type A (PCR) (Negative) Influenza Type B (PCR) (Negative) RSV RNA Qual (PCR) (Negative) SARS-CoV-2 RNA (RT-PCR) (Negative) <KERRY Feldman - Last Filed: 07/14/22 15:54> Lab Results 07/14/22 07/14/22 07/14/22 Range/Units 16:19 16:19 16:19 WBC 8.7 (4.8-10.8) X10*3/uL RBC 5.30 (4.20-5.50) X10*6/uL Hgb 15.8 (12.0-16.0) g/dl Hct 45.1 (37.0-47.0) % MCV 85.1 (80.0-98.0) fL MCH 29.8 (27.0-33.0) pg MCHC 35.0 (31.0-35.0) g/dl RDW 12.5 (11.0-16.0) % Plt Count 230 (160-400) X10*3/uL MPV 11.3 (9.4-12.3) fL Immature Gran % (Auto) 0.2 (0.0-0.4) % Neut % (Auto) 57.7 (45-73) % Lymph % (Auto) 32.3 (20-40) % [place] % (Auto) 6.0 (2-11) % Eos % (Auto) 2.9 (0-4) % Baso % (Auto) 0.9 (0-2) % Lymph # (Auto) 2.8 (1.2-4.9) X10*3/uL [place] # (Auto) 0.5 (0.1-1.2) X10*3/uL Eos # (Auto) 0.3 (0.0-0.4) X10*3/uL Baso # (Auto) 0.1 (0.0-0.2) X10*3/uL Abs Immat Gran (auto) 0.02 (0.00-0.03) X10*3/uL Absolute Neuts (auto) 5.0 (2.0-8.3) x10*3/uL Absolute Nucleated RBC 0.000 (0.0-0.012) X10*3/uL Nucleated RBC % (auto) 0.0 (0.0-0.2) /100WBC ESR 16 (0-20) MM/HR PT 13.2 H (10.0-13.1) SEC INR 1.1 (0.9-1.1) Sodium (135-145) mmol/L Potassium (3.3-5.1) mmol/L Chloride (96-108) mmol/L Carbon Dioxide (22-29) mmol/L Anion Gap (12-20) BUN (9-16) mg/dL Creatinine (0.5-1.4) mg/dL Estim Creat Clear Calc Estimated GFR Random Glucose (60-115) mg/dL Calcium (8.4-10.2) mg/dL Magnesium (1.6-2.6) mg/dL Total Bilirubin (0.0-1.0) mg/dL AST (5-31) U/L ALT (0-31) U/L Alkaline Phosphatase (39-117) U/L Total Creatine Kinase (26-140) U/L C-Reactive Protein (< or = 0.50) mg/dL Total Protein (6.5-8.0) g/dL Albumin (3.5-5.0) g/dL TSH (0.32-4.0) uIU/mL Free T4 (0.71-1.85) ng/dL Urine Color Urine Appearance Urine pH (5.0-9.0) Ur Specific [place] (1.005-1.025) Urine Protein (Neg-Trace) mg/dL Urine Glucose (UA) (Negative) mg/dL Urine Ketones (Negative) mg/dL Urine Blood (Negative) Urine Nitrite (Negative) Ur Leukocyte Esterase (Negative) Urine RBC (0-2) /HPF Urine WBC (0-5) /HPF Ur Squamous Epith Cells (0-2) /HPF Urine Bacteria (None Seen) Hyaline Casts (0-2) /LPF Acetone, Qual (Negative) Influenza Type A (PCR) (Negative) Influenza Type B (PCR) (Negative) RSV RNA Qual (PCR) (Negative) SARS-CoV-2 RNA (RT-PCR) (Negative) 07/14/22 07/14/22 07/14/22 Range/Units 16:19 16:19 16:19 WBC (4.8-10.8) X10*3/uL RBC (4.20-5.50) X10*6/uL Hgb (12.0-16.0) g/dl Hct (37.0-47.0) % MCV (80.0-98.0) fL MCH (27.0-33.0) pg MCHC (31.0-35.0) g/dl RDW (11.0-16.0) % Plt Count (160-400) X10*3/uL MPV (9.4-12.3) fL Immature Gran % (Auto) (0.0-0.4) % Neut % (Auto) (45-73) % Lymph % (Auto) (20-40) % [place] % (Auto) (2-11) % Eos % (Auto) (0-4) % Baso % (Auto) (0-2) % Lymph # (Auto) (1.2-4.9) X10*3/uL [place] # (Auto) (0.1-1.2) X10*3/uL Eos # (Auto) (0.0-0.4) X10*3/uL Baso # (Auto) (0.0-0.2) X10*3/uL Abs Immat Gran (auto) (0.00-0.03) X10*3/uL Absolute Neuts (auto) (2.0-8.3) x10*3/uL Absolute Nucleated RBC (0.0-0.012) X10*3/uL Nucleated RBC % (auto) (0.0-0.2) /100WBC ESR (0-20) MM/HR PT (10.0-13.1) SEC INR (0.9-1.1) Sodium 134 L (135-145) mmol/L Potassium 5.1 (3.3-5.1) mmol/L Chloride 99 (96-108) mmol/L Carbon Dioxide 28 (22-29) mmol/L Anion Gap 12 (12-20) BUN 11 (9-16) mg/dL Creatinine 0.92 (0.5-1.4) mg/dL Estim Creat Clear Calc 95.3 Estimated GFR > 60 Random Glucose 629 H* (60-115) mg/dL Calcium 9.0 (8.4-10.2) mg/dL Magnesium 1.7 (1.6-2.6) mg/dL Total Bilirubin 0.5 (0.0-1.0) mg/dL AST 22 (5-31) U/L ALT 11 (0-31) U/L Alkaline Phosphatase 111 (39-117) U/L Total Creatine Kinase 49 (26-140) U/L C-Reactive Protein 1.28 H (< or = 0.50) mg/dL Total Protein 6.7 (6.5-8.0) g/dL Albumin 3.4 L (3.5-5.0) g/dL TSH 0.04 L (0.32-4.0) uIU/mL Free T4 1.42 (0.71-1.85) ng/dL Urine Color Urine Appearance Urine pH (5.0-9.0) Ur Specific [place] (1.005-1.025) Urine Protein (Neg-Trace) mg/dL Urine Glucose (UA) (Negative) mg/dL Urine Ketones (Negative) mg/dL Urine Blood (Negative) Urine Nitrite (Negative) Ur Leukocyte Esterase (Negative) Urine RBC (0-2) /HPF Urine WBC (0-5) /HPF Ur Squamous Epith Cells (0-2) /HPF Urine Bacteria (None Seen) Hyaline Casts (0-2) /LPF Acetone, Qual Negative (Negative) Influenza Type A (PCR) NEGATIVE (Negative) Influenza Type B (PCR) NEGATIVE (Negative) RSV RNA Qual (PCR) NEGATIVE (Negative) SARS-CoV-2 RNA (RT-PCR) NEGATIVE (Negative) 07/14/22 Range/Units 16:19 WBC (4.8-10.8) X10*3/uL RBC (4.20-5.50) X10*6/uL Hgb (12.0-16.0) g/dl Hct (37.0-47.0) % MCV (80.0-98.0) fL MCH (27.0-33.0) pg MCHC (31.0-35.0) g/dl RDW (11.0-16.0) % Plt Count (160-400) X10*3/uL MPV (9.4-12.3) fL Immature Gran % (Auto) (0.0-0.4) % Neut % (Auto) (45-73) % Lymph % (Auto) (20-40) % [place] % (Auto) (2-11) % Eos % (Auto) (0-4) % Baso % (Auto) (0-2) % Lymph # (Auto) (1.2-4.9) X10*3/uL [place] # (Auto) (0.1-1.2) X10*3/uL Eos # (Auto) (0.0-0.4) X10*3/uL Baso # (Auto) (0.0-0.2) X10*3/uL Abs Immat Gran (auto) (0.00-0.03) X10*3/uL Absolute Neuts (auto) (2.0-8.3) x10*3/uL Absolute Nucleated RBC (0.0-0.012) X10*3/uL Nucleated RBC % (auto) (0.0-0.2) /100WBC ESR (0-20) MM/HR PT (10.0-13.1) SEC INR (0.9-1.1) Sodium (135-145) mmol/L Potassium (3.3-5.1) mmol/L Chloride (96-108) mmol/L Carbon Dioxide (22-29) mmol/L Anion Gap (12-20) BUN (9-16) mg/dL Creatinine (0.5-1.4) mg/dL Estim Creat Clear Calc Estimated GFR Random Glucose (60-115) mg/dL Calcium (8.4-10.2) mg/dL Magnesium (1.6-2.6) mg/dL Total Bilirubin (0.0-1.0) mg/dL AST (5-31) U/L ALT (0-31) U/L Alkaline Phosphatase (39-117) U/L Total Creatine Kinase (26-140) U/L C-Reactive Protein (< or = 0.50) mg/dL Total Protein (6.5-8.0) g/dL Albumin (3.5-5.0) g/dL TSH (0.32-4.0) uIU/mL Free T4 (0.71-1.85) ng/dL Urine Color Yellow Urine Appearance Clear Urine pH 7.0 (5.0-9.0) Ur Specific [place] >= 1.030 H (1.005-1.025) Urine Protein Negative (Neg-Trace) mg/dL Urine Glucose (UA) >=1000 H (Negative) mg/dL Urine Ketones Negative (Negative) mg/dL Urine Blood Trace H (Negative) Urine Nitrite Negative (Negative) Ur Leukocyte Esterase Small (1+) H (Negative) Urine RBC 6-10 H (0-2) /HPF Urine WBC 11-20 H (0-5) /HPF Ur Squamous Epith Cells 6-10 (0-2) /HPF Urine Bacteria 1+ (None Seen) Hyaline Casts 0-2 (0-2) /LPF Acetone, Qual (Negative) Influenza Type A (PCR) (Negative) Influenza Type B (PCR) (Negative) RSV RNA Qual (PCR) (Negative) SARS-CoV-2 RNA (RT-PCR) (Negative) <Mayi Morales MD - Last Filed: 07/14/22 20:33> Discharge Plan Discharge Clinical Impression: Hyperglycemia, Urinary tract infection <KERRY Feldman - Last Filed: 07/14/22 15:54> Patient Disposition: Elopement <KERRY Feldman - Last Filed: 07/14/22 15:54> Prescriptions: No Action doxepin 10 mg capsule 10 - 20 mg PO BEDTIME Flovent HFA 110 mcg/actuation HFA aerosol inhaler 1 puff inhalation Q12H Qty: 12 4RF Rx Instructions: administer with spacer losartan 50 mg tablet 50 mg PO DAILY Qty: 90 0RF Paxlovid (EUA) 300 mg (150 mg x 2)-100 mg tablet See Rx Instructions PO .COMPLEX Qty: 30 0RF Rx Instructions: take TWO 150 mg tablets of nirmatrelvir with ONE 100 mg tablet of ritonavir twice daily for 5 days PO (DME) FreeStyle [place]don 2 [place] Misc See Rx Instructions .Route Qty: 1 4RF Rx Instructions: tid testing (DME) FreeStyle Abdon 2 Sensor Kit See Rx Instructions .Route Qty: 1 4RF Rx Instructions: tid testing ergocalciferol (vitamin D2) 1,250 mcg (50,000 unit) capsule 1,250 mcg PO QWEEK 90 Days Qty: 13 3RF fluticasone propionate 50 mcg/actuation spray,suspension 1 spray intranasal BID Qty: 16 3RF Rx Instructions: administer into each nostril (DME) diabetic shoes See Rx Instructions .Route .MEDSUPPLY Qty: 1 0RF Rx Instructions: USE daily Flovent Diskus 100 mcg/actuation blister with device 1 inh PO BID Qty: 60 2RF gabapentin 800 mg tablet 800 mg PO TID Qty: 84 3RF levothyroxine 200 mcg tablet 200 mcg PO DAILY Qty: 90 3RF ipratropium-albuterol 0.5 mg-3 mg(2.5 mg base)/3 mL solution for nebulization 3 ml inhalation Q6-8H PRN (Reason: wheezing) Qty: 90 0RF buspirone 7.5 mg tablet 7.5 mg PO BID 30 Days Qty: 60 3RF atorvastatin 40 mg tablet 40 mg PO DAILY 90 Days Qty: 90 0RF codeine-guaifenesin 6.3-100 mg/5 mL liquid 10 ml PO Q4-6H PRN (Reason: allergy symptoms) 10 Days Qty: 473 0RF Tresiba FlexTouch U-200 200 unit/mL (3 mL) insulin pen 95 unit subcut BEDTIME 30 Days Qty: 14.25 1RF insulin lispro [Humalog KwikPen Insulin] 100 unit/mL insulin pen 20 unit subcut TID Qty: 15 0RF FreeStyle Lite Strips Strip 1 strip miscellaneous QID 30 Days Qty: 100 0RF cyanocobalamin (vitamin B-12) 1,000 mcg tablet 1,000 mcg PO DAILY 90 Days Qty: 90 0RF omeprazole 20 mg capsule,delayed release(DR/EC) 20 mg PO DAILY 90 Days Qty: 90 0RF escitalopram oxalate 20 mg tablet 20 mg PO DAILY 90 Days Qty: 90 0RF acetaminophen [Tylenol Extra Strength] 500 mg tablet 500 mg PO Q6H PRN (Reason: pain or fever) Qty: 20 0RF naproxen 500 mg tablet 500 mg PO BID PRN (Reason: pain) 10 Days Qty: 20 0RF bupropion HCl 100 mg tablet sustained-release 12 hr 1 tab PO DAILY oxycodone 5 mg Tablet 5 mg PO Q4H PRN (Reason: Pain, Moderate (Pain Scale 4-6) Qty: 20 0RF amoxicillin-pot clavulanate 875-125 mg tablet 1 tab PO BID Qty: 14 0RF prednisone 20 mg tablet 40 mg PO DAILY Qty: 10 0RF albuterol sulfate [Proventil HFA] 90 mcg/actuation HFA aerosol inhaler 2 puff inhalation Q4-6H PRN (Reason: wheezing) Qty: 8.5 0RF (DME) Aerochamber Plus Z Stat Spacer See Rx Instructions .Route Qty: 1 0RF Rx Instructions: As directed albuterol sulfate 90 mcg/actuation HFA aerosol inhaler 2 inh inhalation Q8H PRN (Reason: shortness of breath or wheezing) 30 Days Qty: 8.5 2RF benzonatate 100 mg capsule 100 mg PO TID PRN (Reason: cough) Qty: 30 0RF <KERRY Feldman - Last Filed: 07/14/22 15:54> Interventions: ED Discharge Assessment Last Done: 07/14/22 20:15 <KERRY Feldman - Last Filed: 07/14/22 15:54> Discharge Date/Time: 07/14/22 20:16 <KERRY Feldman - Last Filed: 07/14/22 15:54>
[2022-07-14 15:57] VITALS: BP 161/81; PULSE 107; RESP 20; TEMP 36.4; O2SAT 96; BMI 38.6
--- OUTSIDE RECORDS SUMMARY | 2022-07-14 16:26 | XMS_ITS | Continuity of Care Document ---
:1970 Author Organization [facility] Address [address] [place] [phone]- Care Team Providers Name Role Phone Nagi AL, Jolynn Jain Primary Care Physician Encounter [facility] [place] ACCT R [id number] Date(s): 07/21/21 - 08/20/21 [facility] [address] [place] [id number] Attending Physician: AdmMillie james Admitting Physician: Admtr, Ar8 Referring Physician: Admtr, Ar8 Allergies, Adverse Reactions, Alerts Substance Reaction Severity Status doxycycline ANAPHYLAXIS Active Bactrim VERY SICK Active Medications calcium-vitamin D 600 mg-500 intl units oral tablet, extended release 2 tablet, By Mouth, 2 times a day, # 80 tablet, 0 Refills, Maintenance, 10/30/18 11:19:35 EDT, ER Tablet Start Date: 10/30/18 Status: OrderedCeleXA 40 mg oral tablet 40 mg, 1, tablet, By Mouth, Daily at bedtime, # 30 tablet, Refills 0, Maintenance, 09/12/18 15:58:14EDT Start Date: 09/12/18 Status: OrderedFreestyle escobar 2 14-day sensors Freestyle escobar 2 14-day sensors, See Instructions, # 2 each, Refills 6, Tot. Refills 6, Maintenance, Freestyle escobar 2 reader ; Freestyle escobar 2 14-day sensors, 04/19/21 17:04:00 EST, Supply, 166, cm, 04/13/20 9:21:00 EST, Height Start Date: 04/19/21 Status: OrderedFreestyle escobar 2 reader Freestyle escobar 2 reader, See Instructions, # 1 each, Refills 0, Tot. Refills 0, Maintenance, dx 10.65, 01/05/21 11:03:00 EDT, Supply, 166, cm, 04/13/20 9:21:00 EST, Height Start Date: 01/05/21 Status: OrderedFreestyle Lite Lancets See Instructions, # 200 each, Refills 5, Tot. Refills 5, Maintenance, use as directed for Type 2 Diabetes Mellitus 4x a day dx 11.9, 01/05/21 11:02:00 EDT, Supply, 166, cm, 04/13/20 9:21:00 EST, Height Start Date: 01/05/21 Stop Date: 07/04/21 Status: OrderedFreestyle Lite Test Strips See Instructions, # 200 each, Tot. Refills 5, Maintenance, use as directed for Type 2 Diabetes Mellitus 4x a day dx 11.9, 01/05/21 11:02:00 EDT, Supply, 166, cm, 04/13/20 9:21:00 EST, Height Start Date: 01/05/21 Stop Date: 02/04/21 Status: Orderedgabapentin 800 mg oral tablet 1 tablet = 800 mg, By Mouth, 3 times a day, # 90 tablet, 0 Refills, Maintenance, 09/12/18 15:58:26 EDT, Tablet Start Date: 09/12/18 Status: OrderedHumalog 100 u/ml subcutaneous injection See Instructions, 20 units Subcutaneous Injection 3 times a day before meals, 0 Refills, Maintenance, 09/12/18 16:01:00 EDT, Solution Start Date: 09/12/18 Status: OrderedHumalog Kwik Pen 100 units/mL subcutaneous injection See Instructions, Subcutaneous Infusion, Use as directed for Diabetes mellitus type 2. (Max Rgjj=729wsesl/day) Dx 11.9, # 3 each, 5 Refills, Maintenance, 01/05/21 10:57:00 EDT, [facility]/pharmacy #[id number], Partial fill upon patient request if the prescription... Start Date: 01/05/21 Stop Date: 07/04/21 Status: OrderedJanuvia 100 mg oral tablet = 100 mg, By Mouth, Daily, # 30 tablet, 0 Refills, Maintenance, 10/21/18 10:37:56 EDT, Tablet Start Date: 10/21/18 Status: OrderedJardiance 10 mg oral tablet 1 tablet = 10 mg, By Mouth, Daily in AM, # 30 tablet, 0 Refills, Maintenance, 01/05/21 11:00:00 EDT,Tablet, [facility]/pharmacy #[id number], Partial fill upon patient request if the prescription is for a schedule II opioid drug., 166, cm, 04/13/20 9:21:00 EST, He... Start Date: 01/05/21 Status: OrderedLantus 100 u/ml subcutaneous solution See Instructions, 45U BEFORE BED, 0 Refills, Maintenance, 09/12/18 16:01:38 EDT Start Date: 09/12/18 Status: Orderedlevothyroxine 125 mcg (0.125 mg) oral tablet 1 tablet = 125 mcg, By Mouth, Daily, take 1 tab first thing in the AM on an empty stomach 1hr prior to breakfast along with the 75mcg tab, # 30 tablet, 1 Refills, Maintenance, 10/30/18 11:08:51 EDT, Tablet Start Date: 10/30/18 Status: Orderedlevothyroxine 75 mcg (0.075 mg) oral tablet 1 tablet = 75 mcg, By Mouth, Daily, take 1 tab first thing in the AM on an empty stomach 1hr prior to breakfast along with the 125mcg tab, # 30 tablet, 1 Refills, Maintenance, 10/30/18 11:08:45 EDT, Tablet Start Date: 10/30/18 Status: OrderedLosartan = 25 mg, By Mouth, Daily, 0 Refills, Maintenance, 09/12/18 16:00:17 EDT Start Date: 09/12/18 Status: OrderedPen [place], 32 G x 4 mm BD Ultra Fine III See instructions, # 200 each, Refills 5, Tot. Refills 5, Maintenance, use as directed for Type 2 Diabetes Mellitus 4x a day dx 11.9, 01/05/21 10:55:00 EDT, Compound, 166, cm, 04/13/20 9:21:00 EST, Height Start Date: 01/05/21 Stop Date: 07/04/21 Status: OrderedProAir HFA 90 mcg/inh inhalation aerosol with adapter 1, puffs, Inhalation, Every 4 hours, PRN, # 8.5 Gm, Refills 0, Maintenance, 10/29/18 11:34:31 EDT, Aerosol Start Date: 10/29/18 Status: OrderedTresiba Subcutaneous Infusion, Daily, 0 Refills, Maintenance, 04/13/20 9:23:00 EST Start Date: 04/13/20 Status: OrderedTresiba FlexTouch 200 units/mL subcutaneous solution = 80 units, Subcutaneous Injection, Daily, rotate injection sites, # 9 mL, 6 Refills, Maintenance, 04/19/21 17:10:00 EST, Solution, [facility]/pharmacy #[id number], Partial fill upon patient request if the prescription is for a schedule II opioid drug., 166, cm, 1... Start Date: 04/19/21 Stop Date: 11/15/21 Status: OrderedTylenol 325 mg oral tablet 650 mg, By Mouth, Every 4 hours, PRN, Refills 0, Maintenance, Pain , Moderate, 10/30/18 11:16:42 EDT Start Date: 10/30/18 Status: Ordered Social History Social History Type Response Smoking Status Current every day smoker entered on: 02/10/15 Sex
--- OUTSIDE RECORDS SUMMARY | 2022-07-14 16:26 | XMS_ITS | Continuity of Care Document ---
:1970 Author Organization [facility] Address [address] [place] [phone]- Care Team Providers Name Role Phone Nagi AL, Jolynn Jain Primary Care Physician Encounter [facility] [place] Date(s): 01/05/21 - 02/04/21 [facility] [address] [place] [id number] Allergies, Adverse Reactions, Alerts Substance Reaction Severity [...] reader ; Freestyle escobar 2 14-day sensors, 01/05/21 11:03:00 EDT, Supply, 166, cm, 04/13/20 9:21:00 EST, Height Start Date: 01/05/21 Status: OrderedFreestyle escobar 2 reader Freestyle escobar [...] directed for Diabetes mellitus type 2. (Max Gesl=201splvd/day) Dx 11.9, # 3 each, 5 Refills, Maintenance, 01/05/21 10:57:00 EDT, [facility]/pharmacy #[id number], Partial fill upon patient request if the [...] tablet, 0 Refills, Maintenance, 01/05/21 11:00:00 EDT,Tablet, [facility]/pharmacy #[id number], Partial fill upon patient request if [...] 16:00:17 EDT Start Date: 09/12/18 Status: OrderedPen [place], 32 G x 4 mm BD Ultra [...] EST Start Date: 04/13/20 Status: OrderedTresiba FlexTouch 100 units/mL subcutaneous solution = 80 units, Subcutaneous Infusion, Daily, # 10 mL, 6 Refills, Maintenance, 01/05/21 10:57:00 EDT, [facility]/pharmacy #[id number], Partial fill upon patient request if the prescription is for a schedule II opioid drug., 166, cm, 04/13/20 9:21:00 EST, Height Start Date: 01/05/21 Stop Date: 08/03/21 Status: OrderedTylenol 325 mg oral tablet 650 mg, By Mouth, Every 4 hours, PRN, Refills 0, Maintenance, Pain , Moderate, 10/30/18 11:16:42 EDT Start Date: 10/30/18 Status: Ordered Social History Social History Type Response Smoking Status Current every day smoker entered on: 02/10/15 Sex
--- OUTSIDE RECORDS SUMMARY | 2022-07-14 16:26 | XMS_ITS | Continuity of Care Document ---
:1970 Author Organization [facility] Address [address] [place] [phone]- Care Team Providers Name Role Phone Nagi AL, Jolynn Jain Primary Care Physician [place] [facility] [place] Date(s): 04/14/20 - 07/14/20 [facility] [address] [place] [id number] Attending Physician: Lisa Graham MD Admitting Physician: Lisa Graham MD Referring Physician: Jolynn Lazar NP Allergies, Adverse Reactions, Alerts Substance Reaction Severity [...] Maintenance, 09/12/18 15:58:14EDT Start Date: 09/12/18 Status: Orderedgabapentin 800 mg oral tablet 1 tablet = 800 mg, By Mouth, 3 times a day, # 90 tablet, 0 Refills, Maintenance, 09/12/18 15:58:26 EDT, Tablet Start Date: 09/12/18 Status: OrderedHumalog 100 u/ml subcutaneous injection See Instructions, 20 units Subcutaneous Injection 3 times a day before meals, 0 Refills, Maintenance, 09/12/18 16:01:00 EDT, Solution Start Date: 09/12/18 Status: OrderedJanuvia 100 mg oral tablet = 100 mg, By Mouth, Daily, # 30 tablet, 0 Refills, Maintenance, 10/21/18 10:37:56 EDT, Tablet Start Date: 10/21/18 Status: OrderedLantus 100 u/ml subcutaneous solution See [...] 09/12/18 16:00:17 EDT Start Date: 09/12/18 Status: OrderedProAir HFA 90 mcg/inh inhalation aerosol with adapter 1, puffs, Inhalation, Every 4 hours, PRN, # 8.5 Gm, Refills 0, Maintenance, 10/29/18 11:34:31 EDT, Aerosol Start Date: 10/29/18 Status: OrderedTresiba Subcutaneous Infusion, Daily, 0 Refills, Maintenance, 04/13/20 9:23:00 EST Start Date: 04/13/20 Status: OrderedTylenol 325 mg oral tablet 650 mg, By Mouth, Every 4 hours, PRN, Refills 0, Maintenance, Pain , Moderate, 10/30/18 11:16:42 EDT Start Date: 10/30/18 Status: Ordered Social History Social History Type Response Smoking Status Current every day smoker entered on: 02/10/15 Sex
--- OUTSIDE RECORDS SUMMARY | 2022-07-14 16:26 | XMS_ITS | Continuity of Care Document ---
:1970 Author Organization [facility] Address [address] [place] [phone]- Care Team Providers Name Role Phone Nagi AL, Jolynn Jain Primary Care Physician [place] [facility] [place] [id number] Date(s): 06/14/20 - 07/14/20 [facility] [address] [place] [id number] Attending Physician: Millie Gabriel Admitting Physician: Admtr, Millie Referring Physician: Admtr, Ar8 Allergies, Adverse Reactions, [...]
--- OUTSIDE RECORDS SUMMARY | 2022-07-14 16:26 | XMS_ITS | Continuity of Care Document ---
:1970 Author Organization [facility] Address [address] [place] [address]- Care Team Providers Name Role Phone Nagi AL, Jolynn Jain Primary Care Physician Encounter [facility] [place] Date(s): 09/13/20 - 10/16/20 [facility] [address] [place] [id number] Attending Physician: Henry Lee MD Admitting Physician: Henry Lee MD Allergies, Adverse Reactions, Alerts Substance Reaction Severity [...]
--- OUTSIDE RECORDS SUMMARY | 2022-07-14 16:26 | XMS_ITS | Continuity of Care Document ---
:1970 Author Organization [facility] Address [address] [place] [phone]- Care Team Providers Name Role Phone Nagi AL, Jolynn Jain Primary Care Physician [place] [facility] [place](s): 05/05/22 - 06/04/22 [facility] [address] [place] [id number] Referring Physician: Carri Mock Allergies, Adverse Reactions, Alerts Substance Reaction Severity Status doxycycline ANAPHYLAXIS Active sulfonamides Active Bactrim VERY SICK Active Medications calcium-vitamin [...] EDT, Tablet Start Date: 09/12/18 Status: OrderedHumalog Kwik Pen 100 units/mL subcutaneous injection See Instructions, USE DIRECTED FOR DIABETES MELLITUS TYPE 2 three times a day before meals MAX CVJD=273 UNITS/DAY Please follow the below sliding scale: Blood sugar Humalog dose 100-149 take 20 units 150-199 take 23 units 200... Start Date: 08/26/21 Status: OrderedJanuvia 100 mg oral tablet = 100 mg, By Mouth, Daily, # 30 tablet, 0 Refills, Maintenance, 10/21/18 10:37:56 EDT, Tablet Start Date: 10/21/18 Status: OrderedJardiance 10 mg oral tablet 1 tablet = 10 mg, By Mouth, Daily in AM, # 30 tablet, 0 Refills, Maintenance, 01/05/21 11:00:00 EDT,Tablet, [facility]/pharmacy #[id number], Partial fill upon patient request if the [...] 11:08:45 EDT, Tablet Start Date: 10/30/18 Status: Orderedlorazepam 1 mg oral tablet 1 tablet = 1 mg, By Mouth, 2 times a day, PRN as needed for anxiety, # 10 tablet, 0 Refills, Maintenance Start Date: 08/25/12 Stop Date: 08/30/12 Status: OrderedLosartan = 25 mg, By Mouth, Daily, 0 Refills, Maintenance, 09/12/18 16:00:17 EDT Start Date: 09/12/18 Status: OrderedPen [place], 32 G x 4 mm BD Ultra [...] EDT, Aerosol Start Date: 10/29/18 Status: OrderedTresiba FlexTouch 200 units/mL subcutaneous solution = 80 units, Subcutaneous Injection, Daily, rotate injection sites, # 18 mL, 5 Refills, Maintenance, 05/05/22 12:00:00 EST, Solution, [facility]/pharmacy #[id number], Partial fill upon patient request if the prescription is for a schedule II opioid drug. Start Date: 05/05/22 Stop Date: 11/01/22 Status: OrderedTylenol 325 mg oral tablet 650 mg, By Mouth, Every 4 hours, PRN, Refills 0, Maintenance, Pain , Moderate, 10/30/18 11:16:42 EDT Start Date: 10/30/18 Status: Ordered Social History Social History Type Response Smoking Status Current every day smoker entered on: 02/10/15 Sex Patient Care team information Care Team PersonnelName: Nagi AL, Jolynn Jain Position: Reference Physician Member Role: PCP Address: Address: [address] [place] [id number] [place] [address] Name: Chelsy Lynn RN Position: S RN Member Role: Primary Care Nurse Care Team Related PersonsName: LASHELL AYALA Address: home [address] [place] [id number] Name: KATHY JUNE Address: home [address] [place] [id number]
--- OUTSIDE RECORDS SUMMARY | 2022-07-14 16:26 | XMS_ITS | Continuity of Care Document ---
:1970 Author Organization [facility] Address [address] [place] [address]- Care Team Providers Name Role Phone Nagi AL, Jolynn Jain Primary Care Physician Encounter [facility] [place] Date(s): 04/19/21 - 05/19/21 [facility] Endocr[facility]ology and Diabetes [address] [place] [id number] Allergies, Adverse Reactions, Alerts Substance Reaction Severity [...] directed for Diabetes mellitus type 2. (Max Jtku=936xwyvn/day) Dx 11.9, # 3 each, 5 Refills, Maintenance, 01/05/21 10:57:00 EDT, [facility]/pharmacy #[id number], Partial fill upon patient request if the [...] tablet, 0 Refills, Maintenance, 01/05/21 11:00:00 EDT,Tablet, [facility]/pharmacy #[id number], Partial fill upon patient request if the [...] 16:00:17 EDT Start Date: 09/12/18 Status: OrderedPen [place], 32 G x 4 mm BD Ultra [...] 6 Refills, Maintenance, 04/19/21 17:10:00 EST, Solution, [facility]/pharmacy #[id number], Partial fill upon patient request if [...]
--- OUTSIDE RECORDS SUMMARY | 2022-07-14 16:26 | XMS_ITS | Continuity of Care Document ---
:1970 Author Organization [facility] Address [address] [place] [address]- Care Team Providers Name Role Phone Nagi AL, Jolynn Jain Primary Care Physician [facility] [place] Date(s): 02/14/21 - 03/16/21 [facility] Diabetes [address] [place] [id number] Allergies, Adverse Reactions, Alerts Substance Reaction [...] directed for Diabetes mellitus type 2. (Max Atbc=574ezkez/day) Dx 11.9, # 3 each, 5 Refills, Maintenance, 01/05/21 10:57:00 EDT, [facility]/pharmacy #[id number], Partial fill upon patient request if the [...] tablet, 0 Refills, Maintenance, 01/05/21 11:00:00 EDT,Tablet, [facility]/pharmacy #[id number], Partial fill upon patient request if the [...] 16:00:17 EDT Start Date: 09/12/18 Status: OrderedPen [place], 32 G x 4 mm BD Ultra [...] mL, 6 Refills, Maintenance, 01/05/21 10:57:00 EDT, [facility]/pharmacy #[id number], Partial fill upon patient request if the [...]
--- OUTSIDE RECORDS SUMMARY | 2022-07-14 16:26 | XMS_ITS | Continuity of Care Document ---
:1970 Author Organization [facility] Address Unavailable , Care Team Providers Name Role Phone Nagi AL, Jolynn Jain Primary Care Physician Encounter [facility] [place] Date(s): 10/03/21 - 11/02/21 [facility] Allergies, Adverse Reactions, Alerts Substance Reaction Severity [...] three times a day before meals MAX VJBN=154 UNITS/DAY Please follow the below sliding scale: [...] tablet, 0 Refills, Maintenance, 01/05/21 11:00:00 EDT,Tablet, [facility]/pharmacy #[id number], Partial fill upon patient request if the [...] 16:00:17 EDT Start Date: 09/12/18 Status: OrderedPen [place], 32 G x 4 mm BD Ultra [...] 6 Refills, Maintenance, 04/19/21 17:10:00 EST, Solution, [facility]/pharmacy #[id number], Partial fill upon patient request if the [...]
--- OUTSIDE RECORDS SUMMARY | 2022-07-14 16:26 | XMS_ITS | Continuity of Care Document ---
:1970 Author Organization [address] [place] [address]- Care Team Providers Name Role Phone Nagi AL, Jolynn Jain Primary Care Physician [place] [facility] [place] 10/01/20 - 10/31/[address] [place] [address]- Allergies, Adverse Reactions, Alerts Substance Reaction Severity [...]
--- OUTSIDE RECORDS SUMMARY | 2022-07-14 16:27 | XMS_ITS | Continuity of Care Document ---
:1970 Author Organization [facility]ocrinology [facility] Address [address] [place] [address]- Care Team Providers Name Role Phone Nagi AL, Jolynn Jain Primary Care Physician Encounter [facility] [place] Date(s): 04/19/21 - 05/19/21 [facility] Endocrinology and Diabetes [address] [place] [id number] Attending Physician: Millie Gabriel Admitting Physician: AdmtrMillie Referring Physician: Admtr, Ar8 Allergies, Adverse Reactions, [...] directed for Diabetes mellitus type 2. (Max Lnad=264pcirf/day) Dx 11.9, # 3 each, 5 Refills, Maintenance, 01/05/21 10:57:00 EDT, [facility]/pharmacy #[id number], Partial fill upon patient request if the [...] 0 Refills, Maintenance, 01/05/21 11:00:00 EDT,Tablet, [facility]/pharmacy #[id number], Partial fill upon patient request if the [...] 16:00:17 EDT Start Date: 09/12/18 Status: OrderedPen [place], 32 G x 4 mm BD Ultra [...] Refills, Maintenance, 04/19/21 17:10:00 EST, Solution, [facility]/pharmacy #[id number], Partial fill upon patient request if [...]
--- OUTSIDE RECORDS SUMMARY | 2022-07-14 16:27 | XMS_ITS | Continuity of Care Document ---
:1970 Author Organization [facility] Address [address] [place] [id number]- Care Team Providers Name Role Phone Nagi AL, Jolynn Jain Primary Care Physician Encounter [facility] [place] Date(s): 06/02/21 - 07/02/[address] [phone]- Attending Physician: Millie Gabriel Admitting Physician: AdmtrMillie Referring Physician: Admtr, ArMelanie Allergies, Adverse Reactions, Alerts Substance Reaction Severity [...] directed for Diabetes mellitus type 2. (Max Pvjo=949bopww/day) Dx 11.9, # 3 each, 5 Refills, Maintenance, 01/05/21 10:57:00 EDT, [facility]/pharmacy #[id number], Partial fill upon patient request if the [...] tablet, 0 Refills, Maintenance, 01/05/21 11:00:00 EDT,Tablet, [facility]/pharmacy #[id number], Partial fill upon patient request if the [...] 16:00:17 EDT Start Date: 09/12/18 Status: OrderedPen [place], 32 G x 4 mm BD Ultra [...] 6 Refills, Maintenance, 04/19/21 17:10:00 EST, Solution, [facility]/pharmacy #[id number], Partial fill upon patient request [...]
--- OUTSIDE RECORDS SUMMARY | 2022-07-14 16:27 | XMS_ITS | Continuity of Care Document ---
:1970 Author Organization [facility] Address [address] [place] [address]- Care Team Providers Name Role Phone Nagi AL, Jolynn Jain Primary Care Physician Encounter [facility] [place] Date(s): 04/20/21 - 07/02/[address] [address] Attending Physician: Henry Lee MD Admitting Physician: Henry Lee MD Referring Physician: Jolynn Lazar NP Allergies, [...] directed for Diabetes mellitus type 2. (Max Dumf=274hllcf/day) Dx 11.9, # 3 each, 5 Refills, Maintenance, 01/05/21 10:57:00 EDT, [facility]/pharmacy #[id number], Partial fill upon patient request [...] tablet, 0 Refills, Maintenance, 01/05/21 11:00:00 EDT,Tablet, [facility]/pharmacy #[id number], Partial fill upon patient request if the [...] 16:00:17 EDT Start Date: 09/12/18 Status: OrderedPen [place], 32 G x 4 mm BD Ultra [...] 6 Refills, Maintenance, 04/19/21 17:10:00 EST, Solution, [facility]/pharmacy #[id number], Partial fill upon patient request [...]
[2022-07-14 16:28] LABS: MANUAL DIFF FLAG NO
[2022-07-14 16:32] LABS: Appearance Urine Clear; Basophils Absolute Auto 0.1 X10*3/uL (0.0-0.2); Basophils Percent Auto 0.9 % (0-2); Color Urine Yellow; Eosinophils Absolute Auto 0.3 X10*3/uL (0.0-0.4); Eosinophils Percent Auto 2.9 % (0-4); Glucose Urine UA >=1000 mg/dL (Negative); Hematocrit 45.1 % (37.0-47.0); Hemoglobin 15.8 g/dl (12.0-16.0); Imm Gran Abs Auto 0.02 X10*3/uL (0.00-0.03); Imm Gran Pct Auto 0.2 % (0.0-0.4); Leukocyte Esterase Urine Small (1+) (Negative); Lymphocytes Absolute Auto 2.8 X10*3/uL (1.2-4.9); Lymphocytes Percent Auto 32.3 % (20-40); Mean Corpuscular Hemoglobin 29.8 pg (27.0-33.0); Mean Corpuscular Volume 85.1 fL (80.0-98.0); Mean Platelet Volume 11.3 fL (9.4-12.3); Monocytes Absolute Auto 0.5 X10*3/uL (0.1-1.2); Neutrophils Percent Auto 57.7 % (45-73); Nitrite Urine Negative (Negative); Platelet Count 230 X10*3/uL (160-400); Red Cell Distribution Width 12.5 % (11.0-16.0); Specific Gravity - Urine >= 1.030 (1.005-1.025); UMIC TRIGGER UACC YES; Urine Blood Trace (Negative); Urine Ketones Negative (Negative); Urine Protein Negative (Neg-Trace); White Blood Count 8.7 X10*3/uL (4.8-10.8)
[2022-07-14 16:38] LABS: INTERNATIONAL NORM RATIO 1.1 (0.9-1.1); Prothrombin Time 13.2 SEC (10.0-13.1)
[2022-07-14 16:50] LABS: Bacteria Urine 1+ (None Seen); Hyaline Casts Urine 0-2 /LPF (0-2); UACC Culture Trigger YES
[2022-07-14 17:08] LABS: Alanine Aminotransferase 11 U/L (0-31); Albumin Level 3.4 g/dL (3.5-5.0); Alkaline Phosphatase 111 U/L (39-117); Anion Gap 12 (12-20); Aspartate Amino Transferase 22 U/L (5-31); Bilirubin Total 0.5 mg/dL (0.0-1.0); Blood Urea Nitrogen 11 mg/dL (9-16); C Reactive Protein 1.28 mg/dL (< or = 0.50); Carbon Dioxide 28 mmol/L (22-29); Chloride 99 mmol/L (96-108); Creatinine Clr Calc Pharmacy 95.3; Estimated Glomerular Filt Rate > 60; Glucose Random 629 mg/dL (60-115); Magnesium 1.7 mg/dL (1.6-2.6); Potassium 5.1 mmol/L (3.3-5.1); Sodium 134 mmol/L (135-145); Total Protein 6.7 g/dL (6.5-8.0)
[2022-07-14 17:11] LABS: Influenza A PCR NEGATIVE (Negative); Influenza B PCR NEGATIVE (Negative); Resp Syncy Virus RNA Qual PCR NEGATIVE (Negative); SARS COV2 PCR INHOUSE NEGATIVE (Negative)
[2022-07-14 17:16] LABS: TSH reflex Free T4 0.04 uIU/mL (0.32-4.0)
[2022-07-14 17:18] LABS: Erythrocyte Sedimentation Rate 16 MM/HR (0-20)
[2022-07-14 17:32] LABS: Acetone, serum QL Negative (Negative)
[2022-07-14 17:56] LABS: Free T4 (Free Thyroxine) 1.42 ng/dL (0.71-1.85)
[2022-07-14] MEDS: Insulin Regular, Human 100 UNIT/ML 3 ML VIAL 10 UNIT IVPUSH (18:49)
[2022-07-14] MEDS: levoFLOXacin 500 MG TABLET PO (18:49)
[2022-07-14] MEDS: 0.9 % Sodium Chloride 2,000 ML 999 ML IVCONT (18:49)
--- NOTE | 2022-07-14 19:21 | PC.NURSE ---
per day shift RN iv line infiltrated and patient did not receive normal saline bolus but did receive 10 units insulin regular. patient does not want another iv line placed. will alert provider
--- NOTE | 2022-07-14 20:08 | PC.NURSE ---
patient states she is leaving AMA - patient informed that the ED is very busy and the provider will be in with her as soon as she can, but patient yelling in hallway saying i'm leaving i will just go to my primary care doctor office patient ambulatory with steady gait out of treatment room, in no apparent distress. provider aware patient is leaving, visualizes patient ambulating to waiting room.
== END 2022-07-14 20:16 | disposition left against medical advice (07) ==
PROVIDERS: Physician Assistant Medical; Emergency Provider Emergency Medicine; PCP Nurse Practitioner Family
DX: M79.606 Pain in leg, unspecified (principal); M79.10 Myalgia, unspecified site; R11.2 Nausea with vomiting, unspecified; R53.83 Other fatigue; N39.0 Urinary tract infection, site not specified; E11.65 Type 2 diabetes mellitus with hyperglycemia; R07.89 Other chest pain; F17.210 Nicotine dependence, cigarettes, uncomplicated; Z20.822 Contact with and (suspected) exposure to COVID-19; Z20.828 Contact with and (suspected) exposure to other viral communicable diseases; Z71.6 Tobacco abuse counseling; Z79.4 Long term (current) use of insulin; Z79.899 Other long term (current) drug therapy
CPT/HCPCS: 0241U; 36415; 80053; 81001; 82009; 82550; 83735; 84439; 84443; 85025; 85610; 85652; 86140; 87086; 87147; 93005; 96374; 99284

== ENCOUNTER 2022-09-05 11:00 | Outpatient (RCR) | payer OTHER, SELFPAY ==
--- NOTE | 2022-07-20 12:29 | MHC.PT.EP ---
[facility] [place] Office [place] Office [place] Office [address] Venkata Jones [address] [phone] F: [phone] F: [phone] F: [phone] F: [phone] Physical Therapy Plan of Care Date of Evaluation: Date of Surgery: Diagnosis: This is a 51 yo female presenting to skilled PT with script for BLE weakness Assessment: This is a 51 yo female presenting to skilled PT with script for BLE weakness. Patient reports a long history of back pain (sciatic pain, ongoing forever ) but reports that this pain is different and has been constant for 6 months now. She reports that she has pain that runs from her thighs (anteriorly), into lower legs/gastrocs (anteriorly and posteriorly), and runs laterally into the feet. Her left leg is worse than the R. She has numbness, tingling, decreased strength and pain throughout the LEs. She also reports decreased balance and has fallen twice. Patient reporting that her pain limits her with working, sitting, driving, walking, and sleeping at night. She is very sensitive to touch and does not want to be touched (examples include unable to wear sneakers or use razor to shave legs). Assessment reveals pain that ranges from a 5/10 to 10/10 and is constant. She demos decreased hip/LE and lumbar ROM with LLE decreased compared to the R. Patient has decreased BLE strength again with LLE worse than the R. Poor core strength and functional tolerance for rolling, sitting, standing and walking. The patient demos increased sensitivity to touch, self reported decreased balance and poor endurance. She is a good candidate for skilled PT 2x/wk for 6wks. She may also benefit from a pain management referral, imaging of low back and neurology referral. Frequency and Duration: The patient will be seen 2x/wk for 4wks Short Term Goals: I in HEP Demo equal BLE ROM Improve tolerance for strengthening exercises as evidenced by increasing resistance and sets/reps Test balance with DGI Yeast Tender Goals: Tolerate ambulation on tredmill for 20 mins Demo WNL BLE strength Self report 50% improvement in strength, balance and endurance Treatment Plan: Modalities to reduce pain, spasms and effusion. Manual therapy to restore motion and function. Therapeutic exercise to improve strength and flexibility. Neuromuscular re-education for posture and balance. Therapeutic activities to return to functional activities of daily living. Electronically signed by: Nanda Guillermo PT Please sign and return to therapist. Thank you for your referral.
--- NOTE | 2022-09-13 13:35 | MHC.PT.DC ---
[facility] [place] Office [place] Office [place] Office [address] Venkata Jones [address] [phone] F: [phone] F: [phone] F: [phone] F: [phone] Physical Therapy Discharge Report Diagnosis: This is a 51 yo female presenting to skilled PT with script for BLE weakness Date of Surgery: Date of Evaluation: 07/20/22 Date of Discharge: 09/13/22 Treatments to Date: 8 Cancellations to Date: 0 No Shows to Date: 0 Discharge Status: Visit Non-compliance Discharge Summary: Patient with poor compliance with attendance and was DC'd per attendance policy. Electronically signed by: Nanda Guillermo PT Please sign and return to therapist. Thank you for your referral.
== END 2022-09-13 13:32 | disposition home or self-care (01) ==
LOC: HO.PTCHIC 11:00
PROVIDERS: PCP Nurse Practitioner Family; Visit Provider Nurse Practitioner Family
DX: R53.1 Weakness (principal); R29.898 Other symptoms and signs involving the musculoskeletal system
CPT/HCPCS: 97110; 97150; 97162

== ENCOUNTER 2022-09-08 17:31 | Emergency (ER) | payer OTHER, SELFPAY ==
--- NOTE | ~2022-09-08 | XR_ITS ---
EXAMINATION: XR HIP, LEFT CLINICAL INFORMATION: Back pain. Hip pain. COMPARISON: None available. TECHNIQUE: Frontal view of pelvis Two views of the left hip. FINDINGS: Bones and soft tissues are normal. No fracture. Alignment is anatomic. Hip joint space is maintained. XR/XR hip LT w PEL1V IMPRESSION: Normal left hip.
--- NOTE | ~2022-09-08 | XR_ITS ---
EXAMINATION: XR LUMBOSACRAL SPINE CLINICAL INFORMATION: Pain COMPARISON: None available. TECHNIQUE: Three views of the lumbosacral spine. FINDINGS: The lumbar spine maintains normal alignment. There are chronic mild compression deformities of the lower thoracic vertebral bodies. The lumbar vertebral bodies maintain normal height. There is multilevel degenerative disc disease with endplate degenerative changes, most predominantly at L5-S1. Facet arthropathy lower lumbar spine. XR/XR lumbar spine 2-3V IMPRESSION: Mild degenerative disease of the lumbar spine.
--- NOTE | 2022-09-08 17:43 | ED_ITS ---
HPI - General Adult General Chief complaint: Back Pain/Injury <KERRY Mcwilliams - Last Filed: 09/08/22 17:44> Stated complaint: L hip/ back pain. radiating pain <KERRY Mcwilliams - Last Filed: 09/08/22 17:44> Time Seen by Provider: 09/08/22 18:39 <KERRY Mcwilliams - Last Filed: 09/08/22 17:44> Source: patient and RN notes reviewed <Tmioteo Saucedo - Last Filed: 09/08/22 21:27> Mode of arrival: ambulatory <Timoteo Saucedo - Last Filed: 09/08/22 21:27> Limitations: no limitations <Timoteo Saucedo - Last Filed: 09/08/22 21:27> History of Present Illness HPI narrative: 51-year-old female presents for evaluation of left lower back pain. Patient reports that she has had pain for last 3 weeks. The pain radiates into her left hip as well as her left lower abdomen. She complains of nausea and vomiting earlier today. Denies any diarrhea or constipation. Denies any fevers or chills. She saw her PCP and her physical therapist for this. She has been taking meloxicam and a muscle relaxer without any improvement in her symptoms Denies any numbness or tingling. The patient does have chronic bilateral lower extremity weakness which is un changed from baseline She rates her pain as intermittent, 9/10 and worse with movement <Timotoe Saucedo - Last Filed: 09/08/22 21:27> Related Data Home medications: Home Medications Medication Instructions Recorded Confirmed buspirone 7.5 mg tablet 15 mg PO BID 07/26/22 08/23/22 escitalopram oxalate 20 mg tablet 10 mg PO DAILY 07/26/22 08/23/22 Previous Rx's Medication Instructions Recorded fluticasone propionate 110 1 puff inhalation Q12H #12 grams 05/12/21 mcg/actuation HFA aerosol inhaler (Flovent HFA) albuterol sulfate 90 mcg/actuation 2 inh inhalation Q8H PRN shortness 07/20/21 aerosol inhaler of breath or wheezing 30 days #8.5 grams losartan 50 mg tablet 50 mg PO DAILY #90 tabs 10/13/21 flash glucose scanning reader #1 ea 01/05/22 (FreeStyle [place]don 2 [place]) flash glucose sensor (FreeStyle #1 ea 01/11/22 Abdon 2 Sensor kit) ergocalciferol (vitamin D2) 1,250 1,250 mcg PO QWEEK 90 days #13 caps 01/15/22 mcg (50,000 unit) capsule diabetic shoes #1 ea 03/07/22 levothyroxine 200 mcg tablet 200 mcg PO DAILY #90 tabs 03/09/22 ipratropium 0.5 mg-albuterol 3 mg 3 ml inhalation Q6-8H PRN wheezing 03/28/22 (2.5 mg base)/3 mL nebulization #90 mL soln albuterol sulfate 90 mcg/actuation 2 puff inhalation Q4-6H PRN 04/29/22 aerosol inhaler (Proventil HFA) wheezing #8.5 grams inhalational spacing device #1 ea 04/29/22 (Aerochamber Plus Z Stat spacer) insulin lispro 100 unit/mL 20 unit (0.2 mL) subcut TID #15 mL 05/04/22 subcutaneous pen (Humalog KwikPen (U-100) Insulin) cyanocobalamin (vitamin B-12) 1,000 mcg PO DAILY 90 days #90 tabs 06/17/22 1,000 mcg tablet omeprazole 20 mg capsule,delayed 20 mg PO DAILY 90 days #90 caps 06/17/22 release atorvastatin 40 mg tablet 40 mg PO DAILY 90 days #90 tabs 07/21/22 fluticasone propionate 100 1 inh PO BID #60 ea 07/21/22 mcg/actuation blister powder for inhalation (Flovent Diskus) fluticasone propionate 50 1 spray intranasal BID #16 grams 07/21/22 mcg/actuation nasal spray,suspension gabapentin 800 mg tablet 800 mg PO TID #84 tabs 07/24/22 alpha lipoic acid 600 mg capsule 600 mg PO DAILY 30 days #30 caps 07/26/22 insulin degludec 200 unit/mL (3 95 unit (0.475 mL) subcut BEDTIME 08/10/22 mL) subcutaneous pen (Tresiba 30 days #14.25 mL FlexTouch U-200 insulin) blood sugar diagnostic (FreeStyle 1 strip miscellaneous QID diabetes 08/14/22 Lite Strips) 30 days #100 strips meloxicam 15 mg tablet 15 mg PO DAILY #14 tabs 08/23/22 tramadol 50 mg tablet 50 mg PO TID PRN severe pain 09/08/22 (scale score 7-10) #15 tabs <KERRY Mcwilliams - Last Filed: 09/08/22 17:44> Allergies/adverse reactions: Allergies Allergy/AdvReac Type Severity Reaction Status Date / Time doxycycline [DOXYCYCLINE] Allergy Severe THROAT Verified 08/23/22 13:27 SWELLING clindamycin [CLINDAMYCIN] Allergy Intermediate CHEST PAIN Verified 08/23/22 13:27 Sulfa (Sulfonamide Allergy Unknown makes her Verified 08/23/22 13:27 Antibiotics) sick, vomit trimethoprim [From BACTRIM] Allergy Unknown NAUSEA & Verified 08/23/22 13:27 VOMITING sulfamethoxazole AdvReac Mild NAUSEA & Verified 08/23/22 13:27 [From BACTRIM] VOMITING lisinopril Allergy Unknown headaches Uncoded 08/23/22 13:27 <KERRY Mcwilliams - Last Filed: 09/08/22 17:44> Review of Systems Constitutional: Constitutional: Reports as per HPI, Denies chills, Denies fatigue, Denies fever(s) and Denies headache(s) <Timoteo Saucedo - Last Filed: 09/08/22 21:27> ENT: Denies headache(s) <Timoteo Saucedo - Last Filed: 09/08/22 21:27> Cardiovascular: Cardiovascular: Denies chest pain and Denies dyspnea <Timoteo Saucedo - Last Filed: 09/08/22 21:27> Respiratory: Respiratory: Denies cough and Denies dyspnea <Timoteo Saucedo - Last Filed: 09/08/22 21:27> Gastrointestinal: Gastrointestinal: Reports abdominal pain, Denies constipation, Denies loose stools, Reports nausea and Reports vomiting <Timoteo Saucedo - Last Filed: 09/08/22 21:27> Genitourinary: Genitourinary: Denies dysuria <Timoteo Saucedo - Last Filed: 09/08/22 21:27> Musculoskeletal: Musculoskeletal: Reports back pain <Timoteo Saucedo - Last Filed: 09/08/22 21:27> Neurologic: Denies headache(s) and Denies focal weakness <Timoteo Saucedo - Last Filed: 09/08/22 21:27> Endocrine: Endocrine: Denies fatigue <Timoteo Saucedo - Last Filed: 09/08/22 21:27> [facility] Past Medical History Medical History: Medical History Anxiety B12 deficiency Cellulitis of buttock Depression Diabetes Hyperlipidemia Migraines Morbid obesity Sciatic leg pain Uncontrolled diabetes mellitus <KERRY Mcwilliams - Last Filed: 09/08/22 17:44> Surgical History: Surgical History H/O elbow surgery H/O thyroidectomy Hx of tubal ligation <KERRY Mcwilliams - Last Filed: 09/08/22 17:44> Family History Family History: Family History Father HTN (hypertension) CVD (cardiovascular disease) Diabetes mellitus Mental health disorder Mother Diabetes mellitus Uterine cancer COPD (chronic obstructive pulmonary disease) Mental health disorder Maternal Grandmother Breast cancer Paternal Aunt Breast cancer Brother No problems noted. Sister Substance use disorder Mental health disorder Sister No problems noted. Sister No problems noted. Daughter No problems noted. Son No problems noted. Son No problems noted. Son No problems noted. Son No problems noted. Son No problems noted. Son No problems noted. <KERRY Mcwilliams - Last Filed: 09/08/22 17:44> Social History Social History: Social History Household Members: Family Housing: Apartment Do you presently have visiting nurse or other home services: No Alcohol intake: never Patient Tobacco Use Status: Current everyday Tobacco user Tobacco use type: Cigarette Cigarette Packs Per Day: 1 Years Smoked: 20 e-Cigarette/Vaping Use: Currently Using Second Hand Smoke Exposure: No Advance Directives: No Advance Directives Information Provided: No service: No Current occupational status: employed Current occupation: [employer] <KERRY Mcwilliams - Last Filed: 09/08/22 17:44> Physical Exam ED Vital Signs: Vital Signs - 24 hr 09/08/22 17:44 Temperature 97.5 F Pulse Rate 102 H Respiratory Rate 16 Blood Pressure 163/98 H Pulse Oximetry 98 Oxygen Delivery Method Room Air BMI result Body Mass Index 41.4 <KERRY Mcwilliams - Last Filed: 09/08/22 17:44> Vital Signs - 24 hr 09/08/22 17:44 Temperature 97.5 F Pulse Rate 102 H Respiratory Rate 16 Blood Pressure 163/98 H Pulse Oximetry 98 Oxygen Delivery Method Room Air BMI result Body Mass Index 41.4 <[place]oteo [place] - Last Filed: 09/08/22 21:27> Const General: healthy appearing, comfortable, no acute distress, alert and awake <Timoteo - Last Filed: 09/08/22 21:27> Nutritional Appearance: well nourished <Timoteo Last Filed: 09/08/22 21:27> Orientation/consciousness: patient oriented x3 <Timoteo - Last Filed: 09/08/22 21:27> HENMT Head: Yes normocephalic and Yes atraumatic < - Last Filed: 09/08/22 21:27> Throat: Yes posterior oropharynx normal <Timoteo Last Filed: 09/08/22 21:27> Eyes Eyelids: Yes eyelids normal <Timoteo Last Filed: 09/08/22 21:27> Conjunctivae: conjunctivae normal <Timoteo - Last Filed: 09/08/22 21:27> Sclerae: sclerae normal < Last Filed: 09/08/22 21:27> Corneas: corneas normal <Timoteo Last Filed: 09/08/22 21:27> Pupils: Equal, round and reactive pupils present < Last Filed: 09/08/22 21:27> EOM: EOMs intact bilaterally <Timoteo Last Filed: 09/08/22 21:27> Neck Neck: Yes full ROM <Timoteo O Last Filed: 09/08/22 21:27> Resp Effort & Inspection: normal respiratory effort, able to speak in complete sentences, no audible wheezes and not labored <Timoteo O Last Filed: 09/08/22 21:27> Auscultation: clear to auscultation bilaterally < Last Filed: 09/08/22 21:27> Cardio Rate: regular rate < Last Filed: 09/08/22 21:27> Rhythm: regular rhythm < Last Filed: 09/08/22:27> GI Inspection: No distended and Yes obesity < Last Filed: 09/08/22 21:27> Palpation (GI): Soft to palpation, not firm, Tenderness to palpation present (GI) in the LLQ (Without guarding), no guarding and not rigid < Last Filed: 09/08/22 21:27> Auscultation: normoactive bowel sounds < Last Filed: 09/08/22 21:27> Back/Spine/Pelvis Other: Tenderness in the left lumbar paraspinous region. Negative straight leg raise < Last Filed: 09/08/22 21:27> Skin General skin exam: no rashes or lesions noted and elasticity normal < Last Filed: 09/08/22 21:27> Neuro General: patient oriented x3 < Last Filed: 09/08/22 21:27> Cranial nerves: Yes CN's II-XII intact bilaterally, Yes Equal, round and reactive pupils present and Yes Bilaterally intact EOM present < Last Filed: 09/08/22 21:27> Cognition (Neuro): normal cognition < Last Filed: 09/08/22 21:27> Extrem Other: Moving all extremities well without any obvious deformities < Last Filed: 09/08/22 21:27> Course Course Course Narrative: RME performed by Camila Slaughter PA-C. Patient is a 51 year old assigned female at presenting to the emergency department with left hip and back pain. Imaging ordered. Patient placed back in the waiting room pending room availability and results. <KERRY Mcwilliams - Last Filed: 09/08/22 17:44> Reevaluation(s) Reevaluation #1: Patient's pain improved with Toradol. Her urine sample did show a small amount of blood as well as protein in her urine. I discussed possibly follow this up with a renal ultrasound or a CT scan the abdomen pelvis. The patient declines at this time as her pain is improved and she will follow-up with her primary doctor <Timoteo Saucedo - Last Filed: 09/08/22 21:27> Time: : <Timoteo Saucedo - Last Filed: 09/08/22 21:27> Medications Administered Discontinued Medications Generic Name Dose Route Start Last Admin Trade Name Freq PRN Reason Stop Dose Admin Ketorolac Tromethamine 30 mg 09/08/22 20:44 09/08/22 20:56 Ketorolac Tromethamine 30 Mg/Ml Vial IM 09/08/22 20:45 30 mg ONCE ONE Administration <KERRY Mcwilliams - Last Filed: 09/08/22 17:44> Medications Administered Discontinued Medications Generic Name Dose Route Start Last Admin Trade Name Freq PRN Reason Stop Dose Admin Ketorolac Tromethamine 30 mg 09/08/22 20:44 09/08/22 20:56 Ketorolac Tromethamine 30 Mg/Ml Vial IM 09/08/22 20:45 30 mg ONCE ONE Administration <Timoteo Saucedo - Last Filed: 09/08/22 21:27> Medical Decision Making Medical Decision Making MDM Narrative: 51-year-old male presents for evaluation of left lower back pain that radiates to her left abdomen and down her leg. Most likely radiculopathy. No warning signs to rule out cauda equina syndrome. Given the patient complains of abdominal pain with nausea and vomiting will check labs as well as a UA. Consider further imaging as indicated. X-ray of the L-spine and left hip x-ray are consistent with osteoarthritis of the L-spine only. <Timoteo Saucedo - Last Filed: 09/08/22 21:27> Differential Diagnosis Muscle strain Radiculopathy Back pain Abdominal pain Obstructive uropathy Pyelonephritis Constipation Sciatica <Timoteo Saucedo - Last Filed: 09/08/22 21:27> Lab Data [facility] Lab Attestation statement: I reviewed the patient's lab results. <Timoteo DelacruzBoby - Last Filed: 09/08/22 21:27> Elevated hemoglobin hematocrit which is likely due to hypovolemia. Glucose of 325 also likely due to hypovolemia. The CO2 of 33 which may be related to obesity hypoventilation syndrome or obstructive sleep apnea. No other significant findings <Timoteo Saucedo - Last Filed: 09/08/22 21:27> Result Diagrams: 09/08/22 19:03 09/08/22 19:03 <KERRY Mcwilliams - Last Filed: 09/08/22 17:44> Labs: Lab Results 09/08/22 09/08/22 09/08/22 Range/Units 19:03 19:03 19:03 WBC 9.3 (4.8-10.8) X10*3/uL RBC 5.68 H (4.20-5.50) X10*6/uL Hgb 16.8 H (12.0-16.0) g/dl Hct 48.9 H (37.0-47.0) % MCV 86.1 (80.0-98.0) fL MCH 29.6 (27.0-33.0) pg MCHC 34.4 (31.0-35.0) g/dl RDW 12.7 (11.0-16.0) % Plt Count 231 (160-400) X10*3/uL MPV 10.4 (9.4-12.3) fL Immature Gran % (Auto) 0.2 (0.0-0.4) % Neut % (Auto) 63.3 (45-73) % Lymph % (Auto) 27.7 (20-40) % [place] % (Auto) 5.7 (2-11) % Eos % (Auto) 2.3 (0-4) % Baso % (Auto) 0.8 (0-2) % Lymph # (Auto) 2.6 (1.2-4.9) X10*3/uL [place] # (Auto) 0.5 (0.1-1.2) X10*3/uL Eos # (Auto) 0.2 (0.0-0.4) X10*3/uL Baso # (Auto) 0.1 (0.0-0.2) X10*3/uL Abs Immat Gran (auto) 0.02 (0.00-0.03) X10*3/uL Absolute Neuts (auto) 5.9 (2.0-8.3) x10*3/uL Absolute Nucleated RBC 0.000 (0.0-0.012) X10*3/uL Nucleated RBC % (auto) 0.0 (0.0-0.2) /100WBC Sodium 137 (135-145) mmol/L Potassium 4.3 (3.3-5.1) mmol/L Chloride 99 (96-108) mmol/L Carbon Dioxide 33 H (22-29) mmol/L Anion Gap 9 L (12-20) BUN 14 (9-16) mg/dL Creatinine 0.77 (0.5-1.4) mg/dL Estim Creat Clear Calc 107.0 Estimated GFR > 60 Random Glucose 325 H (60-115) mg/dL Calcium 8.9 (8.4-10.2) mg/dL Urine Color Dark Yellow Urine Appearance Clear Urine pH 5.5 (5.0-9.0) Ur Specific [place] >= 1.030 H (1.005-1.025) Urine Protein 100 (2+) H (Neg-Trace) mg/dL Urine Glucose (UA) >=1000 H (Negative) mg/dL Urine Ketones Negative (Negative) mg/dL Urine Blood Small (1+) H (Negative) Urine Nitrite Negative (Negative) Ur Leukocyte Esterase Small (1+) H (Negative) Urine RBC 11-20 H (0-2) /HPF Urine WBC 0-5 (0-5) /HPF Ur Squamous Epith Cells 6-10 (0-2) /HPF Urine Bacteria Trace (None Seen) Hyaline Casts 0-2 (0-2) /LPF <KERRY Mcwilliams - Last Filed: 09/08/22 17:44> Lab Results 09/08/22 09/08/22 09/08/22 Range/Units 19:03 19:03 19:03 WBC 9.3 (4.8-10.8) X10*3/uL RBC 5.68 H (4.20-5.50) X10*6/uL Hgb 16.8 H (12.0-16.0) g/dl Hct 48.9 H (37.0-47.0) % MCV 86.1 (80.0-98.0) fL MCH 29.6 (27.0-33.0) pg MCHC 34.4 (31.0-35.0) g/dl RDW 12.7 (11.0-16.0) % Plt Count 231 (160-400) X10*3/uL MPV 10.4 (9.4-12.3) fL Immature Gran % (Auto) 0.2 (0.0-0.4) % Neut % (Auto) 63.3 (45-73) % Lymph % (Auto) 27.7 (20-40) % [place] % (Auto) 5.7 (2-11) % Eos % (Auto) 2.3 (0-4) % Baso % (Auto) 0.8 (0-2) % Lymph # (Auto) 2.6 (1.2-4.9) X10*3/uL [place] # (Auto) 0.5 (0.1-1.2) X10*3/uL Eos # (Auto) 0.2 (0.0-0.4) X10*3/uL Baso # (Auto) 0.1 (0.0-0.2) X10*3/uL Abs Immat Gran (auto) 0.02 (0.00-0.03) X10*3/uL Absolute Neuts (auto) 5.9 (2.0-8.3) x10*3/uL Absolute Nucleated RBC 0.000 (0.0-0.012) X10*3/uL Nucleated RBC % (auto) 0.0 (0.0-0.2) /100WBC Sodium 137 (135-145) mmol/L Potassium 4.3 (3.3-5.1) mmol/L Chloride 99 (96-108) mmol/L Carbon Dioxide 33 H (22-29) mmol/L Anion Gap 9 L (12-20) BUN 14 (9-16) mg/dL Creatinine 0.77 (0.5-1.4) mg/dL Estim Creat Clear Calc 107.0 Estimated GFR > 60 Random Glucose 325 H (60-115) mg/dL Calcium 8.9 (8.4-10.2) mg/dL Urine Color Dark Yellow Urine Appearance Clear Urine pH 5.5 (5.0-9.0) Ur Specific [place] >= 1.030 H (1.005-1.025) Urine Protein 100 (2+) H (Neg-Trace) mg/dL Urine Glucose (UA) >=1000 H (Negative) mg/dL Urine Ketones Negative (Negative) mg/dL Urine Blood Small (1+) H (Negative) Urine Nitrite Negative (Negative) Ur Leukocyte Esterase Small (1+) H (Negative) Urine RBC 11-20 H (0-2) /HPF Urine WBC 0-5 (0-5) /HPF Ur Squamous Epith Cells 6-10 (0-2) /HPF Urine Bacteria Trace (None Seen) Hyaline Casts 0-2 (0-2) /LPF <Timoteo Saucedo - Last Filed: 09/08/22 21:27> Independent Interpretation I performed an independent interpretation of an: Plain X-Ray (No fracture of the pelvis or L-spine) <Timoteo Saucedo - Last Filed: 09/08/22 21:27> Discharge Plan Discharge Clinical Impression: Flank pain <KERRY Mcwilliams - Last Filed: 09/08/22 17:44> Patient Disposition: Home, Self-Care <KERRY Mcwilliams - Last Filed: 09/08/22 17:44> Instructions: Flank Pain (ED) <KERRY Mcwilliams - Last Filed: 09/08/22 17:44> Additional Instructions: I do believe that your pain was most likely musculoskeletal related. Your urine sample did show protein and blood in the urine. You should follow this up with an outpatient ultrasound or CT scan, as we did not address this today. He may take tramadol for severe or breakthrough pain. This may make you sleepy, did not drink alcohol or drive after taking <KERRY Mcwilliams - Last Filed: 09/08/22 17:44> Prescriptions: New tramadol 50 mg tablet 50 mg PO TID PRN (Reason: severe pain (scale score 7-10)) Qty: 15 0RF No Action Flovent HFA 110 mcg/actuation HFA aerosol inhaler 1 puff inhalation Q12H Qty: 12 4RF Rx Instructions: administer with spacer losartan 50 mg tablet 50 mg PO DAILY Qty: 90 0RF (DME) FreeStyle Abdon 2 [place] Misc See Rx Instructions .Route Qty: 1 4RF Rx Instructions: tid testing (DME) FreeStyle Abdon 2 Sensor Kit See Rx Instructions .Route Qty: 1 4RF Rx Instructions: tid testing ergocalciferol (vitamin D2) 1,250 mcg (50,000 unit) capsule 1,250 mcg PO QWEEK 90 Days Qty: 13 3RF (DME) diabetic shoes See Rx Instructions .Route .MEDSUPPLY Qty: 1 0RF Rx Instructions: USE daily levothyroxine 200 mcg tablet 200 mcg PO DAILY Qty: 90 3RF ipratropium-albuterol 0.5 mg-3 mg(2.5 mg base)/3 mL solution for nebulization 3 ml inhalation Q6-8H PRN (Reason: wheezing) Qty: 90 0RF insulin lispro [Humalog KwikPen Insulin] 100 unit/mL insulin pen 20 unit subcut TID Qty: 15 0RF cyanocobalamin (vitamin B-12) 1,000 mcg tablet 1,000 mcg PO DAILY 90 Days Qty: 90 0RF omeprazole 20 mg capsule,delayed release(DR/EC) 20 mg PO DAILY 90 Days Qty: 90 0RF fluticasone propionate 50 mcg/actuation spray,suspension 1 spray intranasal BID Qty: 16 0RF Rx Instructions: administer into each nostril atorvastatin 40 mg tablet 40 mg PO DAILY 90 Days Qty: 90 0RF Flovent Diskus 100 mcg/actuation blister with device 1 inh PO BID Qty: 60 2RF gabapentin 800 mg tablet 800 mg PO TID Qty: 84 3RF Tresiba FlexTouch U-200 200 unit/mL (3 mL) insulin pen 95 unit subcut BEDTIME 30 Days Qty: 14.25 1RF FreeStyle Lite Strips Strip 1 strip miscellaneous QID 30 Days Qty: 100 0RF albuterol sulfate [Proventil HFA] 90 mcg/actuation HFA aerosol inhaler 2 puff inhalation Q4-6H PRN (Reason: wheezing) Qty: 8.5 0RF (DME) Aerochamber Plus Z Stat Spacer See Rx Instructions .Route Qty: 1 0RF Rx Instructions: As directed albuterol sulfate 90 mcg/actuation HFA aerosol inhaler 2 inh inhalation Q8H PRN (Reason: shortness of breath or wheezing) 30 Days Qty: 8.5 2RF meloxicam 15 mg tablet 15 mg PO DAILY Qty: 14 0RF buspirone 7.5 mg tablet 15 mg PO BID escitalopram oxalate 20 mg tablet 10 mg PO DAILY alpha lipoic acid 600 mg capsule 600 mg PO DAILY 30 Days Qty: 30 3RF <KERRY Mcwilliams - Last Filed: 09/08/22 17:44>
[2022-09-08 17:44] VITALS: BP 163/98; PULSE 102; RESP 16; TEMP 36.4; O2SAT 98; BMI 41.4
--- OUTSIDE RECORDS SUMMARY | 2022-09-08 18:36 | XMS_ITS | Continuity of Care Document ---
Author Name Unknown Organization [facility] Address [address] [place] [id number] Care Team Providers Care Pyrometer Temperature Regulator Name Role Phone Nagi AL, Jolynn Jain Primary Care Physician Encounter [facility] Date(s): 07/10/22 - 08/09/22 [facility] [address] [place] [id number] Allergies, Adverse Reactions, Alerts Substance Reaction Severity Status doxycycline ANAPHYLAXIS Active sulfonamides Active Bactrim VERY SICK Active Medications calcium-vitamin D 600 mg-500 intl units oral tablet, extended release 2 tablet, By Mouth, 2 times a day, # 80 tablet, 0 Refills, Maintenance, 10/30/18 11:19:35 EDT, ER Tablet Start Date: 10/30/18 Status: Ordered CeleXA 40 mg oral tablet 40 mg, 1, tablet, By Mouth, Daily at bedtime, # 30 tablet, Refills 0, Maintenance, 09/12/18 15:58:14 EDT Start Date: 09/12/18 Status: Ordered Freestyle escobar 2 14-day sensors Freestyle escobar 2 14-day sensors, See Instructions, # 2 each, Refills 6, Tot. Refills 6, Maintenance, Freestyle escobar 2 reader ; Freestyle escobar 2 14-day sensors, 04/19/21 17:04:00 EST, Supply, 166, cm, 04/13/20 9:21:00 EST, Height Start Date: 04/19/21 Status: Ordered Freestyle escobar 2 reader Freestyle escobar 2 reader, See Instructions, # 1 each, Refills 0, Tot. Refills 0, Maintenance, dx 10.65, 01/05/21 11:03:00 EDT, Supply, 166, cm, 04/13/20 9:21:00 EST, Height Start Date: 01/05/21 Status: Ordered Freestyle Lite Lancets See Instructions, # 200 each, Refills 5, Tot. Refills 5, Maintenance, use as directed for Type 2 Diabetes Mellitus 4x a day dx 11.9, 01/05/21 11:02:00 EDT, Supply, 166, cm, 04/13/20 9:21:00 EST, Height Start Date: 01/05/21 Stop Date: 07/04/21 Status: Ordered Freestyle Lite Test Strips See Instructions, # 200 each, Tot. Refills 5, Maintenance, use as directed for Type 2 Diabetes Mellitus 4x a day dx 11.9, 01/05/21 11:02:00 EDT, Supply, 166, cm, 04/13/20 9:21:00 EST, Height Start Date: 01/05/21 Stop Date: 02/04/21 Status: Ordered gabapentin 800 mg oral tablet 1 tablet = 800 mg, By Mouth, 3 times a day, # 90 tablet, 0 Refills, Maintenance, 09/12/18 15:58:26 EDT, Tablet Start Date: 09/12/18 Status: Ordered Humalog Kwik Pen 100 units/mL subcutaneous injection See Instructions, USE DIRECTED FOR DIABETES MELLITUS TYPE 2 three times a day before meals MAX [id number] UNITS/DAY Please follow the below sliding scale: Blood sugar Humalog dose 100-149 take 20 units 150-199 take 23 units 200... Start Date: 08/26/21 Status: Ordered Januvia 100 mg oral tablet = 100 mg, By Mouth, Daily, # 30 tablet, 0 Refills, Maintenance, 10/21/18 10:37:56 EDT, Tablet Start Date: 10/21/18 Status: Ordered Jardiance 10 mg oral tablet 1 tablet = 10 mg, By Mouth, Daily in AM, # 30 tablet, 0 Refills, Maintenance, 01/05/21 11:00:00 EDT, Tablet, [facility] #[id number], Partial fill upon patient request if the prescription is for a schedule II opioid drug., 166, cm, 04/13/20 9:21:00 EST, He... Start Date: 01/05/21 Status: Ordered Lantus 100 u/ml subcutaneous solution See Instructions, 45U BEFORE BED, 0 Refills, Maintenance, 09/12/18 16:01:38 EDT Start Date: 09/12/18 Status: Ordered levothyroxine 125 mcg (0.125 mg) oral tablet 1 tablet = 125 mcg, By Mouth, Daily, take 1 tab first thing in the AM on an empty stomach 1hr priorto breakfast along with the 75mcg tab, # 30 tablet, 1 Refills, Maintenance, 10/30/18 11:08:51 EDT, Tablet Start Date: 10/30/18 Status: Ordered levothyroxine 75 mcg (0.075 mg) oral tablet 1 tablet = 75 mcg, By Mouth, Daily, take 1 tab first thing in the AM on an empty stomach 1hr prior to breakfast along with the 125mcg tab, # 30 tablet, 1 Refills, Maintenance, 10/30/18 11:08:45 EDT, Tablet Start Date: 10/30/18 Status: Ordered lorazepam 1 mg oral tablet 1 tablet = 1 mg, By Mouth, 2 times a day, PRN as needed for anxiety, # 10 tablet, 0 Refills, Maintenance Start Date: 08/25/12 Stop Date: 08/30/12 Status: Ordered Losartan = 25 mg, By Mouth, Daily, 0 Refills, Maintenance, 09/12/18 16:00:17 EDT Start Date: 09/12/18 Status: Ordered Pen [place], 32 G x 4 mm BD Ultra Fine III See instructions, # 200 each, Refills 5, Tot. Refills 5, Maintenance, use as directed for Type 2 Diabetes Mellitus 4x a day dx 11.9, 01/05/21 10:55:00 EDT, Compound, 166, cm, 04/13/20 9:21:00 EST, Height Start Date: 01/05/21 Stop Date: 07/04/21 Status: Ordered ProAir HFA 90 mcg/inh inhalation aerosol with adapter 1, puffs, Inhalation, Every 4 hours, PRN, # 8.5 Gm, Refills 0, Maintenance, 10/29/18 11:34:31 EDT, Aerosol Start Date: 10/29/18 Status: Ordered Tresiba FlexTouch 200 units/mL subcutaneous solution = 80 units, Subcutaneous Injection, Daily, rotate injection sites, # 18 mL, 5 Refills, Maintenance,05/05/22 12:00:00 EST, Solution, [id number], Partial fill upon patient request if the prescription is for a schedule II opioid drug. Start Date: 05/05/22 Stop Date: 11/01/22 Status: Ordered Tylenol 325 mg oral tablet 650 mg, By Mouth, Every 4 hours, PRN, Refills 0, Maintenance, Pain , Moderate, 10/30/18 11:16:42 EDT Start Date: 10/30/18 Status: Ordered Social History Social History Type Response Smoking Status Current every day rogelio guicho entered on: 02/10/15 Sex Patient Care team information Care Team Personnel Name: Nagi AL, Jolynn Jain Position: Reference Physician Member Role: PCP Address: Address: [address] [place] [id number] [place] [address] Name: Chelsy Lynn RN Position: S RN Member Role: Primary Care Nurse Care Team Related Persons Name: LASHELL AYALA Address: home [address] [place] [address] Name: KATHY JUNE Address: home [address] [place] [id number]
[2022-09-08 19:09] LABS: MANUAL DIFF FLAG NO
[2022-09-08 19:10] LABS: Basophils Absolute Auto 0.1 X10*3/uL (0.0-0.2); Basophils Percent Auto 0.8 % (0-2); Eosinophils Absolute Auto 0.2 X10*3/uL (0.0-0.4); Eosinophils Percent Auto 2.3 % (0-4); Hematocrit 48.9 % (37.0-47.0); Hemoglobin 16.8 g/dl (12.0-16.0); Imm Gran Abs Auto 0.02 X10*3/uL (0.00-0.03); Imm Gran Pct Auto 0.2 % (0.0-0.4); Lymphocytes Absolute Auto 2.6 X10*3/uL (1.2-4.9); Lymphocytes Percent Auto 27.7 % (20-40); Mean Corpuscular HGB Conc 34.4 g/dl (31.0-35.0); Mean Corpuscular Hemoglobin 29.6 pg (27.0-33.0); Mean Corpuscular Volume 86.1 fL (80.0-98.0); Mean Platelet Volume 10.4 fL (9.4-12.3); Monocytes Absolute Auto 0.5 X10*3/uL (0.1-1.2); Monocytes Percent Auto 5.7 % (2-11); Neutrophils Absolute Auto 5.9 x10*3/uL (2.0-8.3); Neutrophils Percent Auto 63.3 % (45-73); Platelet Count 231 X10*3/uL (160-400); Red Blood Count 5.68 X10*6/uL (4.20-5.50); Red Cell Distribution Width 12.7 % (11.0-16.0); White Blood Count 9.3 X10*3/uL (4.8-10.8)
[2022-09-08 19:28] LABS: Anion Gap 9 (12-20); Blood Urea Nitrogen 14 mg/dL (9-16); Calcium 8.9 mg/dL (8.4-10.2); Carbon Dioxide 33 mmol/L (22-29); Chloride 99 mmol/L (96-108); Estimated Glomerular Filt Rate > 60; Glucose Random 325 mg/dL (60-115); Potassium 4.3 mmol/L (3.3-5.1); Sodium 137 mmol/L (135-145)
[2022-09-08] MEDS: Ketorolac Tromethamine 30 MG/ML VIAL IM (20:56)
[2022-09-08 21:00] LABS: Color Urine Dark Yellow; Glucose Urine UA >=1000 mg/dL (Negative); Leukocyte Esterase Urine Small (1+) (Negative); Nitrite Urine Negative (Negative); PH 5.5 (5.0-9.0); Specific Gravity - Urine >= 1.030 (1.005-1.025); UMIC TRIGGER UACC YES; Urine Blood Small (1+) (Negative); Urine Ketones Negative (Negative); Urine Protein 100 (2+) mg/dL (Neg-Trace)
[2022-09-08 21:01] LABS: Appearance Urine Clear
[2022-09-08 21:04] LABS: Bacteria Urine Trace (None Seen); Hyaline Casts Urine 0-2 /LPF (0-2); UACC Culture Trigger YES; WBC Urine 0-5 /HPF (0-5)
== END 2022-09-08 21:40 | disposition home or self-care (01) ==
PROVIDERS: Physician Assistant; Physician Assistant Medical; Emergency Provider Emergency Medicine; PCP Nurse Practitioner Family
DX: M54.50 Low back pain, unspecified (principal); M25.552 Pain in left hip; R10.9 Unspecified abdominal pain; F17.210 Nicotine dependence, cigarettes, uncomplicated; Z71.6 Tobacco abuse counseling; Z79.899 Other long term (current) drug therapy
CPT/HCPCS: 36415; 72100; 73502; 80048; 81001; 81003; 85025; 87086; 87147; 96372; 99283; 99284; J1885

== ENCOUNTER 2022-09-26 16:34 | Emergency (ER) | payer OTHER, SELFPAY ==
--- NOTE | ~2022-09-26 | CT_ITS ---
EXAMINATION: CT ABDOMEN AND PELVIS WITHOUT CONTRAST CLINICAL INFORMATION: Left flank pain and left lower quadrant pain, nausea. COMPARISON: CT pelvis 09/03/2021. CT abdomen/pelvis 06/02/2021. TECHNIQUE: Multidetector volumetric imaging was performed from the superior aspect of the liver through the pubic symphysis. Sagittal and coronal reformatted images were obtained on the technologist's workstation. This CT examination was performed using dose optimization techniques as appropriate, variously including the following: *Automated exposure control *Adjustment of mA and/or kV according to patient size (this includes techniques or standardized protocols for targeted exams where dose is matched to indication/reason for exam; i.e. extremities or head) *Use of iterative reconstruction technique DLP: 1241 mGy-cm FINDINGS: The lack of intravenous contrast limits evaluation of the solid visceral organs including the liver, spleen, pancreas, and kidneys. LUNG BASES: No focal consolidation or pleural effusion. LIVER, GALLBLADDER, AND BILIARY TREE: The liver is enlarged measuring 22.2 cm craniocaudally with decreased attenuation of the liver parenchyma suggesting hepatic steatosis. Small calcified granuloma in the hepatic dome. No suspicious focal liver lesions in this limited noncontrast examination. No evidence of calcified gallbladder calculi nor findings to suspect acute cholecystitis. No biliary ductal dilatation. PANCREAS: Unremarkable. SPLEEN: Unremarkable. ADRENAL GLANDS: Unremarkable. KIDNEYS AND URETERS: lobation. No hydronephrosis, hydroureter, or calculi seen. No perinephric stranding. BLADDER: Unremarkable. GASTROINTESTINAL TRACT: The stomach and the small bowel are nondilated. The appendix is not identified, however there are no regional inflammatory changes to suspect acute appendicitis. No findings to suspect acute colitis or diverticulitis. No evidence of bowel obstruction. ABDOMINAL WALL: No significant hernia is appreciated. LYMPH NODES: Normal. VASCULAR: Unremarkable. PELVIC VISCERA: Unremarkable. OSSEOUS STRUCTURES: Degenerative changes of the spine. No acute or aggressive appearing osseous abnormalities. CT/CT abdomen pelvis wo IV con IMPRESSION: 1. Hepatomegaly and hepatic steatosis. 2. No acute abdominal or pelvic abnormalities to explain the patient's symptoms.
--- NOTE | 2022-09-26 17:08 | ED_ITS ---
HPI - Abdominal Pain General Chief Complaint: Abdominal Pain Stated Complaint: back/abd pain Time Seen by Provider: 09/26/22 21:00 Related Data Home Medications Medication Instructions Recorded Confirmed buspirone 7.5 mg tablet 15 mg PO BID 07/26/22 08/23/22 Previous Rx's Medication Instructions Recorded fluticasone propionate 110 1 puff inhalation Q12H #12 grams 05/12/21 mcg/actuation HFA aerosol inhaler (Flovent HFA) albuterol sulfate 90 mcg/actuation 2 inh inhalation Q8H PRN shortness 07/20/21 aerosol inhaler of breath or wheezing 30 days #8.5 grams losartan 50 mg tablet 50 mg PO DAILY #90 tabs 10/13/21 flash glucose scanning reader #1 ea 01/05/22 (Best Solaryle Abdon 2 [place]) flash glucose sensor (FreeStyle #1 ea 01/11/22 Abdon 2 Sensor kit) ergocalciferol (vitamin D2) 1,250 1,250 mcg PO QWEEK 90 days #13 caps 01/15/22 mcg (50,000 unit) capsule diabetic shoes #1 ea 03/07/22 levothyroxine 200 mcg tablet 200 mcg PO DAILY #90 tabs 03/09/22 ipratropium 0.5 mg-albuterol 3 mg 3 ml inhalation Q6-8H PRN wheezing 03/28/22 (2.5 mg base)/3 mL nebulization #90 mL soln albuterol sulfate 90 mcg/actuation 2 puff inhalation Q4-6H PRN 04/29/22 aerosol inhaler (Proventil HFA) wheezing #8.5 grams inhalational spacing device #1 ea 04/29/22 (Aerochamber Plus Z Stat spacer) insulin lispro 100 unit/mL 20 unit (0.2 mL) subcut TID #15 mL 05/04/22 subcutaneous pen (Humalog KwikPen (U-100) Insulin) atorvastatin 40 mg tablet 40 mg PO DAILY 90 days #90 tabs 07/21/22 fluticasone propionate 100 1 inh PO BID #60 ea 07/21/22 mcg/actuation blister powder for inhalation (Flovent Diskus) fluticasone propionate 50 1 spray intranasal BID #16 grams 07/21/22 mcg/actuation nasal spray,suspension gabapentin 800 mg tablet 800 mg PO TID #84 tabs 07/24/22 alpha lipoic acid 600 mg capsule 600 mg PO DAILY 30 days #30 caps 07/26/22 insulin degludec 200 unit/mL (3 95 unit (0.475 mL) subcut BEDTIME 08/10/22 mL) subcutaneous pen (Tresiba 30 days #14.25 mL FlexTouch U-200 insulin) meloxicam 15 mg tablet 15 mg PO DAILY #14 tabs 08/23/22 tramadol 50 mg tablet 50 mg PO TID PRN severe pain 09/08/22 (scale score 7-10) #15 tabs cyanocobalamin (vitamin B-12) 1,000 mcg PO DAILY 90 days #90 tabs 09/13/22 1,000 mcg tablet omeprazole 20 mg capsule,delayed 20 mg PO DAILY 90 days #90 caps 09/13/22 release blood sugar diagnostic (FreeStyle 1 strip miscellaneous QID diabetes 09/19/22 Lite Strips) #300 strips escitalopram oxalate 20 mg tablet 10 mg PO DAILY #90 tabs 09/20/22 Allergies Allergy/AdvReac Type Severity Reaction Status Date / Time doxycycline [DOXYCYCLINE] Allergy Severe THROAT Verified 08/23/22 13:27 SWELLING clindamycin [CLINDAMYCIN] Allergy Intermediate CHEST PAIN Verified 08/23/22 13:27 Sulfa (Sulfonamide Allergy Unknown makes her Verified 08/23/22 13:27 Antibiotics) sick, vomit trimethoprim [From BACTRIM] Allergy Unknown NAUSEA & Verified 08/23/22 13:27 VOMITING sulfamethoxazole AdvReac Mild NAUSEA & Verified 08/23/22 13:27 [From BACTRIM] VOMITING lisinopril Allergy Unknown headaches Uncoded 08/23/22 13:27 [facility] Past Medical History Medical History Anxiety B12 deficiency Cellulitis of buttock Depression Diabetes Hyperlipidemia Migraines Morbid obesity Sciatic leg pain Uncontrolled diabetes mellitus Surgical History H/O elbow surgery H/O thyroidectomy Hx of tubal ligation Family History Family History Father HTN (hypertension) CVD (cardiovascular disease) Diabetes mellitus Mental health disorder Mother Diabetes mellitus Uterine cancer COPD (chronic obstructive pulmonary disease) Mental health disorder Maternal Grandmother Breast cancer Paternal Aunt Breast cancer Brother No problems noted. Sister Substance use disorder Mental health disorder Sister No problems noted. Sister No problems noted. Daughter No problems noted. Son No problems noted. Son No problems noted. Son No problems noted. Son No problems noted. Son No problems noted. Son No problems noted. Social History Social History Household Members: Family Housing: Apartment Do you presently have visiting nurse or other home services: No Alcohol intake: never Patient Tobacco Use Status: Current everyday Tobacco user Tobacco use type: Cigarette Cigarette Packs Per Day: 1 Years Smoked: 20 e-Cigarette/Vaping Use: Currently Using Second Hand Smoke Exposure: No Advance Directives: No Advance Directives Information Provided: No service: No Current occupational status: employed Current occupation: [employer] Physical Exam ED Vital Signs: BMI result Body Mass Index 41.9 Course Course Course Narrative: RME: 51yo F w/PMHx anxiety, depression, DM, HLD, obesity, c/o L flank pain radiating to LLQ x 1 mos w/assoc nausea. reports decreased PO intake, & bloating . Was seen in our ED on 09/08 for similar sx but declined imaging at that time. labs, UA, CTAP ordered Full HPI, ROS and PE to be performed by primary ED provider. Medical Decision Making Lab Data 09/26/22 17:35 09/26/22 17:35 Labs: Lab Results 09/26/22 09/26/22 09/26/22 Range/Units 17:35 17:35 17:37 WBC 10.7 (4.8-10.8) X10*3/uL RBC 5.70 H (4.20-5.50) X10*6/uL Hgb 16.8 H (12.0-16.0) g/dl Hct 47.8 H (37.0-47.0) % MCV 83.9 (80.0-98.0) fL MCH 29.5 (27.0-33.0) pg MCHC 35.1 H (31.0-35.0) g/dl RDW 12.5 (11.0-16.0) % Plt Count 265 (160-400) X10*3/uL MPV 10.9 (9.4-12.3) fL Immature Gran % (Auto) 0.2 (0.0-0.4) % Neut % (Auto) 58.3 (45-73) % Lymph % (Auto) 32.1 (20-40) % [place] % (Auto) 6.0 (2-11) % Eos % (Auto) 2.5 (0-4) % Baso % (Auto) 0.9 (0-2) % Lymph # (Auto) 3.5 (1.2-4.9) X10*3/uL [place] # (Auto) 0.6 (0.1-1.2) X10*3/uL Eos # (Auto) 0.3 (0.0-0.4) X10*3/uL Baso # (Auto) 0.1 (0.0-0.2) X10*3/uL Abs Immat Gran (auto) 0.02 (0.00-0.03) X10*3/uL Absolute Neuts (auto) 6.3 (2.0-8.3) x10*3/uL Absolute Nucleated RBC 0.000 (0.0-0.012) X10*3/uL Nucleated RBC % (auto) 0.0 (0.0-0.2) /100WBC Sodium 135 (135-145) mmol/L Potassium 4.2 (3.3-5.1) mmol/L Chloride 97 (96-108) mmol/L Carbon Dioxide 30 H (22-29) mmol/L Anion Gap 12 (12-20) BUN 11 (9-16) mg/dL Creatinine 0.91 (0.5-1.4) mg/dL Estim Creat Clear Calc 91.2 Estimated GFR > 60 Random Glucose 432 H* (60-115) mg/dL Calcium 9.1 (8.4-10.2) mg/dL Magnesium 1.6 (1.6-2.6) mg/dL Total Bilirubin 0.7 (0.0-1.0) mg/dL Direct Bilirubin 0.2 (0.0-0.5) mg/dL AST 24 (5-31) U/L ALT 13 (0-31) U/L Alkaline Phosphatase 107 (39-117) U/L C-Reactive Protein 1.67 H (< or = 0.50) mg/dL Total Protein 7.2 (6.5-8.0) g/dL Albumin 3.7 (3.5-5.0) g/dL Lipase 28 (8-78) U/L Urine Color Yellow Urine Appearance Clear Urine pH 6.5 (5.0-9.0) Ur Specific [place] >= 1.030 H (1.005-1.025) Urine Protein 30 (1+) H (Neg-Trace) mg/dL Urine Glucose (UA) >=1000 H (Negative) mg/dL Urine Ketones Negative (Negative) mg/dL Urine Blood Small (1+) H (Negative) Urine Nitrite Negative (Negative) Ur Leukocyte Esterase Small (1+) H (Negative) Urine RBC 6-10 H (0-2) /HPF Urine WBC 0-5 (0-5) /HPF Ur Squamous Epith Cells 6-10 (0-2) /HPF Urine Bacteria Trace (None Seen) Hyaline Casts 0-2 (0-2) /LPF Acetone, Qual Negative (Negative) Medications Administered Discontinued Medications Generic Name Dose Route Start Last Admin Trade Name Freq PRN Reason Stop Dose Admin Sodium Chloride 1,000 mls @ 999 mls/hr 09/26/22 21:30 09/26/22 21:54 Ns IV 09/26/22 22:30 Not Given .Q1H1M [facility] Insulin Human Regular 10 unit 09/26/22 21:17 09/26/22 21:53 Insulin Regular, Human 100 Unit/Ml 3 Ml Vial IVPUSH 09/26/22 21:18 Not Given ONCE ONE Ketorolac Tromethamine 30 mg 09/26/22 21:17 09/26/22 21:54 Ketorolac Tromethamine 30 Mg/Ml Vial IVPUSH 09/26/22 21:18 Not Given ONCE ONE Discharge Plan Discharge Clinical Impression: Acute hyperglycemia, Abdominal pain Patient Disposition: Left Against Medical Advice Instructions: Abdominal Pain (ED), Diabetic Hyperglycemia (ED) Prescriptions: No Action Flovent HFA 110 mcg/actuation HFA aerosol inhaler 1 puff inhalation Q12H Qty: 12 4RF Rx Instructions: administer with spacer losartan 50 mg tablet 50 mg PO DAILY Qty: 90 0RF (DME) FreeStyle Abdon 2 [place] Misc See Rx Instructions .Route Qty: 1 4RF Rx Instructions: tid testing (DME) FreeStyle Abdon 2 Sensor Kit See Rx Instructions .Route Qty: 1 4RF Rx Instructions: tid testing ergocalciferol (vitamin D2) 1,250 mcg (50,000 unit) capsule 1,250 mcg PO QWEEK 90 Days Qty: 13 3RF (DME) diabetic shoes See Rx Instructions .Route .MEDSUPPLY Qty: 1 0RF Rx Instructions: USE daily levothyroxine 200 mcg tablet 200 mcg PO DAILY Qty: 90 3RF ipratropium-albuterol 0.5 mg-3 mg(2.5 mg base)/3 mL solution for nebulization 3 ml inhalation Q6-8H PRN (Reason: wheezing) Qty: 90 0RF insulin lispro [Humalog KwikPen Insulin] 100 unit/mL insulin pen 20 unit subcut TID Qty: 15 0RF fluticasone propionate 50 mcg/actuation spray,suspension 1 spray intranasal BID Qty: 16 0RF Rx Instructions: administer into each nostril atorvastatin 40 mg tablet 40 mg PO DAILY 90 Days Qty: 90 0RF Flovent Diskus 100 mcg/actuation blister with device 1 inh PO BID Qty: 60 2RF gabapentin 800 mg tablet 800 mg PO TID Qty: 84 3RF Tresiba FlexTouch U-200 200 unit/mL (3 mL) insulin pen 95 unit subcut BEDTIME 30 Days Qty: 14.25 1RF cyanocobalamin (vitamin B-12) 1,000 mcg tablet 1,000 mcg PO DAILY 90 Days Qty: 90 1RF omeprazole 20 mg capsule,delayed release(DR/EC) 20 mg PO DAILY 90 Days Qty: 90 1RF FreeStyle Lite Strips Strip 1 strip miscellaneous QID Qty: 300 3RF escitalopram oxalate 20 mg tablet 10 mg PO DAILY Qty: 90 1RF albuterol sulfate [Proventil HFA] 90 mcg/actuation HFA aerosol inhaler 2 puff inhalation Q4-6H PRN (Reason: wheezing) Qty: 8.5 0RF (DME) Aerochamber Plus Z Stat Spacer See Rx Instructions .Route Qty: 1 0RF Rx Instructions: As directed tramadol 50 mg tablet 50 mg PO TID PRN (Reason: severe pain (scale score 7-10)) Qty: 15 0RF albuterol sulfate 90 mcg/actuation HFA aerosol inhaler 2 inh inhalation Q8H PRN (Reason: shortness of breath or wheezing) 30 Days Qty: 8.5 2RF meloxicam 15 mg tablet 15 mg PO DAILY Qty: 14 0RF buspirone 7.5 mg tablet 15 mg PO BID alpha lipoic acid 600 mg capsule 600 mg PO DAILY 30 Days Qty: 30 3RF Stand Alone Forms: Against Medical Advice Interventions: ED Discharge Assessment Last Done: 09/26/22 22:08 Discharge Date/Time: 09/26/22 22:10
[2022-09-26 17:09] VITALS: BP 150/96; PULSE 94; RESP 18; TEMP 36.7; O2SAT 96; BMI 41.9
[2022-09-26 17:42] LABS: MANUAL DIFF FLAG NO
[2022-09-26 17:51] LABS: Basophils Absolute Auto 0.1 X10*3/uL (0.0-0.2); Basophils Percent Auto 0.9 % (0-2); Eosinophils Absolute Auto 0.3 X10*3/uL (0.0-0.4); Eosinophils Percent Auto 2.5 % (0-4); Hematocrit 47.8 % (37.0-47.0); Hemoglobin 16.8 g/dl (12.0-16.0); Imm Gran Abs Auto 0.02 X10*3/uL (0.00-0.03); Imm Gran Pct Auto 0.2 % (0.0-0.4); Lymphocytes Absolute Auto 3.5 X10*3/uL (1.2-4.9); Lymphocytes Percent Auto 32.1 % (20-40); Mean Corpuscular HGB Conc 35.1 g/dl (31.0-35.0); Mean Corpuscular Hemoglobin 29.5 pg (27.0-33.0); Mean Corpuscular Volume 83.9 fL (80.0-98.0); Mean Platelet Volume 10.9 fL (9.4-12.3); Monocytes Absolute Auto 0.6 X10*3/uL (0.1-1.2); Neutrophils Absolute Auto 6.3 x10*3/uL (2.0-8.3); Neutrophils Percent Auto 58.3 % (45-73); Platelet Count 265 X10*3/uL (160-400); Red Cell Distribution Width 12.5 % (11.0-16.0); White Blood Count 10.7 X10*3/uL (4.8-10.8)
[2022-09-26 17:53] LABS: Appearance Urine Clear; Color Urine Yellow; Glucose Urine UA >=1000 mg/dL (Negative); Leukocyte Esterase Urine Small (1+) (Negative); Nitrite Urine Negative (Negative); PH 6.5 (5.0-9.0); Specific Gravity - Urine >= 1.030 (1.005-1.025); UMIC TRIGGER UACC YES; Urine Blood Small (1+) (Negative); Urine Ketones Negative (Negative); Urine Protein 30 (1+) mg/dL (Neg-Trace)
[2022-09-26 18:13] LABS: Alanine Aminotransferase 13 U/L (0-31); Albumin Level 3.7 g/dL (3.5-5.0); Alkaline Phosphatase 107 U/L (39-117); Anion Gap 12 (12-20); Aspartate Amino Transferase 24 U/L (5-31); Bilirubin Direct 0.2 mg/dL (0.0-0.5); Bilirubin Total 0.7 mg/dL (0.0-1.0); Blood Urea Nitrogen 11 mg/dL (9-16); Calcium 9.1 mg/dL (8.4-10.2); Carbon Dioxide 30 mmol/L (22-29); Chloride 97 mmol/L (96-108); Creatinine Clr Calc Pharmacy 91.2; Estimated Glomerular Filt Rate > 60; Glucose Random 432 mg/dL (60-115); Lipase 28 U/L (8-78); Magnesium 1.6 mg/dL (1.6-2.6); Potassium 4.2 mmol/L (3.3-5.1); Sodium 135 mmol/L (135-145); Total Protein 7.2 g/dL (6.5-8.0)
[2022-09-26 18:17] LABS: WBC Urine 0-5 /HPF (0-5)
[2022-09-26 18:18] LABS: Bacteria Urine Trace (None Seen); Hyaline Casts Urine 0-2 /LPF (0-2); UACC Culture Trigger YES
[2022-09-26 18:41] LABS: Acetone, serum QL Negative (Negative)
[2022-09-26 20:04] VITALS: BP 146/93; PULSE 104; RESP 14; TEMP 36.8; O2SAT 95
--- NOTE | 2022-09-26 21:19 | ED.ABDPAIN ---
HPI - Abdominal Pain General Chief Complaint: Abdominal Pain Stated Complaint: back/abd pain Time Seen by Provider: 09/26/22 21:00 History of Present Illness HPI narrative: Patient is a 51-year-old female presents today with having abdominal pain over the left flank area. Radiating down to the left lower quadrant it is sharp. Associated with some mild nausea. Patient claims worse with certain movements. It has been ongoing for the last month. No history of abdominal surgery. Patient claims is worse during physical therapy. No vaginal discharge. No pain on urination. No nausea no vomiting or diarrhea. Patient drank a lot of juice prior to coming to the hospital. Patient claims she was thirsty at the time. Related Data Home Medications Medication Instructions Recorded Confirmed buspirone 7.5 mg tablet 15 mg PO BID 07/26/22 08/23/22 Previous Rx's Medication Instructions Recorded fluticasone propionate 110 1 puff inhalation Q12H #12 grams 05/12/21 mcg/actuation HFA aerosol inhaler (Flovent HFA) albuterol sulfate 90 mcg/actuation 2 inh inhalation Q8H PRN shortness 07/20/21 aerosol inhaler of breath or wheezing 30 days #8.5 grams losartan 50 mg tablet 50 mg PO DAILY #90 tabs 10/13/21 flash glucose scanning reader #1 ea 01/05/22 (FreeStyle Abdon 2 Norphlet) flash glucose sensor (FreeStyle #1 ea 01/11/22 Abdon 2 Sensor kit) ergocalciferol (vitamin D2) 1,250 1,250 mcg PO QWEEK 90 days #13 caps 01/15/22 mcg (50,000 unit) capsule diabetic shoes #1 ea 03/07/22 levothyroxine 200 mcg tablet 200 mcg PO DAILY #90 tabs 03/09/22 ipratropium 0.5 mg-albuterol 3 mg 3 ml inhalation Q6-8H PRN wheezing 03/28/22 (2.5 mg base)/3 mL nebulization #90 mL soln albuterol sulfate 90 mcg/actuation 2 puff inhalation Q4-6H PRN 04/29/22 aerosol inhaler (Proventil HFA) wheezing #8.5 grams inhalational spacing device #1 ea 04/29/22 (Aerochamber Plus Z Stat spacer) insulin lispro 100 unit/mL 20 unit (0.2 mL) subcut TID #15 mL 05/04/22 subcutaneous pen (Humalog KwikPen (U-100) Insulin) atorvastatin 40 mg tablet 40 mg PO DAILY 90 days #90 tabs 07/21/22 fluticasone propionate 100 1 inh PO BID #60 ea 07/21/22 mcg/actuation blister powder for inhalation (Flovent Diskus) fluticasone propionate 50 1 spray intranasal BID #16 grams 07/21/22 mcg/actuation nasal spray,suspension gabapentin 800 mg tablet 800 mg PO TID #84 tabs 07/24/22 alpha lipoic acid 600 mg capsule 600 mg PO DAILY 30 days #30 caps 07/26/22 insulin degludec 200 unit/mL (3 95 unit (0.475 mL) subcut BEDTIME 08/10/22 mL) subcutaneous pen (Tresiba 30 days #14.25 mL FlexTouch U-200 insulin) meloxicam 15 mg tablet 15 mg PO DAILY #14 tabs 08/23/22 tramadol 50 mg tablet 50 mg PO TID PRN severe pain 09/08/22 (scale score 7-10) #15 tabs cyanocobalamin (vitamin B-12) 1,000 mcg PO DAILY 90 days #90 tabs 09/13/22 1,000 mcg tablet omeprazole 20 mg capsule,delayed 20 mg PO DAILY 90 days #90 caps 09/13/22 release blood sugar diagnostic (FreeStyle 1 strip miscellaneous QID diabetes 09/19/22 Lite Strips) #300 strips escitalopram oxalate 20 mg tablet 10 mg PO DAILY #90 tabs 09/20/22 Allergies Allergy/AdvReac Type Severity Reaction Status Date / Time doxycycline [DOXYCYCLINE] Allergy Severe THROAT Verified 08/23/22 13:27 SWELLING clindamycin [CLINDAMYCIN] Allergy Intermediate CHEST PAIN Verified 08/23/22 13:27 Sulfa (Sulfonamide Allergy Unknown makes her Verified 08/23/22 13:27 Antibiotics) sick, vomit trimethoprim [From BACTRIM] Allergy Unknown NAUSEA & Verified 08/23/22 13:27 VOMITING sulfamethoxazole AdvReac Mild NAUSEA & Verified 08/23/22 13:27 [From BACTRIM] VOMITING lisinopril Allergy Unknown headaches Uncoded 08/23/22 13:27 Review of Systems Review of Systems No fever no chills no cough no congestion or upper respiratory symptoms. Positive abdominal pain. No nausea no vomiting Yes all other systems are reviewed and are negative [facility] Past Medical History Attestation statement: The following information was validated with the patient. Medical History Anxiety B12 deficiency Cellulitis of buttock Depression Diabetes Hyperlipidemia Migraines Morbid obesity Sciatic leg pain Uncontrolled diabetes mellitus Surgical History H/O elbow surgery H/O thyroidectomy Hx of tubal ligation Family History Family History Father HTN (hypertension) CVD (cardiovascular disease) Diabetes mellitus Mental health disorder Mother Diabetes mellitus Uterine cancer COPD (chronic obstructive pulmonary disease) Mental health disorder Maternal Grandmother Breast cancer Paternal Aunt Breast cancer Brother No problems noted. Sister Substance use disorder Mental health disorder Sister No problems noted. Sister No problems noted. Daughter No problems noted. Son No problems noted. Son No problems noted. Son No problems noted. Son No problems noted. Son No problems noted. Son No problems noted. Social History Social History Household Members: Family Housing: Apartment Do you presently have visiting nurse or other home services: No Alcohol intake: never Patient Tobacco Use Status: Current everyday Tobacco user Tobacco use type: Cigarette Cigarette Packs Per Day: 1 Years Smoked: 20 e-Cigarette/Vaping Use: Currently Using Second Hand Smoke Exposure: No Advance Directives: No Advance Directives Information Provided: No service: No Current occupational status: employed Current occupation: [employer] Physical Exam ED Vital Signs: Vital Signs - 24 hr 09/26/22 17:09 09/26/22 20:04 Temperature 98.0 F 98.3 F Pulse Rate 94 104 H Respiratory Rate 18 14 Blood Pressure 150/96 H 146/93 H Pulse Oximetry 96 95 Oxygen Delivery Method Room Air Room Air BMI result Body Mass Index 41.9 Appearance: Alert. Oriented X3. No acute distress. Eyes: Pupils equal, round and reactive to light. ENT: Pharynx normal. Neck: Normal inspection. Neck supple. No lymph nodes noted. No crepitus CVS: Normal heart rate and rhythm. Pulses normal. Normal S1 and S2 Respiratory: No respiratory distress. Breath sounds normal. No Wheezing. No rales Abdomen: Soft and nontender. No rigidity. No distention. good BS x4 Skin: Skin warm and dry. Normal skin color. Normal skin turgor. Extremities: No lower extremity edema. Neurovascular intact to all extremities. No Lacerations. No Rash Neuro: Oriented X 3. No motor deficit. No sensory deficit. Moving all extermities. No slurred speech Medical Decision Making Medical Decision Making [facility] Narrative: Patient well appearing no acute distress. Her sugar is elevated at over 430. There is no evidence of DKA. Patient's bicarb is elevated. Anion gap is normal. There is a good reason why patient had elevated sugars she ingested large amount of juice prior to arrival. Will give patient some IV fluids. Some insulin. Discussed with patient the need to stay on a diabetic diet. Patient had abdominal pain for the last month. A CT scan of the abdomen was done. There was no evidence of obstruction, abscess, perforation. There is no evidence of any kidney stone. No appendicitis. Patient refuse insulin. Refused IV fluids. Offered insulin subQ. Offered to monitor patient. Patient refused. Understood the risk of leaving including going to diabetic ketoacidosis. Long-term side effects of elevated sugar, dehydration, kidney problems patient left against medical advice. Differential Diagnosis Differential Diagnoses: The differential diagnosis associated with the presentation includes Hyperglycemia, DKA, obstruction, abscess, perforation Lab Data [facility] Lab Attestation statement: I reviewed the patient's lab results. 09/26/22 17:35 09/26/22 17:35 Labs: Lab Results 09/26/22 09/26/22 09/26/22 Range/Units 17:35 17:35 17:37 WBC 10.7 (4.8-10.8) X10*3/uL RBC 5.70 H (4.20-5.50) X10*6/uL Hgb 16.8 H (12.0-16.0) g/dl Hct 47.8 H (37.0-47.0) % MCV 83.9 (80.0-98.0) fL MCH 29.5 (27.0-33.0) pg MCHC 35.1 H (31.0-35.0) g/dl RDW 12.5 (11.0-16.0) % Plt Count 265 (160-400) X10*3/uL MPV 10.9 (9.4-12.3) fL Immature Gran % (Auto) 0.2 (0.0-0.4) % Neut % (Auto) 58.3 (45-73) % Lymph % (Auto) 32.1 (20-40) % [place] % (Auto) 6.0 (2-11) % Eos % (Auto) 2.5 (0-4) % Baso % (Auto) 0.9 (0-2) % Lymph # (Auto) 3.5 (1.2-4.9) X10*3/uL [place] # (Auto) 0.6 (0.1-1.2) X10*3/uL Eos # (Auto) 0.3 (0.0-0.4) X10*3/uL Baso # (Auto) 0.1 (0.0-0.2) X10*3/uL Abs Immat Gran (auto) 0.02 (0.00-0.03) X10*3/uL Absolute Neuts (auto) 6.3 (2.0-8.3) x10*3/uL Absolute Nucleated RBC 0.000 (0.0-0.012) X10*3/uL Nucleated RBC % (auto) 0.0 (0.0-0.2) /100WBC Sodium 135 (135-145) mmol/L Potassium 4.2 (3.3-5.1) mmol/L Chloride 97 (96-108) mmol/L Carbon Dioxide 30 H (22-29) mmol/L Anion Gap 12 (12-20) BUN 11 (9-16) mg/dL Creatinine 0.91 (0.5-1.4) mg/dL Estim Creat Clear Calc 91.2 Estimated GFR > 60 Random Glucose 432 H* (60-115) mg/dL Calcium 9.1 (8.4-10.2) mg/dL Magnesium 1.6 (1.6-2.6) mg/dL Total Bilirubin 0.7 (0.0-1.0) mg/dL Direct Bilirubin 0.2 (0.0-0.5) mg/dL AST 24 (5-31) U/L ALT 13 (0-31) U/L Alkaline Phosphatase 107 (39-117) U/L Total Protein 7.2 (6.5-8.0) g/dL Albumin 3.7 (3.5-5.0) g/dL Lipase 28 (8-78) U/L Urine Color Yellow Urine Appearance Clear Urine pH 6.5 (5.0-9.0) Ur Specific [place] >= 1.030 H (1.005-1.025) Urine Protein 30 (1+) H (Neg-Trace) mg/dL Urine Glucose (UA) >=1000 H (Negative) mg/dL Urine Ketones Negative (Negative) mg/dL Urine Blood Small (1+) H (Negative) Urine Nitrite Negative (Negative) Ur Leukocyte Esterase Small (1+) H (Negative) Urine RBC 6-10 H (0-2) /HPF Urine WBC 0-5 (0-5) /HPF Ur Squamous Epith Cells 6-10 (0-2) /HPF Urine Bacteria Trace (None Seen) Hyaline Casts 0-2 (0-2) /LPF Acetone, Qual Negative (Negative) External Record Review External record reviewed: Inpatient record Chronic Conditions Patient?s care impacted by: Diabetes and Hypertension Social Determinants Patient?s care significantly limited by Social Determinants of Health including: Inadequate housing Patient is losing her apartment Discharge Plan Discharge Clinical Impression: Acute hyperglycemia, Abdominal pain Patient Disposition: Left Against Medical Advice Instructions: Diabetic Hyperglycemia (ED), Abdominal Pain (ED) Prescriptions: No Action Flovent HFA 110 mcg/actuation HFA aerosol inhaler 1 puff inhalation Q12H Qty: 12 4RF Rx Instructions: administer with spacer losartan 50 mg tablet 50 mg PO DAILY Qty: 90 0RF (DME) FreeStyle Abdon 2 Norphlet Misc See Rx Instructions .Route Qty: 1 4RF Rx Instructions: tid testing (DME) FreeStyle Abdon 2 Sensor Kit See Rx Instructions .Route Qty: 1 4RF Rx Instructions: tid testing ergocalciferol (vitamin D2) 1,250 mcg (50,000 unit) capsule 1,250 mcg PO QWEEK 90 Days Qty: 13 3RF (DME) diabetic shoes See Rx Instructions .Route .MEDSUPPLY Qty: 1 0RF Rx Instructions: USE daily levothyroxine 200 mcg tablet 200 mcg PO DAILY Qty: 90 3RF ipratropium-albuterol 0.5 mg-3 mg(2.5 mg base)/3 mL solution for nebulization 3 ml inhalation Q6-8H PRN (Reason: wheezing) Qty: 90 0RF insulin lispro [Humalog KwikPen Insulin] 100 unit/mL insulin pen 20 unit subcut TID Qty: 15 0RF fluticasone propionate 50 mcg/actuation spray,suspension 1 spray intranasal BID Qty: 16 0RF Rx Instructions: administer into each nostril atorvastatin 40 mg tablet 40 mg PO DAILY 90 Days Qty: 90 0RF Flovent Diskus 100 mcg/actuation blister with device 1 inh PO BID Qty: 60 2RF gabapentin 800 mg tablet 800 mg PO TID Qty: 84 3RF Tresiba FlexTouch U-200 200 unit/mL (3 mL) insulin pen 95 unit subcut BEDTIME 30 Days Qty: 14.25 1RF cyanocobalamin (vitamin B-12) 1,000 mcg tablet 1,000 mcg PO DAILY 90 Days Qty: 90 1RF omeprazole 20 mg capsule,delayed release(DR/EC) 20 mg PO DAILY 90 Days Qty: 90 1RF FreeStyle Lite Strips Strip 1 strip miscellaneous QID Qty: 300 3RF escitalopram oxalate 20 mg tablet 10 mg PO DAILY Qty: 90 1RF albuterol sulfate [Proventil HFA] 90 mcg/actuation HFA aerosol inhaler 2 puff inhalation Q4-6H PRN (Reason: wheezing) Qty: 8.5 0RF (DME) Aerochamber Plus Z Stat Spacer See Rx Instructions .Route Qty: 1 0RF Rx Instructions: As directed tramadol 50 mg tablet 50 mg PO TID PRN (Reason: severe pain (scale score 7-10)) Qty: 15 0RF albuterol sulfate 90 mcg/actuation HFA aerosol inhaler 2 inh inhalation Q8H PRN (Reason: shortness of breath or wheezing) 30 Days Qty: 8.5 2RF meloxicam 15 mg tablet 15 mg PO DAILY Qty: 14 0RF buspirone 7.5 mg tablet 15 mg PO BID alpha lipoic acid 600 mg capsule 600 mg PO DAILY 30 Days Qty: 30 3RF Stand Alone Forms: Against Medical Advice
--- NOTE | 2022-09-26 21:36 | PC.NURSE ---
pt refusing iv for insulin and ivf at this time, primary rn and provider made aware
--- NOTE | 2022-09-26 21:54 | PC.NURSE ---
Pt declines having an IV placed. Offered to to have insulin SQ. Pt reports wanting go home . Dr Freeman notified.
[2022-09-27 07:42] LABS: C Reactive Protein 1.67 mg/dL (< or = 0.50)
== END 2022-09-26 22:10 | disposition left against medical advice (07) ==
PROVIDERS: Physician Assistant; Emergency Provider Emergency Medicine Emergency Medical Services; PCP Nurse Practitioner Family
DX: E11.65 Type 2 diabetes mellitus with hyperglycemia (principal); R10.32 Left lower quadrant pain; M54.50 Low back pain, unspecified; F17.210 Nicotine dependence, cigarettes, uncomplicated; Z71.6 Tobacco abuse counseling; Z79.899 Other long term (current) drug therapy; Z79.4 Long term (current) use of insulin
CPT/HCPCS: 36415; 74176; 80048; 80076; 81001; 82009; 83690; 83735; 85025; 86140; 87086; 87147; 96361; 96374; 96375; 99284

== ENCOUNTER 2022-12-08 10:58 | Emergency (ER) | payer OTHER, SELFPAY ==
[2022-12-08 11:03] VITALS: BP 111/85; BP 125/83; PULSE 101; PULSE 93; RESP 20; TEMP 37.4; O2SAT 97; O2SAT 98; BMI 42.9
[2022-12-08 12:03] VITALS: BP 135/76; PULSE 93; RESP 18; TEMP 37.4; O2SAT 94
--- NOTE | 2022-12-08 12:53 | ED.GENADULT ---
HPI - General Adult General Chief complaint: General Medical Stated complaint: L side facial droop, weakness, change in speech Time Seen by Provider: 12/08/22 11:06 History of Present Illness HPI narrative: Patient is a 52 old female presents today with having weakness to the left side of the face. Patient has a long history of diabetes. Elected to drink orange juice prior to arrival as she feels it is a very hot day and she feels very thirsty. There is no chest pain. There is no abdominal pain. There is no nausea no vomiting. Patient is from home. No cough no congestion or upper respiratory symptoms. Patient has a previous history of Hahn's. Denies any focal weakness in the upper lower extremity. Denies any clumsiness. Ambulated to the emergency department. Denies having any pets that go outside. Does not go into the meeks. Related Data Home Medications Medication Instructions Recorded Confirmed buspirone 7.5 mg tablet 15 mg PO BID 07/26/22 10/24/22 Previous Rx's Medication Instructions Recorded flash glucose scanning reader #1 ea 01/05/22 (nGAP Abdon 2 [place]) ergocalciferol (vitamin D2) 1,250 1,250 mcg PO QWEEK 90 days #13 caps 01/15/22 mcg (50,000 unit) capsule diabetic shoes #1 ea 03/07/22 levothyroxine 200 mcg tablet 200 mcg PO DAILY #90 tabs 03/09/22 ipratropium 0.5 mg-albuterol 3 mg 3 ml inhalation Q6-8H PRN wheezing 03/28/22 (2.5 mg base)/3 mL nebulization #90 mL soln albuterol sulfate 90 mcg/actuation 2 puff inhalation Q4-6H PRN 04/29/22 aerosol inhaler (Proventil HFA) wheezing #8.5 grams inhalational spacing device #1 ea 04/29/22 (Aerochamber Plus Z Stat spacer) insulin lispro 100 unit/mL 20 unit (0.2 mL) subcut TID #15 mL 05/04/22 subcutaneous pen (Humalog KwikPen (U-100) Insulin) fluticasone propionate 50 1 spray intranasal BID #16 grams 07/21/22 mcg/actuation nasal spray,suspension insulin degludec 200 unit/mL (3 95 unit (0.475 mL) subcut BEDTIME 08/10/22 mL) subcutaneous pen (Tresiba 30 days #14.25 mL FlexTouch U-200 insulin) cyanocobalamin (vitamin B-12) 1,000 mcg PO DAILY 90 days #90 tabs 09/13/22 1,000 mcg tablet omeprazole 20 mg capsule,delayed 20 mg PO DAILY 90 days #90 caps 09/13/22 release blood sugar diagnostic (FreeStyle 1 strip miscellaneous QID diabetes 09/19/22 Lite Strips) #300 strips escitalopram oxalate 20 mg tablet 10 mg PO DAILY #90 tabs 09/20/22 atorvastatin 40 mg tablet 40 mg PO DAILY 90 days #90 tabs 10/11/22 fluticasone propionate 100 1 inh PO BID #180 ea 10/11/22 mcg/actuation blister powder for inhalation (Flovent Diskus) gabapentin 800 mg tablet 800 mg PO TID #90 tabs 11/16/22 flash glucose sensor (FreeStyle #6 ea 11/17/22 Abdon 2 Sensor kit) prednisone 20 mg tablet 40 mg PO DAILY #10 tabs 12/08/22 Allergies Allergy/AdvReac Type Severity Reaction Status Date / Time doxycycline [DOXYCYCLINE] Allergy Severe THROAT Verified 10/24/22 13:32 SWELLING clindamycin [CLINDAMYCIN] Allergy Intermediate CHEST PAIN Verified 10/24/22 13:32 Sulfa (Sulfonamide Allergy Unknown makes her Verified 10/24/22 13:32 Antibiotics) sick, vomit trimethoprim [From BACTRIM] Allergy Unknown NAUSEA & Verified 10/24/22 13:32 VOMITING sulfamethoxazole AdvReac Mild NAUSEA & Verified 10/24/22 13:32 [From BACTRIM] VOMITING lisinopril Allergy Unknown headaches Uncoded 10/24/22 13:32 Review of Systems Review of Systems: No fever no chills no chest pain or shortness of breath Yes all other systems are reviewed and are negative PMFSH Past Medical History Attestation statement: The following information was validated with the patient. Medical History Anxiety B12 deficiency Cellulitis of buttock Depression Diabetes Hyperlipidemia Migraines Morbid obesity Sciatic leg pain Uncontrolled diabetes mellitus Surgical History H/O elbow surgery H/O thyroidectomy Hx of tubal ligation Family History Family History Father HTN (hypertension) CVD (cardiovascular disease) Diabetes mellitus Mental health disorder Mother Diabetes mellitus Uterine cancer COPD (chronic obstructive pulmonary disease) Mental health disorder Maternal Grandmother Breast cancer Paternal Aunt Breast cancer Brother No problems noted. Sister Substance use disorder Mental health disorder Sister No problems noted. Sister No problems noted. Daughter No problems noted. Son No problems noted. Son No problems noted. Son No problems noted. Son No problems noted. Son No problems noted. Son No problems noted. Social History Social History Household Members: Family Housing: Apartment Do you presently have visiting nurse or other home services: No Alcohol intake: never Patient Tobacco Use Status: Current everyday Tobacco user Tobacco use type: Cigarette Cigarettes Per Day: 10 Years Smoked: 20 e-Cigarette/Vaping Use: Currently Using Second Hand Smoke Exposure: No Advance Directives: No service: No Current occupational status: employed Current occupation: [employer] Cognitive needs: No Hearing needs: No Vision needs: No Physical Exam ED Vital Signs: Vital Signs - 24 hr 12/08/22 11:03 12/08/22 12:03 Temperature 99.3 F 99.4 F Pulse Rate 93 93 Respiratory Rate 20 18 Blood Pressure 125/83 135/76 Pulse Oximetry 97 94 Oxygen Delivery Method Room Air Room Air BMI result Body Mass Index 42.9 Appearance: Alert. Oriented X3. No acute distress. Eyes: Pupils equal, round and reactive to light. ENT: Pharynx normal. Neck: Normal inspection. Neck supple. No lymph nodes noted. No crepitus CVS: Normal heart rate and rhythm. Pulses normal. Normal S1 and S2 Respiratory: No respiratory distress. Breath sounds normal. No Wheezing. No rales Abdomen: Soft and nontender. No rigidity. No distention. good BS x4 Skin: Skin warm and dry. Normal skin color. Normal skin turgor. Extremities: No lower extremity edema. Neurovascular intact to all extremities. No Lacerations. No Rash Neuro: Oriented X 3. No motor deficit. No sensory deficit. Moving all extermities. No slurred speech. The patient has a facial nerve deficit on the left side. Voice is normal. Able to open eyes without any difficulty. Difficulty in closing the eye on the left side versus the right. Positive weakness over the entire side of the face. Good strength in the upper and lower extremity. Ambulated normally. 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 Lyme was sent. Patient has no risk for Lyme. Electrolytes showed no evidence of DKA patient's glucose however on the fingerstick was approximately 500. Given dose of insulin. Patient's electrolytes were done. Sugars already down to the 300s range. Will discharge patient home. Discussed with patient at length that prednisone can increase patient's glucose even further. Patient states understanding. And will be very careful in managing her diet. She is in stable condition. Will discharge home. Differential Diagnosis Differential Diagnoses: The differential diagnosis associated with the presentation includes Lab Data [facility] Lab Attestation statement: I reviewed the patient's lab results. 12/08/22 12:58 12/08/22 12:58 Labs: Lab Results 12/08/22 12/08/22 12/08/22 Range/Units 11:13 12:58 12:58 WBC 9.6 (4.8-10.8) X10*3/uL RBC 5.49 (4.20-5.50) X10*6/uL Hgb 16.4 H (12.0-16.0) g/dl Hct 46.4 (37.0-47.0) % MCV 84.5 (80.0-98.0) fL MCH 29.9 (27.0-33.0) pg MCHC 35.3 H (31.0-35.0) g/dl RDW 12.7 (11.0-16.0) % Plt Count 224 (160-400) X10*3/uL MPV 11.1 (9.4-12.3) fL Immature Gran % (Auto) 0.2 (0.0-0.4) % Neut % (Auto) 59.4 (45-73) % Lymph % (Auto) 29.9 (20-40) % [place] % (Auto) 7.1 (2-11) % Eos % (Auto) 2.3 (0-4) % Baso % (Auto) 1.1 (0-2) % Lymph # (Auto) 2.9 (1.2-4.9) X10*3/uL [place] # (Auto) 0.7 (0.1-1.2) X10*3/uL Eos # (Auto) 0.2 (0.0-0.4) X10*3/uL Baso # (Auto) 0.1 (0.0-0.2) X10*3/uL Abs Immat Gran (auto) 0.02 (0.00-0.03) X10*3/uL Absolute Neuts (auto) 5.7 (2.0-8.3) x10*3/uL Absolute Nucleated RBC 0.000 (0.0-0.012) X10*3/uL Nucleated RBC % (auto) 0.0 (0.0-0.2) /100WBC VBG pH (7.32-7.43) VBG pCO2 mmHg VBG pO2 mmHg VBG HCO3 (22-26) mmol/L VBG O2 Saturation % VBG Base Excess mmol/L Sodium 139 (135-145) mmol/L Potassium 4.0 (3.3-5.1) mmol/L Chloride 102 (96-108) mmol/L Carbon Dioxide 29 (22-29) mmol/L Anion Gap 12 (12-20) BUN 12 (9-16) mg/dL Creatinine 0.90 (0.5-1.4) mg/dL Estim Creat Clear Calc 92.4 Estimated GFR > 60 POC Glucose 482 H* (60-115) mg/dL Random Glucose 332 H (60-115) mg/dL Calcium 9.7 D (8.4-10.2) mg/dL 12/08/22 Range/Units 13:02 WBC (4.8-10.8) X10*3/uL RBC (4.20-5.50) X10*6/uL Hgb (12.0-16.0) g/dl Hct (37.0-47.0) % MCV (80.0-98.0) fL MCH (27.0-33.0) pg MCHC (31.0-35.0) g/dl RDW (11.0-16.0) % Plt Count (160-400) X10*3/uL MPV (9.4-12.3) fL Immature Gran % (Auto) (0.0-0.4) % Neut % (Auto) (45-73) % Lymph % (Auto) (20-40) % [place] % (Auto) (2-11) % Eos % (Auto) (0-4) % Baso % (Auto) (0-2) % Lymph # (Auto) (1.2-4.9) X10*3/uL [place] # (Auto) (0.1-1.2) X10*3/uL Eos # (Auto) (0.0-0.4) X10*3/uL Baso # (Auto) (0.0-0.2) X10*3/uL Abs Immat Gran (auto) (0.00-0.03) X10*3/uL Absolute Neuts (auto) (2.0-8.3) x10*3/uL Absolute Nucleated RBC (0.0-0.012) X10*3/uL Nucleated RBC % (auto) (0.0-0.2) /100WBC VBG pH 7.40 (7.32-7.43) VBG pCO2 50 mmHg VBG pO2 44 mmHg VBG HCO3 31 H (22-26) mmol/L VBG O2 Saturation 75.0 % VBG Base Excess 5.6 mmol/L Sodium (135-145) mmol/L Potassium (3.3-5.1) mmol/L Chloride (96-108) mmol/L Carbon Dioxide (22-29) mmol/L Anion Gap (12-20) BUN (9-16) mg/dL Creatinine (0.5-1.4) mg/dL Estim Creat Clear Calc Estimated GFR POC Glucose (60-115) mg/dL Random Glucose (60-115) mg/dL Calcium (8.4-10.2) mg/dL Discharge Plan Discharge Clinical Impression: Hahn palsy, Hyperglycemia Patient Disposition: Home, Self-Care Instructions: Hahn Palsy (ED), Diabetic Hyperglycemia (ED) Additional Instructions: Please monitor your sugars very carefully. Replace you on prednisone which can increase your sugar. Please be very cognizant of your diet. Prescriptions: New prednisone 20 mg tablet 40 mg PO DAILY Qty: 10 0RF No Action (DME) FreeStyle Abdon 2 [place]oit Misc See Rx Instructions .Route Qty: 1 4RF Rx Instructions: tid testing ergocalciferol (vitamin D2) 1,250 mcg (50,000 unit) capsule 1,250 mcg PO QWEEK 90 Days Qty: 13 3RF (DME) diabetic shoes See Rx Instructions .Route .MEDSUPPLY Qty: 1 0RF Rx Instructions: USE daily levothyroxine 200 mcg tablet 200 mcg PO DAILY Qty: 90 3RF ipratropium-albuterol 0.5 mg-3 mg(2.5 mg base)/3 mL solution for nebulization 3 ml inhalation Q6-8H PRN (Reason: wheezing) Qty: 90 0RF insulin lispro [Humalog KwikPen Insulin] 100 unit/mL insulin pen 20 unit subcut TID Qty: 15 0RF fluticasone propionate 50 mcg/actuation spray,suspension 1 spray intranasal BID Qty: 16 0RF Rx Instructions: administer into each nostril Tresiba FlexTouch U-200 200 unit/mL (3 mL) insulin pen 95 unit subcut BEDTIME 30 Days Qty: 14.25 1RF cyanocobalamin (vitamin B-12) 1,000 mcg tablet 1,000 mcg PO DAILY 90 Days Qty: 90 1RF omeprazole 20 mg capsule,delayed release(DR/EC) 20 mg PO DAILY 90 Days Qty: 90 1RF FreeStyle Lite Strips Strip 1 strip miscellaneous QID Qty: 300 3RF escitalopram oxalate 20 mg tablet 10 mg PO DAILY Qty: 90 1RF Flovent Diskus 100 mcg/actuation blister with device 1 inh PO BID Qty: 180 1RF atorvastatin 40 mg tablet 40 mg PO DAILY 90 Days Qty: 90 1RF gabapentin 800 mg tablet 800 mg PO TID Qty: 90 4RF (DME) FreeStyle Abdon 2 Sensor Kit See Rx Instructions .Route Qty: 6 1RF Rx Instructions: tid testing albuterol sulfate [Proventil HFA] 90 mcg/actuation HFA aerosol inhaler 2 puff inhalation Q4-6H PRN (Reason: wheezing) Qty: 8.5 0RF (DME) Aerochamber Plus Z Stat Spacer See Rx Instructions .Route Qty: 1 0RF Rx Instructions: As directed buspirone 7.5 mg tablet 15 mg PO BID Referrals: Adarsh Johnson, GEOPHYSICAL SUPPORT SPECIALIST-[facility] [Primary Care Provider] - 2 days
[2022-12-08 13:21] LABS: Anion Gap 12 (12-20); Blood Urea Nitrogen 12 mg/dL (9-16); Calcium 9.7 mg/dL (8.4-10.2); Carbon Dioxide 29 mmol/L (22-29); Chloride 102 mmol/L (96-108); Creatinine Clr Calc Pharmacy 92.4; Estimated Glomerular Filt Rate > 60; Glucose Random 332 mg/dL (60-115); Sodium 139 mmol/L (135-145)
--- NOTE | 2022-12-08 13:50 | PC.NURSE ---
Pt cleared for DC by ED provider; Pt verbalized understanding of all DC instructions at this time. Booking EMS.
[2022-12-12 21:58] LABS: Lyme Abs Screen <0.90 index
== END 2022-12-08 14:00 | disposition home or self-care (01) ==
PROVIDERS: Emergency Provider Emergency Medicine Emergency Medical Services; PCP Nurse Practitioner Family
DX: G51.0 Bell's palsy (principal); E11.65 Type 2 diabetes mellitus with hyperglycemia; F17.210 Nicotine dependence, cigarettes, uncomplicated; Z71.6 Tobacco abuse counseling; Z79.4 Long term (current) use of insulin; Z79.899 Other long term (current) drug therapy
CPT/HCPCS: 36415; 80048; 82803; 82947; 85025; 86617; 86618; 96361; 96374; 99283; 99284

== ENCOUNTER 2022-12-19 07:22 | Outpatient (AMB) | payer OTHER, SELFPAY ==
--- NOTE | 2022-12-19 07:30 | MHC.OFFVIS ---
Intake Vital Signs 12/19/22 07:36 Height 5 ft 5 in Weight 247 lb BMI 41.1 BP 112/62 Blood Pressure Location Rt brachial Position Sitting Pulse 87 Pulse Source Pulse Oximeter Pulse Oximetry (%) 97 Oxygen Delivery Method Room Air Intake Visit Reasons: Hahn's palsy (Lyft ride sched 7:00 pickup) Intake Note: NPV for [place] Palsy, patient states has been having tremors in hands and legs, legs being worse Personnel Research Psychologist Required: No Allergies doxycycline [DOXYCYCLINE] Allergy (Severe, Verified 12/19/22 07:31) THROAT SWELLING clindamycin [CLINDAMYCIN] Allergy (Intermediate, Verified 12/19/22 07:31) CHEST PAIN Sulfa (Sulfonamide Antibiotics) Allergy (Unknown, Verified 12/19/22 07:31) makes her sick, vomit trimethoprim [From BACTRIM] Allergy (Unknown, Verified 12/19/22 07:31) NAUSEA & VOMITING sulfamethoxazole [From BACTRIM] Adverse Reaction (Mild, Verified 12/19/22 07:31) NAUSEA & VOMITING lisinopril Allergy (Unknown, Uncoded 12/19/22 07:31) headaches Medication List - Last Reconciled 12/19/22 by Shana Mendez MD albuterol sulfate 90 mcg/actuation (Proventil HFA) 2 puffs inhalation Q4-6H PRN atorvastatin 40 mg PO DAILY 90 days blood sugar diagnostic (FreeStyle Lite Strips) 1 strip miscellaneous QID buspirone 15 mg PO BID cyanocobalamin (vitamin B-12) 1,000 mcg PO DAILY 90 days ergocalciferol (vitamin D2) 1,250 mcg PO QWEEK 90 days flash glucose scanning reader (FreeStyle Abdon 2 [place]) tid testing flash glucose sensor (FreeStyle Abdon 2 Sensor kit) tid testing fluticasone propionate 100 mcg/actuation (Flovent Diskus) 1 inh PO BID gabapentin 800 mg PO TID inhalational spacing device (Aerochamber Plus Z Stat spacer) As directed insulin degludec (Tresiba FlexTouch U-200 insulin) 95 units (0.475 mL) subcut BEDTIME 30 days insulin lispro (Humalog KwikPen (U-100) Insulin) 20 units (0.2 mL) subcut TID ipratropium-albuterol 0.5 mg-3 mg(2.5 mg base)/3 mL 3 mL inhalation Q6-8H PRN levothyroxine 200 mcg PO DAILY omeprazole 20 mg PO DAILY 90 days HPI HPI Comments History of Present Illness Details 52y/o female with diabetes comes for neurological evaluation . On December 08 2022 she woke up and felt her mouth felt numb. Later when she tried to drink coffee it was dribbling on the left side of her mouth and she noticed that she could not move the left side of the face, her left side was drooped, had difficulty speaking and closing her left eye. she denies any weakness in extremities.No worsening of her gait. she is not sure if she had double vision. she had headaches and pain behind her left ear and neck . No fever.she went to ER her blood glucose was 500 on finger stick. she denies any recent URI, denies TICK bites. 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 she had very mild residual weakness since then .Lyme titer was negative.she denies vertigo or hyperacousis. Her electrolytes were normal and her hyperglycemia was treated with insulin . she was discharged on prednisone . she has noticed improvement in her speech and left facial weakness. she also reports difficulty falling asleep, loud snoring, frequent arousals, hypersomnia.gasping arousals, generalized body shakes when she is trying to sleep. she also reports muscle weakness in her legs for past year, numbness in her feet. [facility] Medical History (Updated 12/19/22 @ 08:27 by Shana Mendez MD) Anxiety B12 deficiency Hahn's palsy Cellulitis of buttock Depression Diabetes Hyperlipidemia Hypersomnia Insomnia Migraines Morbid obesity Sciatic leg pain Snoring Uncontrolled diabetes mellitus Surgical History H/O elbow surgery H/O thyroidectomy Hx of tubal ligation Family History Father HTN (hypertension) CVD (cardiovascular disease) Diabetes mellitus Mental health disorder Mother Diabetes mellitus Uterine cancer COPD (chronic obstructive pulmonary disease) Mental health disorder Maternal Grandmother Breast cancer Paternal Aunt Breast cancer Brother No problems noted. Sister Substance use disorder Mental health disorder Sister No problems noted. Sister No problems noted. Daughter No problems noted. Son No problems noted. Son No problems noted. Son No problems noted. Son No problems noted. Son No problems noted. Son No problems noted. Social History Household Members: Family Housing: Apartment Do you presently have visiting nurse or other home services: No Alcohol intake: never Patient Tobacco Use Status: Current everyday Tobacco user Tobacco use type: Cigarette Cigarettes Per Day: 10 Years Smoked: 20 e-Cigarette/Vaping Use: Currently Using Second Hand Smoke Exposure: No Use of substances other than those prescribed or required for medical reasons: No service: No Current occupational status: employed Current occupation: [employer] Cognitive needs: No Hearing needs: No Vision needs: No Review of Systems Const Reports daytime sleepiness, Reports difficulty sleeping, Reports fatigue, Reports headache(s), Reports malaise, Reports snoring, Reports stops breathing during sleep and Reports weakness Eyes Reports blurry vision and Reports change in vision ENT Reports headache(s) Resp Reports snoring Musc Reports arthralgias, Reports muscle weakness, Reports numbness and Reports tingling Neuro Reports headache(s), Reports numbness, Reports tingling, Reports tremor(s) and Reports weakness Endo Reports fatigue Physical Exam Vital Signs: Last Vital Signs Pulse 87 12/19/22 07:36 BP 112/62 12/19/22 07:36 Pulse Ox 97 12/19/22 07:36 Oxygen Delivery Method Room Air 12/19/22 07:36 BMI result Body Mass Index 41.1 Const General: cooperative, healthy appearing and comfortable Nutritional Appearance: obese Orientation/consciousness: patient oriented x3 Eyes Pupils: Equal, round and reactive pupils present Neuro Other: Left LMN type of facial paralysis, difficulty wrinkling his left forehead, difficulty closing his left eye, flattening of left nasolabial fold, drooping on left angle of mouth , mouth deviated to right. Mild slurring of speech [place] grade 4 General: patient oriented x3, tone normal and moves all extremities Cranial nerves: Yes Facial sensation intact/muscles of mastication intact, Yes Equal, round and reactive pupils present, Yes Bilaterally intact EOM present, Yes Nystagmus not present and Yes Symmetric palate elevation present Cognition (Neuro): abnormal cognition Gait exam (Neuro): not antalgic Motor exam (neuro): Normal motor muscle tone present throughout and Other motor observations present (mild weakness of lower extremity ? poor effort) Deep tendon reflexes (DTR's): Right triceps reflex intensity grade: 1+, Left triceps reflex intensity grade: 1+, Rt Biceps (C5, C6): 1+, Left biceps reflex intensity grade: 1+, Right brachioradialis reflex intensity grade: 1+, Left brachioradialis reflex intensity grade: 1+, Right patellar reflex intensity grade: 0, Left patellar reflex intensity grade: 0, Right ankle reflex intensity grade: 0 and Left ankle reflex intensity grade: 0 Coordination: [id number] test normal Assessment & Plan Assessment & Plan (1) Hahn's palsy: Comment: likely related to poorly controlled diabetes Code(s): G51.0 - Hahn's palsy (2) Snoring: Code(s): R06.83 - Snoring (3) Hypersomnia: Code(s): G47.10 - Hypersomnia, unspecified (4) Insomnia: Code(s): G47.00 - Insomnia, unspecified (5) Lower extremity weakness: Code(s): R29.898 - Other symptoms and signs involving the musculoskeletal system Plan Discussed various risk factors for [place] palsy and counseled on good diabetic control . she has an appointment with Endocrinology I will refer her to PT for facial exercises. Suggested eye patch and artificial tears to avoid corneal irritation and dryness. I will schedule ehr for sleep study to r/o sleep apnea and possible sleep related movement disorder. Her lower extremity weakness is likely multifactorial? neuropathy ? lumbar spondylosis etc. will evaluate further during her next visit. Orders: Orders PT Evaluation and Treatment Today G51.0 - Hahn's palsy RT PSG in-lab sleep study Today G47.00 - Insomnia, unspecified, G47.10 - Hypersomnia, unspecified, R06.83 - Snoring AMB Hemoglobin A1c Today Z13.9 - Encounter for screening, unspecified Coding Level of Care Code New Pt Level 5 (76528) Diagnoses Hahn's palsy G51.0 Snoring R06.83 Hypersomnia G47.10 Insomnia G47.00 Lower extremity weakness R29.898
[2022-12-19 07:36] VITALS: BP 112/62; PULSE 87; O2SAT 97; BMI 41.1
== END 2022-12-19 08:27 | disposition home or self-care (01) ==
PROVIDERS: PCP Nurse Practitioner Family; Visit Provider Psychiatry & Neurology Neurology
DX: G51.0 Bell's palsy (principal); R06.83 Snoring; G47.10 Hypersomnia, unspecified; G47.00 Insomnia, unspecified; R29.898 Other symptoms and signs involving the musculoskeletal system
CPT/HCPCS: 99204

== ENCOUNTER → 2022-12-19 07:22 | Outpatient (BNVA) | payer OTHER, SELFPAY | PROVIDERS: PCP Nurse Practitioner Family; Visit Provider Psychiatry & Neurology Neurology | DX: G51.0 Bell's palsy (principal); R06.83 Snoring; G47.10 Hypersomnia, unspecified; G47.00 Insomnia, unspecified | CPT/HCPCS: 99202 ==

== ENCOUNTER 2023-08-02 14:57 | Emergency (ER) | payer OTHER, SELFPAY ==
--- NOTE | ~2023-08-02 | CT_ITS ---
EXAMINATION: CT CHEST WITHOUT CONTRAST CLINICAL INFORMATION: Fall. Right-sided rib pain COMPARISON: None available. TECHNIQUE: Multidetector volumetric CT imaging of the chest was done. Axial MIP volume rendering provided. Sagittal and coronal reformatted images were obtained. This CT examination was performed using dose optimization techniques as appropriate, variously including the following: *Automated exposure control *Adjustment of mA and/or kV according to patient size (this includes techniques or standardized protocols for targeted exams where dose is matched to indication/reason for exam; i.e. extremities or head) *Use of iterative reconstruction technique DLP: 570 mGy-cm FINDINGS: SPOOL CARRIER: No mediastinal widening. No focal parenchymal abnormality. The diaphragm contour is smooth. There are osteophytes in the spine LUNGS: No suspicious abnormality of the central airways. No evidence of lung injury. No suspicious mass MEDIASTINUM: There is no evidence of a mediastinal hematoma. There are no enlarged lymph nodes. There is no suspicious abnormality the esophagus. Surgical clips in the expected region of thyroid CORONARY ARTERY CALCIFICATION: None visualized on this study. PLEURA: There is no pleural effusion. There is no pneumothorax demonstrated. No pleural mass or thickening. AXILLA: No lymphadenopathy. UPPER ABDOMEN: No suspicious abnormality. OSSEOUS STRUCTURES: No acute displaced rib fracture. Extensive osteophytes in the mid and lower thoracic spine. This may be a rigid segment. CT/CT chest wo IV con IMPRESSION: No mediastinal hematoma, pneumothorax or hemothorax. No evidence of pulmonary injury. No acute displaced right rib fracture demonstrated Fleischner guidelines were followed.
--- NOTE | ~2023-08-02 | XR_ITS ---
EXAMINATION: XR RIBS, RIGHT CLINICAL INFORMATION: Slip and fall, pain COMPARISON: Frontal view of the chest 04/29/22 TECHNIQUE: Frontal view of the chest 3 views of the right ribs were obtained. FINDINGS: Chest: No mediastinal widening. Cardiac size, aguilar, vasculature, lungs and visualized pleural margins are within normal limits. Specifically, there is no pneumothorax Right RIBS: There is no acute displaced rib fracture. No focal bone lesion or pleural-based soft tissue abnormality. XR/XR ribs RT min 3V w CXR1V IMPRESSION: No mediastinal widening, focal parenchymal abnormality or pneumothorax. No acute displaced rib fracture.
[2023-08-02 15:02] VITALS: BP 175/115; PULSE 102; RESP 18; TEMP 36.4; O2SAT 97; BMI 36.9
--- NOTE | 2023-08-02 15:02 | ED_ITS ---
HPI - General Adult General Chief complaint: Fall Stated complaint: Fall 08/01/23 - rib injury Time Seen by Provider: 08/02/23 15:53 Source: patient Mode of arrival: ambulatory Limitations: no limitations Related Data Home Medications Medication Instructions Recorded Confirmed buspirone 7.5 mg tablet 15 mg PO BID 07/26/22 12/19/22 Previous Rx's Medication Instructions Recorded flash glucose scanning reader #1 ea 01/05/22 (FreeStyle Abdon 2 [place]) ipratropium 0.5 mg-albuterol 3 mg 3 ml inhalation Q6-8H PRN wheezing 03/28/22 (2.5 mg base)/3 mL nebulization #90 mL soln albuterol sulfate 90 mcg/actuation 2 puff inhalation Q4-6H PRN 04/29/22 aerosol inhaler (Proventil HFA) wheezing #8.5 grams inhalational spacing device #1 ea 04/29/22 (Aerochamber Plus Z Stat spacer) cyanocobalamin (vitamin B-12) 1,000 mcg PO DAILY 90 days #90 tabs 09/13/22 1,000 mcg tablet blood sugar diagnostic (FreeStyle 1 strip miscellaneous QID diabetes 09/19/22 Lite Strips) #300 strips atorvastatin 40 mg tablet 40 mg PO DAILY 90 days #90 tabs 10/11/22 fluticasone propionate 100 1 inh PO BID #180 ea 10/11/22 mcg/actuation blister powder for inhalation (Flovent Diskus) flash glucose sensor (FreeStyle #6 ea 11/17/22 Abdon 2 Sensor kit) ergocalciferol (vitamin D2) 1,250 1,250 mcg PO QWEEK 90 days #13 caps 01/18/23 mcg (50,000 unit) capsule insulin degludec 200 unit/mL (3 95 unit (0.475 mL) subcut BEDTIME 01/18/23 mL) subcutaneous pen (Tresiba #45 mL FlexTouch U-200 insulin) insulin lispro 100 unit/mL 20 unit (0.2 mL) subcut TID #60 mL 01/18/23 subcutaneous pen (Humalog KwikPen (U-100) Insulin) levothyroxine 200 mcg tablet 200 mcg PO DAILY #90 tabs 01/18/23 omeprazole 20 mg capsule,delayed 20 mg PO DAILY 90 days #90 caps 03/23/23 release gabapentin 800 mg tablet 800 mg PO TID #90 tabs 04/24/23 ketorolac 10 mg tablet 10 mg PO TID PRN pain 5 days #15 08/02/23 tabs lidocaine 5 % topical patch 1 patch topical DAILY PRN pain #15 08/02/23 ea Allergies Allergy/AdvReac Type Severity Reaction Status Date / Time doxycycline [DOXYCYCLINE] Allergy Severe THROAT Verified 12/19/22 07:31 SWELLING clindamycin [CLINDAMYCIN] Allergy Intermediate CHEST PAIN Verified 12/19/22 07:31 Sulfa (Sulfonamide Allergy Unknown makes her Verified 12/19/22 07:31 Antibiotics) sick, vomit trimethoprim [From BACTRIM] Allergy Unknown NAUSEA & Verified 12/19/22 07:31 VOMITING sulfamethoxazole AdvReac Mild NAUSEA & Verified 12/19/22 07:31 [From BACTRIM] VOMITING lisinopril Allergy Unknown headaches Uncoded 12/19/22 07:31 Review of Systems Review of Systems: Yes all other systems are reviewed and are negative [facility] Past Medical History Attestation statement: The following information was validated with the patient. Source: old records reviewed and nursing notes reviewed Medical History Insomnia Hypersomnia Snoring Hahn's palsy Cellulitis of buttock Uncontrolled diabetes mellitus Sciatic leg pain B12 deficiency Hyperlipidemia Morbid obesity Migraines Depression Anxiety Diabetes Surgical History H/O elbow surgery Hx of tubal ligation H/O thyroidectomy Family History Family History Father HTN (hypertension) CVD (cardiovascular disease) Diabetes mellitus Mental health disorder Mother Diabetes mellitus Uterine cancer COPD (chronic obstructive pulmonary disease) Mental health disorder Maternal Grandmother Breast cancer Paternal Aunt Breast cancer Brother No problems noted. Sister Substance use disorder Mental health disorder Sister No problems noted. Sister No problems noted. Daughter No problems noted. Son No problems noted. Son No problems noted. Son No problems noted. Son No problems noted. Son No problems noted. Son No problems noted. Social History Social History Household Members: Family Housing: Apartment Do you presently have visiting nurse or other home services: No Alcohol intake: never Patient Tobacco Use Status: Current everyday Tobacco user Tobacco use type: Cigarette Cigarettes Per Day: 10 Years Smoked: 20 e-Cigarette/Vaping Use: Currently Using Second Hand Smoke Exposure: No Advance Directives: No Advance Directives Information Provided: No service: No Current occupational status: employed Current occupation: [employer] Cognitive needs: No Hearing needs: No Vision needs: No Physical Exam ED Vital Signs: Vital Signs - 24 hr 08/02/23 15:02 Temperature 97.5 F Pulse Rate 102 H Respiratory Rate 18 Blood Pressure 175/115 H Pulse Oximetry 97 Oxygen Delivery Method Room Air BMI result Body Mass Index 36.9 htn, tachycardia Noncompliant of blood pressure medicine. Appearance: Alert.? Oriented X3.? No acute distress.? Head: Normocephalic, atraumatic, no step-offs or deformities Eyes: Pupils equal, round and reactive to light.? ENT: Pharynx normal.? Neck: Normal inspection.? Neck supple.? CVS: Normal heart rate and rhythm.? Pulses normal.?+ TTP to lateral aspect of right ribs throughout, no signs of flail chest, no paradoxical breathing, no crepitus. Respiratory: No respiratory distress.? Breath sounds normal.? Abdomen: Soft and nontender.? Skin: Skin warm and dry.? Normal skin color.? Normal skin turgor.? Extremities: No lower extremity edema.? No calf ttp. 5/5 strength to bilateral upper and lower extremities + tenderness to palpation to right trapezius region with overlying excoriations. No signs of cellulitis erythema, warmth or abscess. Neuro: Oriented X 3.? No motor deficit.? No sensory deficit. CN 2-12 intact Course Course Course Narrative: This is a rapid medical exam: Additional HPI, ROS, PE not included below will be deferred to primary provider. Patient is a 52-year-old female with history of DM, hypothyroid, SI joint dysfunction presenting to the ED with complaint of right sided rib pain. States she fell around 7 or 8 pm last night, slipped in a mud puddle. Denies head strike or loss of consciousness. She is not anticoagulated. Also complains of bumps on back with burning pain for the past month. Scattered scabs with areas of excoriation noted. States she is not compliant with her BP medication. Plan: x-ray Reevaluation(s) Reevaluation #1: Patient did start to complain of right trapezius pain, she did mention this to triage provider. tenderness to palpation to right trapezius region with overlying excoriations. No signs of cellulitis erythema, warmth or abscess. This is likely musculoskeletal pain/spasm. CT chest no mediastinal hematoma, pneumothorax or hemothorax. No evidence of pulmonary injury. No acute displaced right rib fracture demonstrated. X-ray of ribs was unremarkable but due to specificity of test I did decide to order CT scan. Patient to be discharged home with Toradol as well as Lidoderm patch. Educated patient on diagnosis and treatment plan, answered all question, patient verbalizes understanding. At this time patient will be discharged home, advised to return with new or worsening symptoms. Educated on worrisome signs and symptoms and when to return. At this time I feel comfortable discharge home. Time: 18:35 Medications Administered Discontinued Medications Generic Name Dose Route Start Last Admin Trade Name Delfinoq PRN Reason Stop Dose Admin Ketorolac Tromethamine 30 mg 08/02/23 17:42 08/02/23 17:58 Ketorolac Tromethamine 30 Mg/Ml Vial IM 08/02/23 17:43 30 mg ONCE ONE Administration Lidocaine 1 patch 08/02/23 17:42 08/02/23 17:57 Lidocaine 4 % Patch Adh..Patch TRANSDERMA 08/02/23 17:43 1 patch ONCE ONE Administration Protocol Medical Decision Making Medical Decision Making MDM Narrative: 52-year-old female presents status post slip and fall onto right side of ribs fell last night. Complaining of significant pain to the right side. On exam there is tenderness to palpation to the lateral aspect of right ribs throughout. No overlying skin changes. No signs of flail chest. Normoactive breath sounds Will rule out rib fractures, dislocation. Unlikely pneumothorax acute respiratory failure, flail chest. No signs of acute respiratory distress Plan at this time imaging. Differential Diagnosis Differential Diagnoses: The differential diagnosis associated with the presentation includes Will rule out rib fractures, dislocation. Unlikely pneumothorax acute respiratory failure, flail chest. No signs of acute respiratory distress Admission/Observation Consideration of admission/observation: Escalation of care including admission/observation considered unlikely Independent Interpretation I performed an independent interpretation of an: Plain X-Ray Radiology Impression Discussion of test interpretation with radiology: I have reviewed the radiologist's reading. Critical Care Time Critical Care Time Critical Care Time: No Discharge Plan Discharge Clinical Impression: Trapezius muscle spasm, Pain in rib, Fall Patient Disposition: Home, Self-Care Instructions: Muscle Spasm (ED), Fall Prevention (ED) Additional Instructions: Take your medications as prescribed. If you were prescribed antibiotics today, it is important that you take your medication to their entirety, do not skip any doses, do not finish them early. Follow-up with your primary care provider this week. Return to the emergency department with new or worsening symptoms. Such as fevers, chills, chest pain, shortness of breath, nausea, vomiting, dizziness, headache, vision changes, lethargy In case of emergency call 911 Toradol has been sent to your pharmacy, you tolerated this well in the department. Please take this as prescribed do not take this with blood thinners, ibuprofen, or other NSAIDs, do not mix this with alcohol. Side effects of this medication including increased risk for bleeding and possible kidney injury. CT/CT chest wo IV con IMPRESSION: No mediastinal hematoma, pneumothorax or hemothorax. No evidence of pulmonary injury. No acute displaced right rib fracture demonstrated Fleischner guidelines were followed. Prescriptions: New ketorolac 10 mg tablet 10 mg PO TID PRN (Reason: pain) 5 Days Qty: 15 0RF lidocaine 5 % adhesive patch,medicated 1 patch topical DAILY PRN (Reason: pain) Qty: 15 0RF Rx Instructions: leave on most painful area for up to 12 hrs No Action (DME) FreeStyle Abdon 2 [place] Misc See Rx Instructions .Route Qty: 1 4RF Rx Instructions: tid testing ipratropium-albuterol 0.5 mg-3 mg(2.5 mg base)/3 mL solution for nebulization 3 ml inhalation Q6-8H PRN (Reason: wheezing) Qty: 90 0RF cyanocobalamin (vitamin B-12) 1,000 mcg tablet 1,000 mcg PO DAILY 90 Days Qty: 90 1RF FreeStyle Lite Strips Strip 1 strip miscellaneous QID Qty: 300 3RF Flovent Diskus 100 mcg/actuation blister with device 1 inh PO BID Qty: 180 1RF atorvastatin 40 mg tablet 40 mg PO DAILY 90 Days Qty: 90 1RF (DME) FreeStyle Abdon 2 Sensor Kit See Rx Instructions .Route Qty: 6 1RF Rx Instructions: tid testing levothyroxine 200 mcg tablet 200 mcg PO DAILY Qty: 90 0RF Rx Instructions: Future refills pending lab results ergocalciferol (vitamin D2) 1,250 mcg (50,000 unit) capsule 1,250 mcg PO QWEEK 90 Days Qty: 13 0RF Rx Instructions: Future refills pending lab results Tresiba FlexTouch U-200 200 unit/mL (3 mL) insulin pen 95 unit subcut BEDTIME Qty: 45 0RF Rx Instructions: Future refills pending lab results insulin lispro [Humalog KwikPen Insulin] 100 unit/mL insulin pen 20 unit subcut TID Qty: 60 0RF Rx Instructions: Future refills pending lab results omeprazole 20 mg capsule,delayed release(DR/EC) 20 mg PO DAILY 90 Days Qty: 90 1RF gabapentin 800 mg tablet 800 mg PO TID Qty: 90 4RF albuterol sulfate [Proventil HFA] 90 mcg/actuation HFA aerosol inhaler 2 puff inhalation Q4-6H PRN (Reason: wheezing) Qty: 8.5 0RF (DME) Aerochamber Plus Z Stat Spacer See Rx Instructions .Route Qty: 1 0RF Rx Instructions: As directed buspirone 7.5 mg tablet 15 mg PO BID Referrals: Adarsh Johnson, [employer] [Primary Care Provider] - 2 days
[2023-08-02] MEDS: Lidocaine 4 % Patch ADH..PATCH 1 PATCH TRANSDERMA (17:57)
[2023-08-02] MEDS: Ketorolac Tromethamine 30 MG/ML VIAL IM (17:58)
== END 2023-08-02 18:54 | disposition home or self-care (01) ==
PROVIDERS: Emergency Provider Emergency Medicine; PCP Nurse Practitioner Family
DX: M62.830 Muscle spasm of back (principal); R07.81 Pleurodynia; F17.210 Nicotine dependence, cigarettes, uncomplicated
CPT/HCPCS: 71101; 71250; 96372; 99283; 99284; J1885

== ENCOUNTER 2023-08-13 12:59 | Outpatient (AMB) | payer OTHER, SELFPAY ==
--- NOTE | 2023-08-13 13:07 | AM.OFFWIN_ITS ---
Intake Vital Signs 08/13/23 13:08 08/13/23 13:29 Weight 225 lb BP 170/120 H 172/98 H Blood Pressure Location Rt brachial Rt brachial Position Sitting Sitting Pulse 96 Pulse Source Pulse Oximeter Pulse Oximetry (%) 98 Oxygen Delivery Method Room Air Intake Visit Reasons: EP RT side rib pain/BP Intake Note: Patient here for right sided rib pain, pt states she had a fall a few weeks ago. pt states she went to ED for the rib pain but was told her BP was dangerously high Patient Tobacco Use Status: Current everyday Tobacco user Allergies doxycycline [DOXYCYCLINE] Allergy (Severe, Verified 08/13/23 13:59) THROAT SWELLING clindamycin [CLINDAMYCIN] Allergy (Intermediate, Verified 08/13/23 13:59) CHEST PAIN Sulfa (Sulfonamide Antibiotics) Allergy (Unknown, Verified 08/13/23 13:59) makes her sick, vomit trimethoprim [From BACTRIM] Allergy (Unknown, Verified 08/13/23 13:59) NAUSEA & VOMITING sulfamethoxazole [From BACTRIM] Adverse Reaction (Mild, Verified 08/13/23 13:59) NAUSEA & VOMITING lisinopril Allergy (Unknown, Uncoded 08/13/23 13:59) headaches Medication List - Last Reconciled 08/13/23 by Dino Stone MD albuterol sulfate 90 mcg/actuation (Proventil HFA) 2 puffs inhalation Q4-6H PRN atorvastatin 40 mg PO DAILY 90 days blood sugar diagnostic (FreeStyle Lite Strips) 1 strip miscellaneous QID buspirone 15 mg PO BID cyanocobalamin (vitamin B-12) 1,000 mcg PO DAILY 90 days cyclobenzaprine 10 mg PO BEDTIME ergocalciferol (vitamin D2) 1,250 mcg PO QWEEK 90 days flash glucose scanning reader (FreeStyle Abdon 2 [place]) tid testing flash glucose sensor (FreeStyle Abdon 2 Sensor kit) tid testing fluticasone propionate 100 mcg/actuation (Flovent Diskus) 1 inh PO BID gabapentin 800 mg PO TID inhalational spacing device (Aerochamber Plus Z Stat spacer) As directed insulin degludec (Tresiba FlexTouch U-200 insulin) 95 units (0.475 mL) subcut BEDTIME insulin lispro (Humalog KwikPen (U-100) Insulin) 20 units (0.2 mL) subcut TID ipratropium-albuterol 0.5 mg-3 mg(2.5 mg base)/3 mL 3 mL inhalation Q6-8H PRN ketorolac 10 mg PO TID PRN 5 days levothyroxine 200 mcg PO DAILY lidocaine 5% 1 patch topical DAILY PRN omeprazole 20 mg PO DAILY 90 days valsartan 80 mg PO DAILY Do you need a note to return to daycare/school/sports/work: No HPI EP RT side rib pain/BP HPI Details 52-year-old female presents to the [facility] for a sick visit. She has multiple complaints. Patient was in the emergency room a few weeks ago with rib pain. Pain was on the right side of the chest. X-rays were unremarkable but she was told her blood pressure was high. No medication was started. Patient has not been checking her blood pressures. She is now experiencing in addition to the symptoms, pain on the right side of her upper back. She has a rash on the skin and attributes the pain to it. No shortness of breath or nausea. [facility] Medical History (Updated 08/13/23 @ 14:05 by Dino Stone MD) Essential hypertension Insomnia Hypersomnia Snoring Hahn's palsy Cellulitis of buttock Uncontrolled diabetes mellitus Sciatic leg pain B12 deficiency Hyperlipidemia Morbid obesity Migraines Depression Anxiety Diabetes Surgical History H/O elbow surgery Hx of tubal ligation H/O thyroidectomy Family History Father HTN (hypertension) CVD (cardiovascular disease) Diabetes mellitus Mental health disorder Mother Diabetes mellitus Uterine cancer COPD (chronic obstructive pulmonary disease) Mental health disorder Maternal Grandmother Breast cancer Paternal Aunt Breast cancer Brother No problems noted. Sister Substance use disorder Mental health disorder Sister No problems noted. Sister No problems noted. Daughter No problems noted. Son No problems noted. Son No problems noted. Son No problems noted. Son No problems noted. Son No problems noted. Son No problems noted. Social History Household Members: Family Housing: Apartment Do you presently have visiting nurse or other home services: No Alcohol intake: never Patient Tobacco Use Status: Current everyday Tobacco user Tobacco use type: Cigarette Cigarettes Per Day: 10 Years Smoked: 20 e-Cigarette/Vaping Use: Currently Using Second Hand Smoke Exposure: No service: No Current occupational status: employed Current occupation: [employer] Cognitive needs: No Hearing needs: No Vision needs: No Physical Exam Vital Signs: Last Vital Signs Pulse 96 08/13/23 13:08 BP 172/98 H 08/13/23 13:29 Pulse Ox 98 08/13/23 13:08 Oxygen Delivery Method Room Air 08/13/23 13:08 Const Other: 52-year-old female with increased body mass index in no acute distress. General: cooperative and healthy appearing Nutritional Appearance: well nourished Orientation/consciousness: patient oriented x3 Limitations: no limitations HEENT Head: Yes normal to inspection Eyes General: appearance normal, both eyes and all related structures Neck Neck: Yes normal visual inspection Chest Other: Skin: Few papules on the back. No vesicles or pustules. Chest palpation & inspection: normal palpation of entire chest wall Resp Effort & Inspection: normal respiratory effort Neuro General: patient oriented x3 Office Procedures EKG Details: Normal sinus rhythm. 19825-[id number], Complete Assessment & Plan Assessment & Plan (1) Essential hypertension: Code(s): I10 - Essential (primary) hypertension Plan: Blood pressure is consistently elevated. Valsartan has been added to the regimen. EKG was reviewed. Muscle relaxant added to the regimen. The rash is inconsequential. Orders: Orders AMB EKG-In Office Today R07.9 - Chest pain, unspecified Medications: New valsartan 80 mg PO DAILY 30 tabs 0RF cyclobenzaprine 10 mg PO BEDTIME 14 tabs 0RF Coding Level of Care Code Est Pt Level 4 (12246) Diagnoses Essential hypertension I10 CPT Codes EKG - CPT: 98740-[id number], Complete ([id number])
[2023-08-13 13:08] VITALS: BP 170/120; PULSE 96; O2SAT 98
[2023-08-13 13:29] VITALS: BP 172/98
== END 2023-08-13 15:20 | disposition home or self-care (01) ==
PROVIDERS: PCP Nurse Practitioner Family; Visit Provider Internal Medicine
DX: I10 Essential (primary) hypertension (principal)
CPT/HCPCS: 93000; 99214

== ENCOUNTER 2023-08-13 13:54 | Outpatient (REF) | payer OTHER, SELFPAY ==
[2023-08-13 16:20] LABS: MANUAL DIFF FLAG NO
[2023-08-13 16:23] LABS: Basophils Absolute Auto 0.1 X10*3/uL (0.0-0.2); Basophils Percent Auto 1.3 % (0-2); Eosinophils Absolute Auto 0.3 X10*3/uL (0.0-0.4); Eosinophils Percent Auto 2.9 % (0-4); Hematocrit 46.9 % (37.0-47.0); Hemoglobin 16.5 g/dl (12.0-16.0); Imm Gran Abs Auto 0.03 X10*3/uL (0.00-0.03); Imm Gran Pct Auto 0.3 % (0.0-0.4); Lymphocytes Absolute Auto 2.8 X10*3/uL (1.2-4.9); Lymphocytes Percent Auto 31.1 % (20-40); Mean Corpuscular HGB Conc 35.2 g/dl (31.0-35.0); Mean Corpuscular Volume 85.3 fL (80.0-98.0); Mean Platelet Volume 11.1 fL (9.4-12.3); Monocytes Absolute Auto 0.5 X10*3/uL (0.1-1.2); Monocytes Percent Auto 5.6 % (2-11); Neutrophils Absolute Auto 5.3 x10*3/uL (2.0-8.3); Neutrophils Percent Auto 58.8 % (45-73); Platelet Count 306 X10*3/uL (160-400); Red Cell Distribution Width 13.2 % (11.0-16.0)
[2023-08-13 16:29] LABS: Appearance Urine Clear; Color Urine Yellow; Glucose Urine UA >=1000 mg/dL (Negative); Leukocyte Esterase Urine Negative (Negative); Nitrite Urine Negative (Negative); Specific Gravity - Urine >= 1.030 (1.005-1.025); UMIC TRIGGER UACC YES; Urine Blood Small (1+) (Negative); Urine Ketones Negative (Negative); Urine Protein 100 (2+) mg/dL (Neg-Trace)
[2023-08-13 16:35] LABS: Estimated Average Glucose 321 mg/dL; Hemoglobin A1c % 12.8 % (<6.0)
[2023-08-13 16:44] LABS: Alanine Aminotransferase 14 U/L (0-31); Albumin Level 3.9 g/dL (3.5-5.0); Alkaline Phosphatase 101 U/L (39-117); Anion Gap 13 (12-20); Aspartate Amino Transferase 25 U/L (5-31); Bilirubin Total 0.4 mg/dL (0.0-1.0); Blood Urea Nitrogen 17 mg/dL (9-16); Calcium 9.4 mg/dL (8.4-10.2); Carbon Dioxide 31 mmol/L (22-29); Chloride 95 mmol/L (96-108); Cholesterol 184 mg/dL (<200); Estimated Glomerular Filt Rate 55; HDL Cholesterol 59 mg/dL (>40); LDL Cholesterol Calculated 92 mg/dL (<100); Potassium 3.9 mmol/L (3.3-5.1); Sodium 135 mmol/L (135-145); Total Protein 8.2 g/dL (6.5-8.0); Triglycerides 168 mg/dL (<150)
[2023-08-13 17:06] LABS: Creatinine Urine 49.17 mg/dL; Microalbum/Creatinine Ratio Ur 795.2 ug/mg cr (<30)
[2023-08-13 17:13] LABS: Vitamin B12 696 pg/mL (200-900)
[2023-08-13 17:14] LABS: TSH reflex Free T4 > 100.00 uIU/mL (0.32-4.0); Vitamin D 25-OH Total 24.8 ng/mL (>30)
[2023-08-13 17:22] LABS: Glucose Fasting 449 mg/dL (60-99)
[2023-08-13 18:29] LABS: Free T4 (Free Thyroxine) < 0.42 ng/dL (0.71-1.85)
[2023-08-13 18:53] LABS: Bacteria Urine 1+ (None Seen); Hyaline Casts Urine 0-2 /LPF (0-2); UACC Culture Trigger YES
== END 2023-08-13 13:55 | disposition home or self-care (01) ==
LOC: HO.HMGCLDS 13:54
PROVIDERS: PCP Nurse Practitioner Family; Visit Provider Nurse Practitioner Family
DX: Z00.00 Encounter for general adult medical examination without abnormal findings (principal); E55.9 Vitamin D deficiency, unspecified; E53.8 Deficiency of other specified B group vitamins; E11.65 Type 2 diabetes mellitus with hyperglycemia
CPT/HCPCS: 36415; 80053; 80061; 81001; 82043; 82306; 82570; 82607; 82746; 83036; 84439; 84443; 85025; 87086; 87147

== ENCOUNTER 2023-08-16 16:26 | Outpatient (AMB) | payer OTHER, SELFPAY ==
[2023-08-16 16:29] VITALS: BP 160/88; PULSE 97; O2SAT 98; BMI 38.3
--- NOTE | 2023-08-16 16:29 | MHC.PC.OV ---
Vital Signs 08/16/23 16:29 Height 5 ft 5 in Weight 230 lb BMI 38.3 BP 160/88 H Blood Pressure Location Rt brachial Position Sitting Pulse 97 Pulse Source Pulse Oximeter Pulse Oximetry (%) 98 Oxygen Delivery Method Room Air Intake Visit Reasons: PE Intake Note: Pt is here for her Annual PE Pt is due for a PAP and needs a referral pt needs a referral for a colon screening Allergies doxycycline [DOXYCYCLINE] Allergy (Severe, Verified 08/16/23 16:32) THROAT SWELLING clindamycin [CLINDAMYCIN] Allergy (Intermediate, Verified 08/16/23 16:32) CHEST PAIN Sulfa (Sulfonamide Antibiotics) Allergy (Unknown, Verified 08/16/23 16:32) makes her sick, vomit trimethoprim [From BACTRIM] Allergy (Unknown, Verified 08/16/23 16:32) NAUSEA & VOMITING sulfamethoxazole [From BACTRIM] Adverse Reaction (Mild, Verified 08/16/23 16:32) NAUSEA & VOMITING lisinopril Allergy (Unknown, Uncoded 08/16/23 16:32) headaches Tobacco use date assessed: 08/16/23 Dental Screening Dental Screen Date: 08/16/23 Did you have a dental visit in the last 12 months?: No Did you have a dental problem in the last 6 months where you did not have access to dental care?: No Was dental information given to patient?: No HPI PE HPI Details Pt is here for a PE. was recently, homeless, now has a place to live. Labs were already performed. Due for colon screen, will refer to GI. . Due for mammo, will order. She does not have a quality technician, will refer. Pt is an uncontrolled diabetic, on an ARB and a statin. Last A1C was 12.8. Microalbumin is up to date, referring to nephro. + polyuria and polydipsia, does report neuropathy as well. Pt denies any signs and symptoms of hypoglycemia and does know how to correct it. Pt has not been taking her insulin. Will resend these. Will also start low-dose ozempic. Explained to pt that her blood sugar is dangerously uncontrolled (though last glucose was not fasting). Reenforced the importance of med compliance. Due for eye exam, will refer. Pt just restarted her levothyroxine, will recheck levels in 2 months. HTN: Blood pressure is managed with valsartan 80mg. Pt reports recently restarting this med. Will have pt come in for a nurse visit for BP check in 2-3 weeks. Denies chest pain, shortness of breath, headache, and blurred vision. She does report intermittent dizziness. Micro hem noted on recent UA. Will order CT urogram, urine culture, and cytology. Will also refer to urology. Pt is a smoker, has been smoking up to 1.5 packs per day since age 15. referring for LDCTs. Will repeat labs in 2 months. [facility] Medical History (Updated 08/16/23 @ 17:38 by LATOYA Stokes) Essential hypertension Insomnia Hypersomnia Snoring Hahn's palsy Cellulitis of buttock Uncontrolled diabetes mellitus Sciatic leg pain B12 deficiency Hyperlipidemia Morbid obesity Migraines Depression Anxiety Diabetes Surgical History H/O elbow surgery Hx of tubal ligation H/O thyroidectomy Family History Father HTN (hypertension) CVD (cardiovascular disease) Diabetes mellitus Mental health disorder Mother Diabetes mellitus Uterine cancer COPD (chronic obstructive pulmonary disease) Mental health disorder Maternal Grandmother Breast cancer Paternal Aunt Breast cancer Brother No problems noted. Sister Substance use disorder Mental health disorder Sister No problems noted. Sister No problems noted. Daughter No problems noted. Son No problems noted. Son No problems noted. Son No problems noted. Son No problems noted. Son No problems noted. Son No problems noted. Social History Household Members: Family Housing: Apartment Do you presently have visiting nurse or other home services: No Alcohol intake: never Patient Tobacco Use Status: Current everyday Tobacco user Tobacco use type: Cigarette Cigarettes Per Day: 10 Years Smoked: 20 e-Cigarette/Vaping Use: Never Used Second Hand Smoke Exposure: No service: No Current occupational status: disabled Current occupation: [employer] Cognitive needs: No Hearing needs: No Vision needs: Yes Questionnaire PHQ-9 Over the last 2 weeks, how often have you been bothered by any of the following problems? 1. Little interest or pleasure in doing things: several days 2. Feeling down, depressed, or hopeless: several days 3. Trouble falling or staying asleep, or sleeping too much: nearly every day 4. Feeling tired or having little energy: nearly every day 5. Poor appetite or overeating: nearly every day 6. Feeling bad about yourself - or that you are a failure or have let yourself or your family down: more than half the days 7. Trouble concentrating on things, such as reading the newspaper or watching television: several days 8. Moving or speaking so slowly that other people could have noticed. Or the opposite - being so fidgety or restless that you have been moving around a lot more than usual: more than half the days 9. Thoughts that you would be better off or of hurting yourself in some way: not at all Total score: 16 Depression Screening Interpretation: Positive (on medication, will have BH speak with pt, denies any SI or HI) Depression Screening Follow-up: Existing condition Depression Screening Done: Yes 87671 - PHQ-9 Billing: Yes Source: Developed by Drs. Jonathon Kenyon, Valeri Rios, Ulysses Gambino and colleagues, with an educational harrison from [employer]. Thrive Questionnaire Date Thrive assessed: 08/16/23 I am a: Patient What is your living situation today?: I have a steady place to live Within the past 12 months, did the food you bought not last and you didn't have the money to get more?: Never true Within the past 12 months, did you worry whether your food would run out before you got money to buy more?: Never true Do you have trouble paying for medicines?: No Do you have trouble getting transportation to medical appointments?: No Do you have trouble paying your heating and electricity bill?: Yes Do you have trouble taking care of your child, family member or friend?: No Do you have trouble with day-to-day activities such as bathing, preparing meals, shopping, managing finances, etc.?: Yes Are you currently unemployed and looking for a job?: Yes Are you interested in more education?: No Currently or been in a relationship where the following occur: no concerns reported THRIVE Score: 1 AUDIT C Alcohol Use Questionnaire (AUDIT-C) 1. How often do you have a drink containing alcohol?: Monthly or less 2. How many drinks containing alcohol do you have on a typical day when you are drinking?: 1 or 2 3. How often do you have six or more drinks on one occasion?: Never Total Score: 1 MILLIE-7 AMB Questionnaire MILLIE-7 Date MILLIE - 7 assessed: 08/16/23 Feeling nervous, anxious, or on edge: 2 = More than half the days Not being able to stop or control worryin = More than half the days Worrying too much about different things: 3 = Nearly every day Trouble relaxin = More than half the days Being so restless that it is hard to sit still: 2 = More than half the days Becoming easily annoyed or irritable: 1 = Several days Feeling afraid as if something awful might happen: 1 = Several days Total MILLIE-7 score (0-4 normal; 5-9 mild; 10-14 moderate; 15-21 severe): 13 Source: Developed by Drs. Jonathon Kenyon, Valeri Rios, Ulysses Gambino and colleagues, with an educational harrison from [employer]. MILLIE-7 Assessment Billing MILLIE-7 Assessment Tool: MILLIE-7 Assessment 26667 Review of Systems Const Denies chills and Denies fever(s) Eyes Denies blurry vision ENT Denies vertigo, Reports dizziness (intermittent) and Denies sore throat Card Denies chest pain at rest, Denies chest pain with activity, Denies diaphoresis, Denies dyspnea and Denies dyspnea on exertion Resp Denies cough, Denies dyspnea, Denies dyspnea on exertion and Denies wheezing GI Reports abdominal pain, Denies melena, Denies hematochezia, Denies constipation, Denies diarrhea and Denies loose stools Denies hematuria Musc Reports numbness and Reports tingling Skin/Breast Denies lesions Neuro Denies vertigo, Reports dizziness (intermittent), Reports numbness and Reports tingling Psych Reports anxiety, Reports depression, Denies homicidal ideation, Denies suicidal ideation and Denies other (substance abuse) Aller/Immun Denies wheezing Physical exam (Primary Care) Vital Signs: Last Vital Signs Pulse 97 08/16/23 16:29 BP 160/88 H 08/16/23 16:29 Pulse Ox 98 08/16/23 16:29 Oxygen Delivery Method Room Air 08/16/23 16:29 BMI result Body Mass Index 38.3 Tobacco/Smoking Status: Tobacco use Status Tobacco use date assessed 08/16/23 08/16/23 16:37 Patient Tobacco Use Status Current everyday Tobacco 08/16/23 16:37 Tobacco use type Cigarette 08/16/23 16:37 e-Cigarette/Vaping Use Never Used 08/16/23 16:37 PHQ-9: PHQ-9 Score PHQ-9: Total score 16 08/16/23 16:54 Depression Screening Interpretation: Positive (on medication, will have BH speak with pt, denies any SI or HI) Depression Screening Follow-up: Existing condition Thrive Assessment: Date of Thrive Assessment Date Thrive assessed 08/16/23 08/16/23 16:45 Currently or been in a relationship where the following occur: no concerns reported Const General: cooperative Nutritional Appearance: obese Orientation/consciousness: patient oriented x3 HENMT Head: Yes normal to inspection, Yes normocephalic and Yes atraumatic Ears: TM's normal bilaterally Eyes General: appearance normal, both eyes and all related structures Alignment and Position: alignment normal and position normal Neck Neck: Yes normal visual inspection and Yes no lymphadenopathy Thyroid: Thyroid normal Resp Effort & Inspection: normal respiratory effort Auscultation: clear to auscultation bilaterally and diminished lung sounds Cardio Rate: regular rate Rhythm: regular rhythm Heart sounds: S1 normal heart sound present, S2 normal heart sound present and no murmurs GI Palpation (GI): Soft to palpation and nontender Auscultation: normal bowel sounds Skin Rashes: no rashes Neuro General: patient oriented x3, moves all extremities, no focal motor deficits and deep tendon reflexes 2+ bilaterally Romberg Test: Negative Extrem Other: bilat feet: minimal sensation with use of monofilament, feet intact, onychomycosis noted Psych Appearance: grossly normal Mental Status: mental status grossly normal Speech and movement: Normal speech and movement present Affect: normal affect Attitude: cooperative Thought process: Normal thought process present Thought content: Normal thought content present Insight: Good insight present (Psych) Judgement: Good judgement present (Psych) Assessment and Plan Assessment & Plan (1) Screening for colon cancer: Code(s): Z12.11 - Encounter for screening for malignant neoplasm of colon Plan: Referred to GI (2) Microscopic hematuria: Code(s): R31.29 - Other microscopic hematuria Plan: Referred to urology, culture, cytology, and CT urogram ordered (3) Screening for cervical cancer: Code(s): Z12.4 - Encounter for screening for malignant neoplasm of cervix Plan: referred to quality technician (4) Smoker: Code(s): F17.200 - Nicotine dependence, unspecified, uncomplicated Plan: Referred to thoracic (5) Uncontrolled diabetes mellitus with hyperglycemia: Code(s): E11.65 - Type 2 diabetes mellitus with hyperglycemia Plan: Starting ozempic, insulin resent, referred for eye exam, repeat labs in 2 months (6) Microalbuminuria: Code(s): R80.9 - Proteinuria, unspecified Plan: referred to nephrology Plan The patient agreed to the use of a medical researcher for this encounter. Scribed for LATOYA Huston by laura Starks scribe, on 08/16/2023 at 17:00 EST. Orders: Orders MM screening mammo BI Today Z12.31 - Encounter for screening mammogram for malignant neoplasm of breast CT urogram Today R31.29 - Other microscopic hematuria Urine Culture Today R31.29 - Other microscopic hematuria Complete Blood Count Auto Diff 2 Months E11.65 - Type 2 diabetes mellitus with hyperglycemia TSH reflex Free T4 2 Months E11.65 - Type 2 diabetes mellitus with hyperglycemia UA CC w/rflx Micro + Cult 2 Months E11.65 - Type 2 diabetes mellitus with hyperglycemia Urine Cytology Today R31.29 - Other microscopic hematuria Comprehensive [place]. Panel Fast 2 Months E11.65 - Type 2 diabetes mellitus with hyperglycemia Lipid Panel 2 Months E11.65 - Type 2 diabetes mellitus with hyperglycemia Referrals Ophthalmology Referral E11.65 - Type 2 diabetes mellitus with hyperglycemia Gastroenterology Referral Z12.11 - Encounter for screening for malignant neoplasm of colon Urology Referral R31.29 - Other microscopic hematuria MARKET RESEARCH LEAD Referral Z12.4 - Encounter for screening for malignant neoplasm of cervix Thoracic Surgery Referral F17.200 - Nicotine dependence, unspecified, uncomplicated Nephrology Referral R80.9 - Proteinuria, unspecified Medications: New semaglutide (Ozempic) for 4 weeks 0.25 mg (0.368 mL) subcut QWEEK 3 mL 2RF Changed From atorvastatin 40 mg PO DAILY 90 days 90 tabs 1RF To atorvastatin 40 mg PO BEDTIME 90 days 90 tabs 1RF Refilled levothyroxine Future refills pending lab results 200 mcg PO DAILY 90 tabs 0RF insulin degludec (Tresiba FlexTouch U-200 insulin) Future refills pending lab results 95 units (0.475 mL) subcut BEDTIME 45 mL 0RF insulin lispro (Humalog KwikPen (U-100) Insulin) Future refills pending lab results 20 units (0.2 mL) subcut TID 60 mL 0RF cyanocobalamin (vitamin B-12) 1,000 mcg PO DAILY 90 days 90 tabs 1RF Coding Level of Care Code Est Pt Prev Care 40-64y(54251) Diagnoses Screening for colon cancer Z12.11 Microscopic hematuria R31.29 Screening for cervical cancer Z12.4 Smoker F17.200 Uncontrolled diabetes mellitus with hyperglycemia E11.65 Microalbuminuria R80.9 Additional Codes MILLIE-7 Assessment Billing - MILLIE-7 Assessment Tool: MILLIE-7 Assessment [id number] ([id number])
== END 2023-08-16 17:29 | disposition home or self-care (01) ==
PROVIDERS: PCP Nurse Practitioner Family; Visit Provider Nurse Practitioner Family
DX: Z00.00 Encounter for general adult medical examination without abnormal findings (principal); E11.65 Type 2 diabetes mellitus with hyperglycemia; Z12.11 Encounter for screening for malignant neoplasm of colon; R31.29 Other microscopic hematuria; F17.210 Nicotine dependence, cigarettes, uncomplicated; R80.9 Proteinuria, unspecified
CPT/HCPCS: 99396

== ENCOUNTER 2023-09-01 11:11 | Emergency (ER) | payer OTHER, SELFPAY ==
--- NOTE | ~2023-09-01 | XR_ITS ---
EXAMINATION: XR chest 1V CLINICAL INFORMATION: Reason for Exam cp COMPARISON: July 2023 TECHNIQUE: Frontal view Lungs and Marie: Both lungs are clear. Pleura: Normal. Costophrenic angles are sharp. No pneumothorax. Heart: The heart is normal in size. Mediastinum: The mediastinum is within normal limits.. Bones: Skeletal structures included are normal for patient's age. XR/XR chest 1V IMPRESSION: No radiographic evidence of acute cardiopulmonary disease.
--- NOTE | 2023-09-01 11:14 | ECG_ITS ---
Test Reason : CP Blood Pressure : / mmHG Vent. Rate : 099 BPM Atrial Rate : 099 BPM P-R Int : 164 ms QRS Dur : 076 ms QT Int : 354 ms P-R-T Axes : 047 -08 038 degrees QTc Int : 454 ms Normal sinus rhythm Possible Left atrial enlargement Minimal voltage criteria for LVH, may be normal variant ( R in aVL ) Inferior infarct (cited on or before 20-JUL-2021) Anterior infarct (cited on or before 20-JUL-2021) Abnormal ECG When compared with ECG of 14-JUL-2022 16:09, No significant change was found Referred By: Naun Wu Electronically Signed By:Aquiles Gillette
--- NOTE | 2023-09-01 11:20 | ED_ITS ---
HPI - General Adult General Chief complaint: Chest Pain Stated complaint: chest pain Time Seen by Provider: 09/01/23 11:50 Source: patient Mode of arrival: ambulatory History of Present Illness HPI narrative: 52-year-old female, current everyday smoker, diabetic/hypertension presents with right-sided chest discomfort for the past couple of days that worsens with deep inspiration and with movement. Patient also reports a chronic cough since May productive of phlegm but denies any fevers or chills. Related Data Home Medications Medication Instructions Recorded Confirmed buspirone 7.5 mg tablet 15 mg PO BID 07/26/22 12/19/22 Previous Rx's Medication Instructions Recorded flash glucose scanning reader #1 ea 01/05/22 (FreeStyle Abdon 2 [place]) ipratropium 0.5 mg-albuterol 3 mg 3 ml inhalation Q6-8H PRN wheezing 03/28/22 (2.5 mg base)/3 mL nebulization #90 mL soln albuterol sulfate 90 mcg/actuation 2 puff inhalation Q4-6H PRN 04/29/22 aerosol inhaler (Proventil HFA) wheezing #8.5 grams inhalational spacing device #1 ea 04/29/22 (Aerochamber Plus Z Stat spacer) blood sugar diagnostic (FreeStyle 1 strip miscellaneous QID diabetes 09/19/22 Lite Strips) #300 strips fluticasone propionate 100 1 inh PO BID #180 ea 10/11/22 mcg/actuation blister powder for inhalation (Flovent Diskus) flash glucose sensor (FreeStyle #6 ea 11/17/22 Abdon 2 Sensor kit) gabapentin 800 mg tablet 800 mg PO TID #90 tabs 04/24/23 lidocaine 5 % topical patch 1 patch topical DAILY PRN pain #15 08/02/23 ea omeprazole 20 mg capsule,delayed 20 mg PO DAILY 90 days #90 caps 08/11/23 release valsartan 80 mg tablet 80 mg PO DAILY #30 tabs 08/13/23 atorvastatin 40 mg tablet 40 mg PO BEDTIME 90 days #90 tabs 08/16/23 cyanocobalamin (vitamin B-12) 1,000 mcg PO DAILY 90 days #90 tabs 08/16/23 1,000 mcg tablet insulin degludec 200 unit/mL (3 95 unit (0.475 mL) subcut BEDTIME 08/16/23 mL) subcutaneous pen (Tresiba #45 mL FlexTouch U-200 insulin) insulin lispro 100 unit/mL 20 unit (0.2 mL) subcut TID #60 mL 08/16/23 subcutaneous pen (Humalog KwikPen (U-100) Insulin) levothyroxine 200 mcg tablet 200 mcg PO DAILY #90 tabs 08/16/23 semaglutide 0.25 mg or 0.5 mg (2 0.25 mg (0.368 mL) subcut QWEEK #3 08/16/23 mg/3 mL) subcutaneous pen injector mL (Ozempic) pen needle, diabetic 31 gauge x #400 ea 08/17/2308/17 (BD Ultra-Fine Mini Pen Needle) cyclobenzaprine 10 mg tablet 10 mg PO BEDTIME #14 tabs 08/18/23 nicotine (polacrilex) 2 mg gum 2 mg buccal Q2H PRN nicotine 08/18/23 cravings 30 days #100 ea nicotine 21 mg/24 hr daily 1 patch transdermal Q24H #28 ea 08/18/23 transdermal patch Allergies Allergy/AdvReac Type Severity Reaction Status Date / Time doxycycline [DOXYCYCLINE] Allergy Severe THROAT Verified 08/16/23 16:32 SWELLING clindamycin [CLINDAMYCIN] Allergy Intermediate CHEST PAIN Verified 08/16/23 16:32 Sulfa (Sulfonamide Allergy Unknown makes her Verified 08/16/23 16:32 Antibiotics) sick, vomit trimethoprim [From BACTRIM] Allergy Unknown NAUSEA & Verified 08/16/23 16:32 VOMITING sulfamethoxazole AdvReac Mild NAUSEA & Verified 08/16/23 16:32 [From BACTRIM] VOMITING lisinopril Allergy Unknown headaches Uncoded 08/16/23 16:32 Review of Systems 2 Review of Systems: Pertinent positives and negatives as stated in HPI [facility] Past Medical History Source: nursing notes reviewed Medical History Essential hypertension Insomnia Hypersomnia Snoring Hahn's palsy Cellulitis of buttock Uncontrolled diabetes mellitus Sciatic leg pain B12 deficiency Hyperlipidemia Morbid obesity Migraines Depression Anxiety Diabetes Surgical History H/O elbow surgery Hx of tubal ligation H/O thyroidectomy Family History Family History Father HTN (hypertension) CVD (cardiovascular disease) Diabetes mellitus Mental health disorder Mother Diabetes mellitus Uterine cancer COPD (chronic obstructive pulmonary disease) Mental health disorder Maternal Grandmother Breast cancer Paternal Aunt Breast cancer Brother No problems noted. Sister Substance use disorder Mental health disorder Sister No problems noted. Sister No problems noted. Daughter No problems noted. Son No problems noted. Son No problems noted. Son No problems noted. Son No problems noted. Son No problems noted. Son No problems noted. Social History Social History Household Members: Family Housing: Apartment Do you presently have visiting nurse or other home services: No Alcohol intake: never Patient Tobacco Use Status: Current everyday Tobacco user Tobacco use type: Cigarette Cigarettes Per Day: 10 Years Smoked: 20 Smoked in Last 30 Days: Yes e-Cigarette/Vaping Use: Never Used Second Hand Smoke Exposure: No Use of substances other than those prescribed or required for medical reasons: No Advance Directives: No Advance Directives Information Provided: No Patient : No service: No Current occupational status: disabled Current occupation: [employer] Cognitive needs: No Hearing needs: No Vision needs: Yes Physical Exam ED Vital Signs: Vital Signs - 24 hr 09/01/23 11:21 09/01/23 12:15 Temperature 97.6 F 98.7 F Pulse Rate 101 H 95 Respiratory Rate 17 16 Blood Pressure 195/97 H 172/91 H Pulse Oximetry 98 98 Oxygen Delivery Method Room Air Room Air BMI result Body Mass Index 39.5 VITAL SIGNS: Reviewed. GENERAL: Elevated BMI, Well developed, well nourished, in no acute distress. HEAD: Normocephalic/atraumatic EYES: PERRLA, EOMI EARS: Ext canals without abnormality, TMs non-bulging and non-erythematous NOSE: Nares patent bilateral OROPHARYNX: no oral lesions noted, posterior pharynx clear and non-erythematous without noted tonsillar enlargement/erythema/exudates NECK: Supple, no adenopathy LUNGS: Normal breath sounds. No adventitious sounds or accessory muscle use. SpO2<98> CARDIOVASCULAR: Regular rate and rhythm without noted murmurs, no JVD or lower extremity edema. ABDOMEN: Soft, non-tender, non-distended with bowel sounds. MUSCULOSKELETAL: No tenderness, deformities, or effusions noted on gross inspection. EXTREMITIES: No cyanosis, clubbing or edema. SKIN: Inspection of the skin reveals no rashes NEUROLOGIC: Alert and oriented x 4. Strength and sensation to light touch were grossly intact x 4. Course Course Course Narrative: This is an RME: Additional HPI, ROS, PE not included below will be deferred to primary provider. 52 year old female hx of microalbuminuria, hypertension, diabetes, anxiety, presents w/ CP since yesterday, intermittent, R sided and into R shoulder. CP started at rest. At times CP worse w/ exertion and deep breathing. Unsure if its her chest hurting or her back. Denies sob, nausea, vomiting, fevers, BOLAND, vision changes, dizziness, weakness Medications Administered Discontinued Medications Generic Name Dose Route Start Last Admin Trade Name Freq PRN Reason Stop Dose Admin Insulin Human Lispro 6 unit 09/01/23 13:12 09/01/23 13:33 Insulin Lispro 100 Unit/Ml 3 Ml Vial SUBCUT 09/01/23 13:13 6 unit ONCE ONE Administration Medical Decision Making Medical Decision Making [facility] Narrative: 52-year-old female with history and clinical presentation, DDX: Musculoskeletal, viral illness, pneumonia, bronchitis, lower clinical suspicion for ACS. I reviewed all investigations and hematologic indices are grossly within normal limits without any noted derangements. Chemistry indices without MATT and there is a pseudohyponatremia secondary to elevated glucose the latter of which was treated with 6 units of lispro. I sensitivity troponin is undetectable in no acute changes noted on EKG. Viral testing is negative for influenza/RSV/COVID- 19. Chest x-ray is negative for infiltrate or venous congestion and otherwise my interpretation is in agreement with radiology's impression. Patient received combination analgesics to include a lidocaine patch, I discussed all findings and results with the patient at bedside. Repeat point of care glucose -378. Differential Diagnosis Differential Diagnoses: The differential diagnosis associated with the presentation includes Please see the discussion above Admission/Observation Consideration of admission/observation: Escalation of care including admission/observation considered Please see the discussion above Lab Data [facility] Lab Attestation statement: I reviewed the patient's lab results. Please see the discussion above 09/01/23 11:45 09/01/23 11:45 Labs: Lab Results 09/01/23 09/01/23 Range/Units 11:45 12:17 WBC 9.3 (4.8-10.8) X10*3/uL RBC 4.92 (4.20-5.50) X10*6/uL Hgb 14.6 (12.0-16.0) g/dl Hct 42.0 (37.0-47.0) % MCV 85.4 (80.0-98.0) fL MCH 29.7 (27.0-33.0) pg MCHC 34.8 (31.0-35.0) g/dl RDW 13.1 (11.0-16.0) % Plt Count 262 (160-400) X10*3/uL MPV 9.9 (9.4-12.3) fL Immature Gran % (Auto) 0.3 (0.0-0.4) % Neut % (Auto) 67.5 (45-73) % Lymph % (Auto) 22.0 (20-40) % [place] % (Auto) 7.4 (2-11) % Eos % (Auto) 1.9 (0-4) % Baso % (Auto) 0.9 (0-2) % Lymph # (Auto) 2.1 (1.2-4.9) X10*3/uL [place] # (Auto) 0.7 (0.1-1.2) X10*3/uL Eos # (Auto) 0.2 (0.0-0.4) X10*3/uL Baso # (Auto) 0.1 (0.0-0.2) X10*3/uL Abs Immat Gran (auto) 0.03 (0.00-0.03) X10*3/uL Absolute Neuts (auto) 6.3 (2.0-8.3) x10*3/uL Absolute Nucleated RBC 0.000 (0.0-0.012) X10*3/uL Nucleated RBC % (auto) 0.0 (0.0-0.2) /100WBC Sodium 134 L (135-145) mmol/L Potassium 4.2 (3.3-5.1) mmol/L Chloride 98 (96-108) mmol/L Carbon Dioxide 29 (22-29) mmol/L Anion Gap 11 L (12-20) BUN 14 (9-16) mg/dL Creatinine 1.02 (0.5-1.4) mg/dL Estim Creat Clear Calc 77.8 Estimated GFR 57 Random Glucose 573 H* (60-115) mg/dL Calcium 9.4 (8.4-10.2) mg/dL Magnesium 1.8 (1.6-2.6) mg/dL Total Bilirubin 0.3 (0.0-1.0) mg/dL AST 17 (5-31) U/L ALT 13 (0-31) U/L Alkaline Phosphatase 150 H (39-117) U/L Troponin I High Sens < 2.7 (<3.5-17.0) ng/L Total Protein 7.2 (6.5-8.0) g/dL Albumin 3.3 L (3.5-5.0) g/dL Influenza Type A (PCR) NEGATIVE (Negative) Influenza Type B (PCR) NEGATIVE (Negative) RSV RNA Qual (PCR) NEGATIVE (Negative) SARS-CoV-2 RNA (RT-PCR) NEGATIVE (Negative) Independent Interpretation I performed an independent interpretation of an: EKG Interpretation: Normal sinus rhythm, HR-99, no STEMI, MS/QRS/QTC is within normal limits. Radiology Impression Discussion of test interpretation with radiology: I have reviewed the radiologist's reading. Radiologist Impression: Please see the discussion above External Record Review External record reviewed: Outpatient record, Prior outpatient labs and Prior outpatient radiology Chronic Conditions Patient?s care impacted by: Diabetes and Hypertension Critical Care Time Critical Care Time Critical Care Time: Yes Total Critical Care Time: 45 Attestation: I personally attest to this time spent taking care of the patient. Discharge Plan Discharge Clinical Impression: Atypical chest pain, Acute costochondritis, Hyperglycemia due to diabetes mellitus Patient Disposition: Home, Self-Care Instructions: Costochondritis (ED), Diabetic Hyperglycemia (ED), Chest Wall Pain (ED) Additional Instructions: 1. Resume all home medications as prescribed. 2. I recommend [id number] Tylenol/ibuprofen as needed for pain, also recommend [id number] lidocaine patch, apply the patch to the area of maximal tenderness as directed on the outside packaging. 3. Follow-up with your primary care doctor by calling the office in the next 1-2 days and setting up an appointment for re-evaluation. Return to the ER for any worsening symptoms. Prescriptions: No Action (DME) José Manuel Coppola 2 [place] Misc See Rx Instructions .Route Qty: 1 4RF Rx Instructions: tid testing ipratropium-albuterol 0.5 mg-3 mg(2.5 mg base)/3 mL solution for nebulization 3 ml inhalation Q6-8H PRN (Reason: wheezing) Qty: 90 0RF FreeStyle Lite Strips Strip 1 strip miscellaneous QID Qty: 300 3RF Flovent Diskus 100 mcg/actuation blister with device 1 inh PO BID Qty: 180 1RF (DME) FreeStyle Abdon 2 Sensor Kit See Rx Instructions .Route Qty: 6 1RF Rx Instructions: tid testing gabapentin 800 mg tablet 800 mg PO TID Qty: 90 4RF omeprazole 20 mg capsule,delayed release(DR/EC) 20 mg PO DAILY 90 Days Qty: 90 1RF (DME) pen needle, diabetic [BD Ultra-Fine Mini Pen Needle] 31 gauge x 3/16 needle See Rx Instructions .Route Qty: 400 1RF Rx Instructions: Use to inject insulin 4 times per day nicotine 21 mg/24 hr patch 24 hour 1 patch transdermal Q24H Qty: 28 0RF nicotine (polacrilex) 2 mg gum 2 mg buccal Q2H PRN (Reason: nicotine cravings) 30 Days Qty: 100 0RF cyclobenzaprine 10 mg tablet 10 mg PO BEDTIME Qty: 14 0RF albuterol sulfate [Proventil HFA] 90 mcg/actuation HFA aerosol inhaler 2 puff inhalation Q4-6H PRN (Reason: wheezing) Qty: 8.5 0RF (DME) Aerochamber Plus Z Stat Spacer See Rx Instructions .Route Qty: 1 0RF Rx Instructions: As directed lidocaine 5 % adhesive patch,medicated 1 patch topical DAILY PRN (Reason: pain) Qty: 15 0RF Rx Instructions: leave on most painful area for up to 12 hrs levothyroxine 200 mcg tablet 200 mcg PO DAILY Qty: 90 0RF Rx Instructions: Future refills pending lab results insulin lispro [Humalog KwikPen Insulin] 100 unit/mL insulin pen 20 unit subcut TID Qty: 60 0RF Rx Instructions: Future refills pending lab results Tresiba FlexTouch U-200 200 unit/mL (3 mL) insulin pen 95 unit subcut BEDTIME Qty: 45 0RF Rx Instructions: Future refills pending lab results cyanocobalamin (vitamin B-12) 1,000 mcg tablet 1,000 mcg PO DAILY 90 Days Qty: 90 1RF atorvastatin 40 mg tablet 40 mg PO BEDTIME 90 Days Qty: 90 1RF Ozempic 0.25 mg or 0.5 mg (2 mg/3 mL) pen injector 0.25 mg subcut QWEEK Qty: 3 2RF Rx Instructions: for 4 weeks valsartan 80 mg tablet 80 mg PO DAILY Qty: 30 0RF buspirone 7.5 mg tablet 15 mg PO BID Referrals: Adarsh Johnson, [facility] [Primary Care Provider] -
[2023-09-01 11:21] VITALS: BP 195/97; PULSE 101; RESP 17; TEMP 36.4; O2SAT 98; BMI 39.5
--- OUTSIDE RECORDS SUMMARY | 2023-09-01 11:47 | XMS_ITS | Continuity of Care Document ---
Author Name Unknown Organization [facility] Address [address] [place] [address]- Care Team Providers Care Control Room Helper Name Role Phone Jolynn Lazar NP Primary Care Physician Encounter [facility] Date(s): 02/07/23 - 02/07/[address] [address]- Encounter Diagnosis Abdominal pain(Final) - 02/07/23 Discharge Disposition: A-D/C Home Attending Physician: Tayo Zuñiga DO Admitting Physician: Tayo Zuñiga DO Referring Physician: Not on Staff, Referring MD Allergies, Adverse Reactions, Alerts Substance Reaction Severity Status doxycycline ANAPHYLAXIS Active sulfonamides Active Bactrim VERY SICK Active Medications busPIRone 15 mg oral tablet 1 tablet = 15 mg, By Mouth, 2 times a day, 0 Refills, Maintenance, 02/07/23 12:01:00 EDT, Partial fill upon patient request if the prescription is for a schedule II opioid drug. Start Date: 02/07/23 Status: Ordered CeleXA 40 mg oral tablet 40 mg, 1, tablet, By Mouth, Daily at bedtime, # 30 tablet, Refills 0, Maintenance, 09/12/18 15:58:14 EDT Start Date: 09/12/18 Status: Ordered duloxetine 60 mg oral enteric coated capsule 1 capsule = 60 mg, By Mouth, Daily, 0 Refills, Maintenance, 02/07/23 12:02:00 EDT, Partial fill upon patient request if the prescription is for a schedule II opioid drug. Start Date: 02/07/23 Status: Ordered Freestyle escobar 2 14-day sensors [...] three times a day before meals MAX XCZL=461 UNITS/DAY Please follow the below sliding scale: Blood sugar Humalog dose 100-149 take 20 units 150-199 take 23 units 200... Start Date: 08/26/21 Status: Ordered Januvia 100 mg oral tablet = 100 mg, By Mouth, Daily, # 30 tablet, 0 Refills, Maintenance, 10/21/18 10:37:56 EDT, Tablet Start Date: 10/21/18 Status: Ordered levothyroxine 125 mcg (0.125 mg) [...] EDT, Tablet Start Date: 10/30/18 Status: Ordered Losartan = 25 mg, By Mouth, Daily, 0 Refills, Maintenance, 09/12/18 16:00:17 EDT Start Date: 09/12/18 Status: Ordered Pen [place], 32 G x 4 mm BD Ultra [...] EDT, Aerosol Start Date: 10/29/18 Status: Ordered Toradol Inj 15 mg, Injection, IV Push Slowly, Once, Routine, 02/07/23 18:00:00 EDT, Stop date 02/07/23 18:00:00EDT Start Date: 02/07/23 Stop Date: 02/07/23 Status: Completed Tresiba FlexTouch 200 units/mL subcutaneous solution = 80 units, Subcutaneous Injection, Daily, rotate injection sites, # 18 mL, 5 Refills, Maintenance,05/05/22 12:00:00 EST, Solution, [facility]/pharmacy #[id number], Partial fill upon patient request if the prescription is for a schedule II opioid drug. Start Date: 05/05/22 Stop Date: 11/01/22 Status: Ordered Tylenol 325 mg oral tablet 650 mg, By Mouth, Every 4 hours, PRN, Refills 0, Maintenance, Pain , Moderate, 10/30/18 11:16:42 EDT Start Date: 10/30/18 Status: Ordered Problem List Condition Confirmation Course Effective Dates Status Health St atus Informant Severe obesity Confirmed Active Results Radiology Reports * Exam Date Time Procedure Performing Provider Status 02/07/23 2:[address] Abd/Pelvis W/ IV Contrast Only Omega melara Gaye; Auth (Verified) Notes: (CT Abd/Pelvis W/ IV Contrast Only) Reason For Exam: epigastric abdominal pain;Other: RESULT: CT Abd/Pelvis W/ IV Contrast Only CT Abd/Pelvis W/ IV Contrast Only Hx of Present Illness: 2-3 weeks of left flank pain, abd with a dull ache, reports pain radiates around to the front, denies any fevers constipation; Reason: Other:; epigastric abdominal pain; Clinical Question(s): Pancreatitis; Order Comment: Patient unable to tolerate PO contrast. TECHNIQUE: Spiral CT through the abdomen and pelvis with IV contrast formatted in 3 planes. 100 cc of Omnipaque 300 was administered intravenously. This study was performed without oral contrast. Weight-based protocol using automatic tube modulation was used to optimize exposure parameters. CTDIvol Body: 25.70 mGy, DLP Body: 1391 mGy*cm. COMPARISON: None. FINDINGS: Counseling Services Manager View Findings, Lines and Tubes: None. Visualized Chest: Lung bases are clear. No pleural effusion. The heart is normal in size. No pericardial effusion. Diaphragm: Normal. Liver: Normal. Gallbladder: No CT evidence of gallbladder pathology. Bile ducts: No biliary ductal dilation. Spleen: Spleen is enlarged measuring 14 cm.. Pancreas: Normal. Adrenal glands: Normal. Kidneys and ureters: No hydronephrosis, stones, or suspicious masses. Bladder: Normal. Reproductive organs: Unremarkable. Stomach, small bowel, and large bowel: Moderate amount of stool throughout the colon. Appendix: Normal. Peritoneum and retroperitoneum: No ascites or pneumoperitoneum. No omental or mesenteric lesions. Lymph nodes: No enlarged lymph nodes. Blood vessels: Normal. No aneurysm. No evidence of venous thrombosis. Abdominal and pelvic wall: Unremarkable. Bones: No acute abnormality. Degenerative disease throughout the lumbar spine. Mild anterolisthesisof L4 on L5. Moderate to severe central canal stenosis at the L4-5 level with moderate bilateral neural foramina narrowing. IMPRESSION: Unremarkable CT of the abdomen and pelvis. Moderate amount of stool throughout the colon. Mild anterolisthesis of L4 on L5. Moderate disc bulge resulting in moderate central canal stenosis and moderate bilateral neural foraminal narrowing. An actionable message ([place]) has been communicated via the [employer] system on 02/07/2023 3:07 PM, Message ID [id number]. WSN: [id number] Ordering Physician: Thanh Bird Dictated By: Maximus Austin MD Dictated Date/Time: 02/07/23 3:07 pm Reviewed By: Maximus Austin MD Signed By: Maximus Austin MD Signed Date/Time: 02/07/23 3:07 pm Transcribed By: JUAN Transcribed Date/Time: 02/07/23 2:52 pm Vital Signs Most recent to oldest [Reference Range]: 1 2 3 Height 136 cm (02/07/23 4:59 PM) 136 cm (02/07/23 11:56 AM) Weight 106.5 kg (02/07/23 4:59 PM) 106.5 kg (02/07/23 11:56 AM) Oxygen Saturation [94-100 %] 96 % (02/07/23 5:56 PM) 98 % (02/07/23 4:59 PM) 97 % (02/07/23 2:53 PM) Pulse Rate [55-90 bpm] 72 bpm (02/07/23 5:56 PM) 71 bpm (02/07/23 4:59 PM) 72 bpm (02/07/23 2:53 PM) Body Mass Index [18.5-24.99 kg/m2] 57.58 kg/m2 *>HHI* (02/07/23 4:59 PM) Blood Pressure [90-138/55-84 mm Hg] 157/82mm Hg *H* (02/07/23 5:56 PM) 148/80mm Hg *H* (02/07/23 4:59 PM) 151/77mm Hg *H* (02/07/23 2:53 PM) Respiratory Rate [16-30 br/min] 16 br/min (02/07/23 5:56 PM) 17 br/min (02/07/23 5:27 PM) 18 br/min (02/07/23 2:53 PM) Temperature [96.8-100.4 DegF] 97.9 DegF (02/07/23 2:53 PM) 96.6 DegF *L* (02/07/23 11:56 AM) Mode of Delivery (Oxygen) Room air (02/07/23 5:56 PM) Room air (02/07/23 4:59 PM) Room air (02/07/23 2:53 PM) Blood pressure sites Arm, left (02/07/23 5:56 PM) Arm, left (02/07/23 2:53 PM) Arm, left (02/07/23 11:56 AM) Temperature Route Oral (02/07/23 2:53 PM) Temporal (02/07/23 11:56 AM) Dry Weight 106.5 kg (02/07/23 4:59 PM) 106.5 kg (02/07/23 11:56 AM) Social History Social History Type Response Smoking Status Current every day rogelio guicho entered on: 02/10/15 Sex EKG study * Event Display: ECG 12-Lead Authored Date: Please click on pdf link to open report * Event Display: ECG 12-Lead Authored Date: Ventricular Rate: 115 BPM Atrial Rate: 115 BPM P-R Interval: 156 ms QRS Duration: 74 ms Q-T Interval: 334 ms QTC Calculation(Bazett): 462 ms P Wheaton: 48 degrees R [place]: -1 degrees T [place]: 58 degrees Sinus tachycardia Inferior infarct (cited on or before 07-FEB-2023) Anterior infarct (cited on or before 07-FEB-2023) Abnormal ECG Confirmed by MARGIE GRAY MD ([id number]) on 02/07/2023 11:02:29 PM [place]: MARGIE GRAY MD Note * Tayo Zuñiga DO: PERFORM Event Display: Patient Education Leaflets Authored Date: Pancreatitis ?? [id number] Pancreatitis The pancreas is an organ in the??belly (abdomen). It secretes hormones and digestive juices (enzymes) into the stomach to aid with digestion and blood sugar levels. Pancreatitis is an inflammation ofthe pancreas. In many cases, it's caused when the duct that connects the pancreas and gallbladder is blocked by a gallstone.??Heavy alcohol use is another major cause.??Less common causes can includemedicines, trauma, certain medical procedures, viruses, and toxins. Sometimes the cause of pancreatitis can't be found.??Genetic testing is sometimes done in those cases, especially if there is a family history of pancreatic disease. Symptoms of pancreatitis include: ??? Severe abdominal pain? Nausea and vomiting ??? Severe indigestion ??? Racing heart ??? Fever If the pancreatitis becomes a chronic problem, diarrhea, chronic pain, weight loss, and poor nutrition can result. At first, pancreatitis may be treated in the hospital.??It may be diagnosed by history, exam, bloodtests, and sometimes imaging studies.?? While in the hospital, fluids and medicines can be provided. The underlying cause of the problem must also be treated to prevent further problems. If gallstones are the cause, you and your healthcare provider can discuss choices for treating them.??This oftenresults in gallbladder surgery. Sometimes another test must be done to clear the drainage ducts of a blocked gallstones.??If alcohol is the cause, talk with your healthcare provider about a program to help you stop drinking. Home care ??? Don't drink alcohol. ??? Rest in bed or sit up in a chair until you feel better. ??? Take medicines as prescribed. If you were given??an antibiotic for infection,??take it until it's gone, even if you feel better. Let your healthcare provider know if you vomit up your medicine. Tips for eating and drinking: ??? Try sipping small amounts of clear liquids often to prevent dehydration.? Your provider may advise clear liquids only for 1 or 2 days. This is to rest the pancreas. ??? When you start eating again, start with small amounts. Have small, more frequent meals rather than larger meals.??Low-fat meals are best. Fruits, vegetables, and whole grains are good choices. Stay away from fried and greasy foods. ?? Follow-up care Follow up with your healthcare provider as advised. ?? When to get medical care Call your healthcare provider right away if any of these occur: ??? Pain that continues or gets worse ??? Repeated vomiting ??? Dizziness, weakness ??? Fever of 100.4?? F (38?? C) or higher, or as advised by your provider ??? Severe muscle cramps ??? Yellowish coloring of the skin and eyes (jaundice) ?? Call 911 Call 911 if you have any of the following: ??? Vomiting blood or large amounts of blood in stool ??? Seizure ??? Loss of consciousness ?? Last Reviewed Date: 2021 ?? The [employer]. All rights reserved. This information is not intended as a substitute for professional medical care. Always follow your healthcare professional's instructions. ?? Patient Care team information Care Team Personnel Name: Nagi AL, Jolynn Jain Position: Reference Physician Member Role: PCP Address: Address: [address] [place] [address]- Name: Chelsy Lynn RN Position: [facility] RN Member Role: Primary Care Nurse Name: Tayo Zuñiga DO Position: [facility] ED Medicine MD Member Role: Admitting Physician Address: Address: [address] [facility] [place] [address]- Name: José Luis Jose Position: [facility] ED TA [facility] Member Role: Patient Care Provider Name: Michelle Payne RN Position: [facility] ED RN W/OE and Tasks Member Role: Patient Care Provider Care Team Related Persons Name: LASHELL AYALA Address: home [address] [place] [address] Name: KATHY JUNE Address: home [address] [place] [address]
--- OUTSIDE RECORDS SUMMARY | 2023-09-01 11:47 | XMS_ITS | Continuity of Care Document ---
Author Name Unknown Organization [facility] Address [address] [place] [address]- Care Team Providers Care Data Abstractor Name Role Phone Nagi AL, Jolynn Jain Primary Care Physician Encounter [facility] Date(s): 11/21/22 - 12/21/22 [facility] [address] [place] [id number] Attending Physician: Millie Gabriel Admitting Physician: Millie Gabriel Referring Physician: Millie Gabriel Allergies, Adverse Reactions, Alerts Substance Reaction Severity [...] three times a day before meals MAX IAUT=726 UNITS/DAY Please follow the below sliding scale: [...] 0 Refills, Maintenance, 01/05/21 11:00:00 EDT, Tablet, [facility]/pharmacy #[id number], Partial fill upon patient request if the [...] EDT Start Date: 09/12/18 Status: Ordered Pen [place], 32 G x 4 mm BD Ultra [...] 5 Refills, Maintenance,05/05/22 12:00:00 EST, Solution, [facility]/pharmacy #[id number], Partial fill upon patient request if the [...] Reference Physician Member Role: PCP Address: Address: [address] [place] [id number] [place] [address] Name: Chelsy Lynn RN Position: [facility] RN Member Role: Primary Care Nurse Care Team Related Persons Name: LASHELL AYALA Address: home [address] [place] [address] Name: KATHY JUNE Address: home [address] [place] [id number]
--- OUTSIDE RECORDS SUMMARY | 2023-09-01 11:47 | XMS_ITS | Continuity of Care Document ---
Author Name Unknown Organization [facility] Address [address] [place] [address]- Care Team Providers Care Center Lead Consultant Name Role Phone Nagi AL, Jolynn Jain Primary Care Physician Encounter [facility] ACCT R [id number] Date(s): 11/17/22 - 12/21/22 [facility] [address] [place] [id number] Attending Physician: Harper Rodríguez MD Admitting Physician: Harper Rodríguez MD Referring Physician: Jolynn Lazar NP Allergies, [...] three times a day before meals MAX FAGD=193 UNITS/DAY Please follow the below sliding scale: [...] 0 Refills, Maintenance, 01/05/21 11:00:00 EDT, Tablet, [facility]/pharmacy #[id number], Partial fill upon patient request if the [...] EDT Start Date: 09/12/18 Status: Ordered Pen [place], 32 G x 4 mm BD Ultra [...] Reference Physician Member Role: PCP Address: Address: [address] [place] [id number] [place] [address] Name: Chelsy Lynn RN Position: S RN Member Role: Primary Care Nurse Care Team Related Persons Name: LASHELL AYALA Address: home [address] [place] [id number] Name: KATHY JUNE Address: home [address] [place] [id number]
--- OUTSIDE RECORDS SUMMARY | 2023-09-01 11:47 | XMS_ITS | Continuity of Care Document ---
Author Name Unknown Organization [facility] Address [address] [place] [address]- Care Team Providers Care Fermentation Manager Name Role Phone Jolynn Lazar NP Primary Care Physician Encounter [facility] Date(s): 02/26/23 - 03/28/23 [facility] [address] [place] [id number]- Allergies, Adverse Reactions, Alerts Substance Reaction Severity [...] three times a day before meals MAX QIBS=576 UNITS/DAY Please follow the below sliding scale: [...] EDT Start Date: 09/12/18 Status: Ordered Pen [place], 32 G x 4 mm BD Ultra [...] Daily, rotate injection sites, # 18 mL, 11 Refills, Maintenance, 02/26/23 19:25:00 EDT, Solution, [facility]/pharmacy #[id number], Partial fill upon patient request if the prescription is for a schedule II opioid drug., 165, cm,... Start Date: 02/26/23 Stop Date: 02/21/24 Status: Ordered Tylenol 325 mg oral tablet 650 mg, By Mouth, Every 4 hours, PRN, Refills 0, Maintenance, Pain , Moderate, 10/30/18 11:16:42 EDT Start Date: 10/30/18 Status: Ordered Problem List Condition Confirmation Course Effective Dates Status Health St atus Informant Severe obesity Confirmed Active Social History Social History Type Response Smoking Status Current every day rogelio guicho entered on: 02/10/15 Sex Patient Care team information Care Team Personnel Name: Nagi AL, Jolynn Jain Position: Reference Physician Member Role: PCP Address: Address: [address] [place] [id number]- Name: Chelsy Lynn RN Position: S RN Member Role: Primary Care Nurse Care Team Related Persons Name: LASHELL AYALA Address: home [address] [place] [address] Name: KATHY JUNE Address: home [address] [place] [id number]
[2023-09-01 11:55] LABS: Basophils Absolute Auto 0.1 X10*3/uL (0.0-0.2); Basophils Percent Auto 0.9 % (0-2); Eosinophils Absolute Auto 0.2 X10*3/uL (0.0-0.4); Eosinophils Percent Auto 1.9 % (0-4); Hemoglobin 14.6 g/dl (12.0-16.0); Imm Gran Abs Auto 0.03 X10*3/uL (0.00-0.03); Imm Gran Pct Auto 0.3 % (0.0-0.4); Lymphocytes Absolute Auto 2.1 X10*3/uL (1.2-4.9); MANUAL DIFF FLAG NO; Mean Corpuscular HGB Conc 34.8 g/dl (31.0-35.0); Mean Corpuscular Hemoglobin 29.7 pg (27.0-33.0); Mean Corpuscular Volume 85.4 fL (80.0-98.0); Mean Platelet Volume 9.9 fL (9.4-12.3); Monocytes Absolute Auto 0.7 X10*3/uL (0.1-1.2); Monocytes Percent Auto 7.4 % (2-11); Neutrophils Absolute Auto 6.3 x10*3/uL (2.0-8.3); Neutrophils Percent Auto 67.5 % (45-73); Platelet Count 262 X10*3/uL (160-400); Red Blood Count 4.92 X10*6/uL (4.20-5.50); Red Cell Distribution Width 13.1 % (11.0-16.0); White Blood Count 9.3 X10*3/uL (4.8-10.8)
[2023-09-01 12:15] VITALS: BP 172/91; PULSE 95; RESP 16; TEMP 37.1; O2SAT 98
[2023-09-01 12:34] LABS: Alanine Aminotransferase 13 U/L (0-31); Albumin Level 3.3 g/dL (3.5-5.0); Alkaline Phosphatase 150 U/L (39-117); Anion Gap 11 (12-20); Aspartate Amino Transferase 17 U/L (5-31); Bilirubin Total 0.3 mg/dL (0.0-1.0); Blood Urea Nitrogen 14 mg/dL (9-16); Calcium 9.4 mg/dL (8.4-10.2); Carbon Dioxide 29 mmol/L (22-29); Chloride 98 mmol/L (96-108); Creatinine Clr Calc Pharmacy 77.8; Estimated Glomerular Filt Rate 57; Glucose Random 573 mg/dL (60-115); Magnesium 1.8 mg/dL (1.6-2.6); Potassium 4.2 mmol/L (3.3-5.1); Sodium 134 mmol/L (135-145); Total Protein 7.2 g/dL (6.5-8.0)
[2023-09-01 12:38] LABS: Troponin-I High Sensitivity < 2.7 ng/L (<3.5-17.0)
[2023-09-01 13:03] LABS: Influenza A PCR NEGATIVE (Negative); Influenza B PCR NEGATIVE (Negative); Resp Syncy Virus RNA Qual PCR NEGATIVE (Negative); SARS COV2 PCR INHOUSE NEGATIVE (Negative)
[2023-09-01] MEDS: Insulin Lispro 100 UNIT/ML 3 ML VIAL 6 UNIT SUBCUT (13:33)
--- NOTE | 2023-09-01 13:34 | PC.NURSE ---
insulin administered per provider order. pt aware urine sample is needed at this time. plan of care ongoing. call brantley placed within reach.
[2023-09-01 14:16] VITALS: BP 172/95; PULSE 87; RESP 17; TEMP 36.6; O2SAT 98
[2023-09-01 14:16] LABS: Glucose, Whole Blood 378 mg/dL (60-115)
[2023-09-01] MEDS: Ibuprofen 400 MG TABLET PO (14:37)
[2023-09-01] MEDS: Lidocaine 4 % Patch ADH..PATCH 1 PATCH TRANSDERMA (14:38)
[2023-09-01] MEDS: Acetaminophen 325 MG TABLET 975 MG PO (14:38)
[2023-09-01 14:42] VITALS: BP 172/95; PULSE 87; RESP 18; TEMP 36.6; O2SAT 98
== END 2023-09-01 14:48 | disposition home or self-care (01) ==
PROVIDERS: Physician Assistant; Emergency Provider Student in an Organized Health Care Education/Training Program; PCP Nurse Practitioner Family
DX: M94.0 Chondrocostal junction syndrome [Tietze] (principal); R07.89 Other chest pain; E11.65 Type 2 diabetes mellitus with hyperglycemia; I10 Essential (primary) hypertension; Z11.52 Encounter for screening for COVID-19; Z20.828 Contact with and (suspected) exposure to other viral communicable diseases
CPT/HCPCS: 0241U; 36415; 71045; 80053; 82947; 83735; 84484; 85025; 93005; 99284; 99285

== ENCOUNTER → 2023-09-01 11:14 | Outpatient (BNV) | payer OTHER, SELFPAY | PROVIDERS: Emergency Provider Student in an Organized Health Care Education/Training Program; PCP Nurse Practitioner Family; Visit Provider Internal Medicine Cardiovascular Disease | DX: R07.9 Chest pain, unspecified (principal) | CPT/HCPCS: 93010 ==

== ENCOUNTER 2023-10-23 08:51 | Outpatient (REF) | payer OTHER, SELFPAY | END 2023-10-23 08:52 | disposition home or self-care (01) | LOC: HO.MAMMO 08:51 | PROVIDERS: PCP Nurse Practitioner Family; Visit Provider Nurse Practitioner Family | DX: Z13.89 Encounter for screening for other disorder (principal) ==

== ENCOUNTER 2023-11-01 10:53 | Outpatient (AMB) | payer OTHER, SELFPAY ==
--- NOTE | 2023-11-01 11:03 | A.OFFVIS_ITS ---
Intake Visit Reasons: microscopic hematuria Intake Note: NEW Patient presents today to established treatment for Microscopic Hematuria: Meds- None Allergies to Antibiotic- Clindamycin, Doxycycline, Sulfa, Bactrim Blood Thinner- None Platform Stapler Required: No Accompanied by: Self / Same As Patient Allergies doxycycline [DOXYCYCLINE] Allergy (Severe, Verified 11/01/23 11:04) THROAT SWELLING clindamycin [CLINDAMYCIN] Allergy (Intermediate, Verified 11/01/23 11:04) CHEST PAIN Sulfa (Sulfonamide Antibiotics) Allergy (Unknown, Verified 11/01/23 11:04) makes her sick, vomit trimethoprim [From BACTRIM] Allergy (Unknown, Verified 11/01/23 11:04) NAUSEA & VOMITING sulfamethoxazole [From BACTRIM] Adverse Reaction (Mild, Verified 11/01/23 11:04) NAUSEA & VOMITING lisinopril Allergy (Unknown, Uncoded 11/01/23 11:04) headaches HPI Comments Details: Tammy is a 52-year-old female who here for evaluation due to microscopic. The patient has a history of cigarette use. Discussed reasons for blood in the urine may include but are not limited to kidney stones, cancer in the urinary tract, BPH, kidney stone disease or inflammatory conditions of the urinary tract. She had a CT scan of the abdomen pelvis kidneys 09/26/22, reviewed results, kidneys no masses or renal calculi. I have discussed workup to include cystoscopy evaluation. Will check a renal US, urine for cytology. [facility] Medical History Essential hypertension Insomnia Hypersomnia Snoring Hahn's palsy Cellulitis of buttock Uncontrolled diabetes mellitus Sciatic leg pain B12 deficiency Hyperlipidemia Morbid obesity Migraines Depression Anxiety Diabetes Surgical History H/O elbow surgery Hx of tubal ligation H/O thyroidectomy Family History Father HTN (hypertension) CVD (cardiovascular disease) Diabetes mellitus Mental health disorder Mother Diabetes mellitus Uterine cancer COPD (chronic obstructive pulmonary disease) Mental health disorder Maternal Grandmother Breast cancer Paternal Aunt Breast cancer Brother No problems noted. Sister Substance use disorder Mental health disorder Sister No problems noted. Sister No problems noted. Daughter No problems noted. Son No problems noted. Son No problems noted. Son No problems noted. Son No problems noted. Son No problems noted. Son No problems noted. Social History Household Members: Family Housing: Apartment Do you presently have visiting nurse or other home services: No Alcohol intake: never Patient Tobacco Use Status: Current everyday Tobacco user Tobacco use type: Cigarette Cigarettes Per Day: 10 Years Smoked: 20 e-Cigarette/Vaping Use: Never Used Second Hand Smoke Exposure: No service: No Current occupational status: disabled Current occupation: [employer] Cognitive needs: No Hearing needs: No Vision needs: Yes Review of Systems Const All systems reviewed & are unremarkable except as noted in HPI and below Reports no additional complaints Eyes Reports no additional complaints ENT Reports no additional complaints Card Reports no additional complaints Resp Reports no additional complaints GI Reports no additional complaints Reports as per HPI Musc Reports no additional complaints Skin/Breast Reports system reviewed and no additional complaints, except as documented Neuro Reports no additional complaints Psych Reports no additional complaints Endo Reports no additional complaints Ari/Lymph Reports no additional complaints Aller/Immun Reports no additional complaints Physical Exam Const General: cooperative, healthy appearing and no acute distress Orientation/consciousness: patient oriented x3 HEENT Head: Yes normal to inspection, Yes normocephalic and Yes atraumatic Eyes Conjunctivae: conjunctivae normal Neck Neck: Yes normal visual inspection and Yes trachea midline Chest Chest palpation & inspection: normal inspection of the chest Resp Effort & Inspection: normal respiratory effort Cardio Rate: regular rate GI Inspection: Yes normal to inspection Palpation (GI): Soft to palpation General: No no CVA tenderness External Female Exam: normal external appearance Speculum Exam - Vagina: vagina atrophic Back/Spine/Pelvis Back: No no CVA tenderness Skin General skin exam: no rashes or lesions noted Neuro General: patient oriented x3 Extrem General: No edema Psych Appearance: grossly normal Results AMB Urinalysis, Automated UA Leukoctes 0 Jenae/uL Last Edit by Heriberto Marvin [facility] on 11/01/23 11:19 UA Nitrite Negative Last Edit by Heriberto Marvin [facility] on 11/01/23 11:19 UA Urobilinogen 0.2 mg/dL Last Edit by Heriberto Marvin [facility] on 11/01/23 11:1 9 UA Protein 100 mg/dL Last Edit by Heriberto Marvin [facility] on 11/01/23 11:19 2+ Heriberto Marvin 11/01/23 11:19 UA pH 6.0 Last Edit by Heriberto Marvin [facility] on 11/01/23 11:19 UA Blood 80 Aric/uL Last Edit by Heriberto Marvin [facility] on 11/01/23 11:19 2+ Heriberto Marvin 11/01/23 11:19 UA Specific [place] 1.015 Last Edit by Heriberto Marvin [facility] on 11/01/23 11: 19 UA Ketone Negative Last Edit by Heriberto Marvin [facility] on 11/01/23 11:19 UA Bilirubin 0 mg/dL Last Edit by Heriberto Marvin [facility] on 11/01/23 11:19 UA Glucose 1000 mg/dL Last Edit by Heriberto aMrvin [facility] on 11/01/23 11:19 3+ Heriberto Marvin 11/01/23 11:19 Results Reviewed Results Reviewed: Laboratory Last Values Urine pH (Auto) 6.0 11/01/23 11:09 Specific [place] (Auto) 1.015 11/01/23 11:09 Urine Protein (Auto) 100 mg/dL 11/01/23 11:09 Glucose (UA)(Auto) 1000 mg/dL 11/01/23 11:09 Urine Ketones (Auto) Negative 11/01/23 11:09 Urine Blood (Auto) 80 Aric/uL 11/01/23 11:09 Urine Nitrite (Auto) Negative 11/01/23 11:09 Urine Bilirubin (Auto) 0 mg/dL 11/01/23 11:09 Urine Urobilinogen (Auto) 0.2 mg/dL 11/01/23 11:09 Leukocyte Esterase (Auto) 0 Jenae/uL 11/01/23 11:09 Date of Service: 09/26/22 EXAMINATION: CT ABDOMEN AND PELVIS WITHOUT CONTRAST CLINICAL INFORMATION: Left flank pain and left lower quadrant pain, nausea. COMPARISON: CT pelvis 09/03/2021. CT abdomen/pelvis 06/02/2021. TECHNIQUE: Multidetector volumetric imaging was performed from the superior aspect of the liver through the pubic symphysis. Sagittal and coronal reformatted images were obtained on the technologist's workstation. This CT examination was performed using dose optimization techniques as appropriate, variously including the following: *Automated exposure control *Adjustment of mA and/or kV according to patient size (this includes techniques or standardized protocols for targeted exams where dose is matched to indication/reason for exam; i.e. extremities or head) *Use of iterative reconstruction technique DLP: 1241 mGy-cm FINDINGS: The lack of intravenous contrast limits evaluation of the solid visceral organs including the liver, spleen, pancreas, and kidneys. LUNG BASES: No focal consolidation or pleural effusion. LIVER, GALLBLADDER, AND BILIARY TREE: The liver is enlarged measuring 22.2 cm craniocaudally with decreased attenuation of the liver parenchyma suggesting hepatic steatosis. Small calcified granuloma in the hepatic dome. No suspicious focal liver lesions in this limited noncontrast examination. No evidence of calcified gallbladder calculi nor findings to suspect acute cholecystitis. No biliary ductal dilatation. PANCREAS: Unremarkable. SPLEEN: Unremarkable. ADRENAL GLANDS: Unremarkable. KIDNEYS AND URETERS: lobation. No hydronephrosis, hydroureter, or calculi seen. No perinephric stranding. BLADDER: Unremarkable. GASTROINTESTINAL TRACT: The stomach and the small bowel are nondilated. The appendix is not identified, however there are no regional inflammatory changes to suspect acute appendicitis. No findings to suspect acute colitis or diverticulitis. No evidence of bowel obstruction. ABDOMINAL WALL: No significant hernia is appreciated. LYMPH NODES: Normal. VASCULAR: Unremarkable. PELVIC VISCERA: Unremarkable. OSSEOUS STRUCTURES: Degenerative changes of the spine. No acute or aggressive appearing osseous abnormalities. IMPRESSION: 1. Hepatomegaly and hepatic steatosis. 2. No acute abdominal or pelvic abnormalities to explain the patient's symptoms. Assessment & Plan Assessment & Plan (1) Microscopic hematuria: Code(s): R31.29 - Other microscopic hematuria Category: Medical (2) History of nicotine use: Code(s): Z87.891 - Personal history of nicotine dependence Category: Medical Plan Renal US. urine for cytology. fu office cystoscopy Orders: Orders AMB Urinalysis Automated 11/01/23 Z13.9 - Encounter for screening, unspecified Urine Cytology 11/01/23 R31.29 - Other microscopic hematuria US renal BI Today R31.29 - Other microscopic hematuria Medications: Discontinued semaglutide (Ozempic) for 4 weeks Discontinued Reason: Insurance Denied 0.25 mg (0.368 mL) subcut QWEEK 3 mL 2RF Patient Instructions: The patient had an opportunity to ask questions regarding treatment plan. The patient expressed understanding and agreement with the above treatment plan. The patient is aware they should contact our office by phone for worsening of their current condition or the appearance of new symptoms. Compliance is encouraged with any medications and followup testing that is ordered. It is a privilege to be allowed the opportunity to participate in the urologic care of your patient. If you have any questions or concerns regarding treatment for the above conditions please do not hesitate to contact me. The office telephone contact is [phone]. This note is constructed in part using voice recognition software. While every effort has been made to ensure accuracy life care planner errors may have been included. Yours sincerely, Adam Abdalla MD Coding Level of Care Code New Pt Level 4 (32489) Diagnoses Microscopic hematuria R31.29 History of nicotine use Z87.897
== END 2023-11-01 11:44 | disposition home or self-care (01) ==
PROVIDERS: PCP Nurse Practitioner Family; Visit Provider Urology
DX: R31.29 Other microscopic hematuria (principal); Z87.891 Personal history of nicotine dependence
CPT/HCPCS: 99204

== ENCOUNTER 2023-11-01 10:53 | Outpatient (REF) | payer OTHER, SELFPAY ==
[2023-11-01 16:38] LABS: Urine Cytology See Pathology rpt
== END 2023-11-01 10:54 | disposition home or self-care (01) ==
LOC: HO.LAB 10:53
PROVIDERS: PCP Nurse Practitioner Family; Visit Provider Urology
DX: R31.29 Other microscopic hematuria (principal); Z87.891 Personal history of nicotine dependence
CPT/HCPCS: 81003; 88112; 99202

== ENCOUNTER 2023-11-22 13:37 | Outpatient (REF) | payer OTHER, SELFPAY ==
--- NOTE | ~2023-11-22 | MM_ITS ---
EXAMINATION: MM DIAGNOSTIC DIGITAL BREAST TOMOSYNTHESIS, BILATERAL US BREAST LIMITED, RIGHT MAMMOGRAPHY: CLINICAL INFORMATION: Diffuse right breast pain. Right-sided rib pain. Patient also due for bilateral screening. COMPARISON: Mammography: 08/19/2013. (Baseline exam) TECHNIQUE: Digital breast tomosynthesis is performed in both the craniocaudal and mediolateral oblique views along with computer-aided detection (CAD). Synthesized 2D images are generated from the tomosynthesis. In addition, full-field 3-D right mediolateral view was obtained, as well as full-field bilateral 3-D laterally exaggerated cc views. FINDINGS: The breasts are almost entirely fatty (ACR BI-RADS breast composition Category a). There is an intramammary lymph node in the posterior aspect of the right breast on the MLO view, overlying the inferior pectoralis. This is benign. There are no suspicious masses, suspicious grouped calcifications, or areas of architectural distortion in either breast. The parenchymal pattern is stable from prior exams. There is no skin or axillary abnormality. No mammographic abnormalities in the right breast to explain pain. ULTRASOUND: CLINICAL INFORMATION: Right diffuse breast pain. COMPARISON: No prior right ultrasound. TECHNIQUE: Targeted sonographic evaluation was performed using a high frequency linear transducer. Selected archived documentation. FINDINGS: RIGHT BREAST: There is fatty tissue. No suspicious mass is seen. No cystic abnormality. There is no pathologic acoustic shadowing. There is no correlate to explain diffuse right breast pain. MM/MM tomosynthesis diagnostic BI IMPRESSION: -There are no findings suspicious for malignancy in either breast. -There is no sonographic or mammographic abnormality present to explain right breast pain. Recommend clinical management and follow-up. -Otherwise, recommend resuming routine annual screening mammography. OVERALL ASSESSMENT: Mammography: BI-RADS 1 - Negative Ultrasound: BI-RADS 1 - Negative RECOMMENDATION: 1. Patient should be managed based on the clinical impression. 2. Otherwise, routine annual screening mammography. This patient's information was entered into a reminder system with a target due date for their next mammogram.
== END 2023-11-22 13:38 | disposition home or self-care (01) ==
LOC: HO.MAMMO 13:37
PROVIDERS: PCP Nurse Practitioner Family; Visit Provider Nurse Practitioner Family
DX: N64.4 Mastodynia (principal)
CPT/HCPCS: 76642; 77062; 77066

== ENCOUNTER → 2023-11-22 14:30 | Outpatient (BNV) | payer OTHER, SELFPAY | PROVIDERS: PCP Nurse Practitioner Family; Visit Provider Radiology Diagnostic Radiology | DX: N64.4 Mastodynia (principal) | CPT/HCPCS: 76642; 77062; 77066 ==

== ENCOUNTER 2023-12-10 10:57 | Outpatient (REF) | payer OTHER, SELFPAY ==
--- NOTE | ~2023-12-10 | US_ITS ---
EXAMINATION: US RETROPERITONEAL LIMITED (RENAL ONLY) CLINICAL INFORMATION: Microscopic hematuria. COMPARISON: CT abdomen and pelvis dated 09/26/2022. TECHNIQUE: Real-time imaging of the kidneys. FINDINGS: RIGHT KIDNEY: 14.4 x 4.1 x 5.1 cm (SAG x AP x TRV). The kidney is normal in size and echogenicity. There is a lobulated contour. Renal cortical thickness is normal. No calculi or focal parenchymal lesions. No hydronephrosis. LEFT KIDNEY: 13.5 x 5.2 x 6.3 cm (SAG x AP x TRV). The kidney is normal in size and echogenicity. There is a lobulated contour. Renal cortical thickness is normal. No calculi or focal parenchymal lesions. No hydronephrosis. US/US renal BI IMPRESSION: Unremarkable examination.
== END 2023-12-10 10:58 | disposition home or self-care (01) ==
LOC: HO.US 10:57
PROVIDERS: PCP Nurse Practitioner Family; Visit Provider Urology
DX: R31.29 Other microscopic hematuria (principal)
CPT/HCPCS: 76775

== ENCOUNTER 2023-12-13 10:40 | Outpatient (AMB) | payer OTHER, SELFPAY ==
--- NOTE | 2023-12-13 10:42 | MHC.OFFVIS ---
Intake Visit Reasons: cysto Intake Note: Patient is present for Cystoscopy Urology Medication:vitamin B Antibiotic Allergy:doxycycline,clindamycin,sulfa,trimethoprim,bactrim Blood Thinner:none Lot:[id number] Exp:07/19/2026 Superintendent Maintenance Required: No Allergies doxycycline [DOXYCYCLINE] Allergy (Severe, Verified 01/09/24 18:59) THROAT SWELLING clindamycin [CLINDAMYCIN] Allergy (Intermediate, Verified 01/09/24 18:59) CHEST PAIN Sulfa (Sulfonamide Antibiotics) Allergy (Unknown, Verified 01/09/24 18:59) makes her sick, vomit trimethoprim [From BACTRIM] Allergy (Unknown, Verified 01/09/24 18:59) NAUSEA & VOMITING dulaglutide [From Trulicity] Adverse Reaction (Severe, Verified 01/09/24 18:59) Diarrhea sulfamethoxazole [From BACTRIM] Adverse Reaction (Mild, Verified 01/09/24 18:59) NAUSEA & VOMITING lisinopril Allergy (Unknown, Uncoded 01/09/24 18:59) headaches Medication List - Last Reconciled 12/13/23 by Adam Abdalla MD albuterol sulfate 90 mcg/actuation (Proventil HFA) 2 puffs inhalation Q4-6H PRN atorvastatin 40 mg PO BEDTIME 90 days blood sugar diagnostic (FreeStyle Lite Strips) 1 strip miscellaneous QID buspirone 15 mg (2 x 7.5 mg) PO BID 90 days cyanocobalamin (vitamin B-12) 1,000 mcg PO DAILY 90 days cyclobenzaprine 10 mg PO BEDTIME dulaglutide (Trulicity) 0.75 mg (0.5 mL) subcut QWEEK duloxetine 60 mg PO DAILY 90 days flash glucose scanning reader (FreeStyle [place] 2 [place]) tid testing flash glucose sensor (FreeStyle [place] 2 Sensor kit) tid testing fluticasone propionate 100 mcg/actuation (Flovent Diskus) 1 inh PO BID gabapentin 800 mg PO TID inhalational spacing device (Aerochamber Plus Z Stat spacer) As directed insulin degludec (Tresiba FlexTouch U-200 insulin) 95 units (0.475 mL) subcut BEDTIME insulin lispro (Humalog KwikPen (U-100) Insulin) 20 units (0.2 mL) subcut TID ipratropium-albuterol 0.5 mg-3 mg(2.5 mg base)/3 mL 3 mL inhalation Q6-8H PRN levothyroxine 200 mcg PO DAILY lidocaine 5% 1 patch topical DAILY PRN nicotine 1 patch transdermal Q24H nicotine (polacrilex) 2 mg buccal Q2H PRN 30 days omeprazole 20 mg PO DAILY 90 days pen needle, diabetic (BD Ultra-Fine Mini Pen Needle) Use to inject insulin 4 times per day prednisone 50 mg PO DAILY 5 days quetiapine 50 mg PO BEDTIME 90 days solifenacin (Vesicare) 10 mg PO DAILY valsartan 80 mg PO DAILY HPI Comments Details: 12/13/23--Here for cystoscopy. Cystoscopy findings: mild/mod trabeculations, no suspicious bladder lesions visualized. She c/o's of urinary frequency/urgency, discussed trial vesicare. Review of chart: 11/01/23--Tammy is a 52-year-old female who here for evaluation due to microscopic. The patient has a history of cigarette use. Discussed reasons for blood in the urine may include but are not limited to kidney stones, cancer in the urinary tract, BPH, kidney stone disease or inflammatory conditions of the urinary tract. She had a CT scan of the abdomen pelvis kidneys 09/26/22, reviewed results, kidneys no masses or renal calculi. I have discussed workup to include cystoscopy evaluation. Will check a renal US, urine for cytology. [facility] Medical History (Updated 02/03/24 @ 20:15 by Adam Abdalla MD) History of thyroid cancer Hypothyroid Uncontrolled diabetes mellitus with hyperglycemia Essential hypertension Hyperlipidemia Nicotine dependence, cigarettes, uncomplicated Sleep apnea Obesity (BMI 30-39.9) Insomnia Anxiety Depression Migraines B12 deficiency Vitamin D deficiency Hahn's palsy Sciatic leg pain Surgical History (Updated 01/29/24 @ 08:31 by Paulina Torres PA-C) S/P thyroid biopsy History of thyroidectomy History of elbow surgery History of tubal ligation Family History Father HTN (hypertension) CVD (cardiovascular disease) Diabetes mellitus Mental health disorder Mother Diabetes mellitus Uterine cancer COPD (chronic obstructive pulmonary disease) Mental health disorder Maternal Grandmother Breast cancer Paternal Aunt Breast cancer Brother No problems noted. Sister Substance use disorder Mental health disorder Sister No problems noted. Sister No problems noted. Daughter No problems noted. Son No problems noted. Son No problems noted. Son No problems noted. Son No problems noted. Son No problems noted. Son No problems noted. Social History Household Members: Family Housing: Apartment Do you presently have visiting nurse or other home services: No Alcohol intake: never Patient Tobacco Use Status: Current everyday Tobacco user Tobacco use type: Cigarette Cigarettes Per Day: 10 Years Smoked: 20 e-Cigarette/Vaping Use: Never Used Second Hand Smoke Exposure: No service: No Current occupational status: disabled Current occupation: [employer] Cognitive needs: No Hearing needs: No Vision needs: Yes Review of Systems Const All systems reviewed & are unremarkable except as noted in HPI and below Reports no additional complaints Eyes Reports no additional complaints ENT Reports no additional complaints Card Reports no additional complaints Resp Reports no additional complaints GI Reports no additional complaints Reports as per HPI Musc Reports no additional complaints Skin/Breast Reports system reviewed and no additional complaints, except as documented Neuro Reports no additional complaints Psych Reports no additional complaints Endo Reports no additional complaints Ari/Lymph Reports no additional complaints Aller/Immun Reports no additional complaints Office Procedures Cystoscopy Consent Discussed risk and benefit or proposed procedure with the patient. Information consent for procedure given to the patient. Discussed technical aspects, risks, benefits and alternatives in full. Addressed all of the patient's questions and concerns regarding the procedure. The patient demonstrated knowledge and understanding. They wish to proceed with this procedure. Preparation The patient was prepped in the usual manner. A masonry teacher was present and in the room. Genitalia was prepped with betadine solution in a sterile manner. Lidocaine Jelly 2% was placed into the urethra and 16Fr flexible Olympus cystoscope was inserted into the meatus after adequate lubrication. Procedure Time out per protocol performed. Bladder Inspection Bladder Inspection: The bladder was inspected in its entirety with utilization retroflexion displaying: Tumor(s): no suspicious bladder lesions visualized Trabeculation: Mild to Moderate Mucosal Erthema: NA Orifices: normal shape and position Urethra: normal Cystoscopy findings: mild/mod trabeculations, no suspicious bladder lesions visualized [id number] DISPOSABLE SCOPE URO-G FLEXIBLE SCOPE Procedure code (CPT) selection complete Office Meds lidocaine HCl 2 % mucosal jelly in applicator Performing Provider: Adam Abdalla MD [place] [facility] [place] [facility] Administered by: Steve Gallegos LPN on 12/13/23 10:54 Dose Route Admin Location Dispensed Lot Number Expiration Date NDC Circuit Clerk 10 mL intra-urethral 10 mL naproxen 500 mg tablet Performing Provider: Adam Abdalla MD Performing Location: [facility] [place] [facility] Administered by: Steve Gallegos LPN on 12/13/23 10:54 Dose Route Admin Location Dispensed Lot Number Expiration Date NDC Circuit Clerk 500 mg PO 1 tab ciprofloxacin HCl 500 mg tablet Performing Provider: Adam Abdalla MD Performing Location: [facility] [place] [facility] Administered by: Steve Gallegos LPN on 12/13/23 10:54 Dose Route Admin Location Dispensed Lot Number Expiration Date NDC Circuit Clerk 500 mg PO 1 tab Results AMB Urinalysis, Automated UA Leukoctes 15 Jenae/uL Last Edit by FRANKO Henry on 12/13/23 10:56 UA Nitrite Negative Last Edit by FRANKO Henry on 12/13/23 10:56 UA Urobilinogen 0.2 mg/dL Last Edit by FRANKO Henry on 12/13/23 10:56 UA Protein 100 mg/dL Last Edit by FRANKO Henry on 12/13/23 10:56 UA pH 6.0 Last Edit by FRANKO Henry on 12/13/23 10:56 UA Blood 10 Aric/uL Last Edit by FRANKO Henry on 12/13/23 10:56 UA Specific [place] 1.015 Last Edit by FRANKO eHnry on 12/13/23 10:56 UA Ketone Negative Last Edit by FRANKO Henry on 12/13/23 10:56 UA Bilirubin 0 mg/dL Last Edit by FRANKO Henry on 12/13/23 10:56 UA Glucose 1000 mg/dL Last Edit by FRANKO Henry on 12/13/23 10:56 Results Reviewed Results Reviewed: Laboratory Last Values Urine pH (Auto) 6.0 12/13/23 10:55 Specific [place] (Auto) 1.015 12/13/23 10:55 Urine Protein (Auto) 100 mg/dL 12/13/23 10:55 Glucose (UA)(Auto) 1000 mg/dL 12/13/23 10:55 Urine Ketones (Auto) Negative 12/13/23 10:55 Urine Blood (Auto) 10 Aric/uL 12/13/23 10:55 Urine Nitrite (Auto) Negative 12/13/23 10:55 Urine Bilirubin (Auto) 0 mg/dL 12/13/23 10:55 Urine Urobilinogen (Auto) 0.2 mg/dL 12/13/23 10:55 Leukocyte Esterase (Auto) 15 Jenae/uL 12/13/23 10:55 Collected: 11/01/23 Location: .LAB Received: 11/02/23 Diagnosis Urine, cytology: Negative for high-grade urothelial carcinoma. COMMENT: Review of the cytology preparation demonstrates a mildly cellular specimen consisting of benign squamous epithelial cells and few urothelial cells. 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 Clinical History Microscopic hematuria Material Received Urine for cytology Gross Description Received are 20 cc of clear yellow fluid from which a ThinPrep slide is prepared. Date of Service: 12/10/23 EXAMINATION: US RETROPERITONEAL LIMITED (RENAL ONLY) CLINICAL INFORMATION: Microscopic hematuria. COMPARISON: CT abdomen and pelvis dated 09/26/2022. TECHNIQUE: Real-time imaging of the kidneys. FINDINGS: RIGHT KIDNEY: 14.4 x 4.1 x 5.1 cm (SAG x AP x TRV). The kidney is normal in size and echogenicity. There is a lobulated contour. Renal cortical thickness is normal. No calculi or focal parenchymal lesions. No hydronephrosis. LEFT KIDNEY: 13.5 x 5.2 x 6.3 cm (SAG x AP x TRV). The kidney is normal in size and echogenicity. There is a lobulated contour. Renal cortical thickness is normal. No calculi or focal parenchymal lesions. No hydronephrosis. Also IMPRESSION: Unremarkable examination. Date of Service: 09/26/22 EXAMINATION: CT ABDOMEN AND PELVIS WITHOUT CONTRAST CLINICAL INFORMATION: Left flank pain and left lower quadrant pain, nausea. COMPARISON: CT pelvis 09/03/2021. CT abdomen/pelvis 06/02/2021. TECHNIQUE: Multidetector volumetric imaging was performed from the superior aspect of the liver through the pubic symphysis. Sagittal and coronal reformatted images were obtained on the technologist's workstation. This CT examination was performed using dose optimization techniques as appropriate, variously including the following: *Automated exposure control *Adjustment of mA and/or kV according to patient size (this includes techniques or standardized protocols for targeted exams where dose is matched to indication/reason for exam; i.e. extremities or head) *Use of iterative reconstruction technique DLP: 1241 mGy-cm FINDINGS: The lack of intravenous contrast limits evaluation of the solid visceral organs including the liver, spleen, pancreas, and kidneys. LUNG BASES: No focal consolidation or pleural effusion. LIVER, GALLBLADDER, AND BILIARY TREE: The liver is enlarged measuring 22.2 cm craniocaudally with decreased attenuation of the liver parenchyma suggesting hepatic steatosis. Small calcified granuloma in the hepatic dome. No suspicious focal liver lesions in this limited noncontrast examination. No evidence of calcified gallbladder calculi nor findings to suspect acute cholecystitis. No biliary ductal dilatation. PANCREAS: Unremarkable. SPLEEN: Unremarkable. ADRENAL GLANDS: Unremarkable. KIDNEYS AND URETERS: lobation. No hydronephrosis, hydroureter, or calculi seen. No perinephric stranding. BLADDER: Unremarkable. GASTROINTESTINAL TRACT: The stomach and the small bowel are nondilated. The appendix is not identified, however there are no regional inflammatory changes to suspect acute appendicitis. No findings to suspect acute colitis or diverticulitis. No evidence of bowel obstruction. ABDOMINAL WALL: No significant hernia is appreciated. LYMPH NODES: Normal. VASCULAR: Unremarkable. PELVIC VISCERA: Unremarkable. OSSEOUS STRUCTURES: Degenerative changes of the spine. No acute or aggressive appearing osseous abnormalities. IMPRESSION: 1. Hepatomegaly and hepatic steatosis. 2. No acute abdominal or pelvic abnormalities to explain the patient's symptoms. Assessment & Plan Assessment & Plan (1) Microscopic hematuria: Code(s): R31.29 - Other microscopic hematuria Category: Medical (2) History of nicotine use: Code(s): Z87.891 - Personal history of nicotine dependence Category: Medical (3) OAB (overactive bladder): Code(s): N32.81 - Overactive bladder Category: Medical Plan Cystoscopy findings: mild/mod trabeculations, no suspicious bladder lesions visualized OAB. Vesicare 10 mg daily fu 3 months, monitor PVR Orders: Orders AMB Cystoscopy 12/13/23 R80.9 - Proteinuria, unspecified, R31.29 - Other microscopic hematuria AMB Urinalysis Automated 12/13/23 Z13.9 - Encounter for screening, unspecified Medications: New solifenacin (Vesicare) 10 mg PO DAILY 30 tabs 5RF urinary incontinence Patient Instructions: The patient had an opportunity to ask questions regarding treatment plan. The patient expressed understanding and agreement with the above treatment plan. The patient is aware they should contact our office by phone for worsening of their current condition or the appearance of new symptoms. Compliance is encouraged with any medications and followup testing that is ordered. It is a privilege to be allowed the opportunity to participate in the urologic care of your patient. If you have any questions or concerns regarding treatment for the above conditions please do not hesitate to contact me. The office telephone contact is [phone]. This note is constructed in part using voice recognition software. While every effort has been made to ensure accuracy universal winding machine operator errors may have been included. Yours sincerely, Adam Abdalla MD Coding Level of Care Code Est Pt Level 3 (38489) Diagnoses Microscopic hematuria R31.29 History of nicotine use Z87.891 OAB (overactive bladder) N32.81 CPT Codes Cystoscopy - CPT: 89414-[id number] ([id number])
== END 2023-12-13 11:22 | disposition home or self-care (01) ==
PROVIDERS: PCP Nurse Practitioner Family; Visit Provider Urology
DX: R31.29 Other microscopic hematuria (principal); Z87.891 Personal history of nicotine dependence; N32.81 Overactive bladder
CPT/HCPCS: 52000; 99213

== ENCOUNTER → 2023-12-13 10:40 | Outpatient (BNVA) | payer OTHER, SELFPAY | PROVIDERS: PCP Nurse Practitioner Family; Visit Provider Urology | DX: R31.29 Other microscopic hematuria (principal); N32.81 Overactive bladder; Z87.891 Personal history of nicotine dependence | CPT/HCPCS: 52000; 81003; 99212 ==

== ENCOUNTER 2024-01-01 10:03 | Outpatient (AMB) | payer OTHER, SELFPAY ==
--- NOTE | 2024-01-01 10:07 | A.OFFPC_ITS ---
Vital Signs 01/01/24 10:11 01/01/24 10:43 Height 5 ft 5 in Weight 230 lb BMI 38.3 BP 150/100 H 146/98 H Blood Pressure Location Rt brachial Rt brachial Position Sitting Sitting Pulse 107 H Pulse Source Pulse Oximeter Pulse Oximetry (%) 96 Oxygen Delivery Method Room Air Intake Visit Reasons: 4 MON FUP- NEEDS A1C Intake Note: Patient here for DM f/u. Allergies doxycycline [DOXYCYCLINE] Allergy (Severe, Verified 01/01/24 10:25) THROAT SWELLING clindamycin [CLINDAMYCIN] Allergy (Intermediate, Verified 01/01/24 10:25) CHEST PAIN Sulfa (Sulfonamide Antibiotics) Allergy (Unknown, Verified 01/01/24 10:25) makes her sick, vomit trimethoprim [From BACTRIM] Allergy (Unknown, Verified 01/01/24 10:25) NAUSEA & VOMITING dulaglutide [From Trulicity] Adverse Reaction (Severe, Verified 01/01/24 11:01) Diarrhea sulfamethoxazole [From BACTRIM] Adverse Reaction (Mild, Verified 01/01/24 10:25) NAUSEA & VOMITING lisinopril Allergy (Unknown, Uncoded 01/01/24 10:25) headaches Medication List - Last Reconciled 01/01/24 by Adarsh Johnson, [facility]- albuterol sulfate 90 mcg/actuation (Proventil HFA) 2 puffs inhalation Q4-6H PRN atorvastatin 40 mg PO BEDTIME 90 days blood sugar diagnostic (FreeStyle Lite Strips) 1 strip miscellaneous QID buspirone 15 mg (2 x 7.5 mg) PO BID 90 days cyanocobalamin (vitamin B-12) 1,000 mcg PO DAILY 90 days cyclobenzaprine 10 mg PO BEDTIME duloxetine 60 mg PO DAILY 90 days flash glucose scanning reader (FreeStyle Abdon 2 [place]) tid testing flash glucose sensor (FreeStyle Abdon 2 Sensor kit) tid testing fluticasone propionate 100 mcg/actuation (Flovent Diskus) 1 inh PO BID gabapentin 800 mg PO TID inhalational spacing device (Aerochamber Plus Z Stat spacer) As directed insulin degludec (Tresiba FlexTouch U-200 insulin) 95 units (0.475 mL) subcut BEDTIME insulin lispro (Humalog KwikPen (U-100) Insulin) 20 units (0.2 mL) subcut TID ipratropium-albuterol 0.5 mg-3 mg(2.5 mg base)/3 mL 3 mL inhalation Q6-8H PRN levothyroxine 200 mcg PO DAILY lidocaine 5% 1 patch topical DAILY PRN nicotine 1 patch transdermal Q24H nicotine (polacrilex) 2 mg buccal Q2H PRN 30 days omeprazole 20 mg PO DAILY 90 days pen needle, diabetic (BD Ultra-Fine Mini Pen Needle) Use to inject insulin 4 times per day quetiapine 50 mg PO BEDTIME 90 days solifenacin (Vesicare) 10 mg PO DAILY valsartan 80 mg PO DAILY Tobacco use date assessed: 08/16/23 Dental Screening Dental Screen Date: 08/16/23 HPI 4 MON FUP- NEEDS A1C HPI Details Pt is an uncontrolled diabetic, on an ARB and a statin. A1C in office today is 13.9. Microalbumin is up to date. Denies polyuria and polydipsia, does report neuropathy. Pt denies any signs and symptoms of hypoglycemia and does know how to correct it. Will refer to endo for further diabetes management. Pt reports lower blood sugars around meals so she was skipping her humalog. Will decrease from 20 units to 10 units. Pt has been smoking up to a pack a day since age 15. Will refer for low-dose CT. HTN: Blood pressure is elevated today. Will increase valsartan from 80mg to 160mg. Will also start amlodipine 2.5mg. Due for colon screen. Pt has been referred to GI multiple times. Will order cologuard. [facility] Medical History Essential hypertension Insomnia Hypersomnia Snoring Hahn's palsy Cellulitis of buttock Uncontrolled diabetes mellitus Sciatic leg pain B12 deficiency Hyperlipidemia Morbid obesity Migraines Depression Anxiety Diabetes Surgical History H/O elbow surgery Hx of tubal ligation H/O thyroidectomy Family History Father HTN (hypertension) CVD (cardiovascular disease) Diabetes mellitus Mental health disorder Mother Diabetes mellitus Uterine cancer COPD (chronic obstructive pulmonary disease) Mental health disorder Maternal Grandmother Breast cancer Paternal Aunt Breast cancer Brother No problems noted. Sister Substance use disorder Mental health disorder Sister No problems noted. Sister No problems noted. Daughter No problems noted. Son No problems noted. Son No problems noted. Son No problems noted. Son No problems noted. Son No problems noted. Son No problems noted. Social History Household Members: Family Housing: Apartment Do you presently have visiting nurse or other home services: No Alcohol intake: never Patient Tobacco Use Status: Current everyday Tobacco user Tobacco use type: Cigarette Cigarettes Per Day: 10 Years Smoked: 20 Packs per year/per ci.00 e-Cigarette/Vaping Use: Never Used Second Hand Smoke Exposure: No service: No Current occupational status: disabled Current occupation: [employer] Cognitive needs: No Hearing needs: No Vision needs: Yes Questionnaire PHQ-9 Over the last 2 weeks, how often have you been bothered by any of the following problems? 1. Little interest or pleasure in doing things: more than half the days 2. Feeling down, depressed, or hopeless: more than half the days 3. Trouble falling or staying asleep, or sleeping too much: nearly every day 4. Feeling tired or having little energy: nearly every day 5. Poor appetite or overeating: nearly every day 6. Feeling bad about yourself - or that you are a failure or have let yourself or your family down: several days 7. Trouble concentrating on things, such as reading the newspaper or watching television: several days 8. Moving or speaking so slowly that other people could have noticed. Or the opposite - being so fidgety or restless that you have been moving around a lot more than usual: several days 9. Thoughts that you would be better off or of hurting yourself in some way: not at all Total score: 16 Source: Developed by Drs. Jonathon Kenyon, Valeri Rios, Ulysses Gambino and colleagues, with an educational harrison from [employer]. Thrive Questionnaire Date Thrive assessed: 12/25/23 I am a: Patient What is your living situation today?: I have a steady place to live Within the past 12 months, did the food you bought not last and you didn't have the money to get more?: Sometimes True Within the past 12 months, did you worry whether your food would run out before you got money to buy more?: Sometimes True Do you have trouble paying for medicines?: No Do you have trouble getting transportation to medical appointments?: No Do you have trouble paying your heating and electricity bill?: I choose not to answer this question Do you have trouble taking care of your child, family member or friend?: No Do you have trouble with day-to-day activities such as bathing, preparing meals, shopping, managing finances, etc.?: Yes Are you currently unemployed and looking for a job?: I choose not to answer this question Are you interested in more education?: No Please select the resources that you would like help with: Housing/Usp Currently or been in a relationship where the following occur: No concerns reported THRIVE Score: 2 AUDIT C Alcohol Use Questionnaire (AUDIT-C) 1. How often do you have a drink containing alcohol?: Monthly or less 2. How many drinks containing alcohol do you have on a typical day when you are drinking?: 1 or 2 3. How often do you have six or more drinks on one occasion?: Never Total Score: 1 MILLIE-7 AMB Questionnaire MILLIE-7 Date MILLIE - 7 assessed: 08/16/23 Feeling nervous, anxious, or on edge: 2 = More than half the days Not being able to stop or control worryin = Several days Worrying too much about different things: 1 = Several days Trouble relaxin = Several days Being so restless that it is hard to sit still: 1 = Several days Becoming easily annoyed or irritable: 1 = Several days Feeling afraid as if something awful might happen: 3 = Nearly every day Total MILLIE-7 score (0-4 normal; 5-9 mild; 10-14 moderate; 15-21 severe): 10 Source: Developed by Drs. Jonathon Kenyon, Valeri Rios, Ulysses Gambino and colleagues, with an educational harrison from [employer]. MILLIE-7 Assessment Billing MILLIE-7 Assessment Tool: MILLIE-7 Assessment 59937 Review of Systems Const Reports as per HPI Physical exam (Primary Care) Vital Signs: Last Vital Signs Pulse 107 H 01/01/24 10:11 BP 146/98 H 01/01/24 10:43 Pulse Ox 96 01/01/24 10:11 Oxygen Delivery Method Room Air 01/01/24 10:11 BMI result Body Mass Index 38.3 Tobacco/Smoking Status: Tobacco use Status Tobacco use date assessed 08/16/23 01/01/24 10:10 Patient Tobacco Use Status Current everyday Tobacco 01/01/24 10:10 Tobacco use type Cigarette 01/01/24 10:10 e-Cigarette/Vaping Use Never Used 01/01/24 10:10 PHQ-9: PHQ-9 Score PHQ-9: Total score 16 01/01/24 10:43 Thrive Assessment: Date of Thrive Assessment Date Thrive assessed 12/25/23 01/01/24 10:10 Currently or been in a relationship where the following occur: No concerns reported Const General: cooperative Nutritional Appearance: obese Orientation/consciousness: patient oriented x3 Resp Effort & Inspection: normal respiratory effort Auscultation: wheezes scattered wheezes Cardio Rate: regular rate Rhythm: regular rhythm Heart sounds: S1 normal heart sound present and S2 normal heart sound present Neuro General: patient oriented x3 Extrem Other: right middle finger with paranychia, erythema along cuticle, tender with palpation, onychomycosis to nail, no surrounding or spreading erythema, bilat feet: + sensation with use of monofilament, onychomycosis noted, left big toenail with dried blood to nailbed Psych Appearance: grossly normal Mental Status: mental status grossly normal Speech and movement: Normal speech and movement present Affect: normal affect Attitude: cooperative Thought process: Normal thought process present Thought content: Normal thought content present Insight: Good insight present (Psych) Judgement: Good judgement present (Psych) Results AMB Hemoglobin A1c AMB Hemoglobin A1c 13.9 % Last Edit by FRANKO Becker on 01/01/24 10:45 Results Reviewed Results Reviewed: Laboratory Last Values Hgb A1c (Clinic) 13.9 % (4.0-6.0) H 01/01/24 10:44 Assessment and Plan Assessment & Plan (1) Uncontrolled diabetes mellitus with hyperglycemia: Code(s): E11.65 - Type 2 diabetes mellitus with hyperglycemia Plan: Referred to endo, decreasing humalog from 20 units to 10 units (2) Onychomycosis: Code(s): B35.1 - Tinea unguium Plan: Referred to podiatry (3) Smoker: Code(s): F17.200 - Nicotine dependence, unspecified, uncomplicated Plan: Referred for low-dose CT (4) Morbid obesity: Code(s): E66.01 - Morbid (severe) obesity due to excess calories Plan: Labs ordered (5) B12 deficiency: Code(s): E53.8 - Deficiency of other specified B group vitamins Plan: Labs ordered (6) HTN (hypertension): Code(s): I10 - Essential (primary) hypertension Plan: Increasing valsartan to 160mg and adding amlodipine 2.5mg Plan The patient agreed to the use of a medical collections representative for this encounter. Scribed for LATOYA Huston by Bere Hutchinson medical collections representative, on 01/01/2024 at 10:25 EST. Orders: Orders AMB Hemoglobin A1c Today Z13.9 - Encounter for screening, unspecified Vitamin B12 and Folate Today E53.8 - Deficiency of other specified B group vitamins, E66.01 - Morbid (severe) obesity due to excess calories Referrals Endocrinology Referral E11.65 - Type 2 diabetes mellitus with hyperglycemia Cologuard Test Z12.11 - Encounter for screening for malignant neoplasm of colon, Z12.12 - Encounter for screening for malignant neoplasm of rectum Podiatry Referral B35.1 - Tinea unguium, E11.65 - Type 2 diabetes mellitus with hyperglycemia Lung Cancer Screening Referral F17.200 - Nicotine dependence, unspecified, uncomplicated Medications: New amoxicillin-pot clavulanate 875-125 mg 1 tab PO BID 20 tabs 0RF 10 days amlodipine 2.5 mg PO DAILY 90 tabs 0RF 90 days Changed From valsartan 80 mg PO DAILY 90 tabs 0RF To valsartan 160 mg PO DAILY 90 tabs 0RF From insulin lispro (Humalog KwikPen (U-100) Insulin) Future refills pending lab results 20 units (0.2 mL) subcut TID 60 mL 1RF To insulin lispro (Humalog KwikPen (U-100) Insulin) Future refills pending lab results 10 units (0.1 mL) subcut TID 60 mL 1RF Coding Level of Care Code Est Pt Level 4 (33945) Diagnoses Uncontrolled diabetes mellitus with hyperglycemia E11.65 Onychomycosis B35.1 Smoker F17.200 Morbid obesity E66.01 B12 deficiency E53.8 HTN (hypertension) I10 Additional Codes MILLIE-7 Assessment Billing - MILLIE-7 Assessment Tool: MILLIE-7 Assessment [id number] ([id number])
[2024-01-01 10:11] VITALS: BP 150/100; PULSE 107; O2SAT 96; BMI 38.3
[2024-01-01 10:43] VITALS: BP 146/98
== END 2024-01-01 11:37 | disposition home or self-care (01) ==
PROVIDERS: PCP Nurse Practitioner Family; Visit Provider Nurse Practitioner Family
DX: E11.65 Type 2 diabetes mellitus with hyperglycemia (principal); E66.01 Morbid (severe) obesity due to excess calories; Z68.38 Body mass index [BMI] 38.0-38.9, adult; B35.1 Tinea unguium; F17.200 Nicotine dependence, unspecified, uncomplicated; E53.8 Deficiency of other specified B group vitamins; I10 Essential (primary) hypertension
CPT/HCPCS: 83036; 99214

== ENCOUNTER 2024-01-09 18:48 | Emergency (ER) | payer OTHER, SELFPAY ==
[2024-01-09 18:53] VITALS: BP 100/70; PULSE 124; O2SAT 98
[2024-01-09 18:56] VITALS: BP 101/62; PULSE 105; RESP 16; TEMP 36.6; O2SAT 98; BMI 38.3
--- NOTE | 2024-01-09 19:13 | ED.DIZZY ---
HPI - Dizziness General Chief Complaint: Anxiety Stated Complaint: dizzy,diabetic Time Seen by Provider: 01/09/24 18:53 Source: patient and EMS Mode of arrival: EMS Limitations: no limitations History of Present Illness HPI Narrative: 53-year-old female states she was walking around when she started to feel dizzy she checked her blood sugar noticed that was in the 90s she states that is very low for her she stated she was able to eat a hot dog continue to feel dizzy and then had some ice cream is now feeling better EMS was able to talk to come in her symptoms have since resolved she denies chest pain cough fever nausea vomiting or diarrhea. No recent changes in her medications Related Data Previous Rx's ?Medication ?Instructions ?Recorded flash glucose scanning reader #1 ea 01/05/22 (FreeStyle Abdon 2 [place]) ipratropium 0.5 mg-albuterol 3 mg 3 ml inhalation Q6-8H PRN wheezing 03/28/22 (2.5 mg base)/3 mL nebulization #90 mL soln albuterol sulfate 90 mcg/actuation 2 puff inhalation Q4-6H PRN 04/29/22 aerosol inhaler (Proventil HFA) wheezing #8.5 grams inhalational spacing device #1 ea 04/29/22 (Aerochamber Plus Z Stat spacer) blood sugar diagnostic (FreeStyle 1 strip miscellaneous QID diabetes 09/19/22 Lite Strips) #300 strips fluticasone propionate 100 1 inh PO BID #180 ea 10/11/22 mcg/actuation blister powder for inhalation (Flovent Diskus) gabapentin 800 mg tablet 800 mg PO TID #90 tabs 04/24/23 omeprazole 20 mg capsule,delayed 20 mg PO DAILY 90 days #90 caps 08/11/23 release atorvastatin 40 mg tablet 40 mg PO BEDTIME 90 days #90 tabs 08/16/23 cyanocobalamin (vitamin B-12) 1,000 mcg PO DAILY 90 days #90 tabs 08/16/23 1,000 mcg tablet insulin degludec 200 unit/mL (3 95 unit (0.475 mL) subcut BEDTIME 08/16/23 mL) subcutaneous pen (Tresiba #45 mL FlexTouch U-200 insulin) levothyroxine 200 mcg tablet 200 mcg PO DAILY #90 tabs 08/16/23 pen needle, diabetic 31 gauge x #400 ea 08/17/23/ (BD Ultra-Fine Mini Pen Needle) nicotine (polacrilex) 2 mg gum 2 mg buccal Q2H PRN nicotine 09/18/23 cravings 30 days #100 ea nicotine 21 mg/24 hr daily 1 patch transdermal Q24H #28 ea 09/18/23 transdermal patch flash glucose sensor (FreeStyle #6 ea 10/06/23 Abdon 2 Sensor kit) solifenacin 10 mg tablet (Vesicare) 10 mg PO DAILY urinary 12/13/23 incontinence #30 tabs amlodipine 2.5 mg tablet 2.5 mg PO DAILY 90 days #90 tabs 01/01/24 amoxicillin 875 mg-potassium 1 tab PO BID 10 days #20 tabs 01/01/24 clavulanate 125 mg tablet insulin lispro 100 unit/mL 10 unit (0.1 mL) subcut TID #60 mL 01/01/24 subcutaneous pen (Humalog KwikPen (U-100) Insulin) valsartan 160 mg tablet 160 mg PO DAILY #90 tabs 01/01/24 buspirone 7.5 mg tablet 15 mg (2 x 7.5 mg) PO BID 90 days 01/04/24 #360 tabs cyclobenzaprine 10 mg tablet 10 mg PO BEDTIME #14 tabs 01/04/24 duloxetine 60 mg capsule,delayed 60 mg PO DAILY 90 days #90 caps 01/04/24 release lidocaine 5 % topical patch 1 patch topical DAILY PRN pain #15 01/04/24 ea quetiapine 50 mg tablet 50 mg PO BEDTIME 90 days #90 tabs 01/04/24 Allergies Allergy/AdvReac Type Severity Reaction Status Date / Time doxycycline [DOXYCYCLINE] Allergy Severe THROAT Verified 01/09/24 18:59 SWELLING clindamycin [CLINDAMYCIN] Allergy Intermediate CHEST PAIN Verified 01/09/24 18:59 Sulfa (Sulfonamide Allergy Unknown makes her Verified 01/09/24 18:59 Antibiotics) sick, vomit trimethoprim [From BACTRIM] Allergy Unknown NAUSEA & Verified 01/09/24 18:59 VOMITING dulaglutide [From Trulicity] AdvReac Severe Diarrhea Verified 01/09/24 18:59 sulfamethoxazole AdvReac Mild NAUSEA & Verified 01/09/24 18:59 [From BACTRIM] VOMITING lisinopril Allergy Unknown headaches Uncoded 01/09/24 18:59 Review of Systems Review of Systems: Review of systems: General: Patient denies any fever chills recent illness or falls Musculoskeletal: Denies back pain or body aches or other injuries HEENT: denies headache, runny nose, ear pain Respiratory: denies shortness of breath, cough Cardiovascular: no chest pain or palpitations : denies dysuria, frequency Abdomen: no nausea vomiting denies abdominal pain Extremities: no swelling, no pain Skin: no diaphoresis Yes all other systems are reviewed and are negative [facility] Past Medical History Medical History Essential hypertension Insomnia Hypersomnia Snoring Hahn's palsy Cellulitis of buttock Uncontrolled diabetes mellitus Sciatic leg pain B12 deficiency Hyperlipidemia Morbid obesity Migraines Depression Anxiety Diabetes Surgical History H/O elbow surgery Hx of tubal ligation H/O thyroidectomy Family History Family History Father HTN (hypertension) CVD (cardiovascular disease) Diabetes mellitus Mental health disorder Mother Diabetes mellitus Uterine cancer COPD (chronic obstructive pulmonary disease) Mental health disorder Maternal Grandmother Breast cancer Paternal Aunt Breast cancer Brother No problems noted. Sister Substance use disorder Mental health disorder Sister No problems noted. Sister No problems noted. Daughter No problems noted. Son No problems noted. Son No problems noted. Son No problems noted. Son No problems noted. Son No problems noted. Son No problems noted. Social History Social History Household Members: Family Housing: Apartment Do you presently have visiting nurse or other home services: No Alcohol intake: never Patient Tobacco Use Status: Current everyday Tobacco user Tobacco use type: Cigarette Cigarettes Per Day: 10 Years Smoked: 20 e-Cigarette/Vaping Use: Never Used Second Hand Smoke Exposure: No service: No Current occupational status: disabled Current occupation: [employer] Cognitive needs: No Hearing needs: No Vision needs: Yes Physical Exam Vital Signs: Vital Signs: Last Vital Signs Temp 97.9 F 01/09/24 18:56 Pulse 105 H 01/09/24 18:56 Resp 16 01/09/24 18:56 BP 101/62 01/09/24 18:56 Pulse Ox 98 01/09/24 18:56 O2 Del Method Room Air 01/09/24 18:56 BMI result Body Mass Index 38.3 Neurological exam: CN II- XII tested. Patient is alert and oriented to person place and time. Patient has no dysphagia or dysarthia, denies good vision in all four vision jefferson no nystagmus on exam, good strength to upper and lower extremities with normal reflexes to brachioradialis, wrist, patella and achilles. Negative romberg, good finger to nose and heel to aburto. General: Well-appearing well-nourished in no signs of distress HEENT: Normocephalic atraumatic Neck: No signs of JVD, no masses no tenderness or lymphadenopathy Cardiovascular: Regular rate and rhythm Respiratory: Clear to auscultation bilaterally Abdomen: Soft nontender no masses Extremities: Normal pedal pulses no signs of edema Skin: Dry warm no rashes Back: No tenderness full ROM Medical Decision Making Medical Decision Making MDM Narrative: Patient's swallow I offered to get more medications fluids but she is happy with the plan to go home I will discharge the patient home at this time Differential Diagnosis Differential Diagnoses: The differential diagnosis associated with the presentation includes Hypoglycemia that has since resolved dehydration electrolyte abnormality ACS and stroke or also the differential police she has completely normal neuro exam and her symptoms have since resolved Discharge Plan Discharge Clinical Impression: Diabetic hypoglycemia Patient Disposition: Home, Self-Care Instructions: What to Do if Your Blood Sugar is Low (ED), Hypoglycemia in a Person with Diabetes (ED) Additional Instructions: You were seen today for low blood sugar. Please call follow up with your doctor if you have any other concerns please do not hesitate to come back to the emergency department. Prescriptions: No Action (DME) FreeStyle Abdon 2 [place] Misc See Rx Instructions .Route Qty: 1 4RF Rx Instructions: tid testing ipratropium-albuterol 0.5 mg-3 mg(2.5 mg base)/3 mL solution for nebulization 3 ml inhalation Q6-8H PRN (Reason: wheezing) Qty: 90 0RF FreeStyle Lite Strips Strip 1 strip miscellaneous QID Qty: 300 3RF Flovent Diskus 100 mcg/actuation blister with device 1 inh PO BID Qty: 180 1RF gabapentin 800 mg tablet 800 mg PO TID Qty: 90 4RF omeprazole 20 mg capsule,delayed release(DR/EC) 20 mg PO DAILY 90 Days Qty: 90 1RF (DME) pen needle, diabetic [BD Ultra-Fine Mini Pen Needle] 31 gauge x 3/16 needle See Rx Instructions .Route Qty: 400 1RF Rx Instructions: Use to inject insulin 4 times per day nicotine (polacrilex) 2 mg gum 2 mg buccal Q2H PRN (Reason: nicotine cravings) 30 Days Qty: 100 0RF nicotine 21 mg/24 hr patch 24 hour 1 patch transdermal Q24H Qty: 28 0RF (DME) FreeStyle Abdon 2 Sensor Kit See Rx Instructions .Route Qty: 6 1RF Rx Instructions: tid testing cyclobenzaprine 10 mg tablet 10 mg PO BEDTIME Qty: 14 0RF duloxetine 60 mg capsule,delayed release(DR/EC) 60 mg PO DAILY 90 Days Qty: 90 0RF lidocaine 5 % adhesive patch,medicated 1 patch topical DAILY PRN (Reason: pain) Qty: 15 0RF Rx Instructions: leave on most painful area for up to 12 hrs buspirone 7.5 mg tablet 15 mg PO BID 90 Days Qty: 360 0RF quetiapine 50 mg tablet 50 mg PO BEDTIME 90 Days Qty: 90 0RF albuterol sulfate [Proventil HFA] 90 mcg/actuation HFA aerosol inhaler 2 puff inhalation Q4-6H PRN (Reason: wheezing) Qty: 8.5 0RF (DME) Aerochamber Plus Z Stat Spacer See Rx Instructions .Route Qty: 1 0RF Rx Instructions: As directed levothyroxine 200 mcg tablet 200 mcg PO DAILY Qty: 90 0RF Rx Instructions: Future refills pending lab results Tresiba FlexTouch U-200 200 unit/mL (3 mL) insulin pen 95 unit subcut BEDTIME Qty: 45 0RF Rx Instructions: Future refills pending lab results cyanocobalamin (vitamin B-12) 1,000 mcg tablet 1,000 mcg PO DAILY 90 Days Qty: 90 1RF atorvastatin 40 mg tablet 40 mg PO BEDTIME 90 Days Qty: 90 1RF amoxicillin-pot clavulanate 875-125 mg tablet 1 tab PO BID 10 Days Qty: 20 0RF valsartan 160 mg tablet 160 mg PO DAILY Qty: 90 0RF amlodipine 2.5 mg tablet 2.5 mg PO DAILY 90 Days Qty: 90 0RF insulin lispro [Humalog KwikPen Insulin] 100 unit/mL insulin pen 10 unit subcut TID Qty: 60 1RF Rx Instructions: Future refills pending lab results solifenacin [Vesicare] 10 mg tablet 10 mg PO DAILY Qty: 30 5RF Print Language: [place]
[2024-01-09 20:07] VITALS: BP 101/62; PULSE 105; RESP 16; TEMP 36.6; O2SAT 98
== END 2024-01-09 20:09 | disposition home or self-care (01) ==
PROVIDERS: Emergency Provider Student in an Organized Health Care Education/Training Program; PCP Nurse Practitioner Family
DX: F41.1 Generalized anxiety disorder (principal); R42 Dizziness and giddiness; E11.649 Type 2 diabetes mellitus with hypoglycemia without coma; F17.210 Nicotine dependence, cigarettes, uncomplicated; Z79.4 Long term (current) use of insulin; Z79.899 Other long term (current) drug therapy
CPT/HCPCS: 99283; 99284

== ENCOUNTER 2024-01-15 10:42 | Outpatient (REF) | payer OTHER, SELFPAY ==
[2024-01-15 13:13] LABS: Appearance Urine Clear; Color Urine Yellow; Glucose Urine UA Negative (Negative); Leukocyte Esterase Urine Large (3+) (Negative); Nitrite Urine Negative (Negative); PH 7.5 (5.0-9.0); UMIC TRIGGER UA YES; Urine Blood Small (1+) (Negative); Urine Ketones Negative (Negative); Urine Protein 30 (1+) mg/dL (Neg-Trace)
[2024-01-15 13:23] LABS: Bacteria Urine 2+ (None Seen); Hyaline Casts Urine 0-2 /LPF (0-2)
== END 2024-01-15 10:43 | disposition home or self-care (01) ==
LOC: HO.LAB 10:42
PROVIDERS: PCP Nurse Practitioner Family; Visit Provider Urology
DX: R31.29 Other microscopic hematuria (principal)
CPT/HCPCS: 81001; 87086

== ENCOUNTER 2024-02-01 10:53 | Outpatient (AMB) | payer OTHER, SELFPAY ==
--- NOTE | 2024-02-01 10:55 | A.OFFVIS_ITS ---
Vital Signs 02/01/24 10:57 Height 5 ft 5 in Weight 235 lb 14.314 oz BMI 39.3 BP 160/90 H Blood Pressure Location Rt brachial Position Sitting Pulse 105 H Pulse Source Pulse Oximeter Intake Visit Reasons: T2DM/CONFIRMED Intake Note: New Patient presents today to establish treatment for Type 2 Diabetes Mellitus: Last Diabetic eye exam was on: Coming up appt Sep 6 Last Podiatry exam was on: Does not see a Dental Laboratory Technician Most recent HbA1c: 13.9%, 01/01/2024 Random Glucose- 227mg/dL, Today Television Station Manager Required: No Accompanied by: Self / Same As Patient Allergies doxycycline [DOXYCYCLINE] Allergy (Severe, Verified 03/04/24 10:29) THROAT SWELLING clindamycin [CLINDAMYCIN] Allergy (Intermediate, Verified 03/04/24 10:29) CHEST PAIN Sulfa (Sulfonamide Antibiotics) Allergy (Unknown, Verified 03/04/24 10:29) makes her sick, vomit trimethoprim [From BACTRIM] Allergy (Unknown, Verified 03/04/24 10:29) NAUSEA & VOMITING dulaglutide [From Trulicity] Adverse Reaction (Severe, Verified 03/04/24 10:29) Diarrhea sulfamethoxazole [From BACTRIM] Adverse Reaction (Mild, Verified 03/04/24 10:29) NAUSEA & VOMITING lisinopril Allergy (Unknown, Uncoded 03/04/24 10:29) headaches HPI Comments Details: [53] YO [female] who is seen in consultation for T2DM at the request of PCP. Her most recent A1c was 13.9% 01/01/2024. The 3 A1cs done over the past year were in similar range. She had stopped her insulin because it was triggering weight gain and she was discouraged by this. Initially diagnosed with T2DM in [diagnosed age 29]. Had twins at age 27 and had gestational diabetes Was initially started on treatment with metformin had GI issues, glyburide ineffective, jardiance became dehydrated at the time had very high sugars, trulicity: diarrhea explosive/vomiting, ozempic wasn't covered by insurance Has been seen by weight management clinic and was diagnosed with an eating disorder (binge) She is currently seeing a therapist for this. Less binge eating at present. She has a prior history of thyroid cancer and had thyroidectomy. She has not been taking levothyroxine 200 mcg and is starting to become fatigued. She did have an order sent by her PCP. She was previously followed at [facility]. Current regimen Tresiba u200 96 units Humalog takes 20 units tid She has not been on a dexcom in awhile and hasn't been checking sugars consistently. Treats lows with []. [Checks] sugar after to ensure it is rising. [Treats] according to rule of 15's. Family history of T2DM in [mom, dad, grandmother]. Has eyes checked yearly, last eye exam [], [denies] retinopathy. [Denies ] neuropathy, last foot exam [], sees podiatry. [Has] nephropathy, on [ARB which was recently increased by her PCP.]. Macroalbuminuria 391 ramana/alb ratio:795 [Has] HLD, on [statin]. Last LDL [95] [Denies] CAD. Diet: [Trying to balance] [facility] Medical History Hypertensive retinopathy Diabetic retinopathy History of thyroid cancer Hypothyroid Uncontrolled diabetes mellitus with hyperglycemia Essential hypertension Hyperlipidemia Nicotine dependence, cigarettes, uncomplicated Sleep apnea Obesity (BMI 30-39.9) Insomnia Anxiety Depression Migraines B12 deficiency Vitamin D deficiency Hahn's palsy Sciatic leg pain Surgical History S/P thyroid biopsy History of thyroidectomy History of elbow surgery History of tubal ligation Family History Father HTN (hypertension) CVD (cardiovascular disease) Diabetes mellitus Mental health disorder Mother Diabetes mellitus Uterine cancer COPD (chronic obstructive pulmonary disease) Mental health disorder Maternal Grandmother Breast cancer Paternal Aunt Breast cancer Brother No problems noted. Sister Substance use disorder Mental health disorder Sister No problems noted. Sister No problems noted. Daughter No problems noted. Son No problems noted. Son No problems noted. Son No problems noted. Son No problems noted. Son No problems noted. Son No problems noted. Social History Household Members: Family Housing: Apartment Do you presently have visiting nurse or other home services: No Alcohol intake: never Patient Tobacco Use Status: Current everyday Tobacco user Tobacco use type: Cigarette Cigarettes Per Day: 10 Years Smoked: 20 e-Cigarette/Vaping Use: Never Used Second Hand Smoke Exposure: No service: No Current occupational status: disabled Current occupation: [employer] Cognitive needs: No Hearing needs: No Vision needs: Yes Physical Exam Vital Signs: Last Vital Signs Pulse 105 H 02/01/24 10:57 BP 160/90 H 02/01/24 10:57 BMI result Body Mass Index 39.3 Absence of Cushingoid features. Absence of acromegalic features. Neck exam reveals nl size thyroid about 15 gms. No thyroid nodules palpable. No carotid bruits present. Lungs CTA. Heart S1 S2, Reg R/R. No M/R/ G. Skin exam reveals absence of vitiligo or acanthosis nigricans. Abdominal exam reveals Soft NT/ND with NA BS. No organomegaly present. Const Other: Absence of Cushingoid features. Absence of acromegalic features. Neck exam reveals nl size thyroid about 15 gms. No thyroid nodules palpable. No carotid bruits present. Lungs CTA. Heart S1 S2, Reg R/R. No M/R G. Skin exam reveals absence of vitiligo or acanthosis nigricans. No edema Visual exam of foot performed. No ulcerations or open lesions. No inter digit maceration or fissuring. + onychomycosis, no callouses.nails not elongated, skin dry Sensation diminished to monofilament exam. Vibratory sensation is diminished with 128 Hz tuning fork. Neck Other: . Extrem Other: Visual exam of foot performed. No ulcerations or open lesions. No onchomycosis, no callouses.Pulses 2 + distally Sensation intact to monofilament exam. Vibratory sensation sensed is intact with 128 Hz tuning fork Results Reviewed Results Reviewed: Laboratory Last Values Glucose (Clinic) 227 mg/dL (60-115) H 02/01/24 11:02 Laboratory Tests 07/14/22 08/13/23 08/13/23 16:19 14:05 14:06 Plt Count Potassium Creatinine Estim Creat Clear Calc Estimated GFR Hgb A1c (Clinic) Calcium AST ALT 25-OH Vitamin D Total 24.8 L TSH 0.04 L > 100.00 H Free T4 1.42 < 0.42 L Urine Creatinine 49.17 Urine Microalbumin 391.0 Microalb/Creat Ratio 795.2 H 09/01/23 01/01/24 11:45 10:44 Plt Count 262 Potassium 4.2 Creatinine 1.02 Estim Creat Clear Calc 77.8 Estimated GFR 57 Hgb A1c (Clinic) 13.9 H Calcium 9.4 AST 17 ALT 13 25-OH Vitamin D Total TSH Free T4 Urine Creatinine Urine Microalbumin Microalb/Creat Ratio Assessment & Plan Assessment & Plan (1) Uncontrolled diabetes mellitus with hyperglycemia: Code(s): E11.65 - Type 2 diabetes mellitus with hyperglycemia Category: Medical Plan: Type 2 home diabetic with nephropathy and retinopathy with poor glycemic c ontrol. She has just restarted her basal bolus insulin and numbers are improving. Patient will get back on a Dexcom sensor and I will see her back in 4 weeks' time (2) History of thyroid cancer: Comment: (Papillary Thyroid Carcinoma - dx 2019 - s/p thyroidectomy) Code(s): Z85.850 - Personal history of malignant neoplasm of thyroid Category: Medical Plan: We will obtain records from [facility] and check blood work. Orders: Orders Thyroid Stimulating Hormone 02/01/24 Z85.850 - Personal history of malignant neoplasm of thyroid Thyroglobulin 02/01/24 Z85.850 - Personal history of malignant neoplasm of thyroid Thyroglobulin Antibodies 02/01/24 Z85.850 - Personal history of malignant neoplasm of thyroid Free T4 (Free Thyroxine) 02/01/24 Z85.850 - Personal history of malignant neoplasm of thyroid Coding Level of Care Code Tele New Pt Level 5 (93482) Complex EM visit Add On G2211 Diagnoses Uncontrolled diabetes mellitus with hyperglycemia E11.65 History of thyroid cancer Z85.850 Time Spent (min) 60 Comment Time spent reviewing labs/provider notes, face to face, chart doc
[2024-02-01 10:57] VITALS: BP 160/90; PULSE 105; BMI 39.3
[2024-02-01 11:11] LABS: Glucose, Whole Blood 227 mg/dL (60-115)
== END 2024-02-01 11:56 | disposition home or self-care (01) ==
PROVIDERS: PCP Nurse Practitioner Family; Visit Provider Nurse Practitioner Adult Health
DX: E11.65 Type 2 diabetes mellitus with hyperglycemia (principal); Z85.850 Personal history of malignant neoplasm of thyroid
CPT/HCPCS: 99205; G2211

== ENCOUNTER → 2024-02-01 10:53 | Outpatient (BNVA) | payer OTHER, SELFPAY | PROVIDERS: PCP Nurse Practitioner Family; Visit Provider Nurse Practitioner Adult Health | DX: E11.65 Type 2 diabetes mellitus with hyperglycemia (principal); E11.21 Type 2 diabetes mellitus with diabetic nephropathy; H35.039 Hypertensive retinopathy, unspecified eye; E11.319 Type 2 diabetes mellitus with unspecified diabetic retinopathy without macular edema; E78.5 Hyperlipidemia, unspecified; Z85.850 Personal history of malignant neoplasm of thyroid; Z83.3 Family history of diabetes mellitus; Z79.4 Long term (current) use of insulin | CPT/HCPCS: 82947 ==

== ENCOUNTER 2024-03-04 10:16 | Outpatient (REF) | payer OTHER, SELFPAY | END 2024-03-04 10:17 | disposition home or self-care (01) | LOC: HO.LAB 10:16 | PROVIDERS: PCP Nurse Practitioner Family; Visit Provider Nurse Practitioner Adult Health | DX: E11.65 Type 2 diabetes mellitus with hyperglycemia (principal); E03.9 Hypothyroidism, unspecified; Z71.89 Other specified counseling; Z79.4 Long term (current) use of insulin | CPT/HCPCS: 82947; 99212 ==

== ENCOUNTER → 2024-03-04 10:26 | Outpatient (AMB) | payer OTHER, SELFPAY ==
--- NOTE | 2024-03-04 10:29 | A.OFFVIS_ITS ---
Vital Signs 03/04/24 10:30 Height 5 ft 5 in Weight 246 lb 14.684 oz BMI 41.1 BP 140/90 H Blood Pressure Location Rt brachial Position Sitting Pulse 92 Pulse Source Pulse Oximeter Intake Visit Reasons: T2DM/LVM Intake Note: Patient presents today for a follow-up on Type 2 Diabetes Mellitus: Last Diabetic eye exam was on: Feb 08, 2024, getting injections. Last Podiatry exam was on: Does not see a Ultrasonic Hand Solderer Most recent HbA1c: 13.9%, 01/01/2024 Random Glucose- 184mg/dL, Today Power Line Installer Required: No Accompanied by: Self / Same As Patient Allergies doxycycline [DOXYCYCLINE] Allergy (Severe, Verified 03/05/24 11:33) THROAT SWELLING clindamycin [CLINDAMYCIN] Allergy (Intermediate, Verified 03/05/24 11:33) CHEST PAIN Sulfa (Sulfonamide Antibiotics) Allergy (Unknown, Verified 03/05/24 11:33) makes her sick, vomit trimethoprim [From BACTRIM] Allergy (Unknown, Verified 03/05/24 11:33) NAUSEA & VOMITING dulaglutide [From Trulicity] Adverse Reaction (Severe, Verified 03/05/24 11:33) Diarrhea sulfamethoxazole [From BACTRIM] Adverse Reaction (Mild, Verified 03/05/24 11:33) NAUSEA & VOMITING lisinopril Allergy (Unknown, Uncoded 03/04/24 10:29) headaches HPI Comments Details: 53 YO female who is seen in f/u for T2DM. Her most recent A1c was 13.9% 01/01/2024. The 3 A1cs done over the past year were in similar range. Since her last visit 1 month ago her sugars have been in good range with some hyperglycemia. She has been regularly taking her insulin Initially diagnosed with T2DM in [diagnosed age 29]. Had twins at age 27 and had gestational diabetes Was initially started on treatment with metformin had GI issues, glyburide ineffective, jardiance became dehydrated at the time had very high sugars, trulicity: diarrhea explosive/vomiting, ozempic wasn't covered by insurance Has been seen by weight management clinic and was diagnosed with an eating disorder (binge) She is currently seeing a therapist for this. Less binge eating at present. Current regimen Tresiba u200 96 units Humalog takes 20 units tid Onfreestyle escobar 2 sensor: Treats lows with []. [Checks] sugar after to ensure it is rising. [Treats] according to rule of 15's. Family history of T2DM in [mom, dad, grandmother]. Has eyes checked yearly, last eye exam [], [denies] retinopathy. [Denies ] neuropathy, last foot exam [], sees podiatry. [Has] nephropathy, on [ARB which was recently increased by her PCP.]. Macroalbuminuria 391 ramana/alb ratio:795 [Has] HLD, on [statin]. Last LDL [95] as measured on []. [Denies] CAD. Diet: [] Weight: [] [Had] diabetes education. [facility] Medical History Hypertensive retinopathy Diabetic retinopathy History of thyroid cancer Hypothyroid Uncontrolled diabetes mellitus with hyperglycemia Essential hypertension Hyperlipidemia Nicotine dependence, cigarettes, uncomplicated Sleep apnea Obesity (BMI 30-39.9) Insomnia Anxiety Depression Migraines B12 deficiency Vitamin D deficiency Hahn's palsy Sciatic leg pain Surgical History S/P thyroid biopsy History of thyroidectomy History of elbow surgery History of tubal ligation Family History Father HTN (hypertension) CVD (cardiovascular disease) Diabetes mellitus Mental health disorder Mother Diabetes mellitus Uterine cancer COPD (chronic obstructive pulmonary disease) Mental health disorder Maternal Grandmother Breast cancer Paternal Aunt Breast cancer Brother No problems noted. Sister Substance use disorder Mental health disorder Sister No problems noted. Sister No problems noted. Daughter No problems noted. Son No problems noted. Son No problems noted. Son No problems noted. Son No problems noted. Son No problems noted. Son No problems noted. Social History Household Members: Family Housing: Apartment Do you presently have visiting nurse or other home services: No Alcohol intake: never Patient Tobacco Use Status: Current everyday Tobacco user Tobacco use type: Cigarette Cigarettes Per Day: 10 Years Smoked: 20 e-Cigarette/Vaping Use: Never Used Second Hand Smoke Exposure: No service: No Current occupational status: disabled Current occupation: [employer] Cognitive needs: No Hearing needs: No Vision needs: Yes Physical Exam Vital Signs: Last Vital Signs Pulse 92 03/04/24 10:30 BP 140/90 H 03/04/24 10:30 BMI result Body Mass Index 41.1 Const Other: Absence of Cushingoid features. Absence of acromegalic features. Neck exam reveals nl size thyroid about 15 gms. No thyroid nodules palpable. No carotid bruits present. Lungs CTA. Heart S1 S2, Reg R/R. No M/R G. Skin exam reveals absence of vitiligo or acanthosis nigricans. No edema Results Reviewed Results Reviewed: Laboratory Last Values Glucose (Clinic) 184 mg/dL (60-115) H 03/04/24 10:37 Assessment & Plan Assessment & Plan (1) Uncontrolled diabetes mellitus with hyperglycemia: Code(s): E11.65 - Type 2 diabetes mellitus with hyperglycemia Category: Medical Plan: Diabetes with poor control we will try for Victoza and we will see her back for short interim visit to evaluate effectiveness Medications: New liraglutide (Victoza 3-Atul) inject 0.6mg subcutaneously daily; do not increase dosing if having side effects 9 mL 3RF 90 days E11.65 - Type 2 diabetes mellitus with hyperglycemia Changed From insulin degludec 86 units (0.43 mL) subcut BEDTIME 90 days 38.7 mL 0RF To insulin degludec (Tresiba FlexTouch U-200 insulin) 86 units (0.43 mL) subcut BEDTIME 38.7 mL 0RF 90 days From insulin lispro Future refills pending lab results 10 units (0.1 mL) subcut TID 60 mL 1RF To insulin lispro (Humalog KwikPen (U-100) Insulin) 10 units (0.1 mL) subcut BID 18 mL 1RF 90 days From insulin degludec Future refills pending lab results 95 units (0.475 mL) subcut BEDTIME 45 mL 0RF To insulin degludec (Tresiba FlexTouch U-200 insulin) 86 units (0.43 mL) subcut BEDTIME 38.7 mL 0RF 90 days From insulin lispro 10 units (0.1 mL) subcut BID 90 days 18 mL 1RF To insulin lispro (Humalog KwikPen (U-100) Insulin) 10 units (0.1 mL) subcut BID 18 mL 1RF 90 days From levothyroxine Future refills pending lab results 200 mcg PO DAILY 90 tabs 0RF E03.9 - Hypothyroidism, unspecified To levothyroxine Future refills pending lab results 200 mcg PO DAILY 90 tabs 0RF 90 days E03.9 - Hypothyroidism, unspecified Refilled levothyroxine Future refills pending lab results 200 mcg PO DAILY 90 tabs 0RF 90 days E03.9 - Hypothyroidism, unspecified Patient Instructions: The patient was counseled to achieve a target A1C of 7% (154 avg). Fasting blood sugars should be 90-130 in the morning and less than 180 two hours after meals. Reviewed the relationship between poor diabetic control and the of complications Coding Level of Care Code Est Pt Level 4 (96119) Complex EM visit Add On G2211 Diagnoses Uncontrolled diabetes mellitus with hyperglycemia E11.65
[2024-03-04 10:30] VITALS: BP 140/90; PULSE 92; BMI 41.1
[2024-03-04 10:40] LABS: Glucose, Whole Blood 184 mg/dL (60-115)
== END ==
PROVIDERS: PCP Nurse Practitioner Family; Visit Provider Nurse Practitioner Adult Health
DX: E11.65 Type 2 diabetes mellitus with hyperglycemia (principal)
CPT/HCPCS: 99214; G2211

== ENCOUNTER 2024-03-05 11:24 | Outpatient (AMB) | payer OTHER, SELFPAY ==
[2024-03-05 11:31] VITALS: BP 154/86; PULSE 94; O2SAT 98; BMI 41.4
--- NOTE | 2024-03-05 11:31 | HO.NEPHOV_ITS ---
Vital Signs 03/05/24 11:31 Height 5 ft 5 in Weight 249 lb BMI 41.4 BP 154/86 H Blood Pressure Location Lt brachial Position Sitting Pulse 94 Pulse Source Pulse Oximeter Pulse Oximetry (%) 98 Oxygen Delivery Method Room Air Intake Visit Reasons: Proteinuria/ LVM Director Digital Advertising Required: No Accompanied by: Self / Same As Patient Allergies doxycycline [DOXYCYCLINE] Allergy (Severe, Verified 03/05/24 11:33) THROAT SWELLING clindamycin [CLINDAMYCIN] Allergy (Intermediate, Verified 03/05/24 11:33) CHEST PAIN Sulfa (Sulfonamide Antibiotics) Allergy (Unknown, Verified 03/05/24 11:33) makes her sick, vomit trimethoprim [From BACTRIM] Allergy (Unknown, Verified 03/05/24 11:33) NAUSEA & VOMITING dulaglutide [From Trulicity] Adverse Reaction (Severe, Verified 03/05/24 11:33) Diarrhea sulfamethoxazole [From BACTRIM] Adverse Reaction (Mild, Verified 03/05/24 11:33) NAUSEA & VOMITING lisinopril Allergy (Unknown, Uncoded 03/04/24 10:29) headaches Medication List - Last Reconciled 03/05/24 by Con Mendez MD albuterol sulfate 90 mcg/actuation (Proventil HFA) 2 puffs inhalation Q4-6H PRN amlodipine 2.5 mg PO DAILY 90 days atorvastatin 40 mg PO BEDTIME 90 days blood pressure test kit-large As directed blood sugar diagnostic (FreeStyle Lite Strips) 1 strip miscellaneous QID blood-glucose meter (FreeStyle Lite Meter kit) As directed buspirone 15 mg (2 x 7.5 mg) PO BID 90 days cyclobenzaprine 10 mg PO BEDTIME PRN duloxetine 60 mg PO DAILY 90 days flash glucose scanning reader (FreeStyle [place]don 2 [place]) tid testing flash glucose sensor (FreeStyle Abdon 2 Sensor kit) tid testing fluticasone propionate 100 mcg/actuation (Flovent Diskus) 1 inh PO BID gabapentin 800 mg PO TID inhalational spacing device (Aerochamber Plus Z Stat spacer) As directed insulin degludec (Tresiba FlexTouch U-200 insulin) 86 units (0.43 mL) subcut BEDTIME 90 days insulin lispro (Humalog KwikPen (U-100) Insulin) 10 units (0.1 mL) subcut BID 90 days ipratropium-albuterol 0.5 mg-3 mg(2.5 mg base)/3 mL 3 mL inhalation Q6-8H PRN lancets (FreeStyle Lancets) Test blood sugar 3 times per day levothyroxine 200 mcg PO DAILY 90 days lidocaine 5% 1 patch topical DAILY PRN liraglutide (Victoza 3-Atul) inject 0.6mg subcutaneously daily; do not increase dosing if having side effects 90 days nicotine 1 patch transdermal Q24H nicotine (polacrilex) 2 mg buccal Q2H PRN 30 days omeprazole 20 mg PO DAILY 90 days pen needle, diabetic (BD Ultra-Fine Mini Pen Needle) Use to inject insulin 4 times per day quetiapine 50 mg PO BEDTIME 90 days valsartan 160 mg PO DAILY HPI Comments Details: . Tammy is a pleasant 53-year-old woman with a history of hypertension since 1999. Blood sugar has been suboptimally controlled. She has a history of hypertension as well. Her baseline creatinine used to be around 0.8 mg/dL which has gradually increased to 1.02 mg/dL. She was recently found to have proteinuria. She also had microscopic hematuria. She was seen by Urology and underwent cystoscopy which has essentially unremarkable. Diabetes mellitus is complicated by diabetic retinopathy. She was significant obesity. She was recently prescribed Victoza and she is yet to start this. [facility] Medical History Hypertensive retinopathy Diabetic retinopathy History of thyroid cancer Hypothyroid Uncontrolled diabetes mellitus with hyperglycemia Essential hypertension Hyperlipidemia Nicotine dependence, cigarettes, uncomplicated Sleep apnea Obesity (BMI 30-39.9) Insomnia Anxiety Depression Migraines B12 deficiency Vitamin D deficiency Hahn's palsy Sciatic leg pain Surgical History S/P thyroid biopsy History of thyroidectomy History of elbow surgery History of tubal ligation Family History Father HTN (hypertension) CVD (cardiovascular disease) Diabetes mellitus Mental health disorder Mother Diabetes mellitus Uterine cancer COPD (chronic obstructive pulmonary disease) Mental health disorder Maternal Grandmother Breast cancer Paternal Aunt Breast cancer Brother No problems noted. Sister Substance use disorder Mental health disorder Sister No problems noted. Sister No problems noted. Daughter No problems noted. Son No problems noted. Son No problems noted. Son No problems noted. Son No problems noted. Son No problems noted. Son No problems noted. Social History Household Members: Family Housing: Apartment Do you presently have visiting nurse or other home services: No Alcohol intake: never Patient Tobacco Use Status: Current everyday Tobacco user Tobacco use type: Cigarette Cigarettes Per Day: 10 Years Smoked: 20 e-Cigarette/Vaping Use: Never Used Second Hand Smoke Exposure: No service: No Current occupational status: disabled Current occupation: [employer] Cognitive needs: No Hearing needs: No Vision needs: Yes Review of Systems Const Denies fever(s) and Denies weight loss Card Denies chest pain Resp Denies cough and Denies hemoptysis GI Denies abdominal pain, Denies diarrhea and Denies nausea Musc Denies back pain Neuro Denies focal weakness Physical Exam Vital Signs: Last Vital Signs Pulse 94 03/05/24 11:31 BP 154/86 H 03/05/24 11:31 Pulse Ox 98 03/05/24 11:31 Oxygen Delivery Method Room Air 03/05/24 11:31 BMI result Body Mass Index 41.4 Const General: comfortable; No acute distress Nutritional Appearance: obese Orientation/consciousness: patient oriented x3 Eyes General: appearance normal, both eyes and all related structures Visual Spencer: normal visual spencer by confrontation Neck Neck: Yes supple and Yes no JVD Resp Effort & Inspection: normal respiratory effort and respiratory effort not decreased Auscultation: rhonchi Cardio Palpation: no palpable S3 and no palpable S4 Heart sounds: no rubs GI Inspection: Yes normal to inspection Palpation (GI): Soft to palpation Percussion: Yes normal to percussion Auscultation: normal bowel sounds General: Yes no CVA tenderness Back/Spine/Pelvis Back: no CVA tenderness Skin General skin exam: no petechiae and no purpura Neuro General: patient oriented x3 and no focal motor deficits Extrem General: No clubbing and No edema Results Reviewed Results Reviewed: December 2023 RIGHT KIDNEY: 14.4 x 4.1 x 5.1 cm (SAG x AP x TRV). The kidney is normal in size and echogenicity. There is a lobulated contour. Renal cortical thickness is normal. No calculi or focal parenchymal lesions. No hydronephrosis. LEFT KIDNEY: 13.5 x 5.2 x 6.3 cm (SAG x AP x TRV). The kidney is normal in size and echogenicity. There is a lobulated contour. Renal cortical thickness is normal. No calculi or focal parenchymal lesions. No hydronephrosis. Cystoscopy : Negative Nephrology Results: Urine Protein 30 (1+) mg/dL (Neg-Trace) H 01/15/24 Assessment & Plan Assessment & Plan (1) Essential hypertension: Code(s): I10 - Essential (primary) hypertension Category: Medical Plan 53-year-old woman with longstanding diabetes mellitus and hypertension with proteinuria. Given the history of diabetic retinopathy she likely has underlying diabetic nephropathy to explain the proteinuria. Nondiabetic causes seem less likely at this point. She has mild CKD most likely due to diabetic nephropathy. The blood pressure is suboptimal. Recommendation Increase amlodipine to 5 mg daily. Continue with valsartan . Discussed importance of weight loss. She should stay on low-sodium diet. Discussed importance of tight control blood sugar to maintain A1c less than 7%. She she would benefit from SGLT2 inhibitors. Workup as outlined below. She returned to the office once the baseline workup is completed. Orders: Orders Basic Metabolic Panel Today Con Mendez MD I10 - Essential (primary) hypertension, R80.9 - Proteinuria, unspecified Protein Electrophoresis, Serum Today Con Mendez MD I10 - Essenti al (primary) hypertension, R80.9 - Proteinuria, unspecified Total Protein Urine Random Today Con Mendez MD I10 - Essential (primary) hypertension, R80.9 - Proteinuria, unspecified Creatinine Urine Today Con Mendez MD I10 - Essential (primary) hypertension, R80.9 - Proteinuria, unspecified UA and rflx microscopic Today Con Mendez MD I10 - Essential (primary) hypertension, R80.9 - Proteinuria, unspecified Medications: Changed From cyclobenzaprine 10 mg PO BEDTIME 14 tabs 0RF To cyclobenzaprine 10 mg PO BEDTIME PRN Adarsh Johnson, GRIFFIN-BC From amlodipine 2.5 mg PO DAILY 90 days 90 tabs 0RF To amlodipine 5 mg PO DAILY 90 days 90 tabs 1RF Con Mendez MD Coding Level of Care Code New Pt Level 5 (82358) Diagnoses Essential hypertension I10
== END 2024-03-05 11:59 | disposition home or self-care (01) ==
PROVIDERS: PCP Nurse Practitioner Family; Visit Provider Internal Medicine Hypertension Specialist
DX: I12.9 Hypertensive chronic kidney disease with stage 1 through stage 4 chronic kidney disease, or unspecified chronic kidney disease (principal); E11.22 Type 2 diabetes mellitus with diabetic chronic kidney disease; N18.2 Chronic kidney disease, stage 2 (mild); R80.9 Proteinuria, unspecified
CPT/HCPCS: 99204

== ENCOUNTER → 2024-03-05 11:24 | Outpatient (BNVA) | payer OTHER, SELFPAY | PROVIDERS: PCP Nurse Practitioner Family; Visit Provider Internal Medicine Hypertension Specialist | DX: I10 Essential (primary) hypertension (principal) | CPT/HCPCS: 99202 ==

== ENCOUNTER 2024-03-06 12:30 | Outpatient (AMB) | payer OTHER, SELFPAY ==
--- NOTE | 2024-03-06 12:36 | A.OFFVIS_ITS ---
VS Expanded 03/06/24 12:37 03/06/24 12:55 Height 5 ft 5 in 5 ft 5 in Weight 248 lb 10.903 oz 249 lb BMI 41.4 41.4 Intake Visit Reasons: T2DM/LVM Allergies doxycycline [DOXYCYCLINE] Allergy (Severe, Verified 03/05/24 11:33) THROAT SWELLING clindamycin [CLINDAMYCIN] Allergy (Intermediate, Verified 03/05/24 11:33) CHEST PAIN Sulfa (Sulfonamide Antibiotics) Allergy (Unknown, Verified 03/05/24 11:33) makes her sick, vomit trimethoprim [From BACTRIM] Allergy (Unknown, Verified 03/05/24 11:33) NAUSEA & VOMITING dulaglutide [From Trulicity] Adverse Reaction (Severe, Verified 03/05/24 11:33) Diarrhea sulfamethoxazole [From BACTRIM] Adverse Reaction (Mild, Verified 03/05/24 11:33) NAUSEA & VOMITING lisinopril Allergy (Unknown, Uncoded 03/04/24 10:29) headaches Nutrition Presentation Details: Pt presents for MNT for T2DM BS Monitoring Most Recent Diabetes Results: No Data to Display WYJ-Ycguuhl-Dw.Jeor Equation Height: 5 ft 5 in Weight: 249 lb Resting Metabolic Rate: 1733.51 Calculated Activity Level: Sedentary Calories Needed to Maintain Weight: 2080.21 Diagnosis Nutrition problem #1: food nutri know defi As related to (etiology) #1: diagnosis As evidenced by (sign/symptom) #1: knowledge deficit of diet [facility] Medical History Hypertensive retinopathy Diabetic retinopathy History of thyroid cancer Hypothyroid Uncontrolled diabetes mellitus with hyperglycemia Essential hypertension Hyperlipidemia Nicotine dependence, cigarettes, uncomplicated Sleep apnea Obesity (BMI 30-39.9) Insomnia Anxiety Depression Migraines B12 deficiency Vitamin D deficiency Hahn's palsy Sciatic leg pain Surgical History S/P thyroid biopsy History of thyroidectomy History of elbow surgery History of tubal ligation Family History Father HTN (hypertension) CVD (cardiovascular disease) Diabetes mellitus Mental health disorder Mother Diabetes mellitus Uterine cancer COPD (chronic obstructive pulmonary disease) Mental health disorder Maternal Grandmother Breast cancer Paternal Aunt Breast cancer Brother No problems noted. Sister Substance use disorder Mental health disorder Sister No problems noted. Sister No problems noted. Daughter No problems noted. Son No problems noted. Son No problems noted. Son No problems noted. Son No problems noted. Son No problems noted. Son No problems noted. Social History Household Members: Family Housing: Apartment Do you presently have visiting nurse or other home services: No Alcohol intake: never Patient Tobacco Use Status: Current everyday Tobacco user Tobacco use type: Cigarette Cigarettes Per Day: 10 Years Smoked: 20 e-Cigarette/Vaping Use: Never Used Second Hand Smoke Exposure: No service: No Current occupational status: disabled Current occupation: [employer] Cognitive needs: No Hearing needs: No Vision needs: Yes Assessment & Plan Assessment & Plan (1) Uncontrolled diabetes mellitus with hyperglycemia: Code(s): E11.65 - Type 2 diabetes mellitus with hyperglycemia Category: Medical Plan: Wt: 113 Kg ( 03/27 ) Est kcal needs as per MSJ: 2100 (40% carb, 30% protein/fat) Est fluid needs as per 25-30 ml/d: 4000 Est prot per day as per 1 g/kg bw: 113 Recommend fiber intake : 8-10 g per day and gradually increase to 25-28 g per day for women and 35-38 g for men or as tolerated Recommend sodium intake per day : less than 2300 mg Educated patient on: ( R = reviewed V = verbalizes understanding N/R = needs review N/A = not applicable * Food sources of carbohydrate, adequate serving sizes and its role in various health conditions: R * Differences between complex carbohydrates a simple carbohydrates, role of fiber in diet: R * Lean protein sources of foods: R V NR * Differences between types of fats and role in diet (mono on saturated fat fatty acids, saturated fatty acids, trans fats): R V N/R * Food sources of sodium in salt and healthy modifications for heart health in kidney health: R V R/V * Vitamins and minerals: R V N/R * Healthy plate method concept: R * Physical activity: Benefits a precaution: R V N/R * Hypoglycemia protocol (rule of 15): R V N/R * Dietary prevention of Hyperglycemia: R V R/V Medications: Discontinued albuterol sulfate 90 mcg/actuation (Proventil HFA) Discontinued Reason: Patient no longer taking 2 puffs inhalation Q4-6H PRN 8.5 grams 0RF wheezing fluticasone propionate 100 mcg/actuation (Flovent Diskus) Discontinued Reason: Patient no longer taking 1 inh PO BID 180 ea 1RF nicotine (polacrilex) Discontinued Reason: Patient no longer taking 2 mg buccal Q2H 30 days PRN 100 ea 0RF nicotine cravings nicotine Discontinued Reason: Patient no longer taking 1 patch transdermal Q24H 28 ea 0RF Patient Instructions: Work on mindful eating, follow healthy plate method Drink water with meals , try infused water , reducing on sugars from beverages Coding Level of Care Code Nutr Indiv Intake (42219) Diagnoses Uncontrolled diabetes mellitus with hyperglycemia E11.65 Time Spent (min) 30
[2024-03-06 12:37] VITALS: BMI 41.4
[2024-03-13 12:00] VITALS: BMI 41.4
== END 2024-03-06 13:13 | disposition home or self-care (01) ==
PROVIDERS: PCP Nurse Practitioner Family; Visit Provider Dietitian, Registered
DX: E11.65 Type 2 diabetes mellitus with hyperglycemia (principal)

== ENCOUNTER → 2024-03-06 12:30 | Outpatient (BNVA) | payer OTHER, SELFPAY | PROVIDERS: PCP Nurse Practitioner Family; Visit Provider Dietitian, Registered | DX: E11.65 Type 2 diabetes mellitus with hyperglycemia (principal) | CPT/HCPCS: 97802 ==

== ENCOUNTER 2024-04-11 11:00 | Outpatient (AMB) | payer OTHER, SELFPAY ==
--- NOTE | 2024-04-11 11:02 | A.OFFVIS_ITS ---
Vital Signs 04/11/24 11:06 04/11/24 11:43 Height 5 ft 5 in Weight 249 lb 1.957 oz BMI 41.5 BP 148/86 H 140/78 H Blood Pressure Location Rt brachial Rt brachial Position Sitting Sitting Pulse 101 H Pulse Source Pulse Oximeter Intake Visit Reasons: T2DM/LVM Intake Note: Patient presents today for a follow-up on Type 2 Diabetes Mellitus: Last Diabetic eye exam was on: Feb 08, 2024, getting injections. Last Podiatry exam was on: Does not see a Cable Driller Most recent HbA1c: 6.7%, 04/11/2024 Random Glucose- 125 mg/dL, Today Fishing Rod Marker Required: No Accompanied by: Self / Same As Patient Allergies doxycycline [DOXYCYCLINE] Allergy (Severe, Verified 03/05/24 11:33) THROAT SWELLING clindamycin [CLINDAMYCIN] Allergy (Intermediate, Verified 03/05/24 11:33) CHEST PAIN Sulfa (Sulfonamide Antibiotics) Allergy (Unknown, Verified 03/05/24 11:33) makes her sick, vomit trimethoprim [From BACTRIM] Allergy (Unknown, Verified 03/05/24 11:33) NAUSEA & VOMITING dulaglutide [From Trulicity] Adverse Reaction (Severe, Verified 03/05/24 11:33) Diarrhea sulfamethoxazole [From BACTRIM] Adverse Reaction (Mild, Verified 03/05/24 11:33) NAUSEA & VOMITING lisinopril Allergy (Unknown, Uncoded 03/04/24 10:29) headaches HPI Comments Details: 53 YO female who is seen in f/u for T2DM. Her most recent A1c was 13.9% 01/01/2024. The 3 A1cs done over the past year were in similar range. Since her last visit 1 month ago her sugars have been in good range with some hyperglycemia. She has been regularly taking her insulin Initially diagnosed with T2DM in [diagnosed age 29]. Had twins at age 27 and had gestational diabetes Was initially started on treatment with metformin had GI issues, glyburide ineffective, jardiance became dehydrated at the time had very high sugars, trulicity: diarrhea explosive/vomiting, ozempic wasn't covered by insurance, dwaine felt poorly Has been seen by weight management clinic and was diagnosed with an eating disorder (binge) She is currently seeing a therapist for this. Less binge eating at present. Eventually would like to pursue bariatric surgery but not at this time Current regimen Tresiba u200 86 units Humalog 20 units tid before meals Onfreestyle escobar 2 sensor:avg 142 Treats lows with glucose tablets takes 1/2 to 1 Family history of T2DM in mom, dad, grandmother. Has eyes checked yearly, last eye exam 03/2024 injections for retinopathy has improved by 50% Has neuropathy numbness, tingling, occ burning pain last foot exam [], sees podiatry fairly regularly [Has] nephropathy, on ARB which was recently increased by her PCP.. Mac roalbuminuria 391 ramana/alb ratio:795 Sees nephrology [facility] [Has] HLD, on [statin]. Last LDL [95] [Denies] CAD. Has some neck, right shoulder pain chronic Diet: less binging trying to balance Weight: walks most days [facility] Medical History Hypertensive retinopathy Diabetic retinopathy History of thyroid cancer Hypothyroid Uncontrolled diabetes mellitus with hyperglycemia Essential hypertension Hyperlipidemia Nicotine dependence, cigarettes, uncomplicated Sleep apnea Obesity (BMI 30-39.9) Insomnia Anxiety Depression Migraines B12 deficiency Vitamin D deficiency Hahn's palsy Sciatic leg pain Surgical History S/P thyroid biopsy History of thyroidectomy History of elbow surgery History of tubal ligation Family History Father HTN (hypertension) CVD (cardiovascular disease) Diabetes mellitus Mental health disorder Mother Diabetes mellitus Uterine cancer COPD (chronic obstructive pulmonary disease) Mental health disorder Maternal Grandmother Breast cancer Paternal Aunt Breast cancer Brother No problems noted. Sister Substance use disorder Mental health disorder Sister No problems noted. Sister No problems noted. Daughter No problems noted. Son No problems noted. Son No problems noted. Son No problems noted. Son No problems noted. Son No problems noted. Son No problems noted. Social History Household Members: Family Housing: Apartment Do you presently have visiting nurse or other home services: No Alcohol intake: never Patient Tobacco Use Status: Current everyday Tobacco user Tobacco use type: Cigarette Cigarettes Per Day: 10 Years Smoked: 20 e-Cigarette/Vaping Use: Never Used Second Hand Smoke Exposure: No service: No Current occupational status: disabled Current occupation: [employer] Cognitive needs: No Hearing needs: No Vision needs: Yes Physical Exam Vital Signs: Last Vital Signs Pulse 101 H 04/11/24 11:06 BP 140/78 H 04/11/24 11:43 BMI result Body Mass Index 41.5 Const Other: Absence of Cushingoid features. Absence of acromegalic features. Neck exam reveals nl size thyroid about 15 gms. No thyroid nodules palpable. Heart S1 S2, Reg R/R. No M/R G. Skin exam reveals absence of vitiligo or acanthosis nigricans. Visual exam of foot performed. No ulcerations or open lesions. No inter digit maceration or fissuring. + onychomycosis, nails thickened and yellowed but not elongated, no callouses. Sensation diminshed to monofilament exam. Vibratory sensation is diminshed with 128 Hz tuning fork. Skin dry Results AMB Hemoglobin A1c AMB Hemoglobin A1c 6.7 % Last Edit by LIONEL Enriquez on 04/11/24 11:20 Results Reviewed Results Reviewed: Laboratory Last Values Glucose (Clinic) 125 mg/dL (60-115) H 04/11/24 11:09 Hgb A1c (Clinic) 6.7 % (4.0-6.0) H 04/11/24 11:03 Assessment & Plan Assessment & Plan (1) Uncontrolled diabetes mellitus with hyperglycemia: Code(s): E11.65 - Type 2 diabetes mellitus with hyperglycemia Category: Medical Plan: Type 2 diabetic with nephropathy, neuropathy and retinopathy with improving numbers on basal/bolus insulin. Patient has binge eating disorder and is working with therapist on this. Declined nutrition consult. Will try for mounjaro as she was unable to tolerate other GLP-1 receptor agonist and additional of GIP may help. Retinopathy is stable so will introduce gradually. Continue to f/u with nephrology on a regular basis. She was couunseled to reduce short acting insulin by 50% if lows on mounjaro The patient had an opportunity to ask questions regarding treatment plan. The patient expressed understanding and agreement with the above treatment plan. The patient is aware they should contact our office by phone for worsening glucose readings or for any low blood sugars which may warrant a change in diabetes medication. Compliance is encouraged with medications and any followup testing/consults which may have been ordered. Orders: Orders AMB Hemoglobin A1c Today E11.65 - Type 2 diabetes mellitus with hyperglycemia Referrals Podiatry Referral E11.65 - Type 2 diabetes mellitus with hyperglycemia Medications: New tirzepatide (Mounjaro) 2.5 mg (0.5 mL) subcut QWEEK 4 weeks 2 mL 4RF E11.65 - Type 2 diabetes mellitus with hyperglycemia insulin lispro 20 units (0.1 mL) subcut TID 90 days 27 mL 3RF E11.65 - Type 2 diabetes mellitus with hyperglycemia insulin degludec (Tresiba FlexTouch U-200 insulin) 86 units (0.43 mL) subcut DAILY 90 days 39 mL 4RF E11.65 - Type 2 diabetes mellitus with hyperglycemia Discontinued pen needle, diabetic (BD Ultra-Fine Mini Pen Needle) Discontinued Reason: Doctor's Order Use to inject insulin 4 times per day 400 ea 1RF E11.65 - Type 2 diabetes mellitus with hyperglycemia liraglutide (Victoza 3-Atul) Discontinued Reason: Doctor's Order inject 0.6mg subcutaneously daily; do not increase dosing if having side effects 90 days 9 mL 3RF E11.65 - Type 2 diabetes mellitus with hyperglycemia Patient Instructions: The patient was counseled to achieve a target A1C of 7% (154 avg). Fasting blood sugars should be 90-130 in the morning and less than 180 two hours after meals. Reviewed the relationship between poor diabetic control and the development of complications. The patient was counseled to always carry a source of sugar and on the rule of 15's: Take 3 glucose tablets and repeat again in 15 minutes if blood sugar is not in normal range. Continue to repeat every 15 minutes until blood sugar is normal. Wear closed toe shoes, never walk barefooted and inspect the feet daily. For any signs of infection or open wound patient you should notify your PCP or go to urgent care/ER. Recommended GOld Kinney DM foot cream Coding Level of Care Code Tele Est Pt Level 5 (73604) Complex EM visit Add On G2211 Diagnoses Uncontrolled diabetes mellitus with hyperglycemia E11.65 Time Spent (min) 55 Comment Time spent reviewing labs/provider notes, glucosereports, face to face, chart doc
[2024-04-11 11:06] VITALS: BP 148/86; PULSE 101; BMI 41.5
[2024-04-11 11:14] LABS: Glucose, Whole Blood 125 mg/dL (60-115)
[2024-04-11 11:43] VITALS: BP 140/78
== END 2024-04-11 11:42 | disposition home or self-care (01) ==
PROVIDERS: PCP Nurse Practitioner Family; Visit Provider Nurse Practitioner Adult Health
DX: E11.65 Type 2 diabetes mellitus with hyperglycemia (principal)
CPT/HCPCS: 99215; G2211

== ENCOUNTER → 2024-04-11 11:00 | Outpatient (BNVA) | payer OTHER, SELFPAY | PROVIDERS: PCP Nurse Practitioner Family; Visit Provider Nurse Practitioner Adult Health | DX: E11.65 Type 2 diabetes mellitus with hyperglycemia (principal); Z79.4 Long term (current) use of insulin | CPT/HCPCS: 82947; 83036; 99212 ==

== ENCOUNTER 2024-04-16 09:58 | Outpatient (AMB) | payer OTHER, SELFPAY ==
[2024-04-16 09:59] VITALS: BP 162/86; BMI 41.3
--- NOTE | 2024-04-16 09:59 | HO.NEPHOV_ITS ---
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 Accompanied by: Self / Same As Patient Allergies doxycycline [DOXYCYCLINE] Allergy (Severe, Verified 04/16/24 10:01) THROAT SWELLING clindamycin [CLINDAMYCIN] Allergy (Intermediate, Verified 04/16/24 10:01) CHEST PAIN Sulfa (Sulfonamide Antibiotics) Allergy (Unknown, Verified 04/16/24 10:01) makes her sick, vomit trimethoprim [From BACTRIM] Allergy (Unknown, Verified 04/16/24 10:01) NAUSEA & VOMITING dulaglutide [From Trulicity] Adverse Reaction (Severe, Verified 04/16/24 10:01) Diarrhea sulfamethoxazole [From BACTRIM] Adverse Reaction (Mild, Verified 04/16/24 10:01) NAUSEA & VOMITING lisinopril Allergy (Unknown, Uncoded 03/04/24 10:29) headaches Medication List - Last Reconciled 04/16/24 by Con Mendez MD amlodipine 5 mg PO DAILY 90 days atorvastatin 40 mg PO BEDTIME 90 days blood sugar diagnostic (FreeStyle Lite Strips) 1 strip miscellaneous QID blood-glucose meter (FreeStyle Lite Meter kit) As directed buspirone 15 mg (2 x 7.5 mg) PO BID 90 days cyclobenzaprine 10 mg PO BEDTIME PRN duloxetine 60 mg PO DAILY 90 days flash glucose scanning reader (FreeStyle Abdon 2 [place]) tid testing flash glucose sensor (FreeStyle Abdon 2 Sensor kit) tid testing gabapentin 800 mg PO TID inhalational spacing device (Aerochamber Plus Z Stat spacer) As directed insulin degludec (Tresiba FlexTouch U-200 insulin) 86 units (0.43 mL) subcut DAILY 90 days insulin lispro 20 units (0.1 mL) subcut TID 90 days ipratropium-albuterol 0.5 mg-3 mg(2.5 mg base)/3 mL 3 mL inhalation Q6-8H PRN lancets (FreeStyle Lancets) Test blood sugar 3 times per day levothyroxine 200 mcg PO DAILY 90 days lidocaine 5% 1 patch topical DAILY PRN omeprazole 20 mg PO DAILY 90 days quetiapine 50 mg PO BEDTIME 90 days tirzepatide (Mounjaro) 2.5 mg (0.5 mL) subcut QWEEK 4 weeks valsartan 160 mg PO DAILY HPI Comments Details: . Tammy is a pleasant 53-year-old woman with a history of hypertension since 1999. Blood sugar has been suboptimally controlled. She has a history of hypertension as well. Her baseline creatinine used to be around 0.8 mg/dL which has gradually increased to 1.02 mg/dL. She was recently found to have proteinuria. She also had microscopic hematuria. She was seen by Urology and underwent cystoscopy which has essentially unremarkable. Diabetes mellitus is complicated by diabetic retinopathy. She was significant obesity. She was recently prescribed Victoza and she is yet to start this. 04/16/24 Doing better Not taking Victoza Waiting to start Mounjaro Did not undergo blood and urine test [facility] Medical History Hypertensive retinopathy Diabetic retinopathy History of thyroid cancer Hypothyroid Uncontrolled diabetes mellitus with hyperglycemia Essential hypertension Hyperlipidemia Nicotine dependence, cigarettes, uncomplicated Sleep apnea Obesity (BMI 30-39.9) Insomnia Anxiety Depression Migraines B12 deficiency Vitamin D deficiency Hahn's palsy Sciatic leg pain Surgical History S/P thyroid biopsy History of thyroidectomy History of elbow surgery History of tubal ligation Family History Father HTN (hypertension) CVD (cardiovascular disease) Diabetes mellitus Mental health disorder Mother Diabetes mellitus Uterine cancer COPD (chronic obstructive pulmonary disease) Mental health disorder Maternal Grandmother Breast cancer Paternal Aunt Breast cancer Brother No problems noted. Sister Substance use disorder Mental health disorder Sister No problems noted. Sister No problems noted. Daughter No problems noted. Son No problems noted. Son No problems noted. Son No problems noted. Son No problems noted. Son No problems noted. Son No problems noted. Social History Household Members: Family Housing: Apartment Do you presently have visiting nurse or other home services: No Alcohol intake: never Patient Tobacco Use Status: Current everyday Tobacco user Tobacco use type: Cigarette Cigarettes Per Day: 10 Years Smoked: 20 e-Cigarette/Vaping Use: Never Used Second Hand Smoke Exposure: No service: No Current occupational status: disabled Current occupation: [employer] Cognitive needs: No Hearing needs: No Vision needs: Yes Physical Exam Vital Signs: Last Vital Signs BP 162/86 H 04/16/24 09:59 BMI result Body Mass Index 41.3 Const General: comfortable; No acute distress Nutritional Appearance: obese Orientation/consciousness: patient oriented x3 Eyes General: appearance normal, both eyes and all related structures Visual Spencer: normal visual spencer by confrontation Neck Neck: Yes supple and Yes no JVD Resp Effort & Inspection: normal respiratory effort and respiratory effort not decreased Auscultation: rhonchi Cardio Palpation: no palpable S3 and no palpable S4 Heart sounds: no rubs GI Inspection: Yes normal to inspection Palpation (GI): Soft to palpation Percussion: Yes normal to percussion Auscultation: normal bowel sounds General: Yes no CVA tenderness Back/Spine/Pelvis Back: no CVA tenderness Skin General skin exam: no petechiae and no purpura Neuro General: patient oriented x3 and no focal motor deficits Extrem General: No clubbing and No edema Results Reviewed Nephrology Results: No Data to Display Assessment & Plan Assessment & Plan (1) Essential hypertension: Code(s): I10 - Essential (primary) hypertension Category: Medical Plan 53-year-old woman with longstanding diabetes mellitus and hypertension with proteinuria. Given the history of diabetic retinopathy she likely has underlying diabetic nephropathy to explain the proteinuria. Nondiabetic causes seem less likely at this point. She has mild CKD most likely due to diabetic nephropathy. The blood pressure is suboptimal. Recommendation Increase amlodipine to 10 mg daily. Continue with valsartan . Discussed importance of weight loss. She should stay on low-sodium diet. Discussed importance of tight control blood sugar to maintain A1c less than 7%. She she would benefit from SGLT2 inhibitors. Workup reordered. Medications: Changed From amlodipine 5 mg PO DAILY 90 days 90 tabs 1RF To amlodipine 10 mg PO DAILY 90 days 90 tabs 1RF Coding Level of Care Code Est Pt Level 4 (34499) Diagnoses Essential hypertension I10
== END 2024-04-16 10:14 | disposition home or self-care (01) ==
PROVIDERS: PCP Nurse Practitioner Family; Visit Provider Internal Medicine Hypertension Specialist
DX: I10 Essential (primary) hypertension (principal)
CPT/HCPCS: 99214

== ENCOUNTER → 2024-04-16 09:58 | Outpatient (BNVA) | payer OTHER, SELFPAY | PROVIDERS: PCP Nurse Practitioner Family; Visit Provider Internal Medicine Hypertension Specialist | DX: E11.65 Type 2 diabetes mellitus with hyperglycemia (principal); E11.319 Type 2 diabetes mellitus with unspecified diabetic retinopathy without macular edema; R80.9 Proteinuria, unspecified; I10 Essential (primary) hypertension | CPT/HCPCS: 99212 ==

== ENCOUNTER 2024-06-25 14:00 | Outpatient (AMB) | payer OTHER, SELFPAY ==
--- NOTE | 2024-06-25 14:02 | A.OFFVIS_ITS ---
Vital Signs 06/25/24 14:06 Height 5 ft 5 in Weight 242 lb 8.136 oz BMI 40.4 BP 140/78 H Blood Pressure Location Rt brachial Position Sitting Pulse 93 Pulse Source Pulse Oximeter Intake Visit Reasons: DM Intake Note: Patient presents today for a follow-up on Type 2 Diabetes Mellitus: Last Diabetic eye exam was on: Feb 08, 2024, getting eyes injections. Last Podiatry exam was on: Does not see a Rug Washer Most recent HbA1c: 6.7%, 04/11/2024 Random Glucose- 132 mg/dL, Today Military Nurse Required: No Accompanied by: Self / Same As Patient Allergies doxycycline [DOXYCYCLINE] Allergy (Severe, Verified 06/25/24 14:09) THROAT SWELLING clindamycin [CLINDAMYCIN] Allergy (Intermediate, Verified 06/25/24 14:09) CHEST PAIN Sulfa (Sulfonamide Antibiotics) Allergy (Unknown, Verified 06/25/24 14:09) makes her sick, vomit trimethoprim [From BACTRIM] Allergy (Unknown, Verified 06/25/24 14:09) NAUSEA & VOMITING dulaglutide [From Trulicity] Adverse Reaction (Severe, Verified 06/25/24 14:09) Diarrhea sulfamethoxazole [From BACTRIM] Adverse Reaction (Mild, Verified 06/25/24 14:09) NAUSEA & VOMITING lisinopril Allergy (Unknown, Uncoded 06/25/24 14:09) headaches Medication List - Last Reconciled 06/25/24 by Philomena Adam, MIKAELA amlodipine 10 mg PO DAILY 90 days atorvastatin 40 mg PO BEDTIME 90 days blood sugar diagnostic (FreeStyle Lite Strips) 1 strip miscellaneous QID blood-glucose meter (FreeStyle Lite Meter kit) As directed buspirone 15 mg (2 x 7.5 mg) PO BID 90 days cyclobenzaprine 10 mg PO BEDTIME PRN duloxetine 60 mg PO DAILY 90 days empagliflozin (Jardiance) 10 mg PO DAILY flash glucose scanning reader (FreeStyle Abdon 2 [place]) tid testing flash glucose sensor (FreeStyle Abdon 2 Sensor kit) USE TO MONITOR BLOOD SUGAR TWICE DAILY, CHANGE EVERY 14 DAYS. gabapentin 800 mg PO TID glucose 4 grams PO Q15M PRN inhalational spacing device (Aerochamber Plus Z Stat spacer) As directed insulin degludec (Tresiba FlexTouch U-200 insulin) 32 units subcut DAILY insulin lispro 8 units twice daily subcutaneously 2 times a day; 30 days insulin lispro 12 subcutaneously 3 times a day; ipratropium-albuterol 0.5 mg-3 mg(2.5 mg base)/3 mL 3 mL inhalation Q6-8H PRN lancets (FreeStyle Lancets) Test blood sugar 3 times per day levothyroxine 200 mcg PO DAILY 90 days lidocaine 5% 1 patch topical DAILY PRN omeprazole 20 mg PO DAILY 90 days quetiapine 50 mg PO BEDTIME 90 days tirzepatide (Mounjaro) 2.5 mg (0.5 mL) subcut QWEEK 4 weeks tirzepatide (Mounjaro) 5 mg (0.5 mL) subcut QWEEK 28 days valsartan 160 mg PO DAILY HPI Comments Details: 53 YO female who is seen in f/u for T2DM. She was last seen 04/11/2024 with an A1c of 6.7% down from A1c 13.9% 01/01/2024. She has a history of thyroid papillary carcinoma status post thyroidectomy 2018. Records have him requested from [facility]. Last tsh >100.0 08/13/23 when she was not taking levothyroxine. Initially diagnosed with T2DM in [diagnosed age 29]. Had twins at age 27 and had gestational diabetes Was initially started on treatment with metformin had GI issues, glyburide ineffective, jardiance became dehydrated at the time had very high sugars, trulicity: diarrhea explosive/vomiting, ozempic wasn't covered by insurance, mariusz toza felt poorly She c/o 3 day h/o right sided abd pain/upper flank pain 7-01/11 worsened by activity has some mild nausea (which she reports no increase) no vomiting, had urinary burning yesterday for a short period Has been seen by weight management clinic and was diagnosed with an eating disorder (binge) She is currently seeing a therapist for this. Less binge eating at present. Skips meals at times. Eventually would like to pursue bariatric surgery but not at this time Breakfast egg,occ sausage, avacado toast, skips lunch, dinner fish/protein, rice and veg Current regimen Tresiba u200 40 units Humalog 12 units 1-2 times per day before meals Treats lows with juice, eats something, 15 carb grams of marshmellows Has occasional low Family history of T2DM in mom, dad, grandmother. Has retinopathy Has eyes checked yearly, last eye exam 03/2024 injections for retinopathy has improved by 50% Has neuropathy numbness, tingling, occ burning pain last foot exam today no recent podiatry Has nephropathy, on ARB which was recently increased by her PCP.. Macroalbuminuria 391 ramana/alb ratio:795 Sees nephrology [facility] [Has] HLD, on [statin]. Last LDL [95] [Denies] CAD. Has some neck, right shoulder pain chronic Diet: less binging since on mounjaro, trying to balance Weight: walks most days [facility] Medical History Hypertensive retinopathy Diabetic retinopathy History of thyroid cancer Hypothyroid Uncontrolled diabetes mellitus with hyperglycemia Essential hypertension Hyperlipidemia Nicotine dependence, cigarettes, uncomplicated Sleep apnea Obesity (BMI 30-39.9) Insomnia Anxiety Depression Migraines B12 deficiency Vitamin D deficiency Hahn's palsy Sciatic leg pain Surgical History S/P thyroid biopsy History of thyroidectomy History of elbow surgery History of tubal ligation Family History Father HTN (hypertension) CVD (cardiovascular disease) Diabetes mellitus Mental health disorder Mother Diabetes mellitus Uterine cancer COPD (chronic obstructive pulmonary disease) Mental health disorder Maternal Grandmother Breast cancer Paternal Aunt Breast cancer Brother No problems noted. Sister Substance use disorder Mental health disorder Sister No problems noted. Sister No problems noted. Daughter No problems noted. Son No problems noted. Son No problems noted. Son No problems noted. Son No problems noted. Son No problems noted. Son No problems noted. Social History Household Members: Family Housing: Apartment Do you presently have visiting nurse or other home services: No Alcohol intake: never Patient Tobacco Use Status: Current everyday Tobacco user Tobacco use type: Cigarette Cigarettes Per Day: 10 Years Smoked: 20 e-Cigarette/Vaping Use: Never Used Second Hand Smoke Exposure: No service: No Current occupational status: disabled Current occupation: [employer] Cognitive needs: No Hearing needs: No Vision needs: Yes Physical Exam Const Other: mild tenderness to palpation right upper quadrant abdomen and flank. Assessment & Plan Assessment & Plan (1) Uncontrolled diabetes mellitus with hyperglycemia: Code(s): E11.65 - Type 2 diabetes mellitus with hyperglycemia Category: Medical Plan: 53-year-old type 2 diabetic with nephropathy followed by Nephrology, neuropathy and retinopathy most recent A1c was 6.7% on 04/11/2024 with improved glycemic control. New dosing: Tresiba 32 units humalog 8-10 twice daily with meals mounjaro 2.5mg can consider increase to 5mg weekly after episode of abdominal pain has been worked up and resolved, Has h/o thyroidectomy for papillary thyroid carcinoma 2017. She had reported she was followed at [facility] but we were unable to obtain any endo records from [facility]. Today she reports she had surgery there but was following with Dr. Malik here. She was out of thyroid medication last fall when she had an elevated tsh. She ran out again but has been on for at least a week, We will obtain pathology report and opera tive report from [facility] and have her see, Dr. Tirado in 5 weeks with labs before hand, (2) Abdominal pain: Code(s): R10.9 - Unspecified abdominal pain Plan: She will go to ER for eval today Medications: Changed From insulin degludec (Tresiba FlexTouch U-200 insulin) 40 units subcut DAILY E11.65 - Type 2 diabetes mellitus with hyperglycemia To insulin degludec (Tresiba FlexTouch U-200 insulin) 32 units subcut DAILY E11.65 - Type 2 diabetes mellitus with hyperglycemia From insulin lispro 8 units twice daily subcutaneously 2 times a day; E11.65 - Type 2 diabetes mellitus with hyperglycemia To insulin lispro 8 units twice daily subcutaneously 2 times a day; 30 days 6 mL 6RF E11.65 - Type 2 diabetes mellitus with hyperglycemia Refilled insulin lispro 8 units twice daily subcutaneously 2 times a day; 30 days 6 mL 6RF E11.65 - Type 2 diabetes mellitus with hyperglycemia On Hold tirzepatide (Mounjaro) Hold Comment: Dose Change 2.5 mg (0.5 mL) subcut QWEEK 4 weeks 2 mL 4RF E11.65 - Type 2 diabetes mellitus with hyperglycemia Patient Instructions: rule of 15's Coding Level of Care Code Est Pt Level 4 (83870) Complex EM visit Add On G2211 Diagnoses Uncontrolled diabetes mellitus with hyperglycemia E11.65 Abdominal pain R10.9 Time Spent (min) 35 Comment chart review, lab review, exam face to fact
[2024-06-25 14:06] VITALS: BP 140/78; PULSE 93; BMI 40.4
[2024-06-25 14:16] LABS: Glucose, Whole Blood 132 mg/dL (60-115)
== END 2024-06-25 14:54 | disposition home or self-care (01) ==
PROVIDERS: PCP Nurse Practitioner Family; Visit Provider Nurse Practitioner Adult Health
DX: E11.65 Type 2 diabetes mellitus with hyperglycemia (principal); R10.9 Unspecified abdominal pain
CPT/HCPCS: 99214; G2211

== ENCOUNTER → 2024-06-25 14:00 | Outpatient (BNVA) | payer OTHER, SELFPAY | PROVIDERS: PCP Nurse Practitioner Family; Visit Provider Nurse Practitioner Adult Health | DX: E11.65 Type 2 diabetes mellitus with hyperglycemia (principal); R10.9 Unspecified abdominal pain | CPT/HCPCS: 82947; 99212 ==

== ENCOUNTER 2024-06-25 15:07 | Emergency (ER) | payer OTHER, SELFPAY ==
[2024-06-25 15:14] VITALS: BP 152/82; PULSE 93; RESP 18; TEMP 36.9; O2SAT 99; BMI 40.9
--- NOTE | 2024-06-25 15:14 | ED.GENADULT ---
HPI - General Adult General Chief complaint: Abdominal Pain Stated complaint: Pain Sent by Endocrinology Time Seen by Provider: 06/25/24 19:57 History of Present Illness ED Provider: Rafi Donis HPI narrative: Patient left before completing treatment. Related Data Home Medications ?Medication ?Instructions ?Recorded ?Confirmed cyclobenzaprine 10 mg tablet 10 mg PO BEDTIME PRN 03/05/24 06/25/24 insulin degludec 200 unit/mL (3 32 unit subcut DAILY 06/25/24 06/25/24 mL) subcutaneous pen (Tresiba FlexTouch U-200 insulin) Previous Rx's ?Medication ?Instructions ?Recorded flash glucose scanning reader #1 ea 01/05/22 (FreeStyle Abdon 2 [place]) ipratropium 0.5 mg-albuterol 3 mg 3 ml inhalation Q6-8H PRN wheezing 03/28/22 (2.5 mg base)/3 mL nebulization #90 mL soln inhalational spacing device #1 ea 04/29/22 (Aerochamber Plus Z Stat spacer) blood sugar diagnostic (FreeStyle 1 strip miscellaneous QID #300 01/29/24 Lite Strips) strips blood-glucose meter (FreeStyle #1 ea 01/29/24 Lite Meter kit) lancets 28 gauge (FreeStyle #300 ea 01/29/24 Lancets) atorvastatin 40 mg tablet 40 mg PO BEDTIME 90 days #90 tabs 03/12/24 gabapentin 800 mg tablet 800 mg PO TID #90 tabs 03/12/24 lidocaine 5 % topical patch 1 patch topical DAILY PRN pain #15 03/12/24 ea omeprazole 20 mg capsule,delayed 20 mg PO DAILY 90 days #90 caps 03/12/24 release tirzepatide 2.5 mg/0.5 mL 2.5 mg (0.5 mL) subcut QWEEK 4 04/11/24 subcutaneous pen injector weeks #2 mL (Sher) amlodipine 10 mg tablet 10 mg PO DAILY 90 days #90 tabs 04/16/24 glucose 4 gram chewable tablet 4 g PO Q15M PRN hypoglycemia #30 05/19/24 tabs empagliflozin 10 mg tablet 10 mg PO DAILY #90 tabs 06/05/24 (Jardiance) flash glucose sensor (FreeStyle #6 kits 06/05/24 Abdon 2 Sensor kit) buspirone 7.5 mg tablet 15 mg (2 x 7.5 mg) PO BID 90 days 06/06/24 #360 tabs duloxetine 60 mg capsule,delayed 60 mg PO DAILY 90 days #90 caps 06/06/24 release quetiapine 50 mg tablet 50 mg PO BEDTIME 90 days #90 tabs 06/06/24 valsartan 160 mg tablet 160 mg PO DAILY #90 tabs 06/06/24 levothyroxine 200 mcg tablet 200 mcg PO DAILY 90 days #90 tabs 06/17/24 insulin lispro 200 unit/mL (3 mL) See Rx Instructions subcut BID 30 06/25/24 subcutaneous pen days #6 mL Allergies Allergy/AdvReac Type Severity Reaction Status Date / Time doxycycline [DOXYCYCLINE] Allergy Severe THROAT Verified 06/25/24 15:16 SWELLING clindamycin [CLINDAMYCIN] Allergy Intermediate CHEST PAIN Verified 06/25/24 15:16 Sulfa (Sulfonamide Allergy Unknown makes her Verified 06/25/24 15:16 Antibiotics) sick, vomit trimethoprim [From BACTRIM] Allergy Unknown NAUSEA & Verified 06/25/24 15:16 VOMITING dulaglutide [From Trulicity] AdvReac Severe Diarrhea Verified 06/25/24 15:16 sulfamethoxazole AdvReac Mild NAUSEA & Verified 06/25/24 15:16 [From BACTRIM] VOMITING lisinopril Allergy Unknown headaches Uncoded 06/25/24 14:09 [facility] Past Medical History Medical History Hypertensive retinopathy Diabetic retinopathy History of thyroid cancer Hypothyroid Uncontrolled diabetes mellitus with hyperglycemia Essential hypertension Hyperlipidemia Nicotine dependence, cigarettes, uncomplicated Sleep apnea Obesity (BMI 30-39.9) Insomnia Anxiety Depression Migraines B12 deficiency Vitamin D deficiency Hahn's palsy Sciatic leg pain Surgical History S/P thyroid biopsy History of thyroidectomy History of elbow surgery History of tubal ligation Family History Family History Father HTN (hypertension) CVD (cardiovascular disease) Diabetes mellitus Mental health disorder Mother Diabetes mellitus Uterine cancer COPD (chronic obstructive pulmonary disease) Mental health disorder Maternal Grandmother Breast cancer Paternal Aunt Breast cancer Brother No problems noted. Sister Substance use disorder Mental health disorder Sister No problems noted. Sister No problems noted. Daughter No problems noted. Son No problems noted. Son No problems noted. Son No problems noted. Son No problems noted. Son No problems noted. Son No problems noted. Social History Social History Household Members: Family Housing: Apartment Do you presently have visiting nurse or other home services: No Alcohol intake: never Patient Tobacco Use Status: Current everyday Tobacco user Tobacco use type: Cigarette Cigarettes Per Day: 10 Years Smoked: 20 e-Cigarette/Vaping Use: Never Used Second Hand Smoke Exposure: No Advance Directives: No Advance Directives Information Provided: No Do you have a plan to hurt others: No Plan service: No Current occupational status: disabled Current occupation: [employer] Cognitive needs: No Hearing needs: No Vision needs: Yes Physical Exam ED Vital Signs: Vital Signs - 24 hr 06/25/24 15:14 06/25/24 19:38 Temperature 98.4 F 98.3 F Pulse Rate 93 85 Respiratory Rate 18 16 Blood Pressure 152/82 H 117/75 Pulse Oximetry 99 97 Oxygen Delivery Method Room Air Room Air BMI result Body Mass Index 40.9 Course Course Course Narrative: This is a rapid medical exam performed by Dorothy Marr NP: Additional HPI, ROS, PE not included below will be deferred to primary provider. 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 Denies hematuria. Nausea without vomiting or diarreha. Denies fevers. Plan; labs, UA Medical Decision Making Medical Decision Making MDM Narrative: Went to the bed to see patient and patient was not there. I want to both bathrooms and the waiting room patient was not present. Patient eloped before completion of treatment. Lab Data 06/25/24 15:34 06/25/24 15:34 Labs: Lab Results 06/25/24 Range/Units 15:34 WBC 9.4 (4.8-10.8) X10*3/uL RBC 4.91 (4.20-5.50) X10*6/uL Hgb 14.7 (12.0-16.0) g/dl Hct 42.7 (37.0-47.0) % MCV 87.0 (80.0-98.0) fL MCH 29.9 (27.0-33.0) pg MCHC 34.4 (31.0-35.0) g/dl RDW 12.7 (11.0-16.0) % Plt Count 271 (160-400) X10*3/uL MPV 10.3 (9.4-12.3) fL Immature Gran % (Auto) 0.2 (0.0-0.4) % Neut % (Auto) 53.0 (45-73) % Lymph % (Auto) 35.3 (20-40) % [place] % (Auto) 6.8 (2-11) % Eos % (Auto) 3.5 (0-4) % Baso % (Auto) 1.2 (0-2) % Lymph # (Auto) 3.3 (1.2-4.9) X10*3/uL [place] # (Auto) 0.6 (0.1-1.2) X10*3/uL Eos # (Auto) 0.3 (0.0-0.4) X10*3/uL Baso # (Auto) 0.1 (0.0-0.2) X10*3/uL Abs Immat Gran (auto) 0.02 (0.00-0.03) X10*3/uL Absolute Neuts (auto) 5.0 (2.0-8.3) x10*3/uL Absolute Nucleated RBC 0.000 (0.0-0.012) X10*3/uL Nucleated RBC % (auto) 0.0 (0.0-0.2) /100WBC PT 11.8 (10.9-12.4) SEC INR 1.0 (0.9-1.1) Sodium 140 (135-145) mmol/L Potassium 4.7 (3.3-5.1) mmol/L Chloride 106 (96-108) mmol/L Carbon Dioxide 28 (22-29) mmol/L Anion Gap 11 L (12-20) BUN 18 H (9-16) mg/dL Creatinine 0.90 (0.5-1.4) mg/dL Estim Creat Clear Calc 88.8 Estimated GFR > 60 Random Glucose 140 H (60-115) mg/dL Calcium 9.1 (8.4-10.2) mg/dL Total Bilirubin 0.4 (0.0-1.0) mg/dL AST 22 (5-31) U/L ALT 9 (0-31) U/L Alkaline Phosphatase 76 (39-117) U/L Total Protein 7.5 (6.5-8.0) g/dL Albumin 3.6 (3.5-5.0) g/dL Lipase 39 (8-78) U/L Discharge Plan Discharge Clinical Impression: Abdominal pain Patient Disposition: Left W/O Completing Treatment Prescriptions: No Action (DME) FreeStyle Abdon 2 [place] Misc See Rx Instructions .Route Qty: 1 4RF Rx Instructions: tid testing ipratropium-albuterol 0.5 mg-3 mg(2.5 mg base)/3 mL solution for nebulization 3 ml inhalation Q6-8H PRN (Reason: wheezing) Qty: 90 0RF (DME) blood-glucose meter [FreeStyle Lite Meter] Kit See Rx Instructions .Route Qty: 1 0RF Rx Instructions: As directed (DME) lancets [FreeStyle Lancets] 28 gauge misc See Rx Instructions .Route Qty: 300 1RF Rx Instructions: Test blood sugar 3 times per day FreeStyle Lite Strips Strip 1 strip miscellaneous QID Qty: 300 1RF atorvastatin 40 mg tablet 40 mg PO BEDTIME 90 Days Qty: 90 1RF gabapentin 800 mg tablet 800 mg PO TID Qty: 90 4RF lidocaine 5 % adhesive patch,medicated 1 patch topical DAILY PRN (Reason: pain) Qty: 15 0RF Rx Instructions: leave on most painful area for up to 12 hrs omeprazole 20 mg capsule,delayed release(DR/EC) 20 mg PO DAILY 90 Days Qty: 90 1RF glucose 4 gram tablet,chewable 4 g PO Q15M PRN (Reason: hypoglycemia) Qty: 30 6RF Rx Instructions: until symptoms of low blood sugar are controlled (DME) FreeStyle Abdon 2 Sensor Kit See Rx Instructions .ROUTE .COMPLEX Qty: 6 1RF Dose Instruction: USE TO MONITOR BLOOD SUGAR TWICE DAILY, CHANGE EVERY 14 DAYS. Rx Instructions: USE TO MONITOR BLOOD SUGAR TWICE DAILY, CHANGE EVERY 14 DAYS. Jardiance 10 mg tablet 10 mg PO DAILY Qty: 90 1RF duloxetine 60 mg capsule,delayed release(DR/EC) 60 mg PO DAILY 90 Days Qty: 90 0RF buspirone 7.5 mg tablet 15 mg PO BID 90 Days Qty: 360 0RF quetiapine 50 mg tablet 50 mg PO BEDTIME 90 Days Qty: 90 0RF valsartan 160 mg tablet 160 mg PO DAILY Qty: 90 0RF levothyroxine 200 mcg tablet 200 mcg PO DAILY 90 Days Qty: 90 0RF Rx Instructions: Future refills pending lab results (DME) Aerochamber Plus Z Stat Spacer See Rx Instructions .Route Qty: 1 0RF Rx Instructions: As directed amlodipine 10 mg tablet 10 mg PO DAILY 90 Days Qty: 90 1RF Mounjaro 2.5 mg/0.5 mL pen injector 2.5 mg subcut QWEEK 28 Days Qty: 2 4RF insulin lispro 200 unit/mL (3 mL) insulin pen See Rx Instructions subcut BID 30 Days Qty: 6 6RF Rx Instructions: 8 units twice daily subcutaneously 2 times a day; insulin degludec [Tresiba FlexTouch U-200] 200 unit/mL (3 mL) insulin pen 32 unit subcut DAILY cyclobenzaprine 10 mg tablet 10 mg PO BEDTIME PRN Discharge Date/Time: 06/25/24 20:23
[2024-06-25 15:42] LABS: MANUAL DIFF FLAG NO
[2024-06-25 15:45] LABS: Basophils Absolute Auto 0.1 X10*3/uL (0.0-0.2); Basophils Percent Auto 1.2 % (0-2); Eosinophils Absolute Auto 0.3 X10*3/uL (0.0-0.4); Eosinophils Percent Auto 3.5 % (0-4); Hematocrit 42.7 % (37.0-47.0); Hemoglobin 14.7 g/dl (12.0-16.0); Imm Gran Abs Auto 0.02 X10*3/uL (0.00-0.03); Imm Gran Pct Auto 0.2 % (0.0-0.4); Lymphocytes Absolute Auto 3.3 X10*3/uL (1.2-4.9); Lymphocytes Percent Auto 35.3 % (20-40); Mean Corpuscular HGB Conc 34.4 g/dl (31.0-35.0); Mean Corpuscular Hemoglobin 29.9 pg (27.0-33.0); Mean Platelet Volume 10.3 fL (9.4-12.3); Monocytes Absolute Auto 0.6 X10*3/uL (0.1-1.2); Monocytes Percent Auto 6.8 % (2-11); Platelet Count 271 X10*3/uL (160-400); Red Blood Count 4.91 X10*6/uL (4.20-5.50); Red Cell Distribution Width 12.7 % (11.0-16.0); White Blood Count 9.4 X10*3/uL (4.8-10.8)
[2024-06-25 15:51] LABS: Prothrombin Time 11.8 SEC (10.9-12.4)
[2024-06-25 16:06] LABS: Alanine Aminotransferase 9 U/L (0-31); Albumin Level 3.6 g/dL (3.5-5.0); Anion Gap 11 (12-20); Aspartate Amino Transferase 22 U/L (5-31); Bilirubin Total 0.4 mg/dL (0.0-1.0); Blood Urea Nitrogen 18 mg/dL (9-16); Calcium 9.1 mg/dL (8.4-10.2); Carbon Dioxide 28 mmol/L (22-29); Chloride 106 mmol/L (96-108); Creatinine Clr Calc Pharmacy 88.8; Estimated Glomerular Filt Rate > 60; Glucose Random 140 mg/dL (60-115); Lipase 39 U/L (8-78); Potassium 4.7 mmol/L (3.3-5.1); Sodium 140 mmol/L (135-145); Total Protein 7.5 g/dL (6.5-8.0)
[2024-06-25 16:16] LABS: Alkaline Phosphatase 76 U/L (39-117)
[2024-06-25 19:38] VITALS: BP 117/75; PULSE 85; RESP 16; TEMP 36.8; O2SAT 97
--- NOTE | 2024-06-25 20:20 | PC.NURSE ---
per davida, pt was brought into room emc 3, provider tuan came to see patient and the patient had left without seeing the provider
== END 2024-06-25 20:23 | disposition left against medical advice (07) ==
PROVIDERS: Registered Nurse Emergency; Emergency Provider Emergency Medicine Emergency Medical Services; PCP Nurse Practitioner Family
DX: R10.2 Pelvic and perineal pain (principal); F17.210 Nicotine dependence, cigarettes, uncomplicated; Z79.899 Other long term (current) drug therapy
CPT/HCPCS: 36415; 80053; 83690; 85025; 85610; 99283

== ENCOUNTER → 2024-06-27 09:32 | Outpatient (BNVA) | payer OTHER, SELFPAY | PROVIDERS: PCP Nurse Practitioner Family; Visit Provider Physician Assistant | DX: R10.9 Unspecified abdominal pain (principal) | CPT/HCPCS: 81003 ==

== ENCOUNTER 2024-06-27 10:42 | Emergency (ER) | payer OTHER, SELFPAY ==
--- NOTE | ~2024-06-27 | CT_ITS ---
EXAMINATION: CT ABDOMEN AND PELVIS WITHOUT CONTRAST CLINICAL INFORMATION: Right flank pain. COMPARISON: 09/26/2022. Renal ultrasound 12/10/2023. TECHNIQUE: Multidetector volumetric imaging was performed from the superior aspect of the liver through the pubic symphysis. Sagittal and coronal reformatted images were obtained on the technologist's workstation. This CT examination was performed using dose optimization techniques as appropriate, variously including the following: *Automated exposure control *Adjustment of mA and/or kV according to patient size (this includes techniques or standardized protocols for targeted exams where dose is matched to indication/reason for exam; i.e. extremities or head) *Use of iterative reconstruction technique FINDINGS: LUNG BASES: The visualized lung bases are unremarkable. LIVER, GALLBLADDER, AND BILIARY TREE: The liver is normal in size, shape, and attenuation. No focal hepatic lesion or biliary ductal dilatation is present. There is a calcified granuloma in segment 2. The gallbladder is unremarkable with no evidence of radiopaque gallstones, gallbladder wall thickening, or obvious pericholecystic inflammatory changes. PANCREAS: Unremarkable. SPLEEN: Unremarkable. ADRENAL GLANDS: Unremarkable. KIDNEYS AND URETERS: The kidneys are normal in size, shape, and attenuation. No hydronephrosis, hydroureter, or calculi seen. No significant perinephric or periureteral stranding. BLADDER: Somewhat decompressed. No wall thickening or mass. Seen only on the thin section images, there is a 2 mm intraluminal calcification abutting the right ureteral orifice dependently, possibly representing a tiny passed calculus. (Series 4, image 699). GASTROINTESTINAL TRACT: The small and large bowel are unremarkable. No evidence of appendicitis. ABDOMINAL WALL: -There is a tiny fat-containing right inguinal hernia. -There is abdominal pannus. LYMPH NODES: Normal. VASCULAR: Minimal aortic and biiliac artery calcification. No aneurysm. PELVIC VISCERA: The uterus and adnexa are unremarkable. OSSEOUS STRUCTURES: -No suspicious sclerotic or blastic bony lesion. There are moderate spinal degenerative changes. -There is a grade 1 degenerative anterolisthesis of L4 on L5. Advanced facet degeneration at this level. CT/CT abdomen pelvis wo IV con IMPRESSION: 1. No hydronephrosis or hydroureter identified. No obstructing or nonobstructing renal calculi. 2. Only seen on thin section images is a tiny 2 mm intraluminal calcification in the dependent bladder abutting the right ureteral orifice. This may represent a tiny recently passed calculus. 3. Additional ancillary findings as discussed in the body of the report. Electronically signed by: Deangelo Wilson MD 06/27/2024 12:59 PM [facility]
[2024-06-27 11:44] VITALS: BP 143/72; PULSE 82; RESP 16; TEMP 36.2; O2SAT 95; BMI 40.2
--- NOTE | 2024-06-27 11:45 | ED_ITS ---
HPI - General Adult General Chief complaint: Urogenital-Female Stated complaint: kidney stones Time Seen by Provider: 06/27/24 16:33 Source: patient Mode of arrival: ambulatory Limitations: no limitations History of Present Illness ED Provider: Camila Slaughter PA-C HPI narrative: Patient is a 53 year old assigned female at with a history of kidney stones, DM, HTN, sleep apnea, and SI joint dysfunction, presenting to the emergency department today with right flank pain and hematuria. Patient states that over the last day she has had right sided flank pain with blood in her urine. She states that to some extent blood in her urine is chronic but the flank pain is not always there. Patient denies any dizziness, lightheadedness, abdominal pain, nausea, vomiting, fever, chills, blurry vision, double vision, loss of vision, chest pain, difficulty breathing, shortness of breath, back pain, night sweats, pain with urination, increased urinary frequency, increased urinary urgency, blood in her stool, syncope or a near syncopal episode, recent trauma or falls, bowel incontinence, bladder incontinence, or any other complaints at this time. Onset (ago): day(s) Relieving factors: none Exacerbating factors: none Associated symptoms: denies other symptoms Treatments prior to arrival: none Related Data Home Medications ?Medication ?Instructions ?Recorded ?Confirmed cyclobenzaprine 10 mg tablet 10 mg PO BEDTIME PRN 03/05/24 06/25/24 insulin degludec 200 unit/mL (3 32 unit subcut DAILY 06/25/24 06/25/24 mL) subcutaneous pen (Tresiba FlexTouch U-200 insulin) Previous Rx's ?Medication ?Instructions ?Recorded flash glucose scanning reader #1 ea 01/05/22 (FreeStyle Abdon 2 Norman) ipratropium 0.5 mg-albuterol 3 mg 3 ml inhalation Q6-8H PRN wheezing 03/28/22 (2.5 mg base)/3 mL nebulization #90 mL soln inhalational spacing device #1 ea 04/29/22 (Aerochamber Plus Z Stat spacer) blood sugar diagnostic (FreeStyle 1 strip miscellaneous QID #300 01/29/24 Lite Strips) strips blood-glucose meter (FreeStyle #1 ea 01/29/24 Lite Meter kit) lancets 28 gauge (FreeStyle #300 ea 01/29/24 Lancets) atorvastatin 40 mg tablet 40 mg PO BEDTIME 90 days #90 tabs 03/12/24 gabapentin 800 mg tablet 800 mg PO TID #90 tabs 03/12/24 lidocaine 5 % topical patch 1 patch topical DAILY PRN pain #15 03/12/24 ea omeprazole 20 mg capsule,delayed 20 mg PO DAILY 90 days #90 caps 03/12/24 release tirzepatide 2.5 mg/0.5 mL 2.5 mg (0.5 mL) subcut QWEEK 4 04/11/24 subcutaneous pen injector weeks #2 mL (Mounjaro) amlodipine 10 mg tablet 10 mg PO DAILY 90 days #90 tabs 04/16/24 glucose 4 gram chewable tablet 4 g PO Q15M PRN hypoglycemia #30 05/19/24 tabs empagliflozin 10 mg tablet 10 mg PO DAILY #90 tabs 06/05/24 (Jardiance) flash glucose sensor (FreeStyle #6 kits 06/05/24 Abdon 2 Sensor kit) buspirone 7.5 mg tablet 15 mg (2 x 7.5 mg) PO BID 90 days 06/06/24 #360 tabs duloxetine 60 mg capsule,delayed 60 mg PO DAILY 90 days #90 caps 06/06/24 release quetiapine 50 mg tablet 50 mg PO BEDTIME 90 days #90 tabs 06/06/24 valsartan 160 mg tablet 160 mg PO DAILY #90 tabs 06/06/24 levothyroxine 200 mcg tablet 200 mcg PO DAILY 90 days #90 tabs 06/17/24 insulin lispro 200 unit/mL (3 mL) See Rx Instructions subcut BID 30 06/25/24 subcutaneous pen days #6 mL cefuroxime axetil 250 mg tablet 250 mg PO BID 7 days #14 tabs 06/27/24 Allergies Allergy/AdvReac Type Severity Reaction Status Date / Time doxycycline [DOXYCYCLINE] Allergy Severe THROAT Verified 06/27/24 11:47 SWELLING clindamycin [CLINDAMYCIN] Allergy Intermediate CHEST PAIN Verified 06/27/24 11:47 Sulfa (Sulfonamide Allergy Unknown makes her Verified 06/27/24 11:47 Antibiotics) sick, vomit trimethoprim [From BACTRIM] Allergy Unknown NAUSEA & Verified 06/27/24 11:47 VOMITING dulaglutide [From Trulicity] AdvReac Severe Diarrhea Verified 06/27/24 11:47 sulfamethoxazole AdvReac Mild NAUSEA & Verified 06/27/24 11:47 [From BACTRIM] VOMITING lisinopril Allergy Unknown headaches Uncoded 06/27/24 11:47 Review of Systems 2 Constitutional: Constitutional: Reports no additional constitutional complaints, Denies chills, Denies fever(s) and Denies night sweats Eyes: Eyes: Reports no additional eye complaints, Denies blurry vision, Denies change in vision, Denies diplopia, Denies eye discharge, Denies loss of vision and Denies eye pain ENT: Denies dizziness Cardiovascular: Cardiovascular: Reports no additional cardiovascular complaints, Denies chest pain, Denies lightheadedness, Denies Loss of Consciousness and Denies dyspnea Respiratory: Respiratory: Reports no additional respiratory complaints and Denies dyspnea Gastrointestinal: Gastrointestinal: Reports no additional gastrointestinal complaints, Denies abdominal pain, Denies melena, Denies hematochezia, Denies change in bowel habits and Denies change in stool character Genitourinary: Genitourinary: Reports hematuria, Denies urinary frequency, Denies dysuria, Denies urinary incontinence, Denies urinary hesitancy and Denies urinary urgency Comments: right flank pain Musculoskeletal: Musculoskeletal: Reports no additional musculoskeletal complaints, Denies numbness and Denies tingling Neurologic: Denies dizziness, Denies loss of vision, Denies numbness and Denies tingling Psychiatric: Psychiatric: Reports no additional psychiatric complaints Endocrine: Endocrine: Reports no additional endocrine complaints Hematologic/Lymphatic: Hematologic/Lymphatic: Reports no additional hematologic/lymphatic complaints Allergic/Immunologic: Allergic/Immunologic: Reports no additional allergic/immunologic complaints [facility] Past Medical History Attestation statement: The following information was validated with the patient. Source: old records reviewed and nursing notes reviewed Medical History Hypertensive retinopathy Diabetic retinopathy History of thyroid cancer Hypothyroid Uncontrolled diabetes mellitus with hyperglycemia Essential hypertension Hyperlipidemia Nicotine dependence, cigarettes, uncomplicated Sleep apnea Obesity (BMI 30-39.9) Insomnia Anxiety Depression Migraines B12 deficiency Vitamin D deficiency Hahn's palsy Sciatic leg pain Surgical History S/P thyroid biopsy History of thyroidectomy History of elbow surgery History of tubal ligation Family History Family History Father HTN (hypertension) CVD (cardiovascular disease) Diabetes mellitus Mental health disorder Mother Diabetes mellitus Uterine cancer COPD (chronic obstructive pulmonary disease) Mental health disorder Maternal Grandmother Breast cancer Paternal Aunt Breast cancer Brother No problems noted. Sister Substance use disorder Mental health disorder Sister No problems noted. Sister No problems noted. Daughter No problems noted. Son No problems noted. Son No problems noted. Son No problems noted. Son No problems noted. Son No problems noted. Son No problems noted. Social History Social History Household Members: Family Housing: Apartment Do you presently have visiting nurse or other home services: No Alcohol intake: never Patient Tobacco Use Status: Current everyday Tobacco user Tobacco use type: Cigarette Cigarettes Per Day: 10 Years Smoked: 20 e-Cigarette/Vaping Use: Never Used Second Hand Smoke Exposure: No Advance Directives: No Advance Directives Information Provided: Yes Do you have a plan to hurt others: No Plan service: No Current occupational status: disabled Current occupation: [employer] Cognitive needs: No Hearing needs: No Vision needs: Yes Physical Exam ED Vital Signs: Vital Signs - 24 hr 06/27/24 11:44 06/27/24 17:10 Temperature 97.2 F 97.2 F Pulse Rate 82 82 Respiratory Rate 16 16 Blood Pressure 143/72 H 143/72 H Pulse Oximetry 95 95 Oxygen Delivery Method Room Air Room Air BMI result Body Mass Index 40.2 Const General: cooperative, no acute distress, alert and awake Nutritional Appearance: well nourished Orientation/consciousness: patient oriented x3 Limitations: no limitations HENMT Head: Yes normal to inspection and Yes atraumatic Ears: hearing grossly normal bilaterally and external ears normal General nose exam: Normal external nose present, no nasal discharge noted and no epistaxis Face and sinus: Yes normal facial exam, No abrasion and No laceration Mouth: Normal oral and palatal mucosa present, no drooling and no muffled voice Eyes General: appearance normal, both eyes and all related structures Periorbital: periorbital findings normal Eyelids: Yes eyelids normal Conjunctivae: conjunctivae normal Pupils: Equal, round and reactive pupils present EOM: EOMs intact bilaterally Neck Neck: Yes normal visual inspection, Yes full ROM and Yes no lymphadenopathy Chest Chest palpation & inspection: normal inspection of the chest Resp Effort & Inspection: normal respiratory effort and able to speak in complete sentences GI Inspection: Yes normal to inspection Neuro General: patient oriented x3 and moves all extremities Cranial nerves: Yes Equal, round and reactive pupils present Cognition (Neuro): normal cognition Extrem General: Yes normal to inspection, Yes full ROM and Yes capillary refill normal Psych Appearance: grossly normal Mental Status: mental status grossly normal Affect: normal affect Attitude: cooperative Thought process: Normal thought process present Thought content: Normal thought content present Insight: Good insight present (Psych) Course Course Course Narrative: This is a rapid medical exam performed by Dorothy Marr NP: Additional HPI, ROS, PE not included below will be deferred to primary provider. Patient is a 53-year-old female with history of DM, HTN, HLD, retinopathy, hypothyroid, obesity, migraines, anxiety/depression presenting with complaint of right flank pain. Sent from urgent care to r/o stone. Denies fevers. Plan: labs, UA, CT Medical Decision Making Medical Decision Making [facility] Narrative: Patient is a 53 year old assigned female at with a history of kidney stones, DM, HTN, sleep apnea, and SI joint dysfunction, presenting to the emergency department today with right flank pain and hematuria. Patient's physical exam was unremarkable. Patient's blood work was unremarkable. Patient's urine showed evidence of a possible infection - given her symptoms, will treat. Patient's CT abd/pelvis showed a 2mm calcification in the bladder that is likely a passed stone. I explained my physical exam findings as well as all test results to the patient. I answered all questions asked by the patient. I stressed the importance of the patient taking her medication as directed (either prescribed or as the over the counter packaging recommends). I stressed the importance of the patient following up with her primary care provider and her urologist. I stressed the importance of the patient returning to the emergency department immediately if her symptoms were to worsen or if she were to develop any dizziness, shortness of breath, difficulty breathing, chest pain, blurry vision, loss of vision, nausea, vomiting, abdominal pain, fever, chills, back pain, or any other complaints. Patient verbalized agreement and understanding with this treatment plan and discharge. Differential Diagnosis Differential Diagnoses: The differential diagnosis associated with the presentation includes Cystitis UTI Kidney stone Admission/Observation Consideration of admission/observation: Escalation of care including admission/observation considered Patient would have been admitted to the hospital had her work up had any findings where hospital admission was appropriate and her clinical presentation warranted hospital admission. Lab Data [facility] Lab Attestation statement: I reviewed the patient's lab results. My interpretation of these results are in the [facility] Rationale portion of this note. 06/27/24 12:17 06/27/24 12:17 Labs: Lab Results 06/27/24 Range/Units 12:17 WBC 9.4 (4.8-10.8) X10*3/uL RBC 5.01 (4.20-5.50) X10*6/uL Hgb 14.8 (12.0-16.0) g/dl Hct 44.2 (37.0-47.0) % MCV 88.2 (80.0-98.0) fL MCH 29.5 (27.0-33.0) pg MCHC 33.5 (31.0-35.0) g/dl RDW 12.9 (11.0-16.0) % Plt Count 263 (160-400) X10*3/uL MPV 10.4 (9.4-12.3) fL Immature Gran % (Auto) 1.0 H (0.0-0.4) % Neut % (Auto) 50.7 (45-73) % Lymph % (Auto) 36.8 (20-40) % [place] % (Auto) 6.1 (2-11) % Eos % (Auto) 4.0 (0-4) % Baso % (Auto) 1.4 (0-2) % Lymph # (Auto) 3.5 (1.2-4.9) X10*3/uL [place] # (Auto) 0.6 (0.1-1.2) X10*3/uL Eos # (Auto) 0.4 (0.0-0.4) X10*3/uL Baso # (Auto) 0.1 (0.0-0.2) X10*3/uL Abs Immat Gran (auto) 0.09 H (0.00-0.03) X10*3/uL Absolute Neuts (auto) 4.8 (2.0-8.3) x10*3/uL Absolute Nucleated RBC 0.000 (0.0-0.012) X10*3/uL Nucleated RBC % (auto) 0.0 (0.0-0.2) /100WBC PT 12.0 (10.9-12.4) SEC INR 1.0 (0.9-1.1) Sodium 140 (135-145) mmol/L Potassium 4.3 (3.3-5.1) mmol/L Chloride 106 (96-108) mmol/L Carbon Dioxide 29 (22-29) mmol/L Anion Gap 9 L (12-20) BUN 20 H (9-16) mg/dL Creatinine 0.82 (0.5-1.4) mg/dL Estim Creat Clear Calc 96.6 Estimated GFR > 60 Random Glucose 116 H (60-115) mg/dL Calcium 9.2 (8.4-10.2) mg/dL Magnesium 2.2 (1.6-2.6) mg/dL Total Bilirubin 0.4 (0.0-1.0) mg/dL AST 25 (5-31) U/L ALT 11 (0-31) U/L Alkaline Phosphatase 74 (39-117) U/L Total Protein 7.5 (6.5-8.0) g/dL Albumin 3.6 (3.5-5.0) g/dL Lipase 29 (8-78) U/L Urine Color Yellow Urine Appearance Cloudy Urine pH 5.5 (5.0-9.0) Ur Specific [place] 1.025 (1.005-1.025) Urine Protein 100 (2+) H (Neg-Trace) mg/dL Urine Glucose (UA) >=1000 H (Negative) mg/dL Urine Ketones Trace (Negative) mg/dL Urine Blood Trace H (Negative) Urine Nitrite Negative (Negative) Ur Leukocyte Esterase Small (1+) H (Negative) Urine RBC 6-10 H (0-2) /HPF Urine WBC 21-50 H (0-5) /HPF Ur Squamous Epith Cells 11-20 (0-2) /HPF Urine Bacteria 2+ (None Seen) Hyaline Casts 0-2 (0-2) /LPF Independent Interpretation I performed an independent interpretation of an: CT Scan Interpretation: My interpretation is in agreement with the radiologist's impression of this imaging study. L Report Number: [id number]: Total DLP = 969.00 mGy-cm EXAMINATION: CT ABDOMEN AND PELVIS WITHOUT CONTRAST CLINICAL INFORMATION: Right flank pain. COMPARISON: 09/26/2022. Renal ultrasound 12/10/2023. TECHNIQUE: Multidetector volumetric imaging was performed from the superior aspect of the liver through the pubic symphysis. Sagittal and coronal reformatted images were obtained on the technologist's workstation. This CT examination was performed using dose optimization techniques as appropriate, variously including the following: *Automated exposure control *Adjustment of mA and/or kV according to patient size (this includes techniques or standardized protocols for targeted exams where dose is matched to indication/reason for exam; i.e. extremities or head) *Use of iterative reconstruction technique FINDINGS: LUNG BASES: The visualized lung bases are unremarkable. LIVER, GALLBLADDER, AND BILIARY TREE: The liver is normal in size, shape, and attenuation. No focal hepatic lesion or biliary ductal dilatation is present. There is a calcified granuloma in segment 2. The gallbladder is unremarkable with no evidence of radiopaque gallstones, gallbladder wall thickening, or obvious pericholecystic inflammatory changes. PANCREAS: Unremarkable. SPLEEN: Unremarkable. ADRENAL GLANDS: Unremarkable. KIDNEYS AND URETERS: The kidneys are normal in size, shape, and attenuation. No hydronephrosis, hydroureter, or calculi seen. No significant perinephric or periureteral stranding. BLADDER: Somewhat decompressed. No wall thickening or mass. Seen only on the thin section images, there is a 2 mm intraluminal calcification abutting the right ureteral orifice dependently, possibly representing a tiny passed calculus. (Series 4, image 699). GASTROINTESTINAL TRACT: The small and large bowel are unremarkable. No evidence of appendicitis. ABDOMINAL WALL: -There is a tiny fat-containing right inguinal hernia. -There is abdominal pannus. LYMPH NODES: Normal. VASCULAR: Minimal aortic and biiliac artery calcification. No aneurysm. PELVIC VISCERA: The uterus and adnexa are unremarkable. OSSEOUS STRUCTURES: -No suspicious sclerotic or blastic bony lesion. There are moderate spinal degenerative changes. -There is a grade 1 degenerative anterolisthesis of L4 on L5. Advanced facet degeneration at this level. CT/CT abdomen pelvis wo IV con IMPRESSION: 1. No hydronephrosis or hydroureter identified. No obstructing or nonobstructing renal calculi. 2. Only seen on thin section images is a tiny 2 mm intraluminal calcification in the dependent bladder abutting the right ureteral orifice. This may represent a tiny recently passed calculus. 3. Additional ancillary findings as discussed in the body of the report. Electronically signed by: Deangelo Wilson MD 06/27/2024 12:59 PM [facility] Dictated By: Deangelo Wilson MD Signed By: Electronically signed by Deangelo Wilson MD 06/27/24 [id number] Radiology Impression Discussion of test interpretation with radiology: I have reviewed the radiologist's reading. Prescription Management I considered prescription management with: Antibiotic (patient prescribed an antibiotic for UTI) Chronic Conditions Patient?s care impacted by: Diabetes and Hypertension Discharge Plan Discharge Clinical Impression: UTI (urinary tract infection), Kidney stone Patient Disposition: Home, Self-Care Instructions: Kidney Stones (ED), Urinary Tract Infection in Women (DC) Additional Instructions: Take your medication as prescribed. Follow up with your primary care provider. Return to the emergency department immediately if your symptoms worsen or if you develop any dizziness, shortness of breath, difficulty breathing, chest pain, blurry vision, loss of vision, nausea, vomiting, abdominal pain, fever, chills, back pain, or any other complaints. Prescriptions: New cefuroxime axetil 250 mg tablet 250 mg PO BID 7 Days Qty: 14 0RF No Action (DME) FreeStyle Abdon 2 Norman Misc See Rx Instructions .Route Qty: 1 4RF Rx Instructions: tid testing ipratropium-albuterol 0.5 mg-3 mg(2.5 mg base)/3 mL solution for nebulization 3 ml inhalation Q6-8H PRN (Reason: wheezing) Qty: 90 0RF (DME) blood-glucose meter [FreeStyle Lite Meter] Kit See Rx Instructions .Route Qty: 1 0RF Rx Instructions: As directed (DME) lancets [FreeStyle Lancets] 28 gauge misc See Rx Instructions .Route Qty: 300 1RF Rx Instructions: Test blood sugar 3 times per day FreeStyle Lite Strips Strip 1 strip miscellaneous QID Qty: 300 1RF atorvastatin 40 mg tablet 40 mg PO BEDTIME 90 Days Qty: 90 1RF gabapentin 800 mg tablet 800 mg PO TID Qty: 90 4RF lidocaine 5 % adhesive patch,medicated 1 patch topical DAILY PRN (Reason: pain) Qty: 15 0RF Rx Instructions: leave on most painful area for up to 12 hrs omeprazole 20 mg capsule,delayed release(DR/EC) 20 mg PO DAILY 90 Days Qty: 90 1RF glucose 4 gram tablet,chewable 4 g PO Q15M PRN (Reason: hypoglycemia) Qty: 30 6RF Rx Instructions: until symptoms of low blood sugar are controlled (DME) FreeStyle Abdon 2 Sensor Kit See Rx Instructions .ROUTE .COMPLEX Qty: 6 1RF Dose Instruction: USE TO MONITOR BLOOD SUGAR TWICE DAILY, CHANGE EVERY 14 DAYS. Rx Instructions: USE TO MONITOR BLOOD SUGAR TWICE DAILY, CHANGE EVERY 14 DAYS. Jardiance 10 mg tablet 10 mg PO DAILY Qty: 90 1RF duloxetine 60 mg capsule,delayed release(DR/EC) 60 mg PO DAILY 90 Days Qty: 90 0RF buspirone 7.5 mg tablet 15 mg PO BID 90 Days Qty: 360 0RF quetiapine 50 mg tablet 50 mg PO BEDTIME 90 Days Qty: 90 0RF valsartan 160 mg tablet 160 mg PO DAILY Qty: 90 0RF levothyroxine 200 mcg tablet 200 mcg PO DAILY 90 Days Qty: 90 0RF Rx Instructions: Future refills pending lab results (DME) Aerochamber Plus Z Stat Spacer See Rx Instructions .Route Qty: 1 0RF Rx Instructions: As directed amlodipine 10 mg tablet 10 mg PO DAILY 90 Days Qty: 90 1RF Mounjaro 2.5 mg/0.5 mL pen injector 2.5 mg subcut QWEEK 28 Days Qty: 2 4RF insulin lispro 200 unit/mL (3 mL) insulin pen See Rx Instructions subcut BID 30 Days Qty: 6 6RF Rx Instructions: 8 units twice daily subcutaneously 2 times a day; insulin degludec [Tresiba FlexTouch U-200] 200 unit/mL (3 mL) insulin pen 32 unit subcut DAILY cyclobenzaprine 10 mg tablet 10 mg PO BEDTIME PRN Referrals: Adarsh Johnson, SURGERY SCHEDULING COORDINATOR-BC [Primary Care Provider] - Interventions: ED Discharge Assessment Last Done: 06/27/24 17:10 Discharge Date/Time: 06/27/24 17:11 Print Language: Sinhala
[2024-06-27 12:22] LABS: MANUAL DIFF FLAG NO
[2024-06-27 12:25] LABS: Appearance Urine Cloudy; Color Urine Yellow; Glucose Urine UA >=1000 mg/dL (Negative); Leukocyte Esterase Urine Small (1+) (Negative); Nitrite Urine Negative (Negative); PH 5.5 (5.0-9.0); Specific Gravity - Urine 1.025 (1.005-1.025); UMIC TRIGGER UACC YES; Urine Blood Trace (Negative); Urine Ketones Trace mg/dL (Negative); Urine Protein 100 (2+) mg/dL (Neg-Trace)
[2024-06-27 12:27] LABS: Basophils Absolute Auto 0.1 X10*3/uL (0.0-0.2); Basophils Percent Auto 1.4 % (0-2); Eosinophils Absolute Auto 0.4 X10*3/uL (0.0-0.4); Hematocrit 44.2 % (37.0-47.0); Hemoglobin 14.8 g/dl (12.0-16.0); Imm Gran Abs Auto 0.09 X10*3/uL (0.00-0.03); Lymphocytes Absolute Auto 3.5 X10*3/uL (1.2-4.9); Lymphocytes Percent Auto 36.8 % (20-40); Mean Corpuscular HGB Conc 33.5 g/dl (31.0-35.0); Mean Corpuscular Hemoglobin 29.5 pg (27.0-33.0); Mean Corpuscular Volume 88.2 fL (80.0-98.0); Mean Platelet Volume 10.4 fL (9.4-12.3); Monocytes Absolute Auto 0.6 X10*3/uL (0.1-1.2); Monocytes Percent Auto 6.1 % (2-11); Neutrophils Absolute Auto 4.8 x10*3/uL (2.0-8.3); Neutrophils Percent Auto 50.7 % (45-73); Platelet Count 263 X10*3/uL (160-400); Red Blood Count 5.01 X10*6/uL (4.20-5.50); Red Cell Distribution Width 12.9 % (11.0-16.0); White Blood Count 9.4 X10*3/uL (4.8-10.8)
[2024-06-27 12:30] LABS: Bacteria Urine 2+ (None Seen); Hyaline Casts Urine 0-2 /LPF (0-2); UACC Culture Trigger YES; WBC Urine 21-50 /HPF (0-5)
[2024-06-27 12:56] LABS: Alanine Aminotransferase 11 U/L (0-31); Albumin Level 3.6 g/dL (3.5-5.0); Anion Gap 9 (12-20); Aspartate Amino Transferase 25 U/L (5-31); Bilirubin Total 0.4 mg/dL (0.0-1.0); Blood Urea Nitrogen 20 mg/dL (9-16); Calcium 9.2 mg/dL (8.4-10.2); Carbon Dioxide 29 mmol/L (22-29); Chloride 106 mmol/L (96-108); Creatinine Clr Calc Pharmacy 96.6; Estimated Glomerular Filt Rate > 60; Glucose Random 116 mg/dL (60-115); Lipase 29 U/L (8-78); Magnesium 2.2 mg/dL (1.6-2.6); Potassium 4.3 mmol/L (3.3-5.1); Sodium 140 mmol/L (135-145); Total Protein 7.5 g/dL (6.5-8.0)
[2024-06-27 13:54] LABS: Alkaline Phosphatase 74 U/L (39-117)
[2024-06-27 17:10] VITALS: BP 143/72; PULSE 82; RESP 16; TEMP 36.2; O2SAT 95
== END 2024-06-27 17:11 | disposition home or self-care (01) ==
PROVIDERS: Registered Nurse Emergency; Emergency Provider Emergency Medicine Emergency Medical Services; PCP Nurse Practitioner Family
DX: N39.0 Urinary tract infection, site not specified (principal); N20.0 Calculus of kidney; R31.9 Hematuria, unspecified; R10.2 Pelvic and perineal pain; Z79.899 Other long term (current) drug therapy
CPT/HCPCS: 36415; 74176; 80053; 81001; 83690; 83735; 85025; 85610; 87086; 99282; 99284

== ENCOUNTER 2024-07-23 13:19 | Outpatient (REF) | payer OTHER, SELFPAY ==
[2024-07-23 16:25] LABS: MANUAL DIFF FLAG NO
[2024-07-23 16:38] LABS: Basophils Absolute Auto 0.1 X10*3/uL (0.0-0.2); Basophils Percent Auto 1.4 % (0-2); Eosinophils Absolute Auto 0.3 X10*3/uL (0.0-0.4); Eosinophils Percent Auto 3.6 % (0-4); Hemoglobin 14.2 g/dl (12.0-16.0); Imm Gran Abs Auto 0.01 X10*3/uL (0.00-0.03); Imm Gran Pct Auto 0.1 % (0.0-0.4); Lymphocytes Absolute Auto 2.9 X10*3/uL (1.2-4.9); Lymphocytes Percent Auto 35.8 % (20-40); Mean Corpuscular HGB Conc 33.8 g/dl (31.0-35.0); Mean Corpuscular Hemoglobin 29.3 pg (27.0-33.0); Mean Corpuscular Volume 86.8 fL (80.0-98.0); Mean Platelet Volume 10.9 fL (9.4-12.3); Monocytes Absolute Auto 0.5 X10*3/uL (0.1-1.2); Monocytes Percent Auto 6.4 % (2-11); Neutrophils Absolute Auto 4.3 x10*3/uL (2.0-8.3); Neutrophils Percent Auto 52.7 % (45-73); Platelet Count 254 X10*3/uL (160-400); Red Blood Count 4.84 X10*6/uL (4.20-5.50); Red Cell Distribution Width 12.8 % (11.0-16.0); White Blood Count 8.1 X10*3/uL (4.8-10.8)
[2024-07-23 16:42] LABS: Appearance Urine Cloudy; Color Urine Dark Yellow; Glucose Urine UA Negative (Negative); Leukocyte Esterase Urine Moderate (2+) (Negative); Nitrite Urine Negative (Negative); PH 5.5 (5.0-9.0); Specific Gravity - Urine >= 1.030 (1.005-1.025); UMIC TRIGGER UACC YES; Urine Blood Small (1+) (Negative); Urine Ketones Trace mg/dL (Negative); Urine Protein 300 (3+) mg/dL (Neg-Trace)
[2024-07-23 16:47] LABS: Alanine Aminotransferase 16 U/L (0-31); Albumin Level 3.6 g/dL (3.5-5.0); Alkaline Phosphatase 82 U/L (39-117); Anion Gap 8 (12-20); Aspartate Amino Transferase 26 U/L (5-31); Bilirubin Total 0.3 mg/dL (0.0-1.0); Blood Urea Nitrogen 17 mg/dL (9-16); Calcium 8.9 mg/dL (8.4-10.2); Carbon Dioxide 29 mmol/L (22-29); Chloride 111 mmol/L (96-108); Cholesterol 125 mg/dL (<200); Estimated Glomerular Filt Rate > 60; Glucose Fasting 113 mg/dL (60-99); Glucose Random 113 mg/dL (60-115); HDL Cholesterol 41 mg/dL (>40); LDL Cholesterol Calculated 55 mg/dL (<100); Potassium 4.3 mmol/L (3.3-5.1); Sodium 144 mmol/L (135-145); Total Protein 7.4 g/dL (6.5-8.0); Triglycerides 146 mg/dL (<150)
[2024-07-23 17:05] LABS: Bacteria Urine 4+ (None Seen); Free T4 (Free Thyroxine) 1.39 ng/dL (0.71-1.85); UACC Culture Trigger YES; WBC Urine >50 /HPF (0-5)
[2024-07-23 17:06] LABS: TSH reflex Free T4 0.13 uIU/mL (0.32-4.0)
[2024-07-23 17:20] LABS: Folate 7.4 ng/mL (> or = 4.0); Vitamin B12 543 pg/mL (200-900)
[2024-07-23 18:01] LABS: Creatinine Urine 177.45 mg/dL
[2024-07-23 18:17] LABS: Total Protein Urine Random 334 mg/dL (<12)
[2024-07-24 09:04] LABS: Thyroglobulin <0.1 ng/mL; Thyroglobulin Antibodies <1 IU/mL (< or = 1)
[2024-07-24 22:08] LABS: Prot Elec - Albumin 3.4 g/dL (3.8-4.8); Prot Elec - Alpha1 0.3 g/dL (0.2-0.3); Prot Elec - Alpha2 0.9 g/dL (0.5-0.9); Prot Elec - Beta 1 0.4 g/dL (0.4-0.6); Prot Elec - Beta 2 0.4 g/dL (0.2-0.5); Prot Elec - Gamma 1.4 g/dL (0.8-1.7); Prot Elec - Total Protein 6.8 g/dL (6.1-8.1)
== END 2024-07-23 13:20 | disposition home or self-care (01) ==
LOC: HO.HMGCLDS 13:19
PROVIDERS: Nurse Practitioner Adult Health; PCP Nurse Practitioner Family; Referring Provider Internal Medicine Hypertension Specialist; Visit Provider Nurse Practitioner Family
DX: E11.65 Type 2 diabetes mellitus with hyperglycemia (principal); I10 Essential (primary) hypertension; R80.9 Proteinuria, unspecified; E53.8 Deficiency of other specified B group vitamins; E66.01 Morbid (severe) obesity due to excess calories; Z85.850 Personal history of malignant neoplasm of thyroid
CPT/HCPCS: 36415; 80048; 80053; 80061; 81001; 81003; 82570; 82607; 82746; 84156; 84165; 84432; 84439; 84443; 85025; 86800; 87086

== ENCOUNTER 2024-08-06 09:50 | Outpatient (AMB) | payer OTHER, SELFPAY ==
--- NOTE | 2024-08-06 09:54 | HO.NEPHOV_ITS ---
Vital Signs 08/06/24 09:55 08/06/24 10:28 Height 5 ft 5 in Weight 244 lb BMI 40.6 BP 156/78 H 150/70 H Blood Pressure Location Lt brachial Lt brachial Position Sitting Sitting Pulse 101 H Pulse Source Pulse Oximeter Pulse Oximetry (%) 96 Oxygen Delivery Method Room Air Intake Visit Reasons: FU/ Conf Welfare Analyst Required: No Accompanied by: Self / Same As Patient Allergies doxycycline [DOXYCYCLINE] Allergy (Severe, Verified 08/06/24 09:57) THROAT SWELLING clindamycin [CLINDAMYCIN] Allergy (Intermediate, Verified 08/06/24 09:57) CHEST PAIN Sulfa (Sulfonamide Antibiotics) Allergy (Unknown, Verified 08/06/24 09:57) makes her sick, vomit trimethoprim [From BACTRIM] Allergy (Unknown, Verified 08/06/24 09:57) NAUSEA & VOMITING dulaglutide [From Trulicity] Adverse Reaction (Severe, Verified 08/06/24 09:57) Diarrhea empagliflozin [From Jardiance] Adverse Reaction (Intermediate, Verified 08/06/24 09:57) uti sulfamethoxazole [From BACTRIM] Adverse Reaction (Mild, Verified 08/06/24 09:57) NAUSEA & VOMITING lisinopril Allergy (Unknown, Uncoded 06/27/24 11:47) headaches Medication List - Last Reconciled 08/06/24 by Con Mendez MD amlodipine 10 mg PO DAILY 90 days atorvastatin 40 mg PO BEDTIME 90 days blood sugar diagnostic (FreeStyle Lite Strips) 1 strip miscellaneous QID blood-glucose meter (FreeStyle Lite Meter kit) As directed buspirone 15 mg PO BID cyclobenzaprine 10 mg PO BEDTIME PRN duloxetine 60 mg PO DAILY 90 days flash glucose scanning reader (FreeStyle [place] 2 [place]) tid testing flash glucose sensor (FreeStyle [place]don 2 Sensor kit) USE TO MONITOR BLOOD SUGAR TWICE DAILY, CHANGE EVERY 14 DAYS. gabapentin 800 mg PO TID glucose 4 grams PO Q15M PRN inhalational spacing device (Aerochamber Plus Z Stat spacer) As directed insulin degludec (Tresiba FlexTouch U-200 insulin) 32 units subcut DAILY insulin lispro 8 units twice daily subcutaneously 2 times a day; 30 days ipratropium-albuterol 0.5 mg-3 mg(2.5 mg base)/3 mL 3 mL inhalation Q6-8H PRN lancets (FreeStyle Lancets) Test blood sugar 3 times per day levothyroxine 175 mcg PO DAILY 90 days lidocaine 5% 1 patch topical DAILY PRN nitrofurantoin macrocrystal 100 mg PO BID 7 days omeprazole 20 mg PO DAILY 90 days quetiapine 50 mg PO BEDTIME 90 days tirzepatide (Mounjaro) 5 mg (0.5 mL) subcut QWEEK tramadol 50 mg PO BID PRN 10 days valsartan 160 mg PO DAILY HPI Comments Details: . Tammy is a pleasant 53-year-old woman with a history of hypertension since 1999. Blood sugar has been suboptimally controlled. She has a history of hypertension as well. Her baseline creatinine used to be around 0.8 mg/dL which has gradually increased to 1.02 mg/dL. She was recently found to have proteinuria. She also had microscopic hematuria. She was seen by Urology and underwent cystoscopy which has essentially unremarkable. Diabetes mellitus is complicated by diabetic retinopathy. She was significant obesity. She was recently prescribed Victoza and she is yet to start this. 04/16/24 Doing better Not taking Victoza Waiting to start Mounjaro Did not undergo blood and urine test 08/06/2024. Recently he had an episode of abdominal colic and subsequently had a kidney stone. This was complicated by UTI. She passed the stone spontaneously. She was not lost any weight. [facility] Medical History Hypertensive retinopathy Diabetic retinopathy History of thyroid cancer Hypothyroid Uncontrolled diabetes mellitus with hyperglycemia Essential hypertension Hyperlipidemia Nicotine dependence, cigarettes, uncomplicated Sleep apnea Obesity (BMI 30-39.9) Insomnia Anxiety Depression Migraines B12 deficiency Vitamin D deficiency Hahn's palsy Sciatic leg pain Surgical History S/P thyroid biopsy History of thyroidectomy History of elbow surgery History of tubal ligation Family History Father HTN (hypertension) CVD (cardiovascular disease) Diabetes mellitus Mental health disorder Mother Diabetes mellitus Uterine cancer COPD (chronic obstructive pulmonary disease) Mental health disorder Maternal Grandmother Breast cancer Paternal Aunt Breast cancer Brother No problems noted. Sister Substance use disorder Mental health disorder Sister No problems noted. Sister No problems noted. Daughter No problems noted. Son No problems noted. Son No problems noted. Son No problems noted. Son No problems noted. Son No problems noted. Son No problems noted. Social History Household Members: Family Housing: Apartment Do you presently have visiting nurse or other home services: No Alcohol intake: never Patient Tobacco Use Status: Current everyday Tobacco user Tobacco use type: Cigarette Cigarettes Per Day: 10 Years Smoked: 20 e-Cigarette/Vaping Use: Never Used Second Hand Smoke Exposure: No service: No Current occupational status: disabled Current occupation: [employer] Cognitive needs: No Hearing needs: No Vision needs: Yes Physical Exam Vital Signs: Last Vital Signs Pulse 101 H 08/06/24 09:55 BP 156/78 H 08/06/24 09:55 Pulse Ox 96 08/06/24 09:55 Oxygen Delivery Method Room Air 08/06/24 09:55 BMI result Body Mass Index 40.6 Comfortable Neck supple no JVD. Lungs entry equal no rales. Heart S1-S2 heard no gallop or rub. Abdomen soft nontender. Neuro alert awake oriented. No asterixis. Extremities no edema. Const General: comfortable; No acute distress Nutritional Appearance: obese Orientation/consciousness: patient oriented x3 Eyes General: appearance normal, both eyes and all related structures Visual Spencer: normal visual spencer by confrontation Neck Neck: Yes supple and Yes no JVD Resp Effort & Inspection: normal respiratory effort and respiratory effort not decreased Cardio Palpation: no palpable S3 and no palpable S4 Heart sounds: no rubs GI Inspection: Yes normal to inspection Palpation (GI): Soft to palpation Percussion: Yes normal to percussion Auscultation: normal bowel sounds General: Yes no CVA tenderness Back/Spine/Pelvis Back: no CVA tenderness Skin General skin exam: no petechiae and no purpura Neuro General: patient oriented x3 and no focal motor deficits Extrem General: No clubbing and No edema Results Reviewed Nephrology Results: Hgb 14.2 g/dl (12.0-16.0) 07/23/24 WBC 8.1 X10*3/uL (4.8-10.8) 07/23/24 Plt Count 254 X10*3/uL (160-400) 07/23/24 Sodium 144 mmol/L (135-145) 07/23/24 Potassium 4.3 mmol/L (3.3-5.1) 07/23/24 Chloride 111 mmol/L (96-108) H 07/23/24 Carbon Dioxide 29 mmol/L (22-29) 07/23/24 BUN 17 mg/dL (9-16) H 07/23/24 Creatinine 0.71 mg/dL (0.5-1.4) 07/23/24 Calcium 8.9 mg/dL (8.4-10.2) 07/23/24 Urine Protein 300 (3+) mg/dL (Neg-Trace) H 07/23/24 Urine Creatinine 177.45 mg/dL 07/23/24 Assessment & Plan Assessment & Plan (1) Essential hypertension: Code(s): I10 - Essential (primary) hypertension Category: Medical Plan 53-year-old woman with longstanding diabetes mellitus and hypertension with proteinuria. Given the history of diabetic retinopathy she likely has underlying diabetic nephropathy to explain the proteinuria. Nondiabetic causes seem less likely at this point. She has mild CKD most likely due to diabetic nephropathy. The blood pressure is suboptimal. Recommendation Keep amlodipine 10 mg. Change valsartan 160 to valsartan HCTZ 160/12.5 Discussed importance of weight loss. She should stay on low-sodium diet. Discussed importance of tight control blood sugar to maintain A1c less than 7%. She would benefit from SGLT2 inhibitors. . Orders: Orders Basic Metabolic Panel 6 Weeks I10 - Essential (primary) hypertension Medications: New valsartan-hydrochlorothiazide 160-12.5 mg 1 tab PO DAILY 60 tabs 0RF Discontinued valsartan Discontinued Reason: Doctor's Order 160 mg PO DAILY 90 tabs 0RF Coding Level of Care Code Est Pt Level 4 (59226) Diagnoses Essential hypertension I10
[2024-08-06 09:55] VITALS: BP 156/78; PULSE 101; O2SAT 96; BMI 40.6
[2024-08-06 10:28] VITALS: BP 150/70
== END 2024-08-06 10:22 | disposition home or self-care (01) ==
PROVIDERS: PCP Nurse Practitioner Family; Visit Provider Internal Medicine Hypertension Specialist
DX: I10 Essential (primary) hypertension (principal)
CPT/HCPCS: 99214

== ENCOUNTER → 2024-08-06 09:50 | Outpatient (BNVA) | payer OTHER, SELFPAY | PROVIDERS: PCP Nurse Practitioner Family; Visit Provider Internal Medicine Hypertension Specialist | DX: I10 Essential (primary) hypertension (principal) | CPT/HCPCS: 99212 ==

== ENCOUNTER 2024-08-25 13:56 | Outpatient (AMB) | payer OTHER, SELFPAY ==
--- NOTE | 2024-08-25 13:58 | MHC.OFFVIS ---
Vital Signs 08/25/24 14:01 Height 5 ft 3.78 in Weight 244 lb 4.355 oz BMI 42.2 BP 110/70 Blood Pressure Location Rt brachial Position Sitting Pulse 96 Pulse Source Pulse Oximeter Pulse Oximetry (%) 97 Oxygen Delivery Method Room Air Intake Visit Reasons: History of thyroid cancer Intake Note: Patient present today for History of thyroid cancer office visit. Accompanied by: Self / Same As Patient Allergies doxycycline [DOXYCYCLINE] Allergy (Severe, Verified 08/25/24 15:35) THROAT SWELLING clindamycin [CLINDAMYCIN] Allergy (Intermediate, Verified 08/25/24 15:35) CHEST PAIN Sulfa (Sulfonamide Antibiotics) Allergy (Unknown, Verified 08/25/24 15:35) makes her sick, vomit trimethoprim [From BACTRIM] Allergy (Unknown, Verified 08/25/24 15:35) NAUSEA & VOMITING dulaglutide [From Trulicity] Adverse Reaction (Severe, Verified 08/25/24 15:35) Diarrhea empagliflozin [From Jardiance] Adverse Reaction (Intermediate, Verified 08/25/24 15:35) uti sulfamethoxazole [From BACTRIM] Adverse Reaction (Mild, Verified 08/25/24 15:35) NAUSEA & VOMITING lisinopril Allergy (Unknown, Uncoded 08/25/24 15:35) headaches Medication List - Last Reconciled 08/25/24 by Tammy Mccloud MD amlodipine 10 mg PO DAILY 90 days atorvastatin 40 mg PO BEDTIME 90 days blood sugar diagnostic (FreeStyle Lite Strips) 1 strip miscellaneous QID blood-glucose meter (FreeStyle Lite Meter kit) As directed buspirone 15 mg PO BID cyclobenzaprine 10 mg PO BEDTIME PRN duloxetine 60 mg PO DAILY 90 days flash glucose scanning reader (FreeStyle Escobar 2 [place]) tid testing flash glucose sensor (FreeStyle Escobar 2 Sensor kit) USE TO MONITOR BLOOD SUGAR TWICE DAILY, CHANGE EVERY 14 DAYS. gabapentin 800 mg PO TID glucose 4 grams PO Q15M PRN inhalational spacing device (Aerochamber Plus Z Stat spacer) As directed insulin degludec (Tresiba FlexTouch U-200 insulin) 32 units subcut DAILY insulin lispro 8 units twice daily subcutaneously 2 times a day; 30 days ipratropium-albuterol 0.5 mg-3 mg(2.5 mg base)/3 mL 3 mL inhalation Q6-8H PRN lancets (FreeStyle Lancets) Test blood sugar 3 times per day levothyroxine 175 mcg PO DAILY 90 days lidocaine 5% 1 patch topical DAILY PRN omeprazole 20 mg PO DAILY 90 days quetiapine 50 mg PO BEDTIME 90 days tirzepatide (Mounjaro) 5 mg (0.5 mL) subcut QWEEK tramadol 50 mg PO BID PRN 10 days valsartan-hydrochlorothiazide 160-12.5 mg 1 tab PO DAILY zolpidem 5 mg PO BEDTIME PRN HPI Comments Details: 53-year-old female coming in today for follow up of history of thyroid cancer status post total thyroidectomy 10/29/[address] Violetta Lozada at [facility], with pathology showing multifocal micro PTC, with largest focus measuring 0.9 cm x 0.6 X 0.6 cm. No angioinvasion, no lymphatic invasion, no perineural invasion, negative margins, also noted to have lymphocytic thyroiditis and hyperplastic follicular nodules. AJCC stage I, pT1a NX. SINDHU initial low risk of recurrence, unclear whether she got radioactive iodine or not. currently SINDHU response to therapy not determined as patient has not had recent follow up. Sees Philomena Alva APRN for DM in our office Was seeing Dr. Blanco for thyroid cancer previously History of PTC in detail 02/28/2018: Thyroid ultrasound revealed 1.8 cm hypoechoic smoothly marginated right inferior thyroid nodule, additional 5 mm hypoechoic right inferior pole nodule. Left thyroid lobe contained 4 nodule including 9 mm left superior isthmus nodule, 1.5 cm heterogenous smoothly marginated midpole, 1.1 cm isoechoic smoothly marginated inferior pole and 1 cm isoechoic smoothly marginated inferior pole nodules. Also noted 0.5 cm prominent lymph node adjacent to the left thyroid lobe with normal ultrasound morphology and flow. 08/25/2018: FNA biopsy of the 9 mm left superior pole nodule was diagnostic of PTC. Cytology of the right inferior 1.8 cm nodule revealed atypia of undetermined significance. 10/29/2018: Status post total thyroidectomy with Dr. Violetta Lozada at [facility] with pathology showing multifocal micro PTC, with largest focus measuring 0.9 cm x 0.6 X 0.6 cm. No angioinvasion, no lymphatic invasion, no perineural invasion, negative margins, also noted to have lymphocytic thyroiditis and hyperplastic follicular nodules. AJCC stage I, pT1a NX. SINDHU initial low risk of recurrence Unclear whether she got radioactive iodine She remembers having a whole body scan No family history of thyroid cancer Reports difficulty swallowing for the past 3 years , reports choking sensation intermittently. Feels her voice has changes. Currently on levothyroxine 175 mcg daily. Dose was reduced on 07/30/2024 after she had TSH low at 0.13. 07/23/2024: Most recent labs TSH low at 0.13, free T4 1.39, TG less than 0.1, TG antibody less than 1 Says adherent. good administration. No palpitations. no tremors. Reports chronic constipation. Lost 5 lbs on Mounjaro over 5 months. Note : Patient while walking out of the appointment started having chest pain, reports lightheadness dizziness, non radiation feels like a pain on the left side of her chest, she reports this occurs when she walks, improves with rest, Vitals stable, BG on sensor escobar 112 mg/dl , after sitting for 5 mins intensity of ches tpain improved to 4/10 , however concern for angina, we called EMS for her to be taken to ED for further evaluation. Physical exam General: sitting comfortably in no acute distress HEENT: normocephalic/atraumatic Neck: supple, symmetrical Cardiac: normal heart sounds Pulm: normal breath sounds B/L, no added breath sounds Abd: not distended, no tenderness Extremities: no edema, no signs of myxedema Laboratory Tests 07/16/18 11/25/18 04/02/19 07:40 11:58 08:58 Free T4 0.99 TSH Thyroglobulin <0.1 L <0.1 L Thyroglobulin Antibody 16 H 5 H 05/14/19 08/19/19 12/12/19 09:00 14:17 10:25 Free T4 0.97 0.64 L 0.82 TSH Thyroglobulin <0.1 L Thyroglobulin Antibody 4 H 09/13/20 01/14/21 04/18/21 08:48 06:26 09:32 Free T4 1.25 0.46 L 1.02 TSH 0.02 L 59.07 H 0.11 L Thyroglobulin Thyroglobulin Antibody 07/14/22 08/13/23 07/23/24 16:19 14:06 13:36 Free T4 1.42 < 0.42 L 1.39 TSH 0.04 L > 100.00 H 0.13 L Thyroglobulin <0.1 L Thyroglobulin Antibody <1 PFSH Medical History Hypertensive retinopathy Diabetic retinopathy History of thyroid cancer Hypothyroid Uncontrolled diabetes mellitus with hyperglycemia Essential hypertension Hyperlipidemia Nicotine dependence, cigarettes, uncomplicated Sleep apnea Obesity (BMI 30-39.9) Insomnia Anxiety Depression Migraines B12 deficiency Vitamin D deficiency Hahn's palsy Sciatic leg pain Surgical History S/P thyroid biopsy History of thyroidectomy History of elbow surgery History of tubal ligation Family History Father HTN (hypertension) CVD (cardiovascular disease) Diabetes mellitus Mental health disorder Mother Diabetes mellitus Uterine cancer COPD (chronic obstructive pulmonary disease) Mental health disorder Maternal Grandmother Breast cancer Paternal Aunt Breast cancer Brother No problems noted. Sister Substance use disorder Mental health disorder Sister No problems noted. Sister No problems noted. Daughter No problems noted. Son No problems noted. Son No problems noted. Son No problems noted. Son No problems noted. Son No problems noted. Son No problems noted. Social History Household Members: Family Housing: Apartment Do you presently have visiting nurse or other home services: No Alcohol intake: former Patient Tobacco Use Status: Current everyday Tobacco user Tobacco use type: Cigarette Cigarettes Per Day: 10 Years Smoked: 20 e-Cigarette/Vaping Use: Never Used Second Hand Smoke Exposure: No service: No Current occupational status: disabled Current occupation: [employer] Cognitive needs: No Hearing needs: No Vision needs: Yes Physical Exam Vital Signs: Last Vital Signs Pulse 96 08/25/24 14:01 BP 110/70 08/25/24 14:01 Pulse Ox 97 08/25/24 14:01 Oxygen Delivery Method Room Air 08/25/24 14:01 BMI result Body Mass Index 42.2 Assessment & Plan Assessment & Plan (1) History of thyroid cancer: Comment: (Papillary Thyroid Carcinoma - dx 2019 - s/p thyroidectomy) Code(s): Z85.850 - Personal history of malignant neoplasm of thyroid Category: Medical Plan: 53-year-old female coming in today for follow up of history of thyroid cancer status post total thyroidectomy 10/29/[address] Violetta Lozada at [facility], with pathology showing multifocal micro PTC, with largest focus measuring 0.9 cm x 0.6 X 0.6 cm. No angioinvasion, no lymphatic invasion, no perineural invasion, negative margins, also noted to have lymphocytic thyroiditis and hyperplastic follicular nodules. AJCC stage I, pT1a NX. SINDHU initial low risk of recurrence, unclear whether she got radioactive iodine or not. currently SINDHU response to therapy not determined as patient has not had recent follow up. No recent imaging in the system. Apparently she had a whole-body scan a few years ago, we will try to obtain records. Most recent labs from July 2024 showed undetectable non stimulated thyroglobulin, with negative TG antibodies. In the past she has also had some issues with being adherent to levothyroxine therapy but now reports good administration and adherence. Note : Patient while walking out of the appointment started having chest pain, reports lightheadness dizziness, non radiation feels like a pain on the left side of her chest, she reports this occurs when she walks, improves with rest, Vitals stable, BG on sensor escobar 112 mg/dl , after sitting for 5 mins intensity of ches tpain improved to 4/10 , however concern for angina, we called EMS for her to be taken to ED for further evaluation. Based on her undetectable thyroglobulin levels, for now we will keep her TSH between 0.5-2. Currently on levothyroxine 175 mcg daily reduced from 200 mcg daily in July 2024 after TSH was noted to be low at 0.13. Plan: -continue levothyroxine 175 mcg daily -ordered ultrasound of the neck -obtain whole-body scan records -TSH, free T4 to be repeated in 2 weeks around 09/11/2024 -follow up in 8 weeks to discuss results (2) Hypothyroid: Comment: (aquired - s/p thyroidectomy for papillary thyroid carcinoma - 2019) Code(s): E03.9 - Hypothyroidism, unspecified Category: Medical Qualifiers: Hypothyroidism type: acquired Qualified Code(s): E03.9 - Hypothyroidism, unspecified Plan: Based on her undetectable thyroglobulin levels, for now we will keep her TSH between 0.5-2. Currently on levothyroxine 175 mcg daily reduced from 200 mcg daily in July 2024 after TSH was noted to be low at 0.13. Plan: -continue levothyroxine 175 mcg daily -TSH, free T4 to be repeated in 2 weeks around 09/11/2024 Plan Note : Patient while walking out of the appointment started having chest pain, reports lightheadness dizziness, non radiation feels like a pain on the left side of her chest, she reports this occurs when she walks, improves with rest, Vitals stable, BG on sensor escobar 112 mg/dl , after sitting for 5 mins intensity of ches tpain improved to 09/11 , however concern for angina, we called EMS for her to be taken to ED for further evaluation. I spent 40 minutes in reviewing the record, seeing the patient and documenting in the medical record. Orders: Orders US soft tiss head and/or neck Today Z85.850 - Personal history of malignant neoplasm of thyroid Free T4 (Free Thyroxine) 2 Weeks Z85.850 - Personal history of malignant neoplasm of thyroid Thyroid Stimulating Hormone 2 Weeks Z85.850 - Personal history of malignant neoplasm of thyroid Patient Instructions: Continue levothyroxine 175 mcg daily Do blood work around 09/11/2024 Do ultrasound of the neck, somebody is going to call you to schedule this Follow up in 8 weeks to discuss results Coding Level of Care Code Est Pt Level 4 (20264) Complex EM visit Add On G2211 Diagnoses History of thyroid cancer Z85.850 Acquired hypothyroidism E03.9 Hypothyroidism type: acquired Time Spent (min) 40
[2024-08-25 14:01] VITALS: BP 110/70; PULSE 96; O2SAT 97; BMI 42.2
== END 2024-08-25 14:43 | disposition home or self-care (01) ==
LOC: HO.ENCR 13:57
PROVIDERS: PCP Nurse Practitioner Family; Visit Provider Student in an Organized Health Care Education/Training Program
DX: Z85.850 Personal history of malignant neoplasm of thyroid (principal); E03.9 Hypothyroidism, unspecified
CPT/HCPCS: 99214; G2211

== ENCOUNTER → 2024-08-25 13:56 | Outpatient (BNVA) | payer OTHER, SELFPAY | PROVIDERS: PCP Nurse Practitioner Family; Visit Provider Student in an Organized Health Care Education/Training Program | DX: E89.0 Postprocedural hypothyroidism (principal); Z85.850 Personal history of malignant neoplasm of thyroid | CPT/HCPCS: 99212 ==

== ENCOUNTER 2024-08-25 15:10 | Emergency (ER) | payer OTHER, SELFPAY ==
[2024-08-25] VITALS (9 sets, daily range): BP systolic 103–140; BP diastolic 57–91; PULSE 82–94; RESP 16–18; TEMP 36.4–36.6; O2SAT 96–98; BMI 41.1
--- NOTE | 2024-08-25 | ECG_ITS ---
Test Reason : CHEST PAIN Blood Pressure : */* mmHG Vent. Rate : 92 BPM Atrial Rate : 92 BPM P-R Int : 162 ms QRS Dur : 72 ms QT Int : 370 ms P-R-T Axes : 38 -5 46 degrees QTcB Int : 457 ms Normal sinus rhythm Minimal voltage criteria for LVH, may be normal variant ( R in aVL ) Inferior infarct (cited on or before 20-Jul-2021) Anterior infarct (cited on or before 20-Jul-2021) Abnormal ECG When compared with ECG of 01-Sep-2023 11:17, No significant change was found Referred By: Generic ED Physician Electronically Signed By: ERICH HESS MD
[2024-08-25 15:45] LABS: Glucose, Whole Blood 81 mg/dL (60-115)
--- NOTE | 2024-08-25 16:13 | ED_ITS ---
HPI - Dizziness General Chief Complaint: Chest Pain Stated Complaint: chest pain Time Seen by Provider: 08/25/24 15:58 Source: patient History of Present Illness ED Provider: andrea phillips NP HPI Narrative: patient is a 53-year-old female who presents emergency department for evaluation. She states that for approximately 1 year she has been experiencing a near constant ringing sensation in both of her ears. Over the past 3-4 months she has been experiencing episodes of dizziness described as feeling off balance, Has associated chest pain with this typically starts on the left and radiates over towards the right and resolves within minutes during rest. typically The dizziness exacerbates with head movement or with ambulation. Over the past 2 weeks she has been feeling generalized fatigue and weakness in her legs. today she was at an endocrinology appointment for follow-up due to history of thyroid cancer, while walking in the office she endorsed the dizziness and chest pain she was therefore brought to the emergency department for further evaluation. Pre-hospital from EMS she received nitro and aspirin. She denies fevers, chills, head trauma, presyncope, syncope, headache, vision changes, nausea, vomiting, palpitations, shortness of breath, pedal edema Related Data Home Medications ?Medication ?Instructions ?Recorded ?Confirmed cyclobenzaprine 10 mg tablet 10 mg PO BEDTIME PRN 03/05/24 08/06/24 insulin degludec 200 unit/mL (3 32 unit subcut DAILY 06/25/24 08/25/24 mL) subcutaneous pen (Tresiba FlexTouch U-200 insulin) buspirone 15 mg tablet 15 mg PO BID 08/06/24 08/25/24 zolpidem 5 mg tablet 5 mg PO BEDTIME PRN 08/25/24 08/25/24 Previous Rx's ?Medication ?Instructions ?Recorded flash glucose scanning reader #1 ea 01/05/22 (FreeStyle Abdon 2 [place]) ipratropium 0.5 mg-albuterol 3 mg 3 ml inhalation Q6-8H PRN wheezing 03/28/22 (2.5 mg base)/3 mL nebulization #90 mL soln inhalational spacing device #1 ea 04/29/22 (Aerochamber Plus Z Stat spacer) blood sugar diagnostic (FreeStyle 1 strip miscellaneous QID #300 01/29/24 Lite Strips) strips blood-glucose meter (FreeStyle #1 ea 01/29/24 Lite Meter kit) lancets 28 gauge (FreeStyle #300 ea 01/29/24 Lancets) atorvastatin 40 mg tablet 40 mg PO BEDTIME 90 days #90 tabs 03/12/24 lidocaine 5 % topical patch 1 patch topical DAILY PRN pain #15 03/12/24 ea omeprazole 20 mg capsule,delayed 20 mg PO DAILY 90 days #90 caps 03/12/24 release amlodipine 10 mg tablet 10 mg PO DAILY 90 days #90 tabs 04/16/24 glucose 4 gram chewable tablet 4 g PO Q15M PRN hypoglycemia #30 05/19/24 tabs flash glucose sensor (FreeStyle #6 kits 06/05/24 Abdon 2 Sensor kit) duloxetine 60 mg capsule,delayed 60 mg PO DAILY 90 days #90 caps 06/06/24 release quetiapine 50 mg tablet 50 mg PO BEDTIME 90 days #90 tabs 06/06/24 insulin lispro 200 unit/mL (3 mL) See Rx Instructions subcut BID 30 06/25/24 subcutaneous pen days #6 mL tramadol 50 mg tablet 50 mg PO BID PRN pain 10 days #20 06/30/24 tabs tirzepatide 5 mg/0.5 mL 5 mg (0.5 mL) subcut QWEEK #2 mL 07/01/24 subcutaneous pen injector (Sher) levothyroxine 175 mcg tablet 175 mcg PO DAILY 90 days #90 tabs 07/25/24 gabapentin 800 mg tablet 800 mg PO TID #90 tabs 08/03/24 valsartan 160 1 tab PO DAILY #60 tabs 08/06/24 mg-hydrochlorothiazide 12.5 mg tablet Allergies Allergy/AdvReac Type Severity Reaction Status Date / Time doxycycline [DOXYCYCLINE] Allergy Severe THROAT Verified 08/25/24 15:35 SWELLING clindamycin [CLINDAMYCIN] Allergy Intermediate CHEST PAIN Verified 08/25/24 15:35 Sulfa (Sulfonamide Allergy Unknown makes her Verified 08/25/24 15:35 Antibiotics) sick, vomit trimethoprim [From BACTRIM] Allergy Unknown NAUSEA & Verified 08/25/24 15:35 VOMITING dulaglutide [From Trulicity] AdvReac Severe Diarrhea Verified 08/25/24 15:35 empagliflozin AdvReac Intermediate uti Verified 08/25/24 15:35 [From Jardiance] sulfamethoxazole AdvReac Mild NAUSEA & Verified 08/25/24 15:35 [From BACTRIM] VOMITING lisinopril Allergy Unknown headaches Uncoded 08/25/24 15:35 Review of Systems 2 Review of Systems: Yes all other systems are reviewed and are negative [facility] Past Medical History Attestation statement: The following information was validated with the patient. Source: old records reviewed Medical History Hypertensive retinopathy Diabetic retinopathy History of thyroid cancer Hypothyroid Uncontrolled diabetes mellitus with hyperglycemia Essential hypertension Hyperlipidemia Nicotine dependence, cigarettes, uncomplicated Sleep apnea Obesity (BMI 30-39.9) Insomnia Anxiety Depression Migraines B12 deficiency Vitamin D deficiency Hahn's palsy Sciatic leg pain Surgical History S/P thyroid biopsy History of thyroidectomy History of elbow surgery History of tubal ligation Family History Family History Father HTN (hypertension) CVD (cardiovascular disease) Diabetes mellitus Mental health disorder Mother Diabetes mellitus Uterine cancer COPD (chronic obstructive pulmonary disease) Mental health disorder Maternal Grandmother Breast cancer Paternal Aunt Breast cancer Brother No problems noted. Sister Substance use disorder Mental health disorder Sister No problems noted. Sister No problems noted. Daughter No problems noted. Son No problems noted. Son No problems noted. Son No problems noted. Son No problems noted. Son No problems noted. Son No problems noted. Social History Social History Household Members: Family Housing: Apartment Do you presently have visiting nurse or other home services: No Alcohol intake: former Patient Tobacco Use Status: Current everyday Tobacco user Tobacco use type: Cigarette Cigarettes Per Day: 10 Years Smoked: 20 Smoked in Last 30 Days: Yes e-Cigarette/Vaping Use: Never Used Second Hand Smoke Exposure: No Use of substances other than those prescribed or required for medical reasons: No Advance Directives: No Advance Directives Information Provided: No service: No Current occupational status: disabled Current occupation: [employer] Cognitive needs: No Hearing needs: No Vision needs: Yes Physical Exam 2 Vital Signs: Vital Signs: Last Vital Signs Temp 97.9 F 08/25/24 19:40 Pulse 94 08/25/24 19:40 Resp 16 08/25/24 19:40 BP 103/57 L 08/25/24 19:40 Pulse Ox 98 08/25/24 19:40 O2 Del Method Room Air 08/25/24 19:40 BMI result Body Mass Index 41.1 Appearance: Alert.?Oriented to person, place and time. No acute distress.?Normal affect. Head: Normocephalic, atraumatic. No head, sinus or TMJ tenderness.? Eyes: Sclera white, conjunctiva pink. PERRL, 3 mm bilaterally. Visual jefferson full to confrontation, EOMi.?No Nystagmus. Ears: Bilateral ear canals clear, TM visible with good cone of light.? Nose: Nasal mucosa pink and moist with midline septum, nares patent bilaterally.? Mouth/ Throat: Oral mucosa pink and moist without lesions. Pharynx normal Neck: Normal inspection.? Neck supple.?? CVS: Heart sounds normal. Normal heart rate and rhythm.? Pulses normal.?? Respiratory: No respiratory distress.? Lung sounds clear to auscultation bilaterally?? Abdomen: Soft and non-tender. Normoactive bowel sounds. No pulsatile mass.?? Skin: Skin warm and dry.? Normal skin color.? Normal skin turgor.?? Extremities: No lower extremity edema. Neuro: No focal neurological deficit observed, CN II-XII intact, normal sensory observed, normal coordination observed. Level of consciousness: Appropriate for age. Motor strength: right upper extremity 5 /5, left upper extremity 5 /5, right lower extremity 5 /5, left lower extremity 5 /5.?Speech: Normal, Gait: Normal, Bmsenp-fw-mggt test: Normal, Hvju-qg-gptt test: Normal. Ambulates with normal steady gait. Course Reevaluation(s) Reevaluation #1: Patient was significant improvement in symptoms after receiving meclizine and IV fluids. She was ambulatory without persistent episode of dizziness. Repeat orthostatic vital signs were much improved. Requesting discharge home which I feel is reasonable at this time. Reviewed strict return precautions, outpatient follow-up with PCP. All questions answered Medications Administered Discontinued Medications Generic Name Dose Route Start Last Admin Trade Name Freq PRN Reason Stop Dose Admin Sodium Chloride 1,000 mls @ 999 mls/hr 08/25/24 17:45 08/25/24 17:45 Ns IV 08/25/24 18:45 999 mls/hr .Q1H1M BE Administration Meclizine HCl 25 mg 08/25/24 16:11 08/25/24 16:37 Meclizine Hcl 25 Mg Tablet PO 08/25/24 16:12 25 mg ONCE ONE Administration Medical Decision Making Medical Decision Making [facility] Narrative: patient is a 53 old female with past medical history of hypertension, diabetes, retinopathy, thyroid cancer s/p thyroidectomy, acquired hypothyroidism, hyperlipidemia, JOSELIN, anxiety, depression, migraines, Hahn's palsy, sciatic leg pain who presents emergency department for evaluation of ongoing episodes of dizziness with the associated chest pain and tinnitus as per HPI. Neuro exam with no abnormal findings, no focal neuro deficits, no spontaneous or gaze evoked nystagmus, no ataxia, no diplopia, no dysarthria,no dysphagia, no dysphonia, no dysmetria. Will obtain CBC to evaluate for leukocytosis/ anemia, CMP to evaluate for abnormal electrolytes /abnormal renal function/ abnormal hepatic function, EKG and troponin to evaluate for ischemia/ACS. Given the sudden onset of dizziness, severe intensity, episodic nature, associated tinnitus, suspect this may be most consistent with BPPV as it is triggered with certain head movements eliciting dizziness. endorses that her mother has a longstanding history of vertigo. Obtaining orthostatic vital signs in addition. Will try a course of meclizine. Currently without any chest pain, states only ever experiences during the episodes of dizziness. Differential Diagnosis Differential Diagnoses: The differential diagnosis associated with the presentation includes ( See narrative above) Admission/Observation Consideration of admission/observation: Escalation of care including admission/observation considered Lab Data [facility] Lab Attestation statement: I reviewed the patient's lab results. 08/25/24 16:43 08/25/24 16:43 Labs: Lab Results 08/25/24 08/25/24 08/25/24 Range/Units 15:33 16:43 17:03 WBC 9.1 (4.8-10.8) X10*3/uL RBC 4.50 (4.20-5.50) X10*6/uL Hgb 13.2 (12.0-16.0) g/dl Hct 37.7 (37.0-47.0) % MCV 83.8 (80.0-98.0) fL MCH 29.3 (27.0-33.0) pg MCHC 35.0 (31.0-35.0) g/dl RDW 13.0 (11.0-16.0) % Plt Count 246 (160-400) X10*3/uL MPV 9.8 (9.4-12.3) fL Immature Gran % (Auto) 0.2 (0.0-0.4) % Neut % (Auto) 50.3 (45-73) % Lymph % (Auto) 37.4 (20-40) % [place] % (Auto) 7.6 (2-11) % Eos % (Auto) 3.5 (0-4) % Baso % (Auto) 1.0 (0-2) % Lymph # (Auto) 3.4 (1.2-4.9) X10*3/uL [place] # (Auto) 0.7 (0.1-1.2) X10*3/uL Eos # (Auto) 0.3 (0.0-0.4) X10*3/uL Baso # (Auto) 0.1 (0.0-0.2) X10*3/uL Abs Immat Gran (auto) 0.02 (0.00-0.03) X10*3/uL Absolute Neuts (auto) 4.6 (2.0-8.3) x10*3/uL Absolute Nucleated RBC 0.000 (0.0-0.012) X10*3/uL Nucleated RBC % (auto) 0.0 (0.0-0.2) /100WBC Sodium 139 (135-145) mmol/L Potassium 4.3 (3.3-5.1) mmol/L Chloride 107 (96-108) mmol/L Carbon Dioxide 28 (22-29) mmol/L Anion Gap 8 L (12-20) BUN 20 H (9-16) mg/dL Creatinine 0.80 (0.5-1.4) mg/dL Estim Creat Clear Calc 100.3 Estimated GFR > 60 POC Glucose 81 (60-115) mg/dL Random Glucose 95 (60-115) mg/dL Calcium 8.7 (8.4-10.2) mg/dL Magnesium 2.0 (1.6-2.6) mg/dL Total Bilirubin 0.4 (0.0-1.0) mg/dL Direct Bilirubin 0.1 (0.0-0.5) mg/dL AST 25 (5-31) U/L ALT 12 (0-31) U/L Alkaline Phosphatase 79 (39-117) U/L Troponin I High Sens 2.7 (<3.5-17.0) ng/L B-Natriuretic Peptide < 10 (<100) pg/mL Total Protein 6.7 (6.5-8.0) g/dL Albumin 3.4 L (3.5-5.0) g/dL TSH 0.30 L (0.32-4.0) uIU/mL Free T4 1.05 (0.71-1.85) ng/dL Urine Color Yellow Urine Appearance Clear Urine pH 6.0 (5.0-9.0) Ur Specific [place] 1.015 (1.005-1.025) Urine Protein 100 (2+) H (Neg-Trace) mg/dL Urine Glucose (UA) Negative (Negative) mg/dL Urine Ketones Negative (Negative) mg/dL Urine Blood Trace H (Negative) Urine Nitrite Negative (Negative) Ur Leukocyte Esterase Moderate (2+) H (Negative) Urine RBC 3-5 H (0-2) /HPF Urine WBC 21-50 H (0-5) /HPF Ur Squamous Epith Cells 3-5 (0-2) /HPF Urine Bacteria 1+ (None Seen) Hyaline Casts 0-2 (0-2) /LPF Influenza Type A (PCR) NEGATIVE (Negative) Influenza Type B (PCR) NEGATIVE (Negative) RSV RNA Qual (PCR) NEGATIVE (Negative) SARS-CoV-2 RNA (RT-PCR) NEGATIVE (Negative) Independent Historian Clinical information obtained from an independent historian. History obtained from or confirmed by: EMS External Record Review External record reviewed: Outpatient record Discharge Plan Discharge Clinical Impression: Dizziness Patient Disposition: Home, Self-Care Instructions: Vertigo (ED), Dizziness (ED) Additional Instructions: as discussed, that dizziness or describing in addition to the room sensation in your ears is concerning for vertigo which is typically related to an inner ear problem. You received a medication in the emergency department known as meclizine which was helpful for your symptoms. Additionally there is a slight drop in your blood pressure when you change positions which can also result in episodes of dizziness like you were describing. You received IV fluids in the emergency department but declined to stay for further hydration. It is recommended that you maintain adequate oral hydration at home consuming at least 8-12 8 oz glasses of water daily. Follow up with your primary care doctor. Return with new or worsening symptoms or concerns Prescriptions: No Action (DME) FreeStyle Abdon 2 [place] Misc See Rx Instructions .Route Qty: 1 4RF Rx Instructions: tid testing ipratropium-albuterol 0.5 mg-3 mg(2.5 mg base)/3 mL solution for nebulization 3 ml inhalation Q6-8H PRN (Reason: wheezing) Qty: 90 0RF (DME) blood-glucose meter [FreeStyle Lite Meter] Kit See Rx Instructions .Route Qty: 1 0RF Rx Instructions: As directed (DME) lancets [FreeStyle Lancets] 28 gauge misc See Rx Instructions .Route Qty: 300 1RF Rx Instructions: Test blood sugar 3 times per day FreeStyle Lite Strips Strip 1 strip miscellaneous QID Qty: 300 1RF atorvastatin 40 mg tablet 40 mg PO BEDTIME 90 Days Qty: 90 1RF lidocaine 5 % adhesive patch,medicated 1 patch topical DAILY PRN (Reason: pain) Qty: 15 0RF Rx Instructions: leave on most painful area for up to 12 hrs omeprazole 20 mg capsule,delayed release(DR/EC) 20 mg PO DAILY 90 Days Qty: 90 1RF glucose 4 gram tablet,chewable 4 g PO Q15M PRN (Reason: hypoglycemia) Qty: 30 6RF Rx Instructions: until symptoms of low blood sugar are controlled (DME) FreeStyle Abdon 2 Sensor Kit See Rx Instructions .ROUTE .COMPLEX Qty: 6 1RF Dose Instruction: USE TO MONITOR BLOOD SUGAR TWICE DAILY, CHANGE EVERY 14 DAYS. Rx Instructions: USE TO MONITOR BLOOD SUGAR TWICE DAILY, CHANGE EVERY 14 DAYS. duloxetine 60 mg capsule,delayed release(DR/EC) 60 mg PO DAILY 90 Days Qty: 90 0RF quetiapine 50 mg tablet 50 mg PO BEDTIME 90 Days Qty: 90 0RF tramadol 50 mg tablet 50 mg PO BID PRN (Reason: pain) 10 Days Qty: 20 0RF Rx Instructions: please do not take concurrently with cyclobenzaprine. do not share med, do not drive on med, and take only as prescribed...thanks levothyroxine 175 mcg tablet 175 mcg PO DAILY 90 Days Qty: 90 1RF gabapentin 800 mg tablet 800 mg PO TID Qty: 90 0RF (DME) Aerochamber Plus Z Stat Spacer See Rx Instructions .Route Qty: 1 0RF Rx Instructions: As directed amlodipine 10 mg tablet 10 mg PO DAILY 90 Days Qty: 90 1RF insulin lispro 200 unit/mL (3 mL) insulin pen See Rx Instructions subcut BID 30 Days Qty: 6 6RF Rx Instructions: 8 units twice daily subcutaneously 2 times a day; insulin degludec [Tresiba FlexTouch U-200] 200 unit/mL (3 mL) insulin pen 32 unit subcut DAILY zolpidem 5 mg tablet 5 mg PO BEDTIME PRN buspirone 15 mg tablet 15 mg PO BID valsartan-hydrochlorothiazide 160-12.5 mg tablet 1 tab PO DAILY Qty: 60 0RF cyclobenzaprine 10 mg tablet 10 mg PO BEDTIME PRN Mounjaro 5 mg/0.5 mL pen injector 5 mg subcut QWEEK Qty: 2 11RF Referrals: Adarsh Johnson, RATE QUOTING OPERATOR-BC [Primary Care Provider] - Interventions: ED Discharge Assessment Last Done: 08/25/24 19:40 Discharge Date/Time: 08/25/24 19:42 Print Language: Thai
[2024-08-25] MEDS: Meclizine HCl 25 MG TABLET PO (16:37)
[2024-08-25 16:53] LABS: MANUAL DIFF FLAG NO
[2024-08-25 16:54] LABS: Basophils Absolute Auto 0.1 X10*3/uL (0.0-0.2); Eosinophils Absolute Auto 0.3 X10*3/uL (0.0-0.4); Eosinophils Percent Auto 3.5 % (0-4); Hematocrit 37.7 % (37.0-47.0); Hemoglobin 13.2 g/dl (12.0-16.0); Imm Gran Abs Auto 0.02 X10*3/uL (0.00-0.03); Imm Gran Pct Auto 0.2 % (0.0-0.4); Lymphocytes Absolute Auto 3.4 X10*3/uL (1.2-4.9); Lymphocytes Percent Auto 37.4 % (20-40); Mean Corpuscular Hemoglobin 29.3 pg (27.0-33.0); Mean Corpuscular Volume 83.8 fL (80.0-98.0); Mean Platelet Volume 9.8 fL (9.4-12.3); Monocytes Absolute Auto 0.7 X10*3/uL (0.1-1.2); Monocytes Percent Auto 7.6 % (2-11); Neutrophils Absolute Auto 4.6 x10*3/uL (2.0-8.3); Neutrophils Percent Auto 50.3 % (45-73); Platelet Count 246 X10*3/uL (160-400); White Blood Count 9.1 X10*3/uL (4.8-10.8)
[2024-08-25 17:14] LABS: Appearance Urine Clear; Color Urine Yellow; Glucose Urine UA Negative (Negative); Leukocyte Esterase Urine Moderate (2+) (Negative); Nitrite Urine Negative (Negative); Specific Gravity - Urine 1.015 (1.005-1.025); UMIC TRIGGER UACC YES; Urine Blood Trace (Negative); Urine Ketones Negative (Negative); Urine Protein 100 (2+) mg/dL (Neg-Trace)
[2024-08-25 17:19] LABS: B Type Natriuretic Peptide < 10 pg/mL (<100)
[2024-08-25 17:20] LABS: Bacteria Urine 1+ (None Seen); Hyaline Casts Urine 0-2 /LPF (0-2); UACC Culture Trigger YES; WBC Urine 21-50 /HPF (0-5)
[2024-08-25 17:21] LABS: Alanine Aminotransferase 12 U/L (0-31); Albumin Level 3.4 g/dL (3.5-5.0); Alkaline Phosphatase 79 U/L (39-117); Anion Gap 8 (12-20); Aspartate Amino Transferase 25 U/L (5-31); Bilirubin Direct 0.1 mg/dL (0.0-0.5); Bilirubin Total 0.4 mg/dL (0.0-1.0); Blood Urea Nitrogen 20 mg/dL (9-16); Calcium 8.7 mg/dL (8.4-10.2); Carbon Dioxide 28 mmol/L (22-29); Chloride 107 mmol/L (96-108); Creatinine Clr Calc Pharmacy 100.3; Estimated Glomerular Filt Rate > 60; Glucose Random 95 mg/dL (60-115); Potassium 4.3 mmol/L (3.3-5.1); Sodium 139 mmol/L (135-145); Total Protein 6.7 g/dL (6.5-8.0)
[2024-08-25 17:22] LABS: Troponin-I High Sensitivity 2.7 ng/L (<3.5-17.0)
[2024-08-25 17:33] LABS: Influenza A PCR NEGATIVE (Negative); Influenza B PCR NEGATIVE (Negative); Resp Syncy Virus RNA Qual PCR NEGATIVE (Negative); SARS COV2 PCR INHOUSE NEGATIVE (Negative)
[2024-08-25] MEDS: 0.9 % Sodium Chloride 1,000 ML 999 ML IV (17:45)
--- NOTE | 2024-08-25 18:19 | PC.NURSE ---
Patient reports she is feeling better, fluids infusing.
[2024-08-25 18:25] LABS: Free T4 (Free Thyroxine) 1.05 ng/dL (0.71-1.85)
--- NOTE | 2024-08-25 19:22 | PC.NURSE ---
This RN entered pts room and pt hyper verbal regarding having IV and monitor removed. This RN explained d/c process to pt Plan of care ongoing.
--- NOTE | 2024-08-25 19:23 | PC.NURSE ---
This RN assumed pt care @ 1900. Pt a&ox4, no signs of distress though states I'm getting anxious. I want to go now. Take all this out Plan of care ongoing.
--- NOTE | 2024-08-25 19:36 | MHC.EDTECH ---
PATIENT WAS AMBULATED.PATIENT DENIED FEELING DIZZY.PATIENT INDICATED HAVING CHRONIC RIGHT LEG PAIN AND DOES HAVE SOME DISCOMFORT AT BASE LINE.
== END 2024-08-25 19:42 | disposition home or self-care (01) ==
PROVIDERS: Nurse Practitioner Family; Emergency Provider Emergency Medicine Emergency Medical Services; PCP Nurse Practitioner Family
DX: R42 Dizziness and giddiness (principal); R07.89 Other chest pain; F17.210 Nicotine dependence, cigarettes, uncomplicated; E11.9 Type 2 diabetes mellitus without complications; Z79.899 Other long term (current) drug therapy; Z03.818 Encounter for observation for suspected exposure to other biological agents ruled out; Z79.4 Long term (current) use of insulin
CPT/HCPCS: 0241U; 80048; 80076; 81001; 82947; 83735; 83880; 84439; 84443; 84484; 85025; 87086; 93005; 99283; 99285

== ENCOUNTER → 2024-08-25 15:39 | Outpatient (BNV) | payer OTHER, SELFPAY | PROVIDERS: Emergency Provider Emergency Medicine Emergency Medical Services; PCP Nurse Practitioner Family; Visit Provider Internal Medicine Cardiovascular Disease | DX: I25.2 Old myocardial infarction (principal) | CPT/HCPCS: 93010 ==

== ENCOUNTER 2024-09-08 11:31 | Outpatient (REF) | payer OTHER, SELFPAY ==
--- NOTE | ~2024-09-08 | US_ITS ---
EXAMINATION: US THYROID CLINICAL INFORMATION: Status post total thyroidectomy in October 2018.. COMPARISON: None available. TECHNIQUE: Linear transducer he-scale and color Doppler examination with attention to the region of the thyroid. FINDINGS: No residual thyroid gland. No gross solid or cystic lesion at the surgical site. There are at least 7 mildly prominent less than 1.3 cm cervical lymph nodes in the upper neck at levels 1B, 2, 3 and 4. US/US soft tiss head and/or neck IMPRESSION: No residual or recurrent tumor. Nonspecific prominent lymph nodes.. Electronically signed by: Nico Hwang MD 09/08/2024 03:01 PM EDT
[2024-09-08 13:58] LABS: Anion Gap 10 (12-20); Blood Urea Nitrogen 27 mg/dL (9-16); Carbon Dioxide 28 mmol/L (22-29); Chloride 105 mmol/L (96-108); Estimated Glomerular Filt Rate 60; Glucose Random 115 mg/dL (60-115); Potassium 4.5 mmol/L (3.3-5.1); Sodium 138 mmol/L (135-145); Thyroid Stimulating Hormone 0.52 uIU/mL (0.32-4.0)
[2024-09-08 14:00] LABS: Free T4 (Free Thyroxine) 0.96 ng/dL (0.71-1.85)
== END 2024-09-08 11:32 | disposition home or self-care (01) ==
LOC: HO.HMGCX 11:31
PROVIDERS: Internal Medicine Hypertension Specialist; PCP Nurse Practitioner Family; Referring Provider Student in an Organized Health Care Education/Training Program; Visit Provider Student in an Organized Health Care Education/Training Program
DX: I10 Essential (primary) hypertension (principal); Z85.850 Personal history of malignant neoplasm of thyroid
CPT/HCPCS: 36415; 76536; 80048; 84439; 84443

== ENCOUNTER → 2024-09-08 11:36 | Outpatient (BNV) | payer OTHER, SELFPAY | PROVIDERS: PCP Nurse Practitioner Family; Referring Provider Student in an Organized Health Care Education/Training Program; Visit Provider Radiology Diagnostic Radiology | DX: Z85.850 Personal history of malignant neoplasm of thyroid (principal) | CPT/HCPCS: 76536 ==

== ENCOUNTER 2024-09-11 13:02 | Outpatient (REF) | payer OTHER, SELFPAY ==
[2024-09-11 16:44] LABS: Urine Cytology See Pathology rpt
== END 2024-09-11 13:03 | disposition home or self-care (01) ==
LOC: HO.LNP 13:02
PROVIDERS: PCP Nurse Practitioner Family; Visit Provider Urology
DX: R31.29 Other microscopic hematuria (principal); R80.9 Proteinuria, unspecified; Z87.891 Personal history of nicotine dependence
CPT/HCPCS: 81003; 88112; 99212

== ENCOUNTER 2024-09-11 13:02 | Outpatient (AMB) | payer OTHER, SELFPAY ==
--- NOTE | 2024-09-11 13:33 | A.OFFVIS_ITS ---
Intake Visit Reasons: follow up/PVR Intake Note: Patient is present for follow up/PVR PVR:0ml Urology Medication:vitamin B Antibiotic Allergy:doxycycline,clindamycin,sulfa,trimethoprim,bactrim Blood Thinner:none Surgical Coordinator Required: No Allergies doxycycline [DOXYCYCLINE] Allergy (Severe, Verified 09/11/24 13:35) THROAT SWELLING clindamycin [CLINDAMYCIN] Allergy (Intermediate, Verified 09/11/24 13:35) CHEST PAIN Sulfa (Sulfonamide Antibiotics) Allergy (Unknown, Verified 09/11/24 13:35) makes her sick, vomit trimethoprim [From BACTRIM] Allergy (Unknown, Verified 09/11/24 13:35) NAUSEA & VOMITING dulaglutide [From Trulicity] Adverse Reaction (Severe, Verified 09/11/24 13:35) Diarrhea empagliflozin [From Jardiance] Adverse Reaction (Intermediate, Verified 09/11/24 13:35) uti sulfamethoxazole [From BACTRIM] Adverse Reaction (Mild, Verified 09/11/24 13:35) NAUSEA & VOMITING lisinopril Allergy (Unknown, Uncoded 08/25/24 15:35) headaches HPI Comments Details: 09/11/24--Tammy was initially evaluated due to microscopic hematuria. Comorbidity history of cigarette use. Workup included office cystoscopy. She was last seen in the office 12/13/2023 and at that time was prescribed VESIcare. She is currently not on this medication it was discontinued in March 2024 by another provider. The patient states she was in the emergency room for UTI symptoms I reviewed chart she had a CT done June 2024 kidneys were within normal limits there was a questionable 2 mm calcification in the region of the bladder with consideration that she had passed a tiny stone. Discussed with the patient the importance of hydrating well and she states she does drink a lot of water. The patient admits to being constipated and discussed increased risk of UTI with bowel conditions including constipation and diarrhea. She was counseled on the importance lifestyle changes to decrease constipation such as increasing fiber in the diet. 30 minutes spent in review of records pertaining to this visit and including [id number] discussion with the patient and documentation of this visit. Urinalysis 1+ blood, 3+ protein, The patient I Nephrology. I will send urine for cytology as long as this is within normal limits will follow-up on a p.r.n. basis. 12/13/23--Here for cystoscopy. Cystoscopy findings: mild/mod trabeculations, no suspicious bladder lesions visualized. She c/o's of urinary frequency/urgency, discussed trial vesicare. 11/01/23--Tammy is a 52-year-old female who here for evaluation due to microscopic. The patient has a history of cigarette use. Discussed reasons for blood in the urine may include but are not limited to kidney stones, cancer in the urinary tract, BPH, kidney stone disease or inflammatory conditions of the urinary tract. She had a CT scan of the abdomen pelvis kidneys 09/26/22, reviewed results, kidneys no masses or renal calculi. I have discussed workup to include cystoscopy evaluation. Will check a renal US, urine for cytology. [facility] Medical History Hypertensive retinopathy Diabetic retinopathy History of thyroid cancer Hypothyroid Uncontrolled diabetes mellitus with hyperglycemia Essential hypertension Hyperlipidemia Nicotine dependence, cigarettes, uncomplicated Sleep apnea Obesity (BMI 30-39.9) Insomnia Anxiety Depression Migraines B12 deficiency Vitamin D deficiency Hahn's palsy Sciatic leg pain Surgical History S/P thyroid biopsy History of thyroidectomy History of elbow surgery History of tubal ligation Family History Father HTN (hypertension) CVD (cardiovascular disease) Diabetes mellitus Mental health disorder Mother Diabetes mellitus Uterine cancer COPD (chronic obstructive pulmonary disease) Mental health disorder Maternal Grandmother Breast cancer Paternal Aunt Breast cancer Brother No problems noted. Sister Substance use disorder Mental health disorder Sister No problems noted. Sister No problems noted. Daughter No problems noted. Son No problems noted. Son No problems noted. Son No problems noted. Son No problems noted. Son No problems noted. Son No problems noted. Social History Household Members: Family Housing: Apartment Do you presently have visiting nurse or other home services: No Alcohol intake: former Patient Tobacco Use Status: Current everyday Tobacco user Tobacco use type: Cigarette Cigarettes Per Day: 10 Years Smoked: 20 e-Cigarette/Vaping Use: Never Used Second Hand Smoke Exposure: No service: No Current occupational status: disabled Current occupation: [employer] Cognitive needs: No Hearing needs: No Vision needs: Yes Review of Systems Const All systems reviewed & are unremarkable except as noted in HPI and below Reports no additional complaints Eyes Reports no additional complaints ENT Reports no additional complaints Card Reports no additional complaints Resp Reports no additional complaints GI Reports no additional complaints Reports as per HPI Musc Reports no additional complaints Skin/Breast Reports system reviewed and no additional complaints, except as documented Neuro Reports no additional complaints Psych Reports no additional complaints Endo Reports no additional complaints Ari/Lymph Reports no additional complaints Aller/Immun Reports no additional complaints Assessment & Plan Assessment & Plan (1) Microscopic hematuria: Code(s): R31.29 - Other microscopic hematuria Category: Medical (2) History of nicotine use: Code(s): Z87.891 - Personal history of nicotine dependence Category: Medical (3) Proteinuria: Code(s): R80.9 - Proteinuria, unspecified Category: Medical Plan urine cytology Patient Instructions: The patient had an opportunity to ask questions regarding treatment plan. The patient expressed understanding and agreement with the above treatment plan. The patient is aware they should contact our office by phone for worsening of their current condition or the appearance of new symptoms. Compliance is encouraged with any medications and followup testing that is ordered. It is a privilege to be allowed the opportunity to participate in the urologic care of your patient. If you have any questions or concerns regarding treatment for the above conditions please do not hesitate to contact me. The office t elephone contact is [phone]. This note is constructed in part using voice recognition software. While every effort has been made to ensure accuracy president and chief operating officer errors may have been included. Yours sincerely, Adam Abdalla MD Coding Level of Care Code Est Pt Level 4 (09717) Diagnoses Microscopic hematuria R31.29 History of nicotine use Z87.891 Proteinuria R80.9
== END 2024-09-11 13:58 | disposition home or self-care (01) ==
LOC: HO.HUSH 13:03
PROVIDERS: PCP Nurse Practitioner Family; Visit Provider Urology
DX: R31.29 Other microscopic hematuria (principal); Z87.891 Personal history of nicotine dependence; R80.9 Proteinuria, unspecified; Z13.9 Encounter for screening, unspecified
CPT/HCPCS: 99214

== ENCOUNTER 2024-09-15 10:53 | Outpatient (AMB) | payer OTHER, SELFPAY ==
[2024-09-15 11:11] VITALS: BP 114/66; PULSE 83; TEMP 36.1; BMI 41.9
--- NOTE | 2024-09-15 11:11 | MHC.PC.OV ---
Vital Signs 09/15/24 11:11 Height 5 ft 5 in Weight 252 lb BMI 41.9 BP 114/66 Blood Pressure Location Lt brachial Position Sitting Pulse 83 Pulse Source Pulse Oximeter Temp 97 F Temp Source Oral Intake Visit Reasons: CPE Accompanied by: Self / Same As Patient Allergies doxycycline [DOXYCYCLINE] Allergy (Severe, Verified 09/15/24 11:58) THROAT SWELLING clindamycin [CLINDAMYCIN] Allergy (Intermediate, Verified 09/15/24 11:58) CHEST PAIN Sulfa (Sulfonamide Antibiotics) Allergy (Unknown, Verified 09/15/24 11:58) makes her sick, vomit trimethoprim [From BACTRIM] Allergy (Unknown, Verified 09/15/24 11:58) NAUSEA & VOMITING dulaglutide [From Trulicity] Adverse Reaction (Severe, Verified 09/15/24 11:58) Diarrhea empagliflozin [From Jardiance] Adverse Reaction (Intermediate, Verified 09/15/24 11:58) uti sulfamethoxazole [From BACTRIM] Adverse Reaction (Mild, Verified 09/15/24 11:58) NAUSEA & VOMITING lisinopril Allergy (Unknown, Uncoded 09/15/24 11:58) headaches Medication List - Last Reconciled 09/15/24 by Adarsh Johnson, [facility]- amlodipine 10 mg PO DAILY 90 days atorvastatin 40 mg PO BEDTIME 90 days blood sugar diagnostic (FreeStyle Lite Strips) 1 strip miscellaneous QID blood-glucose meter (FreeStyle Lite Meter kit) As directed buspirone 15 mg PO BID duloxetine 60 mg PO DAILY 90 days flash glucose scanning reader (FreeStyle Abdon 2 [place]) tid testing flash glucose sensor (FreeStyle Abdon 2 Sensor kit) USE TO MONITOR BLOOD SUGAR TWICE DAILY, CHANGE EVERY 14 DAYS. gabapentin 800 mg PO TID inhalational spacing device (Aerochamber Plus Z Stat spacer) As directed insulin degludec (Tresiba FlexTouch U-200 insulin) 32 units subcut DAILY insulin lispro 8 units twice daily subcutaneously 2 times a day; 30 days lancets (FreeStyle Lancets) Test blood sugar 3 times per day levothyroxine 175 mcg PO DAILY 90 days lidocaine 5% 1 patch topical DAILY PRN meclizine 25 mg PO BID PRN 10 days omeprazole 20 mg PO DAILY 90 days quetiapine 50 mg PO BEDTIME 90 days tirzepatide (Mounjaro) 5 mg (0.5 mL) subcut QWEEK valsartan-hydrochlorothiazide 160-12.5 mg 1 tab PO DAILY zolpidem 5 mg PO BEDTIME PRN Tobacco use date assessed: 09/15/24 Dental Screening Dental Screen Date: 09/15/24 Did you have a dental visit in the last 12 months?: No Did you have a dental problem in the last 6 months where you did not have access to dental care?: No Was dental information given to patient?: Patient declined HPI CPE HPI Details History of Present Illness The patient is a 53-year-old female presenting for a routine physical examination and health maintenance. She has Type 2 Diabetes Mellitus, with recent improvement noted, as indicated by her HbA1c levels now in the 6% range (pt reports). She is managing her diabetes with the assistance of an letter of credit document examiner and has begun Mounjaro. She reports peripheral neuropathy symptoms, described as numbness and tingling in the bilateral extremities, for which she uses Gabapentin and finds relief with Tylenol. Aside from diabetes management, her health maintenance includes regular specialist visits, with recent mammograms and colorectal screenings updated. The patient is a smoker, which has prompted a referral for lung screening via low-dose CT. An oral-surgical evaluation is needed due to a papular lesion identified on the lower lip. Efforts at smoking cessation have included unsuccessful attempts with nicotine patches and gum, with new plans to use lozenges. Health Maintenance - Regular follow-up with letter of credit document examiner for diabetes management. - Consistent ophthalmologic exams for diabetic retinopathy screening. - Regular specialist consultations with a urologist and computer artist. - Up-to-date mammograms and colorectal cancer screening with [facility]. - Referral for lung cancer screening due to smoking status. - Planned referral to oral surgeon for papular lesion on lower lip. Social History - Smoking: Active smoker with a history of previous unsuccessful cessation attempts with nicotine patches and gum. Plans to try nicotine lozenges. - Weight: Morbidly obese, currently on Mounjaro for weight and diabetes management. Review of Systems - Endocrine: Reports regular visits to letter of credit document examiner; recent A1c in the 6% range. - Neurological: Reports numbness and tingling in bilateral extremities. - Oral: Reports papular lesion on lower lip. - Respiratory: Active smoker; referral planned for lung screening. - General: Morbid obesity. -denies any cp,increased sob, fevers, chills, n/v, si or hi Physical Exam General: Cooperative, healthy appearing, comfortable, no acute distress and well developed. Patient is morbidly obese. Orientation: Patient oriented x3 Limitations: No limitations Head: Normal to inspection Ears: Hearing grossly normal bilaterally Nose: Normal external nose present Face and sinus: Normal facial exam Eyes: Appearance normal, both eyes and all related structures Neck: Normal visual inspection and Yes full ROM Respiratory: Normal respiratory effort and able to speak in complete sentences. Clear to auscultation bilaterally. S1 S2 lungs were diminished over moving air. Cardiovascular: Regular rate and rhythm. Normal S1 and S2 GI: Normal to inspection. Soft to palpation and nontender Skin: No rashes or lesions noted. Inner lower lip with papular lesion, more skin colored. Neuro: Patient oriented x3 Extremities: Normal to inspection. Reports numbness and tingling to bilateral extremities. Results Plan The patient will continue her current management plan for Type 2 Diabetes Mellitus with Mounjaro and letter of credit document examiner follow-up, given her improved A1c readings. Peripheral neuropathy is managed with Gabapentin, and the use of Tylenol is beneficial. Smoking cessation is encouraged with a plan to try nicotine lozenges. A referral is made for a lung cancer screening with a low-dose CT scan due to her ongoing smoking status. The papular lesion on her lower lip requires further evaluation by an oral surgeon. Continued monitoring and regular check-ups with her healthcare specialists are advised. Patient was informed and verbally consented to the use of an ambient scribe for clinic note documentation during this visit. Discussion Notes I discussed with the patient the ongoing management of her Type 2 Diabetes Mellitus and the positive progress noted with her recent A1c improvement. We reviewed her management plan, including the use of Mounjaro and her current diabetes medications. We addressed her peripheral neuropathy symptoms, focusing on the continued use of Gabapentin and supplementary Tylenol. We explored options for smoking cessation, with an emphasis on nicotine lozenges as a viable option given her previous issues with patches and gum. The necessity of a lung cancer screening with a low-dose CT scan was conveyed in light of her smoking status. Additionally, details on the observed papular lesion on her lower lip were addressed, and I recommended a referral to an oral surgeon for further assessment. The importance of follow-up care with her specialists and regular health maintenance checks were reiterated. Patient Instructions - Continue diabetes medications as prescribed and monitor blood sugar levels regularly. - Use Gabapentin and Tylenol as needed to manage symptoms of peripheral neuropathy. - Try nicotine lozenges to aid in smoking cessation efforts. - Follow up with scheduled low-dose CT scan for lung screening. - Attend referral appointment for evaluation of lower lip lesion. - Maintain regular visits with healthcare specialists and keep up with health maintenance screenings. [facility] Medical History Hypertensive retinopathy Diabetic retinopathy History of thyroid cancer Hypothyroid Uncontrolled diabetes mellitus with hyperglycemia Essential hypertension Hyperlipidemia Nicotine dependence, cigarettes, uncomplicated Sleep apnea Obesity (BMI 30-39.9) Insomnia Anxiety Depression Migraines B12 deficiency Vitamin D deficiency Hahn's palsy Sciatic leg pain Surgical History S/P thyroid biopsy History of thyroidectomy History of elbow surgery History of tubal ligation Family History Father HTN (hypertension) CVD (cardiovascular disease) Diabetes mellitus Mental health disorder Mother Diabetes mellitus Uterine cancer COPD (chronic obstructive pulmonary disease) Mental health disorder Maternal Grandmother Breast cancer Paternal Aunt Breast cancer Brother No problems noted. Sister Substance use disorder Mental health disorder Sister No problems noted. Sister No problems noted. Daughter No problems noted. Son No problems noted. Son No problems noted. Son No problems noted. Son No problems noted. Son No problems noted. Son No problems noted. Social History Household Members: Family Housing: Apartment Do you presently have visiting nurse or other home services: No Alcohol intake: former Patient Tobacco Use Status: Current everyday Tobacco user Tobacco use type: Cigarette Cigarettes Per Day: 10 Years Smoked: 20 e-Cigarette/Vaping Use: Never Used Second Hand Smoke Exposure: No service: No Current occupational status: disabled Current occupation: [employer] Cognitive needs: No Hearing needs: No Vision needs: Yes Questionnaire PHQ-9 Over the last 2 weeks, how often have you been bothered by any of the following problems? 1. Little interest or pleasure in doing things: more than half the days 2. Feeling down, depressed, or hopeless: more than half the days 3. Trouble falling or staying asleep, or sleeping too much: several days 4. Feeling tired or having little energy: more than half the days 5. Poor appetite or overeating: several days 6. Feeling bad about yourself - or that you are a failure or have let yourself or your family down: more than half the days 7. Trouble concentrating on things, such as reading the newspaper or watching television: several days 8. Moving or speaking so slowly that other people could have noticed. Or the opposite - being so fidgety or restless that you have been moving around a lot more than usual: not at all 9. Thoughts that you would be better off or of hurting yourself in some way: not at all Total score: 11 Depression Screening Interpretation: Positive Depression Screening Follow-up: Existing condition and In treatment Depression Screening Done: Yes 75507 - PHQ-9 Billing: Yes Source: Developed by Drs. Jonathon Kenyon, Valeri Rios, Ulysses Gambino and colleagues, with an educational harrison from [employer]. Thrive Questionnaire Date Thrive assessed: 09/15/24 I am a: Patient What is your living situation today?: I have a steady place to live Within the past 12 months, did the food you bought not last and you didn't have the money to get more?: Sometimes True Within the past 12 months, did you worry whether your food would run out before you got money to buy more?: Sometimes True Do you have trouble paying for medicines?: No Do you have trouble getting transportation to medical appointments?: No Do you have trouble paying your heating and electricity bill?: No Do you have trouble taking care of your child, family member or friend?: No Do you have trouble with day-to-day activities such as bathing, preparing meals, shopping, managing finances, etc.?: Yes Are you currently unemployed and looking for a job?: Yes Are you interested in more education?: No Please select the resources that you would like help with: Daily support Currently or been in a relationship where the following occur: No concerns reported THRIVE Score: 2 AUDIT C Alcohol Use Questionnaire (AUDIT-C) 1. How often do you have a drink containing alcohol?: Monthly or less 2. How many drinks containing alcohol do you have on a typical day when you are drinking?: 1 or 2 3. How often do you have six or more drinks on one occasion?: Never Total Score: 1 Score Reviewed/Action Taken: Yes MILLIE-7 AMB Questionnaire MILLIE-7 Date MILLIE - 7 assessed: 09/15/24 Feeling nervous, anxious, or on edge: 2 = More than half the days Not being able to stop or control worryin = Several days Worrying too much about different things: 1 = Several days Trouble relaxin = Several days Being so restless that it is hard to sit still: 1 = Several days Becoming easily annoyed or irritable: 1 = Several days Feeling afraid as if something awful might happen: 3 = Nearly every day Total MILLIE-7 score (0-4 normal; 5-9 mild; 10-14 moderate; 15-21 severe): 10 Source: Developed by Drs. Jonathon Kenyon, Valeri Rios, Ulysses Gambino and colleagues, with an educational harrison from [employer]. MILLIE-7 Assessment Billing MILLIE-7 Assessment Tool: MILLIE-7 Assessment 64435 Physical exam (Primary Care) Vital Signs: Last Vital Signs Temp 97 F 09/15/24 11:11 Pulse 83 09/15/24 11:11 BP 114/66 09/15/24 11:11 BMI result Body Mass Index 41.9 Tobacco/Smoking Status: Tobacco use Status Tobacco use date assessed 09/15/24 09/15/24 11:12 Patient Tobacco Use Status Current everyday Tobacco 09/15/24 11:12 Tobacco use type Cigarette 09/15/24 11:12 e-Cigarette/Vaping Use Never Used 09/15/24 11:12 PHQ-9: PHQ-9 Score PHQ-9: Total score 11 09/15/24 11:19 Depression Screening Interpretation: Positive Depression Screening Follow-up: Existing condition and In treatment Thrive Assessment: Date of Thrive Assessment Date Thrive assessed 09/15/24 09/15/24 11:19 Currently or been in a relationship where the following occur: No concerns reported Coding Level of Care Code Est Pt Prev Care 40-64y(17498) Diagnoses Smoker F17.200 B12 deficiency E53.8 Nicotine dependence, cigarettes, uncomplicated F17.210 Physical exam Z00.00 Oral lesion K13.70 Uncontrolled diabetes mellitus with hyperglycemia E11.65 Additional Codes MILLIE-7 Assessment Billing - MILLIE-7 Assessment Tool: MILLIE-7 Assessment 72762 ([id number]) PHQ-9 - 95683 - PHQ-9 Billing: Yes ([id number]) Assessment & Plan Assessment & Plan (1) Smoker: Code(s): F17.200 - Nicotine dependence, unspecified, uncomplicated Category: Social Hx (2) B12 deficiency: Code(s): E53.8 - Deficiency of other specified B group vitamins Category: Medical (3) Nicotine dependence, cigarettes, uncomplicated: Comment: (current smoker) Code(s): F17.210 - Nicotine dependence, cigarettes, uncomplicated Category: Medical (4) Physical exam: Code(s): Z00.00 - Encounter for general adult medical examination without abnormal findings Category: Medical (5) Oral lesion: Code(s): K13.70 - Unspecified lesions of oral mucosa Category: Medical Plan: . (6) Uncontrolled diabetes mellitus with hyperglycemia: Code(s): E11.65 - Type 2 diabetes mellitus with hyperglycemia Category: Medical Plan . Orders: Orders Complete Blood Count Auto Diff Today E53.8 - Deficiency of other specified B group vitamins, F17.210 - Nicotine dependence, cigarettes, uncomplicated Comprehensive [place]. Panel Fast Today E53.8 - Deficiency of other specified B group vitamins, F17.210 - Nicotine dependence, cigarettes, uncomplicated TSH reflex Free T4 Today E53.8 - Deficiency of other specified B group vitamins, F17.210 - Nicotine dependence, cigarettes, uncomplicated UA CC w/rflx Micro + Cult Today E53.8 - Deficiency of other specified B group vitamins, F17.210 - Nicotine dependence, cigarettes, uncomplicated Vitamin B12 and Folate Today E53.8 - Deficiency of other specified B group vitamins, F17.210 - Nicotine dependence, cigarettes, uncomplicated Lipid Panel Today E53.8 - Deficiency of other specified B group vitamins, F17.210 - Nicotine dependence, cigarettes, uncomplicated Microalbumin, Random (w Creat) Today E11.65 - Type 2 diabetes mellitus with hyperglycemia Referrals Oral Surgery Referal K13.70 - Unspecified lesions of oral mucosa Lung Cancer Screening Referral F17.200 - Nicotine dependence, unspecified, uncomplicated Medications: New nicotine 1 patch transdermal DAILY 28 ea 0RF nicotine (polacrilex) 4 mg buccal Q6H PRN 108 ea 0RF nicotine cravings
== END 2024-09-15 13:03 | disposition home or self-care (01) ==
LOC: HO.HMCC 11:07
PROVIDERS: PCP Nurse Practitioner Family; Visit Provider Nurse Practitioner Family
DX: Z00.00 Encounter for general adult medical examination without abnormal findings (principal); E11.65 Type 2 diabetes mellitus with hyperglycemia; F17.200 Nicotine dependence, unspecified, uncomplicated; E53.8 Deficiency of other specified B group vitamins; F17.210 Nicotine dependence, cigarettes, uncomplicated; K13.70 Unspecified lesions of oral mucosa

== ENCOUNTER → 2024-09-15 10:53 | Outpatient (BNVA) | payer OTHER, SELFPAY | PROVIDERS: PCP Nurse Practitioner Family; Visit Provider Nurse Practitioner Family | DX: Z00.00 Encounter for general adult medical examination without abnormal findings (principal); E53.8 Deficiency of other specified B group vitamins; K13.70 Unspecified lesions of oral mucosa; E11.65 Type 2 diabetes mellitus with hyperglycemia; F17.210 Nicotine dependence, cigarettes, uncomplicated; Z71.6 Tobacco abuse counseling | CPT/HCPCS: 96127; 99396 ==

== ENCOUNTER 2024-10-03 13:36 | Outpatient (AMB) | payer OTHER, SELFPAY ==
--- NOTE | 2024-10-03 13:38 | A.OFFVIS_ITS ---
Vital Signs 10/03/24 13:40 Height 5 ft 5 in Weight 249 lb 1.957 oz BMI 41.5 BP 134/80 Blood Pressure Location Rt brachial Position Sitting Pulse 102 H Pulse Source Pulse Oximeter Pulse Oximetry (%) 98 Oxygen Delivery Method Room Air Intake Visit Reasons: Type 2 DM Intake Note: Patient presents today for a follow-up on Type 2 Diabetes Mellitus: Last Diabetic eye exam was on: Feb 08, 2024, getting eyes injections. Last Podiatry exam was on: Does not see a Coiler Operator Most recent HbA1c: 6.3%, 10/03/2024 Random Glucose- 108 mg/dL, Today Morphology Teacher Required: No Accompanied by: Self / Same As Patient Allergies doxycycline [DOXYCYCLINE] Allergy (Severe, Verified 10/03/24 13:47) THROAT SWELLING clindamycin [CLINDAMYCIN] Allergy (Intermediate, Verified 10/03/24 13:47) CHEST PAIN Sulfa (Sulfonamide Antibiotics) Allergy (Unknown, Verified 10/03/24 13:47) makes her sick, vomit trimethoprim [From BACTRIM] Allergy (Unknown, Verified 10/03/24 13:47) NAUSEA & VOMITING dulaglutide [From Trulicity] Adverse Reaction (Severe, Verified 10/03/24 13:47) Diarrhea empagliflozin [From Jardiance] Adverse Reaction (Intermediate, Verified 10/03/24 13:47) uti sulfamethoxazole [From BACTRIM] Adverse Reaction (Mild, Verified 10/03/24 13:47) NAUSEA & VOMITING lisinopril Allergy (Unknown, Uncoded 10/03/24 13:47) headaches Medication List - Last Reconciled 10/03/24 by Philomena Adam NP amlodipine 10 mg PO DAILY 90 days atorvastatin 40 mg PO BEDTIME 90 days blood sugar diagnostic (FreeStyle Lite Strips) 1 strip miscellaneous QID blood-glucose meter (FreeStyle Lite Meter kit) As directed buspirone 15 mg PO BID docusate sodium (Colace) 100 mg PO DAILY 30 days duloxetine 60 mg PO DAILY 90 days flash glucose scanning reader (FreeStyle Abdon 2 [place]) tid testing flash glucose sensor (FreeStyle Abdon 2 Sensor kit) USE TO MONITOR BLOOD SUGAR TWICE DAILY, CHANGE EVERY 14 DAYS. gabapentin 800 mg PO TID inhalational spacing device (Aerochamber Plus Z Stat spacer) As directed insulin degludec (Tresiba FlexTouch U-200 insulin) 36 units subcut DAILY insulin lispro 8 units twice daily subcutaneously 2 times a day; 30 days lancets (FreeStyle Lancets) Test blood sugar 3 times per day levothyroxine 175 mcg PO DAILY 90 days lidocaine 5% 1 patch topical DAILY PRN meclizine 25 mg PO BID PRN 10 days nicotine 1 patch transdermal DAILY nicotine (polacrilex) 4 mg buccal Q6H PRN omeprazole 20 mg PO DAILY 90 days quetiapine 50 mg PO BEDTIME 90 days tirzepatide (Mounjaro) 7.5 mg (0.75 mL) subcut QWEEK 28 days valsartan-hydrochlorothiazide 160-12.5 mg 1 tab PO DAILY zolpidem 5 mg PO BEDTIME PRN HPI Comments Details: 53 YO female who is seen in f/u for T2DM. She was last seen 06/25/24. Hgb A1C 10/03/24 6.3 % down from A1c 13.9% 01/01/2024. She has a history of thyroid papillary carcinoma status post thyroidectomy 2018.She was previously seen at [facility] and is now folllowed by Dr. Tirado at [facility]. Initially diagnosed with T2DM in [diagnosed age 29]. Had twins at age 27 and rowan d gestational diabetes Was initially started on treatment with metformin had GI issues, glyburide ineffective, jardiance became dehydrated at the time had very high sugars, trulicity: diarrhea explosive/vomiting, ozempic wasn't covered by insurance, dwaine felt poorly Has been seen by weight management clinic and was diagnosed with an eating disorder (binge) She is currently seeing a therapist for this. Less binge eating at present. Skips meals at times. Eventually would like to pursue bariatric surgery but not at this time Breakfast egg,occ sausage, avacado toast, skips lunch, dinner fish/protein, rice and veg She occasionally binges Gets some constipation from mounjaro Current regimen Tresiba u200 36 units Humalog 8-10 units 1-2 times per day before meals brunch/supper mounjaro 5mg Treats lows with juice, eats something, 15 carb grams of marshmellows Has occasional low Family history of T2DM in mom, dad, grandmother. Has retinopathy Has eyes checked yearly, last eye exam one month ago getting injections for retinopathy, per patient opth says eyes are improving will need laser surgery has improved by 50% Has neuropathy numbness, tingling, occ burning pain last foot exam today no recent podiatry she has thickened toenails and would like referral to podiatry. Several have been placed recently but patient reports not being able to schedule/didn't receive Has nephropathy, on ARB which was recently increased by her PCP.. Macroalbuminuria 391 ramana/alb ratio:[id number] Sees nephrology [facility] [Has] HLD, on [statin]. Last LDL [95] [Denies] CAD. Has some neck, right shoulder pain chronic Diet: less binging since on mounjaro, trying to balance Weight: walks most days [facility] Medical History Hypertensive retinopathy Diabetic retinopathy History of thyroid cancer Hypothyroid Uncontrolled diabetes mellitus with hyperglycemia Essential hypertension Hyperlipidemia Nicotine dependence, cigarettes, uncomplicated Sleep apnea Obesity (BMI 30-39.9) Insomnia Anxiety Depression Migraines B12 deficiency Vitamin D deficiency Hahn's palsy Sciatic leg pain Surgical History S/P thyroid biopsy History of thyroidectomy History of elbow surgery History of tubal ligation Family History Father HTN (hypertension) CVD (cardiovascular disease) Diabetes mellitus Mental health disorder Mother Diabetes mellitus Uterine cancer COPD (chronic obstructive pulmonary disease) Mental health disorder Maternal Grandmother Breast cancer Paternal Aunt Breast cancer Brother No problems noted. Sister Substance use disorder Mental health disorder Sister No problems noted. Sister No problems noted. Daughter No problems noted. Son No problems noted. Son No problems noted. Son No problems noted. Son No problems noted. Son No problems noted. Son No problems noted. Social History Household Members: Family Housing: Apartment Do you presently have visiting nurse or other home services: No Alcohol intake: former Patient Tobacco Use Status: Current everyday Tobacco user Tobacco use type: Cigarette Cigarettes Per Day: 10 Years Smoked: 20 e-Cigarette/Vaping Use: Never Used Second Hand Smoke Exposure: No service: No Current occupational status: disabled Current occupation: [employer] Cognitive needs: No Hearing needs: No Vision needs: Yes Physical Exam Vital Signs: Last Vital Signs Pulse 102 H 10/03/24 13:40 BP 134/80 10/03/24 13:40 Pulse Ox 98 10/03/24 13:40 Oxygen Delivery Method Room Air 10/03/24 13:40 BMI result Body Mass Index 41.5 Const Other: Absence of Cushingoid features. Absence of acromegalic features. Neck exam reveals nl size thyroid about 15 gms. No thyroid nodules palpable. Heart S1 S2, Reg R/R. No M/R G. Skin exam reveals absence of vitiligo or acanthosis nigricans. Visual exam of foot performed. No ulcerations or open lesions. No inter digit maceration or fissuring. + onychomycos nailbeds thickened and yellow, no callouses. Sensation intact to monofilament exam. Vibratory sensation is normal with 128 Hz tuning fork. Results AMB Hemoglobin A1c AMB Hemoglobin A1c 6.3 % Last Edit by LIONEL Enriquez on 10/03/24 13:57 Results Reviewed Results Reviewed: Laboratory Last Values Glucose (Clinic) 108 mg/dL (60-115) 10/03/24 13:46 Hgb A1c (Clinic) 6.3 % (4.0-6.0) H 10/03/24 13:56 Assessment & Plan Assessment & Plan (1) Uncontrolled diabetes mellitus with hyperglycemia: Code(s): E11.65 - Type 2 diabetes mellitus with hyperglycemia Category: Medical Plan: 53-year-old type 2 diabetic with stable retinopathy, neuropathy and nephropathy followed by Nephrology with the excellent glycemic control. A1c now 6.3%. Continue same dose of Tresiba Reduce short-acting by 2 units Increase Mounjaro to 7.5 mg She was cautioned to increase her water and fiber consumption to prevent constipation at the increased dose. If this develops in his persistent we can fall back down to the 5 mg dosing. She was counseled to add a short walk in the evening The patient had an opportunity to ask questions regarding treatment plan. The pa camelia expressed understanding and agreement with the above treatment plan. The patient is aware they should contact our office by phone for worsening glucose readings or for any low blood sugars which may warrant a change in diabetes medication. Compliance is encouraged with medications and any followup testing/consults which may have been ordered. Orders: Orders AMB Hemoglobin A1c Today E11.65 - Type 2 diabetes mellitus with hyperglycemia Referrals Podiatry Referral E11.65 - Type 2 diabetes mellitus with hyperglycemia Medications: New docusate sodium (Colace) 100 mg PO DAILY 30 days 30 caps 6RF Changed From tirzepatide (Mounjaro) 5 mg (0.5 mL) subcut QWEEK 2 mL 11RF To tirzepatide (Mounjaro) 7.5 mg (0.75 mL) subcut QWEEK 28 days 3 mL 11RF Coding Level of Care Code Est Pt Level 4 (16793) Complex EM visit Add On G2211 Diagnoses Uncontrolled diabetes mellitus with hyperglycemia E11.65 Time Spent (min) 30 Comment Time spent reviewing labs/provider notes, face to face, chart doc
[2024-10-03 13:40] VITALS: BP 134/80; PULSE 102; O2SAT 98; BMI 41.5
[2024-10-03 13:51] LABS: Glucose, Whole Blood 108 mg/dL (60-115)
== END 2024-10-03 14:23 | disposition home or self-care (01) ==
LOC: HO.ENCR 13:37
PROVIDERS: PCP Nurse Practitioner Family; Visit Provider Nurse Practitioner Adult Health
DX: E11.65 Type 2 diabetes mellitus with hyperglycemia (principal)
CPT/HCPCS: 99214; G2211

== ENCOUNTER → 2024-10-03 13:36 | Outpatient (BNVA) | payer OTHER, SELFPAY | PROVIDERS: PCP Nurse Practitioner Family; Visit Provider Nurse Practitioner Adult Health | DX: E11.65 Type 2 diabetes mellitus with hyperglycemia (principal) | CPT/HCPCS: 82947; 83036; 99212 ==

== ENCOUNTER 2024-10-08 11:40 | Outpatient (AMB) | payer OTHER, SELFPAY ==
[2024-10-08 11:42] VITALS: BP 134/78; PULSE 94; O2SAT 97; BMI 41.6
--- NOTE | 2024-10-08 11:42 | HO.NEPHOV ---
Vital Signs 10/08/24 11:42 Height 5 ft 5 in Weight 250 lb BMI 41.6 BP 134/78 Blood Pressure Location Lt brachial Position Sitting Pulse 94 Pulse Source Pulse Oximeter Pulse Oximetry (%) 97 Intake Visit Reasons: FU/ Conf Ladder Operator Required: No Accompanied by: Self / Same As Patient Allergies doxycycline [DOXYCYCLINE] Allergy (Severe, Verified 10/08/24 11:44) THROAT SWELLING clindamycin [CLINDAMYCIN] Allergy (Intermediate, Verified 10/08/24 11:44) CHEST PAIN Sulfa (Sulfonamide Antibiotics) Allergy (Unknown, Verified 10/08/24 11:44) makes her sick, vomit trimethoprim [From BACTRIM] Allergy (Unknown, Verified 10/08/24 11:44) NAUSEA & VOMITING dulaglutide [From Trulicity] Adverse Reaction (Severe, Verified 10/08/24 11:44) Diarrhea empagliflozin [From Jardiance] Adverse Reaction (Intermediate, Verified 10/08/24 11:44) uti sulfamethoxazole [From BACTRIM] Adverse Reaction (Mild, Verified 10/08/24 11:44) NAUSEA & VOMITING lisinopril Allergy (Unknown, Uncoded 10/03/24 13:47) headaches Medication List - Last Reconciled 10/08/24 by Con Mendez MD amlodipine 10 mg PO DAILY 90 days atorvastatin 40 mg PO BEDTIME 90 days blood sugar diagnostic (FreeStyle Lite Strips) 1 strip miscellaneous QID blood-glucose meter (FreeStyle Lite Meter kit) As directed buspirone 15 mg PO BID docusate sodium (Colace) 100 mg PO DAILY 30 days duloxetine 60 mg PO DAILY 90 days flash glucose scanning reader (FreeStyle Abdon 2 [place]) tid testing flash glucose sensor (FreeStyle Abdon 2 Sensor kit) USE TO MONITOR BLOOD SUGAR TWICE DAILY, CHANGE EVERY 14 DAYS. gabapentin 800 mg PO TID inhalational spacing device (Aerochamber Plus Z Stat spacer) As directed insulin degludec (Tresiba FlexTouch U-200 insulin) 36 units subcut DAILY insulin lispro 8 units twice daily subcutaneously 2 times a day; 30 days lancets (FreeStyle Lancets) Test blood sugar 3 times per day levothyroxine 175 mcg PO DAILY 90 days lidocaine 5% 1 patch topical DAILY PRN meclizine 25 mg PO BID PRN 10 days nicotine 1 patch transdermal DAILY nicotine (polacrilex) 4 mg buccal Q6H PRN omeprazole 20 mg PO DAILY 90 days quetiapine 50 mg PO BEDTIME 90 days tirzepatide (Mounjaro) 7.5 mg (0.75 mL) subcut QWEEK 28 days valsartan-hydrochlorothiazide 160-12.5 mg 1 tab PO DAILY zolpidem 5 mg PO BEDTIME PRN HPI Comments Details: . Tammy is a pleasant 53-year-old woman with a history of hypertension since 1999. Blood sugar has been suboptimally controlled. She has a history of hypertension as well. Her baseline creatinine used to be around 0.8 mg/dL which has gradually increased to 1.02 mg/dL. She was recently found to have proteinuria. She also had microscopic hematuria. She was seen by Urology and underwent cystoscopy which has essentially unremarkable. Diabetes mellitus is complicated by diabetic retinopathy. She was significant obesity. She was recently prescribed Victoza and she is yet to start this. 04/16/24;Doing better ;Not taking Victoza ;Waiting to start Mounjaro ;Did not undergo blood and urine test 08/06/2024. Recently he had an episode of abdominal colic and subsequently had a kidney stone. This was complicated by UTI. She passed the stone spontaneously. She was not lost any weight. 10/08/24: Event s, noted A1C is better - Maunjaro increased 7.5 on 10/03/24- yet to start PFSH Medical History Hypertensive retinopathy Diabetic retinopathy History of thyroid cancer Hypothyroid Uncontrolled diabetes mellitus with hyperglycemia Essential hypertension Hyperlipidemia Nicotine dependence, cigarettes, uncomplicated Sleep apnea Obesity (BMI 30-39.9) Insomnia Anxiety Depression Migraines B12 deficiency Vitamin D deficiency Hahn's palsy Sciatic leg pain Surgical History S/P thyroid biopsy History of thyroidectomy History of elbow surgery History of tubal ligation Family History Father HTN (hypertension) CVD (cardiovascular disease) Diabetes mellitus Mental health disorder Mother Diabetes mellitus Uterine cancer COPD (chronic obstructive pulmonary disease) Mental health disorder Maternal Grandmother Breast cancer Paternal Aunt Breast cancer Brother No problems noted. Sister Substance use disorder Mental health disorder Sister No problems noted. Sister No problems noted. Daughter No problems noted. Son No problems noted. Son No problems noted. Son No problems noted. Son No problems noted. Son No problems noted. Son No problems noted. Social History Household Members: Family Housing: Apartment Do you presently have visiting nurse or other home services: No Alcohol intake: former Patient Tobacco Use Status: Current everyday Tobacco user Tobacco use type: Cigarette Cigarettes Per Day: 10 Years Smoked: 20 e-Cigarette/Vaping Use: Never Used Second Hand Smoke Exposure: No service: No Current occupational status: disabled Current occupation: [employer] Cognitive needs: No Hearing needs: No Vision needs: Yes Physical Exam Vital Signs: Last Vital Signs Pulse 94 10/08/24 11:42 BP 134/78 10/08/24 11:42 Pulse Ox 97 10/08/24 11:42 BMI result Body Mass Index 41.6 Results Reviewed Nephrology Results: Hgb 13.2 g/dl (12.0-16.0) 08/25/24 WBC 9.1 X10*3/uL (4.8-10.8) 08/25/24 Plt Count 246 X10*3/uL (160-400) 08/25/24 Sodium 138 mmol/L (135-145) 09/08/24 Potassium 4.5 mmol/L (3.3-5.1) 09/08/24 Chloride 105 mmol/L (96-108) 09/08/24 Carbon Dioxide 28 mmol/L (22-29) 09/08/24 BUN 27 mg/dL (9-16) H 09/08/24 Creatinine 0.97 mg/dL (0.5-1.4) 09/08/24 Calcium 9.0 mg/dL (8.4-10.2) 09/08/24 Urine Protein 100 (2+) mg/dL (Neg-Trace) H 08/25/24 Assessment & Plan Assessment & Plan (1) Essential hypertension: Code(s): I10 - Essential (primary) hypertension Category: Medical Plan 53-year-old woman with longstanding diabetes mellitus and hypertension with proteinuria. Given the history of diabetic retinopathy she likely has underlying diabetic nephropathy to explain the proteinuria. Nondiabetic causes seem less likely at this point. She has mild CKD most likely due to diabetic nephropathy. The blood pressure is better controlled Recommendation Keep amlodipine 10 mg. Keep valsartan HCTZ 160/12.5 Discussed importance of weight loss. She should stay on low-sodium diet. Discussed importance of tight control blood sugar to maintain A1c less than 7%. No changes were made today . Orders: Orders Basic Metabolic Panel 3 Months I10 - Essential (primary) hypertension Coding Level of Care Code Est Pt Level 4 (21613) Diagnoses Essential hypertension I10
== END 2024-10-08 12:04 | disposition home or self-care (01) ==
LOC: HO.HKAS 11:41
PROVIDERS: PCP Nurse Practitioner Family; Visit Provider Internal Medicine Hypertension Specialist
DX: I10 Essential (primary) hypertension (principal)
CPT/HCPCS: 99214

== ENCOUNTER → 2024-10-08 11:40 | Outpatient (BNVA) | payer OTHER, SELFPAY | PROVIDERS: PCP Nurse Practitioner Family; Visit Provider Internal Medicine Hypertension Specialist | DX: I10 Essential (primary) hypertension (principal) | CPT/HCPCS: 99212 ==

== ENCOUNTER 2024-10-20 12:33 | Outpatient (AMB) | payer OTHER, SELFPAY ==
--- NOTE | 2024-10-20 12:35 | A.OFFVIS_ITS ---
Vital Signs 3 10/20/24 12:38 Height 5 ft 5 in Weight 251 lb 5.231 oz BMI 41.8 BP 142/84 H Blood Pressure Location Rt brachial Position Sitting Pulse 88 Pulse Source Pulse Oximeter Pulse Oximetry (%) 95 Oxygen Delivery Method Room Air Intake Visit Reasons: US, Labs f/u Intake Note: Patient present today for Thyroid Cancer follow up. School Aide Required: No Accompanied by: Self / Same As Patient Allergies doxycycline [DOXYCYCLINE] Allergy (Severe, Verified 10/20/24 12:39) THROAT SWELLING clindamycin [CLINDAMYCIN] Allergy (Intermediate, Verified 10/20/24 12:39) CHEST PAIN Sulfa (Sulfonamide Antibiotics) Allergy (Unknown, Verified 10/20/24 12:39) makes her sick, vomit trimethoprim [From BACTRIM] Allergy (Unknown, Verified 10/20/24 12:39) NAUSEA & VOMITING dulaglutide [From Trulicity] Adverse Reaction (Severe, Verified 10/20/24 12:39) Diarrhea empagliflozin [From Jardiance] Adverse Reaction (Intermediate, Verified 10/20/24 12:39) uti sulfamethoxazole [From BACTRIM] Adverse Reaction (Mild, Verified 10/20/24 12:39) NAUSEA & VOMITING lisinopril Allergy (Unknown, Uncoded 10/20/24 12:39) headaches Medication List - Last Reconciled 10/20/24 by Tammy Mccloud MD amlodipine 10 mg PO DAILY 90 days atorvastatin 40 mg PO BEDTIME 90 days blood sugar diagnostic (FreeStyle Lite Strips) 1 strip miscellaneous QID blood-glucose meter (FreeStyle Lite Meter kit) As directed buspirone 15 mg PO BID docusate sodium (Colace) 100 mg PO DAILY 30 days duloxetine 60 mg PO DAILY 90 days flash glucose scanning reader (FreeStyle Abdon 2 [place]) tid testing flash glucose sensor (FreeStyle Abdon 2 Sensor kit) USE TO MONITOR BLOOD SUGAR TWICE DAILY, CHANGE EVERY 14 DAYS. gabapentin 800 mg PO TID inhalational spacing device (Aerochamber Plus Z Stat spacer) As directed insulin degludec (Tresiba FlexTouch U-200 insulin) 36 units subcut DAILY insulin lispro 8 units twice daily subcutaneously 2 times a day; 30 days lancets (FreeStyle Lancets) Test blood sugar 3 times per day levothyroxine 175 mcg PO DAILY 90 days lidocaine 5% 1 patch topical DAILY PRN meclizine 25 mg PO BID PRN 10 days nicotine 1 patch transdermal DAILY nicotine (polacrilex) 4 mg buccal Q6H PRN omeprazole 20 mg PO DAILY 90 days quetiapine 50 mg PO BEDTIME 90 days tirzepatide (Mounjaro) 7.5 mg (0.5 mL) subcut QWEEK 28 days valsartan-hydrochlorothiazide 160-12.5 mg 1 tab PO DAILY zolpidem 5 mg PO BEDTIME PRN HPI Comments Details: 53-year-old female coming in today for follow up of history of thyroid cancer status post total thyroidectomy 10/29/[address] Violetta Lozada at [facility], with pathology showing multifocal micro PTC, with largest focus measuring 0.9 cm x 0.6 X 0.6 cm. No angioinvasion, no lymphatic invasion, no perineural invasion, negative margins, also noted to have lymphocytic thyroiditis and hyperplastic follicular nodules. AJCC stage I, pT1a NX. SINDHU initial low risk of recurrence, unclear whether she got radioactive iodine or not. currently SINDHU excellent response to therapy. Sees Philomena Alva APRN for DM in our office History of PTC in detail 02/28/2018: Thyroid ultrasound revealed 1.8 cm hypoechoic smoothly marginated right inferior thyroid nodule, additional 5 mm hypoechoic right inferior pole nodule. Left thyroid lobe contained 4 nodule including 9 mm left superior isthmus nodule, 1.5 cm heterogenous smoothly marginated midpole, 1.1 cm isoechoic smoothly marginated inferior pole and 1 cm isoechoic smoothly marginated inferior pole nodules. Also noted 0.5 cm prominent lymph node adjacent to the left thyroid lobe with normal ultrasound morphology and flow. 08/25/2018: FNA biopsy of the 9 mm left superior pole nodule was diagnostic of PTC. Cytology of the right inferior 1.8 cm nodule revealed atypia of undetermined significance. 10/29/2018: Status post total thyroidectomy with Dr. Violetta Lozada at [facility] with pathology showing multifocal micro PTC, with largest focus measuring 0.9 cm x 0.6 X 0.6 cm. No angioinvasion, no lymphatic invasion, no perineural invasion, negative margins, also noted to have lymphocytic thyroiditis and hyperplastic follicular nodules. AJCC stage I, pT1a NX. SINDHU initial low risk of recurrence Unclear whether she got radioactive iodine She remembers having a whole body scan , we sent multiple requests to [facility] to request for the whole-body scan but were unable to receive it. 07/23/2024: TSH low at 0.13, free T4 1.39, TG less than 0.1, TG antibody less than 1 07/30/2024 levothyroxine dose reduced to 175 mcg daily after she had TSH low at 0.13. 08/25/2024: TSH 0.30, free T4 1.05 09/08/2024: TSH 0.52, free T4 0.96 09/08/2024: Ultrasound of the neck shows normal-appearing lymph nodes No family history of thyroid cancer Interval history Reports difficulty swallowing for the past 3 years , reports choking sensation intermittently. Feels her voice has changes. Currently on levothyroxine 175 mcg daily Says adherent. good administration. No palpitations. no tremors. Reports chronic constipation. Lost 5 lbs on Mounjaro over 5 months. Physical exam General: sitting comfortably in no acute distress HEENT: normocephalic/atraumatic Neck: supple, symmetrical Cardiac: normal heart sounds Pulm: normal breath sounds B/L, no added breath sounds Abd: not distended, no tenderness Extremities: no edema, no signs of myxedema Laboratory Tests 07/16/18 11/25/18 04/02/19 07:40 11:58 08:58 Free T4 0.99 TSH Thyroglobulin <0.1 L <0.1 L Thyroglobulin Antibody 16 H 5 H 05/14/19 08/19/19 12/12/19 09:00 14:17 10:25 Free T4 0.97 0.64 L 0.82 TSH Thyroglobulin <0.1 L Thyroglobulin Antibody 4 H 09/13/20 01/14/21 04/18/21 08:48 06:26 09:32 Free T4 1.25 0.46 L 1.02 TSH 0.02 L 59.07 H 0.11 L Thyroglobulin Thyroglobulin Antibody 07/14/22 08/13/23 07/23/24 16:19 14:06 13:36 Free T4 1.42 < 0.42 L 1.39 TSH 0.04 L > 100.00 H 0.13 L Thyroglobulin <0.1 L Thyroglobulin Antibody <1 Laboratory Tests 08/25/24 09/08/24 16:43 11:39 TSH 0.30 L 0.52 Free T4 1.05 0.96 US THYROID CLINICAL INFORMATION: Status post total thyroidectomy in October 2018.. COMPARISON: None available. TECHNIQUE: Linear transducer he-scale and color Doppler examination with attention to the region of the thyroid. FINDINGS: No residual thyroid gland. No gross solid or cystic lesion at the surgical site. There are at least 7 mildly prominent less than 1.3 cm cervical lymph nodes in the upper neck at levels 1B, 2, 3 and 4. US/US soft tiss head and/or neck IMPRESSION: No residual or recurrent tumor. Nonspecific prominent lymph nodes.. [facility] Medical History Hypertensive retinopathy Diabetic retinopathy History of thyroid cancer Hypothyroid Uncontrolled diabetes mellitus with hyperglycemia Essential hypertension Hyperlipidemia Nicotine dependence, cigarettes, uncomplicated Sleep apnea Obesity (BMI 30-39.9) Insomnia Anxiety Depression Migraines B12 deficiency Vitamin D deficiency Hahn's palsy Sciatic leg pain Surgical History S/P thyroid biopsy History of thyroidectomy History of elbow surgery History of tubal ligation Family History Father HTN (hypertension) CVD (cardiovascular disease) Diabetes mellitus Mental health disorder Mother Diabetes mellitus Uterine cancer COPD (chronic obstructive pulmonary disease) Mental health disorder Maternal Grandmother Breast cancer Paternal Aunt Breast cancer Brother No problems noted. Sister Substance use disorder Mental health disorder Sister No problems noted. Sister No problems noted. Daughter No problems noted. Son No problems noted. Son No problems noted. Son No problems noted. Son No problems noted. Son No problems noted. Son No problems noted. Social History Household Members: Family Housing: Apartment Do you presently have visiting nurse or other home services: No Alcohol intake: former Patient Tobacco Use Status: Current everyday Tobacco user Tobacco use type: Cigarette Cigarettes Per Day: 10 Years Smoked: 20 e-Cigarette/Vaping Use: Never Used Second Hand Smoke Exposure: No service: No Current occupational status: disabled Current occupation: [employer] Cognitive needs: No Hearing needs: No Vision needs: Yes Physical Exam Vital Signs: BMI result Body Mass Index 41.8 Assessment & Plan Assessment & Plan (1) History of thyroid cancer: Comment: (Papillary Thyroid Carcinoma - dx 2019 - s/p thyroidectomy) Code(s): Z85.850 - Personal history of malignant neoplasm of thyroid Category: Medical Plan: 53-year-old female coming in today for follow up of history of thyroid cancer status post total thyroidectomy 10/29/[address] Violetta Lozada at [facility], with pathology showing multifocal micro PTC, with largest focus measuring 0.9 cm x 0.6 X 0.6 cm. No angioinvasion, no lymphatic invasion, no perineural invasion, negative margins, also noted to have lymphocytic thyroiditis and hyperplastic follicular nodules. AJCC stage I, pT1a NX. SINDHU initial low risk of recurrence, unclear whether she got radioactive iodine or not. currently SINDHU excellent response to therapy. Ultrasound of the neck from September 2024 shows no abnormal lymph nodes. Apparently she had a whole-body scan a few years ago, we requested multiple times at [facility] for records, but were unable to obtain.. Most recent labs from July 2024 showed undetectable non stimulated thyroglobulin, with negative TG antibodies. In the past she has also had some issues with being adherent to levothyroxine therapy but now reports good administration and adherence. Based on excellent response to therapy, TSH between 0.5-2. Currently on levothyroxine 175 mcg daily , most recent labs from September 2024, TSH within goal Plan: -continue levothyroxine 175 mcg daily -ordered ultrasound of the neck to be done in September 2025 prior to follow up -TSH, free T4, TG and TG antibodies to be done in September 2025 prior to follow up -follow up in September 2025 in about 1 year (2) Hypothyroid: Comment: (aquired - s/p thyroidectomy for papillary thyroid carcinoma - 2019) Code(s): E03.9 - Hypothyroidism, unspecified Category: Medical Qualifiers: Hypothyroidism type: acquired Qualified Code(s): E03.9 - Hypothyroidism, unspecified Plan: Based on excellent response to therapy TSH goal between 0.5-2. Most recent labs from September 2024 shows TSH is within goal. Plan: -continue levothyroxine 175 mcg daily -TSH, free T4 to be repeated in September 2025 Plan I spent 30 minutes in reviewing the record, seeing the patient and documenting in the medical record. Orders: Orders 2 Thyroid Stimulating Hormone 09/07/25 E03.9 - Hypothyroidism, unspecified, Z85.850 - Personal history of malignant neoplasm of thyroid Thyroglobulin 09/07/25 E03.9 - Hypothyroidism, unspecified, Z85.850 - Personal history of malignant neoplasm of thyroid Thyroglobulin Antibodies 09/07/25 E03.9 - Hypothyroidism, unspecified, Z85.850 - Personal history of malignant neoplasm of thyroid US soft tiss head and/or neck 09/07/25 E03.9 - Hypothyroidism, unspecified, Z85.850 - Personal history of malignant neoplasm of thyroid Thyroglobulin Tumor Marker 09/07/25 E03.9 - Hypothyroidism, unspecified, Z85.850 - Personal history of malignant neoplasm of thyroid Free T4 (Free Thyroxine) 09/07/25 E03.9 - Hypothyroidism, unspecified, Z85.850 - Personal history of malignant neoplasm of thyroid Medications: Refilled 2 levothyroxine 175 mcg PO DAILY 90 days 90 tabs 3RF Patient Instructions: Do blood work in beginning of September 2025, orders are already in place Do ultrasound of the thyroid beginning of September 2025, someone will call you to schedule this Follow up with me end september Coding Level of Care Code Est Pt Level 4 (04528) Complex EM visit Add On G2211 Diagnoses History of thyroid cancer Z85.850 Acquired hypothyroidism E03.9 Hypothyroidism type: acquired Time Spent (min) 30
[2024-10-20 12:38] VITALS: BP 142/84; PULSE 88; O2SAT 95; BMI 41.8
== END 2024-10-20 13:00 | disposition home or self-care (01) ==
LOC: HO.ENCR 12:34
PROVIDERS: PCP Nurse Practitioner Family; Visit Provider Student in an Organized Health Care Education/Training Program
DX: Z85.850 Personal history of malignant neoplasm of thyroid (principal); E03.9 Hypothyroidism, unspecified
CPT/HCPCS: 99214; G2211

== ENCOUNTER → 2024-10-20 12:33 | Outpatient (BNVA) | payer OTHER, SELFPAY | PROVIDERS: PCP Nurse Practitioner Family; Visit Provider Student in an Organized Health Care Education/Training Program | DX: E03.9 Hypothyroidism, unspecified (principal); Z85.850 Personal history of malignant neoplasm of thyroid | CPT/HCPCS: 99212 ==

== ENCOUNTER 2024-12-01 06:46 | Outpatient (AMB) | payer OTHER, SELFPAY ==
--- NOTE | 2024-12-01 07:43 | MHC.PC.OV ---
Intake Visit Reasons: follow up Allergies doxycycline (DOXYCYCLINE) Allergy (Severe, Verified 10/20/24 12:39) THROAT SWELLING clindamycin (CLINDAMYCIN) Allergy (Intermediate, Verified 10/20/24 12:39) CHEST PAIN Sulfa (Sulfonamide Antibiotics) Allergy (Unknown, Verified 10/20/24 12:39) makes her sick, vomit trimethoprim (From BACTRIM) Allergy (Unknown, Verified 10/20/24 12:39) NAUSEA & VOMITING dulaglutide (From Trulicity) Adverse Reaction (Severe, Verified 10/20/24 12:39) Diarrhea empagliflozin (From Jardiance) Adverse Reaction (Intermediate, Verified 10/20/24 12:39) uti sulfamethoxazole (From BACTRIM) Adverse Reaction (Mild, Verified 10/20/24 12:39) NAUSEA & VOMITING lisinopril Allergy (Unknown, Uncoded 10/20/24 12:39) headaches Tobacco use date assessed: 09/15/24 Dental Screening Dental Screen Date: 09/15/24 HPI follow up HPI Details History of Present Illness The patient is a 53-year-old female presenting for a generalized follow-up via telehealth. She reports her hemoglobin A1c levels are now in the 6s, indicating improved glycemic control. She is under the care of an automatic pilot mechanic for diabetes management and a collar padder blindstitch for hypertension/kidney health. The patient also sees an automatic pilot mechanic for thyroid management and reports overall improvement in her condition. However, she experiences dizziness, particularly when standing up or moving around, which may be related to orthostatic changes. She takes meclizine as needed, which provides some relief. The patient has a history of anxiety and is regularly seeing a psychiatrist and therapist. There is a consideration of an anxiety component contributing to her dizziness. Preventative care measures include a referral for a low-dose CT scan for lung cancer screening, which she has yet to complete due to communication issues with the program. Review of Systems - Cardiovascular: Denies chest pain, palpitations, or syncope. - Respiratory: Denies dyspnea, cough, or wheezing. - Gastrointestinal: Denies abdominal pain, blood in stool, constipation, or diarrhea. - Neurological: Reports dizziness, especially with positional changes. Plan The plan includes obtaining orthostatic vital signs to assess for any positional blood pressure changes contributing to the dizziness. The patient is encouraged to continue monitoring her blood glucose levels and maintain her current diabetes management regimen, as her A1c levels have shown improvement. She is advised to continue taking meclizine as needed for dizziness and to follow up with her psychiatrist and therapist for anxiety management. The patient is reminded to complete her low-dose CT scan for lung cancer screening and to resolve communication issues with the program. Additionally, she is encouraged to have routine laboratory tests performed to monitor her overall health status. Discussion Notes I discussed with the patient the importance of monitoring her blood glucose levels and maintaining her current diabetes management plan, as her A1c levels have improved. We talked about the potential orthostatic changes contributing to her dizziness and the need for orthostatic vital signs. I emphasized the necessity of completing her low-dose CT scan for lung cancer screening and resolving any communication issues with the program. We also reviewed the importance of continuing her psychiatric care for anxiety management. Patient Instructions - Monitor your blood sugar levels regularly and continue your diabetes medications as prescribed. - Take meclizine as needed for dizziness, send orthostats via the portal to me so i can look at them - Follow up with your psychiatrist and therapist for anxiety management. - Complete the low-dose CT scan for lung cancer screening and resolve any communication issues with the program. - Have routine lab tests done to monitor your health. [facility] Medical History Hypertensive retinopathy Diabetic retinopathy History of thyroid cancer Hypothyroid Uncontrolled diabetes mellitus with hyperglycemia Essential hypertension Hyperlipidemia Nicotine dependence, cigarettes, uncomplicated Sleep apnea Obesity (BMI 30-39.9) Insomnia Anxiety Depression Migraines B12 deficiency Vitamin D deficiency Hahn's palsy Sciatic leg pain Surgical History S/P thyroid biopsy History of thyroidectomy History of elbow surgery History of tubal ligation Family History Father HTN (hypertension) CVD (cardiovascular disease) Diabetes mellitus Mental health disorder Mother Diabetes mellitus Uterine cancer COPD (chronic obstructive pulmonary disease) Mental health disorder Maternal Grandmother Breast cancer Paternal Aunt Breast cancer Brother No problems noted. Sister Substance use disorder Mental health disorder Sister No problems noted. Sister No problems noted. Daughter No problems noted. Son No problems noted. Son No problems noted. Son No problems noted. Son No problems noted. Son No problems noted. Son No problems noted. Social History Household Members: Family Housing: Apartment Do you presently have visiting nurse or other home services: No Alcohol intake: former Patient Tobacco Use Status: Current everyday Tobacco user Tobacco use type: Cigarette Cigarettes Per Day: 10 Years Smoked: 20 Packs per year/per ci.00 e-Cigarette/Vaping Use: Never Used Second Hand Smoke Exposure: No service: No Current occupational status: disabled Current occupation: [employer] Cognitive needs: No Hearing needs: No Vision needs: Yes Questionnaire Thrive Questionnaire Date Thrive assessed: 06/07/24 I am a: Patient What is your living situation today?: I have a steady place to live Within the past 12 months, did the food you bought not last and you didn't have the money to get more?: Sometimes True Within the past 12 months, did you worry whether your food would run out before you got money to buy more?: Sometimes True Do you have trouble paying for medicines?: No Do you have trouble getting transportation to medical appointments?: No Do you have trouble paying your heating and electricity bill?: No Do you have trouble taking care of your child, family member or friend?: No Do you have trouble with day-to-day activities such as bathing, preparing meals, shopping, managing finances, etc.?: Yes Are you currently unemployed and looking for a job?: Yes Are you interested in more education?: No Please select the resources that you would like help with: Daily support Currently or been in a relationship where the following occur: No concerns reported THRIVE Score: 2 MILLIE-7 AMB Questionnaire MILLIE-7 Date MILLIE - 7 assessed: 09/15/24 Source: Developed by Drs. Jonathon Kenyon, Valeri Rios, Ulysses Gambino and colleagues, with an educational harrison from [employer]. Physical exam (Primary Care) Tobacco/Smoking Status: Tobacco use Status Tobacco use date assessed 09/15/24 12/01/24 07:44 Patient Tobacco Use Status Current everyday Tobacco 12/01/24 07:44 Tobacco use type Cigarette 12/01/24 07:44 e-Cigarette/Vaping Use Never Used 12/01/24 07:44 Thrive Assessment: Date of Thrive Assessment Date Thrive assessed 06/07/24 12/01/24 07:44 Currently or been in a relationship where the following occur: No concerns reported Telehealth Telehealth Telehealth Platform: [employer] Location of provider rendering services: practice address Location of patient: address on file Patient Identification confirmed using: Name, : Yes Telehealth method: video Patient verbally consented to treatment: Yes Patient verbally consented to billing insurance company: Yes Patient informed of any privacy concerns related to visit: Yes Minutes spent on Phone/Video with Pt.: 15 Coding Level of Care Code Tele Est Pt Level 3 (22960) Diagnoses Acquired hypothyroidism E03.9 Hypothyroidism type: acquired Diabetes E11.9 Anxiety F41.9 Dizziness R42 Assessment & Plan Assessment & Plan (1) Hypothyroid: Comment: (aquired - s/p thyroidectomy for papillary thyroid carcinoma - 2019) Code(s): E03.9 - Hypothyroidism, unspecified Category: Medical Qualifiers: Hypothyroidism type: acquired Qualified Code(s): E03.9 - Hypothyroidism, unspecified (2) Diabetes: Code(s): E11.9 - Type 2 diabetes mellitus without complications Category: Medical (3) Anxiety: Code(s): F41.9 - Anxiety disorder, unspecified Category: Medical (4) Dizziness: Code(s): R42 - Dizziness and giddiness Category: Medical Plan . Medications: Refilled meclizine 25 mg PO BID PRN 20 tabs 0RF dizziness 10 days
== END 2024-12-01 08:11 | disposition home or self-care (01) ==
LOC: HO.HMCC 06:47
PROVIDERS: PCP Nurse Practitioner Family; Visit Provider Nurse Practitioner Family
DX: E03.9 Hypothyroidism, unspecified (principal); E11.9 Type 2 diabetes mellitus without complications; F41.9 Anxiety disorder, unspecified; R42 Dizziness and giddiness

== ENCOUNTER 2024-12-12 13:12 | Outpatient (REF) | payer OTHER, SELFPAY | END 2024-12-12 13:13 | disposition home or self-care (01) | LOC: HO.MAMMO 13:12 | PROVIDERS: Visit Provider Nurse Practitioner Family | DX: Z12.31 Encounter for screening mammogram for malignant neoplasm of breast (principal) | CPT/HCPCS: 77063; 77067 ==

== ENCOUNTER → 2024-12-12 13:15 | Outpatient (BNV) | payer OTHER, SELFPAY | PROVIDERS: Visit Provider Internal Medicine | DX: Z12.31 Encounter for screening mammogram for malignant neoplasm of breast (principal) | CPT/HCPCS: 77063; 77067 ==

== ENCOUNTER 2025-01-07 11:23 | Outpatient (AMB) | payer OTHER, SELFPAY ==
[2025-01-07 11:26] VITALS: BP 132/72; BMI 38.8
--- NOTE | 2025-01-07 11:26 | HO.NEPHOV ---
Vital Signs 01/07/25 11:26 01/07/25 11:38 Height 5 ft 5 in Weight 233 lb BMI 38.8 BP 132/72 120/60 Blood Pressure Location Lt brachial Rt brachial Position Sitting Sitting Intake Visit Reasons: 3 mnts/ LVM Criminal Records Technician Required: No Accompanied by: Grand Child Allergies doxycycline (DOXYCYCLINE) Allergy (Severe, Verified 01/07/25 11:28) THROAT SWELLING clindamycin (CLINDAMYCIN) Allergy (Intermediate, Verified 01/07/25 11:28) CHEST PAIN Sulfa (Sulfonamide Antibiotics) Allergy (Unknown, Verified 01/07/25 11:28) makes her sick, vomit trimethoprim (From BACTRIM) Allergy (Unknown, Verified 01/07/25 11:28) NAUSEA & VOMITING dulaglutide (From Trulicity) Adverse Reaction (Severe, Verified 01/07/25 11:28) Diarrhea empagliflozin (From Jardiance) Adverse Reaction (Intermediate, Verified 01/07/25 11:28) uti sulfamethoxazole (From BACTRIM) Adverse Reaction (Mild, Verified 01/07/25 11:28) NAUSEA & VOMITING lisinopril Allergy (Unknown, Uncoded 10/20/24 12:39) headaches Medication List - Last Reconciled 01/07/25 by Con Mendez MD amlodipine 10 mg PO DAILY 90 days atorvastatin 40 mg PO BEDTIME blood sugar diagnostic (FreeStyle Lite Strips) 1 strip miscellaneous QID blood-glucose meter (FreeStyle Lite Meter kit) As directed buspirone 15 mg PO BID docusate sodium (Colace) 100 mg PO DAILY 30 days duloxetine 60 mg PO DAILY 90 days flash glucose scanning reader (FreeStyle [place] 2 [place]) tid testing flash glucose sensor (FreeStyle Abdon 2 Sensor kit) USE TO MONITOR BLOOD SUGAR TWICE DAILY, CHANGE EVERY 14 DAYS. gabapentin 800 mg PO TID inhalational spacing device (Aerochamber Plus Z Stat spacer) As directed insulin degludec (Tresiba FlexTouch U-200 insulin) 36 units subcut DAILY insulin lispro 8 units twice daily subcutaneously 2 times a day; 30 days lancets (FreeStyle Lancets) Test blood sugar 3 times per day levothyroxine 175 mcg PO DAILY 90 days lidocaine 5% 1 patch topical DAILY PRN meclizine 25 mg PO BID PRN 10 days nicotine 1 patch transdermal DAILY nicotine (polacrilex) 4 mg buccal Q6H PRN nicotine (polacrilex) 4 mg buccal Q4H PRN 30 days omeprazole 20 mg PO DAILY quetiapine 50 mg PO BEDTIME 90 days tirzepatide (Mounjaro) 7.5 mg (0.5 mL) subcut QWEEK 28 days valsartan-hydrochlorothiazide 160-12.5 mg 1 tab PO DAILY zolpidem 5 mg PO BEDTIME PRN HPI Comments Details: . Tammy is a pleasant 53-year-old woman with a history of hypertension since 1999. Blood sugar has been suboptimally controlled. She has a history of hypertension as well. Her baseline creatinine used to be around 0.8 mg/dL which has gradually increased to 1.02 mg/dL. She was recently found to have proteinuria. She also had microscopic hematuria. She was seen by Urology and underwent cystoscopy which has essentially unremarkable. Diabetes mellitus is complicated by diabetic retinopathy. She was significant obesity. She was recently prescribed Victoza and she is yet to start this. 04/16/24;Doing better ;Not taking Victoza ;Waiting to start Mounjaro ;Did not undergo blood and urine test 08/06/2024. Recently he had an episode of abdominal colic and subsequently had a kidney stone. This was complicated by UTI. She passed the stone spontaneously. She was not lost any weight. 10/08/24: Event s, noted A1C is better - Maunjaro increased 7.5 on 10/03/24- yet to start 01/07/25 The patient is a 54-year-old female presenting for follow up for hypertension The patient has a history of hypertension, which has been managed with medication. Recently, she reported experiencing lightheadedness, particularly when standing for extended periods, which is likely due to her blood pressure being too low as a result of weight loss. The patient was previously on valsartan hydrochlorothiazide 160/12.5 mg, which has been adjusted to valsartan 80 mg to address the lightheadedness. The patient has successfully lost 25 pounds since her last visit, reducing her weight from 255 to 233 pounds. This weight loss has contributed to improved blood pressure control. The patient also reported experiencing a sensation of throat tightness when her blood pressure is low, which may be associated with her lightheadedness. The patient is actively working on smoking cessation and is using nicotine gum and patches to aid in quitting smoking. [facility] Medical History Hypertensive retinopathy Diabetic retinopathy History of thyroid cancer Hypothyroid Uncontrolled diabetes mellitus with hyperglycemia Essential hypertension Hyperlipidemia Nicotine dependence, cigarettes, uncomplicated Sleep apnea Obesity (BMI 30-39.9) Insomnia Anxiety Depression Migraines B12 deficiency Vitamin D deficiency Hahn's palsy Sciatic leg pain Surgical History S/P thyroid biopsy History of thyroidectomy History of elbow surgery History of tubal ligation Family History Father HTN (hypertension) CVD (cardiovascular disease) Diabetes mellitus Mental health disorder Mother Diabetes mellitus Uterine cancer COPD (chronic obstructive pulmonary disease) Mental health disorder Maternal Grandmother Breast cancer Paternal Aunt Breast cancer Brother No problems noted. Sister Substance use disorder Mental health disorder Sister No problems noted. Sister No problems noted. Daughter No problems noted. Son No problems noted. Son No problems noted. Son No problems noted. Son No problems noted. Son No problems noted. Son No problems noted. Social History Household Members: Family Housing: Apartment Do you presently have visiting nurse or other home services: No Alcohol intake: former Patient Tobacco Use Status: Current everyday Tobacco user Tobacco use type: Cigarette Cigarettes Per Day: 10 Years Smoked: 20 e-Cigarette/Vaping Use: Never Used Second Hand Smoke Exposure: No service: No Current occupational status: disabled Current occupation: [email or web address] Cognitive needs: No Hearing needs: No Vision needs: Yes Physical Exam Vital Signs: Last Vital Signs BP 120/60 01/07/25 11:38 BMI result Body Mass Index 38.8 Const General: comfortable; No acute distress Nutritional Appearance: obese Orientation/consciousness: patient oriented x3 Eyes General: appearance normal, both eyes and all related structures Visual Spencer: normal visual spencer by confrontation Neck Neck: Yes supple and Yes no JVD Resp Effort & Inspection: normal respiratory effort and respiratory effort not decreased Cardio Palpation: no palpable S3 and no palpable S4 Heart sounds: no rubs GI Inspection: Yes normal to inspection Palpation (GI): Soft to palpation Percussion: Yes normal to percussion Auscultation: normal bowel sounds General: Yes no CVA tenderness Back/Spine/Pelvis Back: no CVA tenderness Skin General skin exam: no petechiae and no purpura Neuro General: patient oriented x3 and no focal motor deficits Extrem General: No clubbing and No edema Results Reviewed Results Reviewed: December 2023 RIGHT KIDNEY: 14.4 x 4.1 x 5.1 cm (SAG x AP x TRV). The kidney is normal in size and echogenicity. There is a lobulated contour. Renal cortical thickness is normal. No calculi or focal parenchymal lesions. No hydronephrosis. LEFT KIDNEY: 13.5 x 5.2 x 6.3 cm (SAG x AP x TRV). The kidney is normal in size and echogenicity. There is a lobulated contour. Renal cortical thickness is normal. No calculi or focal parenchymal lesions. No hydronephrosis. Cystoscopy : Negative Nephrology Results: Renal US 12/10/23 Assessment & Plan Assessment & Plan (1) Essential hypertension: Code(s): I10 - Essential (primary) hypertension Category: Medical Plan 53-year-old woman with longstanding diabetes mellitus and hypertension with proteinuria. Given the history of diabetic retinopathy she likely has underlying diabetic nephropathy to explain the proteinuria. Nondiabetic causes seem less likely at this point. She has mild CKD most likely due to diabetic nephropathy. The blood pressure is better controlled and rather low with symptoms Recommendation Keep amlodipine 10 mg. DC valsartan HCTZ 160/12.5 due to lightheadedness Restart with Valsartan 80 mg daily and watch BP Continue with weight loss She should stay on low-sodium diet. Discussed importance of tight control blood sugar to maintain A1c less than 7%. . Orders: Orders Basic Metabolic Panel 4 Weeks I10 - Essential (primary) hypertension Medications: New valsartan 80 mg PO DAILY 30 tabs 1RF Discontinued valsartan-hydrochlorothiazide 160-12.5 mg Discontinued Reason: Doctor's Order 1 tab PO DAILY 60 tabs 0RF Coding Level of Care Code Est Pt Level 4 (77929) Diagnoses Essential hypertension I10
[2025-01-07 11:38] VITALS: BP 120/60
== END 2025-01-07 11:42 | disposition home or self-care (01) ==
LOC: HO.HKAS 11:23
PROVIDERS: PCP Nurse Practitioner Family; Visit Provider Internal Medicine Hypertension Specialist
DX: I10 Essential (primary) hypertension (principal)
CPT/HCPCS: 99214

== ENCOUNTER → 2025-01-07 11:23 | Outpatient (BNVA) | payer OTHER, SELFPAY | PROVIDERS: PCP Nurse Practitioner Family; Visit Provider Internal Medicine Hypertension Specialist | DX: E11.65 Type 2 diabetes mellitus with hyperglycemia (principal); E11.319 Type 2 diabetes mellitus with unspecified diabetic retinopathy without macular edema; I10 Essential (primary) hypertension; E53.8 Deficiency of other specified B group vitamins; F17.210 Nicotine dependence, cigarettes, uncomplicated | CPT/HCPCS: 99212 ==

== ENCOUNTER 2025-01-07 11:46 | Outpatient (REF) | payer OTHER, SELFPAY ==
[2025-01-07 18:21] LABS: MANUAL DIFF FLAG NO
[2025-01-07 18:23] LABS: Hematocrit 40.4 % (37.0-47.0); Hemoglobin 13.8 g/dl (12.0-16.0); Imm Gran Abs Auto 0.02 X10*3/uL (0.00-0.03); Imm Gran Pct Auto 0.3 % (0.0-0.4); Lymphocytes Absolute Auto 3.8 X10*3/uL (1.2-4.9); Mean Corpuscular HGB Conc 34.2 g/dl (31.0-35.0); Mean Corpuscular Hemoglobin 29.6 pg (27.0-33.0); Mean Corpuscular Volume 86.5 fL (80.0-98.0); NRBC Abs Auto 0.000 X10*3/uL (0.0-0.012); NRBC Pct Auto 0.0 /100WBC (0.0-0.2); Platelet Count 250 X10*3/uL (160-400); Red Blood Count 4.67 X10*6/uL (4.20-5.50); White Blood Count 8.0 X10*3/uL (4.8-10.8)
[2025-01-07 18:36] LABS: Appearance Urine Cloudy; Glucose Urine UA Negative (Negative); PH 5.0 (5.0-9.0); Specific Gravity - Urine 1.020 (1.005-1.025); UMIC TRIGGER UACC YES
[2025-01-07 18:56] LABS: Alanine Aminotransferase 14 U/L (0-31); Albumin Level 4.0 g/dL (3.5-5.0); Alkaline Phosphatase 77 U/L (39-117); Anion Gap 12 (12-20); Aspartate Amino Transferase 36 U/L (5-31); Blood Urea Nitrogen 25 mg/dL (9-16); Calcium 8.9 mg/dL (8.4-10.2); Carbon Dioxide 28 mmol/L (22-29); Chloride 102 mmol/L (96-108); Cholesterol 111 mg/dL (<200); Estimated Glomerular Filt Rate 53; HDL Cholesterol 41 mg/dL (>40); Potassium 4.4 mmol/L (3.3-5.1); Sodium 138 mmol/L (135-145); Total Protein 7.6 g/dL (6.5-8.0); Triglycerides 130 mg/dL (<150)
[2025-01-07 19:03] LABS: UACC Culture Trigger YES
[2025-01-07 19:13] LABS: Microalbum/Creatinine Ratio Ur 274.9 ug/mg cr (<30)
[2025-01-07 19:18] LABS: Folate 5.3 ng/mL (> or = 4.0); Vitamin B12 473 pg/mL (200-900)
[2025-01-07 20:36] LABS: Free T4 (Free Thyroxine) 1.37 ng/dL (0.71-1.85)
== END 2025-01-07 11:47 | disposition home or self-care (01) ==
LOC: HO.HKASLDS 11:46
PROVIDERS: Visit Provider Nurse Practitioner Family
DX: E11.65 Type 2 diabetes mellitus with hyperglycemia (principal); E53.8 Deficiency of other specified B group vitamins; F17.210 Nicotine dependence, cigarettes, uncomplicated
CPT/HCPCS: 36415; 80053; 80061; 81001; 82043; 82570; 82607; 82746; 84439; 84443; 85025; 87086

== ENCOUNTER 2025-01-23 09:49 | Outpatient (AMB) | payer OTHER, SELFPAY ==
--- NOTE | 2025-01-23 07:47 | MHC.OFFVIS ---
Intake Visit Reasons: Current Smoker Allergies doxycycline (DOXYCYCLINE) Allergy (Severe, Verified 01/07/25 11:28) THROAT SWELLING clindamycin (CLINDAMYCIN) Allergy (Intermediate, Verified 01/07/25 11:28) CHEST PAIN Sulfa (Sulfonamide Antibiotics) Allergy (Unknown, Verified 01/07/25 11:28) makes her sick, vomit trimethoprim (From BACTRIM) Allergy (Unknown, Verified 01/07/25 11:28) NAUSEA & VOMITING dulaglutide (From Trulicity) Adverse Reaction (Severe, Verified 01/07/25 11:28) Diarrhea empagliflozin (From Jardiance) Adverse Reaction (Intermediate, Verified 01/07/25 11:28) uti sulfamethoxazole (From BACTRIM) Adverse Reaction (Mild, Verified 01/07/25 11:28) NAUSEA & VOMITING lisinopril Allergy (Unknown, Uncoded 10/20/24 12:39) headaches HPI HPI Current Smoker: Details: Initial visit for this 54yo smoker with a 35PYH. Patient started smoking at age 16 for 38 years at 1ppd. . Denies marijuana use. Denies second hand smoke exposure. Denies exposure to chemicals or substances like asbestos. . Denies known family history of lung cancer. Personal history of Papillary Thyroid Carcinoma - dx 2019 - s/p thyroidectomy Denies chest CT in last year. . Denies recent travel outside the [place]. Denies recent respiratory illness or recent hospitalization for respiratory issues. Reports history testing positive for COVID. Admits receiving COVID Vaccine. . Reports difficulty with swallowing and hoarseness. She has never had endoscopy. Denies fever, chills, new/worsening cough, hemoptysis. Denies significant chest pain, significant dyspnea or unintentional weight loss. Patient Lung Cancer Screening Questionnaire reviewed with patient by provider. . Shared Decision Making Completed. Patient meets criteria. Discussed in detail with patient, the risk vs benefit of LDCT screening. Patient consents to proceed with scan. Discussed smoking cessation. She has tried gum and medications. She quit for 6 months at one time but restarted due to stress. She is hoping this test will help to push her to quit again. [facility] Medical History (Updated 01/23/25 @ 10:19 by Paulina Torres PA-C) History of thyroid cancer Hypothyroid Uncontrolled diabetes mellitus with hyperglycemia Diabetic retinopathy Hypertensive retinopathy Essential hypertension Hyperlipidemia Nicotine dependence, cigarettes, uncomplicated Sleep apnea Obesity (BMI 30-39.9) Insomnia Anxiety Depression Migraines B12 deficiency Vitamin D deficiency Hahn's palsy Sciatic leg pain Surgical History (Updated 01/23/25 @ 10:05 by Paulina Torres PA-C) S/P thyroid biopsy History of thyroidectomy History of elbow surgery History of tubal ligation Family History Father HTN (hypertension) CVD (cardiovascular disease) Diabetes mellitus Mental health disorder Mother Diabetes mellitus Uterine cancer COPD (chronic obstructive pulmonary disease) Mental health disorder Maternal Grandmother Breast cancer Paternal Aunt Breast cancer Brother No problems noted. Sister Substance use disorder Mental health disorder Sister No problems noted. Sister No problems noted. Daughter No problems noted. Son No problems noted. Son No problems noted. Son No problems noted. Son No problems noted. Son No problems noted. Son No problems noted. Social History (Updated 01/23/25 @ 10:19 by Paulina Torres PA-C) Household Members: Family Housing: Apartment Do you presently have visiting nurse or other home services: No Alcohol intake: current Alcohol intake frequency: holidays/special occasions only Patient Tobacco Use Status: Current everyday Tobacco user Tobacco use type: Cigarette Cigarettes Per Day: 20 Years Smoked: (onset 16yo, 1ppd x 38yrs, 35pyh) e-Cigarette/Vaping Use: Never Used Second Hand Smoke Exposure: No service: No Current occupational status: disabled Current occupation: [employer] Cognitive needs: No Hearing needs: No Vision needs: Yes Assessment & Plan Assessment & Plan (1) Nicotine dependence, cigarettes, uncomplicated: Comment: (current smoker - onset 16yo, 1ppd x 38yrs, 35pyh) Code(s): F17.210 - Nicotine dependence, cigarettes, uncomplicated Category: Medical Plan: - SDM visit completed today in office. - Patient meets criteria for LDCT for lung cancer screening purposes and is asymptomatic. - Smoking cessation counseling offered. Patients can always call [phone]. - Will arrange for a LDCT scan of the chest for screening purposes at [facility]. - Risks, benefits, and alternatives were discussed in detail and the patient agrees to proceed. - Risks discussed include but are not limited to: radiation exposure, anxiety during testing and while awaiting results, false negatives, false positives and possibility of additional intervention such as further imaging or surgical procedures for benign disease. - Benefits are obviously detection of lung cancer at an early stage which can lead to improved outcomes. - Discussed the importance of screening program compliance with adherence to yearly LDCT scan as scheduled - or sooner interval scans for personalized screening regimen. - Discussed follow up plan. Our office will send a letter discussing results and if needed set up phone call and office visit based on CT findings. - Patient educated on results categorization and the management decisions for suspicious findings potentially found on the screening LDCT scan. Any patient with a Lung RADS score of 3 or 4 will be reviewed by a multidisciplinary team at [facility] to form a plan of action in regards to scan findings. - If further work up is warranted for a suspicious lung finding this will be followed by the Lung Cancer Screening program in conjunction with the Thoracic Surgery Department at [facility]. - A copy of the office note and LDCT will be sent to the patient's PCP - as well as documentation on any associated further plans of care. - Incidental findings on LDCT are the PCP's responsibility. These findings are indicated with an S finding on the LDCT Assessment. A note discussing the findings will be sent to the PCP who is then responsible for further management. - All questions answered.? Plan Of Note For PCP: patient complains of trouble swallowing food and pills, feels like a lump in throat. She also notes hoarseness. Advised she discuss with PCP referral to GI for endoscopy for further assessment. Coding Level of Care Code Lung Cancer Screening [id number] Diagnoses Nicotine dependence, cigarettes, uncomplicated F17.210
== END 2025-01-23 10:38 | disposition home or self-care (01) ==
LOC: HO.HPS 09:50
PROVIDERS: PCP Nurse Practitioner Family; Referring Provider Nurse Practitioner Family; Visit Provider Physician Assistant Medical
DX: F17.210 Nicotine dependence, cigarettes, uncomplicated (principal)
CPT/HCPCS: G0296

== ENCOUNTER 2025-01-23 10:16 | Outpatient (REF) | payer OTHER, SELFPAY ==
--- NOTE | ~2025-01-23 | CT_ITS ---
CLINICAL HISTORY: F17.210 - Nicotine dependence, cigarettes, uncomplicated CT lung cancer screening (LDCT) Comparison: Chest CT from 08/02/2023 Technique: Axial CT images of the chest using low-dose technique. Referring provider counseled the patient on shared decision-making for LDCT screening. Additional counseling was provided on smoking cessation. Effective radiation dose total: DLP 90.8 mGycm, CTDIvol 2.7 mGy. Findings: Lung: No significant change in 4 mm pulmonary nodule in the left upper lobe (imaged or of series 4). No new pulmonary nodule mm or larger. Mild emphysematous changes. Coronary artery calcifications: None Limited upper abdomen: Imaged spleen is at the upper limits of normal. Other: Mild/minimal vertebral height losses appear old/chronic. Bridging osteophytes and facet arthropathy multifocal. Degenerative changes include imaged spine, with gas phenomenon. Impression: Category 2: Benign appearance or behavior, continue annual screening This document has been electronically signed by: Lucas Da Silva MD on 01/24/2025 19:18:28
== END 2025-01-23 10:17 | disposition home or self-care (01) ==
LOC: HO.CT 10:16
PROVIDERS: PCP Nurse Practitioner Family; Visit Provider Physician Assistant Medical
DX: Z12.2 Encounter for screening for malignant neoplasm of respiratory organs (principal); F17.210 Nicotine dependence, cigarettes, uncomplicated
CPT/HCPCS: 71271; G0296

== ENCOUNTER → 2025-01-23 10:19 | Outpatient (BNV) | payer OTHER, SELFPAY | PROVIDERS: PCP Nurse Practitioner Family; Visit Provider Radiology Neuroradiology | DX: F17.210 Nicotine dependence, cigarettes, uncomplicated (principal) | CPT/HCPCS: 71271 ==

== ENCOUNTER 2025-01-24 17:16 | Emergency (ER) | payer OTHER, SELFPAY ==
--- NOTE | ~2025-01-24 | CT_ITS ---
CLINICAL HISTORY: Right flank pain, s p fall, renal colic? CT abdomen and pelvis without contrast Comparison: CT abdomen and pelvis 09/26/2022 and 06/27/2024. Findings: No acute findings within visualized lung bases. Liver, spleen, adrenal glands, pancreas, gallbladder are unremarkable. Stable lobulated appearance of both kidneys. No definite obstructing renal, ureteral or bladder calculi. No hydronephrosis. Mild bilateral perinephric fat stranding, similar to prior exam. No free air or free fluid. [id number] circumferential bladder wall thickening. Anteverted uterus. Mildly calcified but otherwise nonaneurysmal abdominal aorta and iliofemoral vessels. Unremarkable stomach. Normal caliber small bowel. Colon is unremarkable. No acute appendicitis. No hernia. Similar number, size and distribution of scattered shotty amy hepatis and retroperitoneal lymph nodes. No acute osseous abnormality. No lytic or sclerotic osseous lesions. No acute fracture. Impression: 1. No acute findings identified in the abdomen or pelvis within limitation of this noncontrast exam. 2. Specifically no obstructing renal, ureteral or bladder calculi. 3. Chronic/nonacute findings as above. This document has been electronically signed by: Octavio Mackey MD on 01/24/2025 20:40:42
[2025-01-24 17:18] VITALS: BP 136/79; PULSE 101; RESP 20; TEMP 36.4; O2SAT 97; BMI 38.8
--- NOTE | 2025-01-24 17:20 | ED.GENADULT ---
HPI - General Adult General Chief complaint: Back Pain/Injury Stated complaint: pain rt side back to front/fell last sunday Time Seen by Provider: 01/24/25 18:44 Source: patient Mode of arrival: ambulatory Limitations: no limitations History of Present Illness ED Provider: Dr. Iglesias HPI narrative: This is a 54-year-old female history of hypertension, hypothyroidism, nephrolithiasis presented hospital today for right flank pain. Patient stated that she fell earlier this week. However she did not have the right flank pain however 3 days ago she began to have intermittent right flank pain does colicky in nature. She thinks she may have a kidney stone. She had a kidney stone in the right side before in the past with similar sensation. She has described as the right low back tenderness that radiates to the front of her suprapubic area. Denies any hematuria denies any fever denies any dysuria. No other injuries from the fall. Related Data Home Medications ?Medication ?Instructions ?Recorded ?Confirmed buspirone 15 mg tablet 15 mg PO BID 08/06/24 01/07/25 zolpidem 5 mg tablet 5 mg PO BEDTIME PRN 08/25/24 01/07/25 insulin degludec 200 unit/mL (3 36 unit subcut DAILY 10/03/24 01/07/25 mL) subcutaneous pen (Tresiba FlexTouch U-200 insulin) Previous Rx's ?Medication ?Instructions ?Recorded flash glucose scanning reader #1 ea 01/05/22 (FreeStyle Abdon 2 [place]) inhalational spacing device #1 ea 04/29/22 (Aerochamber Plus Z Stat spacer) blood sugar diagnostic (FreeStyle 1 strip miscellaneous QID #300 01/29/24 Lite Strips) strips blood-glucose meter (FreeStyle #1 ea 01/29/24 Lite Meter kit) lancets 28 gauge (FreeStyle #300 ea 01/29/24 Lancets) lidocaine 5 % topical patch 1 patch topical DAILY PRN pain #15 03/12/24 ea duloxetine 60 mg capsule,delayed 60 mg PO DAILY 90 days #90 caps 06/06/24 release quetiapine 50 mg tablet 50 mg PO BEDTIME 90 days #90 tabs 06/06/24 insulin lispro 200 unit/mL (3 mL) See Rx Instructions subcut BID 30 06/25/24 subcutaneous pen days #6 mL nicotine (polacrilex) 4 mg buccal 4 mg buccal Q6H PRN nicotine 09/15/24 lozenge cravings #108 ea nicotine 21 mg/24 hr daily 1 patch transdermal DAILY #28 ea 09/15/24 transdermal patch amlodipine 10 mg tablet 10 mg PO DAILY 90 days #90 tabs 09/25/24 docusate sodium 100 mg capsule 100 mg PO DAILY 30 days #30 caps 10/03/24 (Colace) tirzepatide 7.5 mg/0.5 mL 7.5 mg (0.5 mL) subcut QWEEK 28 10/15/24 subcutaneous pen injector days #2 mL (Mounjaro) atorvastatin 40 mg tablet 40 mg PO BEDTIME #90 tabs 11/14/24 flash glucose sensor (FreeStyle #6 kits 11/14/24 Abdon 2 Sensor kit) omeprazole 20 mg capsule,delayed 20 mg PO DAILY #90 caps 11/14/24 release meclizine 25 mg tablet 25 mg PO BID PRN dizziness 10 days 12/01/24 #20 tabs nicotine (polacrilex) 4 mg gum 4 mg buccal Q4H PRN nicotine 01/04/25 cravings 30 days #100 ea valsartan 80 mg tablet 80 mg PO DAILY #30 tabs 01/07/25 gabapentin 800 mg tablet 800 mg PO TID #90 tabs 01/12/25 levothyroxine 150 mcg tablet 150 mcg PO DAILY #90 tabs 01/12/25 (Synthroid) cefpodoxime 200 mg tablet 200 mg PO BID 10 days #20 tabs 01/24/25 lidocaine 4 % topical patch 1 patch topical DAILY PRN pain #10 01/24/25 ea Allergies Allergy/AdvReac Type Severity Reaction Status Date / Time doxycycline (DOXYCYCLINE) Allergy Severe THROAT Verified 01/24/25 17:19 SWELLING clindamycin (CLINDAMYCIN) Allergy Intermediate CHEST PAIN Verified 01/24/25 17:19 Sulfa (Sulfonamide Allergy Unknown makes her Verified 01/24/25 17:19 Antibiotics) sick, vomit trimethoprim (From BACTRIM) Allergy Unknown NAUSEA & Verified 01/24/25 17:19 VOMITING dulaglutide (From Trulicity) AdvReac Severe Diarrhea Verified 01/24/25 17:19 empagliflozin (From AdvReac Intermediate uti Verified 01/24/25 17:19 Jardiance) sulfamethoxazole (From AdvReac Mild NAUSEA & Verified 01/24/25 17:19 BACTRIM) VOMITING lisinopril Allergy Unknown headaches Uncoded 01/24/25 17:19 Review of Systems Review of Systems: Pertinent review of systems as mentioned in HPI. All other system otherwise negative. [facility] Past Medical History [facility] Narrative: Medical history as mentioned in HPI Medical History (Updated 01/24/25 @ 22:00 by Tova Iglesias DO) History of thyroid cancer Hypothyroid Uncontrolled diabetes mellitus with hyperglycemia Diabetic retinopathy Hypertensive retinopathy Essential hypertension Hyperlipidemia Nicotine dependence, cigarettes, uncomplicated Sleep apnea Obesity (BMI 30-39.9) Insomnia Anxiety Depression Migraines B12 deficiency Vitamin D deficiency Hahn's palsy Sciatic leg pain Surgical History (Updated 01/23/25 @ 10:05 by Paulina Torres PA-C) S/P thyroid biopsy History of thyroidectomy History of elbow surgery History of tubal ligation Family History Family History Father HTN (hypertension) CVD (cardiovascular disease) Diabetes mellitus Mental health disorder Mother Diabetes mellitus Uterine cancer COPD (chronic obstructive pulmonary disease) Mental health disorder Maternal Grandmother Breast cancer Paternal Aunt Breast cancer Brother No problems noted. Sister Substance use disorder Mental health disorder Sister No problems noted. Sister No problems noted. Daughter No problems noted. Son No problems noted. Son No problems noted. Son No problems noted. Son No problems noted. Son No problems noted. Son No problems noted. Social History Social History (Updated 01/23/25 @ 10:19 by Paulina Torres PA-C) Household Members: Family Housing: Apartment Do you presently have visiting nurse or other home services: No Alcohol intake: current Alcohol intake frequency: holidays/special occasions only Patient Tobacco Use Status: Current everyday Tobacco user Tobacco use type: Cigarette Cigarettes Per Day: 20 Years Smoked: (onset 16yo, 1ppd x 38yrs, 35pyh) Smoked in Last 30 Days: No e-Cigarette/Vaping Use: Never Used Second Hand Smoke Exposure: No Use of substances other than those prescribed or required for medical reasons: No Advance Directives: No Advance Directives Information Provided: No Patient : No service: No Current occupational status: disabled Current occupation: [email or web address] Cognitive needs: No Hearing needs: No Vision needs: Yes Physical Exam ED Exam Exam: General: Pleasant, no distress, interacting appropriately Head: Normacephalic, atraumatic ENT: oral mucosa moist, neck supple, no tracheal deviation Cardiovascular: regular rate, regular rhythm, no murmurs, rubbing, gallops Respiratory: CTAB, no wheeze, rales, rhonchi, no chest wall tenderness Gastrointestinal: Soft, non distended, non tender, non guarding, no bruising on the right flank Extremities: No limb pain or swelling, no calf tenderness, moving all 4 extremities full range of motion Neurological: Awake and alert, no facial droop noted Skin: Warm and dry Psychiatric: Appropriate mood and thoughts Vital Signs: Vital Signs - 24 hr 01/24/25 17:18 01/24/25 19:10 Temperature 97.6 F 98.5 F Pulse Rate 101 H 90 Respiratory Rate 20 16 Blood Pressure 136/79 137/76 Pulse Oximetry 97 96 Oxygen Delivery Method Room Air Room Air BMI result Body Mass Index 38.8 Course Course Course Narrative: This is a Rapid Medical Examination (RME) performed by Billy Zayas PA-C in triage. Full HPI, ROS, assessment and treatment plan per primary provider in the Main ED. Hx: 54 yo F here for eval of right flank pain rad to right abd with assoc n/v x2-3 days. reports fall 1 week ago, felt fine after until a few days ago. concerned for possible kidney stone as she has a hx. no urinary sx. Plan: labs UA Medications Administered Discontinued Medications Generic Name Dose Route Start Last Admin Trade Name Freq PRN Reason Stop Dose Admin Sodium Chloride 1,000 mls @ 999 mls/hr 01/24/25 19:45 01/24/25 20:01 Ns IV 01/24/25 20:45 999 mls/hr .Q1H1M BE Administration Ketorolac Tromethamine 15 mg 01/24/25 19:33 01/24/25 19:54 Ketorolac Tromethamine 15 Mg/Ml Vial IVPUSH 01/24/25 19:34 15 mg ONCE ONE Administration Ondansetron HCl 4 mg 01/24/25 19:33 01/24/25 19:54 Ondansetron Hcl 4 Mg/2 Ml Vial IVPUSH 01/24/25 19:34 4 mg ONCE ONE Administration Tamsulosin HCl 0.4 mg 01/24/25 19:33 01/24/25 19:54 Tamsulosin Hcl 0.4 Mg Capsule PO 01/24/25 19:34 0.4 mg ONCE ONE Administration Medical Decision Making Medical Decision Making [facility] Narrative: 54-year-old female history of hypothyroidism diabetes hypertension presented hospital today for evaluation of sudden onset of right flank pain that started 3 days ago that is colicky in nature. Concerns for possible nephrolithiasis Given patient's fall. And right flank pain we will obtain a CT abdomen and pelvis. We will plan to rule out nephrolithiasis as well. UA will be obtained assess for any signs of infected kidney stone. However patient appears to be well does not appear to be toxic on my exam. For her symptoms we will plan to give her some IV Toradol IV Zofran, IV fluid, tamsulosin. I do not think patient has sepsis. Review patient's lab work. CBC is unremarkable no significant abnormality on chemistry, patient UA shows leuk esterase small protein, no bacteria. However patient had a recent UA back on 01/07/2025 which shows arch to the x-ray bacteria. Patient stated that she was placed on Augmentin during and finish the course. We will plan to prescribe patient has some Keflex and lidocaine patch for her pain. Instruct her to take Tylenol for pain avoid Advil at this time as this may assess her stomach. Patient will be discharged home. No sign of kidney stone her CAT scan. No acute intra-abdominal pathologies. Differential Diagnosis Differential Diagnoses: The differential diagnosis associated with the presentation includes Nephrolithiasis, retroperitoneal hematoma, liver laceration, pyelonephritis, UTI Lab Data [facility] Lab Attestation statement: I reviewed the patient's lab results. 01/24/25 17:36 01/24/25 17:36 Labs: Lab Results 01/24/25 01/24/25 Range/Units 17:36 19:30 WBC 7.2 (4.8-10.8) X10*3/uL RBC 4.66 (4.20-5.50) X10*6/uL Hgb 13.7 (12.0-16.0) g/dl Hct 39.8 (37.0-47.0) % MCV 85.4 (80.0-98.0) fL MCH 29.4 (27.0-33.0) pg MCHC 34.4 (31.0-35.0) g/dl RDW 12.9 (11.0-16.0) % Plt Count 271 (160-400) X10*3/uL MPV 10.3 (9.4-12.3) fL Immature Gran % (Auto) 0.3 (0.0-0.4) % Neut % (Auto) 45.4 (45-73) % Lymph % (Auto) 43.6 H (20-40) % [place] % (Auto) 5.7 (2-11) % Eos % (Auto) 3.6 (0-4) % Baso % (Auto) 1.4 (0-2) % Lymph # (Auto) 3.1 (1.2-4.9) X10*3/uL [place] # (Auto) 0.4 (0.1-1.2) X10*3/uL Eos # (Auto) 0.3 (0.0-0.4) X10*3/uL Baso # (Auto) 0.1 (0.0-0.2) X10*3/uL Abs Immat Gran (auto) 0.02 (0.00-0.03) X10*3/uL Absolute Neuts (auto) 3.3 (2.0-8.3) x10*3/uL Absolute Nucleated RBC 0.000 (0.0-0.012) X10*3/uL Nucleated RBC % (auto) 0.0 (0.0-0.2) /100WBC Sodium 139 (135-145) mmol/L Potassium 5.0 (3.3-5.1) mmol/L Chloride 104 (96-108) mmol/L Carbon Dioxide 28 (22-29) mmol/L Anion Gap 12 (12-20) BUN 17 H (9-16) mg/dL Creatinine 0.97 (0.5-1.4) mg/dL Estim Creat Clear Calc 79.1 Estimated GFR 60 Random Glucose 108 (60-115) mg/dL Calcium 9.6 D (8.4-10.2) mg/dL Magnesium 2.0 (1.6-2.6) mg/dL Total Bilirubin 0.4 (0.0-1.0) mg/dL AST 27 (5-31) U/L ALT 9 (0-31) U/L Alkaline Phosphatase 89 (39-117) U/L Total Protein 7.4 (6.5-8.0) g/dL Albumin 3.9 (3.5-5.0) g/dL Lipase 23 (8-78) U/L Urine Color Yellow Urine Appearance Clear Urine pH 6.0 (5.0-9.0) Ur Specific [place] 1.015 (1.005-1.025) Urine Protein 100 (2+) H (Neg-Trace) mg/dL Urine Glucose (UA) Negative (Negative) mg/dL Urine Ketones Trace (Negative) mg/dL Urine Blood Small (1+) H (Negative) Urine Nitrite Negative (Negative) Ur Leukocyte Esterase Moderate (2+) H (Negative) Urine RBC 6-10 H (0-2) /HPF Urine WBC 6-10 H (0-5) /HPF Ur Squamous Epith Cells 3-5 (0-2) /HPF Urine Bacteria None Seen (None Seen) Hyaline Casts 3-5 (0-2) /LPF Independent Interpretation I performed an independent interpretation of an: CT Scan Radiology Impression Discussion of test interpretation with radiology: I have reviewed the radiologist's reading. Prescription Management I considered prescription management with: Antibiotic Discharge Plan Discharge Clinical Impression: Acute flank pain Patient Disposition: Home, Self-Care Additional Instructions: Take the antibiotic as instructed, avoid advil as this may upset your stomach. Please follow up with your primary care doctor. Prescriptions: New cefpodoxime 200 mg tablet 200 mg PO BID 10 Days Qty: 20 0RF Rx Instructions: must administer with a meal/food lidocaine 4 % adhesive patch,medicated 1 patch topical DAILY PRN (Reason: pain) Qty: 10 0RF No Action (DME) FreeStyle Abdon 2 [place] Misc See Rx Instructions .Route Qty: 1 4RF Rx Instructions: tid testing (DME) blood-glucose meter [FreeStyle Lite Meter] Kit See Rx Instructions .Route Qty: 1 0RF Rx Instructions: As directed (DME) lancets [FreeStyle Lancets] 28 gauge misc See Rx Instructions .Route Qty: 300 1RF Rx Instructions: Test blood sugar 3 times per day FreeStyle Lite Strips Strip 1 strip miscellaneous QID Qty: 300 1RF lidocaine 5 % adhesive patch,medicated 1 patch topical DAILY PRN (Reason: pain) Qty: 15 0RF Rx Instructions: leave on most painful area for up to 12 hrs duloxetine 60 mg capsule,delayed release(DR/EC) 60 mg PO DAILY 90 Days Qty: 90 0RF quetiapine 50 mg tablet 50 mg PO BEDTIME 90 Days Qty: 90 0RF amlodipine 10 mg tablet 10 mg PO DAILY 90 Days Qty: 90 1RF Mounjaro 7.5 mg/0.5 mL pen injector 7.5 mg subcut QWEEK 28 Days Qty: 2 11RF atorvastatin 40 mg tablet 40 mg PO BEDTIME Qty: 90 1RF omeprazole 20 mg capsule,delayed release(DR/EC) 20 mg PO DAILY Qty: 90 1RF (DME) FreeStyle Abdon 2 Sensor Kit See Rx Instructions .ROUTE .COMPLEX Qty: 6 0RF Dose Instruction: USE TO MONITOR BLOOD SUGAR TWICE DAILY, CHANGE EVERY 14 DAYS. Rx Instructions: USE TO MONITOR BLOOD SUGAR TWICE DAILY, CHANGE EVERY 14 DAYS. nicotine (polacrilex) 4 mg gum 4 mg buccal Q4H PRN (Reason: nicotine cravings) 30 Days Qty: 100 0RF levothyroxine [Synthroid] 150 mcg tablet 150 mcg PO DAILY Qty: 90 1RF gabapentin 800 mg tablet 800 mg PO TID Qty: 90 0RF (DME) Aerochamber Plus Z Stat Spacer See Rx Instructions .Route Qty: 1 0RF Rx Instructions: As directed insulin lispro 200 unit/mL (3 mL) insulin pen See Rx Instructions subcut BID 30 Days Qty: 6 6RF Rx Instructions: 8 units twice daily subcutaneously 2 times a day; insulin degludec [Tresiba FlexTouch U-200] 200 unit/mL (3 mL) insulin pen 36 unit subcut DAILY zolpidem 5 mg tablet 5 mg PO BEDTIME PRN buspirone 15 mg tablet 15 mg PO BID docusate sodium [Colace] 100 mg capsule 100 mg PO DAILY 30 Days Qty: 30 6RF meclizine 25 mg tablet 25 mg PO BID PRN (Reason: dizziness) 10 Days Qty: 20 0RF nicotine 21 mg/24 hr patch 24 hour 1 patch transdermal DAILY Qty: 28 0RF nicotine (polacrilex) 4 mg lozenge 4 mg buccal Q6H PRN (Reason: nicotine cravings) Qty: 108 0RF valsartan 80 mg tablet 80 mg PO DAILY Qty: 30 1RF Print Language: Romansh
[2025-01-24 17:45] LABS: MANUAL DIFF FLAG NO
[2025-01-24 17:59] LABS: Hematocrit 39.8 % (37.0-47.0); Hemoglobin 13.7 g/dl (12.0-16.0); Imm Gran Abs Auto 0.02 X10*3/uL (0.00-0.03); Imm Gran Pct Auto 0.3 % (0.0-0.4); Lymphocytes Absolute Auto 3.1 X10*3/uL (1.2-4.9); Mean Corpuscular HGB Conc 34.4 g/dl (31.0-35.0); Mean Corpuscular Hemoglobin 29.4 pg (27.0-33.0); Mean Corpuscular Volume 85.4 fL (80.0-98.0); NRBC Abs Auto 0.000 X10*3/uL (0.0-0.012); NRBC Pct Auto 0.0 /100WBC (0.0-0.2); Platelet Count 271 X10*3/uL (160-400); Red Blood Count 4.66 X10*6/uL (4.20-5.50); White Blood Count 7.2 X10*3/uL (4.8-10.8)
[2025-01-24 18:00] LABS: Alanine Aminotransferase 9 U/L (0-31); Albumin Level 3.9 g/dL (3.5-5.0); Alkaline Phosphatase 89 U/L (39-117); Anion Gap 12 (12-20); Aspartate Amino Transferase 27 U/L (5-31); Blood Urea Nitrogen 17 mg/dL (9-16); Calcium 9.6 mg/dL (8.4-10.2); Carbon Dioxide 28 mmol/L (22-29); Chloride 104 mmol/L (96-108); Creatinine Clr Calc Pharmacy 79.1; Estimated Glomerular Filt Rate 60; Lipase 23 U/L (8-78); Magnesium 2.0 mg/dL (1.6-2.6); Potassium 5.0 mmol/L (3.3-5.1); Sodium 139 mmol/L (135-145); Total Protein 7.4 g/dL (6.5-8.0)
--- NOTE | 2025-01-24 18:53 | PC.NURSE ---
pt was told we need a urine to send to the lab, pt ambulated to the bathroom and told a tech she felt dizzy- pt also stated to this nurse she does have episodes of dizziness at times with a history of vertigo. returned back to the room without giving a urine sample. pt currently a&ox3, vitals were stable in triage, has c/o 8/10 rt flank pain radiating to rt abdomen. labs previously drawn, pt awaiting provider evaluation. call brantley within reach, plan of care ongoing
[2025-01-24 19:10] VITALS: BP 137/76; PULSE 90; RESP 16; TEMP 36.9; O2SAT 96
[2025-01-24 19:39] LABS: Appearance Urine Clear; Glucose Urine UA Negative (Negative); PH 6.0 (5.0-9.0); Specific Gravity - Urine 1.015 (1.005-1.025); UMIC TRIGGER UACC YES
[2025-01-24 19:41] LABS: UACC Culture Trigger YES
[2025-01-24] MEDS: Lidocaine 4 % Patch ADH..PATCH 1 PATCH TRANSDERMA (22:03)
[2025-01-24 22:15] VITALS: BP 136/75; PULSE 81; RESP 18; TEMP 36.4; O2SAT 97
[2025-01-24 22:23] VITALS: BP 136/75; PULSE 81; RESP 18; TEMP 36.4; O2SAT 97
== END 2025-01-24 22:24 | disposition home or self-care (01) ==
PROVIDERS: Physician Assistant Medical; Emergency Provider Student in an Organized Health Care Education/Training Program; PCP Nurse Practitioner Family
DX: R11.2 Nausea with vomiting, unspecified (principal); R10.9 Unspecified abdominal pain; E66.9 Obesity, unspecified; I10 Essential (primary) hypertension; Z68.38 Body mass index [BMI] 38.0-38.9, adult; Z87.442 Personal history of urinary calculi; Z91.81 History of falling; Z79.899 Other long term (current) drug therapy
CPT/HCPCS: 36415; 74176; 80053; 81001; 83690; 83735; 85025; 87086; 96361; 96374; 96375; 99284; J1885; J2405

== ENCOUNTER → 2025-01-24 19:33 | Outpatient (BNV) | payer OTHER, SELFPAY | PROVIDERS: Emergency Provider Student in an Organized Health Care Education/Training Program; PCP Nurse Practitioner Family; Visit Provider Radiology Diagnostic Radiology | DX: R10.11 Right upper quadrant pain (principal) | CPT/HCPCS: 74176 ==

== ENCOUNTER 2025-02-12 16:14 | Outpatient (AMB) | payer OTHER, SELFPAY ==
--- NOTE | 2025-02-12 16:16 | MHC.PC.OV ---
Vital Signs 02/12/25 16:17 Height 5 ft 5 in Weight 234 lb BMI 38.9 BP 130/76 Blood Pressure Location Lt brachial Position Sitting Pulse 108 H Pulse Source Pulse Oximeter Temp 99.0 F Temp Source Oral Pulse Oximetry (%) 96 Oxygen Delivery Method Room Air Intake Visit Reasons: Pre-op, cayetano Altamirano Cellular Phone Repairer Required: No Accompanied by: Self / Same As Patient Allergies doxycycline (DOXYCYCLINE) Allergy (Severe, Verified 02/12/25 16:21) THROAT SWELLING clindamycin (CLINDAMYCIN) Allergy (Intermediate, Verified 02/12/25 16:21) CHEST PAIN Sulfa (Sulfonamide Antibiotics) Allergy (Unknown, Verified 02/12/25 16:21) makes her sick, vomit trimethoprim (From BACTRIM) Allergy (Unknown, Verified 02/12/25 16:21) NAUSEA & VOMITING dulaglutide (From Trulicity) Adverse Reaction (Severe, Verified 02/12/25 16:21) Diarrhea empagliflozin (From Jardiance) Adverse Reaction (Intermediate, Verified 02/12/25 16:21) uti sulfamethoxazole (From BACTRIM) Adverse Reaction (Mild, Verified 02/12/25 16:21) NAUSEA & VOMITING lisinopril Allergy (Unknown, Uncoded 01/24/25 17:19) headaches Tobacco use date assessed: 09/15/24 Dental Screening Dental Screen Date: 09/15/24 HPI Pre-op, cayetano Altamirano HPI Details Chief Complaint The patient presents for a preoperative evaluation for eye surgery due to diabetic retinopathy. History of Present Illness The patient is a 54-year-old female presenting with a preoperative evaluation for eye surgery due to diabetic retinopathy. She is scheduled for PRP LZ laser surgery under general anesthesia as she cannot tolerate being awake or light sedation. The patient denies any recent chest pain, increased shortness of breath, syncope, or palpitations. She reports doing well overall, with an A1c of 6.0, indicating good diabetes management. She is actively working on reducing her smoking habit, using nicotine patches and gum as needed. The patient has been informed about the risks associated with general anesthesia, and she is clear for surgery from a medical standpoint. Social History - Smoking: Patient is reducing smoking, using nicotine patches and gum as needed. Health Maintenance - Diabetes management: A1c is 6.0, indicating good control. Review of Systems - Cardiovascular: Denies chest pain, syncope, or palpitations. - Respiratory: Denies increased shortness of breath. Physical Exam General: Cooperative, healthy appearing, comfortable, no acute distress and well developed, morbidly obese Orientation: Patient oriented x3 Head: Normal to inspection, no lymphadenopathy noted Ears: Hearing grossly normal bilaterally Nose: Normal external nose present Face and sinus: Normal facial exam Eyes: Appearance normal, both eyes and all related structures Neck: Normal visual inspection and Yes full ROM Respiratory: Some scattered faint wheezes though moving air bilaterally Cardiovascular: Regular rate and rhythm. Normal S1 and S2 GI: Normal to inspection. Soft to palpation and nontender Neuro: Patient oriented x3 Extremities: Normal to inspection Results - Labs: A1c is 6.0, indicating good diabetes control. - EKG: No changes noted. Plan 1. Diabetic Retinopathy The patient is scheduled for a PRP LZ under general anesthesia due to diabetic retinopathy. She has been informed about the risks associated with general anesthesia and is medically cleared for the procedure. 2. Nicotine Dependence The patient is actively working on reducing her smoking habit, utilizing nicotine patches and gum as needed. Patient Instructions - Continue to manage diabetes effectively, aiming to maintain A1c levels. - Use nicotine patches and gum as needed to reduce smoking - Follow preoperative instructions provided by the surgical team [facility] Medical History History of thyroid cancer Hypothyroid Uncontrolled diabetes mellitus with hyperglycemia Diabetic retinopathy Hypertensive retinopathy Essential hypertension Hyperlipidemia Nicotine dependence, cigarettes, uncomplicated Sleep apnea Obesity (BMI 30-39.9) Insomnia Anxiety Depression Migraines B12 deficiency Vitamin D deficiency Hahn's palsy Sciatic leg pain Surgical History S/P thyroid biopsy History of thyroidectomy History of elbow surgery History of tubal ligation Family History Father HTN (hypertension) CVD (cardiovascular disease) Diabetes mellitus Mental health disorder Mother Diabetes mellitus Uterine cancer COPD (chronic obstructive pulmonary disease) Mental health disorder Maternal Grandmother Breast cancer Paternal Aunt Breast cancer Brother No problems noted. Sister Substance use disorder Mental health disorder Sister No problems noted. Sister No problems noted. Daughter No problems noted. Son No problems noted. Son No problems noted. Son No problems noted. Son No problems noted. Son No problems noted. Son No problems noted. Social History Household Members: Family Housing: Apartment Do you presently have visiting nurse or other home services: No Alcohol intake: current Alcohol intake frequency: holidays/special occasions only Patient Tobacco Use Status: Current everyday Tobacco user Tobacco use type: Cigarette Cigarettes Per Day: 10 Years Smoked: (onset 16yo, 1ppd x 38yrs, 35pyh) Packs per year/per ci.00 e-Cigarette/Vaping Use: Never Used Second Hand Smoke Exposure: No service: No Current occupational status: disabled Current occupation: [employer] Cognitive needs: No Hearing needs: No Vision needs: Yes Questionnaire Thrive Questionnaire Date Thrive assessed: 06/07/24 I am a: Patient What is your living situation today?: I have a steady place to live Within the past 12 months, did the food you bought not last and you didn't have the money to get more?: Sometimes True Within the past 12 months, did you worry whether your food would run out before you got money to buy more?: Sometimes True Do you have trouble paying for medicines?: No Do you have trouble getting transportation to medical appointments?: No Do you have trouble paying your heating and electricity bill?: No Do you have trouble taking care of your child, family member or friend?: No Do you have trouble with day-to-day activities such as bathing, preparing meals, shopping, managing finances, etc.?: Yes Are you currently unemployed and looking for a job?: Yes Are you interested in more education?: No Please select the resources that you would like help with: Daily support Currently or been in a relationship where the following occur: No concerns reported THRIVE Score: 2 MILLIE-7 AMB Questionnaire MILLIE-7 Date MILLIE - 7 assessed: 09/15/24 Source: Developed by Drs. Jonathon Kenyon, Valeri Rios, Ulysses Gambino and colleagues, with an educational harrison from [employer]. Physical exam (Primary Care) Vital Signs: Last Vital Signs Temp 99.0 F 02/12/25 16:17 Pulse 108 H 02/12/25 16:17 BP 130/76 02/12/25 16:17 Pulse Ox 96 02/12/25 16:17 Oxygen Delivery Method Room Air 02/12/25 16:17 BMI result Body Mass Index 38.9 Tobacco/Smoking Status: Tobacco use Status Tobacco use date assessed 09/15/24 02/12/25 16:25 Patient Tobacco Use Status Current everyday Tobacco 02/12/25 16:25 Tobacco use type Cigarette 02/12/25 16:25 e-Cigarette/Vaping Use Never Used 02/12/25 16:25 Thrive Assessment: Date of Thrive Assessment Date Thrive assessed 06/07/24 02/12/25 16:25 Currently or been in a relationship where the following occur: No concerns reported Coding Level of Care Code Est Pt Prev Care 40-64y(21424) Diagnoses Pre-op evaluation Z01.818 Assessment & Plan Assessment & Plan (1) Pre-op evaluation: Code(s): Z01.818 - Encounter for other preprocedural examination Category: Medical Plan . Medications: New nicotine (Nicoderm CQ) 1 patch transdermal DAILY 28 ea 0RF
[2025-02-12 16:17] VITALS: BP 130/76; PULSE 108; TEMP 37.2; O2SAT 96; BMI 38.9
== END 2025-02-13 06:33 | disposition home or self-care (01) ==
LOC: HO.HMCC 16:15
PROVIDERS: PCP Nurse Practitioner Family; Visit Provider Nurse Practitioner Family
DX: Z01.818 Encounter for other preprocedural examination (principal)

== ENCOUNTER → 2025-02-12 16:14 | Outpatient (BNVA) | payer OTHER, SELFPAY | PROVIDERS: PCP Nurse Practitioner Family; Visit Provider Nurse Practitioner Family | DX: Z01.818 Encounter for other preprocedural examination (principal); E11.319 Type 2 diabetes mellitus with unspecified diabetic retinopathy without macular edema; F17.210 Nicotine dependence, cigarettes, uncomplicated | CPT/HCPCS: 99212 ==